=== PATIENT | male | born 1945 | race American Indian/Alaskan Native ===

== ENCOUNTER 2016-09-23 17:35 | Emergency (ER) | payer MEDICARE ==
[2016-09-23 18:13] LABS: Hematocrit 30.9 % (35.5-45.6); Hemoglobin 10.3 gm/dl (11.8-15.2); Mean Corpuscular HGB Conc 33 % (32-34); Mean Corpuscular Hemoglobin 29 pg (28-32); Mean Corpuscular Volume 87 fl (84-94); Platelet Count 277 K/mm3 (140-440); Red Blood Count 3.55 M/mm3 (3.65-5.03); Red Cell Distribution Width 13.8 % (13.2-15.2); White Blood Count 4.5 K/mm3 (4.5-11.0)
[2016-09-23 18:33] LABS: INR 1.07 (0.87-1.13)
[2016-09-23 18:34] LABS: Partial Thromboplastin Time 28.6 Sec. (24.2-36.6)
[2016-09-23 18:38] LABS: Anion Gap 18 mmol/L; BUN/Creatinine Ratio 15.55; Blood Urea Nitrogen 28 mg/dL (9-20); Calcium 8.5 mg/dL (8.4-10.2); Carbon Dioxide 23 mmol/L (22-30); Chloride 102.6 mmol/L (98-107); Glucose 149 mg/dL (75-100); Potassium 4.4 mmol/L (3.6-5.0); Sodium 139 mmol/L (137-145)
[2016-09-23 19:32] LABS: Blastocytes % (Manual) 0 %
[2016-09-23 19:33] LABS: Diff Status Complete; Hypochromasia 1+; Ovalocytes Few
[2016-09-24] MEDS ORDERED: APRESOLINE ONE (05:41)
[2016-09-24] MEDS ORDERED: APRESOLINE PO ONE (05:45)
[2016-09-24 05:47] VITALS: BP 194/80
--- NOTE | 2016-09-24 08:18 | Emergency Department Report ---
ED Chest Pain HPI - General Chief Complaint: Chest Pain Stated Complaint: CHEST PAIN Time Seen by Provider: 09/24/16 07:57 Source: family Mode of arrival: Wheelchair Limitations: Other - History of Present Illness Initial Comments: 70-year-old male presents to the emergency department complaining of chest pain. Patient states he was having burning pain in the center of his chest that began yesterday. His pain was constant, but has resolved since arriving in the emergency department. He denies associated shortness of breath, dizziness, diaphoresis, nausea, or vomiting. The pain did not radiate. There are no other complaints. MD Complaint: chest pain -: Gradual, days(s) (1) Onset: during rest Pain Location: substernal Pain Radiation: none Severity: moderate Severity scale (0 -10): 0 Quality: other (burning) Consistency: constant, now resolved Improves With: nothing Worsens With: nothing re: denies: nausea, vomting, diaphoresis, dyspnea Other Symptoms: denies: cough, syncope, palpitations Treatments Prior to Arrival: none Aspirin use within the Past 7 Days: (0) No - Related Data Home Medications Medication Instructions Recorded Confirmed Last Taken Multivit-Min/FA/Lycopen/Lutein 1 tab PO DAILY 07/08/16 07/08/16 07/07/16 [Centrum Silver Tablet] Previous Rx's Medication Instructions Recorded Last Taken Type Aspirin 81 mg PO DAILY #30 tab.chew 07/12/16 Unknown Rx Pravastatin Sodium [Pravastatin] 20 mg PO QHS #60 tablet 07/12/16 Unknown Rx hydrALAZINE [Apresoline TAB] 25 mg PO Q8HR #90 tab 07/12/16 Unknown Rx Allergies Allergy/AdvReac Type Severity Reaction Status Date / Time No Known Allergies Allergy Verified 09/23/16 17:44 Heart Score - HEART Score History: Slightly suspicious EKG: Normal Age: > 65 Risk factors: 1-2 risk factors Troponin: < normal limit HEART Score: 3 ED Review of Systems ROS: Stated complaint: CHEST PAIN Other details as noted in HPI Comment: All other systems reviewed and negative Cardiovascular: chest pain ED Past Medical Hx - Past Medical History Previous Medical History?: Yes Hx Hypertension: Yes Hx CVA: Yes (Left side deficit) Hx Congestive Heart Failure: No Hx Diabetes: Yes Hx Deep Vein Thrombosis: No Hx Arthritis: Yes Hx Seizures: Yes (last time 30 yrs ago) Hx Asthma: No Hx COPD: No Additional medical 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 Noncompliant with medications - Surgical History Past Surgical History?: Yes Hx Pacemaker: No Hx Internal Defibrillator: No Additional Surgical History: Right shoulder surgery - Family History Family history: no significant - Social History Smoking Status: Never Smoker Substance Use Type: None - Medications Home Medications: Home Medications Medication Instructions Recorded Confirmed Last Taken Type Multivit-Min/FA/Lycopen/Lutein 1 tab PO DAILY 07/08/16 07/08/16 07/07/16 History [Centrum Silver Tablet] Aspirin 81 mg PO DAILY #30 tab.chew 07/12/16 Unknown Rx Pravastatin Sodium [Pravastatin] 20 mg PO QHS #60 tablet 07/12/16 Unknown Rx hydrALAZINE [Apresoline TAB] 25 mg PO Q8HR #90 tab 07/12/16 Unknown Rx ED Physical Exam - General Limitations: Physical Limitation, Other General appearance: alert, in no apparent distress - Head Head exam: Present: atraumatic, normocephalic - Eye Eye exam: Present: normal appearance, PERRL, EOMI - ENT ENT exam: Present: normal exam, normal orophraynx, mucous membranes moist - Neck Neck exam: Present: normal inspection, full ROM. Absent: tenderness - Respiratory Respiratory exam: Present: normal lung sounds bilaterally. Absent: respiratory distress - Cardiovascular Cardiovascular Exam: Present: normal rhythm, bradycardia, normal heart sounds - GI/Abdominal GI/Abdominal exam: Present: soft, normal bowel sounds. Absent: distended, tenderness - Extremities Exam Extremities exam: Present: normal inspection, full ROM. Absent: tenderness - Back Exam Back exam: Present: normal inspection, full ROM. Absent: tenderness - Neurological Exam Neurological exam: Present: alert, oriented X3. Absent: motor sensory deficit - Skin Skin exam: Present: warm, dry, intact ED Course Vital Signs 09/23/16 09/24/16 09/24/16 17:44 05:15 05:47 Temperature 98 F 97.8 F Pulse Rate 66 54 L 58 L Respiratory 18 20 Rate Blood Pressure 181/74 194/78 194/80 O2 Sat by Pulse 98 99 Oximetry 09/24/16 08:12 Temperature Pulse Rate Respiratory 20 Rate Blood Pressure O2 Sat by Pulse 99 Oximetry GUTIERREZ score - Gutierrez Score Age > 65: (1) Yes Aspirin use within the Past 7 Days: (0) No 3 or more CAD Risk Factors: (1) Yes 2 or more Angina events in past 24 hrs: (1) Yes Known CAD with more than 50% Stenosis: (0) No Elevated Cardiac Markers: (0) No ST Deviation Greater than 0.5mm: (0) No GUTIERREZ Score: 3 ED Medical Decision Making - Lab Data Result diagrams: 09/23/16 17:50 09/23/16 17:50 - EKG Data -: EKG Interpreted by Me EKG shows normal: sinus rhythm, axis, intervals Rate: bradycardia - EKG Data When compared to previous EKG there are: no significant change Interpretation: unchanged when compared t (07/08/2016), LVH (with repolarization abnormality), other (first-degree AV block) - Medical Decision Making Patient has remained pain-free in the emergency department. His ECG is unchanged from previous. He has had 3 negative troponin T tests. Discussion held with the patient regarding admission due to his multiple risk factors. Patient states he would like to go home. Patient understands risks involved with being discharged home at this time. He is instructed to contact his primary care physician in the morning for close follow-up. He is also instructed to return to the emergency department should his symptoms recur. - Differential Diagnosis ACS, atypical chest pain, GERD Critical care attestation.: If time is entered above; I have spent that time in minutes in the direct care of this critically ill patient, excluding procedure time. ED Disposition Clinical Impression: Acute chest pain Disposition: DC-01 TO HOME OR SELFCARE Is pt being admited?: No Condition: Stable Instructions: Chest Pain (ED) Referrals: PRIMARY CARE, [Primary Care Provider] - 2-3 Days Time of Disposition: 08:25
== END 2016-09-24 08:44 | disposition home or self-care (01) ==
LOC: ED 17:35
DX: R07.9 Chest pain, unspecified (principal); I10 Essential (primary) hypertension; I63.9 Cerebral infarction, unspecified; E11.9 Type 2 diabetes mellitus without complications; M19.90 Unspecified osteoarthritis, unspecified site; Z79.82 Long term (current) use of aspirin
CPT/HCPCS: 36415; 80048; 84484; 85007; 85025; 85610; 85730; 93005; 93010

== ENCOUNTER 2016-10-03 12:19 | Emergency (ER) | payer MEDICARE ==
[2016-10-03 12:57] LABS: Basophils % (Auto) 1.9 % (0.0-1.8); Eosinophils % (Auto) 3.8 % (0.0-4.3); Hematocrit 33.1 % (35.5-45.6); Hemoglobin 10.9 gm/dl (11.8-15.2); Mean Corpuscular HGB Conc 33 % (32-34); Mean Corpuscular Hemoglobin 29 pg (28-32); Mean Corpuscular Volume 88 fl (84-94); Platelet Count 284 K/mm3 (140-440); Red Blood Count 3.76 M/mm3 (3.65-5.03); Red Cell Distribution Width 13.7 % (13.2-15.2); White Blood Count 3.7 K/mm3 (4.5-11.0)
[2016-10-03 13:17] LABS: BUN/Creatinine Ratio 16.66; Chloride 104.1 mmol/L (98-107); Potassium 4.5 mmol/L (3.6-5.0)
[2016-10-03] MEDS ORDERED: PEPCID IV ONE (13:34)
[2016-10-03] MEDS ORDERED: APRESOLINE IV ONE (13:35)
[2016-10-03] MEDS ORDERED: ALUM-MAG HYDROX-SIMETH 200-200-20MG/5ML PO ONE (13:35)
[2016-10-03] MEDS ORDERED: CARAFATE PO ONE (13:35)
--- NOTE | 2016-10-03 13:35 | Emergency Department Report ---
ED Chest Pain HPI - General Chief Complaint: Chest Pain Stated Complaint: CHEST PAIN Time Seen by Provider: 10/03/16 13:17 Source: patient, EMS, RN notes reviewed, old records reviewed Mode of arrival: Stretcher Limitations: Physical Limitation - History of Present Illness Initial Comments: This is a 70-year-old male. He is previously unknown to me. Past medical history includes back pain, hypertension, diabetes, chronic asymptomatic sinus bradycardia As per review of old medical records, the patient had a negative heart catheterization in 2013 with an ejection fraction 55%, and had a nuclear stress test that was performed earlier on this here. He was evaluated and interviewed by the travel insurance agent, emiliano Green, who stated "I have canceled the cardiac catheterization plan for this patient. On his presentation, there was no chest pain, instead he complains of low back musculoskeletal type pain, as well as nonspecific abdominal pain. I have reviewed the thallium stress test ([performed June 2016]), which shows a basilar defect of mild intensity, likely diaphragmatic attenuation." Cardiology at that time recommended no further cardiac workup/risk stratification. The patient is brought to the hospital today by EMS with complaint of chest pain. The chest pain is right-sided and does not radiate to the back, arms or neck. There is no nausea, vomiting, diaphoresis. The patient described the pain as "pins sticking him in the chest." Patient has no shortness of breath, lower extremity pain or lower extremity swelling. No recent trips greater than 4 hours. No recent hospital admissions. No cough. Patient requested to eat. MD Complaint: chest pain -: hour(s) (7 am this morning) Onset: during rest Pain Location: right chest Pain Radiation: none Severity: mild Quality: aching Consistency: intermittent Improves With: nothing Worsens With: nothing re: denies: nausea, vomting, diaphoresis, dyspnea, sense of impending doom Treatments Prior to Arrival: aspirin, nitroglycerin Aspirin use within the Past 7 Days: (1) Yes - Related Data On Oral Contraceptives: No Home Medications Medication Instructions Recorded Confirmed Last Taken Multivit-Min/FA/Lycopen/Lutein 1 tab PO DAILY 07/08/16 07/08/16 07/07/16 [Centrum Silver Tablet] Previous Rx's Medication Instructions Recorded Last Taken Type Aspirin 81 mg PO DAILY #30 tab.chew 07/12/16 Unknown Rx Pravastatin Sodium [Pravastatin] 20 mg PO QHS #60 tablet 07/12/16 Unknown Rx hydrALAZINE [Apresoline TAB] 25 mg PO Q8HR #90 tab 07/12/16 Unknown Rx Allergies Allergy/AdvReac Type Severity Reaction Status Date / Time No Known Allergies Allergy Verified 09/23/16 17:44 Heart Score - HEART Score History: Slightly suspicious EKG: Non-specific Age: > 65 Risk factors: > 3 risk factors or hx of atherosclerotic disease Troponin: < normal limit HEART Score: 5 - Critical Actions Critical Actions: 4-6 pts:12-16.6% risk of adverse cardiac event. 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 Noncompliant with medications - Surgical History Hx Pacemaker: No Hx Internal Defibrillator: No Additional Surgical History: Right shoulder surgery - Social History Smoking Status: Never Smoker Substance Use Type: None - Medications Home Medications: Home Medications Medication Instructions Recorded Confirmed Last Taken Type Multivit-Min/FA/Lycopen/Lutein 1 tab PO DAILY 07/08/16 07/08/16 07/07/16 History [Centrum Silver Tablet] Aspirin 81 mg PO DAILY #30 tab.chew 07/12/16 Unknown Rx Pravastatin Sodium [Pravastatin] 20 mg PO QHS #60 tablet 07/12/16 Unknown Rx hydrALAZINE [Apresoline TAB] 25 mg PO Q8HR #90 tab 07/12/16 Unknown Rx ED Physical Exam - General Limitations: Physical Limitation General appearance: alert, in no apparent distress - Head Head exam: Present: atraumatic, normocephalic - Eye Eye exam: Present: normal appearance, EOMI. Absent: nystagmus - ENT ENT exam: Present: normal exam, normal orophraynx, mucous membranes moist, normal external ear exam - Neck Neck exam: Present: normal inspection, full ROM - Respiratory Respiratory exam: Present: normal lung sounds bilaterally. Absent: respiratory distress, wheezes, rales, rhonchi, stridor, chest wall tenderness, accessory muscle use, decreased breath sounds, prolonged expiratory - Cardiovascular Cardiovascular Exam: Present: regular rate, normal rhythm, normal heart sounds. Absent: systolic murmur, diastolic murmur, rubs, gallop - GI/Abdominal GI/Abdominal exam: Present: soft, normal bowel sounds. Absent: distended, tenderness, guarding, rebound, rigid - Rectal Rectal exam: Present: deferred - Extremities Exam Extremities exam: Present: normal inspection, normal capillary refill. Absent: calf tenderness - Back Exam Back exam: Present: normal inspection. Absent: CVA tenderness (R), paraspinal tenderness - Neurological Exam Neurological exam: Present: alert, oriented X3, motor sensory deficit (there is chronic weakness in the left upper extremity which is not new, worse or different) - Psychiatric Psychiatric exam: Present: normal affect, normal mood - Skin Skin exam: Present: warm, dry, intact, normal color. Absent: rash ED Course Vital Signs 10/03/16 10/03/16 10/03/16 12:24 14:49 15:57 Temperature 98.4 F 98.1 F Pulse Rate 60 71 Respiratory 16 Rate Blood Pressure 202/82 Blood Pressure 162/58 [Left] O2 Sat by Pulse 99 Oximetry - Reevaluation(s) Reevaluation #1: 10/03/16 16:54 troponin negative 2. Chest x-ray negative. Feels improved. Blood pressure improved. Patient will be discharged with instructions to follow up with outpatient cardiology. Return precautions are reviewed HOMER score - Homer Score Age > 65: (1) Yes Aspirin use within the Past 7 Days: (1) Yes 3 or more CAD Risk Factors: (1) Yes 2 or more Angina events in past 24 hrs: (0) No Known CAD with more than 50% Stenosis: (0) No Elevated Cardiac Markers: (0) No ST Deviation Greater than 0.5mm: (0) No HOMER Score: 3 ED Medical Decision Making - Lab Data Result diagrams: 10/03/16 12:41 10/03/16 12:41 Vital Signs 10/03/16 10/03/16 12:24 14:49 Temperature 98.4 F Pulse Rate 60 Blood Pressure 202/82 Lab Results 10/03/16 10/03/16 10/03/16 Range/Units 12:41 12:41 13:46 WBC 3.7 L (4.5-11.0) K/mm3 RBC 3.76 (3.65-5.03) M/mm3 Hgb 10.9 L (11.8-15.2) gm/dl Hct 33.1 L (35.5-45.6) % MCV 88 (84-94) fl MCH 29 (28-32) pg MCHC 33 (32-34) % RDW 13.7 (13.2-15.2) % Plt Count 284 (140-440) K/mm3 Lymph % (Auto) 40.6 H (13.4-35.0) % [place]ck[place] % (Auto) 6.9 (0.0-7.3) % Eos % (Auto) 3.8 (0.0-4.3) % Baso % (Auto) 1.9 H (0.0-1.8) % Lymph # 1.5 (1.2-5.4) K/mm3 [place]ck[place] # 0.3 (0.0-0.8) K/mm3 Eos # 0.1 (0.0-0.4) K/mm3 Baso # 0.1 (0.0-0.1) K/mm3 Seg Neutrophils % 46.8 (40.0-70.0) % Seg Neutrophils # 1.7 L (1.8-7.7) K/mm3 PT 13.6 (12.2-14.9) Sec. INR 0.99 (0.87-1.13) Sodium 140 (137-145) mmol/L Potassium 4.5 (3.6-5.0) mmol/L Chloride 104.1 (98-107) mmol/L Carbon Dioxide 19 L (22-30) mmol/L Anion Gap 21 mmol/L BUN 25 H (9-20) mg/dL Creatinine 1.5 (0.8-1.5) mg/dL Estimated GFR 56 ml/min BUN/Creatinine Ratio 16.66 % Glucose 99 (75-100) mg/dL Calcium 9.0 (8.4-10.2) mg/dL Troponin T 0.016 (0.00-0.029) ng/mL - EKG Data -: EKG Interpreted by Me - EKG Data 10/03/16 15:17 EKG #1 demonstrates sinus, 60 bpm, normal axis, normal intervals , high left ventricular voltage l /left ventricular hypertrophy, T-wave inversions 1 in aVL, abnormal EKG, not morphologically consistent with STEMI, appears unchanged when compared to prior EKG from 09/24/2016 Repeat EKG sinus EKG #2 was unchanged 10/03/16 16:55 - Radiology Data Radiology results: pending, image reviewed interpreted by me: X-ray the chest is negative for acute disease - Medical Decision Making Differential diagnosis: GERD, gastritis, pneumonia, acute coronary syndrome, poorly controlled chronic hypertension Assessment and plan: 70-year-old male with atypical chest pain, abnormal EKG unchanged from prior, troponin negative 2, EKG unchanged 2. Case was discussed with cardiology. Patient has had a recent ACS risk stratification, and as per cardiology, does not require admission for repeat ACS risk stratification. He is suitable to follow up with his outpatient primary care doctor, he felt improved after pain medicine, and he is instructed as to importance of blood pressure control. The patient had equal pulses in 4 extremities, therefore I think aortic disease is unlikely. Critical care attestation.: If time is entered above; I have spent that time in minutes in the direct care of this critically ill patient, excluding procedure time. ED Disposition Clinical Impression: Chest pain, Hypertension Disposition: DC-01 TO HOME OR SELFCARE Is pt being admited?: No Does the pt Need Aspirin: No Condition: Stable Instructions: Chest Pain (ED), Hypertension (ED) Additional Instructions: Continue current outpatient medications. Follow-up with the primary care doctor or annealing torch operator within the next 3-5 days. Blood pressure was very elevated in the emergency department. it needs to better controlled. This is why it is very important to closely follow up with your outpatient primary care doctor or annealing torch operator. Long-term complications of hypertension and elevated blood pressure includes stroke, heart attack, disability, , paralysis, loss of quality of life. Return to the ER right away with new pain, worsened pain, migration of pain, fevers, chills, confusion, shortness of breath, intractable nausea or vomiting, inability to tolerate liquid feeds. Referrals: CAMILLE ZAMORA MD [Primary Care Provider] - 3-5 Days FREDI GREEN MD [Staff Physician] - 3-5 Days DELICIA LOWERY MD [Staff Physician] - 3-5 Days
[2016-10-03 14:12] LABS: INR 0.99 (0.87-1.13)
[2016-10-03 17:37] VITALS: BP 169/47
--- NOTE | 2016-10-04 07:21 | XRay Report ---
AP CHEST: HISTORY: chest pain Compared to 07/10/16. AP view of the chest demonstrates a normal mediastinal and cardiac contour with clear lungs and normal bony and soft tissue structures. IMPRESSION: Unremarkable AP chest.
== END 2016-10-03 17:05 | disposition home or self-care (01) ==
LOC: ED 12:19
DX: R07.9 Chest pain, unspecified (principal); I10 Essential (primary) hypertension; E11.9 Type 2 diabetes mellitus without complications; M19.90 Unspecified osteoarthritis, unspecified site; Z86.73 Personal history of transient ischemic attack (TIA), and cerebral infarction without residual deficits; Z79.82 Long term (current) use of aspirin
CPT/HCPCS: 36415; 71020; 80048; 84484; 85025; 85610; 93005; 93010; 96374; 96375; 99285; J0360

== ENCOUNTER 2016-10-16 18:13 | Emergency (ER) | payer MEDICARE ==
[2016-10-16] MEDS ORDERED: CATAPRES ONE (19:39)
[2016-10-16] MEDS ORDERED: CATAPRES PO ONE (21:05)
[2016-10-16] MEDS ORDERED: SUBLIMAZE IV ONE (21:38)
--- NOTE | 2016-10-16 21:39 | Emergency Department Report ---
ED General Adult HPI - General Chief complaint: Extremity Injury, Upper Stated complaint: LEFT SHOULDER PAIN Time Seen by Provider: 10/16/16 21:13 Source: patient, RN notes reviewed, old records reviewed Mode of arrival: Ambulatory Limitations: Physical Limitation - History of Present Illness Initial comments: This is a 70-year-old male. I have evaluated him in the past. Past medical history includes back pain, hypertension, diabetes, chronic asymptomatic sinus bradycardia. Patient presents to the ER today with complaint of right shoulder pain. Patient reports a mechanical fall 3 days ago. Prior to the fall, there was no dizziness, lightheadedness, chest pain or shortness of breath. He reports falling onto his right shoulder, and onto his neck. He further reports that he has severe sharp right shoulder pain, and reports that he thinks that he broke the pain within his right shoulder. He also describes diffuse paracervical and cervical neck pain, and right upper extremity weakness and decreased sensation. There is no bladder or bowel retention or incontinence. There is no saddle anesthesia. The pain is sharp. It increases with palpation and range of motion. It decreases with rest. It does not radiate anywhere. -: Sudden, days(s) Location: neck, right, upper extremity Consistency: constant Improves with: rest Worsens with: movement Associated Symptoms: weakness. denies: confusion, chest pain, cough, diaphoresis, loss of appetite, malaise, nausea/vomiting, shortness of breath, syncope - Related Data Home Medications Medication Instructions Recorded Confirmed Last Taken Multivit-Min/FA/Lycopen/Lutein 1 tab PO DAILY 07/08/16 10/16/16 07/07/16 [Centrum Silver Tablet] Previous Rx's Medication Instructions Recorded Last Taken Type Aspirin 81 mg PO DAILY #30 tab.chew 07/12/16 Unknown Rx Pravastatin Sodium [Pravastatin] 20 mg PO QHS #60 tablet 07/12/16 Unknown Rx hydrALAZINE [Apresoline TAB] 25 mg PO Q8HR #90 tab 07/12/16 Unknown Rx Famotidine [Pepcid] 20 mg PO QDAY #30 tablet 10/03/16 Unknown Rx Sucralfate [Carafate] 1 gm PO Q6HR PRN #120 tablet 10/03/16 Unknown Rx Allergies Allergy/AdvReac Type Severity Reaction Status Date / Time No Known Allergies Allergy Verified 09/23/16 17:44 ED Review of Systems ROS: Stated complaint: LEFT SHOULDER PAIN Other details as noted in HPI Constitutional: denies: fever, malaise Eyes: denies: vision change ENT: denies: epistaxis Respiratory: denies: cough Cardiovascular: denies: chest pain Gastrointestinal: denies: abdominal pain Musculoskeletal: back pain, arthralgia, myalgia Skin: denies: lesions Neurological: weakness, numbness, paresthesias ED Past Medical Hx - Past Medical History Previous Medical History?: Yes Hx Hypertension: Yes Hx CVA: Yes (Left side deficit) Hx Congestive Heart Failure: No Hx Diabetes: Yes Hx Deep Vein Thrombosis: No Hx Arthritis: Yes Hx Seizures: Yes (last time 30 yrs ago) Hx Asthma: No Hx COPD: No Additional medical 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 Noncompliant with medications - Surgical History Past Surgical History?: Yes Hx Pacemaker: No Hx Internal Defibrillator: No Additional Surgical History: Right shoulder surgery - Social History Smoking Status: Former Smoker Substance Use Type: Alcohol - Medications Home Medications: Home Medications Medication Instructions Recorded Confirmed Last Taken Type Multivit-Min/FA/Lycopen/Lutein 1 tab PO DAILY 07/08/16 10/16/16 07/07/16 History [Centrum Silver Tablet] Aspirin 81 mg PO DAILY #30 tab.chew 07/12/16 10/16/16 Unknown Rx Pravastatin Sodium [Pravastatin] 20 mg PO QHS #60 tablet 07/12/16 10/16/16 Unknown Rx hydrALAZINE [Apresoline TAB] 25 mg PO Q8HR #90 tab 07/12/16 10/16/16 Unknown Rx Famotidine [Pepcid] 20 mg PO QDAY #30 tablet 10/03/16 10/16/16 Unknown Rx Sucralfate [Carafate] 1 gm PO Q6HR PRN #120 tablet 10/03/16 10/16/16 Unknown Rx ED Physical Exam - General Limitations: Physical Limitation General appearance: alert, in no apparent distress - Head Head exam: Present: atraumatic, normocephalic - Eye Eye exam: Present: normal appearance, EOMI. Absent: nystagmus - ENT ENT exam: Present: normal exam, normal orophraynx, mucous membranes moist, normal external ear exam - Neck Neck exam: Present: normal inspection, tenderness - Respiratory Respiratory exam: Present: normal lung sounds bilaterally. Absent: respiratory distress, wheezes, rales, rhonchi, stridor, chest wall tenderness - Cardiovascular Cardiovascular Exam: Present: regular rate, normal rhythm, normal heart sounds. Absent: systolic murmur, diastolic murmur, rubs, gallop - GI/Abdominal GI/Abdominal exam: Present: soft, normal bowel sounds. Absent: distended, tenderness, guarding, rebound, rigid - Rectal Rectal exam: Present: deferred - Extremities Exam Extremities exam: Present: normal inspection, tenderness (there is palpable right shoulder tenderness. The compartments are soft. 2+ pulses noted in the bilateral upper extremities, bilateral lower extremity's.), normal capillary refill, other (sensation intact to light touch and pain in the bilateral upper and lower extremities. However, patient versus decreased sensation to pinprick and light touch in the right upper extremity.). Absent: full ROM, pedal edema, joint swelling, calf tenderness - Back Exam Back exam: Present: normal inspection, full ROM. Absent: tenderness, CVA tenderness (R), CVA tenderness (L), muscle spasm, paraspinal tenderness, vertebral tenderness - Neurological Exam Neurological exam: Present: alert, oriented X3, motor sensory deficit (there is 5 out of 5 strength left upper extremity, 5 out of 5 strength bilateral lower extremities. There is 4 out of 5 strength right upper extremity, however this may be limited to pain.), other (sensation is intact to light touch bilaterally in the deltoid, median, radial, ulnar distribution. Patient reports decreased sensation in the right upper, and.) - Psychiatric Psychiatric exam: Present: normal affect, normal mood - Skin Skin exam: Present: warm, dry, intact, normal color. Absent: rash ED Course Vital Signs 10/16/16 10/16/16 10/16/16 19:26 21:01 21:10 Temperature 98.4 F Pulse Rate 60 52 L 81 Respiratory 18 16 Rate Blood Pressure 246/96 240/97 Blood Pressure 185/75 [Left] O2 Sat by Pulse 99 100 Oximetry - Reevaluation(s) Reevaluation #1: 10/16/16 21:49 Differential diagnosis: Intracranial injury, cervical spine injury, brachial plexopathy, shoulder fracture, shoulder dislocation, shoulder hardware fracture Assessment and plan: 70-year-old male status post reported mechanical fall 3 days ago, now with right shoulder pain and tenderness, plain film of the shoulder suggests hardware fracture, he endorses weakness, decreased sensation to light touch. He is placed in a cervical collar. We will maintain cervical spine precautions. Asked at noncontrast CT scan of the brain and cervical spine are ordered. Laboratory studies ordered. Pain medication is ordered. He is initially hypertensive, currently his blood pressure is 166/71. No other injuries noted on secondary survey. Patient will most likely require transfer to a trauma center and has neurosurgery/spine surgery available for consultation, as this facility does not have either of those services available. Reevaluation #2: 10/16/16 23:34 CT scan of the brain and cervical spine negative for fracture/ dislocation/intracranial hemorrhage. DJD noted. Case was presented to the trauma physician at [facility], Dr. Noyola, and they accepted the patient is an ER to ER transfer for trauma surgery consultation. Given that the patient is endorsing blunt trauma with dominant extremity neurologic complaints , and at this hospital does not have neurosurgery spine surgery of elbow for consultation, it is in the patient's best interests to have a formal consultation and evaluation by the aforementioned subspecialist. ED Medical Decision Making - Lab Data Result diagrams: 10/16/16 21:46 10/16/16 21:46 Vital Signs 10/16/16 10/16/16 19:26 21:01 Temperature 98.4 F Pulse Rate 60 52 L Respiratory 18 16 Rate Blood Pressure 246/96 Blood Pressure 185/75 [Left] O2 Sat by Pulse 99 100 Oximetry - Radiology Data Radiology results: image reviewed interpreted by me: X-ray of the right shoulder demonstrates fractured hardware, DJD, no obvious shoulder fracture or dislocation. Critical care attestation.: If time is entered above; I have spent that time in minutes in the direct care of this critically ill patient, excluding procedure time. ED Disposition Clinical Impression: Hypertension, Right shoulder pain, Right arm weakness Disposition: [id number] GEN HOSP IP Is pt being admited?: No Does the pt Need Aspirin: No Condition: Good Instructions: Hypertension (ED) Referrals: PRIMARY CARE, [Primary Care Provider] - 3-5 Days
--- NOTE | 2016-10-16 21:51 | XRay Report ---
FINAL REPORT EXAM: XR SHOULDER 2+V RT HISTORY: RIGHT SHOULDER PAIN TECHNIQUE: 3 views of right shoulder. PRIORS: None. FINDINGS: Postsurgical change in the glenoid, including metallic screw in the anterior margin. Degenerative change also in glenohumeral and AC joints. No apparent fracture or dislocation. Soft tissues grossly unremarkable. IMPRESSION: 1. No acute osseous abnormality. 2. Postsurgical and degenerative change.
[2016-10-16 22:05] LABS: Basophils % (Auto) 0.7 % (0.0-1.8); Eosinophils % (Auto) 2.1 % (0.0-4.3); Hematocrit 30.4 % (35.5-45.6); Hemoglobin 10.4 gm/dl (11.8-15.2); Mean Corpuscular HGB Conc 34 % (32-34); Mean Corpuscular Hemoglobin 29 pg (28-32); Mean Corpuscular Volume 86 fl (84-94); Platelet Count 270 K/mm3 (140-440); Red Blood Count 3.55 M/mm3 (3.65-5.03); Red Cell Distribution Width 13.8 % (13.2-15.2); White Blood Count 5.4 K/mm3 (4.5-11.0)
[2016-10-16 22:18] LABS: INR 1.06 (0.87-1.13)
[2016-10-16 22:19] LABS: Partial Thromboplastin Time 28.2 Sec. (24.2-36.6)
[2016-10-16 22:26] LABS: Alanine Aminotransferase 10 units/L (7-56); Albumin 3.6 g/dL (3.9-5); Albumin/Globulin Ratio 1.3 %; Alkaline Phosphatase 58 units/L (35-129); Anion Gap 17 mmol/L; BUN/Creatinine Ratio 16.42; Blood Urea Nitrogen 23 mg/dL (9-20); Calcium 8.8 mg/dL (8.4-10.2); Carbon Dioxide 23 mmol/L (22-30); Chloride 101.6 mmol/L (98-107); Creatine Kinase 194 units/L (55-170); Glucose 124 mg/dL (75-100); Sodium 138 mmol/L (137-145); Total Protein 6.4 g/dL (6.3-8.2)
--- NOTE | 2016-10-16 22:51 | Cat Scan Report ---
FINAL REPORT EXAM: CT HEAD/BRAIN WO CON HISTORY: Trauma TECHNIQUE: Noncontrast CT axial images of the brain. PRIORS: 07 July 2016. FINDINGS: No parenchymal mass, mass effect, hemorrhage, midline shift or hydrocephalus. No evidence of acute cortical infarct. No abnormal, extra-axial fluid or air collection. Small encephalomalacic focus in right posterior frontoparietal region again noted and may represent old ischemic change or infarct. Probable old lacunar infarct changes in bilateral cerebellar hemispheres again noted. Osseous calvarium grossly intact. IMPRESSION: 1. No acute intracranial findings. 2. Chronic ischemic changes suspected.
[2016-10-16 22:57] VITALS: BP 240/97
--- NOTE | 2016-10-16 23:00 | Cat Scan Report ---
FINAL REPORT EXAM: CT CERVICAL SPINE WO CON HISTORY: Trauma TECHNIQUE: Spiral CT scanning of the cervical spine, with axial images and multiplanar reformations. PRIORS: None. FINDINGS: Multilevel degenerative disc disease and spondylosis, including right paracentral disc-osteophyte complex in the C4-5 level partially flattening right ventral thecal sac and causing right neural foraminal encroachment. No acute compression deformity or gross malalignment of cervical vertebral bodies. No acute fracture identified. No acute, osseous central spinal canal encroachment. Paraspinal soft tissues grossly unremarkable. Possible pleuro-parenchymal thickening and scarring in the bilateral lung apices. IMPRESSION: 1. No acute compression deformity or apparent fracture in the cervical spine. 2. Degenerative spondylosis.
== END 2016-10-17 01:34 | disposition short-term general hospital (02) ==
LOC: ED 18:13
DX: M62.81 Muscle weakness (generalized) (principal); M25.511 Pain in right shoulder; I10 Essential (primary) hypertension; E11.9 Type 2 diabetes mellitus without complications; M19.90 Unspecified osteoarthritis, unspecified site; Z87.891 Personal history of nicotine dependence; Z79.82 Long term (current) use of aspirin; W19.XXXA Unspecified fall, initial encounter; Y93.89 Activity, other specified; Y99.9 Unspecified external cause status; Y92.89 Other specified places as the place of occurrence of the external cause
CPT/HCPCS: 36415; 70450; 72125; 73030; 80053; 82550; 84484; 85025; 85610; 85730; 96374; 99285; J3010

== ENCOUNTER 2017-06-07 11:45 | Inpatient (IN) | payer MEDICARE ==
[2017-06-07 12:34] LABS: Basophils # (Auto) 0.1 K/mm3 (0.0-0.1); Eosinophils # (Auto) 0.1 K/mm3 (0.0-0.4); Hematocrit 28.1 % (35.5-45.6); Hemoglobin 9.6 gm/dl (11.8-15.2); Lymphocytes # (Auto) 1.1 K/mm3 (1.2-5.4); Lymphocytes % (Auto) 40.3 % (13.4-35.0); Mean Corpuscular HGB Conc 34 % (32-34); Mean Corpuscular Hemoglobin 29 pg (28-32); Mean Corpuscular Volume 87 fl (84-94); Monocytes # (Auto) 0.2 K/mm3 (0.0-0.8); Monocytes % (Auto) 6.7 % (0.0-7.3); Platelet Count 245 K/mm3 (140-440); Red Blood Count 3.25 M/mm3 (3.65-5.03); Red Cell Distribution Width 13.3 % (13.2-15.2)
[2017-06-07 12:55] LABS: BUN/Creatinine Ratio 13; Blood Urea Nitrogen 20 mg/dL (9-20); Calcium 8.7 mg/dL (8.4-10.2); Hemolysis Index 4
--- NOTE | 2017-06-07 14:46 | XRay Report ---
AP CHEST: HISTORY: chest pain There is mild cardiomegaly mild central pulmonary venous congestion. The lungs are hyperinflated but clear. No evidence for pneumonia, CHF or pneumothorax. IMPRESSION: Cardiomegaly and pulmonary venous congestion.
--- NOTE | 2017-06-07 14:46 | Emergency Department Report ---
ED Chest Pain HPI - General Chief Complaint: Chest Pain Stated Complaint: WEAKNESS/SORE THROAT/BODY PAIN Time Seen by Provider: 06/07/17 14:18 Source: patient Mode of arrival: Ambulatory Limitations: No Limitations - History of Present Illness Initial Comments: Gilberto 71-year-old gentleman that presents to the emergency room with complaints of chest pain 2 days. Patient states that the chest pain is a burning sensation in his left chest and is also having left arm numbness. Patient states that he feels weak today. Patient also complains of sore throat and body pain. MD Complaint: chest pain -: Sudden Pain Location: substernal, left chest Pain Radiation: LUE Severity: moderate Severity scale (0 -10): 5 Quality: tightness, heaviness Consistency: constant Improves With: rest, remaining still Worsens With: exertion, movement re: dyspnea. denies: nausea, vomting, diaphoresis, sense of impending doom Other Symptoms: denies: cough, fever, syncope, rash, acid taste in mouth, leg swelling, palpitations, burping Treatments Prior to Arrival: none Aspirin use within the Past 7 Days: (0) No - Related Data On Oral Contraceptives: No Home Medications Medication Instructions Recorded Confirmed Last Taken Multivit-Min/FA/Lycopen/Lutein 1 tab PO DAILY 07/08/16 03/27/17 07/07/16 [Centrum Silver Tablet] Previous Rx's Medication Instructions Recorded Last Taken Type Aspirin 81 mg PO DAILY #30 tab.chew 07/12/16 Unknown Rx Famotidine [Pepcid] 20 mg PO QDAY #30 tablet 10/03/16 Unknown Rx NIFEdipine XL [Procardia Xl] 60 mg PO QDAY #30 tablet 03/28/17 Unknown Rx Valsartan [Diovan] 160 mg PO DAILY #30 tablet 03/28/17 Unknown Rx Allergies Allergy/AdvReac Type Severity Reaction Status Date / Time No Known Allergies Allergy Verified 06/07/17 12:00 Heart Score - HEART Score History: Slightly suspicious EKG: Non-specific Age: > 65 Risk factors: 1-2 risk factors Troponin: < normal limit HEART Score: 4 ED Review of Systems ROS: Stated complaint: WEAKNESS/SORE THROAT/BODY PAIN Other details as noted in HPI Constitutional: weakness. denies: chills, fever Eyes: denies: eye pain, eye discharge, vision change ENT: denies: ear pain, throat pain Respiratory: shortness of breath. denies: cough, wheezing Cardiovascular: chest pain. denies: palpitations Endocrine: no symptoms reported Gastrointestinal: denies: abdominal pain, nausea, diarrhea Genitourinary: denies: urgency, dysuria Musculoskeletal: denies: back pain, joint swelling, arthralgia Skin: denies: rash, lesions Neurological: weakness. 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 - Surgical History Past Surgical History?: Yes Hx Pacemaker: No Hx Internal Defibrillator: No Additional Surgical History: Right shoulder surgery - Family History Family history: hypertension - Social History Smoking Status: Never Smoker Substance Use Type: None - Medications Home Medications: Home Medications Medication Instructions Recorded Confirmed Last Taken Type Multivit-Min/FA/Lycopen/Lutein 1 tab PO DAILY 07/08/16 03/27/17 07/07/16 History [Centrum Silver Tablet] Aspirin 81 mg PO DAILY #30 tab.chew 07/12/16 03/27/17 Unknown Rx Famotidine [Pepcid] 20 mg PO QDAY #30 tablet 10/03/16 03/27/17 Unknown Rx NIFEdipine XL [Procardia Xl] 60 mg PO QDAY #30 tablet 03/28/17 Unknown Rx Valsartan [Diovan] 160 mg PO DAILY #30 tablet 03/28/17 Unknown Rx ED Physical Exam - General Limitations: No Limitations General appearance: alert, in no apparent distress - Head Head exam: Present: atraumatic, normocephalic - Eye Eye exam: Present: normal appearance - ENT ENT exam: Present: mucous membranes moist - Neck Neck exam: Present: normal inspection - Respiratory Respiratory exam: Present: normal lung sounds bilaterally. Absent: respiratory distress - Cardiovascular Cardiovascular Exam: Present: regular rate, normal rhythm. Absent: systolic murmur, diastolic murmur, rubs, gallop - GI/Abdominal GI/Abdominal exam: Present: soft, normal bowel sounds - Rectal Rectal exam: Present: deferred - Extremities Exam Extremities exam: Present: normal inspection - Back Exam Back exam: Present: normal inspection - Neurological Exam Neurological exam: Present: alert, oriented X3 - Psychiatric Psychiatric exam: Present: normal affect, normal mood - Skin Skin exam: Present: warm, dry, intact, normal color. Absent: rash ED Course Vital Signs 06/07/17 06/07/17 06/07/17 11:56 14:17 14:18 Temperature 98.9 F 98.1 F Pulse Rate 52 L 53 L Respiratory 18 13 13 Rate Blood Pressure 185/62 Blood Pressure 196/49 [Left] O2 Sat by Pulse 99 100 100 Oximetry - Reevaluation(s) Reevaluation #1: All results discussed with patient. Patient grew plan to admit to hospital. Hospitalist consult. Hospitalist agreed to admit. 06/07/17 15:55 GUTIERREZ score - Gutiererz Score Age > 65: (1) Yes Aspirin use within the Past 7 Days: (1) Yes 3 or more CAD Risk Factors: (1) Yes 2 or more Angina events in past 24 hrs: (0) No Known CAD with more than 50% Stenosis: (0) No Elevated Cardiac Markers: (0) No ST Deviation Greater than 0.5mm: (0) No GUTIERREZ Score: 3 ED Medical Decision Making - Lab Data Result diagrams: 06/07/17 12:19 06/07/17 12:19 - EKG Data -: EKG Interpreted by Me EKG shows normal: sinus rhythm, axis, intervals, QRS complexes, ST-T waves Rate: bradycardia - EKG Data Interpretation: LVH - Radiology Data Radiology results: image reviewed - Medical Decision Making Patient's 71-year-old male who presents emergent chest pain. Will admit patient to the hospital further evaluation and treatment. Patient agrees with plan of care. - Differential Diagnosis cp. acs. chf Critical care attestation.: If time is entered above; I have spent that time in minutes in the direct care of this critically ill patient, excluding procedure time. ED Disposition Clinical Impression: Chest pain, Uncontrolled hypertension, Anemia, Shortness of breath Disposition: OP ADMIT IP TO THIS HOSP Is pt being admited?: Yes Does the pt Need Aspirin: No Condition: Serious Time of Disposition: 15:05
[2017-06-07] MEDS ORDERED: APRESOLINE IV ONE (15:04)
[2017-06-07] MEDS ORDERED: APRESOLINE ONE (15:05)
[2017-06-07] MEDS: ASPIRIN PO ONE ×2 (15:10→15:15)
[2017-06-07] MEDS ORDERED: ASPIRIN ONE (15:11)
[2017-06-07] MEDS ORDERED: MORPHINE IV PRN (20:23)
[2017-06-07] MEDS ORDERED: DILAUDID IV PRN (20:23)
[2017-06-07] MEDS ORDERED: ZOFRAN IV PRN (20:23)
[2017-06-07] MEDS ORDERED: PERCOCET 5/325 PO PRN (20:23)
[2017-06-07] MEDS ORDERED: TYLENOL PO PRN (20:23)
[2017-06-07] MEDS ORDERED: SODIUM CHLORIDE FLUSH SYRINGE 10 ML IV PRN (20:23)
--- NOTE | 2017-06-07 20:23 | History and Physical Report ---
History of Present Illness Date of examination: 06/07/17 Date of admission: 06/07/17 Chief complaint: See dictated H/p in reports History of present illness: See dictated H/p in reports Medications and Allergies Allergies Allergy/AdvReac Type Severity Reaction Status Date / Time No Known Allergies Allergy Verified 06/07/17 12:00 Home Medications Medication Instructions Recorded Confirmed Last Taken Type Multivit-Min/FA/Lycopen/Lutein 1 tab PO DAILY 07/08/16 06/07/17 06/07/17 History [Centrum Silver Tablet] Aspirin 81 mg PO DAILY #30 tab.chew 07/12/16 06/07/17 06/07/17 Rx Famotidine [Pepcid] 20 mg PO QDAY #30 tablet 10/03/16 06/07/17 06/07/17 Rx NIFEdipine XL [Procardia Xl] 60 mg PO QDAY #30 tablet 03/28/17 06/07/17 Rx Valsartan [Diovan] 160 mg PO DAILY #30 tablet 03/28/17 06/07/17 06/07/17 Rx Exam - Constitutional Vitals: Temp Pulse Resp BP Pulse Ox 98 F 60 14 94/61 100 06/07/17 19:15 06/07/17 19:15 06/07/17 19:15 06/07/17 19:15 06/07/17 19:15 Results - Labs CBC & Chem 7: 06/08/17 02:09 06/08/17 02:09 Labs: Laboratory Last Values WBC 2.8 K/mm3 (4.5-11.0) L 06/07/17 12:19 RBC 3.25 M/mm3 (3.65-5.03) L 06/07/17 12:19 Hgb 9.6 gm/dl (11.8-15.2) L 06/07/17 12:19 Hct 28.1 % (35.5-45.6) L 06/07/17 12:19 MCV 87 fl (84-94) 06/07/17 12:19 MCH 29 pg (28-32) 06/07/17 12:19 MCHC 34 % (32-34) 06/07/17 12:19 RDW 13.3 % (13.2-15.2) 06/07/17 12:19 Plt Count 245 K/mm3 (140-440) 06/07/17 12:19 Lymph % (Auto) 40.3 % (13.4-35.0) H 06/07/17 12:19 [place] % (Auto) 6.7 % (0.0-7.3) 06/07/17 12:19 Eos % (Auto) 3.0 % (0.0-4.3) 06/07/17 12:19 Baso % (Auto) 2.0 % (0.0-1.8) H 06/07/17 12:19 Lymph # 1.1 K/mm3 (1.2-5.4) L 06/07/17 12:19 [place] # 0.2 K/mm3 (0.0-0.8) 06/07/17 12:19 Eos # 0.1 K/mm3 (0.0-0.4) 06/07/17 12:19 Baso # 0.1 K/mm3 (0.0-0.1) 06/07/17 12:19 Seg Neutrophils % 48.0 % (40.0-70.0) 06/07/17 12:19 Seg Neutrophils # 1.3 K/mm3 (1.8-7.7) L 06/07/17 12:19 Sodium 141 mmol/L (137-145) 06/07/17 12:19 Potassium 4.6 mmol/L (3.6-5.0) 06/07/17 12:19 Chloride 105.3 mmol/L (98-107) 06/07/17 12:19 Carbon Dioxide 24 mmol/L (22-30) 06/07/17 12:19 Anion Gap 16 mmol/L 06/07/17 12:19 BUN 20 mg/dL (9-20) 06/07/17 12:19 Creatinine 1.6 mg/dL (0.8-1.5) H 06/07/17 12:19 Estimated GFR 52 ml/min 06/07/17 12:19 BUN/Creatinine Ratio 13 % 06/07/17 12:19 Glucose 112 mg/dL (75-100) H 06/07/17 12:19 Calcium 8.7 mg/dL (8.4-10.2) 06/07/17 12:19 Troponin T < 0.010 ng/mL (0.00-0.029) 06/07/17 18:11 NT-Pro-B Natriuret Pep 451.3 pg/mL (0-900) 06/07/17 16:02
[2017-06-07] MEDS ORDERED: PEPCID PO SCH (22:00)
[2017-06-08 02:36] LABS: Basophils # (Auto) 0.1 K/mm3 (0.0-0.1); Basophils % (Auto) 1.3 % (0.0-1.8); Eosinophils # (Auto) 0.1 K/mm3 (0.0-0.4); Eosinophils % (Auto) 2.9 % (0.0-4.3); Hematocrit 28.5 % (35.5-45.6); Hemoglobin 9.7 gm/dl (11.8-15.2); Lymphocytes # (Auto) 1.5 K/mm3 (1.2-5.4); Lymphocytes % (Auto) 32.6 % (13.4-35.0); Mean Corpuscular HGB Conc 34 % (32-34); Mean Corpuscular Hemoglobin 29 pg (28-32); Mean Corpuscular Volume 86 fl (84-94); Monocytes # (Auto) 0.3 K/mm3 (0.0-0.8); Monocytes % (Auto) 7.5 % (0.0-7.3); Platelet Count 258 K/mm3 (140-440); Red Blood Count 3.31 M/mm3 (3.65-5.03); Red Cell Distribution Width 13.1 % (13.2-15.2)
[2017-06-08 02:57] LABS: Albumin 3.7 g/dL (3.9-5); Calcium 8.5 mg/dL (8.4-10.2)
[2017-06-08] MEDS ORDERED: APRESOLINE IV PRN (06:58)
[2017-06-08] MEDS ORDERED: NACL 0.9% 1000 ML 1,000 ML IV SCH (07:00)
--- NOTE | 2017-06-08 07:54 | History and Physical Report ---
CHIEF COMPLAINT: Chest pain for 2 days. HISTORY OF PRESENT ILLNESS: The patient is a 71-year-old male who comes in for chest pain of 2 days' duration. Burning sensation in his left chest with radiation to the left arm. Also feels weak. Complains of sore throat and body pains. No exacerbating or relieving factors. No diaphoresis. No palpitations. No syncope. No recent travel. PAST MEDICAL HISTORY: Significant for hypertension, gastroesophageal reflux disease. CURRENT MEDICATIONS: Valsartan 160 daily, nifedipine 60 mg once a day, famotidine 20 mg once a day, aspirin 81 mg once a day. PAST SURGICAL HISTORY: Right shoulder surgery. SOCIAL HISTORY: Does not smoke. FAMILY HISTORY: Hypertension. REVIEW OF SYSTEMS: Significant for chest pain and sore throat. Otherwise, review of systems is essentially negative. A 14-point review of systems done. PHYSICAL EXAMINATION: GENERAL: Elderly male, cooperative during examination. VITAL SIGNS: Blood pressure is 168/54, temperature is 98.8, pulse , sats are 98%. HEENT: Unremarkable. Pupils equal and reactive. NECK: Supple, no lymphadenopathy, no thyromegaly. LUNGS: Clear to auscultation and percussion. Good air entry. CARDIOVASCULAR: S1, S2 heard. No gallop, no murmur, no rub. Apical impulse in left fifth intercostal space and midclavicular line. ABDOMEN: Soft and benign. No hepatosplenomegaly. No guarding, no rigidity. Hernial orifices were normal. EXTREMITIES: Good pedal pulses. No pedal edema. CENTRAL NERVOUS SYSTEM: Alert and oriented x 4, nonfocal exam. LABORATORY DATA: Significant for white count of 2800, hemoglobin of 9.6 and hematocrit of 28.1, MCV MCHC are normal. Electrolytes are normal. BUN and creatinine is 20 and 1.6. Albumin is slightly low at 3.7. EKG shows normal sinus rhythm, sinus bradycardia, heart rate of 60 per minute. Chest x-ray: Cardiomegaly and pulmonary venous congestion. ASSESSMENT AND PLAN: 1. Acute coronary syndrome. Serial cardiac enzymes and stress test ordered. 2. Uncontrolled hypertension, had nifedipine and valsartan in the Emergency Room. 3. Gastroesophageal reflux disease. Famotidine to be continued. 4. Coronary artery disease. Continue aspirin. 5. Anemia. Anemia workup. Iron studies and folic acid ordered. 6. DVT prophylaxis, heparin. 7. Acute kidney injury, mild. IV fluids for now. 8. DVT prophylaxis, heparin. JOB# [id number] VSM/NTS
--- NOTE | 2017-06-08 08:28 | Progress Note ---
History Interval history: Patient seen and examined medical records reviewed Admitted with chest pain, scheduled for stress test Hospitalist Physical - Constitutional Vitals: Temp Pulse Resp BP Pulse Ox 98.7 F 55 L 18 171/56 100 06/08/17 03:09 06/08/17 07:17 06/08/17 03:09 06/08/17 07:17 06/08/17 05:48 Results - Labs CBC & Chem 7: 06/08/17 02:09 06/08/17 02:09 Labs: Laboratory Last Values WBC 4.5 K/mm3 (4.5-11.0) 06/08/17 02:09 RBC 3.31 M/mm3 (3.65-5.03) L 06/08/17 02:09 Hgb 9.7 gm/dl (11.8-15.2) L 06/08/17 02:09 Hct 28.5 % (35.5-45.6) L 06/08/17 02:09 MCV 86 fl (84-94) 06/08/17 02:09 MCH 29 pg (28-32) 06/08/17 02:09 MCHC 34 % (32-34) 06/08/17 02:09 RDW 13.1 % (13.2-15.2) L 06/08/17 02:09 Plt Count 258 K/mm3 (140-440) 06/08/17 02:09 Lymph % (Auto) 32.6 % (13.4-35.0) 06/08/17 02:09 [place] % (Auto) 7.5 % (0.0-7.3) H 06/08/17 02:09 Eos % (Auto) 2.9 % (0.0-4.3) 06/08/17 02:09 Baso % (Auto) 1.3 % (0.0-1.8) 06/08/17 02:09 Lymph # 1.5 K/mm3 (1.2-5.4) 06/08/17 02:09 [place] # 0.3 K/mm3 (0.0-0.8) 06/08/17 02:09 Eos # 0.1 K/mm3 (0.0-0.4) 06/08/17 02:09 Baso # 0.1 K/mm3 (0.0-0.1) 06/08/17 02:09 Seg Neutrophils % 55.7 % (40.0-70.0) 06/08/17 02:09 Seg Neutrophils # 2.5 K/mm3 (1.8-7.7) 06/08/17 02:09 Sodium 143 mmol/L (137-145) 06/08/17 02:09 Potassium 4.4 mmol/L (3.6-5.0) 06/08/17 02:09 Chloride 107.2 mmol/L (98-107) H 06/08/17 02:09 Carbon Dioxide 25 mmol/L (22-30) 06/08/17 02:09 Anion Gap 15 mmol/L 06/08/17 02:09 BUN 21 mg/dL (9-20) H 06/08/17 02:09 Creatinine 1.5 mg/dL (0.8-1.5) 06/08/17 02:09 Estimated GFR 56 ml/min 06/08/17 02:09 BUN/Creatinine Ratio 14 % 06/08/17 02:09 Glucose 147 mg/dL (75-100) H 06/08/17 02:09 Hemoglobin A1c 5.5 % (4-6) 06/07/17 12:19 Calcium 8.5 mg/dL (8.4-10.2) 06/08/17 02:09 Total Bilirubin 0.30 mg/dL (0.1-1.2) 06/08/17 02:09 AST 18 units/L (5-40) 06/08/17 02:09 ALT 8 units/L (7-56) 06/08/17 02:09 Alkaline Phosphatase 66 units/L (35-129) 06/08/17 02:09 Troponin T < 0.010 ng/mL (0.00-0.029) 06/08/17 01:57 NT-Pro-B Natriuret Pep 451.3 pg/mL (0-900) 06/07/17 16:02 Total Protein 6.4 g/dL (6.3-8.2) 06/08/17 02:09 Albumin 3.7 g/dL (3.9-5) L 06/08/17 02:09 Albumin/Globulin Ratio 1.4 % 06/08/17 02:09
[2017-06-08] MEDS ORDERED: BABY ASPIRIN PO SCH (10:00)
[2017-06-08] MEDS ORDERED: DIOVAN PO SCH (10:00)
[2017-06-08] MEDS: HEPARIN SUB-Q SCH ×2 (10:00)
[2017-06-08] MEDS ORDERED: PROCARDIA XL PO SCH (10:00)
[2017-06-08] MEDS: SODIUM CHLORIDE FLUSH SYRINGE 10 ML IV SCH ×2 (10:01)
[2017-06-08] MEDS: PEPCID PO SCH ×2 (11:16)
[2017-06-08] MEDS ORDERED: LEXISCAN IV ONE (11:45)
[2017-06-08 15:14] VITALS: BP 157/47
--- NOTE | 2017-06-08 16:38 | Discharge Summary ---
Providers - Providers Date of Admission: 06/07/17 20:23 Date of discharge: 06/08/17 Attending physician: MARIELENA BAKER 06/08/17 08:38 Physical Therapy Evaluation and Treat [CONS] Stat Comment: does not use assistive device Reason For Exam: unstable gait Weight bearing status?: Full wt bearing Assistive devices?: No Primary care physician: SURGERY NURSE Hospitalization Reason for admission: chest pain Condition: Fair Pertinent studies: cxr ;cardiomegaly with pulmonary venous congestion Hospital course: Discharge diagnosis; Atypical chest pain; negative stress test Chest pain due to GERD Hypertension Congenital limb deformity Very very pleasant 71-year-old male patient with the charge clots deformity of her limbs and hypertension was admitted through emergency room with generalized weakness and chest pain Patient was evaluated and admitted to the hospital symptomatically managed Patient underwent stress test which was negative for reversible ischemia Patient had normal ejection fraction last year with normal BNP Chest x-ray show mild congestion, patient did not have any shortness of breath and not in respiratory distress Patient was symptomatically managed Blood pressures closely monitored medications optimized Today's comfortable in bed no new complaints Vital signs stable [id number] evaluation and physical examination done by me did not show any new changes Hemodynamically and clinically stable for discharge Case management consulted for home health and she'll be set up at discharge Patient is hemodynamically and clinically stable at discharge Disposition: [id number] HOME UNDER HOME [facility] Time spent for discharge: 31 min Core Measure Documentation - Palliative Care Palliative Care/ Comfort Measures: Not Applicable - Core Measures Any of the following diagnoses?: none Exam - Constitutional Vitals: Temp Pulse Resp BP Pulse Ox 98.0 F 66 20 157/47 100 06/08/17 14:44 06/08/17 14:46 06/08/17 14:44 06/08/17 14:46 06/08/17 14:46 General appearance: Present: no acute distress, well-nourished - EENT Eyes: Present: PERRL, EOM intact - Neck Neck: Present: supple, normal ROM - Respiratory Respiratory effort: normal Respiratory: bilateral: diminished, negative: rales, rhonchi, wheezing - Cardiovascular Rhythm: regular Heart Sounds: Present: S1 & S2 - Extremities Extremities: no ischemia, No edema - Abdominal General gastrointestinal: Present: soft, non-tender, non-distended, normal bowel sounds - Integumentary Integumentary: Present: clear, warm - Musculoskeletal Musculoskeletal: strength equal bilaterally - Psychiatric Psychiatric: appropriate mood/affect, cooperative - Neurologic Neurologic: CNII-XII intact, moves all extremities Plan Activity: advance as tolerated, fall precautions Diet: other (cardiac diet) Additional Instructions: Fall precautions. If you have chest pain or shortness of breath, contact M.D. or go to emergency room Follow up with: PRIMARY CARE, [Primary Care Provider] - 3-5 Days
--- NOTE | 2017-06-09 00:44 | Treadmill Report ---
INDICATION: Chest pain. FINDINGS: 1. This is a poor quality myocardial perfusion scan limited by significant motion artifact noted on both rest and stress images. Additionally, the patient had to keep his left arm by his side. He could not lift his left arm above the shoulder level. 2. There is no scintigraphic evidence of myocardial ischemia; however, the left ventricle is normal in size and systolic function, left ventricular ejection fraction is measured at 74%. There is normal wall motion and wall thickening on gated imaging. CONCLUSION: 1. Poor quality scan limited by motion artifact noted both on stress and rest imaging as well as attenuation from the patient's left arm staying on his side. 2. There is, however, no scintigraphic evidence of myocardial ischemia. 3. The left ventricle is normal in size and systolic function. 4. This is a low risk myocardial perfusion scan associated with a 1-year cardiovascular event rate of less than 1%. JOB# [id number] JUVENAL/HENRY
== END 2017-06-08 19:20 | disposition home health service (06) | DRG 392 ==
LOC: ED 11:45 → 4A 20:23 → 2B-ACE 21:46
PROVIDERS: ADMIT Internal Medicine; ATTEND Internal Medicine
DX: K21.9 Gastro-esophageal reflux disease without esophagitis (principal); N17.9 Acute kidney failure, unspecified; I10 Essential (primary) hypertension; E11.9 Type 2 diabetes mellitus without complications; M19.90 Unspecified osteoarthritis, unspecified site; D64.9 Anemia, unspecified; I25.10 Atherosclerotic heart disease of native coronary artery without angina pectoris; Q74.9 Unspecified congenital malformation of limb(s); Z82.49 Family history of ischemic heart disease and other diseases of the circulatory system; Z86.73 Personal history of transient ischemic attack (TIA), and cerebral infarction without residual deficits; Z79.82 Long term (current) use of aspirin; Z79.899 Other long term (current) drug therapy
CPT/HCPCS: 36415; 71045; 78452; 80048; 80053; 83036; 83880; 84484; 85025; 93005; 93010; 93017; 96374; A9502; J0360; J1644; J2785

== ENCOUNTER 2017-08-27 12:23 | Emergency (ER) | payer MEDICARE ==
[2017-08-27 12:45] VITALS: BP 153/94
--- NOTE | 2017-08-27 16:15 | Emergency Department Report ---
ED Fall HPI - General Chief Complaint: Fall Stated Complaint: FALL/BACK PAIN Time Seen by Provider: 08/27/17 15:43 Source: patient Mode of arrival: Wheelchair - History of Present Illness Initial Comments: This is a 71-year-old -[place] male who presents with a bilateral rib pain and bilateral ankle pain from a fall 2 days ago. Patient reports he was at home walking from his bed to the kitchen and feel near table in the living room. Patient reports falling forward on his stomach and knees. He has a history of polio, arthritis, type 2 diabetes, and hypertension. He has experienced multiple falls in the past but this does not feel like the others. He is having difficulty eating and walking. There is some pedal edema to bilateral ankles. Patient states when he eat it feel like something is pushing against ribs and stomach. The pain is 6/10 on pain scale and worse with palpation and deep breathing. Denies LOC, shortness of breath, bruising, and numbness or tingling. MD Complaint: fall -: days(s) (2 days ago) Fall From: standing When Fall Occurred: # days [employer] (2 days) Fall Witnessed: no Place Fall Occurred: home Loss of Consciousness: none Prolonged Down Time?: no Symptoms Prior to Fall: none Location: chest (bilateral rib pain), back (low back pain) Location - Extremities: Left: Ankle, Right: Ankle Severity: moderate Severity scale (0 -10): 6 Quality: aching Context: tripped/slipped Associated Symptoms: denies - Related Data Home Medications Medication Instructions Recorded Confirmed Last Taken Multivit-Min/FA/Lycopen/Lutein 1 tab PO DAILY 07/08/16 06/07/17 06/07/17 [Centrum Silver Tablet] Previous Rx's Medication Instructions Recorded Last Taken Type Aspirin 81 mg PO DAILY #30 tab.chew 07/12/16 06/07/17 Rx Famotidine [Pepcid] 20 mg PO QDAY #30 tablet 10/03/16 06/07/17 Rx NIFEdipine XL [Procardia Xl] 60 mg PO QDAY #30 tablet 03/28/17 06/07/17 Rx Valsartan [Diovan] 160 mg PO DAILY #30 tablet 03/28/17 06/07/17 Rx Ibuprofen [Motrin 800 MG tab] 800 mg PO Q8HR PRN #20 tablet 08/27/17 Unknown Rx Allergies Allergy/AdvReac Type Severity Reaction Status Date / Time No Known Allergies Allergy Verified 06/07/17 12:00 ED Review of Systems ROS: Stated complaint: FALL/BACK PAIN Other details as noted in HPI Constitutional: denies: chills, fever Respiratory: denies: cough, shortness of breath, wheezing Cardiovascular: denies: chest pain, palpitations Gastrointestinal: denies: abdominal pain, nausea, diarrhea Musculoskeletal: back pain (low back pain), joint swelling (bilateral ankles), arthralgia (bilateral ankles) Skin: denies: rash, lesions, change in color Neurological: denies: headache, weakness, numbness, paresthesias Psychiatric: denies: anxiety, depression ED Past Medical Hx - Past Medical History Hx Hypertension: Yes Hx CVA: Yes (Left side deficit) Hx Congestive Heart Failure: No Hx Diabetes: Yes Hx Deep Vein Thrombosis: No Hx Arthritis: Yes Hx Seizures: Yes (last time 30 yrs ago) Hx Asthma: No Hx COPD: No Additional medical 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 - Surgical History Hx Pacemaker: No Hx Internal Defibrillator: No Additional Surgical History: Right shoulder surgery - Social History Smoking Status: Former Smoker Substance Use Type: None - Medications Home Medications: Home Medications Medication Instructions Recorded Confirmed Last Taken Type Multivit-Min/FA/Lycopen/Lutein 1 tab PO DAILY 07/08/16 06/07/17 06/07/17 History [Centrum Silver Tablet] Aspirin 81 mg PO DAILY #30 tab.chew 07/12/16 06/07/17 06/07/17 Rx Famotidine [Pepcid] 20 mg PO QDAY #30 tablet 10/03/16 06/07/17 06/07/17 Rx NIFEdipine XL [Procardia Xl] 60 mg PO QDAY #30 tablet 03/28/17 06/07/17 Rx Valsartan [Diovan] 160 mg PO DAILY #30 tablet 03/28/17 06/07/17 06/07/17 Rx Ibuprofen [Motrin 800 MG tab] 800 mg PO Q8HR PRN #20 tablet 08/27/17 Unknown Rx ED Physical Exam - General Limitations: No Limitations General appearance: alert, in no apparent distress - Respiratory Respiratory exam: Present: normal lung sounds bilaterally, chest wall tenderness (tenderness on palpation of bilateral ribs at 7 through 9). Absent: respiratory distress, accessory muscle use - Cardiovascular Cardiovascular Exam: Present: regular rate, normal rhythm, normal heart sounds. Absent: systolic murmur, diastolic murmur, rubs, gallop - GI/Abdominal GI/Abdominal exam: Present: soft, normal bowel sounds - Extremities Exam Extremities exam: Present: normal capillary refill, pedal edema (bilateral edema around lateral malleolus). Absent: calf tenderness - Back Exam Back exam: Present: normal inspection, paraspinal tenderness (bilaterally). Absent: CVA tenderness (R), CVA tenderness (L), rash noted - Neurological Exam Neurological exam: Present: alert, oriented X3 - Psychiatric Psychiatric exam: Present: normal affect, normal mood - Skin Skin exam: Present: warm, dry, intact, normal color. Absent: rash ED Course Vital Signs 08/27/17 12:42 Temperature 98.2 F Pulse Rate 61 Respiratory 20 Rate Blood Pressure 153/94 O2 Sat by Pulse 100 Oximetry ED Medical Decision Making - Radiology Data Radiology results: report reviewed EXAM: XR SPINE LUMBOSACRAL 2-3V HISTORY: low back pain s/p fall TECHNIQUE: Three views lumbosacral spine Comparison: None FINDINGS: Normal bony mineralization. Mild levoscoliosis lumbosacral spine. Marked bowel gas and stool somewhat obscure the details on the AP projection. Mild multilevel degenerative osteophytic change. Preserved vertebral body heights and disc space heights. No spondylolisthesis. Bones are mildly sclerotic. No definite coarsening to suggest Paget's. Sacral arches and SI joints are grossly unremarkable. IMPRESSION: No definite compression fracture. Mild levoscoliosis. EXAM: XR ANKLE BILAT 2V HISTORY: bilateral ankle pain and swelling s/p fall TECHNIQUE: Two views of each ankle were performed Comparison: None FINDINGS: Normal bony mineralization. On the right: 7 millimeter peripherally corticated density projects at the inferior right medial malleolar tip. There is a small bone chip adjacent to the lateral malleolar tip. There is tibiotalar spurring on the lateral projection. There is diffuse soft tissue swelling, predominant laterally. On the left: Diffuse soft tissue swelling predominant laterally. Mortise is preserved. There is tibiotalar degenerative arthritis. IMPRESSION: Degenerative arthritis bilateral ankles right greater than left. Diffuse soft tissue swelling, predominant laterally bilaterally. Bone chips adjacent to the inferior aspect right medial and lateral malleolar tips appear to be chronic. Right AP image is not well positioned for assessment of the tibiotalar joint. No definite acute fracture or dislocation. EXAM: XR RIBS BILAT 3V HISTORY: bilater rib pain s/p fall TECHNIQUE: AP chest x-ray and two views of the bilateral ribs were performed Comparison: Chest x-ray 03/27/2017 FINDINGS: Normal heart size. Lungs are clear and well expanded without focal infiltrate or consolidation. There is mild blunting the right costophrenic sulcus laterally. There has been previous right shoulder surgery. No pneumothorax. No definite displaced rib fracture identified. No compression fracture of the imaged thoracic or lumbar spines. IMPRESSION: Minimal blunting right costophrenic sulcus laterally. No definite pneumothorax. No displaced rib fracture identified on this limited two view series. Previous right shoulder surgery - Medical Decision Making This is a 71 y.o. male presents with bilateral rib pain, bilateral or back, and pedal edema from a fall 2 days ago. Patient was examined by me. Vital signs normal. Patient is in no acute distress and nontoxic appearing. She patient has a history of type 2 diabetes, arthritis, and hyperlipidemia. History of frequent falls had polio as a child. Given tramadol 50 mg po once in ER. Obtained x-ray of L-spine, bilateral ankles, and bilateral ribs. No acute fractures. Start ibuprofen 800 mg po q6h prn for pain for muscle strain. Plan discussed with patient to discharge home. He agrees with ER plan. Patient discharged home in stable condition. Follow up with PCP in 2-3 days. Critical care attestation.: If time is entered above; I have spent that time in minutes in the direct care of this critically ill patient, excluding procedure time. ED Disposition Clinical Impression: Painful rib, Strain of muscle, fascia and tendon of lower back, initial encounter Low back pain Qualifiers: Chronicity: acute Back pain laterality: bilateral Sciatica presence: without sciatica Qualified Code(s): M54.5 - Low back pain Fall as cause of accidental injury at home as place of occurrence Qualifiers: Encounter type: initial encounter Qualified Code(s): W19.XXXA - Unspecified fall, initial encounter Disposition: TO HOME OR SELFCARE Is pt being admited?: No Does the pt Need Aspirin: No Condition: Stable Instructions: Muscle Strain (ED), Arthralgia (ED), Ankle Exercises (GEN) Additional Instructions: Rest Use ice or heat on affected area for 20 minutes and off for 2 hours. Take pain medication as needed for pain. Follow up with Primary Care Provider in 2-3 days. Prescriptions: Ibuprofen [Motrin 800 MG tab] 800 mg PO Q8HR PRN #20 tablet PRN Reason: pain Referrals: [facility] [Outside] - 3-5 Days [facility] [Outside] - 3-5 Days [facility] [Outside] - 3-5 Days Time of Disposition: 19:03 Print Language: LITHUANIAN
--- NOTE | 2017-08-27 18:11 | XRay Report ---
FINAL REPORT EXAM: XR SPINE LUMBOSACRAL 2-3V HISTORY: low back pain s/p fall TECHNIQUE: Three views lumbosacral spine Comparison: None FINDINGS: Normal bony mineralization. Mild levoscoliosis lumbosacral spine. Marked bowel gas and stool somewhat obscure the details on the AP projection. Mild multilevel degenerative osteophytic change. Preserved vertebral body heights and disc space heights. No spondylolisthesis. Bones are mildly sclerotic. No definite coarsening to suggest Paget's. Sacral arches and SI joints are grossly unremarkable. IMPRESSION: No definite compression fracture. Mild levoscoliosis.
[2017-08-27] MEDS ORDERED: ULTRAM PO ONE (18:32)
--- NOTE | 2017-08-27 18:37 | XRay Report ---
FINAL REPORT EXAM: XR ANKLE BILAT 2V HISTORY: bilateral ankle pain and swelling s/p fall TECHNIQUE: Two views of each ankle were performed Comparison: None FINDINGS: Normal bony mineralization. On the right: 7 millimeter peripherally corticated density projects at the inferior right medial malleolar tip. There is a small bone chip adjacent to the lateral malleolar tip. There is tibiotalar spurring on the lateral projection. There is diffuse soft tissue swelling, predominant laterally. On the left: Diffuse soft tissue swelling predominant laterally. Mortise is preserved. There is tibiotalar degenerative arthritis. IMPRESSION: Degenerative arthritis bilateral ankles right greater than left. Diffuse soft tissue swelling, predominant laterally bilaterally. Bone chips adjacent to the inferior aspect right medial and lateral malleolar tips appear to be chronic. Right AP image is not well positioned for assessment of the tibiotalar joint. No definite acute fracture or dislocation.
--- NOTE | 2017-08-27 18:42 | XRay Report ---
FINAL REPORT EXAM: XR RIBS BILAT 3V HISTORY: bilater rib pain s/p fall TECHNIQUE: AP chest x-ray and two views of the bilateral ribs were performed Comparison: Chest x-ray 03/27/2017 FINDINGS: Normal heart size. Lungs are clear and well expanded without focal infiltrate or consolidation. There is mild blunting the right costophrenic sulcus laterally. There has been previous right shoulder surgery. No pneumothorax. No definite displaced rib fracture identified. No compression fracture of the imaged thoracic or lumbar spines. IMPRESSION: Minimal blunting right costophrenic sulcus laterally. No definite pneumothorax. No displaced rib fracture identified on this limited two view series. Previous right shoulder surgery
== END 2017-08-27 19:07 | disposition home or self-care (01) ==
LOC: ED 12:23
DX: S39.012A Strain of muscle, fascia and tendon of lower back, initial encounter (principal); W01.198A Fall on same level from slipping, tripping and stumbling with subsequent striking against other object, initial encounter; Y93.89 Activity, other specified; Y92.89 Other specified places as the place of occurrence of the external cause; Y99.8 Other external cause status; Z79.82 Long term (current) use of aspirin; I10 Essential (primary) hypertension; E11.9 Type 2 diabetes mellitus without complications; Z87.891 Personal history of nicotine dependence
CPT/HCPCS: 71110; 72100; 93005; 93010; 99283

== ENCOUNTER 2017-10-31 09:29 | Emergency (ER) | payer MEDICARE ==
[2017-10-31] MEDS ORDERED: TORADOL IM ONE (11:59)
[2017-10-31] MEDS ORDERED: NORCO 5/325 PO ONE (11:59)
--- NOTE | 2017-10-31 12:03 | Emergency Department Report ---
Blank Doc - Documentation Documentation: 61-year-old male with a past medical history of diabetes, hypertension, seizures , CVA with left-sided deficit, and bilateral arm atrophy with limited range of motion secondary to polio presents to the Hospital complains of right upper chest pain radiating to neck 2 weeks. Pain is sharp, worse with movement and palpation. Patient also stating he's having new bilateral lower ankle and distal leg edema and denies previous history of edema. Shortness of breath also reported. He chronically sleeps in a chair for the last 8 months because he does not have a bed. Apply with all his medication include his BP medication. EKG shows LVH with lateral T-wave inversions which is unchanged compared to Review of medical record also reveals that patient had a negative stress test on 06/08/2017 with the EF of 74% Exam Reproducible right upper chest wall tenderness extended to sternocleidomastoid Lungs clear to auscultation bradycardic heart rate, regular rhythm, systolic murmur Bilateral pitting ankle edema extending to distal leg. No calf tenderness Labs ordered including CMP, UA, cardiac enzymes although pain appears to be right-sided and reproducible Chest x-ray ordered Pain meds provided Mid-level to follow
[2017-10-31 12:34] LABS: Bilirubin,Urine NEG (Negative); Blood,Urine SM (Negative); Color,Urine Straw (Yellow); Urobilinogen,Urine < 2.0 mg/dL (<2.0); WBC,Urine < 1.0 /HPF (0.0-6.0)
[2017-10-31 12:59] LABS: Eosinophils # (Auto) 0.2 K/mm3 (0.0-0.4); Eosinophils % (Auto) 3.9 % (0.0-4.3); Hematocrit 30.8 % (35.5-45.6); Hemoglobin 10.3 gm/dl (11.8-15.2); Lymphocytes # (Auto) 1.6 K/mm3 (1.2-5.4); Mean Corpuscular HGB Conc 33 % (32-34); Mean Corpuscular Hemoglobin 30 pg (28-32); Mean Corpuscular Volume 89 fl (84-94); Monocytes # (Auto) 0.3 K/mm3 (0.0-0.8); Platelet Count 300 K/mm3 (140-440); Red Blood Count 3.45 M/mm3 (3.65-5.03)
[2017-10-31 13:08] LABS: INR 1.06 (0.87-1.13)
[2017-10-31 13:20] LABS: Creatine Kinase MB 3.4 ng/mL (0.0-4.0)
[2017-10-31 13:24] LABS: Alanine Aminotransferase 18 units/L (7-56); Albumin 4.1 g/dL (3.9-5); BUN/Creatinine Ratio 16; Blood Urea Nitrogen 28 mg/dL (9-20); Calcium 9.1 mg/dL (8.4-10.2); Hemolysis Index 7
--- NOTE | 2017-10-31 14:30 | XRay Report ---
FINAL REPORT EXAM: XR CHEST ROUTINE 2V HISTORY: sob, right upper chest and neck pain TECHNIQUE: Frontal and lateral chest x-ray. PRIORS: 26 March 2017. FINDINGS: Cardiac and mediastinal silhouette within normal limits. Lungs are normally expanded, without significant vascular congestion. No focal consolidation, pleural effusion or apparent pneumothorax. Bony thorax without acute abnormality. IMPRESSION: 1. No acute findings.
--- NOTE | 2017-10-31 15:44 | Emergency Department Report ---
ED Chest Pain HPI - General Chief Complaint: Chest Pain Stated Complaint: CHEST PAIN Time Seen by Provider: 10/31/17 11:38 Source: patient Mode of arrival: Ambulatory Limitations: No Limitations - History of Present Illness Initial Comments: This is a 71-year-old male nontoxic, well nourished in appearance, no acute signs of distress presents to the ED with c/o of right upper chest pain x2 weeks. Patient stated that pain radiates to right side neck. Patient describes pain as aching/sharp intermittently and worsened with palpation and movement. Patient also has a c/o of bilateral feet and ankle swelling. Denies any upper respiratory symptoms. Patient denies any shortness of breathe, hemoptysis, fever, chills, nausea, vomiting, headache, stiff neck, numbness, tingling, abdominal pain. Patient denies pleuritic chest pain. Patient denies any recent travels or long car rides. Patient denies any recent surgeries or any sick contacts. Patient denies any drug allergies. PMH includes CVA, HTN, DM, seizures. MD Complaint: chest pain -: week(s) (2) Pain Location: right chest Pain Radiation: neck Severity: mild Quality: aching, sharp Consistency: intermittent Improves With: rest Worsens With: palpation re: denies: nausea, vomting, diaphoresis, dyspnea, sense of impending doom Other Symptoms: leg swelling. denies: cough, fever, syncope, rash, acid taste in mouth, palpitations, burping Aspirin use within the Past 7 Days: (0) No - Related Data On Oral Contraceptives: No Home Medications Medication Instructions Recorded Confirmed Last Taken Multivit-Min/FA/Lycopen/Lutein 1 tab PO DAILY 07/08/16 06/07/17 06/07/17 [Centrum Silver Tablet] Previous Rx's Medication Instructions Recorded Last Taken Type Aspirin 81 mg PO DAILY #30 tab.chew 07/12/16 06/07/17 Rx Famotidine [Pepcid] 20 mg PO QDAY #30 tablet 10/03/16 06/07/17 Rx NIFEdipine XL [Procardia Xl] 60 mg PO QDAY #30 tablet 03/28/17 06/07/17 Rx Valsartan [Diovan] 160 mg PO DAILY #30 tablet 03/28/17 06/07/17 Rx Ibuprofen [Motrin 800 MG tab] 800 mg PO Q8HR PRN #20 tablet 08/27/17 Unknown Rx Torsemide [Demadex] 10 mg PO QDAY #7 tablet 10/31/17 Unknown Rx Allergies Allergy/AdvReac Type Severity Reaction Status Date / Time No Known Allergies Allergy Verified 10/31/17 09:46 Heart Score - HEART Score History: Slightly suspicious EKG: Non-specific Age: > 65 Risk factors: > 3 risk factors or hx of atherosclerotic disease Troponin: < normal limit HEART Score: 5 ED Review of Systems ROS: Stated complaint: CHEST PAIN Other details as noted in HPI Constitutional: denies: chills, fever Eyes: denies: eye pain, eye discharge, vision change ENT: denies: ear pain, throat pain Respiratory: denies: cough, shortness of breath, wheezing Cardiovascular: chest pain. denies: palpitations Endocrine: no symptoms reported Gastrointestinal: denies: abdominal pain, nausea, vomiting, diarrhea Genitourinary: denies: urgency, dysuria Musculoskeletal: denies: back pain, joint swelling, arthralgia Skin: denies: rash, lesions Neurological: denies: headache, weakness, paresthesias Psychiatric: denies: anxiety, depression Hematological/Lymphatic: denies: easy bleeding, easy bruising ED Past Medical Hx - Past Medical History Hx Hypertension: Yes Hx CVA: Yes (Left side deficit) Hx Congestive Heart Failure: No Hx Diabetes: Yes Hx Deep Vein Thrombosis: No Hx Arthritis: Yes Hx Seizures: Yes Hx Asthma: No Hx COPD: No Additional medical 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 - Surgical History Hx Pacemaker: No Hx Internal Defibrillator: No Additional Surgical History: Right shoulder surgery - Social History Smoking Status: Never Smoker Substance Use Type: None - Medications Home Medications: Home Medications Medication Instructions Recorded Confirmed Last Taken Type Multivit-Min/FA/Lycopen/Lutein 1 tab PO DAILY 07/08/16 06/07/17 06/07/17 History [Centrum Silver Tablet] Aspirin 81 mg PO DAILY #30 tab.chew 07/12/16 06/07/17 06/07/17 Rx Famotidine [Pepcid] 20 mg PO QDAY #30 tablet 10/03/16 06/07/17 06/07/17 Rx NIFEdipine XL [Procardia Xl] 60 mg PO QDAY #30 tablet 03/28/17 06/07/17 Rx Valsartan [Diovan] 160 mg PO DAILY #30 tablet 03/28/17 06/07/17 06/07/17 Rx Ibuprofen [Motrin 800 MG tab] 800 mg PO Q8HR PRN #20 tablet 08/27/17 Unknown Rx Torsemide [Demadex] 10 mg PO QDAY #7 tablet 10/31/17 Unknown Rx ED Physical Exam - General Limitations: No Limitations General appearance: alert, in no apparent distress - Head Head exam: Present: atraumatic, normocephalic - Eye Eye exam: Present: normal appearance Pupils: Present: normal accommodation - ENT ENT exam: Present: normal exam, mucous membranes moist - Neck Neck exam: Present: normal inspection, full ROM. Absent: tenderness, meningismus, lymphadenopathy - Respiratory Respiratory exam: Present: normal lung sounds bilaterally, chest wall tenderness (right side). Absent: respiratory distress, wheezes, rales, rhonchi , stridor, accessory muscle use, decreased breath sounds, prolonged expiratory - Cardiovascular Cardiovascular Exam: Present: regular rate, normal rhythm, normal heart sounds. Absent: irregular rhythm, systolic murmur, diastolic murmur, rubs, gallop - GI/Abdominal GI/Abdominal exam: Present: soft, normal bowel sounds. Absent: distended, tenderness, guarding, rebound, rigid, diminished bowel sounds - Rectal Rectal exam: Present: deferred - Extremities Exam Extremities exam: Present: normal inspection, full ROM, normal capillary refill , joint swelling. Absent: tenderness, calf tenderness - Expanded Lower Extremity Exam Right Hip exam: Present: normal inspection (bilateral exam), full ROM. Absent: tenderness, swelling Upper Leg exam: Present: normal inspection (bilateral exam), full ROM ( bilateral exam). Absent: tenderness, swelling Knee exam: Present: normal inspection (bilateral exam), full ROM (bilateral exam ). Absent: tenderness, swelling Lower Leg exam: Present: normal inspection (bilateral exam), full ROM ( bilateral exam). Absent: tenderness, swelling Ankle exam: Present: normal inspection (bilateral exam), full ROM (bilateral exam), swelling (bilateral exam). Absent: tenderness, abrasion, laceration, ecchymosis, deformity, crepidus, dislocation, erythema, anterior draw sign Foot/Toe exam: Present: normal inspection (bilateral exam), full ROM (bilateral exam), swelling (bilateral exam). Absent: tenderness, abrasion, laceration, ecchymosis, deformity, crepidus, dislocation, erythema, amputation, puncture wound, foreign body, calcaneal tenderness, tenderness at base of 5th metatarsal , nail avulsion, subungual hematoma Neuro vascular tendon exam: Present: no vascular compromise (bilateral exam). Absent: pulse deficit, abnormal cap refill, motor deficit, sensory deficit, tendon deficit, extremity cold to touch, pallor, abnormal 2-point discrimination , decreased fine/light touch, foot drop, peroneal nerve deficit, significant pain with passive ROM of distal joint Gait: Positive: observed and normal (bilateral exam) - Back Exam Back exam: Present: normal inspection, full ROM. Absent: tenderness, CVA tenderness (R), CVA tenderness (L), muscle spasm, paraspinal tenderness, vertebral tenderness, rash noted - Neurological Exam Neurological exam: Present: alert, oriented X3, normal gait - Psychiatric Psychiatric exam: Present: normal affect, normal mood - Skin Skin exam: Present: warm, dry, intact, normal color. Absent: rash ED Course Vital Signs 10/31/17 09:46 Temperature 98.3 F Pulse Rate 57 L Respiratory 20 Rate Blood Pressure 211/74 O2 Sat by Pulse 99 Oximetry - Reevaluation(s) Reevaluation #1: 10/31/17 15:54 Patient is speaking in full sentences with no signs of distress noted. - Consultations Consultation #1: 10/31/17 15:55 Patient has been consulted with Dr. Kuhn about patient history, physical exam, and labs/CXR/HEART score and examined and screened patient and stated to discharge with follow-up plan of care. HOMER score - Homer Score Age > 65: (1) Yes Aspirin use within the Past 7 Days: (1) Yes 3 or more CAD Risk Factors: (1) Yes 2 or more Angina events in past 24 hrs: (0) No Known CAD with more than 50% Stenosis: (0) No Elevated Cardiac Markers: (0) No ST Deviation Greater than 0.5mm: (0) No HOMER Score: 3 ED Medical Decision Making - Lab Data Result diagrams: 10/31/17 12:31 10/31/17 12:31 - Medical Decision Making This is a 71-year-old male that presents with chest pain and bilateral leg edema. Patient is stable and was examined by me and Dr. Kuhn. Wells criteria for DVT/SVT/PE 0 points. PT/INR normal. Patient discussed with Dr. Kuhn with HOMER and HEART score and due to the previous sme EKG, normal stress test this year, and ECHO done in 2017, patient to be discahrged with follow-up. Dr. Kuhn consulted with Dr. Yu. EKG performed and no significant changes from last visit. Chest xray dictated by the radiologist within normal limits. Patient is notified of the Xray report with no questions noted. Labs within normal limits. Negative troponin x2. Patient received Toradol in the ED which she stated his symptoms are improving subsided. As per Dr. Yu, patient to be discharged with Torsemide 10 mg. 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 At time of discharge , the patient does not seem toxic or ill in appearance. No acute signs of distress noted. Patient agrees to discharge treatment plan of care. No further questions noted by the patient. Critical care attestation.: If time is entered above; I have spent that time in minutes in the direct care of this critically ill patient, excluding procedure time. 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 Prescriptions: Torsemide [Demadex] 10 mg PO QDAY #7 tablet Referrals: CAMILLE ZAMORA MD [Primary Care Provider] - 3-5 Days KASEY ARANA MD [Staff Physician] - 3-5 Days JOSE ZAVALA MD [Staff Physician] - 3-[address] [facility] [place] [Outside] - 3-5 Days [facility] [Outside] - 3-5 Days
[2017-10-31 16:45] VITALS: BP 136/82
== END 2017-10-31 16:37 | disposition home or self-care (01) ==
LOC: ED 09:29
DX: R07.9 Chest pain, unspecified (principal); R22.43 Localized swelling, mass and lump, lower limb, bilateral; I10 Essential (primary) hypertension; E11.9 Type 2 diabetes mellitus without complications; M19.90 Unspecified osteoarthritis, unspecified site; Z86.73 Personal history of transient ischemic attack (TIA), and cerebral infarction without residual deficits; Z79.82 Long term (current) use of aspirin; Z79.899 Other long term (current) drug therapy
CPT/HCPCS: 36415; 71046; 80053; 81001; 82550; 82553; 83880; 84484; 85025; 85610; 93005; 93010; 96372; 99284; J1885

== ENCOUNTER 2018-08-14 07:36 | Inpatient (IN) | payer MEDICARE ==
[2018-08-14] MEDS ORDERED: BABY ASPIRIN PO ONE ×2 (08:49→15:26)
[2018-08-14] MEDS ORDERED: APRESOLINE ONE ×2 (08:57→12:41)
--- NOTE | 2018-08-14 09:23 | XRay Report ---
Single view of chest: History: Chest pain. Findings: Normal cardiomediastinal silhouette. Trachea is midline. No consolidation, pneumothorax or pleural effusion. Impression: No acute cardiopulmonary findings.
--- NOTE | 2018-08-14 09:23 | Emergency Department Report ---
ED General Adult HPI - General Chief complaint: Chest Pain Stated complaint: CHEST PAIN Time Seen by Provider: 08/14/18 08:12 Source: EMS Mode of arrival: Stretcher Limitations: Other - History of Present Illness Initial comments: Patient presents to the emergency department with a chief complaint of diffuse chest pain that started approximately 2 hours before arrival to the ED. Patient states that the chest pain does not radiate and describes the pain as dull in nature. -: Sudden Location: chest Radiation: non-radiation Severity scale (0 -10): 9 Quality: aching Consistency: constant Improves with: none Worsens with: none Associated Symptoms: denies other symptoms Treatments Prior to Arrival: none - Related Data Home Medications Medication Instructions Recorded Confirmed Last Taken No Known Home Medications [No 08/14/18 08/14/18 Unknown Reported Home Medications] Allergies Allergy/AdvReac Type Severity Reaction Status Date / Time No Known Allergies Allergy Verified 02/14/18 10:41 ED Review of Systems ROS: Stated complaint: CHEST PAIN Other details as noted in HPI Comment: All other systems reviewed and negative Constitutional: denies: chills, fever Eyes: denies: eye pain, eye discharge, vision change ENT: denies: ear pain, throat pain Respiratory: denies: cough, shortness of breath, wheezing Cardiovascular: chest pain. denies: palpitations Endocrine: no symptoms reported Gastrointestinal: denies: abdominal pain, nausea, diarrhea Genitourinary: denies: urgency, dysuria Musculoskeletal: denies: back pain, joint swelling, arthralgia Skin: denies: rash, lesions Neurological: denies: headache, weakness, paresthesias Psychiatric: denies: anxiety, depression Hematological/Lymphatic: denies: easy bleeding, easy bruising ED Past Medical Hx - Past Medical History Hx Hypertension: Yes Hx CVA: Yes (Left side deficit) Hx Congestive Heart Failure: No Hx Diabetes: Yes Hx Deep Vein Thrombosis: No Hx Arthritis: Yes Hx Seizures: Yes Hx Asthma: No Hx COPD: No Hx Tuberculosis: Yes Additional medical 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 - Surgical History Hx Pacemaker: No Hx Internal Defibrillator: No Additional Surgical History: Right shoulder surgery - Social History Smoking Status: Never Smoker Substance Use Type: None - Medications Home Medications: Home Medications Medication Instructions Recorded Confirmed Last Taken Type No Known Home Medications [No 08/14/18 08/14/18 Unknown History Reported Home Medications] ED Physical Exam - General Limitations: Other General appearance: alert, in no apparent distress - Head Head exam: Present: atraumatic, normocephalic - Eye Eye exam: Present: normal appearance, PERRL, EOMI - ENT ENT exam: Present: mucous membranes moist - Neck Neck exam: Present: normal inspection - Respiratory Respiratory exam: Present: normal lung sounds bilaterally. Absent: respiratory distress - Cardiovascular Cardiovascular Exam: Present: regular rate, normal rhythm. Absent: systolic murmur, diastolic murmur, rubs, gallop - GI/Abdominal GI/Abdominal exam: Present: soft, normal bowel sounds. Absent: distended, tenderness - Rectal Rectal exam: Present: deferred - Extremities Exam Extremities exam: Present: normal inspection - Back Exam Back exam: Present: normal inspection - Neurological Exam Neurological exam: Present: alert, oriented X3, CN II-XII intact. Absent: motor sensory deficit - Psychiatric Psychiatric exam: Present: normal affect, normal mood - Skin Skin exam: Present: warm, dry, intact, normal color. Absent: rash ED Course Vital Signs 08/14/18 08/14/18 08:07 08:44 Temperature 98.1 F 98.1 F Pulse Rate 58 L 59 L Respiratory 18 18 Rate Blood Pressure 210/88 Blood Pressure 219/89 [Right] O2 Sat by Pulse 97 Oximetry ED Medical Decision Making - Lab Data Result diagrams: 08/14/18 08:55 08/14/18 08:55 Lab Results 08/14/18 08/14/18 08/14/18 Range/Units 08:55 08:55 08:55 WBC 5.5 (4.5-11.0) K/mm3 RBC 3.53 L (3.65-5.03) M/mm3 Hgb 10.7 L (11.8-15.2) gm/dl Hct 32.1 L (35.5-45.6) % MCV 91 (84-94) fl MCH 30 (28-32) pg MCHC 34 (32-34) % RDW 14.6 (13.2-15.2) % Plt Count 287 (140-440) K/mm3 Lymph % (Auto) 19.7 (13.4-35.0) % [place] % (Auto) 5.0 (0.0-7.3) % Eos % (Auto) 2.4 (0.0-4.3) % Baso % (Auto) 1.1 (0.0-1.8) % Lymph # 1.1 L (1.2-5.4) K/mm3 [place] # 0.3 (0.0-0.8) K/mm3 Eos # 0.1 (0.0-0.4) K/mm3 Baso # 0.1 (0.0-0.1) K/mm3 Seg Neutrophils % 71.8 H (40.0-70.0) % Seg Neutrophils # 3.9 (1.8-7.7) K/mm3 PT 14.3 (12.2-14.9) Sec. INR 1.05 (0.87-1.13) APTT 28.4 (24.2-36.6) Sec. Sodium 141 (137-145) mmol/L Potassium 4.6 (3.6-5.0) mmol/L Chloride 109.2 H (98-107) mmol/L Carbon Dioxide 16 L (22-30) mmol/L Anion Gap 20 mmol/L BUN 41 H (9-20) mg/dL Creatinine 2.8 H (0.8-1.5) mg/dL Estimated GFR 27 ml/min BUN/Creatinine Ratio 15 % Glucose 75 (75-100) mg/dL Calcium 8.4 (8.4-10.2) mg/dL Total Bilirubin 0.20 (0.1-1.2) mg/dL AST 17 (5-40) units/L ALT 14 (7-56) units/L Alkaline Phosphatase 89 (35-129) units/L Troponin T < 0.010 (0.00-0.029) ng/mL Total Protein 7.1 (6.3-8.2) g/dL Albumin 3.5 L (3.9-5) g/dL Albumin/Globulin Ratio 1.0 % Lipase (13-60) units/L Urine Color (Yellow) Urine Turbidity (Clear) Urine pH (5.0-7.0) Ur Specific Center (1.003-1.030) Urine Protein (Negative) mg/dL Urine Glucose (UA) (Negative) mg/dL Urine Ketones (Negative) mg/dL Urine Blood (Negative) Urine Nitrite (Negative) Urine Bilirubin (Negative) Urine Urobilinogen (<2.0) mg/dL Ur Leukocyte Esterase (Negative) Urine WBC (Auto) (0.0-6.0) /HPF Urine RBC (Auto) (0.0-6.0) /HPF Urine Opiates Screen Urine Methadone Screen Ur Barbiturates Screen Ur Phencyclidine Scrn Ur Amphetamines Screen U Benzodiazepines Scrn Urine Cocaine Screen U Marijuana (THC) Screen Drugs of Abuse Note 08/14/18 08/14/18 08/14/18 Range/Units 08:55 12:22 Unknown WBC (4.5-11.0) K/mm3 RBC (3.65-5.03) M/mm3 Hgb (11.8-15.2) gm/dl Hct (35.5-45.6) % MCV (84-94) fl MCH (28-32) pg MCHC (32-34) % RDW (13.2-15.2) % Plt Count (140-440) K/mm3 Lymph % (Auto) (13.4-35.0) % [place] % (Auto) (0.0-7.3) % Eos % (Auto) (0.0-4.3) % Baso % (Auto) (0.0-1.8) % Lymph # (1.2-5.4) K/mm3 [place] # (0.0-0.8) K/mm3 Eos # (0.0-0.4) K/mm3 Baso # (0.0-0.1) K/mm3 Seg Neutrophils % (40.0-70.0) % Seg Neutrophils # (1.8-7.7) K/mm3 PT (12.2-14.9) Sec. INR (0.87-1.13) APTT (24.2-36.6) Sec. Sodium (137-145) mmol/L Potassium (3.6-5.0) mmol/L Chloride (98-107) mmol/L Carbon Dioxide (22-30) mmol/L Anion Gap mmol/L BUN (9-20) mg/dL Creatinine (0.8-1.5) mg/dL Estimated GFR ml/min BUN/Creatinine Ratio % Glucose (75-100) mg/dL Calcium (8.4-10.2) mg/dL Total Bilirubin (0.1-1.2) mg/dL AST (5-40) units/L ALT (7-56) units/L Alkaline Phosphatase (35-129) units/L Troponin T 0.012 (0.00-0.029) ng/mL Total Protein (6.3-8.2) g/dL Albumin (3.9-5) g/dL Albumin/Globulin Ratio % Lipase 40 (13-60) units/L Urine Color Straw (Yellow) Urine Turbidity Clear (Clear) Urine pH 5.0 (5.0-7.0) Ur Specific Center 1.010 (1.003-1.030) Urine Protein 100 mg/dl (Negative) mg/dL Urine Glucose (UA) Neg (Negative) mg/dL Urine Ketones Neg (Negative) mg/dL Urine Blood Sm (Negative) Urine Nitrite Neg (Negative) Urine Bilirubin Neg (Negative) Urine Urobilinogen < 2.0 (<2.0) mg/dL Ur Leukocyte Esterase Neg (Negative) Urine WBC (Auto) < 1.0 (0.0-6.0) /HPF Urine RBC (Auto) < 1.0 (0.0-6.0) /HPF Urine Opiates Screen Urine Methadone Screen Ur Barbiturates Screen Ur Phencyclidine Scrn Ur Amphetamines Screen U Benzodiazepines Scrn Urine Cocaine Screen U Marijuana (THC) Screen Drugs of Abuse Note 08/14/18 Range/Units Unknown WBC (4.5-11.0) K/mm3 RBC (3.65-5.03) M/mm3 Hgb (11.8-15.2) gm/dl Hct (35.5-45.6) % MCV (84-94) fl MCH (28-32) pg MCHC (32-34) % RDW (13.2-15.2) % Plt Count (140-440) K/mm3 Lymph % (Auto) (13.4-35.0) % [place] % (Auto) (0.0-7.3) % Eos % (Auto) (0.0-4.3) % Baso % (Auto) (0.0-1.8) % Lymph # (1.2-5.4) K/mm3 [place] # (0.0-0.8) K/mm3 Eos # (0.0-0.4) K/mm3 Baso # (0.0-0.1) K/mm3 Seg Neutrophils % (40.0-70.0) % Seg Neutrophils # (1.8-7.7) K/mm3 PT (12.2-14.9) Sec. INR (0.87-1.13) APTT (24.2-36.6) Sec. Sodium (137-145) mmol/L Potassium (3.6-5.0) mmol/L Chloride (98-107) mmol/L Carbon Dioxide (22-30) mmol/L Anion Gap mmol/L BUN (9-20) mg/dL Creatinine (0.8-1.5) mg/dL Estimated GFR ml/min BUN/Creatinine Ratio % Glucose (75-100) mg/dL Calcium (8.4-10.2) mg/dL Total Bilirubin (0.1-1.2) mg/dL AST (5-40) units/L ALT (7-56) units/L Alkaline Phosphatase (35-129) units/L Troponin T (0.00-0.029) ng/mL Total Protein (6.3-8.2) g/dL Albumin (3.9-5) g/dL Albumin/Globulin Ratio % Lipase (13-60) units/L Urine Color (Yellow) Urine Turbidity (Clear) Urine pH (5.0-7.0) Ur Specific Center (1.003-1.030) Urine Protein (Negative) mg/dL Urine Glucose (UA) (Negative) mg/dL Urine Ketones (Negative) mg/dL Urine Blood (Negative) Urine Nitrite (Negative) Urine Bilirubin (Negative) Urine Urobilinogen (<2.0) mg/dL Ur Leukocyte Esterase (Negative) Urine WBC (Auto) (0.0-6.0) /HPF Urine RBC (Auto) (0.0-6.0) /HPF Urine Opiates Screen Presumptive negative Urine Methadone Screen Presumptive negative Ur Barbiturates Screen Presumptive negative Ur Phencyclidine Scrn Presumptive negative Ur Amphetamines Screen Presumptive negative U Benzodiazepines Scrn Presumptive negative Urine Cocaine Screen Presumptive negative U Marijuana (THC) Screen Presumptive negative Drugs of Abuse Note Disclamer - EKG Data -: EKG Interpreted by Ut EKG shows normal: sinus rhythm Rate: bradycardia - EKG Data Interpretation: other (inverted T waves) - Radiology Data Radiology results: report reviewed - Medical Decision Making Discussed results with patient and plan of care Critical Care Time: Yes Critical care time in (mins) excluding proc time.: 35 Critical care attestation.: If time is entered above; I have spent that time in minutes in the direct care of this critically ill patient, excluding procedure time. ED Disposition Clinical Impression: Acute on chronic renal failure, Chest pain Disposition: OP ADMIT IP TO THIS HOSP Is pt being admited?: Yes Does the pt Need Aspirin: Yes Condition: Fair Instructions: Chest Pain (ED) Referrals: GI MONGE MD [Primary Care Provider] - 3-5 Days
[2018-08-14 09:44] LABS: Basophils # (Auto) 0.1 K/mm3 (0.0-0.1); Basophils % (Auto) 1.1 % (0.0-1.8); Eosinophils # (Auto) 0.1 K/mm3 (0.0-0.4); Eosinophils % (Auto) 2.4 % (0.0-4.3); Hematocrit 32.1 % (35.5-45.6); Hemoglobin 10.7 gm/dl (11.8-15.2); Lymphocytes # (Auto) 1.1 K/mm3 (1.2-5.4); Lymphocytes % (Auto) 19.7 % (13.4-35.0); Mean Corpuscular HGB Conc 34 % (32-34); Mean Corpuscular Volume 91 fl (84-94); Monocytes # (Auto) 0.3 K/mm3 (0.0-0.8); Platelet Count 287 K/mm3 (140-440); Red Blood Count 3.53 M/mm3 (3.65-5.03); Red Cell Distribution Width 14.6 % (13.2-15.2)
[2018-08-14 09:45] LABS: Alanine Aminotransferase 14 units/L (7-56); Albumin 3.5 g/dL (3.9-5); BUN/Creatinine Ratio 15; Blood Urea Nitrogen 41 mg/dL (9-20); Calcium 8.4 mg/dL (8.4-10.2); Hemolysis Index 7
[2018-08-14 10:15] LABS: INR 1.05 (0.87-1.13); Partial Thromboplastin Time 28.4 Sec. (24.2-36.6)
[2018-08-14 10:35] LABS: Bilirubin,Urine NEG (Negative); Blood,Urine SM (Negative); Color,Urine Straw (Yellow); RBC,Urine < 1.0 /HPF (0.0-6.0); Urobilinogen,Urine < 2.0 mg/dL (<2.0); WBC,Urine < 1.0 /HPF (0.0-6.0)
[2018-08-14 10:52] LABS: Amphetamine Screen,Urine PRESUMPTIVE NEGATIVE; Benzodiazepines Screen,Urine PRESUMPTIVE NEGATIVE; Cannabinoid Screen,Urine PRESUMPTIVE NEGATIVE; Cocaine Screen,Urine PRESUMPTIVE NEGATIVE; Methadone Screen,Urine PRESUMPTIVE NEGATIVE; Opiate Screen,Urine PRESUMPTIVE NEGATIVE
[2018-08-14] MEDS ORDERED: NACL 0.9% 1000 ML 1,000 ML IV ONE (14:31)
--- NOTE | 2018-08-14 15:48 | History and Physical Report ---
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 Patient is a very poor historian. Chest pain is left-sided and dull in character. 5 scale of 1-10. Intermittent in nature. No diaphoresis no palpitations. No radiation. No nausea or shortness of breath. No recent travel. Patient has no history of coronary artery disease. We'll Past Medical History Hypertension: Yes CVA: Yes (Left side deficit) Diabetes: Yes Arthritis: Yes Seizures: Yes Tuberculosis: Yes Additional medical history: Polio as child, Charcot jessica tooth disease. 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 Surgical History Right shoulder surgery Social History Smoking Status: Never Smoker Substance Use Type: None Family history Hypertension Medications Home Medications: Home Medications Medication Instructions Recorded Confirmed Last Taken Type No Known Home Medications [No 08/14/18 08/14/18 Unknown History Reported Home Medications] \ Review of Systems ROS: Stated complaint: CHEST PAIN Other details as noted in HPI Comment: All other systems reviewed and negative Constitutional: denies: chills, fever Eyes: denies: eye pain, eye discharge, vision change ENT: denies: ear pain, throat pain Respiratory: denies: cough, shortness of breath, wheezing Cardiovascular: chest pain. denies: palpitations Endocrine: no symptoms reported Gastrointestinal: denies: abdominal pain, nausea, diarrhea Genitourinary: denies: urgency, dysuria Musculoskeletal: denies: back pain, joint swelling, arthralgia Skin: denies: rash, lesions Neurological: denies: headache, weakness, paresthesias Psychiatric: denies: anxiety, depression Hematological/Lymphatic: denies: easy bleeding, easy bruising 14 point review of systems done Medications and Allergies Allergies Allergy/AdvReac Type Severity Reaction Status Date / Time No Known Allergies Allergy Verified 02/14/18 10:41 Home Medications Medication Instructions Recorded Confirmed Last Taken Type No Known Home Medications [No 08/14/18 08/14/18 Unknown History Reported Home Medications] Exam - Constitutional Vitals: Temp Pulse Resp BP Pulse Ox 98.1 F 59 L 18 219/89 97 08/14/18 08:44 08/14/18 08:44 08/14/18 08:44 08/14/18 08:44 08/14/18 08:07 General appearance: Present: no acute distress, well-nourished - EENT Eyes: Present: PERRL ENT: hearing intact, clear oral mucosa - Neck Neck: Present: supple, normal ROM - Respiratory Respiratory effort: normal Respiratory: bilateral: CTA - Cardiovascular Heart rate: 70 Rhythm: regular Heart Sounds: Present: S1 & S2. Absent: rub, click - Extremities Extremities: no ischemia, pulses symmetrical, No edema, abnormal (muscle wasting in both right and left upper extremities with contractures in both the hands) Peripheral Pulses: within normal limits - Abdominal General gastrointestinal: Present: soft, non-tender, non-distended, normal bowel sounds Male genitourinary: Present: normal - Rectal Rectal Exam: deferred - Integumentary Integumentary: Present: clear, warm, dry - Musculoskeletal Musculoskeletal: generalized weakness, other (power is 2/5 in both right upper extremity and left upper extremity, wasting of muscles present with contractures in both hands) - Psychiatric Psychiatric: appropriate mood/affect, intact judgment & insight, cooperative - Neurologic Neurologic: CNII-XII intact, moves all extremities (power is 2/5 power in both upper extremities, normal power in both lower extremities) - Allied Health Allied health notes reviewed: nursing, case management Results - Labs CBC & Chem 7: 08/14/18 08:55 08/14/18 08:55 Labs: Laboratory Last Values WBC 5.5 K/mm3 (4.5-11.0) 08/14/18 08:55 RBC 3.53 M/mm3 (3.65-5.03) L 08/14/18 08:55 Hgb 10.7 gm/dl (11.8-15.2) L 08/14/18 08:55 Hct 32.1 % (35.5-45.6) L 08/14/18 08:55 MCV 91 fl (84-94) 08/14/18 08:55 MCH 30 pg (28-32) 08/14/18 08:55 MCHC 34 % (32-34) 08/14/18 08:55 RDW 14.6 % (13.2-15.2) 08/14/18 08:55 Plt Count 287 K/mm3 (140-440) 08/14/18 08:55 Lymph % (Auto) 19.7 % (13.4-35.0) 08/14/18 08:55 [place] % (Auto) 5.0 % (0.0-7.3) 08/14/18 08:55 Eos % (Auto) 2.4 % (0.0-4.3) 08/14/18 08:55 Baso % (Auto) 1.1 % (0.0-1.8) 08/14/18 08:55 Lymph # 1.1 K/mm3 (1.2-5.4) L 08/14/18 08:55 [place] # 0.3 K/mm3 (0.0-0.8) 08/14/18 08:55 Eos # 0.1 K/mm3 (0.0-0.4) 08/14/18 08:55 Baso # 0.1 K/mm3 (0.0-0.1) 08/14/18 08:55 Seg Neutrophils % 71.8 % (40.0-70.0) H 08/14/18 08:55 Seg Neutrophils # 3.9 K/mm3 (1.8-7.7) 08/14/18 08:55 PT 14.3 Sec. (12.2-14.9) 08/14/18 08:55 INR 1.05 (0.87-1.13) 08/14/18 08:55 APTT 28.4 Sec. (24.2-36.6) 08/14/18 08:55 Sodium 141 mmol/L (137-145) 08/14/18 08:55 Potassium 4.6 mmol/L (3.6-5.0) 08/14/18 08:55 Chloride 109.2 mmol/L (98-107) H 08/14/18 08:55 Carbon Dioxide 16 mmol/L (22-30) L 08/14/18 08:55 20 mmol/L 08/14/18 08:55 BUN 41 mg/dL (9-20) H 08/14/18 08:55 2.8 mg/dL (0.8-1.5) H 08/14/18 08:55 Estimated GFR 27 ml/min 08/14/18 08:55 15 % 08/14/18 08:55 Glucose 75 mg/dL (75-100) 08/14/18 08:55 Calcium 8.4 mg/dL (8.4-10.2) 08/14/18 08:55 0.20 mg/dL (0.1-1.2) 08/14/18 08:55 AST 17 units/L (5-40) 08/14/18 08:55 ALT 14 units/L (7-56) 08/14/18 08:55 89 units/L (35-129) 08/14/18 08:55 0.012 ng/mL (0.00-0.029) 08/14/18 12:22 7.1 g/dL (6.3-8.2) 08/14/18 08:55 3.5 g/dL (3.9-5) L 08/14/18 08:55 1.0 % 08/14/18 08:55 40 units/L (13-60) 08/14/18 08:55 Straw (Yellow) 08/14/18 Unknown Clear (Clear) 08/14/18 Unknown 5.0 (5.0-7.0) 08/14/18 Unknown Ur Specific [place] 1.010 (1.003-1.030) 08/14/18 Unknown 100 mg/dl mg/dL (Negative) 08/14/18 Unknown Neg mg/dL (Negative) 08/14/18 Unknown Neg mg/dL (Negative) 08/14/18 Unknown Sm (Negative) 08/14/18 Unknown Neg (Negative) 08/14/18 Unknown Neg (Negative) 08/14/18 Unknown < 2.0 mg/dL (<2.0) 08/14/18 Unknown Ur Leukocyte Esterase Neg (Negative) 08/14/18 Unknown < 1.0 /HPF (0.0-6.0) 08/14/18 Unknown < 1.0 /HPF (0.0-6.0) 08/14/18 Unknown Presumptive negative 08/14/18 Unknown Presumptive negative 08/14/18 Unknown Ur Barbiturates Screen Presumptive negative 08/14/18 Unknown Ur Phencyclidine Scrn Presumptive negative 08/14/18 Unknown Ur Amphetamines Screen Presumptive negative 08/14/18 Unknown U Benzodiazepines Scrn Presumptive negative 08/14/18 Unknown Presumptive negative 08/14/18 Unknown U Marijuana (THC) Screen Presumptive negative 08/14/18 Unknown Disclamer 08/14/18 Unknown Short CBC 08/14/18 Range/Units 08:55 WBC 5.5 (4.5-11.0) K/mm3 Hgb 10.7 L (11.8-15.2) gm/dl Hct 32.1 L (35.5-45.6) % Plt Count 287 (140-440) K/mm3 BMP 08/14/18 08:55 Sodium 141 Potassium 4.6 Chloride 109.2 H Carbon Dioxide 16 L BUN 41 H Creatinine 2.8 H Glucose 75 Calcium 8.4 Cardiac Enzymes 08/14/18 08/14/18 Range/Units 08:55 12:22 Troponin T < 0.010 0.012 (0.00-0.029) ng/mL Liver Function 08/14/18 Range/Units 08:55 Total Bilirubin 0.20 (0.1-1.2) mg/dL AST 17 (5-40) units/L ALT 14 (7-56) units/L Alkaline Phosphatase 89 (35-129) units/L Albumin 3.5 L (3.9-5) g/dL Urine 08/14/18 Range/Units Unknown Urine Color Straw (Yellow) Urine pH 5.0 (5.0-7.0) Ur Specific [place] 1.010 (1.003-1.030) Urine Protein 100 mg/dl (Negative) mg/dL Urine Glucose (UA) Neg (Negative) mg/dL - Imaging and Cardiology EKG: report reviewed (sinus rhythm heart rate of 65 murmur at LVH with secondary repolarization abnormalities. No acute ST-T wave changes) Chest x-ray: report reviewed (no acute findings) Assessment and Plan Advance Directives: Yes (full code) VTE prophylaxis?: Chemical Plan of care discussed with patient/family: Yes - Patient Problems (1) Hypertensive emergency Current Visit: Yes Status: Acute Plan to address problem: Patient initiated on losartan and Coreg and amlodipine IV hydralazine 10 mg every 3 hours when necessary (2) Chest pain Current Visit: Yes Status: Acute Qualifiers: Chest pain type: unspecified Qualified Code(s): R07.9 - Chest pain, unspecified Plan to address problem: Chest pain protocol Serial troponins Lexiscan in the morning Costochondritis in the differential diagnosis--no chest wall tenderness GERD in the differential diagnosis (3) Charcot Jessica Tooth muscular atrophy Current Visit: Yes Status: Chronic Plan to address problem: Patient has atrophy of both upper extremities with weakness and contractures of the hands (4) Acute kidney injury Current Visit: Yes Status: Acute Plan to address problem: Acute kidney injury IV fluids for now Problem underlying CKD We'll get nephrology consult (5) Anemia Current Visit: Yes Status: Chronic Qualifiers: Anemia type: due to chronic kidney disease Plan to address problem: Probably secondary to chronic kidney disease Will get iron folic acid and B12 levels (6) DVT prophylaxis Current Visit: Yes Status: Acute Plan to address problem: On Lovenox and GI prophylaxis
[2018-08-14] MEDS ORDERED: TYLENOL PO PRN (16:03)
[2018-08-14] MEDS ORDERED: SODIUM CHLORIDE FLUSH SYRINGE 10 ML IV PRN (16:03)
[2018-08-14] MEDS ORDERED: IBUPROFEN PO PRN (16:03)
[2018-08-14] MEDS ORDERED: ZOFRAN IV PRN (16:03)
[2018-08-14] MEDS ORDERED: LOVENOX SUB-Q SCH (17:00)
[2018-08-14] MEDS ORDERED: NACL 0.9% 1000 ML 1,000 ML IV SCH ×2 (17:00)
[2018-08-14] MEDS ORDERED: COZAAR ONE (17:43)
[2018-08-14] MEDS: COZAAR PO SCH (17:45)
[2018-08-14] MEDS: LOVENOX SUB-Q SCH (18:45)
[2018-08-14 21:00] LABS: % Iron Saturation 31.43 %
[2018-08-14] MEDS: PEPCID IV SCH (22:18)
[2018-08-14] MEDS: SODIUM CHLORIDE FLUSH SYRINGE 10 ML IV SCH (22:18)
[2018-08-14] MEDS: COREG PO SCH (22:18)
[2018-08-15 06:07] LABS: Basophils % (Auto) 1.2 % (0.0-1.8); Eosinophils # (Auto) 0.1 K/mm3 (0.0-0.4); Hematocrit 30.1 % (35.5-45.6); Hemoglobin 10.1 gm/dl (11.8-15.2); Lymphocytes # (Auto) 1.1 K/mm3 (1.2-5.4); Mean Corpuscular HGB Conc 34 % (32-34); Mean Corpuscular Volume 90 fl (84-94); Monocytes # (Auto) 0.3 K/mm3 (0.0-0.8); Monocytes % (Auto) 8.4 % (0.0-7.3); Platelet Count 258 K/mm3 (140-440); Red Blood Count 3.36 M/mm3 (3.65-5.03); Red Cell Distribution Width 14.7 % (13.2-15.2)
[2018-08-15 06:33] LABS: Calcium 8.5 mg/dL (8.4-10.2)
[2018-08-15] MEDS: COZAAR PO SCH (09:31)
[2018-08-15] MEDS: COREG PO SCH (09:31)
[2018-08-15] MEDS: SODIUM CHLORIDE FLUSH SYRINGE 10 ML IV SCH ×2 (09:31→23:07)
[2018-08-15] MEDS: LOVENOX SUB-Q SCH (09:31)
[2018-08-15] MEDS: PEPCID IV SCH (09:31)
--- NOTE | 2018-08-15 10:00 | Progress Note ---
Assessment and Plan Assessment and plan: Chest pain admitted to Tele cardiology consulted hypertensive emergency Diabetes mellitus type 2. accucheck qaac and hs Bradycardia KEMAL nephrology consulted Seizure disorder Hypernatremia Monitor Charcot Jessica Tooth disease Full code status History Interval history: Chest pain Hospitalist Physical - Physical exam Narrative exam: Gen: Not in acute distress, lying in bed, obese HEENT: Normocephalic, atraumatic Neck: supple, no JVD Heart: S1 and S2 reg, no murmurs, rubs or gallop Lungs: Clear, no crackles, no wheeze Abd: soft, non tender, non distended, normal BS Ext: No edema, no clubbing, no cyanosis, Neuro: Awake,alert, oriented x 3, moves all ext - Constitutional Vitals: Temp Pulse Resp BP Pulse Ox 98.8 F 56 L 20 200/64 98 08/15/18 05:09 08/15/18 09:14 08/15/18 05:09 08/15/18 09:14 08/15/18 09:14 General appearance: Present: no acute distress, well-nourished Results - Labs CBC & Chem 7: 08/15/18 05:38 08/15/18 05:38 Labs: Laboratory Last Values WBC 3.5 K/mm3 (4.5-11.0) L 08/15/18 05:38 RBC 3.36 M/mm3 (3.65-5.03) L 08/15/18 05:38 Hgb 10.1 gm/dl (11.8-15.2) L 08/15/18 05:38 Hct 30.1 % (35.5-45.6) L 08/15/18 05:38 MCV 90 fl (84-94) 08/15/18 05:38 MCH 30 pg (28-32) 08/15/18 05:38 MCHC 34 % (32-34) 08/15/18 05:38 RDW 14.7 % (13.2-15.2) 08/15/18 05:38 Plt Count 258 K/mm3 (140-440) 08/15/18 05:38 Lymph % (Auto) 30.0 % (13.4-35.0) 08/15/18 05:38 [place] % (Auto) 8.4 % (0.0-7.3) H 08/15/18 05:38 Eos % (Auto) 3.0 % (0.0-4.3) 08/15/18 05:38 Baso % (Auto) 1.2 % (0.0-1.8) 08/15/18 05:38 Lymph # 1.1 K/mm3 (1.2-5.4) L 08/15/18 05:38 [place] # 0.3 K/mm3 (0.0-0.8) 08/15/18 05:38 Eos # 0.1 K/mm3 (0.0-0.4) 08/15/18 05:38 Baso # 0.0 K/mm3 (0.0-0.1) 08/15/18 05:38 Seg Neutrophils % 57.4 % (40.0-70.0) 08/15/18 05:38 Seg Neutrophils # 2.0 K/mm3 (1.8-7.7) 08/15/18 05:38 PT 14.3 Sec. (12.2-14.9) 08/14/18 08:55 INR 1.05 (0.87-1.13) 08/14/18 08:55 APTT 28.4 Sec. (24.2-36.6) 08/14/18 08:55 Sodium 146 mmol/L (137-145) H 08/15/18 05:38 Potassium 4.5 mmol/L (3.6-5.0) 08/15/18 05:38 Chloride 117.2 mmol/L (98-107) H 08/15/18 05:38 Carbon Dioxide 17 mmol/L (22-30) L 08/15/18 05:38 16 mmol/L 08/15/18 05:38 BUN 44 mg/dL (9-20) H 08/15/18 05:38 2.7 mg/dL (0.8-1.5) H 08/15/18 05:38 Estimated GFR 28 ml/min 08/15/18 05:38 16 % 08/15/18 05:38 Glucose 91 mg/dL (75-100) 08/15/18 05:38 4.2 % (4-6) 08/14/18 08:55 Calcium 8.5 mg/dL (8.4-10.2) 08/15/18 05:38 Iron 55 ug/dL (49-181) 08/14/18 20:18 TIBC 175 mcg/dL (250-450) L 08/14/18 20:18 % Saturation 31.43 % 08/14/18 20:18 162 mg/dl (180-329) L 08/14/18 20:18 0.40 mg/dL (0.1-1.2) 08/15/18 05:38 AST 11 units/L (5-40) 08/15/18 05:38 ALT 7 units/L (7-56) 08/15/18 05:38 76 units/L (35-129) 08/15/18 05:38 0.023 ng/mL (0.00-0.029) 08/14/18 22:50 5.8 g/dL (6.3-8.2) L 08/15/18 05:38 3.0 g/dL (3.9-5) L 08/15/18 05:38 1.1 % 08/15/18 05:38 40 units/L (13-60) 08/14/18 08:55 Vitamin B12 554.7 pg/mL (211-911) 08/14/18 20:18 PTH Intact 136.5 pg/mL (15-65) H 08/15/18 05:38 Straw (Yellow) 08/14/18 Unknown Clear (Clear) 08/14/18 Unknown 5.0 (5.0-7.0) 08/14/18 Unknown Ur Specific [place] 1.010 (1.003-1.030) 08/14/18 Unknown 100 mg/dl mg/dL (Negative) 08/14/18 Unknown Neg mg/dL (Negative) 08/14/18 Unknown Neg mg/dL (Negative) 08/14/18 Unknown Sm (Negative) 08/14/18 Unknown Neg (Negative) 08/14/18 Unknown Neg (Negative) 08/14/18 Unknown < 2.0 mg/dL (<2.0) 08/14/18 Unknown Ur Leukocyte Esterase Neg (Negative) 08/14/18 Unknown < 1.0 /HPF (0.0-6.0) 08/14/18 Unknown < 1.0 /HPF (0.0-6.0) 08/14/18 Unknown Presumptive negative 08/14/18 Unknown Presumptive negative 08/14/18 Unknown Ur Barbiturates Screen Presumptive negative 08/14/18 Unknown Ur Phencyclidine Scrn Presumptive negative 08/14/18 Unknown Ur Amphetamines Screen Presumptive negative 08/14/18 Unknown U Benzodiazepines Scrn Presumptive negative 08/14/18 Unknown Presumptive negative 08/14/18 Unknown U Marijuana (THC) Screen Presumptive negative 08/14/18 Unknown Disclamer 08/14/18 Unknown Active Medications - Current Medications Current Medications: Generic Name Dose Route Start Last Admin Trade Name Freq PRN Reason Stop Dose Admin Acetaminophen 650 mg 08/14/18 16:03 Tylenol PO Q4H PRN Pain MILD(1-3)/Fever >100.5/LIRA Carvedilol 12.5 mg 08/14/18 22:00 08/15/18 09:31 Coreg PO 12.5 mg BID MICHA Administration Enoxaparin Sodium 30 mg 08/14/18 18:00 08/15/18 09:31 Lovenox SUB-Q 30 mg QDAY MICHA Administration Famotidine 20 mg 08/14/18 22:00 08/15/18 09:31 Pepcid IV 20 mg DAILY MICHA Administration Hydromorphone HCl 0.5 mg 08/14/18 16:03 Dilaudid IV Q3H PRN Pain , Severe (7-10) Sodium Chloride 1,000 mls @ 75 mls/hr 08/14/18 17:00 Nacl 0.9% 1000 Ml IV DIRECT MICHA Sodium Chloride 1,000 mls @ 100 mls/hr 08/14/18 17:00 Nacl 0.9% 1000 Ml IV DIRECT MICHA Ibuprofen 600 mg 08/14/18 16:03 Ibuprofen PO Q6H PRN Pain, Mild (1-3) Losartan Potassium 100 mg 08/14/18 17:00 08/15/18 09:31 Cozaar PO 100 mg QDAY MICHA Administration Ondansetron HCl 4 mg 08/14/18 16:03 Zofran IV Q8H PRN Nausea And Vomiting Sodium Chloride 10 ml 08/14/18 22:00 08/15/18 09:31 Sodium Chloride Flush Syringe 10 Ml IV 10 ml BID MICHA Administration Sodium Chloride 10 ml 08/14/18 16:03 Sodium Chloride Flush Syringe 10 Ml IV PRN PRN LINE FLUSH
[2018-08-15] MEDS ORDERED: APRESOLINE IV PRN (10:27)
--- NOTE | 2018-08-15 10:48 | Consultation ---
History of Present Illness - Reason for Consult Consult date: 08/15/18 acute renal failure, chronic renal failure, metabolic acidosis - History of Present Illness The patient is a 72 YO male with history significant for Charcot Jessica Tooth disease , Hypertension, ?Type 2 DM, Polio as child, CVA with left-sided weakness and CKD who presented with chest pain. Patient is a very poor historian. he described the pain as sharp, L sided, scale of 5 out 10 and not radiating. He denies N, V, D, abd pain, diaphoresis, palpitations, shortness of breath, dizziness, syncope, leg swelling, dysuria or hematuria. [facility]. Creatinine is 2.6. Nephrology was consulted for further evaluation. Past History Past Medical History: diabetes, hypertension Medications and Allergies Allergies Allergy/AdvReac Type Severity Reaction Status Date / Time No Known Allergies Allergy Verified 02/14/18 10:41 Home Medications Medication Instructions Recorded Confirmed Last Taken Type No Known Home Medications [No 08/14/18 08/14/18 Unknown History Reported Home Medications] Active Meds: Active Medications Acetaminophen (Tylenol) 650 mg PO Q4H PRN PRN Reason: Pain MILD(1-3)/Fever >100.5/LIRA Carvedilol (Coreg) 12.5 mg PO BID [facility] Last Admin: 08/15/18 09:31 Dose: 12.5 mg Documented by: Enoxaparin Sodium (Lovenox) 30 mg SUB-Q QDAY [facility] Last Admin: 08/15/18 09:31 Dose: 30 mg Documented by: Famotidine (Pepcid) 20 mg IV DAILY [facility] Last Admin: 08/15/18 09:31 Dose: 20 mg Documented by: Hydralazine HCl (Apresoline) 50 mg PO Q8HR [facility] Hydralazine HCl (Apresoline) 20 mg IV Q4HR PRN PRN Reason: SBP>170 or DBP>110 Hydromorphone HCl (Dilaudid) 0.5 mg IV Q3H PRN PRN Reason: Pain , Severe (7-10) Sodium Chloride (Nacl 0.9% 1000 Ml) 1,000 mls @ 75 mls/hr IV DIRECT MICHA Sodium Chloride (Nacl 0.9% 1000 Ml) 1,000 mls @ 100 mls/hr IV DIRECT [facility] Ibuprofen (Ibuprofen) 600 mg PO Q6H PRN PRN Reason: Pain, Mild (1-3) Losartan Potassium (Cozaar) 100 mg PO QDAY [facility] Last Admin: 08/15/18 09:31 Dose: 100 mg Documented by: Ondansetron HCl (Zofran) 4 mg IV Q8H PRN PRN Reason: Nausea And Vomiting Sodium Chloride (Sodium Chloride Flush Syringe 10 Ml) 10 ml IV BID [facility] Last Admin: 08/15/18 09:31 Dose: 10 ml Documented by: Sodium Chloride (Sodium Chloride Flush Syringe 10 Ml) 10 ml IV PRN PRN PRN Reason: LINE FLUSH Review of Systems Constitutional: no weight loss, no weight gain, no fever, no chills, no anorexia, no weakness, no poor appetite Cardiovascular: chest pain, high blood pressure, no orthopnea, no palpitations, no edema, no syncope, no lightheadedness, no shortness of breath, no leg edema Respiratory: no cough, no hemoptysis, no shortness of breath Gastrointestinal: no abdominal pain, no nausea, no vomiting, no diarrhea, no hematemesis, no melena Genitourinary Male: no dysuria, no hematuria Integumentary: no rash, no sores, no wounds, no jaundice Neurological: aphasia, no paralysis, no weakness, no seizures, no convulsions, no change in speech, no confusion, no double vision, no loss of vision Exam - Vital Signs Vital signs: Vital Signs Pulse Resp Pulse Ox 55 L 11 L 97 08/14/18 07:51 08/14/18 07:51 08/14/18 07:51 - General Appearance General appearance: well-developed, appears stated age, other (no distress) EENT: ATNC, PERRL, mucous membranes moist, hearing intact, vision intact Neck: Present: neck supple, trachea midline Respiratory: Clear to Ascultation Heart: regular, S1S2, no murmurs Gastrointestinal: Present: normoactive bowel sounds. Absent: tenderness, distended Integumentary: other (small scab over the R leg) Neurologic: alert and oriented x3, other (b/l UE weakness, L > R, FA and hand muscle atrophy noted) Musculoskeletal: Present: other (1+ edema of both LEs noted) Psychiatric: cooperative Results - Lab Results 08/18/18 07:49 08/18/18 07:49 Most recent lab results Calcium 8.5 mg/dL (8.4-10.2) 08/15/18 05:38 - Image Kidney/bladder ultrasound: pending Assessment and Plan 1. Acute kidney injury: Vasomotor KEMAL superimposed on CKD. Urine studies and renal US pending. Renal function unchanged since admission. Monitor renal function. Renal prognosis is guarded. Avoid nephrotoxic agents. Meds dosage based on GFR. 2. FEN: Metabolic acidosis, monitor. Volume overload, monitor. Monitor lytes. 3. Chest pain. 4. Uncontrolled HTN. 5. Anemia: POA.
[2018-08-15] MEDS ORDERED: LASIX IV NR (10:51)
--- NOTE | 2018-08-15 10:52 | Consultation ---
History of Present Illness Consult date: 08/15/18 Consult reason: chest pain History of present illness: Patient is a 72 year old male with chronic uncontrolled hypertension who is admitted with atypical chest pain. Cardiac consultation requested. Chest x-ray reports no acute process. Cycles cardiac enzymes are normal and his ECG is sinus rhythm, LVH with repolarization abnormalities. Most notably, his blood pressure has remained elevated since admission with systolic BP ranging 170-200s. Patient has had extensive cardiac workup in the past. In 2013, a cardiac catheterization documents normal coronaries and normal left ventricular systolic function. Following that, he had multiple stress thallium tests including two last year that reports no reversible ischemia. Multiple echocardiograms has also shown normal left ventricular systolic function. Medications and Allergies Allergies Allergy/AdvReac Type Severity Reaction Status Date / Time No Known Allergies Allergy Verified 02/14/18 10:41 Home Medications Medication Instructions Recorded Confirmed Last Taken Type No Known Home Medications [No 08/14/18 08/14/18 Unknown History Reported Home Medications] Active Meds: Active Medications Acetaminophen (Tylenol) 650 mg PO Q4H PRN PRN Reason: Pain MILD(1-3)/Fever >100.5/LIRA Carvedilol (Coreg) 12.5 mg PO BID [facility] Last Admin: 08/15/18 09:31 Dose: 12.5 mg Documented by: Enoxaparin Sodium (Lovenox) 30 mg SUB-Q QDAY [facility] Last Admin: 08/15/18 09:31 Dose: 30 mg Documented by: Famotidine (Pepcid) 20 mg IV DAILY [facility] Last Admin: 08/15/18 09:31 Dose: 20 mg Documented by: Hydralazine HCl (Apresoline) 50 mg PO Q8HR [facility] Hydralazine HCl (Apresoline) 20 mg IV Q4HR PRN PRN Reason: SBP>170 or DBP>110 Hydromorphone HCl (Dilaudid) 0.5 mg IV Q3H PRN PRN Reason: Pain , Severe (7-10) Sodium Chloride (Nacl 0.9% 1000 Ml) 1,000 mls @ 75 mls/hr IV DIRECT MICHA Sodium Chloride (Nacl 0.9% 1000 Ml) 1,000 mls @ 100 mls/hr IV DIRECT MICHA Ibuprofen (Ibuprofen) 600 mg PO Q6H PRN PRN Reason: Pain, Mild (1-3) Losartan Potassium (Cozaar) 100 mg PO QDAY [facility] Last Admin: 08/15/18 09:31 Dose: 100 mg Documented by: Ondansetron HCl (Zofran) 4 mg IV Q8H PRN PRN Reason: Nausea And Vomiting Sodium Chloride (Sodium Chloride Flush Syringe 10 Ml) 10 ml IV BID [facility] Last Admin: 08/15/18 09:31 Dose: 10 ml Documented by: Sodium Chloride (Sodium Chloride Flush Syringe 10 Ml) 10 ml IV PRN PRN PRN Reason: LINE FLUSH Physical Examination Vital Signs Pulse Resp Pulse Ox 55 L 11 L 97 08/14/18 07:51 08/14/18 07:51 08/14/18 07:51 General appearance: no acute distress HEENT: Positive: PERRL Neck: Positive: trachea midline Cardiac: Positive: Reg Rate and Rhythm Lungs: Positive: Decreased Breath Sounds Results 08/15/18 05:38 08/15/18 05:38 Cardiac Enzymes 08/15/18 Range/Units 05:38 AST 11 (5-40) units/L CBC 08/15/18 Range/Units 05:38 WBC 3.5 L (4.5-11.0) K/mm3 RBC 3.36 L (3.65-5.03) M/mm3 Hgb 10.1 L (11.8-15.2) gm/dl Hct 30.1 L (35.5-45.6) % Plt Count 258 (140-440) K/mm3 Lymph # 1.1 L (1.2-5.4) K/mm3 [place] # 0.3 (0.0-0.8) K/mm3 Eos # 0.1 (0.0-0.4) K/mm3 Baso # 0.0 (0.0-0.1) K/mm3 Comprehensive Metabolic Panel 08/15/18 Range/Units 05:38 Sodium 146 H (137-145) mmol/L Potassium 4.5 (3.6-5.0) mmol/L Chloride 117.2 H (98-107) mmol/L Carbon Dioxide 17 L (22-30) mmol/L BUN 44 H (9-20) mg/dL Creatinine 2.7 H (0.8-1.5) mg/dL Glucose 91 (75-100) mg/dL Calcium 8.5 (8.4-10.2) mg/dL AST 11 (5-40) units/L ALT 7 (7-56) units/L Alkaline Phosphatase 76 (35-129) units/L Total Protein 5.8 L (6.3-8.2) g/dL Albumin 3.0 L (3.9-5) g/dL Assessment and Plan Uncontrolled hypertension Atypical chest pain No ischemia by MPI 01/2018 No ischemia by MPI 05/2017 Normal coronaries by [facility] in [facility]
[2018-08-15] MEDS: APRESOLINE PO SCH ×3 (11:11→23:07)
[2018-08-15] MEDS: PROCARDIA XL PO SCH (13:42)
[2018-08-15 18:32] LABS: Creatinine,Urine 23.1 mg/dL (0.1-20.0); Protein/Creatinine Ratio,Urine 4.2
--- NOTE | 2018-08-16 00:50 | Ultrasound Report ---
PROCEDURE: US RENAL BILAT TECHNIQUE: Real-time sonography in multiple planes of the kidneys, ureters and urinary bladder was p erformed with image documentation. HISTORY: Acute renal failure. COMPARISONS: January 24, 2018 . FINDINGS: RIGHT kidney: There are a few subcentimeter right renal cortical cysts. The largest in the lateral ri ght renal cortex measures up to 9 mm. One in the superior right renal cortex measures up to 6 mm. No hydronephrosis. No renal stones. Length: 10.5 cm. LEFT kidney: There are left renal cortical cysts. In the inferior pole of the left renal cortex there is a cyst measuring up to 3.8 cm. In the upper pole of the left renal cortex a cyst measures up to 1 .7 cm. No hydronephrosis. No renal calculi.. Length: 11.6 cm. Bladder: Not well imaged on this study. There remains a 2.2 cm area of increased echogenicity in the posterior wall of the urinary bladder. The etiology is not clear on this study. This may represent a polyp. This has not changed since prior study.. IMPRESSION: Bilateral renal cortical cysts are identified. The largest in the left renal cortex kitty ures up to 3.8 cm. No evidence of hydronephrosis. The findings have not changed significantly since p rior study. A 2.2 cm area of increased echogenicity in the posterior wall of the urinary bladder may represent a polyp or other etiologies. This has not changed significantly since prior study.. . This document is electronically signed by Jody Dunlap DO., August 16 2018 12:48:41 AM ET
[2018-08-16] MEDS: APRESOLINE PO SCH ×3 (06:48→21:33)
--- NOTE | 2018-08-16 10:04 | Progress Note ---
Assessment and Plan Uncontrolled hypertension -improved Atypical chest pain No ischemia by MPI 01/2018 No ischemia by MPI 05/2017 Normal coronaries by C in 2013 Acute renal failure Abdominal pain Normal LVEF, 65% by echo 01/2018. Continue optimal blood pressure management. Otherwise, conservative cardiac management. Subjective Date of service: 08/16/18 Interval history: Patient complains of abdominal pain with abdominal distention. He denies chest pain. Blood pressure has improved. Objective Vital Signs Temp Pulse Resp BP Pulse Ox 08/16/18 07:55 56 L 20 157/61 100 08/16/18 06:48 132/46 08/16/18 04:00 97.8 F 52 L 18 137/46 99 08/15/18 23:24 98.0 F 48 L 18 138/47 99 08/15/18 19:36 97.9 F 49 L 18 112/44 100 08/15/18 16:40 56 L 153/49 98 08/15/18 11:49 48 L 149/56 99 - Physical Examination General: No Apparent Distress HEENT: Positive: PERRL Neck: Positive: trachea midline Cardiac: Positive: Bradycardia Lungs: Positive: Decreased Breath Sounds Neuro: Positive: Grossly Intact - Labs and Meds Comprehensive Metabolic Panel 08/16/18 Range/Units 05:02 Sodium 147 H (137-145) mmol/L Potassium 4.5 (3.6-5.0) mmol/L Chloride 114.3 H (98-107) mmol/L Carbon Dioxide 18 L (22-30) mmol/L BUN 45 H (9-20) mg/dL Creatinine 3.2 H (0.8-1.5) mg/dL Glucose 144 H (75-100) mg/dL Calcium 8.0 L (8.4-10.2) mg/dL
[2018-08-16] MEDS: PEPCID PO SCH (10:07)
[2018-08-16] MEDS: PROCARDIA XL PO SCH (10:07)
[2018-08-16] MEDS: COZAAR PO SCH (10:09)
[2018-08-16] MEDS: SODIUM CHLORIDE FLUSH SYRINGE 10 ML IV SCH ×2 (10:09→21:34)
[2018-08-16] MEDS: LOVENOX SUB-Q SCH (10:10)
--- NOTE | 2018-08-16 13:36 | Progress Note ---
Assessment and Plan Assessment and plan: Chest pain admitted to Tele cardiology consulted hypertensive emergency On Hydralazine, cozar, nidfedipine Diabetes mellitus type 2. accucheck qaac and hs Bradycardia KEMAL Worse today Cr 3.2 today Nephrology following Seizure disorder Hypernatremia Monitor Charcot Jessica Tooth disease Full code status History Interval history: Chest pain Hospitalist Physical - Physical exam Narrative exam: Gen: Not in acute distress, lying in bed, obese HEENT: Normocephalic, atraumatic Neck: supple, no JVD Heart: S1 and S2 reg, no murmurs, rubs or gallop Lungs: Clear, no crackles, no wheeze Abd: soft, non tender, non distended, normal BS Ext: No edema, no clubbing, no cyanosis, Neuro: Awake,alert, oriented x 3, moves all ext - Constitutional Vitals: Temp Pulse Resp BP Pulse Ox 97.8 F 55 L 20 153/48 100 08/16/18 04:00 08/16/18 10:09 08/16/18 07:55 08/16/18 10:09 08/16/18 07:55 General appearance: Present: no acute distress, well-nourished Results - Labs CBC & Chem 7: 08/15/18 05:38 08/16/18 05:02 Labs: Laboratory Last Values WBC 3.5 K/mm3 (4.5-11.0) L 08/15/18 05:38 RBC 3.36 M/mm3 (3.65-5.03) L 08/15/18 05:38 Hgb 10.1 gm/dl (11.8-15.2) L 08/15/18 05:38 Hct 30.1 % (35.5-45.6) L 08/15/18 05:38 MCV 90 fl (84-94) 08/15/18 05:38 MCH 30 pg (28-32) 08/15/18 05:38 MCHC 34 % (32-34) 08/15/18 05:38 RDW 14.7 % (13.2-15.2) 08/15/18 05:38 Plt Count 258 K/mm3 (140-440) 08/15/18 05:38 Lymph % (Auto) 30.0 % (13.4-35.0) 08/15/18 05:38 [place] % (Auto) 8.4 % (0.0-7.3) H 08/15/18 05:38 Eos % (Auto) 3.0 % (0.0-4.3) 08/15/18 05:38 Baso % (Auto) 1.2 % (0.0-1.8) 08/15/18 05:38 Lymph # 1.1 K/mm3 (1.2-5.4) L 08/15/18 05:38 [place] # 0.3 K/mm3 (0.0-0.8) 08/15/18 05:38 Eos # 0.1 K/mm3 (0.0-0.4) 08/15/18 05:38 Baso # 0.0 K/mm3 (0.0-0.1) 08/15/18 05:38 Seg Neutrophils % 57.4 % (40.0-70.0) 08/15/18 05:38 Seg Neutrophils # 2.0 K/mm3 (1.8-7.7) 08/15/18 05:38 PT 14.3 Sec. (12.2-14.9) 08/14/18 08:55 INR 1.05 (0.87-1.13) 08/14/18 08:55 APTT 28.4 Sec. (24.2-36.6) 08/14/18 08:55 Sodium 147 mmol/L (137-145) H 08/16/18 05:02 Potassium 4.5 mmol/L (3.6-5.0) 08/16/18 05:02 Chloride 114.3 mmol/L (98-107) H 08/16/18 05:02 Carbon Dioxide 18 mmol/L (22-30) L 08/16/18 05:02 19 mmol/L 08/16/18 05:02 BUN 45 mg/dL (9-20) H 08/16/18 05:02 3.2 mg/dL (0.8-1.5) H 08/16/18 05:02 Estimated GFR 23 ml/min 08/16/18 05:02 14 % 08/16/18 05:02 Glucose 144 mg/dL (75-100) H 08/16/18 05:02 4.2 % (4-6) 08/14/18 08:55 Calcium 8.0 mg/dL (8.4-10.2) L 08/16/18 05:02 Iron 55 ug/dL (49-181) 08/14/18 20:18 TIBC 175 mcg/dL (250-450) L 08/14/18 20:18 % Saturation 31.43 % 08/14/18 20:18 162 mg/dl (180-329) L 08/14/18 20:18 0.40 mg/dL (0.1-1.2) 08/15/18 05:38 AST 11 units/L (5-40) 08/15/18 05:38 ALT 7 units/L (7-56) 08/15/18 05:38 76 units/L (35-129) 08/15/18 05:38 0.023 ng/mL (0.00-0.029) 08/14/18 22:50 5.8 g/dL (6.3-8.2) L 08/15/18 05:38 3.0 g/dL (3.9-5) L 08/15/18 05:38 1.1 % 08/15/18 05:38 40 units/L (13-60) 08/14/18 08:55 Vitamin B12 554.7 pg/mL (211-911) 08/14/18 20:18 PTH Intact 136.5 pg/mL (15-65) H 08/15/18 05:38 Straw (Yellow) 08/14/18 Unknown Clear (Clear) 08/14/18 Unknown 5.0 (5.0-7.0) 08/14/18 Unknown Ur Specific [place] 1.010 (1.003-1.030) 08/14/18 Unknown 100 mg/dl mg/dL (Negative) 08/14/18 Unknown Neg mg/dL (Negative) 08/14/18 Unknown Neg mg/dL (Negative) 08/14/18 Unknown Sm (Negative) 08/14/18 Unknown Neg (Negative) 08/14/18 Unknown Neg (Negative) 08/14/18 Unknown < 2.0 mg/dL (<2.0) 08/14/18 Unknown Ur Leukocyte Esterase Neg (Negative) 08/14/18 Unknown < 1.0 /HPF (0.0-6.0) 08/14/18 Unknown < 1.0 /HPF (0.0-6.0) 08/14/18 Unknown 23.1 mg/dL (0.1-20.0) H 08/15/18 18:00 Protein/Creatinin Ratio 4.20 08/15/18 18:00 123 mmol/L 08/15/18 18:00 97 mg/dL (5-11.8) H 08/15/18 18:00 Presumptive negative 08/14/18 Unknown Presumptive negative 08/14/18 Unknown Ur Barbiturates Screen Presumptive negative 08/14/18 Unknown Ur Phencyclidine Scrn Presumptive negative 08/14/18 Unknown Ur Amphetamines Screen Presumptive negative 08/14/18 Unknown U Benzodiazepines Scrn Presumptive negative 08/14/18 Unknown Presumptive negative 08/14/18 Unknown U Marijuana (THC) Screen Presumptive negative 08/14/18 Unknown Disclamer 08/14/18 Unknown Active Medications - Current Medications Current Medications: Generic Name Dose Route Start Last Admin Trade Name Freq PRN Reason Stop Dose Admin Acetaminophen 650 mg 08/14/18 16:03 Tylenol PO Q4H PRN Pain MILD(1-3)/Fever >100.5/LIRA Enoxaparin Sodium 30 mg 08/14/18 18:00 08/16/18 10:10 Lovenox SUB-Q 30 mg QDAY MICHA Administration Famotidine 20 mg 08/16/18 10:00 08/16/18 10:07 Pepcid PO 20 mg DAILY MICHA Administration Hydralazine HCl 50 mg 08/15/18 11:00 08/16/18 06:48 Apresoline PO 50 mg Q8HR MICHA Administration Hydralazine HCl 20 mg 08/15/18 10:27 Apresoline IV Q4HR PRN SBP>170 or DBP>110 Hydromorphone HCl 0.5 mg 08/14/18 16:03 Dilaudid IV Q3H PRN Pain , Severe (7-10) Losartan Potassium 100 mg 08/14/18 17:00 08/16/18 10:09 Cozaar PO 100 mg QDAY MICHA Administration Nifedipine 90 mg 08/15/18 13:00 08/16/18 10:07 Procardia Xl PO 90 mg QDAY MICHA Administration Ondansetron HCl 4 mg 08/14/18 16:03 Zofran IV Q8H PRN Nausea And Vomiting Sodium Chloride 10 ml 08/14/18 22:00 08/16/18 10:09 Sodium Chloride Flush Syringe 10 Ml IV 10 ml BID MICHA Administration Sodium Chloride 10 ml 08/14/18 16:03 Sodium Chloride Flush Syringe 10 Ml IV PRN PRN LINE FLUSH Nutrition/Malnutrition Assess - Dietary Evaluation Nutrition/Malnutrition Findings: Nutrition Notes Start: 08/15/18 15:45 Freq: Status: Active Protocol: Document 08/15/18 15:45 RM (Rec: 08/15/18 15:48 RM [id number]) Nutrition Notes Need for Assessment generated from: MST Initial or Follow up Brief Note Current Diagnosis Acute Kidney Injury,Diabetes, Hypertension Other Pertinent Diagnosis Hx CVA, Jessica tooth disease Current Diet Cardiac Subjective/Other Information Screened for malnutrition. Pt NPO earlier today. Cardic diet ordered later today. Pt asleep at time of visit. Nutrition Intervention Follow-Up By: 08/16/18 Additional Comments Follow for malnutrition assessment
--- NOTE | 2018-08-16 14:05 | Progress Note ---
Assessment and Plan 1. Acute kidney injury: Vasomotor KEMAL superimposed on CKD. Urine studies and renal US pending. Increase in the creatinine level noted. His creatinine was around about 6 months ago. Monitor renal function. Renal prognosis is guarded. Avoid nephrotoxic agents. Meds dosage based on GFR. 2. FEN: Metabolic acidosis, monitor. Volume overload, improving. Hypernatremia, monitor. Monitor lytes. 3. Chest pain. 4. Uncontrolled HTN: BP improving. 5. Anemia: POA. Subjective Date of service: 08/16/18 Interval history: Patient was seen and examined at the bedside. Objective - Vital Signs Vital signs: Vital Signs - 12hr 08/16/18 08/16/18 08/16/18 04:00 06:48 07:55 Temperature 97.8 F Pulse Rate 52 L 56 L Respiratory 18 20 Rate Blood Pressure 137/46 132/46 157/61 O2 Sat by Pulse 99 100 Oximetry 08/16/18 08/16/18 08/16/18 09:00 10:09 13:30 Temperature Pulse Rate 53 L 55 L 55 L Respiratory Rate Blood Pressure 153/48 169/56 O2 Sat by Pulse Oximetry - General Appearance General appearance: well-developed, appears stated age, other (not in distress, frail, emaciated) EENT: ATNC, PERRL, mucous membranes moist, hearing intact, vision intact Neck: supple Respiratory: Present: Clear to Ascultation Cardiology: regular, S1S2, no murmurs Gastrointestinal: normoactive bowel sounds, no tenderness, no distended Integumentary: no rash, warm and dry Neurologic: no asterixis, alert and oriented x3, other (b/l UE weakness, L > R, FA and hand muscle atrophy noted) Musculoskeletal: other (LE edema noted) Psychiatric: cooperative - Lab 08/18/18 07:49 08/18/18 07:49 Most recent lab results Calcium 8.0 mg/dL (8.4-10.2) L 08/16/18 05:02 23.1 mg/dL (0.1-20.0) H 08/15/18 18:00 123 mmol/L 08/15/18 18:00 97 mg/dL (5-11.8) H 08/15/18 18:00 Medications & Allergies - Medications Allergies/Adverse Reactions: Allergies No Known Allergies Allergy (Verified 02/14/18 10:41) Home Medications: Home Medications Medication Instructions Recorded Confirmed Last Taken Type No Known Home Medications [No 08/14/18 08/14/18 Unknown History Reported Home Medications] Active Medications: Generic Name Dose Route Start Last Admin Trade Name Freddieq PRN Reason Stop Dose Admin Acetaminophen 650 mg 08/14/18 16:03 Tylenol PO Q4H PRN Pain MILD(1-3)/Fever >100.5/LIRA Enoxaparin Sodium 30 mg 08/14/18 18:00 08/16/18 10:10 Lovenox SUB-Q 30 mg QDAY MICHA Administration Famotidine 20 mg 08/16/18 10:00 08/16/18 10:07 Pepcid PO 20 mg DAILY MICHA Administration Hydralazine HCl 50 mg 08/15/18 11:00 08/16/18 13:30 Apresoline PO 50 mg Q8HR MICHA Administration Hydralazine HCl 20 mg 08/15/18 10:27 Apresoline IV Q4HR PRN SBP>170 or DBP>110 Hydromorphone HCl 0.5 mg 08/14/18 16:03 Dilaudid IV Q3H PRN Pain , Severe (7-10) Losartan Potassium 100 mg 08/14/18 17:00 08/16/18 10:09 Cozaar PO 100 mg QDAY MICHA Administration Nifedipine 90 mg 08/15/18 13:00 08/16/18 10:07 Procardia Xl PO 90 mg QDAY MICHA Administration Ondansetron HCl 4 mg 08/14/18 16:03 Zofran IV Q8H PRN Nausea And Vomiting Sodium Chloride 10 ml 08/14/18 22:00 08/16/18 10:09 Sodium Chloride Flush Syringe 10 Ml IV 10 ml BID MICHA Administration Sodium Chloride 10 ml 08/14/18 16:03 Sodium Chloride Flush Syringe 10 Ml IV PRN PRN LINE FLUSH
[2018-08-17 05:57] LABS: Calcium 8.4 mg/dL (8.4-10.2)
[2018-08-17] MEDS: APRESOLINE PO SCH ×3 (06:10→22:13)
[2018-08-17] MEDS: PROCARDIA XL PO SCH (10:00)
[2018-08-17] MEDS: COZAAR PO SCH (10:00)
[2018-08-17] MEDS: LOVENOX SUB-Q SCH (10:00)
[2018-08-17] MEDS: PEPCID PO SCH (10:00)
[2018-08-17] MEDS: SODIUM CHLORIDE FLUSH SYRINGE 10 ML IV SCH ×2 (10:01→22:14)
--- NOTE | 2018-08-17 12:16 | Progress Note ---
Assessment and Plan Assessment and plan: Chest pain admitted to Tele Non cardiac Normal stress test 01/27 Normal cath in [address] Abd done report pending hypertensive emergency On Hydralazine, cozar, nidfedipine Diabetes mellitus type 2. accucheck qaac and hs Bradycardia KEMAL Cr 2.9 today Nephrology following Seizure disorder Hypernatremia Monitor Charcot Jessica Tooth disease Full code status History Interval history: Chest pain resolved No shortness of breath Abd pain, had bowel movement yesterday Hospitalist Physical - Physical exam Narrative exam: Gen: Not in acute distress, lying in bed, HEENT: Normocephalic, atraumatic Neck: supple, no JVD Heart: S1 and S2 reg, no murmurs, rubs or gallop Lungs: Clear, no crackles, no wheeze Abd: soft, mild tender, no rebound, mild distemnded, normal BS Ext: No edema, no clubbing, no cyanosis, Neuro: Awake,alert, oriented x 3, moves all ext - Constitutional Vitals: Temp Pulse Resp BP Pulse Ox 98.4 F 60 20 148/54 97 08/17/18 08:33 08/17/18 10:00 08/17/18 12:00 08/17/18 10:00 08/17/18 08:33 General appearance: Present: no acute distress, well-nourished Results - Labs CBC & Chem 7: 08/15/18 05:38 08/17/18 04:45 Labs: Laboratory Last Values WBC 3.5 K/mm3 (4.5-11.0) L 08/15/18 05:38 RBC 3.36 M/mm3 (3.65-5.03) L 08/15/18 05:38 Hgb 10.1 gm/dl (11.8-15.2) L 08/15/18 05:38 Hct 30.1 % (35.5-45.6) L 08/15/18 05:38 MCV 90 fl (84-94) 08/15/18 05:38 MCH 30 pg (28-32) 08/15/18 05:38 MCHC 34 % (32-34) 08/15/18 05:38 RDW 14.7 % (13.2-15.2) 08/15/18 05:38 Plt Count 258 K/mm3 (140-440) 08/15/18 05:38 Lymph % (Auto) 30.0 % (13.4-35.0) 08/15/18 05:38 [place] % (Auto) 8.4 % (0.0-7.3) H 08/15/18 05:38 Eos % (Auto) 3.0 % (0.0-4.3) 08/15/18 05:38 Baso % (Auto) 1.2 % (0.0-1.8) 08/15/18 05:38 Lymph # 1.1 K/mm3 (1.2-5.4) L 08/15/18 05:38 [place] # 0.3 K/mm3 (0.0-0.8) 08/15/18 05:38 Eos # 0.1 K/mm3 (0.0-0.4) 08/15/18 05:38 Baso # 0.0 K/mm3 (0.0-0.1) 08/15/18 05:38 Seg Neutrophils % 57.4 % (40.0-70.0) 08/15/18 05:38 Seg Neutrophils # 2.0 K/mm3 (1.8-7.7) 08/15/18 05:38 PT 14.3 Sec. (12.2-14.9) 08/14/18 08:55 INR 1.05 (0.87-1.13) 08/14/18 08:55 APTT 28.4 Sec. (24.2-36.6) 08/14/18 08:55 Sodium 146 mmol/L (137-145) H 08/17/18 04:45 Potassium 4.3 mmol/L (3.6-5.0) 08/17/18 04:45 Chloride 116.1 mmol/L (98-107) H 08/17/18 04:45 Carbon Dioxide 20 mmol/L (22-30) L 08/17/18 04:45 14 mmol/L 08/17/18 04:45 BUN 41 mg/dL (9-20) H 08/17/18 04:45 2.9 mg/dL (0.8-1.5) H 08/17/18 04:45 Estimated GFR 26 ml/min 08/17/18 04:45 14 % 08/17/18 04:45 Glucose 105 mg/dL (75-100) H 08/17/18 04:45 4.2 % (4-6) 08/14/18 08:55 Calcium 8.4 mg/dL (8.4-10.2) 08/17/18 04:45 Iron 55 ug/dL (49-181) 08/14/18 20:18 TIBC 175 mcg/dL (250-450) L 08/14/18 20:18 % Saturation 31.43 % 08/14/18 20:18 162 mg/dl (180-329) L 08/14/18 20:18 0.40 mg/dL (0.1-1.2) 08/15/18 05:38 AST 11 units/L (5-40) 08/15/18 05:38 ALT 7 units/L (7-56) 08/15/18 05:38 76 units/L (35-129) 08/15/18 05:38 0.023 ng/mL (0.00-0.029) 08/14/18 22:50 5.8 g/dL (6.3-8.2) L 08/15/18 05:38 3.0 g/dL (3.9-5) L 08/15/18 05:38 1.1 % 08/15/18 05:38 40 units/L (13-60) 08/14/18 08:55 Vitamin B12 554.7 pg/mL (211-911) 08/14/18 20:18 PTH Intact 136.5 pg/mL (15-65) H 08/15/18 05:38 Straw (Yellow) 08/14/18 Unknown Clear (Clear) 08/14/18 Unknown 5.0 (5.0-7.0) 08/14/18 Unknown Ur Specific [place] 1.010 (1.003-1.030) 08/14/18 Unknown 100 mg/dl mg/dL (Negative) 08/14/18 Unknown Neg mg/dL (Negative) 08/14/18 Unknown Neg mg/dL (Negative) 08/14/18 Unknown Sm (Negative) 08/14/18 Unknown Neg (Negative) 08/14/18 Unknown Neg (Negative) 08/14/18 Unknown < 2.0 mg/dL (<2.0) 08/14/18 Unknown Ur Leukocyte Esterase Neg (Negative) 08/14/18 Unknown < 1.0 /HPF (0.0-6.0) 08/14/18 Unknown < 1.0 /HPF (0.0-6.0) 08/14/18 Unknown 23.1 mg/dL (0.1-20.0) H 08/15/18 18:00 Protein/Creatinin Ratio 4.20 08/15/18 18:00 123 mmol/L 08/15/18 18:00 97 mg/dL (5-11.8) H 08/15/18 18:00 Presumptive negative 08/14/18 Unknown Presumptive negative 08/14/18 Unknown Ur Barbiturates Screen Presumptive negative 08/14/18 Unknown Ur Phencyclidine Scrn Presumptive negative 08/14/18 Unknown Ur Amphetamines Screen Presumptive negative 08/14/18 Unknown U Benzodiazepines Scrn Presumptive negative 08/14/18 Unknown Presumptive negative 08/14/18 Unknown U Marijuana (THC) Screen Presumptive negative 08/14/18 Unknown Disclamer 08/14/18 Unknown Active Medications - Current Medications Current Medications: Generic Name Dose Route Start Last Admin Trade Name Freq PRN Reason Stop Dose Admin Acetaminophen 650 mg 08/14/18 16:03 Tylenol PO Q4H PRN Pain MILD(1-3)/Fever >100.5/LIRA Enoxaparin Sodium 30 mg 08/14/18 18:00 08/17/18 10:00 Lovenox SUB-Q 30 mg QDAY MICHA Administration Famotidine 20 mg 08/16/18 10:00 08/17/18 10:00 Pepcid PO 20 mg DAILY MICHA Administration Hydralazine HCl 50 mg 08/15/18 11:00 08/17/18 06:10 Apresoline PO 50 mg Q8HR MICHA Administration Hydralazine HCl 20 mg 08/15/18 10:27 Apresoline IV Q4HR PRN SBP>170 or DBP>110 Hydromorphone HCl 0.5 mg 08/14/18 16:03 Dilaudid IV Q3H PRN Pain , Severe (7-10) Losartan Potassium 100 mg 08/14/18 17:00 08/17/18 10:00 Cozaar PO 100 mg QDAY MICHA Administration Nifedipine 90 mg 08/15/18 13:00 08/17/18 10:00 Procardia Xl PO 90 mg QDAY MICHA Administration Ondansetron HCl 4 mg 08/14/18 16:03 Zofran IV Q8H PRN Nausea And Vomiting Sodium Chloride 10 ml 08/14/18 22:00 08/17/18 10:01 Sodium Chloride Flush Syringe 10 Ml IV 10 ml BID MICHA Administration Sodium Chloride 10 ml 08/14/18 16:03 Sodium Chloride Flush Syringe 10 Ml IV PRN PRN LINE FLUSH Nutrition/Malnutrition Assess - Dietary Evaluation Nutrition/Malnutrition Findings: Nutrition Notes Start: 08/15/18 15:45 Freq: Status: Active Protocol: Document 08/16/18 16:10 RM (Rec: 08/16/18 16:14 RM [id number]) Nutrition Notes Initial or Follow up Brief Note Subjective/Other Information Pt not in room at time of visit. Tech unsure how much pt has been eating. Nutrition Intervention Follow-Up By: 08/17/18 Additional Comments Follow for malnutrition assessment
--- NOTE | 2018-08-17 12:55 | Progress Note ---
Assessment and Plan - Patient Problems (1) Hypertensive emergency Current Visit: Yes Status: Acute Plan to address problem: Blood pressure control is improved, currently 140s systolic on Procardia XL. Subjective Date of service: 08/17/18 Interval history: Patient is comfortable, no new cardiac complaints. Objective Vital Signs Temp Pulse Pulse Pulse Pulse Resp BP 08/17/18 12:00 20 08/17/18 10:00 60 148/54 08/17/18 08:33 98.4 F 60 16 149/54 08/17/18 08:00 62 08/17/18 04:19 98.4 F 60 18 152/62 08/16/18 23:58 98.0 F 54 L 18 129/54 08/16/18 20:45 54 L 08/16/18 19:31 98.2 F 60 18 123/39 08/16/18 17:00 73 55 L 55 L 55 L 15 08/16/18 16:39 54 L 24 140/44 08/16/18 13:30 55 L 169/56 08/16/18 13:27 55 L 169/56 Pulse Ox 08/17/18 12:00 08/17/18 10:00 08/17/18 08:33 97 08/17/18 08:00 08/17/18 04:19 98 08/16/18 23:58 99 08/16/18 20:45 08/16/18 19:31 100 08/16/18 17:00 99 08/16/18 16:39 100 08/16/18 13:30 08/16/18 13:27 99 - Physical Examination General: No Apparent Distress HEENT: Positive: PERRL Neck: Positive: trachea midline Cardiac: Positive: Reg Rate and Rhythm Lungs: Positive: Decreased Breath Sounds Neuro: Positive: Weakness Abdomen: Positive: Soft Skin: Positive: Clear Musculoskeletal: other (generalized muscle atrophy) Extremities: Absent: edema - Labs and Meds Comprehensive Metabolic Panel 08/17/18 Range/Units 04:45 Sodium 146 H (137-145) mmol/L Potassium 4.3 (3.6-5.0) mmol/L Chloride 116.1 H (98-107) mmol/L Carbon Dioxide 20 L (22-30) mmol/L BUN 41 H (9-20) mg/dL Creatinine 2.9 H (0.8-1.5) mg/dL Glucose 105 H (75-100) mg/dL Calcium 8.4 (8.4-10.2) mg/dL - Imaging and Cardiology EKG: report reviewed (sinus rhythm heart rate of 65 murmur at LVH with secondary repolarization abnormalities. No acute ST-T wave changes)
--- NOTE | 2018-08-17 16:22 | Progress Note ---
Assessment and Plan 1. Acute kidney injury: Vasomotor KEMAL superimposed on CKD. Urine studies and renal US pending. Creatinine level is slightly better. His creatinine was around 2 about 6 months ago. Monitor renal function. Renal prognosis is guarded. Avoid nephrotoxic agents. Meds dosage based on GFR. 2. FEN: Metabolic acidosis, monitor. Volume overload, improving. Hypernatremia, monitor. Monitor lytes. 3. Chest pain. 4. Uncontrolled HTN: BP improving. 5. Anemia: POA. Subjective Date of service: 08/17/18 Interval history: Patient was seen and examined at the bedside. Doing ok. Objective - Vital Signs Vital signs: Vital Signs - 12hr 08/17/18 08/17/18 08/17/18 08:00 08:33 10:00 Temperature 98.4 F Pulse Rate 62 60 60 Respiratory 16 Rate Blood Pressure 149/54 148/54 O2 Sat by Pulse 97 Oximetry 08/17/18 08/17/18 11:57 12:00 Temperature 98.2 F Pulse Rate 57 L Respiratory 14 20 Rate Blood Pressure 150/62 O2 Sat by Pulse 99 Oximetry - General Appearance General appearance: well-developed, appears stated age, other (no distress) EENT: ATNC, PERRL, mucous membranes moist, hearing intact, vision intact Neck: supple Respiratory: Present: Clear to Ascultation Cardiology: regular, S1S2, no murmurs Gastrointestinal: normoactive bowel sounds, no tenderness, no distended Integumentary: no rash, warm and dry Neurologic: no asterixis, alert and oriented x3, other (b/l UE weakness, L > R, FA and hand muscle atrophy noted) Musculoskeletal: other (no edema) - Lab 08/18/18 07:49 08/19/18 05:49 Most recent lab results Calcium 8.4 mg/dL (8.4-10.2) 08/17/18 04:45 23.1 mg/dL (0.1-20.0) H 08/15/18 18:00 123 mmol/L 08/15/18 18:00 97 mg/dL (5-11.8) H 08/15/18 18:00 Medications & Allergies - Medications Allergies/Adverse Reactions: Allergies No Known Allergies Allergy (Verified 02/14/18 10:41) Home Medications: Home Medications Medication Instructions Recorded Confirmed Last Taken Type Famotidine [Pepcid] 20 mg PO DAILY #30 tablet 08/19/18 Unknown Rx Hydralazine HCl 50 mg PO TID #90 tablet 08/19/18 Unknown Rx Losartan [Cozaar] 100 mg PO QDAY #30 tablet 08/19/18 Unknown Rx NIFEdipine XL [Procardia Xl] 90 mg PO QDAY #30 tablet 08/19/18 Unknown Rx Active Medications: Generic Name Dose Route Start Last Admin Trade Name Freq PRN Reason Stop Dose Admin Acetaminophen 650 mg 08/14/18 16:03 Tylenol PO Q4H PRN Pain MILD(1-3)/Fever >100.5/LIRA Enoxaparin Sodium 30 mg 08/14/18 18:00 08/17/18 10:00 Lovenox SUB-Q 30 mg QDAY MICHA Administration Famotidine 20 mg 08/16/18 10:00 08/17/18 10:00 Pepcid PO 20 mg DAILY MICHA Administration Hydralazine HCl 50 mg 08/15/18 11:00 08/17/18 06:10 Apresoline PO 50 mg Q8HR MICHA Administration Hydralazine HCl 20 mg 08/15/18 10:27 Apresoline IV Q4HR PRN SBP>170 or DBP>110 Hydromorphone HCl 0.5 mg 08/14/18 16:03 Dilaudid IV Q3H PRN Pain , Severe (7-10) Losartan Potassium 100 mg 08/14/18 17:00 08/17/18 10:00 Cozaar PO 100 mg QDAY MICHA Administration Nifedipine 90 mg 08/15/18 13:00 08/17/18 10:00 Procardia Xl PO 90 mg QDAY MICHA Administration Ondansetron HCl 4 mg 08/14/18 16:03 Zofran IV Q8H PRN Nausea And Vomiting Sodium Chloride 10 ml 08/14/18 22:00 08/17/18 10:01 Sodium Chloride Flush Syringe 10 Ml IV 10 ml BID MICHA Administration Sodium Chloride 10 ml 08/14/18 16:03 Sodium Chloride Flush Syringe 10 Ml IV PRN PRN LINE FLUSH
[2018-08-18] MEDS: APRESOLINE PO SCH ×3 (05:45→21:58)
[2018-08-18 08:31] LABS: Hematocrit 31.8 % (35.5-45.6); Hemoglobin 10.7 gm/dl (11.8-15.2); Mean Corpuscular HGB Conc 34 % (32-34); Mean Corpuscular Volume 90 fl (84-94); Platelet Count 245 K/mm3 (140-440); Red Blood Count 3.55 M/mm3 (3.65-5.03); Red Cell Distribution Width 15.1 % (13.2-15.2)
[2018-08-18 08:55] LABS: Calcium 8.3 mg/dL (8.4-10.2)
--- NOTE | 2018-08-18 10:20 | XRay Report ---
PROCEDURE: XR ABDOMEN 1V AP TECHNIQUE: Abdominal radiograph, single view. HISTORY: Abdominal pain, distension COMPARISONS: None . FINDINGS: Nonspecific bowel gas pattern with no evidence of bowel obstruction Large amount of stool with residual oral contrast in the colon which may reflect constipation. IMPRESSION: Nonspecific bowel gas pattern with no evidence of bowel obstruction. Large amount of stool in the colon which may reflect constipation. This document is electronically signed by Mikey Camp MD., August 18 2018 10:18:38 AM ET
[2018-08-18] MEDS: PROCARDIA XL PO SCH (11:46)
[2018-08-18] MEDS: PEPCID PO SCH (11:46)
[2018-08-18] MEDS: LOVENOX SUB-Q SCH (11:46)
[2018-08-18] MEDS: COZAAR PO SCH (11:46)
[2018-08-18] MEDS: SODIUM CHLORIDE FLUSH SYRINGE 10 ML IV SCH ×2 (11:47→21:59)
--- NOTE | 2018-08-18 12:03 | Progress Note ---
Assessment and Plan 1. Acute kidney injury: Vasomotor KEMAL superimposed on CKD. Renal US negative for hydro. Renal function is overall stable. His creatinine was around 2 about 6 months ago. Monitor renal function. Renal prognosis is guarded. Avoid nephrotoxic agents. Meds dosage based on GFR. 2. FEN: Metabolic acidosis, monitor. Volume overload, improving. Hypernatremia, better. Monitor lytes. 3. Chest pain. 4. Uncontrolled HTN: BP is better. 5. Anemia: POA. Subjective Date of service: 08/18/18 Interval history: Patient was seen and examined at the bedside. Doing ok. Objective - Vital Signs Vital signs: Vital Signs - 12hr 08/18/18 08/18/18 08/18/18 01:10 01:14 05:45 Temperature 98.6 F Pulse Rate 68 61 Respiratory 18 18 18 Rate Blood Pressure 149/47 Blood Pressure 149/47 139/51 [Right] O2 Sat by Pulse 99 Oximetry 08/18/18 08/18/18 05:50 07:21 Temperature 98.5 F 97.9 F Pulse Rate 57 L Respiratory 18 Rate Blood Pressure 147/47 Blood Pressure [Right] O2 Sat by Pulse 98 Oximetry - General Appearance General appearance: well-developed, appears stated age, other (no distress) EENT: ATNC, PERRL, mucous membranes moist, hearing intact, vision intact Neck: supple Respiratory: Present: Clear to Ascultation Cardiology: regular, S1S2, no murmurs Gastrointestinal: normoactive bowel sounds, no tenderness, no distended Integumentary: no rash, warm and dry Neurologic: no asterixis, alert and oriented x3, other (b/l UE weakness, L > R, FA and hand muscle atrophy noted) Musculoskeletal: other (no edema) - Lab 08/18/18 07:49 08/19/18 05:49 Most recent lab results Calcium 8.3 mg/dL (8.4-10.2) L 08/18/18 07:49 Phosphorus 4.20 mg/dL (2.5-4.5) 08/18/18 07:49 Magnesium 1.90 mg/dL (1.7-2.3) 08/18/18 07:49 23.1 mg/dL (0.1-20.0) H 08/15/18 18:00 123 mmol/L 08/15/18 18:00 97 mg/dL (5-11.8) H 08/15/18 18:00 Medications & Allergies - Medications Allergies/Adverse Reactions: Allergies No Known Allergies Allergy (Verified 02/14/18 10:41) Home Medications: Home Medications Medication Instructions Recorded Confirmed Last Taken Type Famotidine [Pepcid] 20 mg PO DAILY #30 tablet 08/19/18 Unknown Rx Hydralazine HCl 50 mg PO TID #90 tablet 08/19/18 Unknown Rx Losartan [Cozaar] 100 mg PO QDAY #30 tablet 08/19/18 Unknown Rx NIFEdipine XL [Procardia Xl] 90 mg PO QDAY #30 tablet 08/19/18 Unknown Rx Active Medications: Generic Name Dose Route Start Last Admin Trade Name Freq PRN Reason Stop Dose Admin Acetaminophen 650 mg 08/14/18 16:03 Tylenol PO Q4H PRN Pain MILD(1-3)/Fever >100.5/LIRA Enoxaparin Sodium 30 mg 08/14/18 18:00 08/18/18 11:46 Lovenox SUB-Q 30 mg QDAY MICHA Administration Famotidine 20 mg 08/16/18 10:00 08/18/18 11:46 Pepcid PO 20 mg DAILY MICHA Administration Hydralazine HCl 50 mg 08/15/18 11:00 08/18/18 05:45 Apresoline PO 50 mg Q8HR MICHA Administration Hydralazine HCl 20 mg 08/15/18 10:27 Apresoline IV Q4HR PRN SBP>170 or DBP>110 Hydromorphone HCl 0.5 mg 08/14/18 16:03 Dilaudid IV Q3H PRN Pain , Severe (7-10) Losartan Potassium 100 mg 08/14/18 17:00 08/18/18 11:46 Cozaar PO 100 mg QDAY MICHA Administration Nifedipine 90 mg 08/15/18 13:00 08/18/18 11:46 Procardia Xl PO 90 mg QDAY MICHA Administration Ondansetron HCl 4 mg 08/14/18 16:03 Zofran IV Q8H PRN Nausea And Vomiting Sodium Chloride 10 ml 08/14/18 22:00 08/18/18 11:47 Sodium Chloride Flush Syringe 10 Ml IV 10 ml BID MICHA Administration Sodium Chloride 10 ml 08/14/18 16:03 Sodium Chloride Flush Syringe 10 Ml IV PRN PRN LINE FLUSH
[2018-08-18] MEDS ORDERED: MIRALAX 3350 PO PRN (12:47)
--- NOTE | 2018-08-18 13:13 | Progress Note ---
Assessment and Plan - Patient Problems (1) Hypertensive emergency Current Visit: Yes Status: Acute Plan to address problem: Blood pressure control is improved, currently 140 systolic on Procardia XL. Subjective Date of service: 08/18/18 Interval history: Patient is comfortable, no new cardiac complaints. Objective Vital Signs Temp Pulse Resp BP BP Pulse Ox 08/18/18 07:21 97.9 F 57 L 18 147/47 98 08/18/18 05:50 98.5 F 08/18/18 05:45 61 18 139/51 99 08/18/18 01:14 18 149/47 08/18/18 01:10 98.6 F 68 18 149/47 08/17/18 20:30 58 L 08/17/18 19:50 54 L 18 158/60 100 08/17/18 19:48 98.3 F 58 L 18 158/60 98 08/17/18 16:09 98.1 F 53 L 16 141/51 100 08/17/18 16:00 60 08/17/18 14:00 60 146/60 - Physical Examination General: No Apparent Distress HEENT: Positive: PERRL Neck: Positive: neck supple, trachea midline Cardiac: Positive: Reg Rate and Rhythm Lungs: Positive: Decreased Breath Sounds Neuro: Positive: Weakness Abdomen: Positive: Soft Skin: Positive: Clear Musculoskeletal: other (generalized muscle atrophy) Extremities: Absent: edema - Labs and Meds CBC 08/18/18 Range/Units 07:49 WBC 4.3 L (4.5-11.0) K/mm3 RBC 3.55 L (3.65-5.03) M/mm3 Hgb 10.7 L (11.8-15.2) gm/dl Hct 31.8 L (35.5-45.6) % Plt Count 245 (140-440) K/mm3 Comprehensive Metabolic Panel 08/18/18 Range/Units 07:49 Sodium 144 (137-145) mmol/L Potassium 4.6 (3.6-5.0) mmol/L Chloride 110.9 H (98-107) mmol/L Carbon Dioxide 18 L (22-30) mmol/L BUN 42 H (9-20) mg/dL Creatinine 3.0 H (0.8-1.5) mg/dL Glucose 111 H (75-100) mg/dL Calcium 8.3 L (8.4-10.2) mg/dL - Imaging and Cardiology EKG: report reviewed (sinus rhythm heart rate of 65 murmur at LVH with secondary repolarization abnormalities. No acute ST-T wave changes)
--- NOTE | 2018-08-18 14:40 | Progress Note ---
Assessment and Plan Assessment and plan: Chest pain admitted to Tele Non cardiac Normal stress test 01/27 Normal cath in [address] Abd done report pending Had bowel movement yesterday KUB shows constipation ordered Miralax hypertensive emergency On Hydralazine, cozar, nidfedipine Diabetes mellitus type 2. accucheck qaac and hs Bradycardia KEMAL on CKD Cr 3.0 today Nephrology following Seizure disorder Hypernatremia Monitor Charcot Jessica Tooth disease Full code status History Interval history: Chest pain resolved No shortness of breath Abd pain, had bowel movement yesterday Hospitalist Physical - Physical exam Narrative exam: Gen: Not in acute distress, lying in bed, HEENT: Normocephalic, atraumatic Neck: supple, no JVD Heart: S1 and S2 reg, no murmurs, rubs or gallop Lungs: Clear, no crackles, no wheeze Abd: soft, mild tender, no rebound, normal BS Ext: No edema, no clubbing, no cyanosis, Neuro: Awake,alert, oriented x 3, moves all ext - Constitutional Vitals: Temp Pulse Resp BP Pulse Ox 97.9 F 57 L 18 147/47 98 08/18/18 07:21 08/18/18 07:21 08/18/18 07:21 08/18/18 07:21 08/18/18 07:21 General appearance: Present: no acute distress, well-nourished Results - Labs CBC & Chem 7: 08/18/18 07:49 08/18/18 07:49 Labs: Laboratory Last Values WBC 4.3 K/mm3 (4.5-11.0) L 08/18/18 07:49 RBC 3.55 M/mm3 (3.65-5.03) L 08/18/18 07:49 Hgb 10.7 gm/dl (11.8-15.2) L 08/18/18 07:49 Hct 31.8 % (35.5-45.6) L 08/18/18 07:49 MCV 90 fl (84-94) 08/18/18 07:49 MCH 30 pg (28-32) 08/18/18 07:49 MCHC 34 % (32-34) 08/18/18 07:49 RDW 15.1 % (13.2-15.2) 08/18/18 07:49 Plt Count 245 K/mm3 (140-440) 08/18/18 07:49 Lymph % (Auto) 30.0 % (13.4-35.0) 08/15/18 05:38 [place] % (Auto) 8.4 % (0.0-7.3) H 08/15/18 05:38 Eos % (Auto) 3.0 % (0.0-4.3) 08/15/18 05:38 Baso % (Auto) 1.2 % (0.0-1.8) 08/15/18 05:38 Lymph # 1.1 K/mm3 (1.2-5.4) L 08/15/18 05:38 [place] # 0.3 K/mm3 (0.0-0.8) 08/15/18 05:38 Eos # 0.1 K/mm3 (0.0-0.4) 08/15/18 05:38 Baso # 0.0 K/mm3 (0.0-0.1) 08/15/18 05:38 Seg Neutrophils % 57.4 % (40.0-70.0) 08/15/18 05:38 Seg Neutrophils # 2.0 K/mm3 (1.8-7.7) 08/15/18 05:38 PT 14.3 Sec. (12.2-14.9) 08/14/18 08:55 INR 1.05 (0.87-1.13) 08/14/18 08:55 APTT 28.4 Sec. (24.2-36.6) 08/14/18 08:55 Sodium 144 mmol/L (137-145) 08/18/18 07:49 Potassium 4.6 mmol/L (3.6-5.0) 08/18/18 07:49 Chloride 110.9 mmol/L (98-107) H 08/18/18 07:49 Carbon Dioxide 18 mmol/L (22-30) L 08/18/18 07:49 20 mmol/L 08/18/18 07:49 BUN 42 mg/dL (9-20) H 08/18/18 07:49 3.0 mg/dL (0.8-1.5) H 08/18/18 07:49 Estimated GFR 25 ml/min 08/18/18 07:49 14 % 08/18/18 07:49 Glucose 111 mg/dL (75-100) H 08/18/18 07:49 4.2 % (4-6) 08/14/18 08:55 Calcium 8.3 mg/dL (8.4-10.2) L 08/18/18 07:49 Phosphorus 4.20 mg/dL (2.5-4.5) 08/18/18 07:49 Magnesium 1.90 mg/dL (1.7-2.3) 08/18/18 07:49 Iron 55 ug/dL (49-181) 08/14/18 20:18 TIBC 175 mcg/dL (250-450) L 08/14/18 20:18 % Saturation 31.43 % 08/14/18 20:18 162 mg/dl (180-329) L 08/14/18 20:18 0.40 mg/dL (0.1-1.2) 08/15/18 05:38 AST 11 units/L (5-40) 08/15/18 05:38 ALT 7 units/L (7-56) 08/15/18 05:38 76 units/L (35-129) 08/15/18 05:38 0.023 ng/mL (0.00-0.029) 08/14/18 22:50 5.8 g/dL (6.3-8.2) L 08/15/18 05:38 3.0 g/dL (3.9-5) L 08/15/18 05:38 1.1 % 08/15/18 05:38 40 units/L (13-60) 08/14/18 08:55 Vitamin B12 554.7 pg/mL (211-911) 08/14/18 20:18 PTH Intact 136.5 pg/mL (15-65) H 08/15/18 05:38 Straw (Yellow) 08/14/18 Unknown Clear (Clear) 08/14/18 Unknown 5.0 (5.0-7.0) 08/14/18 Unknown Ur Specific [place] 1.010 (1.003-1.030) 08/14/18 Unknown 100 mg/dl mg/dL (Negative) 08/14/18 Unknown Neg mg/dL (Negative) 08/14/18 Unknown Neg mg/dL (Negative) 08/14/18 Unknown Sm (Negative) 08/14/18 Unknown Neg (Negative) 08/14/18 Unknown Neg (Negative) 08/14/18 Unknown < 2.0 mg/dL (<2.0) 08/14/18 Unknown Ur Leukocyte Esterase Neg (Negative) 08/14/18 Unknown < 1.0 /HPF (0.0-6.0) 08/14/18 Unknown < 1.0 /HPF (0.0-6.0) 08/14/18 Unknown 23.1 mg/dL (0.1-20.0) H 08/15/18 18:00 Protein/Creatinin Ratio 4.20 08/15/18 18:00 123 mmol/L 08/15/18 18:00 97 mg/dL (5-11.8) H 08/15/18 18:00 Presumptive negative 08/14/18 Unknown Presumptive negative 08/14/18 Unknown Ur Barbiturates Screen Presumptive negative 08/14/18 Unknown Ur Phencyclidine Scrn Presumptive negative 08/14/18 Unknown Ur Amphetamines Screen Presumptive negative 08/14/18 Unknown U Benzodiazepines Scrn Presumptive negative 08/14/18 Unknown Presumptive negative 08/14/18 Unknown U Marijuana (THC) Screen Presumptive negative 08/14/18 Unknown Disclamer 08/14/18 Unknown Active Medications - Current Medications Current Medications: Generic Name Dose Route Start Last Admin Trade Name Freq PRN Reason Stop Dose Admin Acetaminophen 650 mg 08/14/18 16:03 Tylenol PO Q4H PRN Pain MILD(1-3)/Fever >100.5/LIRA Enoxaparin Sodium 30 mg 08/14/18 18:00 08/18/18 11:46 Lovenox SUB-Q 30 mg QDAY MICHA Administration Famotidine 20 mg 08/16/18 10:00 08/18/18 11:46 Pepcid PO 20 mg DAILY MICHA Administration Hydralazine HCl 50 mg 08/15/18 11:00 08/18/18 05:45 Apresoline PO 50 mg Q8HR MICHA Administration Hydralazine HCl 20 mg 08/15/18 10:27 Apresoline IV Q4HR PRN SBP>170 or DBP>110 Hydromorphone HCl 0.5 mg 08/14/18 16:03 Dilaudid IV Q3H PRN Pain , Severe (7-10) Losartan Potassium 100 mg 08/14/18 17:00 08/18/18 11:46 Cozaar PO 100 mg QDAY MICHA Administration Nifedipine 90 mg 08/15/18 13:00 08/18/18 11:46 Procardia Xl PO 90 mg QDAY MICHA Administration Ondansetron HCl 4 mg 08/14/18 16:03 Zofran IV Q8H PRN Nausea And Vomiting Polyethylene Glycol 17 gm 08/18/18 12:47 Miralax 3350 PO BID PRN Constipation Sodium Chloride 10 ml 08/14/18 22:00 08/18/18 11:47 Sodium Chloride Flush Syringe 10 Ml IV 10 ml BID MICHA Administration Sodium Chloride 10 ml 08/14/18 16:03 Sodium Chloride Flush Syringe 10 Ml IV PRN PRN LINE FLUSH Nutrition/Malnutrition Assess - Dietary Evaluation Nutrition/Malnutrition Findings: Nutrition Notes Start: 08/15/18 15:45 Freq: Status: Active Protocol: Document 08/17/18 15:21 RM (Rec: 08/17/18 15:24 RM [id number]) Nutrition Notes Initial or Follow up Brief Note Current Diagnosis Acute Kidney Injury,Diabetes, Hypertension Other Pertinent Diagnosis Hx CVA, Jessica tooth disease Current Diet Cardiac Labs/Tests Reviewed Pertinent Medications Reviewed Height 5 ft 7 in Usual Body Weight 72.72 kg [place] Body Weight (kg) 67.27 Subjective/Other Information Pt stated that his appetite is good and that he eats all of his meals. Stated UBW is 160 lbs. No temporal or orbital wasting . Burn Absent Trauma Absent Nutrition Intervention Revisit per MD consult or patient Sign Off request:
[2018-08-19] MEDS: APRESOLINE PO SCH (05:45)
[2018-08-19 06:45] LABS: Calcium 8.7 mg/dL (8.4-10.2)
[2018-08-19 09:07] VITALS: BP 168/68
[2018-08-19] MEDS: DILAUDID IV PRN ×2 (10:19→14:29)
[2018-08-19] MEDS: SODIUM CHLORIDE FLUSH SYRINGE 10 ML IV SCH (10:27)
[2018-08-19] MEDS: LOVENOX SUB-Q SCH (10:29)
[2018-08-19] MEDS: PROCARDIA XL PO SCH (10:30)
[2018-08-19] MEDS: PEPCID PO SCH (10:30)
[2018-08-19] MEDS: COZAAR PO SCH (10:30)
--- NOTE | 2018-08-19 10:51 | Progress Note ---
Assessment and Plan Uncontrolled hypertension -improved Atypical chest pain No ischemia by MPI 01/2018 No ischemia by MPI 05/2017 Normal coronaries by [facility] in 2013 Acute renal failure Abdominal pain s/t constipation Normal LVEF, 65% by echo 01/2018. Continue optimal blood pressure management. Otherwise, conservative cardiac management. Subjective Date of service: 08/19/18 Interval history: Patient complains of left hand pain and edema. Objective Vital Signs Temp Pulse Resp BP Pulse Ox 08/19/18 08:19 97.9 F 18 168/68 08/19/18 04:50 98.2 F 63 18 172/68 99 08/19/18 00:04 98.1 F 77 18 147/75 99 08/18/18 19:45 59 L 08/18/18 19:14 97.8 F 59 L 18 124/47 98 08/18/18 16:25 97.9 F 59 L 18 159/52 98 08/18/18 12:12 97.9 F 54 L 16 176/69 96 - Physical Examination General: No Apparent Distress HEENT: Positive: PERRL Neck: Positive: trachea midline Cardiac: Positive: Reg Rate and Rhythm Lungs: Positive: Decreased Breath Sounds Neuro: Positive: Weakness Abdomen: Positive: Soft Skin: Positive: Clear Musculoskeletal: other (generalized muscle atrophy) Extremities: Absent: edema - Labs and Meds Comprehensive Metabolic Panel 08/19/18 Range/Units 05:49 Sodium 145 (137-145) mmol/L Potassium 4.5 (3.6-5.0) mmol/L Chloride 114.2 H (98-107) mmol/L Carbon Dioxide 19 L (22-30) mmol/L BUN 41 H (9-20) mg/dL Creatinine 3.0 H (0.8-1.5) mg/dL Glucose 105 H (75-100) mg/dL Calcium 8.7 (8.4-10.2) mg/dL - Imaging and Cardiology EKG: report reviewed (sinus rhythm heart rate of 65 murmur at LVH with secondary repolarization abnormalities. No acute ST-T wave changes)
[2018-08-19] MEDS ORDERED: CARDURA PO SCH (11:00)
--- NOTE | 2018-08-19 11:54 | Cat Scan Report ---
PROCEDURE: CT ABDOMEN PELVIS WO CON TECHNIQUE: Noncontrast CT of the abdomen and pelvis was performed. Oral contrast administered. No IV contrast administered. Axial images and coronal and sagittal reformatted images were obtained. HISTORY: Abdominal pain COMPARISON: 02/14/2018 FINDINGS: The visualized lung bases are clear. Within the limitations of a noncontrast exam, the visualized liver, spleen, pancreas, adrenal glands and kidneys demonstrate no significant abnormality. There are aortoiliac atherosclerotic calcifications. There is no abdominal aortic aneurysm. There is no evidence for intestinal obstruction. The appendix is not visualized. There is no abnormal fluid collection seen. There is no free intraperitoneal air. There is unchanged prostate enlargement. The bladder is unremarkable. There are minimal inguinal containing nondilated bowel bilaterally. This is unchanged. IMPRESSION: No acute abnormality seen. There are unchanged very small bowel containing inguinal hernias bilaterally. Unchanged prostate enlargement. This document is electronically signed by Joya Horn MD., August 19 2018 11:52:04 AM ET
--- NOTE | 2018-08-19 12:17 | Progress Note ---
Assessment and Plan 1. Acute kidney injury: Vasomotor KEMAL superimposed on CKD. Renal US negative for hydro. Renal function is overall stable. His creatinine was around 2 about 6 months ago. Likely new baseline. CKD stage 4. Monitor renal function. Renal prognosis is guarded. Avoid nephrotoxic agents. Meds dosage based on GFR. 2. FEN: Metabolic acidosis, monitor. Volume overload, improving. Hypernatremia, better. Monitor lytes. 3. Chest pain. 4. Uncontrolled HTN: BP is better. 5. Anemia: POA. F/u with me in 2-3 weeks. Subjective Date of service: 08/19/18 Interval history: Patient was seen and examined at the bedside. Doing ok. Objective - Vital Signs Vital signs: Vital Signs - 12hr 08/19/18 08/19/18 04:50 08:19 Temperature 98.2 F 97.9 F Pulse Rate 63 Respiratory 18 18 Rate Blood Pressure 172/68 168/68 O2 Sat by Pulse 99 Oximetry - General Appearance General appearance: well-developed, appears stated age, other (no distress) EENT: ATNC, PERRL, mucous membranes moist, hearing intact, vision intact Neck: supple Respiratory: Present: Clear to Ascultation Cardiology: regular, S1S2, no murmurs Gastrointestinal: normoactive bowel sounds, no tenderness, no distended Integumentary: no rash, warm and dry Neurologic: no asterixis, alert and oriented x3, other (b/l UE weakness, L > R, L LE weakness noted, FA and hand muscle atrophy noted) Musculoskeletal: other (no edema) Psychiatric: cooperative - Lab 08/18/18 07:49 08/19/18 05:49 Most recent lab results Calcium 8.7 mg/dL (8.4-10.2) 08/19/18 05:49 Phosphorus 4.20 mg/dL (2.5-4.5) 08/18/18 07:49 Magnesium 1.90 mg/dL (1.7-2.3) 08/18/18 07:49 23.1 mg/dL (0.1-20.0) H 08/15/18 18:00 123 mmol/L 08/15/18 18:00 97 mg/dL (5-11.8) H 08/15/18 18:00 Medications & Allergies - Medications Allergies/Adverse Reactions: Allergies No Known Allergies Allergy (Verified 02/14/18 10:41) Home Medications: Home Medications Medication Instructions Recorded Confirmed Last Taken Type Famotidine [Pepcid] 20 mg PO DAILY #30 tablet 08/19/18 Unknown Rx Hydralazine HCl 50 mg PO TID #90 tablet 08/19/18 Unknown Rx Losartan [Cozaar] 100 mg PO QDAY #30 tablet 08/19/18 Unknown Rx NIFEdipine XL [Procardia Xl] 90 mg PO QDAY #30 tablet 08/19/18 Unknown Rx Active Medications: Generic Name Dose Route Start Last Admin Trade Name Freq PRN Reason Stop Dose Admin Acetaminophen 650 mg 08/14/18 16:03 Tylenol PO Q4H PRN Pain MILD(1-3)/Fever >100.5/LIRA Doxazosin Mesylate 2 mg 08/19/18 11:00 08/19/18 10:41 Cardura PO 2 mg BID MICHA Administration Enoxaparin Sodium 30 mg 08/14/18 18:00 08/19/18 10:29 Lovenox SUB-Q 30 mg QDAY MICHA Administration Famotidine 20 mg 08/16/18 10:00 08/19/18 10:30 Pepcid PO 20 mg DAILY MICHA Administration Hydralazine HCl 20 mg 08/15/18 10:27 Apresoline IV Q4HR PRN SBP>170 or DBP>110 Hydromorphone HCl 0.5 mg 08/14/18 16:03 08/19/18 10:19 Dilaudid IV 0.5 mg Q3H PRN Administration Pain , Severe (7-10) Losartan Potassium 100 mg 08/14/18 17:00 08/19/18 10:30 Cozaar PO 100 mg QDAY MICHA Administration Nifedipine 90 mg 08/15/18 13:00 08/19/18 10:30 Procardia Xl PO 90 mg QDAY MICHA Administration Ondansetron HCl 4 mg 08/14/18 16:03 Zofran IV Q8H PRN Nausea And Vomiting Polyethylene Glycol 17 gm 08/18/18 12:47 Miralax 3350 PO BID PRN Constipation Sodium Chloride 10 ml 08/14/18 22:00 08/19/18 10:27 Sodium Chloride Flush Syringe 10 Ml IV 10 ml BID MICHA Administration Sodium Chloride 10 ml 08/14/18 16:03 Sodium Chloride Flush Syringe 10 Ml IV PRN PRN LINE FLUSH
--- NOTE | 2018-08-19 16:10 | Discharge Summary ---
Providers - Providers Date of Admission: 08/16/18 09:26 Date of discharge: 08/19/18 Attending physician: CORA JASSO 08/14/18 Consult to Case Management [CONS] Routine Services Needed at Discharge: Home Health Services Notified:: CASE MANAGEMENT 08/14/18 16:33 Consult to Physician [CONS] Routine Comment: [facility] @1658 TO ADV CONSULT IN PER DR GONZALEZ Consulting Provider: BERTA VAUGHN Physician Instructions: Reason For Exam: KEMAL/CkD 08/14/18 16:36 Consult to Physician [CONS] Routine Comment: [facility] @1702 TO ADV CONSULT IN PER DR GONZALEZ Consulting Provider: FREDI GREEN Physician Instructions: Reason For Exam: chest pain [facility] Condition: [facility] Hospital course: Patient is 72-year-old -[place] male who is frail with history of Charcot Jessica Tooth disease , hypertension, 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 Patient is a very poor historian. He was seen and evaluated in ED. Troponins were negative, Creatinine was elevated at 2.8. He was admitted for ch est pain to rule out acute coronary syndrome and also to evaluate elevated Creatinine. Chest pain Non cardiac, due to GERD Normal stress test 01/27 Normal cath in [address] Abd unremarkable,KUB shows constipation ordered Miralax hypertensive emergency On Hydralazine, cozar, nidfedipine Diabetes mellitus type 2. accucheck qaac and hs Bradycardia KEMAL on CKD Cr 3.0 today Nephrology following Seizure disorder Hypernatremia Monitor Charcot Jessica Tooth disease He was seen by Nephrology. Creatinine remained elevated but stable so was discharged home on 08/19/18 to follow as outpatient. Disposition: [id number] HOME UNDER HOME HLTH - Discharge Diagnoses (1) GERD (gastroesophageal reflux disease) Status: Acute (2) Hypertensive urgency Status: Acute (3) Acute chest pain Status: Acute (4) Acute kidney injury Status: Acute (5) [id number] renal failure Status: Acute Qualifiers: (6) Bradycardia Status: Acute (7) Nwkrtir-Mvwdh-Wtlhz disease Status: Chronic (8) HTN (hypertension) Status: Chronic (9) History of seizures Status: Chronic (10) Hyperlipidemia Status: Chronic (11) Type 2 diabetes mellitus Status: Chronic Qualifiers: Diabetes mellitus jail insulin use: without jail use Diabetes mellitus complication status: without complication Qualified Code(s): E11.9 - Type 2 diabetes mellitus without complications Core Measure Documentation - Palliative Care Palliative Care/ Comfort Measures: Not Applicable - Core Measures Any of the following diagnoses?: none Exam - Constitutional Vitals: Temp Pulse Resp BP Pulse Ox 97.9 F 69 18 168/68 99 08/19/18 08:19 08/19/18 11:00 08/19/18 08:19 08/19/18 08:19 08/19/18 04:50 Plan Activity: no restrictions Diet: low fat, low cholesterol, low salt, renal Additional Instructions: 1.Follow up with PCP in 1 week. 2.Follow up with Dr. Vaughn, Nephrology in 1 week [facility] - 3-5 Days Prescriptions: Losartan [Cozaar] 100 mg PO QDAY #30 tablet Hydralazine HCl 50 mg PO TID #90 tablet Famotidine [Pepcid] 20 mg PO DAILY #30 tablet NIFEdipine XL [Procardia Xl] 90 mg PO QDAY #30 tablet
[2018-08-19 20:53] LABS: Gamma Globulin 1.1 g/dL (0.8-1.7); Myeloperoxidase Antibody <1.0 AI (<1.0)
[2018-08-21 20:58] LABS: ANA Screen, IFA Negative (Negative)
== END 2018-08-19 19:45 | disposition home health service (06) | DRG 304 ==
LOC: ED 07:36 → 4A 16:03 → OBSVTOIN 08-16 09:26
PROVIDERS: ADMIT Internal Medicine; ATTEND Internal Medicine
DX: I16.1 Hypertensive emergency (principal); N17.0 Acute kidney failure with tubular necrosis; E87.0 Hyperosmolality and hypernatremia; I69.354 Hemiplegia and hemiparesis following cerebral infarction affecting left non-dominant side; E87.2 Acidosis; N18.4 Chronic kidney disease, stage 4 (severe); G60.0 Hereditary motor and sensory neuropathy; M19.90 Unspecified osteoarthritis, unspecified site; E11.22 Type 2 diabetes mellitus with diabetic chronic kidney disease; D63.1 Anemia in chronic kidney disease; R00.1 Bradycardia, unspecified; G40.909 Epilepsy, unspecified, not intractable, without status epilepticus; I12.9 Hypertensive chronic kidney disease with stage 1 through stage 4 chronic kidney disease, or unspecified chronic kidney disease
CPT/HCPCS: 36415; 71045; 74018; 74176; 76770; 80048; 80053; 80307; 81001; 82570; 82607; 82747; 83036; 83550; 83690; 83735; 83970; 84100; 84156; 84165; 84300; 84484; 85025; 85027; 85610; 85730; 86021; 86038; 86160; 93005; 93010; 96360; G0378; J0360; J1170; J1650; J1940; J7030

== ENCOUNTER 2018-10-31 14:37 | Observation (INO) | payer MEDICARE ==
[2018-10-31] MEDS ORDERED: BABY ASPIRIN PO ONE (15:44)
[2018-10-31] MEDS ORDERED: LIDOCAINE VISCOUS 2% PO ONE (15:45)
[2018-10-31] MEDS ORDERED: ALUM-MAG HYDROX-SIMETH 200-200-20MG/5ML PO ONE (15:45)
--- NOTE | 2018-10-31 15:49 | Emergency Department Report ---
ED Chest Pain HPI - General Chief Complaint: Chest Pain Stated Complaint: ABD/CHEST PAIN Time Seen by Provider: 10/31/18 15:35 Source: patient Mode of arrival: Stretcher Limitations: Physical Limitation - History of Present Illness Initial Comments: Patient is 72 years old male with history of hypertension, diabetes and left CVA with residual. Patient presented to the ER complaining of left-sided chest pain, pressure in nature with no radiation. Patient stated that pain started after he ate some grits this morning. Patient denied any shortness of breath. He also denied any vomiting or diarrhea. No fever or chills. Patient had a normal cardiac cath in June 2013. MD Complaint: chest pain -: This morning Onset: after eating Pain Location: substernal, left chest Pain Radiation: none Severity: moderate Severity scale (0 -10): 4 Quality: heaviness, pressure Improves With: nothing Worsens With: nothing - Related Data Previous Rx's Medication Instructions Recorded Last Taken Type Famotidine [Pepcid] 20 mg PO DAILY #30 tablet 08/19/18 Unknown Rx Hydralazine HCl 50 mg PO TID #90 tablet 08/19/18 Unknown Rx Losartan [Cozaar] 100 mg PO QDAY #30 tablet 08/19/18 Unknown Rx NIFEdipine XL [Procardia Xl] 90 mg PO QDAY #30 tablet 08/19/18 Unknown Rx Allergies Allergy/AdvReac Type Severity Reaction Status Date / Time No Known Allergies Allergy Verified 10/31/18 14:50 Heart Score - HEART Score History: Moderately suspicious EKG: Non-specific Age: > 65 Risk factors: > 3 risk factors or hx of atherosclerotic disease Troponin: < normal limit HEART Score: 6 - Critical Actions Critical Actions: 4-6 pts:12-16.6% risk of adverse cardiac event. Should be admitted ED Review of Systems ROS: Stated complaint: ABD/CHEST PAIN Other details as noted in HPI Comment: All other systems reviewed and negative Constitutional: denies: chills, fever Respiratory: denies: cough, orthopnea, shortness of breath, SOB with exertion, SOB at rest, wheezing Cardiovascular: chest pain. 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 - Surgical History Hx Pacemaker: No Hx Internal Defibrillator: No Additional Surgical History: Right shoulder surgery - Social History Smoking Status: Never Smoker Substance Use Type: Alcohol - Medications Home Medications: Home Medications Medication Instructions Recorded Confirmed Last Taken Type Famotidine [Pepcid] 20 mg PO DAILY #30 tablet 08/19/18 Unknown Rx Hydralazine HCl 50 mg PO TID #90 tablet 08/19/18 Unknown Rx Losartan [Cozaar] 100 mg PO QDAY #30 tablet 08/19/18 Unknown Rx NIFEdipine XL [Procardia Xl] 90 mg PO QDAY #30 tablet 08/19/18 Unknown Rx ED Physical Exam - General Limitations: Physical Limitation General appearance: alert, in no apparent distress - Head Head exam: Present: atraumatic, normocephalic, normal inspection - Eye Eye exam: Present: normal appearance, PERRL - ENT ENT exam: Present: normal exam, normal orophraynx, mucous membranes moist - Neck Neck exam: Present: normal inspection, full ROM. Absent: tenderness, meningismus, lymphadenopathy, thyromegaly - Respiratory Respiratory exam: Present: normal lung sounds bilaterally - Cardiovascular Cardiovascular Exam: Present: regular rate, normal rhythm, normal heart sounds - GI/Abdominal GI/Abdominal exam: Present: soft, normal bowel sounds. Absent: distended, tenderness, guarding, rebound, rigid, organomegaly, mass, bruit, pulsatile mass - Extremities Exam Extremities exam: Present: normal inspection, full ROM, normal capillary refill. Absent: pedal edema, calf tenderness - Back Exam Back exam: Present: normal inspection, full ROM. Absent: CVA tenderness (R), CVA tenderness (L) - Neurological Exam Neurological exam: Present: alert, oriented X3, CN II-XII intact, motor sensory deficit (left upper and lower extremity weakness, chronic from previous CVA) - Skin Skin exam: Present: warm, intact, normal color ED Course Vital Signs 10/31/18 14:50 Temperature 98.4 F Pulse Rate 57 L Respiratory 16 Rate Blood Pressure 178/70 O2 Sat by Pulse 99 Oximetry GUTIERREZ score - Gutierrez Score Age > 65: (1) Yes Aspirin use within the Past 7 Days: (1) Yes 3 or more CAD Risk Factors: (1) Yes 2 or more Angina events in past 24 hrs: (0) No Known CAD with more than 50% Stenosis: (0) No Elevated Cardiac Markers: (0) No ST Deviation Greater than 0.5mm: (0) No GUTIERREZ Score: 3 ED Medical Decision Making - Lab Data Result diagrams: 10/31/18 15:55 10/31/18 15:55 - EKG Data -: EKG Interpreted by Me EKG shows normal: sinus rhythm Rate: bradycardia - EKG Data Interpretation: no acute changes - Radiology Data Radiology results: report reviewed - Medical Decision Making Patient is 72 years old male with history of hypertension, diabetes and left CVA with residual. Patient presented to the ER complaining of left-sided chest pain, pressure in nature with no radiation. Patient stated that pain started after he ate some grits this morning. Patient denied any shortness of breath. He also denied any vomiting or diarrhea. No fever or chills. Patient had a normal cardiac cath in June 2013. EKG shows sinus bradycardia with no ST elevation. First set of troponin is negative. Chest x-ray is unremarkable. I discussed the patient was Dr. Ortiz for admission. Critical care attestation.: If time is entered above; I have spent that time in minutes in the direct care of this critically ill patient, excluding procedure time. ED Disposition Clinical Impression: Chest pain Disposition: [id number] OP ADMIT IP TO THIS HOSP Is pt being admited?: Yes Condition: Stable Instructions: Chest Pain (ED)
[2018-10-31 16:13] LABS: Basophils % (Auto) 0.8 % (0.0-1.8); Eosinophils # (Auto) 0.1 K/mm3 (0.0-0.4); Eosinophils % (Auto) 2.2 % (0.0-4.3); Hematocrit 27.7 % (35.5-45.6); Hemoglobin 9.5 gm/dl (11.8-15.2); Lymphocytes # (Auto) 1.7 K/mm3 (1.2-5.4); Lymphocytes % (Auto) 36.3 % (13.4-35.0); Mean Corpuscular HGB Conc 34 % (32-34); Mean Corpuscular Volume 91 fl (84-94); Monocytes # (Auto) 0.4 K/mm3 (0.0-0.8); Monocytes % (Auto) 9.1 % (0.0-7.3); Platelet Count 242 K/mm3 (140-440); Red Blood Count 3.05 M/mm3 (3.65-5.03)
[2018-10-31 16:24] LABS: INR 1.07 (0.87-1.13)
[2018-10-31 16:24] LABS: Calcium 8.3 mg/dL (8.4-10.2)
[2018-10-31 16:25] LABS: Partial Thromboplastin Time 24.1 Sec. (24.2-36.6)
--- NOTE | 2018-10-31 16:57 | XRay Report ---
CHEST 2 VIEWS INDICATION / CLINICAL INFORMATION: Chest Pain. COMPARISON: Chest x-ray on 08/14/2018. FINDINGS: SUPPORT DEVICES: None. HEART / MEDIASTINUM: Stable mild cardiomegaly. LUNGS / PLEURA: No significant pulmonary or pleural abnormality. No pneumothorax. ADDITIONAL FINDINGS: No significant additional findings. IMPRESSION: 1. No acute findings. Signer Name: All Bear MD Signed: 10/31/2018 4:53 PM Workstation Name: [id number]
--- NOTE | 2018-10-31 17:21 | History and Physical Report ---
History of Present Illness Chief complaint: My chest hurts, and i been sick lately History of present illness: 72 YO Male with HTN, TB Exposure 40 years ago, HLD, DM, CVA with RHP, ETOH Dependence, Seizure Disorder presents to ED for evaluation. Pt states that he has experienced pain in his chest over the past 1 day with acutely worsening symptoms that began this morning after eating breakfast. Pt states that pain is 4-6/10,substernal, intermittent, localized to the left chest, not worsened with exertion, not relieved with rest. Pt denies fever, chills, palpitations, NVD, Syncope, BRBPR, Trauma, shortness of breath, productive cough, prolonged travel/immobility, individual/family history of DVT/PE/Bleeding/Blood Clotting Disorders, Skin rash, or recent ill contacts. EMS Notified, and upon arrival the patient was found to have Angina. Pt transported to [facility] for further care and evaluation. Pt seen and evaluated in ED and found to have symptoms consistent with ACS, As well as Diastolic CHF, and Acute Kidney Injury. Pt admitted to telemetry. Cardiology consulted in ED. Past History Past Medical History: diabetes, hypertension, hyperlipidemia, seizures, stroke, other (ETOH Dependence) Past Surgical History: Other (Right Shoulder) Social history: single, alcohol abuse Family history: hypertension Medications and Allergies Allergies Allergy/AdvReac Type Severity Reaction Status Date / Time No Known Allergies Allergy Verified 10/31/18 14:50 Home Medications Medication Instructions Recorded Confirmed Last Taken Type Famotidine [Pepcid] 20 mg PO DAILY #30 tablet 08/19/18 Unknown Rx Hydralazine HCl 50 mg PO TID #90 tablet 08/19/18 Unknown Rx Losartan [Cozaar] 100 mg PO QDAY #30 tablet 08/19/18 Unknown Rx NIFEdipine XL [Procardia Xl] 90 mg PO QDAY #30 tablet 08/19/18 Unknown Rx Review of Systems Constitutional: no weight loss, no weight gain, no fever, no chills Ears, nose, mouth and throat: no ear pain, no ear discharge, no tinnitis, no decreased hearing, no nose pain, no nasal congestion Cardiovascular: chest pain Respiratory: no cough, no cough with sputum, no excessive sputum, no hemoptysis, no shortness of breath Gastrointestinal: no nausea, no vomiting, no diarrhea, no constipation, no change in bowel habits Genitourinary Male: no hematuria, no flank pain, no discharge, no urinary frequency, no urinary hesitancy Rectal: no pain, no incontinence, no bleeding Musculoskeletal: no neck stiffness, no neck pain, no shooting arm pain, no arm numbness/tingling, no low back pain, no shooting leg pain Integumentary: no rash, no pruritis, no redness, no sores, no wounds, no jaundice Neurological: no transient paralysis, no paralysis, no weakness, no parathesias, no numbness, no tingling Psychiatric: no anxiety, no memory loss, no sleep disturbances, no insomnia, no change in appetite, no change in libido, no disorientation Endocrine: no cold intolerance, no heat intolerance, no polyphagia, no polydipsia Hematologic/Lymphatic: no easy bruising, no easy bleeding, no lymphadenopathy Allergic/Immunologic: no urticaria, no allergic rhinitis, no anaphylaxis Exam - Constitutional Vitals: Temp Pulse Resp BP Pulse Ox 98.4 F 57 L 16 178/70 99 10/31/18 14:50 10/31/18 14:50 10/31/18 14:50 10/31/18 14:50 10/31/18 14:50 General appearance: Present: mild distress - EENT Eyes: Present: PERRL ENT: hearing intact, clear oral mucosa - Neck Neck: Present: supple, normal ROM - Respiratory Respiratory effort: normal Respiratory: bilateral: CTA - Cardiovascular Heart Sounds: Present: S1 & S2. Absent: rub, click - Extremities Extremities: pulses symmetrical, No edema Peripheral Pulses: within normal limits - Abdominal General gastrointestinal: Present: soft, non-tender, non-distended, normal bowel sounds Male genitourinary: Present: normal - Integumentary Integumentary: Present: clear, warm, dry - Musculoskeletal Musculoskeletal: gait normal, strength equal bilaterally - Psychiatric Psychiatric: appropriate mood/affect, intact judgment & insight - Neurologic Neurologic: CNII-XII intact, moves all extremities Results - Labs CBC & Chem 7: 10/31/18 15:55 10/31/18 15:55 Labs: Abnormal lab results 10/31/18 10/31/18 10/31/18 Range/Units 15:55 15:55 15:56 RBC 3.05 L (3.65-5.03) M/mm3 Hgb 9.5 L (11.8-15.2) gm/dl Hct 27.7 L (35.5-45.6) % Lymph % (Auto) 36.3 H (13.4-35.0) % Upson % (Auto) 9.1 H (0.0-7.3) % APTT 24.1 L (24.2-36.6) Sec. Potassium 5.4 H (3.6-5.0) mmol/L Chloride 109.3 H (98-107) mmol/L BUN 44 H (9-20) mg/dL Creatinine 3.0 H (0.8-1.5) mg/dL Glucose 102 H (75-100) mg/dL Calcium 8.3 L (8.4-10.2) mg/dL Assessment and Plan - Patient Problems (1) CHF (congestive heart failure) Current Visit: Yes Status: Acute Qualifiers: Heart failure chronicity: acute Plan to address problem: Admit to telemetry, Echo, thyroid panel, bnp, d dimer, chest x ray, supplemental oxygen, nebulizer therapy, pulse oximetry, strict I/O, daily weight, afterload reduction. (2) Angina at rest Current Visit: Yes Status: Acute Plan to address problem: Admit to telemetry, serial cardiac enzymes, ekg, morphine, supplemental oxygen, nitro, aspirin, stress test, cardiology consulted in ED. (3) EtOH dependence Current Visit: Yes Status: Acute Plan to address problem: Thiamine, folic acid, multivitamin, ciwa protocol, (4) HTN (hypertension) Current Visit: No Status: Chronic Qualifiers: Hypertension type: essential hypertension Qualified Code(s): I10 - Essential (primary) hypertension Plan to address problem: Monitor bp q shift, supportive care, continue medical management (5) History of seizures Current Visit: No Status: Chronic Plan to address problem: Not currently on anti epileptic therapy. outpatient neurology F/U. (6) HLD (hyperlipidemia) Current Visit: Yes Status: Acute Qualifiers: Hyperlipidemia type: mixed hyperlipidemia Qualified Code(s): E78.2 - Mixed hyperlipidemia Plan to address problem: statin therapy, supportive care. low cholesterol diet. (7) Diabetes Current Visit: Yes Status: Acute Plan to address problem: ADA diet, insulin, accu check, hypoglycemia protocol (8) DVT prophylaxis Current Visit: Yes Status: Acute Plan to address problem: SCD to BLE while in bed, supportive care.
[2018-10-31] MEDS ORDERED: NITROSTAT SL PRN (17:24)
[2018-10-31] MEDS ORDERED: PROVENTIL IH PRN (17:24)
[2018-10-31] MEDS ORDERED: SODIUM CHLORIDE FLUSH SYRINGE 10 ML IV PRN ×2 (17:24)
[2018-10-31] MEDS ORDERED: ZOFRAN IV PRN (17:24)
[2018-10-31] MEDS ORDERED: TYLENOL PO PRN (17:24)
[2018-10-31] MEDS ORDERED: APRESOLINE ONE (18:45)
[2018-10-31] MEDS ORDERED: APRESOLINE IV ONE (18:52)
[2018-10-31] MEDS ORDERED: CATAPRES ONE (19:30)
[2018-10-31] MEDS ORDERED: CATAPRES PO ONE (19:32)
[2018-10-31] MEDS ORDERED: APRESOLINE IV PRN (19:36)
[2018-10-31] MEDS ORDERED: NON-FORMULARY (Hydralazine Hcl [Hydralazine Hcl] 50 MG) PO SCH (20:00)
[2018-10-31] MEDS ORDERED: ATIVAN IV PRN (20:13)
[2018-10-31] MEDS: THERAGRAN Tab PO SCH (21:11)
[2018-10-31] MEDS: FOLVITE PO SCH (21:11)
[2018-10-31] MEDS: APRESOLINE PO SCH (21:11)
[2018-10-31] MEDS: VITAMIN B-1 PO SCH (21:11)
[2018-10-31] MEDS: SODIUM CHLORIDE FLUSH SYRINGE 10 ML IV SCH (21:12)
[2018-10-31 21:43] LABS: Free T4 (Free Thyroxine) 0.9 ng/dL (0.76-1.46)
[2018-11-01] MEDS: APRESOLINE PO SCH (06:10)
[2018-11-01 06:49] LABS: Basophils % (Auto) 1.4 % (0.0-1.8); Eosinophils # (Auto) 0.1 K/mm3 (0.0-0.4); Eosinophils % (Auto) 3.2 % (0.0-4.3); Hematocrit 29.8 % (35.5-45.6); Hemoglobin 9.8 gm/dl (11.8-15.2); Lymphocytes % (Auto) 30.2 % (13.4-35.0); Mean Corpuscular HGB Conc 33 % (32-34); Mean Corpuscular Volume 91 fl (84-94); Monocytes # (Auto) 0.3 K/mm3 (0.0-0.8); Monocytes % (Auto) 8.2 % (0.0-7.3); Platelet Count 254 K/mm3 (140-440); Red Blood Count 3.28 M/mm3 (3.65-5.03)
[2018-11-01] MEDS ORDERED: LEXISCAN IV ONE (07:18)
[2018-11-01 07:20] LABS: Albumin 3.3 g/dL (3.9-5); Calcium 8.3 mg/dL (8.4-10.2)
--- NOTE | 2018-11-01 08:52 | Consultation ---
History of Present Illness - Reason for Consult Consult date: 11/01/18 acute renal failure, chronic renal failure - History of Present Illness The patient is a 72 YO male with history significant for Charcot Jessica Tooth disease, Hypertension, Polio as child, CVA with left-sided weakness and CKD stage 4 who presented with chest pain. Patient is a poor historian. He had pain for about a day but got acutely worse about i hr [employer]. Pt states that pain was 6/10, substernal, intermittent and not radiating. He denies N, V, D, abd pain, diaphoresis, palpitations, shortness of breath, dizziness, syncope, leg swelling, dysuria or hematuria. Patient was admitted to r/o ACS. Creatinine was 3 with potassium 5.4. Nephrology was consulted for further evaluation. Past History Past Medical History: diabetes, hypertension, hyperlipidemia, seizures, stroke, other (ETOH Dependence) Past Surgical History: Other (Right Shoulder) Social history: single, alcohol abuse Family history: hypertension Medications and Allergies Allergies Allergy/AdvReac Type Severity Reaction Status Date / Time No Known Allergies Allergy Verified 10/31/18 14:50 Home Medications Medication Instructions Recorded Confirmed Last Taken Type Famotidine [Pepcid] 20 mg PO DAILY #30 tablet 08/19/18 Unknown Rx Hydralazine HCl 50 mg PO TID #90 tablet 08/19/18 Unknown Rx Losartan [Cozaar] 100 mg PO QDAY #30 tablet 08/19/18 Unknown Rx NIFEdipine XL [Procardia Xl] 90 mg PO QDAY #30 tablet 08/19/18 Unknown Rx Folic Acid [Folvite] 1 mg PO QDAY #30 tablet 11/01/18 Unknown Rx Multivitamin Tab [Multiple Vitamin 1 each PO QDAY #30 tablet 11/01/18 Unknown Rx TAB (Theragran)] Thiamine [Vitamin B-1] 100 mg PO QDAY #30 tablet 11/01/18 Unknown Rx Active Meds: Active Medications Acetaminophen (Tylenol) 650 mg PO Q4H PRN PRN Reason: Pain MILD(1-3)/Fever >100.5/LIRA Albuterol (Proventil) 2.5 mg IH Q4HRT PRN PRN Reason: Shortness Of Breath Famotidine (Pepcid) 20 mg PO DAILY MICHA Folic Acid (Folvite) 1 mg PO QDAY MICHA Last Admin: 10/31/18 21:11 Dose: 1 mg Documented by: Hydralazine HCl (Apresoline) 25 mg PO Q8HR [facility] Last Admin: 11/01/18 06:10 Dose: Not Given Documented by: Hydralazine HCl (Apresoline) 20 mg IV Q4HR PRN PRN Reason: Hypertension Last Admin: 11/01/18 04:54 Dose: 20 mg Documented by: Lorazepam (Ativan) 2 mg IV Q1HR PRN PRN Reason: CIWA-Ar 8-15 Losartan Potassium (Cozaar) 100 mg PO QDAY [facility] Multivitamins (Theragran Tab) 1 each PO QDAY [facility] Last Admin: 10/31/18 21:11 Dose: 1 each Documented by: Nifedipine (Procardia Xl) 90 mg PO QDAY [facility] Nitroglycerin (Nitrostat) 0.4 mg SL Q5M PRN PRN Reason: Chest Pain Ondansetron HCl (Zofran) 4 mg IV Q8H PRN PRN Reason: Nausea And Vomiting Sodium Chloride (Sodium Chloride Flush Syringe 10 Ml) 10 ml IV BID [facility] Last Admin: 10/31/18 21:12 Dose: 10 ml Documented by: Sodium Chloride (Sodium Chloride Flush Syringe 10 Ml) 10 ml IV PRN PRN PRN Reason: LINE FLUSH Sodium Chloride (Sodium Chloride Flush Syringe 10 Ml) 10 ml IV PRN PRN PRN Reason: LINE FLUSH Thiamine HCl (Vitamin B-1) 100 mg PO QDAY [facility] Last Admin: 10/31/18 21:11 Dose: 100 mg Documented by: Review of Systems Constitutional: weakness, no weight loss, no weight gain, no fever, no chills, no anorexia, no poor appetite Ears, nose, mouth and throat: no epistaxis Cardiovascular: chest pain, high blood pressure, no orthopnea, no edema, no syncope, no lightheadedness, no shortness of breath, no leg edema Respiratory: no cough, no hemoptysis, no shortness of breath Gastrointestinal: no abdominal pain, no nausea, no vomiting, no diarrhea, no melena Genitourinary Male: no dysuria, no hematuria Exam - Vital Signs Vital signs: Vital Signs Pulse Resp 58 L 13 10/31/18 14:47 10/31/18 14:47 - General Appearance General appearance: well-developed, appears stated age, other (no distress) EENT: ATNC, PERRL, mucous membranes moist, hearing intact, vision intact Neck: Present: neck supple, trachea midline Respiratory: Clear to Ascultation Heart: regular, S1S2, no murmurs Gastrointestinal: Present: normoactive bowel sounds. Absent: tenderness, distended Integumentary: no rash, warm and dry Neurologic: no asterixis, alert and oriented x3, other (bilateral hand muscle weakness, b/l claw hand L > R) Musculoskeletal: Present: other (no edema) Psychiatric: cooperative Results - Lab Results 11/01/18 06:24 11/01/18 06:24 Most recent lab results Calcium 8.3 mg/dL (8.4-10.2) L 11/01/18 06:24 Magnesium 2.00 mg/dL (1.7-2.3) 10/31/18 20:18 Assessment and Plan 1. Acute kidney injury / CKD stage 4: Mild KEMAL superimposed on CKD stage 4. Slight decrease in the creatinine level. Monitor renal function. Renal prognosis is guarded. Avoid nephrotoxic agents. Meds dosage based on GFR. 2. FEN: Hyperkalemia, improved. Monitor lytes. 3. Chest pain: Followed by Cards. 4. Uncontrolled HTN: BP is better. 5. Anemia: POA.
[2018-11-01] MEDS ORDERED: NON-FORMULARY (Losartan [Cozaar] 100 MG) PO SCH (10:00)
[2018-11-01] MEDS ORDERED: PROCARDIA XL PO SCH (10:00)
[2018-11-01] MEDS ORDERED: COZAAR PO SCH (10:00)
[2018-11-01] MEDS ORDERED: PEPCID PO SCH (10:00)
--- NOTE | 2018-11-01 10:08 | Consultation ---
History of Present Illness Consult date: 11/01/18 Consult reason: chest pain History of present illness: This is a frail 72-year old man with chronic uncontrolled hypertension and chronic kidney disease. He receives his usual outpatient care with [facility]. Patient presents to the hospital with chest pain after eating breakfast. On presentation he was noted severely hypertensive. Since his admission, his blood pressure has remained severely elevated, currently 170s to 180s systolic. EKG is normal sinus rhythm, left ventricular hypertrophy with repolarization abnormalities of LVH. This patient has had extensive cardiac ischemic workup. In June 2013, a cardiac catheterization demonstrated normal coronary arteries, left ventricular ejection fraction 55%. Following that, he had multiple stress thallium tests including two last year that reports no reversible ischemia. Multiple echocardiograms has also shown normal left ventricular systolic function. Today, the patient reports he is feeling better and reports he is currently chest pain free. He has no shortness of breath, dizziness or palpitations. Past History Past Medical History: diabetes, hypertension, hyperlipidemia, seizures, stroke, other (ETOH Dependence) Past Surgical History: Other (Right Shoulder) Social history: single, alcohol abuse Family history: hypertension Medications and Allergies Allergies Allergy/AdvReac Type Severity Reaction Status Date / Time No Known Allergies Allergy Verified 10/31/18 14:50 Home Medications Medication Instructions Recorded Confirmed Last Taken Type Famotidine [Pepcid] 20 mg PO DAILY #30 tablet 08/19/18 Unknown Rx Hydralazine HCl 50 mg PO TID #90 tablet 08/19/18 Unknown Rx Losartan [Cozaar] 100 mg PO QDAY #30 tablet 08/19/18 Unknown Rx NIFEdipine XL [Procardia Xl] 90 mg PO QDAY #30 tablet 08/19/18 Unknown Rx Folic Acid [Folvite] 1 mg PO QDAY #30 tablet 11/01/18 Unknown Rx Multivitamin Tab [Multiple Vitamin 1 each PO QDAY #30 tablet 11/01/18 Unknown Rx TAB (Theragran)] Thiamine [Vitamin B-1] 100 mg PO QDAY #30 tablet 11/01/18 Unknown Rx Active Meds: Active Medications Acetaminophen (Tylenol) 650 mg PO Q4H PRN PRN Reason: Pain MILD(1-3)/Fever >100.5/LIRA Albuterol (Proventil) 2.5 mg IH Q4HRT PRN PRN Reason: Shortness Of Breath Famotidine (Pepcid) 20 mg PO DAILY [facility] Folic Acid (Folvite) 1 mg PO QDAY [facility] Last Admin: 10/31/18 21:11 Dose: 1 mg Documented by: Hydralazine HCl (Apresoline) 25 mg PO Q8HR [facility] Last Admin: 11/01/18 06:10 Dose: Not Given Documented by: Hydralazine HCl (Apresoline) 20 mg IV Q4HR PRN PRN Reason: Hypertension Last Admin: 11/01/18 04:54 Dose: 20 mg Documented by: Lorazepam (Ativan) 2 mg IV Q1HR PRN PRN Reason: CIWA-Ar 8-15 Losartan Potassium (Cozaar) 100 mg PO QDAY [facility] Multivitamins (Theragran Tab) 1 each PO QDAY [facility] Last Admin: 10/31/18 21:11 Dose: 1 each Documented by: Nifedipine (Procardia Xl) 90 mg PO QDAY [facility] Nitroglycerin (Nitrostat) 0.4 mg SL Q5M PRN PRN Reason: Chest Pain Ondansetron HCl (Zofran) 4 mg IV Q8H PRN PRN Reason: Nausea And Vomiting Sodium Chloride (Sodium Chloride Flush Syringe 10 Ml) 10 ml IV BID [facility] Last Admin: 10/31/18 21:12 Dose: 10 ml Documented by: Sodium Chloride (Sodium Chloride Flush Syringe 10 Ml) 10 ml IV PRN PRN PRN Reason: LINE FLUSH Sodium Chloride (Sodium Chloride Flush Syringe 10 Ml) 10 ml IV PRN PRN PRN Reason: LINE FLUSH Thiamine HCl (Vitamin B-1) 100 mg PO QDAY [facility] Last Admin: 10/31/18 21:11 Dose: 100 mg Documented by: Physical Examination Vital Signs Pulse Resp 58 L 13 10/31/18 14:47 10/31/18 14:47 General appearance: no acute distress HEENT: Positive: PERRL Neck: Positive: trachea midline Cardiac: Positive: Reg Rate and Rhythm Lungs: Positive: Decreased Breath Sounds Results 11/01/18 06:24 11/01/18 06:24 Cardiac Enzymes 11/01/18 Range/Units 06:24 AST 13 (5-40) units/L Coagulation 10/31/18 Range/Units 15:56 PT 13.6 (12.2-14.9) Sec. INR 1.07 (0.87-1.13) APTT 24.1 L (24.2-36.6) Sec. CBC 10/31/18 11/01/18 Range/Units 15:55 06:24 WBC 4.6 3.2 L (4.5-11.0) K/mm3 RBC 3.05 L 3.28 L (3.65-5.03) M/mm3 Hgb 9.5 L 9.8 L (11.8-15.2) gm/dl Hct 27.7 L 29.8 L (35.5-45.6) % Plt Count 242 254 (140-440) K/mm3 Lymph # 1.7 1.0 L (1.2-5.4) K/mm3 Morrison # 0.4 0.3 (0.0-0.8) K/mm3 Eos # 0.1 0.1 (0.0-0.4) K/mm3 Baso # 0.0 0.0 (0.0-0.1) K/mm3 Comprehensive Metabolic Panel 10/31/18 11/01/18 Range/Units 15:55 06:24 Sodium 143 143 (137-145) mmol/L Potassium 5.4 H 4.6 (3.6-5.0) mmol/L Chloride 109.3 H 111.1 H (98-107) mmol/L Carbon Dioxide 22 20 L (22-30) mmol/L BUN 44 H 39 H (9-20) mg/dL Creatinine 3.0 H 2.8 H (0.8-1.5) mg/dL Glucose 102 H 97 (75-100) mg/dL Calcium 8.3 L 8.3 L (8.4-10.2) mg/dL AST 13 (5-40) units/L ALT 8 (7-56) units/L Alkaline Phosphatase 64 (35-129) units/L Total Protein 6.5 (6.3-8.2) g/dL Albumin 3.3 L (3.9-5) g/dL Assessment and Plan Severe uncontrolled Hypertension Atypical chest pain No ischemia by MPI 01/2018 No ischemia by [facility] 05/2017 Normal coronaries by [facility] in 2013 Chronic kidney disease Normal LVEF, 65% by echo 01/2018. Optimal blood pressure management. Otherwise, conservative cardiac management.
[2018-11-01] MEDS: VITAMIN B-1 PO SCH (10:26)
[2018-11-01] MEDS: THERAGRAN Tab PO SCH (10:26)
[2018-11-01] MEDS: FOLVITE PO SCH (10:26)
[2018-11-01] MEDS: SODIUM CHLORIDE FLUSH SYRINGE 10 ML IV SCH (10:27)
--- NOTE | 2018-11-01 11:02 | Discharge Summary ---
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 Pt states that he has experienced pain in his chest over the past 1 day with acutely worsening symptoms that began this morning after eating breakfast. Pt states that pain is 4-6/10,substernal, intermittent, localized to the left chest, not worsened with exertion, not relieved with rest. Pt denies fever, chills, palpitations, NVD, Syncope, BRBPR, Trauma, shortness of breath, productive cough, prolonged travel/immobility, individual/family history of DVT/PE/Bleeding/Blood Clotting Disorders, Skin rash, or recent ill contacts. EMS Notified, and upon arrival the patient was found to have Angina. Pt transported to [facility] for further care and evaluation. Pt seen and evaluated in ED and found to have symptoms consistent with ACS, As well as Diastolic CHF, and Acute Kidney Injury. Pt admitted to telemetry. * patient was seen by cardiology, following his description of his pain and review of recent stress test available to cardiology, the ordered stress test was canceled and they ok'd pateints discharge * at discharge patient was pain free, he actual stated that he eat some grits and the pain started, PPI was given * He received counselling on ETOH use and replacements of electrolytes done * Pt was advised to have PCP arrange GI follow up considering his ETOH use. (1) CHF (congestive heart failure)-Diastolic stable (2)Atypical chest pain, secondary to GERD (3) EtOH dependence (4) HTN (hypertension) (5) History of seizures (6) HLD (hyperlipidemia) (7) Diabetes Disposition: - TO HOME OR SELFCARE Time spent for discharge: 35 min Core Measure Documentation - Palliative Care Palliative Care/ Comfort Measures: Not Applicable - Core Measures Any of the following diagnoses?: none Exam - Physical Exam Narrative exam: General appearance: Present: no distress - EENT Eyes: Present: PERRL ENT: hearing intact, clear oral mucosa - Neck Neck: Present: supple, normal ROM - Respiratory Respiratory effort: normal Respiratory: bilateral: CTA - Cardiovascular Heart Sounds: Present: S1 & S2. Absent: rub, click - Extremities Extremities: pulses symmetrical, No edema Peripheral Pulses: within normal limits - Abdominal General gastrointestinal: Present: soft, non-tender, non-distended, normal bowel sounds Male genitourinary: Present: normal - Integumentary Integumentary: Present: clear, warm, dry - Musculoskeletal Musculoskeletal: gait normal, strength equal bilaterally - Psychiatric Psychiatric: appropriate mood/affect, intact judgment & insight - Neurologic Neurologic: CNII-XII intact, moves all extremities - Constitutional Vitals: Temp Pulse Resp BP Pulse Ox 98.0 F 58 L 18 179/64 99 11/01/18 03:34 11/01/18 10:26 11/01/18 03:34 11/01/18 10:26 11/01/18 03:34 General appearance: Present: no acute distress, well-nourished Plan Activity: advance as tolerated, fall precautions Diet: low fat, low salt Special Instructions: record daily BP diary Follow up with: PRIMARY CAREMD [Primary Care Provider] - 3-5 Days BERTA VAUGHN MD [Staff Physician] - 7 Days DELVIN SMITH MD [Staff Physician] - 7 Days Prescriptions: Folic Acid [Folvite] 1 mg PO QDAY #30 tablet Multivitamin Tab [Multiple Vitamin TAB (Theragran)] 1 each PO QDAY #30 tablet Thiamine [Vitamin B-1] 100 mg PO QDAY #30 tablet
[2018-11-01] MEDS ORDERED: APRESOLINE PO SCH (14:00)
[2018-11-01 14:08] VITALS: BP 148/52
== END 2018-11-01 22:27 | disposition home or self-care (01) ==
LOC: ED 14:37 → INTOOBSV 17:24 → 4A 17:24
PROVIDERS: ADMIT Internal Medicine; ATTEND Internal Medicine
DX: I20.9 Angina pectoris, unspecified (principal); I50.9 Heart failure, unspecified; N17.9 Acute kidney failure, unspecified; I11.0 Hypertensive heart disease with heart failure; F10.20 Alcohol dependence, uncomplicated
CPT/HCPCS: 36415; 71046; 80048; 80053; 83690; 83735; 83880; 84439; 84443; 84484; 85025; 85379; 85610; 85730; 87116; 93005; 93010; 93306; 96374; 96376; 99285; G0378; J0360; J2785

== ENCOUNTER 2020-01-02 11:55 | Inpatient (IN) | payer MEDICARE ==
--- NOTE | 2020-01-02 12:32 | Consultation ---
History of Present Illness History of present illness: [facility] [employer] [facility] Date of Service: 01/02/2020 12:14:25 Impression: Quadraparesis. Comments/Sign-Out: Patient presented with quadraparesis with distal UE worse than proximal. HCT showed no acute process. No alteplase was offered since patient is outside of treatment time window. Due to concern of spinal cord injury would recommend MRI Cervical Wo Metrics: Last Known Well: 01/01/2020 09:00:00 [employer] Notification Time: 01/02/2020 12:13:37 Arrival Time: 01/02/2020 11:55:00 Stamp Time: 01/02/2020 12:14:25 Time First Login Attempt: 01/02/2020 12:19:55 Video Start Time: 01/02/2020 12:19:55 Symptoms: Bilateral side numbness. NIHSS Start Assessment Time: 01/02/2020 12:20:00 Patient is not a candidate for Alteplase/Activase. Patient was not deemed candidate for Alteplase/Activase thrombolytics because of Last Well Known Above 4.5 Hours. Video End Time: 01/02/2020 12:31:13 CT head showed no acute hemorrhage or acute core infarct. Clinical Presentation is not Suggestive of Large Vessel Occlusive Disease ED Physician notified of diagnostic impression and management plan on 01/02/2020 12:31:26 Sign Out: Discussed with Emergency Department Provider History of Present Illness: Patient is a 74 year old Male. Patient was brought by private transportation with symptoms of Bilateral side numbness. Past Medical History of stroke, CKD, Hypertension presented with bilateral hand numbnes/weakness. Patient denies any new trauma but stated it all started around 0900 yesterday. Patient stated it happened in the past couldn't recall the diagnosis. Last seen normal was beyond 4.5 hours of presentation. There is no history of hemorrhagic complications or intracranial hemorrhage. There is no history of Recent Anticoagulants. There is no history of recent major surgery. There is no history of recent stroke. Examination: BP(177/60), Pulse(51), Blood Glucose(127) 1A: Level of Consciousness - Alert; keenly responsive + 0 1B: Ask Month and Age - 1 Question Right + 1 1C: Blink Eyes & Squeeze Hands - Performs Both Tasks + 0 2: Test Horizontal Extraocular Movements - Normal + 0 3: Test Visual Love - No Visual Loss + 0 4: Test Facial Palsy (Use Grimace if Obtunded) - Normal symmetry + 0 5A: Test Left Arm Motor Drift - No Drift for 10 Seconds + 0 5B: Test Right Arm Motor Drift - No Drift for 10 Seconds + 0 6A: Test Left Leg Motor Drift - Drift, but doesn't hit bed + 1 6B: Test Right Leg Motor Drift - Drift, but doesn't hit bed + 1 7: Test Limb Ataxia (FNF/Heel-Castro) - No Ataxia + 0 8: Test Sensation - Mild-Moderate Loss: Less Sharp/More Dull + 1 9: Test Language/Aphasia - Normal; No aphasia + 0 10: Test Dysarthria - Normal + 0 11: Test Extinction/Inattention - No abnormality + 0 NIHSS Score: 4 Patient/Family was informed the Neurology Consult would happen via TeleHealth consult by way of interactive audio and video telecommunications and consented to receiving care in this manner. Dr [facility] [employer] Case [id number] Medications and Allergies Allergies Allergy/AdvReac Type Severity Reaction Status Date / Time No Known Allergies Allergy Verified 10/31/18 14:50 Home Medications Medication Instructions Recorded Confirmed Last Taken Type Famotidine [Pepcid] 20 mg PO DAILY #30 tablet 08/19/18 09/10/19 Unknown Rx Hydralazine HCl 50 mg PO TID #90 tablet 08/19/18 09/10/19 Unknown Rx NIFEdipine XL [Procardia Xl] 90 mg PO QDAY #30 tablet 08/19/18 09/10/19 Unknown Rx Folic Acid [Folvite] 1 mg PO QDAY #30 tablet 11/01/18 09/10/19 Unknown Rx Multivitamin Tab [Multiple Vitamin 1 each PO QDAY #30 tablet 11/01/18 09/10/19 Unknown Rx TAB (Theragran)] Thiamine [Vitamin B-1] 100 mg PO QDAY #30 tablet 11/01/18 09/10/19 Unknown Rx Aspirin [Aspirin BABY CHEW TAB] 81 mg PO QDAY #30 tab.chew 04/07/19 09/10/19 Unknown Rx AtorvaSTATin [Lipitor] 40 mg PO QHS #30 tablet 04/07/19 09/10/19 Unknown Rx polyethylene glycoL 3350 [Miralax 17 gm PO QDAY PRN #30 powd.pack 04/07/19 09/10/19 Unknown Rx 3350] Physical Examination - Vital Signs Vital Signs: Vital Signs Temp Pulse Resp BP Pulse Ox 98.3 F 51 L 16 177/60 99 01/02/20 12:07 01/02/20 12:07 01/02/20 12:07 01/02/20 12:07 01/02/20 12:07 Results - Laboratory Findings Abnormal Lab Findings: Abnormal Labs 01/02/20 12:27 POC Glucose 127 H
--- NOTE | 2020-01-02 12:35 | Cat Scan Report ---
CT head/brain wo con INDICATION: Headache. TECHNIQUE: Routine CT head. All CT scans at this location are performed using CT dose reduction for A CALVIN by means of automated exposure control. COMPARISON: None. FINDINGS: Intracranial: Small punctate area of hypoattenuation in the right cerebellar infarction seen on image 5 of series 2. This is not well-visualized and coronal or sagittal view. Possible remote left lacuna r posterior inferior cerebellar infarction. Encephalomalacia in the right high frontal lobe from prio r infarction.. Hartmann-white matter differentiation is maintained. No intracranial hemorrhage. No extra axial collection.. No hydrocephalus. No herniation. Sinuses: Paranasal sinuses and mastoid air cells are essentially clear. Orbits: Globes are intact. Calvarium: No acute fracture. IMPRESSION: 1. Possible age-indeterminate punctate infarction in the right cerebellum. Can consider MRI if clini ekta indicated. 2. Remote right frontal infarct. Signer Name: Hari Darling MD Signed: 01/02/2020 12:30 PM Workstation Name: [id number]
[2020-01-02 12:45] LABS: Basophils # (Auto) 0.1 K/mm3 (0.0-0.1); Basophils % (Auto) 1.8 % (0.0-1.8); Eosinophils # (Auto) 0.2 K/mm3 (0.0-0.4); Eosinophils % (Auto) 5.4 % (0.0-4.3); Hematocrit 21.8 % (35.5-45.6); Hemoglobin 7.5 gm/dl (11.8-15.2); Lymphocytes # (Auto) 1.2 K/mm3 (1.2-5.4); Lymphocytes % (Auto) 30.9 % (13.4-35.0); Mean Corpuscular HGB Conc 35 % (32-34); Mean Corpuscular Volume 86 fl (84-94); Monocytes # (Auto) 0.3 K/mm3 (0.0-0.8); Monocytes % (Auto) 6.8 % (0.0-7.3); Platelet Count 267 K/mm3 (140-440); Red Blood Count 2.53 M/mm3 (3.65-5.03)
[2020-01-02] MEDS ORDERED: cloNIDine 0.2 MG TAB PO ONE (12:49)
[2020-01-02 12:56] LABS: INR 1.1 (0.87-1.13)
[2020-01-02 12:57] LABS: Partial Thromboplastin Time 26.8 Sec. (24.2-36.6); Thrombin Time 17.8 Sec. (15.1-19.6)
--- NOTE | 2020-01-02 12:57 | Emergency Department Report ---
HPI - General Chief Complaint: Neuro Symptoms/Deficit Time Seen by Provider: 01/02/20 12:16 - HPI HPI: This is a 74-year-old male who presents to the emergency department from home with complaint of bilateral upper extremity numbness and numbness to the mouth and tongue since yesterday evening, but the symptoms worsen upon waking up this morning around 7 AM. Patient has a history of previous CVA with left-sided weakness, CHF, diabetes, hypertension. The patient also has a history of polio as a child that left him with upper and lower extremity weakness and lower extremity numbness. The patient says he does walk with a walker. He denies any headache, vision change, fever, nausea, vomiting, back pain, shortness of breath. He does feel like he is having some difficulty with his speech because he feels that his tongue is numb. ED Past Medical Hx - Past Medical History Previous Medical History?: Yes Hx Hypertension: Yes Hx CVA: Yes (Left side deficit) Hx Heart Attack/AMI: No Hx Congestive Heart Failure: Yes Hx Diabetes: Yes Hx Deep Vein Thrombosis: No Hx Liver Disease: No Hx Arthritis: Yes Hx Seizures: No Hx Asthma: No Hx COPD: No Hx Tuberculosis: Yes Hx Dementia: No Additional medical 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 - Surgical History Hx Coronary Stent: No Hx Pacemaker: No Hx Internal Defibrillator: No Additional Surgical History: Right shoulder surgery - Social History Smoking Status: Unknown if ever smoked Substance Use Type: None - Medications Home Medications: Home Medications Medication Instructions Recorded Confirmed Last Taken Type Famotidine [Pepcid] 20 mg PO DAILY #30 tablet 08/19/18 09/10/19 Unknown Rx Hydralazine HCl 50 mg PO TID #90 tablet 08/19/18 09/10/19 Unknown Rx NIFEdipine XL [Procardia Xl] 90 mg PO QDAY #30 tablet 08/19/18 09/10/19 Unknown Rx Folic Acid [Folvite] 1 mg PO QDAY #30 tablet 11/01/18 09/10/19 Unknown Rx Multivitamin Tab [Multiple Vitamin 1 each PO QDAY #30 tablet 11/01/18 09/10/19 Unknown Rx TAB (Theragran)] Thiamine [Vitamin B-1] 100 mg PO QDAY #30 tablet 11/01/18 09/10/19 Unknown Rx Aspirin [Aspirin BABY CHEW TAB] 81 mg PO QDAY #30 tab.chew 04/07/19 09/10/19 Unknown Rx AtorvaSTATin [Lipitor] 40 mg PO QHS #30 tablet 04/07/19 09/10/19 Unknown Rx polyethylene glycoL 3350 [Miralax 17 gm PO QDAY PRN #30 powd.pack 04/07/19 09/10/19 Unknown Rx 3350] ED Review of Systems ROS: Stated complaint: NUMB AR/NECK/UNSTEADY GATE Other details as noted in HPI Comment: All other systems reviewed and negative Constitutional: denies: fever Eyes: denies: eye pain, vision change ENT: denies: ear pain, throat pain Respiratory: denies: cough, shortness of breath Cardiovascular: denies: chest pain, palpitations Gastrointestinal: denies: abdominal pain, vomiting Genitourinary: denies: dysuria, discharge Musculoskeletal: denies: back pain, arthralgia Skin: denies: rash, lesions Neurological: weakness, numbness. denies: headache Physical Exam - Physical Exam Vital Signs: Vital Signs 01/02/20 12:07 Temperature 98.3 F Pulse Rate 51 L Respiratory 16 Rate Blood Pressure 177/60 O2 Sat by Pulse 99 Oximetry Physical Exam: GENERAL: The patient is well-developed well-nourished. HENT: Normocephalic. Atraumatic. Patient has moist mucous membranes. EYES: Extraocular motions are intact. No nystagmus. NECK: Supple. Trachea is midline. CHEST/LUNGS: Clear to auscultation. There is no respiratory distress noted. HEART/CARDIOVASCULAR: Regular. There is no tachycardia. There is no murmur. ABDOMEN: Abdomen is soft, nontender. Patient has normal bowel sounds. SKIN: Skin is warm and dry. NEURO: The patient is awake, alert, and oriented. The patient is cooperative. Mild dysarthria. MUSCULOSKELETAL: Bilateral hand atrophy. There is some weakness to all 4 extremities. ED Course Vital Signs 01/02/20 12:07 Temperature 98.3 F Pulse Rate 51 L Respiratory 16 Rate Blood Pressure 177/60 O2 Sat by Pulse 99 Oximetry - Reevaluation(s) Reevaluation #1: 01/02/20 19:02 Lab Results 10/23/20 10/23/20 10/23/20 Range/Units 12:27 12:30 12:30 WBC 3.9 L (4.5-11.0) K/mm3 RBC 2.53 L (3.65-5.03) M/mm3 Hgb 7.5 L (11.8-15.2) gm/dl Hct 21.8 L (35.5-45.6) % MCV 86 (84-94) fl MCH 30 (28-32) pg MCHC 35 H (32-34) % RDW 15.0 (13.2-15.2) % Plt Count 267 (140-440) K/mm3 Lymph % (Auto) 30.9 (13.4-35.0) % [place] % (Auto) 6.8 (0.0-7.3) % Eos % (Auto) 5.4 H (0.0-4.3) % Baso % (Auto) 1.8 (0.0-1.8) % Lymph # (Auto) 1.2 (1.2-5.4) K/mm3 [place] # (Auto) 0.3 (0.0-0.8) K/mm3 Eos # (Auto) 0.2 (0.0-0.4) K/mm3 Baso # (Auto) 0.1 (0.0-0.1) K/mm3 Seg Neutrophils % 55.1 (40.0-70.0) % Seg Neutrophils # 2.1 (1.8-7.7) K/mm3 PT 14.3 (12.2-14.9) Sec. INR 1.10 (0.87-1.13) APTT 26.8 (24.2-36.6) Sec. Thrombin Time 17.8 (15.1-19.6) Sec. Sodium (137-145) mmol/L Potassium (3.6-5.0) mmol/L Chloride (98-107) mmol/L Carbon Dioxide (22-30) mmol/L Anion Gap mmol/L BUN (9-20) mg/dL Creatinine (0.8-1.3) mg/dL Estimated GFR ml/min BUN/Creatinine Ratio % Glucose (75-100) mg/dL POC Glucose 127 H (70-105) mg/dL Calcium (8.4-10.2) mg/dL Total Bilirubin (0.1-1.2) mg/dL AST (5-40) units/L ALT (7-56) units/L Alkaline Phosphatase (35-129) units/L Total Creatine Kinase (55-170) units/L CK-MB (CK-2) (0.0-4.0) ng/mL CK-MB (CK-2) Rel Index (0-4) Troponin T (0.00-0.029) ng/mL Total Protein (6.3-8.2) g/dL Albumin (3.9-5) g/dL Albumin/Globulin Ratio % TSH (0.270-4.200) mlU/mL Urine Color (Yellow) Urine Turbidity (Clear) Urine pH (5.0-7.0) Ur Specific [place] (1.003-1.030) Urine Protein (Negative) mg/dL Urine Glucose (UA) (Negative) mg/dL Urine Ketones (Negative) mg/dL Urine Blood (Negative) Urine Nitrite (Negative) Urine Bilirubin (Negative) Urine Urobilinogen (<2.0) mg/dL Ur Leukocyte Esterase (Negative) Urine WBC (Auto) (0.0-6.0) /HPF Urine RBC (Auto) (0.0-6.0) /HPF U Epithel Cells (Auto) (0-13.0) /HPF Urine Opiates Screen Urine Methadone Screen Ur Barbiturates Screen Ur Phencyclidine Scrn Ur Amphetamines Screen U Benzodiazepines Scrn Urine Cocaine Screen U Marijuana (THC) Screen Drugs of Abuse Note 01/02/20 01/02/20 01/02/20 Range/Units 12:30 12:30 13:06 WBC (4.5-11.0) K/mm3 RBC (3.65-5.03) M/mm3 Hgb (11.8-15.2) gm/dl Hct (35.5-45.6) % MCV (84-94) fl MCH (28-32) pg MCHC (32-34) % RDW (13.2-15.2) % Plt Count (140-440) K/mm3 Lymph % (Auto) (13.4-35.0) % [place] % (Auto) (0.0-7.3) % Eos % (Auto) (0.0-4.3) % Baso % (Auto) (0.0-1.8) % Lymph # (Auto) (1.2-5.4) K/mm3 [place] # (Auto) (0.0-0.8) K/mm3 Eos # (Auto) (0.0-0.4) K/mm3 Baso # (Auto) (0.0-0.1) K/mm3 Seg Neutrophils % (40.0-70.0) % Seg Neutrophils # (1.8-7.7) K/mm3 PT (12.2-14.9) Sec. INR (0.87-1.13) APTT (24.2-36.6) Sec. Thrombin Time (15.1-19.6) Sec. Sodium 145 (137-145) mmol/L Potassium 5.4 H (3.6-5.0) mmol/L Chloride 111.6 H (98-107) mmol/L Carbon Dioxide 20 L (22-30) mmol/L Anion Gap 19 mmol/L BUN 61 H (9-20) mg/dL Creatinine 4.8 H (0.8-1.3) mg/dL Estimated GFR 15 ml/min BUN/Creatinine Ratio 13 % Glucose 94 (75-100) mg/dL POC Glucose 105 (70-105) mg/dL Calcium 7.8 L (8.4-10.2) mg/dL Total Bilirubin 0.30 (0.1-1.2) mg/dL AST 12 (5-40) units/L ALT 9 (7-56) units/L Alkaline Phosphatase 70 (35-129) units/L Total Creatine Kinase 274 H (55-170) units/L CK-MB (CK-2) 4.8 H (0.0-4.0) ng/mL CK-MB (CK-2) Rel Index 1.7 (0-4) Troponin T 0.024 (0.00-0.029) ng/mL Total Protein 6.9 (6.3-8.2) g/dL Albumin 4.0 (3.9-5) g/dL Albumin/Globulin Ratio 1.4 % TSH 1.620 (0.270-4.200) mlU/mL Urine Color (Yellow) Urine Turbidity (Clear) Urine pH (5.0-7.0) Ur Specific [place] (1.003-1.030) Urine Protein (Negative) mg/dL Urine Glucose (UA) (Negative) mg/dL Urine Ketones (Negative) mg/dL Urine Blood (Negative) Urine Nitrite (Negative) Urine Bilirubin (Negative) Urine Urobilinogen (<2.0) mg/dL Ur Leukocyte Esterase (Negative) Urine WBC (Auto) (0.0-6.0) /HPF Urine RBC (Auto) (0.0-6.0) /HPF U Epithel Cells (Auto) (0-13.0) /HPF Urine Opiates Screen Urine Methadone Screen Ur Barbiturates Screen Ur Phencyclidine Scrn Ur Amphetamines Screen U Benzodiazepines Scrn Urine Cocaine Screen U Marijuana (THC) Screen Drugs of Abuse Note 01/02/20 01/02/20 01/02/20 Range/Units 15:05 15:05 17:40 WBC (4.5-11.0) K/mm3 RBC (3.65-5.03) M/mm3 Hgb (11.8-15.2) gm/dl Hct (35.5-45.6) % MCV (84-94) fl MCH (28-32) pg MCHC (32-34) % RDW (13.2-15.2) % Plt Count (140-440) K/mm3 Lymph % (Auto) (13.4-35.0) % [place] % (Auto) (0.0-7.3) % Eos % (Auto) (0.0-4.3) % Baso % (Auto) (0.0-1.8) % Lymph # (Auto) (1.2-5.4) K/mm3 [place] # (Auto) (0.0-0.8) K/mm3 Eos # (Auto) (0.0-0.4) K/mm3 Baso # (Auto) (0.0-0.1) K/mm3 Seg Neutrophils % (40.0-70.0) % Seg Neutrophils # (1.8-7.7) K/mm3 PT (12.2-14.9) Sec. INR (0.87-1.13) APTT (24.2-36.6) Sec. Thrombin Time (15.1-19.6) Sec. Sodium (137-145) mmol/L Potassium (3.6-5.0) mmol/L Chloride (98-107) mmol/L Carbon Dioxide (22-30) mmol/L Anion Gap mmol/L BUN (9-20) mg/dL Creatinine (0.8-1.3) mg/dL Estimated GFR ml/min BUN/Creatinine Ratio % Glucose (75-100) mg/dL POC Glucose 156 H (70-105) mg/dL Calcium (8.4-10.2) mg/dL Total Bilirubin (0.1-1.2) mg/dL AST (5-40) units/L ALT (7-56) units/L Alkaline Phosphatase (35-129) units/L Total Creatine Kinase (55-170) units/L CK-MB (CK-2) (0.0-4.0) ng/mL CK-MB (CK-2) Rel Index (0-4) Troponin T (0.00-0.029) ng/mL Total Protein (6.3-8.2) g/dL Albumin (3.9-5) g/dL Albumin/Globulin Ratio % TSH (0.270-4.200) mlU/mL Urine Color Straw (Yellow) Urine Turbidity Clear (Clear) Urine pH 6.0 (5.0-7.0) Ur Specific [place] 1.010 (1.003-1.030) Urine Protein 100 mg/dl (Negative) mg/dL Urine Glucose (UA) Neg (Negative) mg/dL Urine Ketones Neg (Negative) mg/dL Urine Blood Sm (Negative) Urine Nitrite Neg (Negative) Urine Bilirubin Neg (Negative) Urine Urobilinogen < 2.0 (<2.0) mg/dL Ur Leukocyte Esterase Neg (Negative) Urine WBC (Auto) 1.0 (0.0-6.0) /HPF Urine RBC (Auto) 2.0 (0.0-6.0) /HPF U Epithel Cells (Auto) 3.0 (0-13.0) /HPF Urine Opiates Screen Presumptive negative Urine Methadone Screen Presumptive negative Ur Barbiturates Screen Presumptive negative Ur Phencyclidine Scrn Presumptive negative Ur Amphetamines Screen Presumptive negative U Benzodiazepines Scrn Presumptive negative Urine Cocaine Screen Presumptive negative U Marijuana (THC) Screen Presumptive negative Drugs of Abuse Note Disclamer - Consultations Consultation #1: 01/02/20 12:03 Patient was seen by the telemedicine neurologist, Dr. Muniz, immediately upon arrival to the emergency department and after the patient had the CT imaging of his head. As the patient had the symptoms either since last night, or woke up with the symptoms, he is outside of the window for TPA. He does not recommend CT angiography studies of the head and neck. He does recommend admission for further CVA work-up. ED Medical Decision Making - Lab Data Result diagrams: 01/02/20 12:30 01/02/20 12:30 - Radiology Data Radiology results: report reviewed CT head/brain wo con INDICATION: Headache. TECHNIQUE: Routine CT head. All CT scans at this location are performed using CT dose reduction for ALARA by means of automated exposure control. COMPARISON: None. FINDINGS: Intracranial: Small punctate area of hypoattenuation in the right cerebellar infarction seen on image 5 of series 2. This is not well-visualized and coronal or sagittal view. Possible remote left lacunar posterior inferior cerebellar infarction. Encephalomalacia in the right high frontal lobe from prior infarction.. Hartmann- white matter differentiation is maintained. No intracranial hemorrhage. No extra axial collection.. No hydrocephalus. No herniation. Sinuses: Paranasal sinuses and mastoid air cells are essentially clear. Orbits: Globes are intact. Calvarium: No acute fracture. IMPRESSION: 1. Possible age-indeterminate punctate infarction in the right cerebellum. Can consider MRI if clinically indicated. 2. Remote right frontal infarct. - Medical Decision Making This patient presents to the emergency department with the complaint of bilateral upper extremity numbness and numbness to the mouth and tongue. Patient does have some visible weakness to all extremities but the patient is adamant that this is chronic secondary to his childhood history of polio. He has some mild dysarthria but this also appears secondary to the patient having numbness of the mouth and tongue. CT scan of the head did not show any hemorr salazar or large territorial infarct. At first the radiologist read a possible age-indeterminate punctate infarction of the right cerebellum but later made an addendum that this was more likely to be volume averaging. Patient's labs shows anemia with hemoglobin of 7.5, mild hyperkalemia, and chronic kidney disease. Patient will be admitted to the hospital for further evaluation and treatment and was accepted for admission by the hospitalist, Dr. Mcclelland. Critical Care Time: Yes Critical care time in (mins) excluding proc time.: 35 Critical care attestation.: If time is entered above; I have spent that time in minutes in the direct care of this critically ill patient, excluding procedure time. Critical care time was spent on this patient in doing his initial evaluation, multiple reevaluations, ordering and interpretation of labs and imaging, discussion with the radiologist and teleneurologist, discussions with the patient. Critical Care Time: 35 minutes ED Disposition Clinical Impression: Hyperkalemia CVA (cerebral vascular accident) Qualifiers: CVA mechanism: unspecified Qualified Code(s): I63.9 - Cerebral infarction, unspecified CKD (chronic kidney disease) Qualifiers: Chronic kidney disease stage: unspecified stage Qualified Code(s): N18.9 - Chronic kidney disease, unspecified Hypertension Qualifiers: Hypertension type: essential hypertension Qualified Code(s): I10 - Essential (primary) hypertension Disposition: 09 OP ADMIT IP TO THIS HOSP Is pt being admited?: Yes Condition: Serious Time of Disposition: 13:47
[2020-01-02 13:07] LABS: Calcium 7.8 mg/dL (8.4-10.2); Creatine Kinase MB 4.8 ng/mL (0.0-4.0)
[2020-01-02] MEDS ORDERED: SODIUM POLYSTYRENE 15 GM/60 ML ORAL LIQD PO ONE (13:11)
[2020-01-02 15:12] LABS: Bilirubin,Urine NEG (Negative); Blood,Urine SM (Negative); Color,Urine Straw (Yellow); Urobilinogen,Urine < 2.0 mg/dL (<2.0)
[2020-01-02 16:03] LABS: Amphetamine Screen,Urine PRESUMPTIVE NEGATIVE; Benzodiazepines Screen,Urine PRESUMPTIVE NEGATIVE; Cannabinoid Screen,Urine PRESUMPTIVE NEGATIVE; Cocaine Screen,Urine PRESUMPTIVE NEGATIVE; Methadone Screen,Urine PRESUMPTIVE NEGATIVE; Opiate Screen,Urine PRESUMPTIVE NEGATIVE
--- NOTE | 2020-01-02 23:14 | History and Physical Report ---
History of Present Illness Date of examination: 01/02/20 Date of admission: 01/02/20 18:33 Chief complaint: Slurred speech and generalized weakness since a.m. History of present illness: 75-year-old male with history of polio affecting left side with weakness and num bness comes in for slurred speech and generalized weakness. This happened around 7 AM in the morning. Code stroke was called. Patient has a previous history of CVA with left-sided weakness and CHF diabetes and hypertension. Slurred speech has improved while in the emergency room. Code stroke was called. Patient being admitted as TIA. For observation and MRI. - Past Medical History Previous Medical History?: Yes Hx Hypertension: Yes Hx CVA: Yes (Left side deficit) Hx Congestive Heart Failure: Yes Hx Diabetes: Yes Hx Arthritis: Yes Hx Tuberculosis: Yes Additional medical 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 - Surgical History Additional Surgical History: Right shoulder surgery - Social History Smoking Status: Unknown if ever smoked Substance Use Type: None - Medications Home Medications: Home Medications Medication Instructions Recorded Confirmed Last Taken Type Famotidine [Pepcid] 20 mg PO DAILY #30 tablet 08/19/18 09/10/19 Unknown Rx Hydralazine HCl 50 mg PO TID #90 tablet 08/19/18 09/10/19 Unknown Rx NIFEdipine XL [Procardia Xl] 90 mg PO QDAY #30 tablet 08/19/18 09/10/19 Unknown Rx Folic Acid [Folvite] 1 mg PO QDAY #30 tablet 11/01/18 09/10/19 Unknown Rx Multivitamin Tab [Multiple Vitamin 1 each PO QDAY #30 tablet 11/01/18 09/10/19 Unknown Rx TAB (Theragran)] Thiamine [Vitamin B-1] 100 mg PO QDAY #30 tablet 11/01/18 09/10/19 Unknown Rx Aspirin [Aspirin BABY CHEW TAB] 81 mg PO QDAY #30 tab.chew 04/07/19 09/10/19 Unknown Rx AtorvaSTATin [Lipitor] 40 mg PO QHS #30 tablet 04/07/19 09/10/19 Unknown Rx polyethylene glycoL 3350 [Miralax 17 gm PO QDAY PRN #30 powd.pack 04/07/19 09/10/19 Unknown Rx 3350] Review of Systems ROS: Stated complaint: NUMB AR/NECK/UNSTEADY GATE Other details as noted in HPI Comment: All other systems reviewed and negative Constitutional: denies: fever Eyes: denies: eye pain, vision change ENT: denies: ear pain, throat pain Respiratory: denies: cough, shortness of breath Cardiovascular: denies: chest pain, palpitations Gastrointestinal: denies: abdominal pain, vomiting Genitourinary: denies: dysuria, discharge Musculoskeletal: denies: back pain, arthralgia Skin: denies: rash, lesions Neurological: weakness, numbness. denies: headache Medications and Allergies Allergies Allergy/AdvReac Type Severity Reaction Status Date / Time No Known Allergies Allergy Verified 10/31/18 14:50 Home Medications Medication Instructions Recorded Confirmed Last Taken Type Famotidine [Pepcid] 20 mg PO DAILY #30 tablet 08/19/18 09/10/19 Unknown Rx Hydralazine HCl 50 mg PO TID #90 tablet 08/19/18 09/10/19 Unknown Rx NIFEdipine XL [Procardia Xl] 90 mg PO QDAY #30 tablet 08/19/18 09/10/19 Unknown Rx Folic Acid [Folvite] 1 mg PO QDAY #30 tablet 11/01/18 09/10/19 Unknown Rx Multivitamin Tab [Multiple Vitamin 1 each PO QDAY #30 tablet 11/01/18 09/10/19 Unknown Rx TAB (Theragran)] Thiamine [Vitamin B-1] 100 mg PO QDAY #30 tablet 11/01/18 09/10/19 Unknown Rx Aspirin [Aspirin BABY CHEW TAB] 81 mg PO QDAY #30 tab.chew 04/07/19 09/10/19 Unknown Rx AtorvaSTATin [Lipitor] 40 mg PO QHS #30 tablet 04/07/19 09/10/19 Unknown Rx polyethylene glycoL 3350 [Miralax 17 gm PO QDAY PRN #30 powd.pack 04/07/19 09/10/19 Unknown Rx 3350] Exam - Constitutional Vitals: Temp Pulse Resp BP Pulse Ox 98.3 F 42 L 14 178/68 100 01/02/20 12:07 01/02/20 19:15 01/02/20 19:15 01/02/20 19:15 01/02/20 19:15 General appearance: Present: no acute distress, well-nourished - EENT Eyes: Present: PERRL ENT: hearing intact, clear oral mucosa - Neck Neck: Present: supple, normal ROM - Respiratory Respiratory effort: normal Respiratory: bilateral: CTA - Cardiovascular Heart rate: 78 Rhythm: regular Heart Sounds: Present: S1 & S2. Absent: rub, click - Extremities Extremities: pulses symmetrical, No edema Peripheral Pulses: within normal limits - Abdominal General gastrointestinal: Present: soft, non-tender, non-distended, normal bowel sounds Male genitourinary: Present: normal - Integumentary Integumentary: Present: clear, warm, dry - Musculoskeletal Musculoskeletal: left sided weakness, generalized weakness - Psychiatric Psychiatric: appropriate mood/affect, intact judgment & insight - Neurologic Neurologic: CNII-XII intact, focal deficits (Left-sided weakness) - Allied Health Allied health notes reviewed: nursing, case management HEART Score - HEART Score Troponin: Troponin T 0.024 ng/mL (0.00-0.029) 01/02/20 12:30 Results - Labs CBC & Chem 7: 01/02/20 12:30 01/02/20 12:30 Labs: Laboratory Last Values WBC 3.9 K/mm3 (4.5-11.0) L 01/02/20 12:30 RBC 2.53 M/mm3 (3.65-5.03) L 01/02/20 12:30 Hgb 7.5 gm/dl (11.8-15.2) L 01/02/20 12:30 Hct 21.8 % (35.5-45.6) L 01/02/20 12:30 MCV 86 fl (84-94) 01/02/20 12:30 MCH 30 pg (28-32) 01/02/20 12:30 MCHC 35 % (32-34) H 01/02/20 12:30 RDW 15.0 % (13.2-15.2) 01/02/20 12:30 Plt Count 267 K/mm3 (140-440) 01/02/20 12:30 Lymph % (Auto) 30.9 % (13.4-35.0) 01/02/20 12:30 [place] % (Auto) 6.8 % (0.0-7.3) 01/02/20 12:30 Eos % (Auto) 5.4 % (0.0-4.3) H 01/02/20 12:30 Baso % (Auto) 1.8 % (0.0-1.8) 01/02/20 12:30 Lymph # (Auto) 1.2 K/mm3 (1.2-5.4) 01/02/20 12:30 [place] # (Auto) 0.3 K/mm3 (0.0-0.8) 01/02/20 12:30 Eos # (Auto) 0.2 K/mm3 (0.0-0.4) 01/02/20 12:30 Baso # (Auto) 0.1 K/mm3 (0.0-0.1) 01/02/20 12:30 Seg Neutrophils % 55.1 % (40.0-70.0) 01/02/20 12:30 Seg Neutrophils # 2.1 K/mm3 (1.8-7.7) 01/02/20 12:30 PT 14.3 Sec. (12.2-14.9) 01/02/20 12:30 INR 1.10 (0.87-1.13) 01/02/20 12:30 APTT 26.8 Sec. (24.2-36.6) 01/02/20 12:30 Thrombin Time 17.8 Sec. (15.1-19.6) 01/02/20 12:30 Sodium 145 mmol/L (137-145) 01/02/20 12:30 Potassium 5.4 mmol/L (3.6-5.0) H 01/02/20 12:30 Chloride 111.6 mmol/L (98-107) H 01/02/20 12:30 Carbon Dioxide 20 mmol/L (22-30) L 01/02/20 12:30 Anion Gap 19 mmol/L 01/02/20 12:30 BUN 61 mg/dL (9-20) H 01/02/20 12:30 Creatinine 4.8 mg/dL (0.8-1.3) H 01/02/20 12:30 Estimated GFR 15 ml/min 01/02/20 12:30 BUN/Creatinine Ratio 13 % 01/02/20 12:30 Glucose 94 mg/dL (75-100) 01/02/20 12:30 POC Glucose 120 mg/dL (70-105) H 01/02/20 22:46 Calcium 7.8 mg/dL (8.4-10.2) L 01/02/20 12:30 Total Bilirubin 0.30 mg/dL (0.1-1.2) 01/02/20 12:30 AST 12 units/L (5-40) 01/02/20 12:30 ALT 9 units/L (7-56) 01/02/20 12:30 Alkaline Phosphatase 70 units/L (35-129) 01/02/20 12:30 Total Creatine Kinase 274 units/L (55-170) H 01/02/20 12:30 CK-MB (CK-2) 4.8 ng/mL (0.0-4.0) H 01/02/20 12:30 CK-MB (CK-2) Rel Index 1.7 (0-4) 01/02/20 12:30 Troponin T 0.024 ng/mL (0.00-0.029) 01/02/20 12:30 Total Protein 6.9 g/dL (6.3-8.2) 01/02/20 12:30 Albumin 4.0 g/dL (3.9-5) 01/02/20 12:30 Albumin/Globulin Ratio 1.4 % 01/02/20 12:30 TSH 1.620 mlU/mL (0.270-4.200) 01/02/20 12:30 Urine Color Straw (Yellow) 01/02/20 15:05 Urine Turbidity Clear (Clear) 01/02/20 15:05 Urine pH 6.0 (5.0-7.0) 01/02/20 15:05 Ur Specific [place] 1.010 (1.003-1.030) 01/02/20 15:05 Urine Protein 100 mg/dl mg/dL (Negative) 01/02/20 15:05 Urine Glucose (UA) Neg mg/dL (Negative) 01/02/20 15:05 Urine Ketones Neg mg/dL (Negative) 01/02/20 15:05 Urine Blood Sm (Negative) 01/02/20 15:05 Urine Nitrite Neg (Negative) 01/02/20 15:05 Urine Bilirubin Neg (Negative) 01/02/20 15:05 Urine Urobilinogen < 2.0 mg/dL (<2.0) 01/02/20 15:05 Ur Leukocyte Esterase Neg (Negative) 01/02/20 15:05 Urine WBC (Auto) 1.0 /HPF (0.0-6.0) 01/02/20 15:05 Urine RBC (Auto) 2.0 /HPF (0.0-6.0) 01/02/20 15:05 U Epithel Cells (Auto) 3.0 /HPF (0-13.0) 01/02/20 15:05 Urine Opiates Screen Presumptive negative 01/02/20 15:05 Urine Methadone Screen Presumptive negative 01/02/20 15:05 Ur Barbiturates Screen Presumptive negative 01/02/20 15:05 Ur Phencyclidine Scrn Presumptive negative 01/02/20 15:05 Ur Amphetamines Screen Presumptive negative 01/02/20 15:05 U Benzodiazepines Scrn Presumptive negative 01/02/20 15:05 Urine Cocaine Screen Presumptive negative 01/02/20 15:05 U Marijuana (THC) Screen Presumptive negative 01/02/20 15:05 Drugs of Abuse Note Disclamer 01/02/20 15:05 - Imaging and Cardiology EKG: report reviewed CT Scan - head: report reviewed Marrufo/IV: IV Catheter Type [Left Hand] INT / Saline Lock Assessment and Plan Advance Directives: Yes (Full code) VTE prophylaxis?: Chemical Plan of care discussed with patient/family: Yes - Patient Problems (1) TIA (transient ischemic attack) Current Visit: Yes Status: Acute Plan to address problem: TIA work-up MRI brain and carotid duplex scan (2) Bradycardia Current Visit: Yes Status: Acute Plan to address problem: Cardiology consult requested Patient is stable otherwise (3) Hyperkalemia Current Visit: Yes Status: Acute Plan to address problem: Treated with calcium gluconate Mild (4) Chronic kidney disease Current Visit: Yes Status: Acute Plan to address problem: Nephrology consult requested (5) HTN (hypertension) Current Visit: Yes Status: Chronic Qualifiers: Hypertension type: essential hypertension Qualified Code(s): I10 - Essential (primary) hypertension Plan to address problem: Continue antihypertensive (6) DVT prophylaxis Current Visit: No Status: Acute Plan to address problem: On heparin and GI prophylaxis
[2020-01-02] MEDS ORDERED: POLYETHYLENE GLYCOL 3350 17 GM POWDER PO PRN (23:18)
[2020-01-02] MEDS ORDERED: ACETAMINOPHEN 325 MG TAB PO PRN (23:19)
[2020-01-02] MEDS ORDERED: HYDROmorphone 1 MG/1 ML INJ IV PRN (23:19)
[2020-01-02] MEDS ORDERED: oxyCODONE /ACETAMINOPHEN 5-325MG TAB PO PRN (23:19)
[2020-01-03] MEDS: hydrALAZINE 25 MG TAB PO SCH ×3 (08:00→21:16)
[2020-01-03] MEDS ORDERED: NON-FORMULARY EACH (Hydralazine Hcl [Hydralazine Hcl] 50 MG) PO SCH (08:00)
[2020-01-03 08:20] LABS: Albumin 3.7 g/dL (3.9-5); Calcium 7.9 mg/dL (8.4-10.2)
[2020-01-03] MEDS: FAMOTIDINE 20 MG TAB PO SCH (09:08)
[2020-01-03] MEDS: ASPIRIN 81 MG TAB CHEW PO SCH (09:09)
[2020-01-03] MEDS: MULTIVITAMINS ,THERAPEUTIC TAB PO SCH (09:10)
[2020-01-03] MEDS: NIFEdipine XL 90 MG TAB PO SCH (09:10)
[2020-01-03] MEDS: FOLIC ACID 1 MG TAB PO SCH (09:10)
[2020-01-03] MEDS: THIAMINE 100 MG TAB PO SCH (09:10)
[2020-01-03] MEDS: HEPARIN 5,000 UNIT/1 ML VIAL SUB-Q SCH ×2 (09:10→21:15)
--- NOTE | 2020-01-03 11:07 | Progress Note ---
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 His symptoms got worse upon waking up on the morning of presentation so he decided to come to the hospital for further evaluation. The patient also has a history of polio as a child that left him with upper and lower extremity weakness and lower extremity numbness. The patient says he does walk with a walker. He denies any headache, vision change, fever, nausea, vomiting, back pain, shortness of breath. He does feel like he is having some difficulty with his speech because he feels that his tongue is numb. In the ER, CT head was negative for any stroke and he was seen by neurologist recommended an MRI of the brain. His vitals in the ER was consistent with bradycardia. Cardiology was consulted for further evaluation. His labs showed anemia with a hemoglobin of 7.5, hyperkalemia and renal failure. Nephrology has been consulted for further evaluation 01/02. Patient seen and examined at bedside this morning. She will get an MRI of the brain today to rule out CVA. He has chronic anemia which is most likely from his CKD. Labs this a.m. showed hyperkalemia with a creatinine 4.8 which is close to baseline Cr of 4.5 3 months ago. Nephrology has been consulted Problems -- TIA (transient ischemic attack) Current Visit: Yes Status: Acute Plan to address problem: TIA work-up MRI brain and carotid duplex scan -- Bradycardia Current Visit: Yes Status: Acute Plan to address problem: Has sinus bradycardia. Patient not on any beta-philippe or AV jacqui blocking agents Telemetry shows no pauses Cardiology consult requested on admission Patient is stable otherwise -- Hyperkalemia Current Visit: Yes Status: Acute Plan to address problem: This is from his CKD Start [employer] Nephrology on board --Chronic anemia Current Visit: No Status: Acute Plan to address problem: Likely from CKD Monitor hemoglobin ---Chronic kidney disease Current Visit: Yes Status: Acute Plan to address problem: Baseline creatinine from 09/2019 shows creatinine 4.5 Creatinine 4.8 in the ER this admission. Patient was seen by exercise science internship a couple of months ago and there was no indication for renal replacement therapy at that time Nephrology consulted from the ER ---HTN (hypertension) Current Visit: Yes Status: Chronic Qualifiers: Hypertension type: essential hypertension Qualified Code(s): I10 - Essential (primary) hypertension Plan to address problem: Continue antihypertensive medications ---DVT prophylaxis Current Visit: No Status: Acute Plan to address problem: On heparin and GI prophylaxis History Interval history: Patient seen and examined at bedside this morning. Plan for MRI of the brain to rule out any CVA. Heart rate in the 40s to 50s. Telemetry shows sinus stuart - no pauses on telemetry. Cardiology consulted. Has a history of CKD. Nephrology consult placed. Hospitalist Physical - Physical exam Narrative exam: VITAL SIGNS: Reviewed. GENERAL: Awake and alert on response to questions HEAD: No signs of head trauma. EYES: Pupils are equal. Extraocular motions intact. EARS: Hearing grossly intact. MOUTH: Oropharynx is normal. NECK: No adenopathy, no JVD. CHEST: Chest with diminished breath sounds bilaterally. No wheezes, rales, or rhonchi. CARDIAC: Regular rate and rhythm. S1 and S2, without murmurs, gallops, or rubs. VASCULAR: No Edema. Peripheral pulses normal and equal in all extremities. ABDOMEN: Soft, non tender and non distended. No rebound or guarding, and no masses palpated. Bowel Sounds normal. MUSCULOSKELETAL: Good range of motion of all major joints. Extremities without clubbing, cyanosis or edema. NEUROLOGIC EXAM: Alert and oriented x3. No focal neurologic deficits PSYCHIATRIC: Stable mood SKIN: No obvious lesions - Constitutional Vitals: Temp Pulse Resp BP Pulse Ox 98.1 F 49 L 18 164/88 99 01/03/20 07:25 01/03/20 10:00 01/03/20 10:00 01/03/20 08:00 01/03/20 10:00 HEART Score - HEART Score Troponin: Troponin T 0.024 ng/mL (0.00-0.029) 01/02/20 12:30 Results - Labs CBC & Chem 7: 01/02/20 12:30 01/03/20 06:45 Labs: Laboratory Last Values WBC 3.9 K/mm3 (4.5-11.0) L 01/02/20 12:30 RBC 2.53 M/mm3 (3.65-5.03) L 01/02/20 12:30 Hgb 7.5 gm/dl (11.8-15.2) L 01/02/20 12:30 Hct 21.8 % (35.5-45.6) L 01/02/20 12:30 MCV 86 fl (84-94) 01/02/20 12:30 MCH 30 pg (28-32) 01/02/20 12:30 MCHC 35 % (32-34) H 01/02/20 12:30 RDW 15.0 % (13.2-15.2) 01/02/20 12:30 Plt Count 267 K/mm3 (140-440) 01/02/20 12:30 Lymph % (Auto) 30.9 % (13.4-35.0) 01/02/20 12:30 [place] % (Auto) 6.8 % (0.0-7.3) 01/02/20 12:30 Eos % (Auto) 5.4 % (0.0-4.3) H 01/02/20 12:30 Baso % (Auto) 1.8 % (0.0-1.8) 01/02/20 12:30 Lymph # (Auto) 1.2 K/mm3 (1.2-5.4) 01/02/20 12:30 [place] # (Auto) 0.3 K/mm3 (0.0-0.8) 01/02/20 12:30 Eos # (Auto) 0.2 K/mm3 (0.0-0.4) 01/02/20 12:30 Baso # (Auto) 0.1 K/mm3 (0.0-0.1) 01/02/20 12:30 Seg Neutrophils % 55.1 % (40.0-70.0) 01/02/20 12:30 Seg Neutrophils # 2.1 K/mm3 (1.8-7.7) 01/02/20 12:30 PT 14.3 Sec. (12.2-14.9) 01/02/20 12:30 INR 1.10 (0.87-1.13) 01/02/20 12:30 APTT 26.8 Sec. (24.2-36.6) 01/02/20 12:30 Thrombin Time 17.8 Sec. (15.1-19.6) 01/02/20 12:30 Sodium 147 mmol/L (137-145) H 01/03/20 06:45 Potassium 5.2 mmol/L (3.6-5.0) H 01/03/20 06:45 Chloride 114.0 mmol/L (98-107) H 01/03/20 06:45 Carbon Dioxide 21 mmol/L (22-30) L 01/03/20 06:45 Anion Gap 17 mmol/L 01/03/20 06:45 BUN 56 mg/dL (9-20) H 01/03/20 06:45 Creatinine 4.6 mg/dL (0.8-1.3) H 01/03/20 06:45 Estimated GFR 15 ml/min 01/03/20 06:45 BUN/Creatinine Ratio 12 % 01/03/20 06:45 Glucose 84 mg/dL (75-100) 01/03/20 06:45 POC Glucose 118 mg/dL (70-105) H 01/03/20 07:50 Hemoglobin A1c < 4.0 % (4-6) L 01/03/20 06:45 Calcium 7.9 mg/dL (8.4-10.2) L 01/03/20 06:45 Total Bilirubin 0.20 mg/dL (0.1-1.2) 01/03/20 06:45 AST 10 units/L (5-40) 01/03/20 06:45 ALT 8 units/L (7-56) 01/03/20 06:45 Alkaline Phosphatase 67 units/L (35-129) 01/03/20 06:45 Total Creatine Kinase 274 units/L (55-170) H 01/02/20 12:30 CK-MB (CK-2) 4.8 ng/mL (0.0-4.0) H 01/02/20 12:30 CK-MB (CK-2) Rel Index 1.7 (0-4) 01/02/20 12:30 Troponin T 0.024 ng/mL (0.00-0.029) 01/02/20 12:30 Total Protein 6.8 g/dL (6.3-8.2) 01/03/20 06:45 Albumin 3.7 g/dL (3.9-5) L 01/03/20 06:45 Albumin/Globulin Ratio 1.2 % 01/03/20 06:45 TSH 1.620 mlU/mL (0.270-4.200) 01/02/20 12:30 Urine Color Straw (Yellow) 01/02/20 15:05 Urine Turbidity Clear (Clear) 01/02/20 15:05 Urine pH 6.0 (5.0-7.0) 01/02/20 15:05 Ur Specific [place] 1.010 (1.003-1.030) 01/02/20 15:05 Urine Protein 100 mg/dl mg/dL (Negative) 01/02/20 15:05 Urine Glucose (UA) Neg mg/dL (Negative) 01/02/20 15:05 Urine Ketones Neg mg/dL (Negative) 01/02/20 15:05 Urine Blood Sm (Negative) 01/02/20 15:05 Urine Nitrite Neg (Negative) 01/02/20 15:05 Urine Bilirubin Neg (Negative) 01/02/20 15:05 Urine Urobilinogen < 2.0 mg/dL (<2.0) 01/02/20 15:05 Ur Leukocyte Esterase Neg (Negative) 01/02/20 15:05 Urine WBC (Auto) 1.0 /HPF (0.0-6.0) 01/02/20 15:05 Urine RBC (Auto) 2.0 /HPF (0.0-6.0) 01/02/20 15:05 U Epithel Cells (Auto) 3.0 /HPF (0-13.0) 01/02/20 15:05 Urine Opiates Screen Presumptive negative 01/02/20 15:05 Urine Methadone Screen Presumptive negative 01/02/20 15:05 Ur Barbiturates Screen Presumptive negative 01/02/20 15:05 Ur Phencyclidine Scrn Presumptive negative 01/02/20 15:05 Ur Amphetamines Screen Presumptive negative 01/02/20 15:05 U Benzodiazepines Scrn Presumptive negative 01/02/20 15:05 Urine Cocaine Screen Presumptive negative 01/02/20 15:05 U Marijuana (THC) Screen Presumptive negative 01/02/20 15:05 Drugs of Abuse Note Disclamer 01/02/20 15:05 Marrufo/IV: Voiding Method Condom Catheter IV Catheter Type [Left Hand] INT / Saline Lock Active Medications - Current Medications Current Medications: Generic Name Dose Route Start Last Admin Trade Name Freq PRN Reason Stop Dose Admin Acetaminophen 650 mg 01/02/20 23:19 Tylenol PO Q4H PRN Pain MILD(1-3)/Fever >100.5/LIRA Aspirin 81 mg 01/03/20 10:00 01/03/20 09:09 Baby Aspirin PO 81 mg QDAY MICHA Administration Atorvastatin Calcium 40 mg 01/03/20 22:00 Lipitor PO QHS MICHA Famotidine 20 mg 01/03/20 10:00 01/03/20 09:08 Pepcid PO 20 mg DAILY MICHA Administration Folic Acid 1 mg 01/03/20 10:00 01/03/20 09:10 Folvite PO 1 mg QDAY MICHA Administration Heparin Sodium (Porcine) 5,000 unit 01/03/20 10:00 01/03/20 09:10 Heparin SUB-Q 5,000 unit Q12HR MICHA Administration Hydralazine HCl 50 mg 01/03/20 08:00 01/03/20 08:00 Apresoline PO 50 mg TID MICHA Administration Hydromorphone HCl 0.5 mg 01/02/20 23:19 Dilaudid IV Q3H PRN Pain , Severe (7-10) Sodium Chloride 1,000 mls @ 75 mls/hr 01/02/20 23:30 Nacl 0.9% 1000 Ml IV DIRECT MICHA Multivitamins 1 each 01/03/20 10:00 01/03/20 09:10 Theragran Tab PO 1 each QDAY MICHA Administration Nifedipine 90 mg 01/03/20 10:00 01/03/20 09:10 Procardia Xl PO 90 mg QDAY MICHA Administration Ondansetron HCl 4 mg 01/02/20 23:19 Zofran IV Q8H PRN Nausea And Vomiting Oxycodone/Acetaminophen 1 tab 01/02/20 23:19 Percocet 5/325 PO Q6H PRN Pain, Moderate (4-6) Polyethylene Glycol 17 gm 01/02/20 23:18 Miralax 3350 PO QDAY PRN Constipation Sodium Chloride 10 ml 01/03/20 10:00 01/03/20 09:10 Sodium Chloride Flush Syringe 10 Ml IV 10 ml BID MICHA Administration Sodium Chloride 10 ml 01/02/20 23:19 Sodium Chloride Flush Syringe 10 Ml IV PRN PRN LINE FLUSH Thiamine HCl 100 mg 01/03/20 10:00 01/03/20 09:10 Vitamin B-1 PO 100 mg QDAY MICHA Administration
--- NOTE | 2020-01-03 12:21 | Consultation ---
History of Present Illness Consult date: 01/03/20 Consult reason: bradycardia History of present illness: Patient is a 74-year-old man with chronic hypertension, previous CVA, who re ceives his usual care at [facility]. He has had extensive previous cardiac work- up in this hospital including a cardiac catheterization 5 years ago that reported angiographically normal coronary arteries. A follow-up thallium stress test 8 months ago was normal. He has had serial left ventricular function assessment, with the most recent echocardiogram a year ago was normal ejection fraction 65%. He presents to the hospital at this time with complaints of numbness in both arms, numbness in his throat, numbness in his tongue and mild weakness in both legs. His complaints did not refer to any focal neurological findings. There was no chest pain, no shortness of breath, no palpitations and no other cardiac complaints. He was seen in the emergency room and referred for admission. Cardiology consultation was requested for the finding of a persistent bradycardia. His ECG on presentation was a sinus bradycardia at 45. There was left ventricular hypertrophy with repolarization abnormalities of LVH. My review of his previous ECGs dating back several years show the LVH and repolarization abnormalities to be unchanged. His most recent ECG 2 months ago also showed a sinus bradycardia at that time his heart rate was 53. Home medications for hypertension do not include a significant AV jacqui philippe, and his TSH is normal at 1.6. Most significant laboratory findings on this presentation is severe anemia hematocrit of 21 (was previously 30), and worsening renal failure with a creatinine of 4.6 (was previously 2.4). Past History Past Medical History: hypertension, stroke Medications and Allergies Allergies Allergy/AdvReac Type Severity Reaction Status Date / Time No Known Allergies Allergy Verified 10/31/18 14:50 Home Medications Medication Instructions Recorded Confirmed Last Taken Type Famotidine [Pepcid] 20 mg PO DAILY #30 tablet 08/19/18 09/10/19 Unknown Rx Hydralazine HCl 50 mg PO TID #90 tablet 08/19/18 09/10/19 Unknown Rx NIFEdipine XL [Procardia Xl] 90 mg PO QDAY #30 tablet 08/19/18 09/10/19 Unknown Rx Folic Acid [Folvite] 1 mg PO QDAY #30 tablet 11/01/18 09/10/19 Unknown Rx Multivitamin Tab [Multiple Vitamin 1 each PO QDAY #30 tablet 11/01/18 09/10/19 Unknown Rx TAB (Theragran)] Thiamine [Vitamin B-1] 100 mg PO QDAY #30 tablet 11/01/18 09/10/19 Unknown Rx Aspirin [Aspirin BABY CHEW TAB] 81 mg PO QDAY #30 tab.chew 04/07/19 09/10/19 Unknown Rx AtorvaSTATin [Lipitor] 40 mg PO QHS #30 tablet 04/07/19 09/10/19 Unknown Rx polyethylene glycoL 3350 [Miralax 17 gm PO QDAY PRN #30 powd.pack 04/07/19 09/10/19 Unknown Rx 3350] Active Meds: Active Medications Acetaminophen (Tylenol) 650 mg PO Q4H PRN PRN Reason: Pain MILD(1-3)/Fever >100.5/LIRA Aspirin (Baby Aspirin) 81 mg PO QDAY [facility] Last Admin: 01/03/20 09:09 Dose: 81 mg Documented by: Atorvastatin Calcium (Lipitor) 40 mg PO QHS [facility] Famotidine (Pepcid) 20 mg PO DAILY [facility] Last Admin: 01/03/20 09:08 Dose: 20 mg Documented by: Folic Acid (Folvite) 1 mg PO QDAY [facility] Last Admin: 01/03/20 09:10 Dose: 1 mg Documented by: Heparin Sodium (Porcine) (Heparin) 5,000 unit SUB-Q Q12HR [facility] Last Admin: 01/03/20 09:10 Dose: 5,000 unit Documented by: Hydralazine HCl (Apresoline) 50 mg PO TID [facility] Last Admin: 01/03/20 08:00 Dose: 50 mg Documented by: Hydromorphone HCl (Dilaudid) 0.5 mg IV Q3H PRN PRN Reason: Pain , Severe (7-10) Sodium Chloride (Nacl 0.9% 1000 Ml) 1,000 mls @ 75 mls/hr IV DIRECT [facility] Multivitamins (Theragran Tab) 1 each PO QDAY [facility] Last Admin: 01/03/20 09:10 Dose: 1 each Documented by: Nifedipine (Procardia Xl) 90 mg PO QDAY [facility] Last Admin: 01/03/20 09:10 Dose: 90 mg Documented by: Ondansetron HCl (Zofran) 4 mg IV Q8H PRN PRN Reason: Nausea And Vomiting Oxycodone/Acetaminophen (Percocet 5/325) 1 tab PO Q6H PRN PRN Reason: Pain, Moderate (4-6) Polyethylene Glycol (Miralax 3350) 17 gm PO QDAY PRN PRN Reason: Constipation Sodium Chloride (Sodium Chloride Flush Syringe 10 Ml) 10 ml IV BID [facility] Last Admin: 01/03/20 09:10 Dose: 10 ml Documented by: Sodium Chloride (Sodium Chloride Flush Syringe 10 Ml) 10 ml IV PRN PRN PRN Reason: LINE FLUSH Thiamine HCl (Vitamin B-1) 100 mg PO QDAY [facility] Last Admin: 01/03/20 09:10 Dose: 100 mg Documented by: Review of Systems Cardiovascular: no chest pain, no orthopnea, no palpitations, no rapid/irregular heart beat, no edema, no syncope, no lightheadedness, no shortness of breath Physical Examination Vital Signs Resp Pulse Ox 18 96 01/02/20 12:00 01/02/20 12:00 General appearance: no acute distress HEENT: Positive: PERRL Neck: Positive: neck supple Cardiac: Positive: Regular Rhythm Lungs: Positive: clear to auscultation Neuro: Positive: Grossly Intact Abdomen: Positive: Soft Male genitourinary: Positive: deferred Skin: Positive: Clear Extremities: Absent: edema Results 01/02/20 12:30 01/03/20 06:45 Cardiac Enzymes 01/02/20 01/03/20 Range/Units 12:30 06:45 AST 12 10 (5-40) units/L CK-MB (CK-2) 4.8 H (0.0-4.0) ng/mL Coagulation 01/02/20 Range/Units 12:30 PT 14.3 (12.2-14.9) Sec. INR 1.10 (0.87-1.13) APTT 26.8 (24.2-36.6) Sec. CBC 01/02/20 Range/Units 12:30 WBC 3.9 L (4.5-11.0) K/mm3 RBC 2.53 L (3.65-5.03) M/mm3 Hgb 7.5 L (11.8-15.2) gm/dl Hct 21.8 L (35.5-45.6) % Plt Count 267 (140-440) K/mm3 Lymph # (Auto) 1.2 (1.2-5.4) K/mm3 [place] # (Auto) 0.3 (0.0-0.8) K/mm3 Eos # (Auto) 0.2 (0.0-0.4) K/mm3 Baso # (Auto) 0.1 (0.0-0.1) K/mm3 Comprehensive Metabolic Panel 01/02/20 01/03/20 Range/Units 12:30 06:45 Sodium 145 147 H (137-145) mmol/L Potassium 5.4 H 5.2 H (3.6-5.0) mmol/L Chloride 111.6 H 114.0 H (98-107) mmol/L Carbon Dioxide 20 L 21 L (22-30) mmol/L BUN 61 H 56 H (9-20) mg/dL Creatinine 4.8 H 4.6 H (0.8-1.3) mg/dL Glucose 94 84 (75-100) mg/dL Calcium 7.8 L 7.9 L (8.4-10.2) mg/dL AST 12 10 (5-40) units/L ALT 9 8 (7-56) units/L Alkaline Phosphatase 70 67 (35-129) units/L Total Protein 6.9 6.8 (6.3-8.2) g/dL Albumin 4.0 3.7 L (3.9-5) g/dL EKG interpretations - Telemetry EKG Rhythm: Sinus Bradycardia (With left ventricle hypertrophy and repolarization abnormalities of LVH) Assessment and Plan - Patient Problems (1) Bradycardia Current Visit: Yes Status: Acute Plan to address problem: Patient presents with constitutional symptoms of generalized numbness and weakness, severe anemia and worsening renal failure. He is found with asymptomatic sinus bradycardia with a heart rate in the mid to high 40s. TSH level is normal. We will continue to monitor heart rate conservatively, avoid AV jacqui blocking agents or sinus node depressants. Otherwise, no further cardiac work-up is indicated.
--- NOTE | 2020-01-03 15:09 | Consultation ---
History of Present Illness - Reason for Consult Consult date: 01/03/20 - History of Present Illness This is a 75 year old male who presented to the hospital with a chief complaint of weakness and slurred speech. Patient is diagnosed with having a TIA. Patient reports not able to move his hands to feed himself and reports poor oral intake over the last few days. Patient reports also having crippling arthritic pains to joints. Pertinent labs revealed a serum creatinine of 4.8 on admission. Baseline serum creatinine ~3. Patient has history of CKD stage 3-4, Hypertension and Diabetes Mellitus. We are being consulted for management of this patient's Acute on Chronic Kidney Disease. Past History Past Medical History: arthritis, diabetes, hypertension, renal failure, stroke Past Surgical History: No surgical history Social history: no significant social history Family history: no significant family history Medications and Allergies Allergies Allergy/AdvReac Type Severity Reaction Status Date / Time No Known Allergies Allergy Verified 10/31/18 14:50 Home Medications Medication Instructions Recorded Confirmed Last Taken Type Famotidine [Pepcid] 20 mg PO DAILY #30 tablet 08/19/18 09/10/19 Unknown Rx Hydralazine HCl 50 mg PO TID #90 tablet 08/19/18 09/10/19 Unknown Rx NIFEdipine XL [Procardia Xl] 90 mg PO QDAY #30 tablet 08/19/18 09/10/19 Unknown Rx Folic Acid [Folvite] 1 mg PO QDAY #30 tablet 11/01/18 09/10/19 Unknown Rx Multivitamin Tab [Multiple Vitamin 1 each PO QDAY #30 tablet 11/01/18 09/10/19 Unknown Rx TAB (Theragran)] Thiamine [Vitamin B-1] 100 mg PO QDAY #30 tablet 11/01/18 09/10/19 Unknown Rx Aspirin [Aspirin BABY CHEW TAB] 81 mg PO QDAY #30 tab.chew 04/07/19 09/10/19 Unknown Rx AtorvaSTATin [Lipitor] 40 mg PO QHS #30 tablet 04/07/19 09/10/19 Unknown Rx polyethylene glycoL 3350 [Miralax 17 gm PO QDAY PRN #30 powd.pack 04/07/19 09/10/19 Unknown Rx 3350] Active Meds: Active Medications Acetaminophen (Tylenol) 650 mg PO Q4H PRN PRN Reason: Pain MILD(1-3)/Fever >100.5/LIRA Aspirin (Baby Aspirin) 81 mg PO QDAY [facility] Last Admin: 01/03/20 09:09 Dose: 81 mg Documented by: Atorvastatin Calcium (Lipitor) 40 mg PO QHS [facility] Famotidine (Pepcid) 20 mg PO DAILY [facility] Last Admin: 01/03/20 09:08 Dose: 20 mg Documented by: Folic Acid (Folvite) 1 mg PO QDAY [facility] Last Admin: 01/03/20 09:10 Dose: 1 mg Documented by: Heparin Sodium (Porcine) (Heparin) 5,000 unit SUB-Q Q12HR [facility] Last Admin: 01/03/20 09:10 Dose: 5,000 unit Documented by: Hydralazine HCl (Apresoline) 50 mg PO TID [facility] Last Admin: 01/03/20 13:19 Dose: 50 mg Documented by: Hydromorphone HCl (Dilaudid) 0.5 mg IV Q3H PRN PRN Reason: Pain , Severe (7-10) Sodium Chloride (Nacl 0.9% 1000 Ml) 1,000 mls @ 75 mls/hr IV DIRECT [facility] Multivitamins (Theragran Tab) 1 each PO QDAY [facility] Last Admin: 01/03/20 09:10 Dose: 1 each Documented by: Nifedipine (Procardia Xl) 90 mg PO QDAY [facility] Last Admin: 01/03/20 09:10 Dose: 90 mg Documented by: Ondansetron HCl (Zofran) 4 mg IV Q8H PRN PRN Reason: Nausea And Vomiting Oxycodone/Acetaminophen (Percocet 5/325) 1 tab PO Q6H PRN PRN Reason: Pain, Moderate (4-6) Polyethylene Glycol (Miralax 3350) 17 gm PO QDAY PRN PRN Reason: Constipation Sodium Chloride (Sodium Chloride Flush Syringe 10 Ml) 10 ml IV BID [facility] Last Admin: 01/03/20 09:10 Dose: 10 ml Documented by: Sodium Chloride (Sodium Chloride Flush Syringe 10 Ml) 10 ml IV PRN PRN PRN Reason: LINE FLUSH Thiamine HCl (Vitamin B-1) 100 mg PO QDAY [facility] Last Admin: 01/03/20 09:10 Dose: 100 mg Documented by: Review of Systems Constitutional: fatigue, poor appetite, chronic pain, no weight loss, no weight gain, no fever, no chills Ears, nose, mouth and throat: no ear pain, no ear discharge, no tinnitis, no decreased hearing, no nose pain Cardiovascular: no chest pain, no orthopnea, no palpitations, no rapid/irregular heart beat, no edema Respiratory: no cough, no cough with sputum, no excessive sputum, no hemoptysis, no shortness of breath, no dyspnea on exertion Gastrointestinal: no abdominal pain, no nausea, no vomiting, no diarrhea, no con stipation, no change in bowel habits Genitourinary Male: no hematuria, no flank pain, no discharge, no urinary frequency, no urinary hesitancy Musculoskeletal: no neck stiffness, no neck pain, no arm numbness/tingling, no low back pain, no shooting leg pain Integumentary: no rash, no pruritis, no redness, no sores, no wounds, no jaundice Neurological: no transient paralysis, no paralysis, no weakness, no parathesias, no numbness, no tingling, no seizures Psychiatric: no anxiety, no memory loss, no change in sleep habits, no sleep disturbances, no insomnia, no hypersomnia, no change in appetite Endocrine: no cold intolerance, no heat intolerance, no polyphagia, no excessive thirst, no polydipsia, no polyuria Exam - Vital Signs Vital signs: Vital Signs Resp Pulse Ox 18 96 01/02/20 12:00 01/02/20 12:00 - General Appearance General appearance: well-developed, appears stated age, fatigue EENT: ATNC, PERRL, hearing intact, vision intact Neck: Present: neck supple, trachea midline Respiratory: Decreased Breath Sounds Heart: S1S2 Gastrointestinal: Present: normoactive bowel sounds Integumentary: warm and dry Neurologic: alert and oriented x3 Musculoskeletal: Present: other (trace edema) Results - Lab Results 01/02/20 12:30 01/03/20 06:45 Most recent lab results Calcium 7.9 mg/dL (8.4-10.2) L 01/03/20 06:45 Assessment and Plan Assessment: Acute Renal failure on possible CKD progression due to Hypertensive Nephrosclerosis and Diabetic nephropathy TIA Hyperkalemia Anemia Hypertension Plan: Renal labs reviewed. Serum creatinine 4.6 today, prior was 4.8. Baseline serum creatinine~3, likely worsening creatinine due to progression of CKD Obtain urine lytes and protein labs Continue NS@ 75 ml/hr, monitor volume status Renal US negative for obstruction on 09/10/19 Will repeat renal ultrasound given worsening renal failure S/P Kayexalate yesterday. Potassium improved. BMP in a.m Renally dose medications Strict I&O monitoring Obtain daily weights Avoid nephrotoxic agents No indication for [employer] MARKET[employer] at this time but will likely need HD in the near future Monitor renal function closely Plan of care reviewed with Dr. Dorantes
[2020-01-03] MEDS: SODIUM CHLORIDE 0.9% 1000 ML 1,000 ML IV SCH (15:35)
[2020-01-03 17:22] LABS: Creatinine,Urine 63.8 mg/dL (0.1-20.0); Protein/Creatinine Ratio,Urine 3.07
[2020-01-04] MEDS: ONDANSETRON 4 MG/2 ML INJ IV PRN ×2 (02:41→22:29)
[2020-01-04] MEDS: SODIUM CHLORIDE 0.9% 1000 ML 1,000 ML IV SCH ×2 (04:20→16:54)
[2020-01-04 06:47] LABS: Calcium 7.8 mg/dL (8.4-10.2)
[2020-01-04] MEDS ORDERED: SODIUM POLYSTYRENE 15 GM/60 ML ORAL LIQD PO ONE (07:44)
[2020-01-04] MEDS: hydrALAZINE 25 MG TAB PO SCH ×3 (08:02→21:22)
[2020-01-04] MEDS: NIFEdipine XL 90 MG TAB PO SCH (09:42)
[2020-01-04] MEDS: ASPIRIN 81 MG TAB CHEW PO SCH (09:43)
[2020-01-04] MEDS: HEPARIN 5,000 UNIT/1 ML VIAL SUB-Q SCH ×2 (09:43→21:11)
[2020-01-04] MEDS: FAMOTIDINE 20 MG TAB PO SCH (09:43)
[2020-01-04] MEDS: MULTIVITAMINS ,THERAPEUTIC TAB PO SCH (09:43)
[2020-01-04] MEDS: FOLIC ACID 1 MG TAB PO SCH (09:43)
[2020-01-04] MEDS: THIAMINE 100 MG TAB PO SCH (09:43)
--- NOTE | 2020-01-04 10:34 | Progress Note ---
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 His symptoms got worse upon waking up on the morning of presentation so he decided to come to the hospital for further evaluation. The patient also has a history of polio as a child that left him with upper and lower extremity weakness and lower extremity numbness. The patient says he does walk with a walker. He denies any headache, vision change, fever, nausea, vomiting, back pain, shortness of breath. He does feel like he is having some difficulty with his speech because he feels that his tongue is numb. In the ER, CT head was negative for any stroke and he was seen by neurologist recommended an MRI of the brain. His vitals in the ER was consistent with bradycardia. Cardiology was consulted for further evaluation. His labs showed anemia with a hemoglobin of 7.5, hyperkalemia and renal failure. Nephrology has been consulted for further evaluation 01/02. Patient seen and examined at bedside this morning. He will get an MRI of the brain today to rule out CVA. He has chronic anemia which is most likely from his CKD. Labs this a.m. showed hyperkalemia with a creatinine 4.8 which is close to baseline Cr of 4.5 3 months ago. Nephrology has been consulted 01/03. MRI brain pending. Cr bumped up today. K 5.5. Onm kayexalate. has metabolic acidosis Problems -- TIA (transient ischemic attack) Current Visit: Yes Status: Acute Plan to address problem: TIA work-up MRI brain and carotid duplex scan pending -- Bradycardia Current Visit: Yes Status: Acute Plan to address problem: Has sinus bradycardia. Patient is not on any beta-philippe or AV jacqui blocking agents Telemetry shows no pauses Cardiology recs appreciated Patient is stable otherwise -- Hyperkalemia Current Visit: Yes Status: Acute Plan to address problem: This is from his CKD Start Kayexalate Nephrology on board ---Metabolic acidosis Current Visit: Yes Status: Acute Plan to address problem: May eventually need HD Bicarbonate tabs for now. Consider switching NS to bicarb. Nephrology to evaluate --Chronic anemia Current Visit: No Status: Acute Plan to address problem: Likely from CKD Monitor hemoglobin ---Chronic kidney disease Current Visit: Yes Status: Acute Plan to address problem: Baseline creatinine from 09/2019 shows creatinine 4.5 Creatinine 4.8 in the ER this admission. Patient was seen by flame degreaser a couple of months ago and there was no indication for renal replacement therapy at that time Nephrology on board ---HTN (hypertension) Current Visit: Yes Status: Chronic Qualifiers: Hypertension type: essential hypertension Qualified Code(s): I10 - Essential (primary) hypertension Plan to address problem: Continue antihypertensive medications ---DVT prophylaxis Current Visit: No Status: Acute Plan to address problem: On heparin and GI prophylaxis History Interval history: Patient seen and examined at bedside this morning. He denies any symptoms this AM. Labs reviewed - Cr bump noted. K 5.5 Hospitalist Physical - Constitutional Vitals: Temp Pulse Resp BP Pulse Ox 99.1 F 54 L 16 149/50 98 01/04/20 07:18 01/04/20 08:55 01/04/20 08:10 01/04/20 07:18 01/04/20 08:10 General appearance: Present: no acute distress HEART Score - HEART Score Troponin: Troponin T 0.024 ng/mL (0.00-0.029) 01/02/20 12:30 Results - Labs CBC & Chem 7: 01/02/20 12:30 01/04/20 05:53 Labs: Laboratory Last Values WBC 3.9 K/mm3 (4.5-11.0) L 01/02/20 12:30 RBC 2.53 M/mm3 (3.65-5.03) L 01/02/20 12:30 Hgb 7.5 gm/dl (11.8-15.2) L 01/02/20 12:30 Hct 21.8 % (35.5-45.6) L 01/02/20 12:30 MCV 86 fl (84-94) 01/02/20 12:30 MCH 30 pg (28-32) 01/02/20 12:30 MCHC 35 % (32-34) H 01/02/20 12:30 RDW 15.0 % (13.2-15.2) 01/02/20 12:30 Plt Count 267 K/mm3 (140-440) 01/02/20 12:30 Lymph % (Auto) 30.9 % (13.4-35.0) 01/02/20 12:30 [place] % (Auto) 6.8 % (0.0-7.3) 01/02/20 12:30 Eos % (Auto) 5.4 % (0.0-4.3) H 01/02/20 12:30 Baso % (Auto) 1.8 % (0.0-1.8) 01/02/20 12:30 Lymph # (Auto) 1.2 K/mm3 (1.2-5.4) 01/02/20 12:30 [place] # (Auto) 0.3 K/mm3 (0.0-0.8) 01/02/20 12:30 Eos # (Auto) 0.2 K/mm3 (0.0-0.4) 01/02/20 12:30 Baso # (Auto) 0.1 K/mm3 (0.0-0.1) 01/02/20 12:30 Seg Neutrophils % 55.1 % (40.0-70.0) 01/02/20 12:30 Seg Neutrophils # 2.1 K/mm3 (1.8-7.7) 01/02/20 12:30 PT 14.3 Sec. (12.2-14.9) 01/02/20 12:30 INR 1.10 (0.87-1.13) 01/02/20 12:30 APTT 26.8 Sec. (24.2-36.6) 01/02/20 12:30 Thrombin Time 17.8 Sec. (15.1-19.6) 01/02/20 12:30 Sodium 143 mmol/L (137-145) 01/04/20 05:53 Potassium 5.5 mmol/L (3.6-5.0) H 01/04/20 05:53 Chloride 110.3 mmol/L (98-107) H 01/04/20 05:53 Carbon Dioxide 16 mmol/L (22-30) L 01/04/20 05:53 Anion Gap 22 mmol/L 01/04/20 05:53 BUN 54 mg/dL (9-20) H 01/04/20 05:53 Creatinine 4.8 mg/dL (0.8-1.3) H 01/04/20 05:53 Estimated GFR 15 ml/min 01/04/20 05:53 BUN/Creatinine Ratio 11 % 01/04/20 05:53 Glucose 99 mg/dL (75-100) 01/04/20 05:53 POC Glucose 104 mg/dL (70-105) 01/03/20 15:55 Hemoglobin A1c < 4.0 % (4-6) L 01/03/20 06:45 Calcium 7.8 mg/dL (8.4-10.2) L 01/04/20 05:53 Total Bilirubin 0.20 mg/dL (0.1-1.2) 01/03/20 06:45 AST 10 units/L (5-40) 01/03/20 06:45 ALT 8 units/L (7-56) 01/03/20 06:45 Alkaline Phosphatase 67 units/L (35-129) 01/03/20 06:45 Total Creatine Kinase 274 units/L (55-170) H 01/02/20 12:30 CK-MB (CK-2) 4.8 ng/mL (0.0-4.0) H 01/02/20 12:30 CK-MB (CK-2) Rel Index 1.7 (0-4) 01/02/20 12:30 Troponin T 0.024 ng/mL (0.00-0.029) 01/02/20 12:30 Total Protein 6.8 g/dL (6.3-8.2) 01/03/20 06:45 Albumin 3.7 g/dL (3.9-5) L 01/03/20 06:45 Albumin/Globulin Ratio 1.2 % 01/03/20 06:45 TSH 1.620 mlU/mL (0.270-4.200) 01/02/20 12:30 Urine Color Straw (Yellow) 01/02/20 15:05 Urine Turbidity Clear (Clear) 01/02/20 15:05 Urine pH 6.0 (5.0-7.0) 01/02/20 15:05 Ur Specific [place] 1.010 (1.003-1.030) 01/02/20 15:05 Urine Protein 100 mg/dl mg/dL (Negative) 01/02/20 15:05 Urine Glucose (UA) Neg mg/dL (Negative) 01/02/20 15:05 Urine Ketones Neg mg/dL (Negative) 01/02/20 15:05 Urine Blood Sm (Negative) 01/02/20 15:05 Urine Nitrite Neg (Negative) 01/02/20 15:05 Urine Bilirubin Neg (Negative) 01/02/20 15:05 Urine Urobilinogen < 2.0 mg/dL (<2.0) 01/02/20 15:05 Ur Leukocyte Esterase Neg (Negative) 01/02/20 15:05 Urine WBC (Auto) 1.0 /HPF (0.0-6.0) 01/02/20 15:05 Urine RBC (Auto) 2.0 /HPF (0.0-6.0) 01/02/20 15:05 U Epithel Cells (Auto) 3.0 /HPF (0-13.0) 01/02/20 15:05 Urine Eosinophils None seen (None Seen) 01/03/20 15:43 Urine Creatinine 63.8 mg/dL (0.1-20.0) H 01/03/20 15:43 Protein/Creatinin Ratio 3.07 01/03/20 15:43 Urine Sodium 76 mmol/L 01/03/20 15:43 Urine Total Protein 196 mg/dL (5-11.8) H 01/03/20 15:43 Nasal Screen MRSA (PCR) Negative (Negative) 01/03/20 09:27 Urine Opiates Screen Presumptive negative 01/02/20 15:05 Urine Methadone Screen Presumptive negative 01/02/20 15:05 Ur Barbiturates Screen Presumptive negative 01/02/20 15:05 Ur Phencyclidine Scrn Presumptive negative 01/02/20 15:05 Ur Amphetamines Screen Presumptive negative 01/02/20 15:05 U Benzodiazepines Scrn Presumptive negative 01/02/20 15:05 Urine Cocaine Screen Presumptive negative 01/02/20 15:05 U Marijuana (THC) Screen Presumptive negative 01/02/20 15:05 Drugs of Abuse Note Disclamer 01/02/20 15:05 Marrufo/IV: Voiding Method Condom Catheter IV Catheter Type [Left Hand] INT / Saline Lock Active Medications - Current Medications Current Medications: Generic Name Dose Route Start Last Admin Trade Name Freq PRN Reason Stop Dose Admin Acetaminophen 650 mg 01/02/20 23:19 Tylenol PO Q4H PRN Pain MILD(1-3)/Fever >100.5/LIRA Aspirin 81 mg 01/03/20 10:00 01/04/20 09:43 Baby Aspirin PO 81 mg QDAY MICHA Administration Atorvastatin Calcium 40 mg 01/03/20 22:00 01/03/20 21:15 Lipitor PO 40 mg QHS MICHA Administration Famotidine 20 mg 01/03/20 10:00 01/04/20 09:43 Pepcid PO 20 mg DAILY MICHA Administration Folic Acid 1 mg 01/03/20 10:00 01/04/20 09:43 Folvite PO 1 mg QDAY MICHA Administration Heparin Sodium (Porcine) 5,000 unit 01/03/20 10:00 01/04/20 09:43 Heparin SUB-Q 5,000 unit Q12HR MICHA Administration Hydralazine HCl 50 mg 01/03/20 08:00 01/04/20 08:02 Apresoline PO 50 mg TID MICHA Administration Hydromorphone HCl 0.5 mg 01/02/20 23:19 Dilaudid IV Q3H PRN Pain , Severe (7-10) Sodium Chloride 1,000 mls @ 75 mls/hr 01/02/20 23:30 01/04/20 04:20 Nacl 0.9% 1000 Ml IV 75 mls/hr DIRECT MICHA Administration Multivitamins 1 each 01/03/20 10:00 01/04/20 09:43 Theragran Tab PO 1 each QDAY MICHA Administration Nifedipine 90 mg 01/03/20 10:00 01/04/20 09:42 Procardia Xl PO 90 mg QDAY MICHA Administration Ondansetron HCl 4 mg 01/02/20 23:19 01/04/20 02:41 Zofran IV 4 mg Q8H PRN Administration Nausea And Vomiting Oxycodone/Acetaminophen 1 tab 01/02/20 23:19 Percocet 5/325 PO Q6H PRN Pain, Moderate (4-6) Polyethylene Glycol 17 gm 01/02/20 23:18 01/03/20 15:44 Miralax 3350 PO 17 gm QDAY PRN Administration Constipation Sodium Chloride 10 ml 01/03/20 10:00 01/04/20 09:43 Sodium Chloride Flush Syringe 10 Ml IV 10 ml BID MICHA Administration Sodium Chloride 10 ml 01/02/20 23:19 Sodium Chloride Flush Syringe 10 Ml IV PRN PRN LINE FLUSH Thiamine HCl 100 mg 01/03/20 10:00 01/04/20 09:43 Vitamin B-1 PO 100 mg QDAY MICHA Administration Nutrition/Malnutrition Assess - Dietary Evaluation Nutrition/Malnutrition Findings: Nutrition Notes Start: 01/03/20 11:40 Freq: Status: Active Protocol: Document 01/03/20 11:40 JENNIFER (Rec: 01/03/20 11:42 [id number]) Nutrition Notes Need for Assessment generated from: ocean export coordinator Initial or Follow up Brief Note Current Diagnosis CKD(stage I-IV),Diabetes, Hypertension,Heart Failure, Stroke Current Diet Cardiac Labs/Tests K 5.2 Subjective/Other Information RN screen for difficulty chewing. Pt reports having no teeth but eating 100% of meals and no wt loss. Pt aware of follow up options if he would like a pureed or mech soft diet. Nutrition Intervention Revisit per MD consult or patient Sign Off request:
--- NOTE | 2020-01-04 13:57 | Ultrasound Report ---
US renal BILAT INDICATION / CLINICAL INFORMATION: renal failure. COMPARISON: None available. FINDINGS: RIGHT KIDNEY: Size = 10.3 cm. - Echogenicity: Increased echogenicity and decreased visualization of the renal pyramids. - Cortical thickness: Normal. - Hydronephrosis: None. - Cyst or mass: Simple appearing cysts measuring up to 1 cm - Stones: None seen.. LEFT KIDNEY: Size = 9.3 cm. - Echogenicity: Increased echogenicity and decreased visualization of the renal pyramids. - Cortical thickness: Normal. - Hydronephrosis: None. - Cyst or mass: Simple appearing cysts measuring up to 2.5 cm - Stones: None seen.. URINARY BLADDER: No significant abnormality. Marrufo catheter is present. FREE FLUID: None. ADDITIONAL FINDINGS: None. IMPRESSION 1. Findings of medical renal disease without other significant sonographic abnormality. Signer Name: Hari Darling MD Signed: 01/04/2020 1:52 PM Workstation Name: [id number]
[2020-01-04 14:09] LABS: Calcium 7.6 mg/dL (8.4-10.2)
[2020-01-04] MEDS: SODIUM BICARBONATE 650 MG TAB PO SCH ×2 (14:15→21:12)
--- NOTE | 2020-01-04 15:11 | Progress Note ---
Assessment and Plan - Patient Problems (1) Bradycardia Current Visit: Yes Status: Acute Plan to address problem: Patient presents with constitutional symptoms of generalized numbness and weakness, severe anemia and worsening renal failure. He was found with asymp tomatic sinus bradycardia with a heart rate in the mid to high 40s. TSH level was normal. Sinus rate has improved to normal levels with conservative monitoring. Avoid AV jacqui blocking agents or sinus node depressants. Otherwise, no further cardiac work-up is indicated. Subjective Date of service: 01/04/20 Interval history: Patient is comfortable, no cardiac complaints, his sinus rate has improved, ranges between 59 and 61. Objective Vital Signs Temp Pulse Pulse Pulse Resp BP BP 01/04/20 12:29 98.0 F 59 L 20 137/51 01/04/20 08:55 54 L 01/04/20 08:10 50 L 50 L 16 01/04/20 07:18 99.1 F 61 20 149/50 01/04/20 06:48 99.8 F H 62 20 149/42 01/04/20 00:30 97.7 F 65 20 158/42 01/03/20 21:16 53 L 132/43 01/03/20 20:45 50 L 50 L 16 01/03/20 20:05 52 L 01/03/20 19:22 97.8 F 50 L 20 131/33 01/03/20 18:42 53 L 01/03/20 15:38 98.3 F 55 L 20 140/45 Pulse Ox 01/04/20 12:29 96 01/04/20 08:55 01/04/20 08:10 98 01/04/20 07:18 98 01/04/20 06:48 98 01/04/20 00:30 100 01/03/20 21:16 01/03/20 20:45 98 01/03/20 20:05 01/03/20 19:22 98 01/03/20 18:42 01/03/20 15:38 99 - Physical Examination General: No Apparent Distress HEENT: Positive: PERRL Neck: Positive: neck supple, trachea midline Cardiac: Positive: Reg Rate and Rhythm Lungs: Positive: Decreased Breath Sounds Neuro: Positive: Grossly Intact Abdomen: Positive: Soft Skin: Positive: Clear Extremities: Absent: edema - Labs and Meds Comprehensive Metabolic Panel 01/04/20 01/04/20 Range/Units 05:53 12:54 Sodium 143 143 (137-145) mmol/L Potassium 5.5 H 5.0 (3.6-5.0) mmol/L Chloride 110.3 H 111.8 H (98-107) mmol/L Carbon Dioxide 16 L 19 L (22-30) mmol/L BUN 54 H 53 H (9-20) mg/dL Creatinine 4.8 H 5.0 H (0.8-1.3) mg/dL Glucose 99 146 H (75-100) mg/dL Calcium 7.8 L 7.6 L (8.4-10.2) mg/dL - Imaging and Cardiology EKG: report reviewed
--- NOTE | 2020-01-04 15:48 | Progress Note ---
Assessment and Plan Assessment: Acute Renal failure on possible CKD progression due to Hypertensive Nephrosclerosis and Diabetic nephropathy TIA Hyperkalemia Anemia Hypertension Acidosis Plan: Renal labs reviewed. Serum creatinine 4.8 today, prior was 4.6. Baseline serum creatinine~3, likely worsening creatinine due to progression of CKD Urine lytes reciewed, has proteinuria, no urine eosinophils seen Continue NS@ 75 ml/hr, monitor volume status Renal US negative for obstruction, shows medical renal disease Hyperkalemia- received Kayexalate Renally dose medications Strict I&O monitoring Obtain daily weights Avoid nephrotoxic agents Monitor renal function closely If no improvement in renal function on hydration, may need HD Plan of care reviewed with Dr. Dorantes Subjective Date of service: 01/04/20 Principal diagnosis: Severe Renal Failure, TIA Interval history: Patient seen lying in bed. states he just got back to room from undergoing a test Objective - Vital Signs Vital signs: Vital Signs - 12hr 01/04/20 01/04/20 01/04/20 06:48 07:18 08:10 Temperature 99.8 F H 99.1 F Pulse Rate 62 61 Pulse Rate [ 50 L Apical] Pulse Rate [ 50 L Right Radial] Respiratory 20 20 16 Rate Blood Pressure 149/50 Blood Pressure 149/42 [Left] O2 Sat by Pulse 98 98 98 Oximetry 01/04/20 01/04/20 08:55 12:29 Temperature 98.0 F Pulse Rate 54 L 59 L Pulse Rate [ Apical] Pulse Rate [ Right Radial] Respiratory 20 Rate Blood Pressure 137/51 Blood Pressure [Left] O2 Sat by Pulse 96 Oximetry - General Appearance General appearance: well-developed, appears stated age EENT: ATNC, PERRL, hearing intact, vision intact Neck: no JVD, supple Respiratory: Present: Decreased Breath Sounds Cardiology: S1S2 Gastrointestinal: normoactive bowel sounds Integumentary: warm and dry Neurologic: alert and oriented x3 Musculoskeletal: decreased ROM, other (trace edema) - Lab 01/02/20 12:30 01/04/20 12:54 Most recent lab results Calcium 7.6 mg/dL (8.4-10.2) L 01/04/20 12:54 Urine Creatinine 63.8 mg/dL (0.1-20.0) H 01/03/20 15:43 Urine Sodium 76 mmol/L 10/24/20 15:43 Urine Total Protein 196 mg/dL (5-11.8) H 01/03/20 15:43 Medications & Allergies - Medications Allergies/Adverse Reactions: Allergies No Known Allergies Allergy (Verified 10/31/18 14:50) Home Medications: Home Medications Medication Instructions Recorded Confirmed Last Taken Type Famotidine [Pepcid] 20 mg PO DAILY #30 tablet 08/19/18 09/10/19 Unknown Rx Hydralazine HCl 50 mg PO TID #90 tablet 08/19/18 09/10/19 Unknown Rx NIFEdipine XL [Procardia Xl] 90 mg PO QDAY #30 tablet 08/19/18 09/10/19 Unknown Rx Folic Acid [Folvite] 1 mg PO QDAY #30 tablet 11/01/18 09/10/19 Unknown Rx Multivitamin Tab [Multiple Vitamin 1 each PO QDAY #30 tablet 11/01/18 09/10/19 Unknown Rx TAB (Theragran)] Thiamine [Vitamin B-1] 100 mg PO QDAY #30 tablet 11/01/18 09/10/19 Unknown Rx Aspirin [Aspirin BABY CHEW TAB] 81 mg PO QDAY #30 tab.chew 04/07/19 09/10/19 Unknown Rx AtorvaSTATin [Lipitor] 40 mg PO QHS #30 tablet 04/07/19 09/10/19 Unknown Rx polyethylene glycoL 3350 [Miralax 17 gm PO QDAY PRN #30 powd.pack 04/07/19 09/10/19 Unknown Rx 3350] Active Medications: Generic Name Dose Route Start Last Admin Trade Name Freq PRN Reason Stop Dose Admin Acetaminophen 650 mg 01/02/20 23:19 Tylenol PO Q4H PRN Pain MILD(1-3)/Fever >100.5/LIRA Aspirin 81 mg 01/03/20 10:00 01/04/20 09:43 Baby Aspirin PO 81 mg QDAY MICHA Administration Atorvastatin Calcium 40 mg 01/03/20 22:00 01/03/20 21:15 Lipitor PO 40 mg QHS MICHA Administration Famotidine 20 mg 01/03/20 10:00 01/04/20 09:43 Pepcid PO 20 mg DAILY MICHA Administration Folic Acid 1 mg 01/03/20 10:00 01/04/20 09:43 Folvite PO 1 mg QDAY MICHA Administration Heparin Sodium (Porcine) 5,000 unit 01/03/20 10:00 01/04/20 09:43 Heparin SUB-Q 5,000 unit Q12HR MICHA Administration Hydralazine HCl 50 mg 01/03/20 08:00 01/04/20 14:15 Apresoline PO 50 mg TID MICHA Administration Hydromorphone HCl 0.5 mg 01/02/20 23:19 Dilaudid IV Q3H PRN Pain , Severe (7-10) Sodium Chloride 1,000 mls @ 75 mls/hr 01/02/20 23:30 01/04/20 04:20 Nacl 0.9% 1000 Ml IV 75 mls/hr DIRECT MICHA Administration Multivitamins 1 each 01/03/20 10:00 01/04/20 09:43 Theragran Tab PO 1 each QDAY MICHA Administration Nifedipine 90 mg 01/03/20 10:00 01/04/20 09:42 Procardia Xl PO 90 mg QDAY MICHA Administration Ondansetron HCl 4 mg 01/02/20 23:19 01/04/20 02:41 Zofran IV 4 mg Q8H PRN Administration Nausea And Vomiting Oxycodone/Acetaminophen 1 tab 01/02/20 23:19 Percocet 5/325 PO Q6H PRN Pain, Moderate (4-6) Polyethylene Glycol 17 gm 01/02/20 23:18 01/03/20 15:44 Miralax 3350 PO 17 gm QDAY PRN Administration Constipation Sodium Bicarbonate 650 mg 01/04/20 14:00 01/04/20 14:15 Sodium Bicarbonate PO 650 mg TID MICHA Administration Sodium Chloride 10 ml 01/03/20 10:00 01/04/20 09:43 Sodium Chloride Flush Syringe 10 Ml IV 10 ml BID MICHA Administration Sodium Chloride 10 ml 01/02/20 23:19 Sodium Chloride Flush Syringe 10 Ml IV PRN PRN LINE FLUSH Thiamine HCl 100 mg 01/03/20 10:00 01/04/20 09:43 Vitamin B-1 PO 100 mg QDAY MICHA Administration
--- NOTE | 2020-01-04 17:29 | Magnetic Resonance Report ---
NONENHANCED MR SCAN OF THE BRAIN: INDICATION / CLINICAL INFORMATION: cva/tia. TECHNIQUE: Multiplanar, multisequence MR images of the brain obtained. COMPARISON: CT scan of the head from 01/02/2020 FINDINGS: BRAIN / INTRACRANIAL CONTENTS: Diffusion-weighted images, gradient echo images and T1-weighted images are available. FLAIR and T2-weighted images are not available in the PACS. No focal area of restrictive diffusion; cerebellar hemispheres normal in the diffusion-weighted image s centering: This would exclude acute/subacute infarction In the gradient echo images, bilaterally focal areas of susceptibility changes seen in right occipita l lobe; if there is history of hypertension, these could be chronic microbleed; questionable suscepti bility changes in the left occipital lobe appear to be artifactual; In the T1 weighted images, no space taking lesion in the brain ORBITS: No significant abnormality of visualized orbits. SINUSES / MASTOIDS: No significant abnormality of visualized sinuses and mastoid air cells. ADDITIONAL FINDINGS: None. IMPRESSION: No acute/subacute infarction; no large hemorrhagic changes FLAIR and T2-weighted images not available in the PACS Signer Name: Aida Collins MD Signed: 01/04/2020 5:25 PM Workstation Name: [id number]
[2020-01-05 09:09] LABS: Basophils % (Auto) 0.3 % (0.0-1.8); Eosinophils # (Auto) 0.1 K/mm3 (0.0-0.4); Hematocrit 22.8 % (35.5-45.6); Hemoglobin 7.4 gm/dl (11.8-15.2); Lymphocytes # (Auto) 1.3 K/mm3 (1.2-5.4); Lymphocytes % (Auto) 27.4 % (13.4-35.0); Mean Corpuscular HGB Conc 33 % (32-34); Mean Corpuscular Volume 88 fl (84-94); Monocytes # (Auto) 0.3 K/mm3 (0.0-0.8); Monocytes % (Auto) 6.7 % (0.0-7.3); Platelet Count 240 K/mm3 (140-440); Red Blood Count 2.59 M/mm3 (3.65-5.03); Red Cell Distribution Width 14.9 % (13.2-15.2)
[2020-01-05] MEDS: FAMOTIDINE 20 MG TAB PO SCH (09:33)
[2020-01-05] MEDS: SODIUM BICARBONATE 650 MG TAB PO SCH ×3 (09:33→22:13)
[2020-01-05] MEDS: FOLIC ACID 1 MG TAB PO SCH (09:34)
[2020-01-05] MEDS: HEPARIN 5,000 UNIT/1 ML VIAL SUB-Q SCH ×2 (09:34→22:13)
[2020-01-05] MEDS: ASPIRIN 81 MG TAB CHEW PO SCH (09:34)
[2020-01-05] MEDS: THIAMINE 100 MG TAB PO SCH (09:34)
[2020-01-05] MEDS: hydrALAZINE 25 MG TAB PO SCH ×3 (09:36→22:13)
[2020-01-05] MEDS: MULTIVITAMINS ,THERAPEUTIC TAB PO SCH (09:36)
[2020-01-05] MEDS: NIFEdipine XL 90 MG TAB PO SCH (09:37)
[2020-01-05] MEDS: SODIUM CHLORIDE 0.9% 1000 ML 1,000 ML IV SCH (09:38)
[2020-01-05 09:46] LABS: Albumin 3.5 g/dL (3.9-5); Calcium 7.3 mg/dL (8.4-10.2)
--- NOTE | 2020-01-05 10:15 | Progress Note ---
Assessment and Plan Bradycardia, asymptomatic sinus rate has improved to normal levels TSH level was normal Hypertension Chronic kidney disease Cardiac tests: No ischemia by MPI 03/2019. Normal LVEF, 65% by echo 10/2018. Normal coronaries by [facility] in 2013. Avoid AV jacqui blocking agents or sinus node depressants. Otherwise, conservative cardiac management. Subjective Date of service: 01/05/20 Principal diagnosis: Severe Renal Failure, TIA Interval history: Patient is resting in bed comfortably. Denies dizziness, unusual shortness of breath, palpitations and chest pain. Stable sinus rhythm on telemetry, rate 60 Objective Vital Signs Temp Pulse Resp BP Pulse Ox 01/05/20 09:36 58 L 150/82 01/05/20 05:21 98.0 F 60 20 150/54 97 01/05/20 00:48 18 01/04/20 22:00 67 01/04/20 21:39 97.7 F 71 20 151/58 97 01/04/20 21:22 67 153/58 01/04/20 15:38 97.1 F L 61 20 157/57 98 01/04/20 12:29 98.0 F 59 L 20 137/51 96 - Physical Examination General: No Apparent Distress HEENT: Positive: PERRL Neck: Positive: neck supple, trachea midline Cardiac: Positive: Reg Rate and Rhythm Lungs: Positive: Decreased Breath Sounds - Labs and Meds Cardiac Enzymes 01/05/20 Range/Units 06:35 AST 10 (5-40) units/L CBC 01/05/20 Range/Units 06:35 WBC 4.6 (4.5-11.0) K/mm3 RBC 2.59 L (3.65-5.03) M/mm3 Hgb 7.4 L (11.8-15.2) gm/dl Hct 22.8 L (35.5-45.6) % Plt Count 240 (140-440) K/mm3 Lymph # (Auto) 1.3 (1.2-5.4) K/mm3 [place] # (Auto) 0.3 (0.0-0.8) K/mm3 Eos # (Auto) 0.1 (0.0-0.4) K/mm3 Baso # (Auto) 0.0 (0.0-0.1) K/mm3 Comprehensive Metabolic Panel 10/25/20 10/26/20 Range/Units 12:54 06:35 Sodium 143 146 H (137-145) mmol/L Potassium 5.0 5.2 H (3.6-5.0) mmol/L Chloride 111.8 H 115.0 H (98-107) mmol/L Carbon Dioxide 19 L 20 L (22-30) mmol/L BUN 53 H 54 H (9-20) mg/dL Creatinine 5.0 H 5.1 H (0.8-1.3) mg/dL Glucose 146 H 72 L (75-100) mg/dL Calcium 7.6 L 7.3 L (8.4-10.2) mg/dL AST 10 (5-40) units/L ALT 6 L (7-56) units/L Alkaline Phosphatase 64 (35-129) units/L Total Protein 6.3 (6.3-8.2) g/dL Albumin 3.5 L (3.9-5) g/dL
--- NOTE | 2020-01-05 13:43 | Progress Note ---
Assessment and Plan Assessment: Acute Renal failure on possible CKD progression due to Hypertensive Nephrosclerosis and Diabetic nephropathy TIA Hyperkalemia Anemia Hypertension Acidosis Plan: Renal labs reviewed. Serum creatinine 5.1 today, prior was 4.8-5.0 yesterday. Likely has progression of CKD Urine lytes reviewed, has nephrotic range proteinuria, no urine eosinophils seen Will GN work-up- SAHIL, ANCA, SPEP, UPEP, serum free light chains, HIV, Hep panel, Anti-GBM, C3, C4 Decrease NS to 50 ml/hr, monitor volume status Hyperkalemia- Lokelma 10 gram po x 1 Renal US negative for obstruction, shows medical renal disease Renally dose medications Strict I&O monitoring Obtain daily weights Avoid nephrotoxic agents Monitor renal function closely If no improvement in renal function in next 24-48 hours then will consider hemodialysis, ordered GN work-up Plan of care reviewed with Dr. Dorantes Subjective Date of service: 01/05/20 Principal diagnosis: Severe Renal Failure, TIA Interval history: Patient seen lying in bed. Patient states he has new onset of numbness to left hand and lips that just started. RN aware and is notifying Attending. Discussed with patient that his renal function has not recovered so far despite IV hydration and discussed that dialysis maybe needed if no improvement in the next 24-48 hours. He states he had a niece that was on dialysis. We will revisit this conversation tomorrow. Objective - Vital Signs Vital signs: Vital Signs - 12hr 01/05/20 01/05/20 05:21 09:36 Temperature 98.0 F Pulse Rate 60 58 L Respiratory 20 Rate Blood Pressure 150/54 150/82 O2 Sat by Pulse 97 Oximetry - General Appearance General appearance: well-developed, chronically ill, fatigue EENT: ATNC, PERRL, hearing intact, vision intact Neck: no JVD, supple Respiratory: Present: Decreased Breath Sounds Cardiology: S1S2 Gastrointestinal: normoactive bowel sounds Integumentary: warm and dry Neurologic: alert and oriented x3, other Musculoskeletal: other (trace edema) - Lab 01/05/20 06:35 01/05/20 06:35 Most recent lab results Calcium 7.3 mg/dL (8.4-10.2) L 01/05/20 06:35 Magnesium 1.70 mg/dL (1.7-2.3) 01/05/20 06:35 Urine Creatinine 63.8 mg/dL (0.1-20.0) H 01/03/20 15:43 Urine Sodium 76 mmol/L 01/03/20 15:43 Urine Total Protein 196 mg/dL (5-11.8) H 01/03/20 15:43 Medications & Allergies - Medications Allergies/Adverse Reactions: Allergies No Known Allergies Allergy (Verified 10/31/18 14:50) Home Medications: Home Medications Medication Instructions Recorded Confirmed Last Taken Type Famotidine [Pepcid] 20 mg PO DAILY #30 tablet 08/19/18 09/10/19 Unknown Rx Hydralazine HCl 50 mg PO TID #90 tablet 08/19/18 09/10/19 Unknown Rx NIFEdipine XL [Procardia Xl] 90 mg PO QDAY #30 tablet 08/19/18 09/10/19 Unknown Rx Folic Acid [Folvite] 1 mg PO QDAY #30 tablet 11/01/18 09/10/19 Unknown Rx Multivitamin Tab [Multiple Vitamin 1 each PO QDAY #30 tablet 11/01/18 09/10/19 Unknown Rx TAB (Theragran)] Thiamine [Vitamin B-1] 100 mg PO QDAY #30 tablet 11/01/18 09/10/19 Unknown Rx Aspirin [Aspirin BABY CHEW TAB] 81 mg PO QDAY #30 tab.chew 04/07/19 09/10/19 Unknown Rx AtorvaSTATin [Lipitor] 40 mg PO QHS #30 tablet 04/07/19 09/10/19 Unknown Rx polyethylene glycoL 3350 [Miralax 17 gm PO QDAY PRN #30 powd.pack 04/07/19 09/10/19 Unknown Rx 3350] Active Medications: Generic Name Dose Route Start Last Admin Trade Name Freq PRN Reason Stop Dose Admin Acetaminophen 650 mg 01/02/20 23:19 Tylenol PO Q4H PRN Pain MILD(1-3)/Fever >100.5/LIRA Aspirin 81 mg 01/03/20 10:00 01/05/20 09:34 Baby Aspirin PO 81 mg QDAY MICHA Administration Atorvastatin Calcium 40 mg 01/03/20 22:00 01/04/20 21:11 Lipitor PO 40 mg QHS MICHA Administration Famotidine 20 mg 01/03/20 10:00 01/05/20 09:33 Pepcid PO 20 mg DAILY MICHA Administration Folic Acid 1 mg 01/03/20 10:00 01/05/20 09:34 Folvite PO 1 mg QDAY MICHA Administration Heparin Sodium (Porcine) 5,000 unit 01/03/20 10:00 01/05/20 09:34 Heparin SUB-Q 5,000 unit Q12HR MICHA Administration Hydralazine HCl 50 mg 01/03/20 08:00 01/05/20 09:36 Apresoline PO 50 mg TID MICHA Administration Hydromorphone HCl 0.5 mg 01/02/20 23:19 Dilaudid IV Q3H PRN Pain , Severe (7-10) Sodium Chloride 1,000 mls @ 75 mls/hr 01/02/20 23:30 01/05/20 09:38 Nacl 0.9% 1000 Ml IV 75 mls/hr DIRECT MICHA Administration Multivitamins 1 each 01/03/20 10:00 01/05/20 09:36 Theragran Tab PO 1 each QDAY MICHA Administration Nifedipine 90 mg 01/03/20 10:00 01/05/20 09:37 Procardia Xl PO 90 mg QDAY MICHA Administration Ondansetron HCl 4 mg 01/02/20 23:19 01/04/20 22:29 Zofran IV 4 mg Q8H PRN Administration Nausea And Vomiting Oxycodone/Acetaminophen 1 tab 01/02/20 23:19 01/04/20 17:57 Percocet 5/325 PO 1 tab Q6H PRN Administration Pain, Moderate (4-6) Polyethylene Glycol 17 gm 01/02/20 23:18 01/03/20 15:44 Miralax 3350 PO 17 gm QDAY PRN Administration Constipation Sodium Bicarbonate 650 mg 01/04/20 14:00 01/05/20 09:33 Sodium Bicarbonate PO 650 mg TID MICHA Administration Sodium Chloride 10 ml 01/03/20 10:00 01/05/20 09:37 Sodium Chloride Flush Syringe 10 Ml IV 10 ml BID MICHA Administration Sodium Chloride 10 ml 01/02/20 23:19 Sodium Chloride Flush Syringe 10 Ml IV PRN PRN LINE FLUSH Thiamine HCl 100 mg 01/03/20 10:00 01/05/20 09:34 Vitamin B-1 PO 100 mg QDAY MICHA Administration
--- NOTE | 2020-01-05 13:46 | Vascular Lab Report ---
BILATERAL CAROTID DOPPLER ULTRASOUND INDICATION : Transient ischemic attack TECHNIQUE: Grayscale and color Doppler imaging performed through the neck. COMPARISON: None FINDINGS: Right: There is moderate irregular calcific plaques in the carotid bulb extending to the proximal I CA. Peak systolic velocity in the CCA is 95 cm/s with end-diastolic velocity of 15 cm/s. Peak systoli c velocity in the proximal ICA is 141 cm/s with end-diastolic velocity of 35 cm/s. ICA to CCA ratio i s less than 2. There is antegrade flow in the ECA and the vertebral artery. Doppler velocities are e levated in the proximal ECA measuring 210 cm/s. Left: There is mild partially calcified plaques are identified in the carotid bulb. Peak systolic joe ocity in the CCA is 99 cm/s with end-diastolic velocity of 22 cm/s. Peak systolic velocity in the pro ximal ICA is 116 cm/s with end-diastolic velocity of 33 cm/s. ICA to CCA ratio is less than 2. There is antegrade flow in the ECA and the vertebral artery. IMPRESSION: Using NASCET criteria, 50-69 % stenosis is demonstrated in the right ICA and ECA. There i s less than 50% luminal narrowing in the left carotid system. Signer Name: Ronaldo High Jr, MD Signed: 01/05/2020 1:41 PM Workstation Name: [id number]
[2020-01-05] MEDS ORDERED: SODIUM POLYSTYRENE 15 GM/60 ML ORAL LIQD PO NR (15:00)
--- NOTE | 2020-01-05 16:39 | Progress Note ---
Assessment and Plan - Patient Problems (1) TIA (transient ischemic attack) Current Visit: Yes Status: Acute Plan to address problem: TIA work-up MRI brain and carotid duplex scan were normal (2) Bradycardia Current Visit: Yes Status: Acute Plan to address problem: Cardiology consult appreciated Patient is stable otherwise (3) Hyperkalemia Current Visit: Yes Status: Acute Plan to address problem: Treated with calcium gluconate Mild (4) Chronic kidney disease Current Visit: Yes Status: Acute Plan to address problem: Nephrology consult appreciated Patient is a candidate for hemodialysis Refuses [facility] (5) HTN (hypertension) Current Visit: Yes Status: Chronic Qualifiers: Hypertension type: essential hypertension Qualified Code(s): I10 - Essential (primary) hypertension Plan to address problem: Continue antihypertensive (6) DVT prophylaxis Current Visit: No Status: Acute Plan to address problem: On heparin and GI prophylaxis Subjective Date of service: 01/05/20 Principal diagnosis: Severe Renal Failure, TIA Interval history: 75-year-old male with history of polio affecting left side with weakness and numbness comes in for slurred speech and generalized weakness. This happened around 7 AM in the morning. Code stroke was called. Patient has a previous history of CVA with left-sided weakness and CHF diabetes and hypertension. Slurred speech has improved while in the emergency room. Patient being admitted as TIA. For observation and MRI. Creatinine deteriorating Objective - Constitutional Vitals: Vital Signs - 12hr 01/05/20 01/05/20 01/05/20 05:21 09:36 13:02 Temperature 98.0 F 98.5 F Pulse Rate 60 58 L 62 Respiratory 20 18 Rate Blood Pressure 150/54 150/82 156/51 O2 Sat by Pulse 97 98 Oximetry 01/05/20 14:29 Temperature Pulse Rate 62 Respiratory Rate Blood Pressure 155/51 O2 Sat by Pulse Oximetry General appearance: Present: no acute distress, well-nourished - EENT Eyes: PERRL, EOM intact ENT: hearing intact, clear oral mucosa Ears: bilateral: normal - Neck Neck: supple, normal ROM - Respiratory Respiratory effort: normal Respiratory: bilateral: CTA - Breasts Breasts: normal - Cardiovascular Rhythm: regular Heart Sounds: Present: S1 & S2. Absent: gallop, rub Extremities: pulses intact, No edema, normal color, Full ROM - Gastrointestinal General gastrointestinal: Present: soft, non-tender, non-distended, normal bowel sounds - Genitourinary Male genitourinary: normal - Integumentary Integumentary: clear, warm, dry - Musculoskeletal Musculoskeletal: 1, strength equal bilaterally - Neurologic Neurologic: moves all extremities - Psychiatric Psychiatric: memory intact, appropriate mood/affect, intact judgment & insight - Labs CBC & Chem 7: 01/05/20 06:35 01/05/20 06:35 Labs: Abnormal lab results 01/05/20 01/05/20 Range/Units 06:35 06:35 RBC 2.59 L (3.65-5.03) M/mm3 Hgb 7.4 L (11.8-15.2) gm/dl Hct 22.8 L (35.5-45.6) % Sodium 146 H (137-145) mmol/L Potassium 5.2 H (3.6-5.0) mmol/L Chloride 115.0 H (98-107) mmol/L Carbon Dioxide 20 L (22-30) mmol/L BUN 54 H (9-20) mg/dL Creatinine 5.1 H (0.8-1.3) mg/dL Glucose 72 L (75-100) mg/dL Calcium 7.3 L (8.4-10.2) mg/dL ALT 6 L (7-56) units/L Albumin 3.5 L (3.9-5) g/dL HEART Score - HEART Score Troponin: Troponin T 0.024 ng/mL (0.00-0.029) 01/02/20 12:30
[2020-01-05 16:55] LABS: Hepatitis B Surface Antigen Non-Reactive (Negative); Hepatitis C Virus Antibody Non-Reactive (NonReactive)
[2020-01-05] MEDS ORDERED: MAGNESIUM HYDROXIDE (MOM) ORAL LIQD UDC PO PRN (18:30)
[2020-01-06] MEDS ORDERED: hydrALAZINE 25 MG TAB ONE ×2 (09:00→09:30)
[2020-01-06] MEDS ORDERED: HEPARIN 5,000 UNIT/1 ML VIAL ONE (09:30)
[2020-01-06] MEDS ORDERED: NIFEdipine XL 90 MG TAB PO ONE (09:30)
[2020-01-06] MEDS ORDERED: SODIUM BICARBONATE 650 MG TAB ONE (09:30)
[2020-01-06] MEDS ORDERED: THIAMINE 100 MG TAB ONE (09:30)
[2020-01-06] MEDS ORDERED: FAMOTIDINE 20 MG TAB ONE (09:30)
[2020-01-06] MEDS ORDERED: MULTIVITAMINS ,THERAPEUTIC TAB PO ONE (09:30)
[2020-01-06] MEDS ORDERED: FOLIC ACID 1 MG TAB ONE (09:30)
[2020-01-06] MEDS ORDERED: ASPIRIN 81 MG TAB CHEW ONE (09:30)
--- NOTE | 2020-01-06 17:52 | Progress Note ---
Assessment and Plan Assessment and plan: TIA (transient ischemic attack) TIA work-up MRI brain and carotid duplex scan Bradycardia Cardiology consult requested Patient is stable otherwise No ischemia by MPI 03/2019. Normal LVEF, 65% by echo 10/2018. Normal coronaries by [facility] in 2013. Avoid AV jacqui blocking agents or sinus node depressants. Otherwise, conservative cardiac management. Hyperkalemia Treated with calcium gluconate. resolved Chronic kidney disease Nephrology following and recommending HD if no improvement next 24-48 hours. Pt refusing HD at present HTN (hypertension) Continue antihypertensive DVT prophylaxis On heparin and GI prophylaxis History Interval history: no new issues Hospitalist Physical - Constitutional Vitals: Temp Pulse Resp BP Pulse Ox 98.1 F 61 20 178/65 96 01/06/20 12:35 01/06/20 12:35 01/06/20 12:35 01/06/20 12:35 01/06/20 12:35 General appearance: Present: no acute distress, well-nourished - EENT Eyes: Present: PERRL, EOM intact ENT: hearing intact, clear oral mucosa, dentition normal - Neck Neck: Present: supple, normal ROM - Respiratory Respiratory effort: normal Respiratory: bilateral: CTA - Cardiovascular Rhythm: regular Heart Sounds: Present: S1 & S2. Absent: gallop, rub - Extremities Extremities: no ischemia, No edema, Full ROM - Abdominal General gastrointestinal: soft, non-tender, non-distended, normal bowel sounds - Integumentary Integumentary: Present: clear, warm, dry - Neurologic Neurologic: CNII-XII intact, moves all extremities HEART Score - HEART Score Troponin: Troponin T 0.024 ng/mL (0.00-0.029) 01/02/20 12:30 Results - Labs CBC & Chem 7: 01/05/20 06:35 01/05/20 06:35 Labs: Laboratory Last Values WBC 4.6 K/mm3 (4.5-11.0) 01/05/20 06:35 RBC 2.59 M/mm3 (3.65-5.03) L 01/05/20 06:35 Hgb 7.4 gm/dl (11.8-15.2) L 01/05/20 06:35 Hct 22.8 % (35.5-45.6) L 01/05/20 06:35 MCV 88 fl (84-94) 01/05/20 06:35 MCH 29 pg (28-32) 01/05/20 06:35 MCHC 33 % (32-34) 01/05/20 06:35 RDW 14.9 % (13.2-15.2) 01/05/20 06:35 Plt Count 240 K/mm3 (140-440) 01/05/20 06:35 Lymph % (Auto) 27.4 % (13.4-35.0) 01/05/20 06:35 [place] % (Auto) 6.7 % (0.0-7.3) 01/05/20 06:35 Eos % (Auto) 2.0 % (0.0-4.3) 01/05/20 06:35 Baso % (Auto) 0.3 % (0.0-1.8) 01/05/20 06:35 Lymph # (Auto) 1.3 K/mm3 (1.2-5.4) 01/05/20 06:35 [place] # (Auto) 0.3 K/mm3 (0.0-0.8) 01/05/20 06:35 Eos # (Auto) 0.1 K/mm3 (0.0-0.4) 01/05/20 06:35 Baso # (Auto) 0.0 K/mm3 (0.0-0.1) 01/05/20 06:35 Seg Neutrophils % 63.6 % (40.0-70.0) 01/05/20 06:35 Seg Neutrophils # 2.9 K/mm3 (1.8-7.7) 01/05/20 06:35 PT 14.3 Sec. (12.2-14.9) 01/02/20 12:30 INR 1.10 (0.87-1.13) 01/02/20 12:30 APTT 26.8 Sec. (24.2-36.6) 01/02/20 12:30 Thrombin Time 17.8 Sec. (15.1-19.6) 01/02/20 12:30 Sodium 146 mmol/L (137-145) H 01/05/20 06:35 Potassium 5.2 mmol/L (3.6-5.0) H 01/05/20 06:35 Chloride 115.0 mmol/L (98-107) H 01/05/20 06:35 Carbon Dioxide 20 mmol/L (22-30) L 01/05/20 06:35 Anion Gap 16 mmol/L 01/05/20 06:35 BUN 54 mg/dL (9-20) H 01/05/20 06:35 Creatinine 5.1 mg/dL (0.8-1.3) H 01/05/20 06:35 Estimated GFR 14 ml/min 01/05/20 06:35 BUN/Creatinine Ratio 11 % 01/05/20 06:35 Glucose 72 mg/dL (75-100) L 01/05/20 06:35 POC Glucose 104 mg/dL (70-105) 01/03/20 15:55 Hemoglobin A1c < 4.0 % (4-6) L 01/03/20 06:45 Calcium 7.3 mg/dL (8.4-10.2) L 01/05/20 06:35 Magnesium 1.70 mg/dL (1.7-2.3) 01/05/20 06:35 Total Bilirubin 0.30 mg/dL (0.1-1.2) 01/05/20 06:35 AST 10 units/L (5-40) 01/05/20 06:35 ALT 6 units/L (7-56) L 01/05/20 06:35 Alkaline Phosphatase 64 units/L (35-129) 01/05/20 06:35 Total Creatine Kinase 274 units/L (55-170) H 01/02/20 12:30 CK-MB (CK-2) 4.8 ng/mL (0.0-4.0) H 01/02/20 12:30 CK-MB (CK-2) Rel Index 1.7 (0-4) 01/02/20 12:30 Troponin T 0.024 ng/mL (0.00-0.029) 01/02/20 12:30 Total Protein 6.3 g/dL (6.3-8.2) 01/05/20 06:35 Albumin 3.5 g/dL (3.9-5) L 01/05/20 06:35 Albumin/Globulin Ratio 1.3 % 01/05/20 06:35 TSH 1.620 mlU/mL (0.270-4.200) 01/02/20 12:30 Urine Color Straw (Yellow) 01/02/20 15:05 Urine Turbidity Clear (Clear) 01/02/20 15:05 Urine pH 6.0 (5.0-7.0) 01/02/20 15:05 Ur Specific [place] 1.010 (1.003-1.030) 01/02/20 15:05 Urine Protein 100 mg/dl mg/dL (Negative) 01/02/20 15:05 Urine Glucose (UA) Neg mg/dL (Negative) 01/02/20 15:05 Urine Ketones Neg mg/dL (Negative) 01/02/20 15:05 Urine Blood Sm (Negative) 01/02/20 15:05 Urine Nitrite Neg (Negative) 01/02/20 15:05 Urine Bilirubin Neg (Negative) 01/02/20 15:05 Urine Urobilinogen < 2.0 mg/dL (<2.0) 01/02/20 15:05 Ur Leukocyte Esterase Neg (Negative) 01/02/20 15:05 Urine WBC (Auto) 1.0 /HPF (0.0-6.0) 01/02/20 15:05 Urine RBC (Auto) 2.0 /HPF (0.0-6.0) 01/02/20 15:05 U Epithel Cells (Auto) 3.0 /HPF (0-13.0) 01/02/20 15:05 Urine Eosinophils None seen (None Seen) 01/03/20 15:43 Urine Creatinine 63.8 mg/dL (0.1-20.0) H 01/03/20 15:43 Protein/Creatinin Ratio 3.07 01/03/20 15:43 Urine Sodium 76 mmol/L 01/03/20 15:43 Urine Total Protein 196 mg/dL (5-11.8) H 01/03/20 15:43 Nasal Screen MRSA (PCR) Negative (Negative) 01/03/20 09:27 Urine Opiates Screen Presumptive negative 01/02/20 15:05 Urine Methadone Screen Presumptive negative 01/02/20 15:05 Ur Barbiturates Screen Presumptive negative 01/02/20 15:05 Ur Phencyclidine Scrn Presumptive negative 01/02/20 15:05 Ur Amphetamines Screen Presumptive negative 01/02/20 15:05 U Benzodiazepines Scrn Presumptive negative 01/02/20 15:05 Urine Cocaine Screen Presumptive negative 01/02/20 15:05 U Marijuana (THC) Screen Presumptive negative 01/02/20 15:05 Drugs of Abuse Note Disclamer 01/02/20 15:05 Hepatitis A IgM Ab Non-reactive (NonReactive) 01/05/20 15:32 Hep Bs Antigen Non-reactive (Negative) 01/05/20 15:32 Hep B Core IgM Ab Non-reactive (NonReactive) 01/05/20 15:32 Hepatitis C Antibody Non-reactive (NonReactive) 01/05/20 15:32 HIV 1&2 Antibody Rapid Non react (Non React) 01/05/20 15:32 HIV P24 Antigen Non react (Non React) 01/05/20 15:32 [place]ru[place]/IV: Voiding Method Condom Catheter IV Catheter Type [Left Hand] INT / Saline Lock Active Medications - Current Medications Current Medications: Generic Name Dose Route Start Last Admin Trade Name Freq PRN Reason Stop Dose Admin Acetaminophen 650 mg 01/02/20 23:19 Tylenol PO Q4H PRN Pain MILD(1-3)/Fever >100.5/ILRA Aspirin 81 mg 01/03/20 10:00 01/05/20 09:34 Baby Aspirin PO 81 mg QDAY MICHA Administration Atorvastatin Calcium 40 mg 01/03/20 22:00 01/05/20 22:13 Lipitor PO 40 mg QHS MICHA Administration Famotidine 20 mg 01/03/20 10:00 01/05/20 09:33 Pepcid PO 20 mg DAILY MICHA Administration Folic Acid 1 mg 01/03/20 10:00 01/05/20 09:34 Folvite PO 1 mg QDAY MICHA Administration Heparin Sodium (Porcine) 5,000 unit 01/03/20 10:00 01/05/20 22:13 Heparin SUB-Q 5,000 unit Q12HR MICHA Administration Hydralazine HCl 50 mg 01/03/20 08:00 01/05/20 22:13 Apresoline PO 50 mg TID MICHA Administration Hydromorphone HCl 0.5 mg 01/02/20 23:19 Dilaudid IV Q3H PRN Pain , Severe (7-10) Sodium Chloride 1,000 mls @ 50 mls/hr 01/02/20 23:30 01/05/20 09:38 Nacl 0.9% 1000 Ml IV 75 mls/hr DIRECT MICHA Administration Magnesium Hydroxide 30 ml 01/05/20 18:30 01/05/20 18:46 Milk Of Magnesia PO 30 ml Q4H PRN Administration Constipation Multivitamins 1 each 01/03/20 10:00 01/05/20 09:36 Theragran Tab PO 1 each QDAY MICHA Administration Nifedipine 90 mg 01/03/20 10:00 01/05/20 09:37 Procardia Xl PO 90 mg QDAY MICHA Administration Ondansetron HCl 4 mg 01/02/20 23:19 01/04/20 22:29 Zofran IV 4 mg Q8H PRN Administration Nausea And Vomiting Oxycodone/Acetaminophen 1 tab 01/02/20 23:19 01/04/20 17:57 Percocet 5/325 PO 1 tab Q6H PRN Administration Pain, Moderate (4-6) Polyethylene Glycol 17 gm 01/02/20 23:18 01/03/20 15:44 Miralax 3350 PO 17 gm QDAY PRN Administration Constipation Sodium Bicarbonate 650 mg 01/04/20 14:00 01/05/20 22:13 Sodium Bicarbonate PO 650 mg TID MICHA Administration Sodium Chloride 10 ml 01/03/20 10:00 01/05/20 22:14 Sodium Chloride Flush Syringe 10 Ml IV 10 ml BID MICHA Administration Sodium Chloride 10 ml 01/02/20 23:19 Sodium Chloride Flush Syringe 10 Ml IV PRN PRN LINE FLUSH Thiamine HCl 100 mg 01/03/20 10:00 01/05/20 09:34 Vitamin B-1 PO 100 mg QDAY MICHA Administration Nutrition/Malnutrition Assess - Dietary Evaluation Nutrition/Malnutrition Findings: Nutrition Notes Start: 01/03/20 11:40 Freq: Status: Active Protocol: Document 01/03/20 11:40 (Rec: 01/03/20 11:42 [id number]) Nutrition Notes Need for Assessment generated from: manager infusion Initial or Follow up Brief Note Current Diagnosis CKD(stage I-IV),Diabetes, Hypertension,Heart Failure, Stroke Current Diet Cardiac Labs/Tests K 5.2 Subjective/Other Information RN screen for difficulty chewing. Pt reports having no teeth but eating 100% of meals and no wt loss. Pt aware of follow up options if he would like a pureed or mech soft diet. Nutrition Intervention Revisit per MD consult or patient Sign Off request:
--- NOTE | 2020-01-06 18:00 | Progress Note ---
Assessment and Plan - Patient Problems (1) Bradycardia Current Visit: Yes Status: Acute Plan to address problem: Patient presents with constitutional symptoms of generalized numbness and weakness, severe anemia and worsening renal failure. He was found with asymp tomatic sinus bradycardia with a heart rate in the mid to high 40s. TSH level was normal. Sinus rate has improved to normal levels with conservative monitoring. Avoid AV jacqui blocking agents or sinus node depressants. Otherwise, no further cardiac work-up is indicated. We will follow intermittently. Subjective Date of service: 01/06/20 Principal diagnosis: Severe Renal Failure, TIA Interval history: Patient is comfortable, no cardiac complaints, sinus bradycardia has resolved. Objective Vital Signs Temp Pulse Resp BP Pulse Ox 01/06/20 12:35 98.1 F 61 20 178/65 96 01/05/20 21:54 99.3 F 74 18 155/64 96 01/05/20 20:07 18 01/05/20 19:51 68 - Physical Examination General: No Apparent Distress HEENT: Positive: PERRL Neck: Positive: neck supple, trachea midline Cardiac: Positive: Reg Rate and Rhythm Lungs: Positive: Decreased Breath Sounds Neuro: Positive: Grossly Intact Abdomen: Positive: Soft Skin: Positive: Clear Extremities: Absent: edema - Imaging and Cardiology EKG: report reviewed
[2020-01-06] MEDS: hydrALAZINE 25 MG TAB PO SCH ×3 (18:11→21:31)
[2020-01-06] MEDS: FOLIC ACID 1 MG TAB PO SCH (18:12)
[2020-01-06] MEDS: NIFEdipine XL 90 MG TAB PO SCH (18:12)
[2020-01-06] MEDS: ASPIRIN 81 MG TAB CHEW PO SCH (18:12)
[2020-01-06] MEDS: FAMOTIDINE 20 MG TAB PO SCH (18:12)
[2020-01-06] MEDS: HEPARIN 5,000 UNIT/1 ML VIAL SUB-Q SCH ×2 (18:12→21:31)
[2020-01-06] MEDS: SODIUM BICARBONATE 650 MG TAB PO SCH ×2 (18:12→21:31)
[2020-01-06] MEDS: THIAMINE 100 MG TAB PO SCH (18:13)
[2020-01-06] MEDS: MULTIVITAMINS ,THERAPEUTIC TAB PO SCH (18:13)
--- NOTE | 2020-01-06 18:33 | Progress Note ---
Assessment and Plan Acute Renal failure on possible CKD progression due to Hypertensive Nephrosclerosis and Diabetic nephropathy TIA Hyperkalemia Anemia Hypertension Acidosis Plan: labs are pending Likely has progression of CKD Urine lytes reviewed, has nephrotic range proteinuria, no urine eosinophils seen Will GN work-up- SAHIL, ANCA, SPEP, UPEP, serum free light chains, HIV, Hep panel, Anti-GBM, C3, C4 Renal US negative for obstruction, shows medical renal disease Renally dose medications Strict I&O monitoring Obtain daily weights Avoid nephrotoxic agents Monitor renal function closely If no improvement in renal function in next 24-48 hours then will consider hemodialysis, ordered GN work-up Subjective Date of service: 01/06/20 Principal diagnosis: Severe Renal Failure, TIA Interval history: denies acute issues Objective - Vital Signs Vital signs: Vital Signs - 12hr 01/06/20 12:35 Temperature 98.1 F Pulse Rate 61 Respiratory 20 Rate Blood Pressure 178/65 O2 Sat by Pulse 96 Oximetry - General Appearance General appearance: well-developed, well-nourished EENT: ATNC, PERRL, mucous membranes moist Neck: no JVD, no carotid bruit Respiratory: Present: Clear to Ascultation. Absent: Rales, Ronchi Cardiology: regular, S1S2 Gastrointestinal: normoactive bowel sounds, no tenderness, no distended, no masses Integumentary: no rash, warm and dry Neurologic: no focal deficit, no asterixis Psychiatric: mood/affect appropriate, cooperative - Lab 01/05/20 06:35 01/05/20 06:35 Most recent lab results Calcium 7.3 mg/dL (8.4-10.2) L 01/05/20 06:35 Magnesium 1.70 mg/dL (1.7-2.3) 01/05/20 06:35 Urine Creatinine 63.8 mg/dL (0.1-20.0) H 01/03/20 15:43 Urine Sodium 76 mmol/L 01/03/20 15:43 Urine Total Protein 196 mg/dL (5-11.8) H 01/03/20 15:43 Medications & Allergies - Medications Allergies/Adverse Reactions: Allergies No Known Allergies Allergy (Verified 10/31/18 14:50) Home Medications: Home Medications Medication Instructions Recorded Confirmed Last Taken Type Famotidine [Pepcid] 20 mg PO DAILY #30 tablet 08/19/18 09/10/19 Unknown Rx Hydralazine HCl 50 mg PO TID #90 tablet 08/19/18 09/10/19 Unknown Rx NIFEdipine XL [Procardia Xl] 90 mg PO QDAY #30 tablet 08/19/18 09/10/19 Unknown Rx Folic Acid [Folvite] 1 mg PO QDAY #30 tablet 11/01/18 09/10/19 Unknown Rx Multivitamin Tab [Multiple Vitamin 1 each PO QDAY #30 tablet 11/01/18 09/10/19 Unknown Rx TAB (Theragran)] Thiamine [Vitamin B-1] 100 mg PO QDAY #30 tablet 11/01/18 09/10/19 Unknown Rx Aspirin [Aspirin BABY CHEW TAB] 81 mg PO QDAY #30 tab.chew 04/07/19 09/10/19 Unknown Rx AtorvaSTATin [Lipitor] 40 mg PO QHS #30 tablet 04/07/19 09/10/19 Unknown Rx polyethylene glycoL 3350 [Miralax 17 gm PO QDAY PRN #30 powd.pack 04/07/19 09/10/19 Unknown Rx 3350] Active Medications: Generic Name Dose Route Start Last Admin Trade Name Freq PRN Reason Stop Dose Admin Acetaminophen 650 mg 01/02/20 23:19 Tylenol PO Q4H PRN Pain MILD(1-3)/Fever >100.5/LIRA Aspirin 81 mg 01/03/20 10:00 01/06/20 18:12 Baby Aspirin PO Not Given QDAY [facility] Atorvastatin Calcium 40 mg 01/03/20 22:00 01/05/20 22:13 Lipitor PO [address] [facility] Administration Famotidine 20 mg 01/03/20 10:00 01/06/20 18:12 Pepcid PO Not Given DAILY [facility] Folic Acid 1 mg 01/03/20 10:00 01/06/20 18:12 Folvite PO Not Given QDAY [facility] Heparin Sodium (Porcine) 5,000 unit 01/03/20 10:00 01/06/20 18:12 Heparin SUB-Q Not Given Q12HR [facility] Hydralazine HCl 50 mg 01/03/20 08:00 01/06/20 18:12 Apresoline PO Not Given TID [facility] Hydromorphone HCl 0.5 mg 01/02/20 23:19 Dilaudid IV Q3H PRN Pain , Severe (7-10) Sodium Chloride 1,000 mls @ 50 mls/hr 01/02/20 23:30 01/05/20 09:38 Nacl 0.9% 1000 Ml IV 75 mls/hr DIRECT MICHA Administration Magnesium Hydroxide 30 ml 01/05/20 18:30 01/05/20 18:46 Milk Of Magnesia PO 30 ml Q4H PRN Administration Constipation Multivitamins 1 each 01/03/20 10:00 01/06/20 18:13 Theragran Tab PO Not Given QDAY [facility] Nifedipine 90 mg 01/03/20 10:00 01/06/20 18:12 Procardia Xl PO Not Given QDAY [facility] Ondansetron HCl 4 mg 01/02/20 23:19 01/04/20 22:29 Zofran IV 4 mg Q8H PRN Administration Nausea And Vomiting Oxycodone/Acetaminophen 1 tab 01/02/20 23:19 01/04/20 17:57 Percocet 5/325 PO 1 tab Q6H PRN Administration Pain, Moderate (4-6) Polyethylene Glycol 17 gm 01/02/20 23:18 01/03/20 15:44 Miralax 3350 PO 17 gm QDAY PRN Administration Constipation Sodium Bicarbonate 650 mg 01/04/20 14:00 01/06/20 18:12 Sodium Bicarbonate PO Not Given TID [facility] Sodium Chloride 10 ml 01/03/20 10:00 01/06/20 18:13 Sodium Chloride Flush Syringe 10 Ml IV Not Given BID MICHA Sodium Chloride 10 ml 01/02/20 23:19 Sodium Chloride Flush Syringe 10 Ml IV PRN PRN LINE FLUSH Thiamine HCl 100 mg 01/03/20 10:00 01/06/20 18:13 Vitamin B-[address] PO Not Given QDAY [facility]
[2020-01-06] MEDS: SODIUM CHLORIDE 0.9% 1000 ML 1,000 ML IV SCH (21:32)
[2020-01-07 06:56] LABS: Basophils % (Auto) 0.8 % (0.0-1.8); Eosinophils # (Auto) 0.2 K/mm3 (0.0-0.4); Eosinophils % (Auto) 4.6 % (0.0-4.3); Hematocrit 22.9 % (35.5-45.6); Hemoglobin 7.6 gm/dl (11.8-15.2); Lymphocytes # (Auto) 1.2 K/mm3 (1.2-5.4); Lymphocytes % (Auto) 23.9 % (13.4-35.0); Mean Corpuscular HGB Conc 33 % (32-34); Mean Corpuscular Volume 87 fl (84-94); Monocytes # (Auto) 0.4 K/mm3 (0.0-0.8); Platelet Count 251 K/mm3 (140-440); Red Blood Count 2.63 M/mm3 (3.65-5.03); Red Cell Distribution Width 14.5 % (13.2-15.2)
[2020-01-07 07:24] LABS: Albumin 3.5 g/dL (3.9-5); Calcium 8.1 mg/dL (8.4-10.2)
--- NOTE | 2020-01-07 07:36 | Progress Note ---
Assessment and Plan Assessment and plan: TIA (transient ischemic attack) TIA work-up MRI brain and carotid duplex scan negative Bradycardia Cardiology consult requested Patient is stable otherwise No ischemia by MPI 03/2019. Normal LVEF, 65% by echo 10/2018. Normal coronaries by [facility] in 2013. Avoid AV jacqui blocking agents or sinus node depressants. Otherwise, conservative cardiac management. Hyperkalemia Treated with calcium gluconate. resolved Chronic kidney disease Nephrology following and recommending HD if no improvement next 24-48 hours. Pt refusing HD at present HTN (hypertension) Continue antihypertensive DVT prophylaxis On heparin and GI prophylaxis 01/07/2020. Patient has nephrotic range proteinuria. No urine eosinophils seen. Follow-up SAHIL, ANCA, SPEP, UPEP, serum free light chains, HIV, Hep panel, Anti-GBM, C3, C4. Renal ultrasound negative for obstruction and reveals medical renal disease. Continue strict JOSÉ MIGUEL monitoring, obtain daily weights and avoid nephrotoxic agents. I discussed the case with nephrology who will consider hemodialysis if patient is amenable. Patient previously refused hemodialysis. We will continue to follow. History Interval history: no new issues Hospitalist Physical - Constitutional Vitals: Temp Pulse Resp BP Pulse Ox 99.5 F 69 18 181/56 98 01/07/20 04:53 01/07/20 04:53 01/07/20 04:53 01/07/20 04:53 01/07/20 04:53 General appearance: Present: no acute distress, well-nourished - EENT Eyes: Present: PERRL, EOM intact ENT: hearing intact, clear oral mucosa, dentition normal - Neck Neck: Present: supple, normal ROM - Respiratory Respiratory effort: normal Respiratory: bilateral: CTA - Cardiovascular Rhythm: regular Heart Sounds: Present: S1 & S2. Absent: gallop, rub - Extremities Extremities: no ischemia, No edema, Full ROM - Abdominal General gastrointestinal: soft, non-tender, non-distended, normal bowel sounds - Integumentary Integumentary: Present: clear, warm, dry - Neurologic Neurologic: CNII-XII intact, moves all extremities HEART Score - HEART Score Troponin: Troponin T 0.024 ng/mL (0.00-0.029) 01/02/20 12:30 Results - Labs CBC & Chem 7: 01/07/20 05:50 01/07/20 05:50 Labs: Laboratory Last Values WBC 4.9 K/mm3 (4.5-11.0) 01/07/20 05:50 RBC 2.63 M/mm3 (3.65-5.03) L 01/07/20 05:50 Hgb 7.6 gm/dl (11.8-15.2) L 01/07/20 05:50 Hct 22.9 % (35.5-45.6) L 01/07/20 05:50 MCV 87 fl (84-94) 01/07/20 05:50 MCH 29 pg (28-32) 01/07/20 05:50 MCHC 33 % (32-34) 01/07/20 05:50 RDW 14.5 % (13.2-15.2) 01/07/20 05:50 Plt Count 251 K/mm3 (140-440) 01/07/20 05:50 Lymph % (Auto) 23.9 % (13.4-35.0) 01/07/20 05:50 [place] % (Auto) 8.0 % (0.0-7.3) H 01/07/20 05:50 Eos % (Auto) 4.6 % (0.0-4.3) H 01/07/20 05:50 Baso % (Auto) 0.8 % (0.0-1.8) 01/07/20 05:50 Lymph # (Auto) 1.2 K/mm3 (1.2-5.4) 01/07/20 05:50 [place] # (Auto) 0.4 K/mm3 (0.0-0.8) 01/07/20 05:50 Eos # (Auto) 0.2 K/mm3 (0.0-0.4) 01/07/20 05:50 Baso # (Auto) 0.0 K/mm3 (0.0-0.1) 01/07/20 05:50 Seg Neutrophils % 62.7 % (40.0-70.0) 01/07/20 05:50 Seg Neutrophils # 3.0 K/mm3 (1.8-7.7) 01/07/20 05:50 PT 14.3 Sec. (12.2-14.9) 01/02/20 12:30 INR 1.10 (0.87-1.13) 01/02/20 12:30 APTT 26.8 Sec. (24.2-36.6) 01/02/20 12:30 Thrombin Time 17.8 Sec. (15.1-19.6) 01/02/20 12:30 Sodium 147 mmol/L (137-145) H 01/07/20 05:50 Potassium 4.6 mmol/L (3.6-5.0) 01/07/20 05:50 Chloride 113.0 mmol/L (98-107) H 01/07/20 05:50 Carbon Dioxide 21 mmol/L (22-30) L 01/07/20 05:50 Anion Gap 18 mmol/L 01/07/20 05:50 BUN 45 mg/dL (9-20) H 01/07/20 05:50 Creatinine 5.1 mg/dL (0.8-1.3) H 01/05/20 06:35 Estimated GFR 14 ml/min 01/05/20 06:35 BUN/Creatinine Ratio 11 % 01/05/20 06:35 Glucose 89 mg/dL (75-100) 01/07/20 05:50 POC Glucose 104 mg/dL (70-105) 01/03/20 15:55 Hemoglobin A1c < 4.0 % (4-6) L 01/03/20 06:45 Calcium 8.1 mg/dL (8.4-10.2) L 01/07/20 05:50 Magnesium 1.70 mg/dL (1.7-2.3) 01/05/20 06:35 Total Bilirubin 0.40 mg/dL (0.1-1.2) 01/07/20 05:50 AST 14 units/L (5-40) 01/07/20 05:50 ALT 7 units/L (7-56) 01/07/20 05:50 Alkaline Phosphatase 68 units/L (35-129) 01/07/20 05:50 Total Creatine Kinase 274 units/L (55-170) H 01/02/20 12:30 CK-MB (CK-2) 4.8 ng/mL (0.0-4.0) H 01/02/20 12:30 CK-MB (CK-2) Rel Index 1.7 (0-4) 01/02/20 12:30 Troponin T 0.024 ng/mL (0.00-0.029) 01/02/20 12:30 Total Protein 6.6 g/dL (6.3-8.2) 01/07/20 05:50 Albumin 3.5 g/dL (3.9-5) L 01/07/20 05:50 Albumin/Globulin Ratio 1.1 % 01/07/20 05:50 TSH 1.620 mlU/mL (0.270-4.200) 01/02/20 12:30 Urine Color Straw (Yellow) 01/02/20 15:05 Urine Turbidity Clear (Clear) 01/02/20 15:05 Urine pH 6.0 (5.0-7.0) 01/02/20 15:05 Ur Specific [place] 1.010 (1.003-1.030) 01/02/20 15:05 Urine Protein 100 mg/dl mg/dL (Negative) 01/02/20 15:05 Urine Glucose (UA) Neg mg/dL (Negative) 01/02/20 15:05 Urine Ketones Neg mg/dL (Negative) 01/02/20 15:05 Urine Blood Sm (Negative) 01/02/20 15:05 Urine Nitrite Neg (Negative) 01/02/20 15:05 Urine Bilirubin Neg (Negative) 01/02/20 15:05 Urine Urobilinogen < 2.0 mg/dL (<2.0) 01/02/20 15:05 Ur Leukocyte Esterase Neg (Negative) 01/02/20 15:05 Urine WBC (Auto) 1.0 /HPF (0.0-6.0) 01/02/20 15:05 Urine RBC (Auto) 2.0 /HPF (0.0-6.0) 01/02/20 15:05 U Epithel Cells (Auto) 3.0 /HPF (0-13.0) 01/02/20 15:05 Urine Eosinophils None seen (None Seen) 01/03/20 15:43 Urine Creatinine 63.8 mg/dL (0.1-20.0) H 01/03/20 15:43 Protein/Creatinin Ratio 3.07 01/03/20 15:43 Urine Sodium 76 mmol/L 01/03/20 15:43 Urine Total Protein 196 mg/dL (5-11.8) H 01/03/20 15:43 Nasal Screen MRSA (PCR) Negative (Negative) 01/03/20 09:27 Urine Opiates Screen Presumptive negative 01/02/20 15:05 Urine Methadone Screen Presumptive negative 01/02/20 15:05 Ur Barbiturates Screen Presumptive negative 01/02/20 15:05 Ur Phencyclidine Scrn Presumptive negative 01/02/20 15:05 Ur Amphetamines Screen Presumptive negative 01/02/20 15:05 U Benzodiazepines Scrn Presumptive negative 01/02/20 15:05 Urine Cocaine Screen Presumptive negative 01/02/20 15:05 U Marijuana (THC) Screen Presumptive negative 01/02/20 15:05 Drugs of Abuse Note Disclamer 01/02/20 15:05 Hepatitis A IgM Ab Non-reactive (NonReactive) 01/05/20 15:32 Hep Bs Antigen Non-reactive (Negative) 01/05/20 15:32 Hep B Core IgM Ab Non-reactive (NonReactive) 01/05/20 15:32 Hepatitis C Antibody Non-reactive (NonReactive) 01/05/20 15:32 HIV 1&2 Antibody Rapid Non react (Non React) 01/05/20 15:32 HIV P24 Antigen Non react (Non React) 01/05/20 15:32 Marrufo/IV: Voiding Method Condom Catheter IV Catheter Type [Left Hand] INT / Saline Lock Active Medications - Current Medications Current Medications: Generic Name Dose Route Start Last Admin Trade Name Freq PRN Reason Stop Dose Admin Acetaminophen 650 mg 01/02/20 23:19 Tylenol PO Q4H PRN Pain MILD(1-3)/Fever >100.5/LIRA Aspirin 81 mg 01/03/20 10:00 01/06/20 18:12 Baby Aspirin PO Not Given QDAY [facility] Atorvastatin Calcium 40 mg 01/03/20 22:00 01/06/20 21:31 Lipitor PO 40 mg QHS MICHA Administration Famotidine 20 mg 01/03/20 10:00 01/06/20 18:12 Pepcid PO Not Given DAILY MICHA Folic Acid 1 mg 01/03/20 10:00 01/06/20 18:12 Folvite PO Not Given QDAY MICHA Heparin Sodium (Porcine) 5,000 unit 01/03/20 10:00 01/06/20 21:31 Heparin SUB-Q 5,000 unit Q12HR MICHA Administration Hydralazine HCl 50 mg 01/03/20 08:00 01/06/20 21:31 Apresoline PO 50 mg TID MICHA Administration Hydromorphone HCl 0.5 mg 01/02/20 23:19 Dilaudid IV Q3H PRN Pain , Severe (7-10) Sodium Chloride 1,000 mls @ 50 mls/hr 01/02/20 23:30 01/06/20 21:32 Nacl 0.9% 1000 Ml IV 75 mls/hr DIRECT MICHA Administration Magnesium Hydroxide 30 ml 01/05/20 18:30 01/05/20 18:46 Milk Of Magnesia PO 30 ml Q4H PRN Administration Constipation Multivitamins 1 each 01/03/20 10:00 01/06/20 18:13 Theragran Tab PO Not Given QDAY [facility] Nifedipine 90 mg 01/03/20 10:00 01/06/20 18:12 Procardia Xl PO Not Given QDAY [facility] Ondansetron HCl 4 mg 01/02/20 23:19 01/04/20 22:29 Zofran IV 4 mg Q8H PRN Administration Nausea And Vomiting Oxycodone/Acetaminophen 1 tab 01/02/20 23:19 01/04/20 17:57 Percocet 5/325 PO 1 tab Q6H PRN Administration Pain, Moderate (4-6) Polyethylene Glycol 17 gm 01/02/20 23:18 01/03/20 15:44 Miralax 3350 PO 17 gm QDAY PRN Administration Constipation Sodium Bicarbonate 650 mg 01/04/20 14:00 01/06/20 21:31 Sodium Bicarbonate PO 650 mg TID MICHA Administration Sodium Chloride 10 ml 01/03/20 10:00 01/06/20 21:32 Sodium Chloride Flush Syringe 10 Ml IV 10 ml BID MICHA Administration Sodium Chloride 10 ml 01/02/20 23:19 Sodium Chloride Flush Syringe 10 Ml IV PRN PRN LINE FLUSH Thiamine HCl 100 mg 01/03/20 10:00 01/06/20 18:13 Vitamin B-1 PO Not Given QDAY [facility] Nutrition/Malnutrition Assess - Dietary Evaluation Nutrition/Malnutrition Findings: Nutrition Notes Start: 01/03/20 11:40 Freq: Status: Active Protocol: Document 01/03/20 11:40 JENNIFER (Rec: 01/03/20 11:42 JENNIFER [id number]) Nutrition Notes Need for Assessment generated from: intellectual property legal assistant Initial or Follow up Brief Note Current Diagnosis CKD(stage I-IV),Diabetes, Hypertension,Heart Failure, Stroke Current Diet Cardiac Labs/Tests K 5.2 Subjective/Other Information RN screen for difficulty chewing. Pt reports having no teeth but eating 100% of meals and no wt loss. Pt aware of follow up options if he would like a pureed or mech soft diet. Nutrition Intervention Revisit per MD consult or patient Sign Off request:
--- NOTE | 2020-01-07 09:03 | Progress Note ---
Assessment and Plan Bradycardia, asymptomatic sinus rate has improved to normal levels TSH level was normal Hypertension Chronic kidney disease Anemia Cardiac tests: No ischemia by MPI 03/2019. Normal LVEF, 65% by echo 10/2018. Normal coronaries by [facility] in 2013. Avoid AV jacqui blocking agents or sinus node depressants. Otherwise, conservative cardiac management. Subjective Date of service: 01/07/20 Principal diagnosis: Severe Renal Failure, TIA Interval history: Patient is resting in bed comfortably. Stable sinus rhythm on telemetry, rate 65 Objective Vital Signs Temp Pulse Resp BP Pulse Ox 01/07/20 04:53 99.5 F 69 18 181/56 98 01/07/20 00:00 18 01/06/20 21:31 69 184/67 01/06/20 20:36 68 96 01/06/20 20:35 98.7 F 69 20 184/67 95 01/06/20 19:58 66 01/06/20 17:22 98.1 F 66 20 161/67 95 01/06/20 12:35 98.1 F 61 20 178/65 96 - Physical Examination General: No Apparent Distress HEENT: Positive: PERRL Neck: Positive: trachea midline Cardiac: Positive: Reg Rate and Rhythm Lungs: Positive: Decreased Breath Sounds Extremities: Absent: edema - Labs and Meds Cardiac Enzymes 01/07/20 Range/Units 05:50 AST 14 (5-40) units/L CBC 01/07/20 Range/Units 05:50 WBC 4.9 (4.5-11.0) K/mm3 RBC 2.63 L (3.65-5.03) M/mm3 Hgb 7.6 L (11.8-15.2) gm/dl Hct 22.9 L (35.5-45.6) % Plt Count 251 (140-440) K/mm3 Lymph # (Auto) 1.2 (1.2-5.4) K/mm3 [place] # (Auto) 0.4 (0.0-0.8) K/mm3 Eos # (Auto) 0.2 (0.0-0.4) K/mm3 Baso # (Auto) 0.0 (0.0-0.1) K/mm3 Comprehensive Metabolic Panel 01/07/20 Range/Units 05:50 Sodium 147 H (137-145) mmol/L Potassium 4.6 (3.6-5.0) mmol/L Chloride 113.0 H (98-107) mmol/L Carbon Dioxide 21 L (22-30) mmol/L BUN 45 H (9-20) mg/dL Creatinine 4.8 H (0.8-1.3) mg/dL Glucose 89 (75-100) mg/dL Calcium 8.1 L (8.4-10.2) mg/dL AST 14 (5-40) units/L ALT 7 (7-56) units/L Alkaline Phosphatase 68 (35-129) units/L Total Protein 6.6 (6.3-8.2) g/dL Albumin 3.5 L (3.9-5) g/dL
[2020-01-07] MEDS: THIAMINE 100 MG TAB PO SCH (10:04)
[2020-01-07] MEDS: MULTIVITAMINS ,THERAPEUTIC TAB PO SCH (10:04)
[2020-01-07] MEDS: ASPIRIN 81 MG TAB CHEW PO SCH (10:05)
[2020-01-07] MEDS: SODIUM BICARBONATE 650 MG TAB PO SCH ×3 (10:05→23:05)
[2020-01-07] MEDS: NIFEdipine XL 90 MG TAB PO SCH (10:05)
[2020-01-07] MEDS: FAMOTIDINE 20 MG TAB PO SCH (10:05)
[2020-01-07] MEDS: hydrALAZINE 25 MG TAB PO SCH ×3 (10:05→23:05)
[2020-01-07] MEDS: FOLIC ACID 1 MG TAB PO SCH (10:05)
[2020-01-07] MEDS: HEPARIN 5,000 UNIT/1 ML VIAL SUB-Q SCH ×2 (10:12→21:27)
--- NOTE | 2020-01-07 12:22 | Progress Note ---
Assessment and Plan Assessment: Acute Renal failure on possible CKD progression due to Hypertensive Nephrosclerosis and Diabetic nephropathy TIA S/P Hyperkalemia Anemia Hypertension Acidosis Plan: Renal labs reviewed. Serum creatinine 4.8 today, prior was 5.1 yesterday. Has good UOP of 1600 ml. Likely has progression of CKD Urine lytes reviewed, has nephrotic range proteinuria, no urine eosinophils seen GN work-up in progress- SAHIL, ANCA, SPEP, UPEP, serum free light chains, Anti- GBM, C3, C4- pending HIV and Hep panel-negative D/C NS Renal US negative for obstruction, shows medical renal disease Renally dose medications Strict I&O monitoring Obtain daily weights Avoid nephrotoxic agents No urgency for dialysis as patient is not uremic and is stable at present, he can be discharged with close nephrology follow-up outpatiently in 5 days as he will likely need dialysis in the near future Plan of care reviewed with Dr. Dorantes Subjective Date of service: 01/07/20 Principal diagnosis: Severe Renal Failure, TIA Interval history: Patient seen lying in bed. States he can walk again and wants to go home. Objective - Vital Signs Vital signs: Vital Signs - 12hr 01/07/20 01/07/20 04:53 10:05 Temperature 99.5 F Pulse Rate 69 Respiratory 18 Rate Blood Pressure 181/56 176/58 O2 Sat by Pulse 98 Oximetry - General Appearance General appearance: appears stated age, chronically ill, fatigue EENT: ATNC, PERRL, hearing intact, vision intact Neck: no JVD, supple Cardiology: S1S2 Gastrointestinal: normoactive bowel sounds Integumentary: warm and dry Neurologic: alert and oriented x3, upper extremity weakness Musculoskeletal: other (No edema) - Lab 01/07/20 05:50 01/07/20 05:50 Most recent lab results Calcium 8.1 mg/dL (8.4-10.2) L 01/07/20 05:50 Magnesium 1.70 mg/dL (1.7-2.3) 01/05/20 06:35 Urine Creatinine 63.8 mg/dL (0.1-20.0) H 01/03/20 15:43 Urine Sodium 76 mmol/L 01/03/20 15:43 Urine Total Protein 196 mg/dL (5-11.8) H 01/03/20 15:43 Medications & Allergies - Medications Allergies/Adverse Reactions: Allergies No Known Allergies Allergy (Verified 10/31/18 14:50) Home Medications: Home Medications Medication Instructions Recorded Confirmed Last Taken Type Famotidine [Pepcid] 20 mg PO DAILY #30 tablet 08/19/18 09/10/19 Unknown Rx Hydralazine HCl 50 mg PO TID #90 tablet 08/19/18 09/10/19 Unknown Rx NIFEdipine XL [Procardia Xl] 90 mg PO QDAY #30 tablet 08/19/18 09/10/19 Unknown Rx Folic Acid [Folvite] 1 mg PO QDAY #30 tablet 11/01/18 09/10/19 Unknown Rx Multivitamin Tab [Multiple Vitamin 1 each PO QDAY #30 tablet 11/01/18 09/10/19 Unknown Rx TAB (Theragran)] Thiamine [Vitamin B-1] 100 mg PO QDAY #30 tablet 11/01/18 09/10/19 Unknown Rx Aspirin [Aspirin BABY CHEW TAB] 81 mg PO QDAY #30 tab.chew 04/07/19 09/10/19 Unknown Rx AtorvaSTATin [Lipitor] 40 mg PO QHS #30 tablet 04/07/19 09/10/19 Unknown Rx polyethylene glycoL 3350 [Miralax 17 gm PO QDAY PRN #30 powd.pack 04/07/19 09/10/19 Unknown Rx 3350] Active Medications: Generic Name Dose Route Start Last Admin Trade Name Freq PRN Reason Stop Dose Admin Acetaminophen 650 mg 01/02/20 23:19 Tylenol PO Q4H PRN Pain MILD(1-3)/Fever >100.5/LIRA Aspirin 81 mg 01/03/20 10:00 01/07/20 10:05 Baby Aspirin PO 81 mg QDAY MICHA Administration Atorvastatin Calcium 40 mg 01/03/20 22:00 01/06/20 21:31 Lipitor PO 40 mg QHS MICHA Administration Famotidine 20 mg 01/03/20 10:00 01/07/20 10:05 Pepcid PO 20 mg DAILY MICHA Administration Folic Acid 1 mg 01/03/20 10:00 01/07/20 10:05 Folvite PO 1 mg QDAY MICHA Administration Heparin Sodium (Porcine) 5,000 unit 01/03/20 10:00 01/07/20 10:12 Heparin SUB-Q Not Given Q12HR MICHA Hydralazine HCl 50 mg 01/03/20 08:00 01/07/20 10:05 Apresoline PO 50 mg TID MICHA Administration Hydromorphone HCl 0.5 mg 01/02/20 23:19 Dilaudid IV Q3H PRN Pain , Severe (7-10) Sodium Chloride 1,000 mls @ 50 mls/hr 01/02/20 23:30 01/06/20 21:32 Nacl 0.9% 1000 Ml IV 75 mls/hr DIRECT MICHA Administration Magnesium Hydroxide 30 ml 01/05/20 18:30 01/05/20 18:46 Milk Of Magnesia PO 30 ml Q4H PRN Administration Constipation Multivitamins 1 each 01/03/20 10:00 01/07/20 10:04 Theragran Tab PO 1 each QDAY MICHA Administration Nifedipine 90 mg 01/03/20 10:00 01/07/20 10:05 Procardia Xl PO 90 mg QDAY MICHA Administration Ondansetron HCl 4 mg 01/02/20 23:19 01/04/20 22:29 Zofran IV 4 mg Q8H PRN Administration Nausea And Vomiting Oxycodone/Acetaminophen 1 tab 01/02/20 23:19 01/04/20 17:57 Percocet 5/325 PO 1 tab Q6H PRN Administration Pain, Moderate (4-6) Polyethylene Glycol 17 gm 01/02/20 23:18 01/03/20 15:44 Miralax 3350 PO 17 gm QDAY PRN Administration Constipation Sodium Bicarbonate 650 mg 01/04/20 14:00 01/07/20 10:05 Sodium Bicarbonate PO 650 mg TID MICHA Administration Sodium Chloride 10 ml 01/03/20 10:00 01/07/20 10:06 Sodium Chloride Flush Syringe 10 Ml IV 10 ml BID MICHA Administration Sodium Chloride 10 ml 01/02/20 23:19 Sodium Chloride Flush Syringe 10 Ml IV PRN PRN LINE FLUSH Thiamine HCl 100 mg 01/03/20 10:00 01/07/20 10:04 Vitamin B-1 PO 100 mg QDAY MICHA Administration
[2020-01-08] MEDS: hydrALAZINE 25 MG TAB PO SCH ×3 (01:24→15:13)
[2020-01-08] MEDS: SODIUM BICARBONATE 650 MG TAB PO SCH ×3 (01:24→15:14)
--- NOTE | 2020-01-08 09:05 | Progress Note ---
Assessment and Plan Sinus Bradycardia, resolved TSH level was normal Hypertension Chronic kidney disease Anemia Cardiac tests: No ischemia by MPI 03/2019. Normal LVEF, 65% by echo 10/2018. Normal coronaries by [facility] in 2013. Avoid AV jacqui blocking agents or sinus node depressants. Otherwise, conservative cardiac management. Subjective Date of service: 01/08/20 Principal diagnosis: Severe Renal Failure, TIA Interval history: Patient is resting in bed comfortably. Stable sinus rhythm on telemetry. Objective Vital Signs Temp Pulse Resp BP Pulse Ox 01/08/20 06:06 98.2 F 63 18 160/62 98 01/08/20 03:43 98.3 F 69 16 175/62 96 01/08/20 02:36 69 157/50 98 01/08/20 01:23 68 18 178/60 97 01/07/20 21:48 99.0 F 66 16 169/60 98 01/07/20 21:25 98.2 F 65 18 162/53 98 01/07/20 16:29 98.5 F 64 20 154/56 98 01/07/20 10:05 176/58 - Physical Examination General: No Apparent Distress HEENT: Positive: PERRL Neck: Positive: trachea midline Cardiac: Positive: Reg Rate and Rhythm Lungs: Positive: Decreased Breath Sounds Neuro: Positive: Grossly Intact Extremities: Absent: edema
--- NOTE | 2020-01-08 09:31 | Discharge Summary ---
Providers - Providers Date of Admission: 01/03/20 12:30 Date of discharge: 01/08/20 Attending physician: BRANDEE GONZALEZ 01/03/20 07:11 Consult to Physician [CONS] Routine Comment: Consulting Provider: KASEY ARANA Physician Instructions: Reason For Exam: ckd 01/03/20 07:12 Consult to Physician [CONS] Routine Comment: Consulting Provider: FREDI GREEN Physician Instructions: Reason For Exam: Bradycardia 01/05/20 14:30 Physical Therapy Evaluation and Treat [CONS] Routine Comment: Reason For Exam: weakness Primary care physician: TECHNICAL ENGINEER Hospitalization Condition: Serious Hospital course: : Subjective Date of service: 01/08/20 Principal diagnosis: Severe Renal Failure, TIA Interval history: 75-year-old male with history of polio affecting left side with weakness and numbness comes in for slurred speech and generalized weakness. This happened around 7 AM in the morning. Code stroke was called. Patient has a previous history of CVA with left-sided weakness and CHF diabetes and hypertension. Slurred speech has improved while in the emergency room. Patient being admitted as TIA. For observation and MRI. Creatinine deteriorating (1) acute kidney failure on chronic kidney disease Current Visit: Yes Status: Acute Plan to address problem: Nephrology consult appreciated Patient is a candidate for hemodialysis Refuses hemodialysis patient [facility] Plan from nephrology: Renal labs reviewed. Serum creatinine 4.8 today, prior was 5.1 yesterday. Has good UOP of 1600 ml. Likely has progression of CKD Urine lytes reviewed, has nephrotic range proteinuria, no urine eosinophils seen GN work-up in progress- SAHIL, ANCA, SPEP, UPEP, serum free light chains, Anti- GBM, C3, C4- pending HIV and Hep panel-negative D/C NS Renal US negative for obstruction, shows medical renal disease Renally dose medications Strict I&O monitoring Obtain daily weights Avoid nephrotoxic agents No urgency for dialysis as patient is not uremic and is stable at present, he can be discharged with close nephrology follow-up outpatiently in 5 days as he will likely need dialysis in the near future Patient to follow-up with with Dr. Beyer as outpatient (2) TIA (transient ischemic attack) Current Visit: Yes Status: Acute Plan to address problem: TIA work-up MRI brain and carotid duplex scan normal (3) Hyperkalemia Current Visit: Yes Status: Acute Plan to address problem: Treated with calcium gluconate Mild (4) HTN (hypertension) Current Visit: Yes Status: Chronic Qualifiers: Hypertension type: essential hypertension Qualified Code(s): I10 - Essential (primary) hypertension Plan to address problem: Continue antihypertensive (5) Bradycardia Current Visit: Yes Status: Acute Plan to address problem: Cardiology consult appreciated Patient is stable otherwise Disposition: DC-01 TO HOME OR SELFCARE - Discharge Diagnoses (1) TIA (transient ischemic attack) Status: Acute (2) Bradycardia Status: Acute (3) Hyperkalemia Status: Acute (4) Chronic kidney disease Status: Acute (5) HTN (hypertension) Status: Chronic Qualifiers: Hypertension type: essential hypertension Qualified Code(s): I10 - Essential (primary) hypertension (6) DVT prophylaxis Status: Acute Core Measure Documentation - Palliative Care Palliative Care/ Comfort Measures: Not Applicable - Core Measures Any of the following diagnoses?: none Exam - Constitutional Vitals: Temp Pulse Resp BP Pulse Ox 98.2 F 63 18 160/62 98 01/08/20 06:06 01/08/20 06:06 01/08/20 06:06 01/08/20 06:06 01/08/20 06:06 General appearance: Present: no acute distress, well-nourished - EENT Eyes: Present: PERRL ENT: hearing intact, clear oral mucosa - Neck Neck: Present: supple, normal ROM - Respiratory Respiratory effort: normal Respiratory: bilateral: CTA - Cardiovascular Heart rate: 78 Rhythm: regular Heart Sounds: Present: S1 & S2. Absent: rub, click - Extremities Extremities: pulses symmetrical, No edema Peripheral Pulses: within normal limits - Abdominal General gastrointestinal: Present: soft, non-tender, non-distended, normal bowel sounds Male genitourinary: Present: normal - Rectal Rectal Exam: deferred - Integumentary Integumentary: Present: clear, warm, dry - Musculoskeletal Musculoskeletal: gait normal, strength equal bilaterally - Psychiatric Psychiatric: appropriate mood/affect, intact judgment & insight - Neurologic Neurologic: CNII-XII intact, moves all extremities - Allied Health Allied health notes reviewed: nursing, case management Plan Activity: no restrictions Diet: renal Follow up with: CAMILLE ZAMORA MD [Primary Care Provider] - 7 Days MINNA BEYER MD [Staff Physician] - 7 Days
[2020-01-08] MEDS: FAMOTIDINE 20 MG TAB PO SCH (09:45)
[2020-01-08] MEDS: MULTIVITAMINS ,THERAPEUTIC TAB PO SCH (09:45)
[2020-01-08] MEDS: ASPIRIN 81 MG TAB CHEW PO SCH (09:46)
[2020-01-08] MEDS: FOLIC ACID 1 MG TAB PO SCH (09:46)
[2020-01-08] MEDS: THIAMINE 100 MG TAB PO SCH (09:47)
--- NOTE | 2020-01-08 10:26 | Progress Note ---
Assessment and Plan Acute Renal failure on possible CKD progression due to Hypertensive Nephrosclerosis and Diabetic nephropathy TIA S/P Hyperkalemia Anemia Hypertension Acidosis Plan: [place] kidney function, good UOP Likely has progression of CKD Renal US negative for obstruction, shows medical renal disease Renally dose medications Strict I&O monitoring Obtain daily weights Avoid nephrotoxic agents No urgency for dialysis as patient is not uremic and is stable at present, he can be discharged with close nephrology follow-up outpatiently in 5 days as he will likely need dialysis in the near future Subjective Date of service: 01/08/20 Principal diagnosis: Severe Renal Failure, TIA Interval history: denies acute issues Objective - Vital Signs Vital signs: Vital Signs - 12hr 01/08/20 01/08/20 01/08/20 01:23 02:36 03:43 Temperature 98.3 F Pulse Rate 68 69 69 Respiratory 18 16 Rate Blood Pressure 178/60 157/50 175/62 O2 Sat by Pulse 97 98 96 Oximetry 01/08/20 01/08/20 06:06 09:45 Temperature 98.2 F Pulse Rate 63 63 Respiratory 18 Rate Blood Pressure 160/62 148/55 O2 Sat by Pulse 98 Oximetry - General Appearance General appearance: well-developed, well-nourished EENT: ATNC, PERRL Neck: no carotid bruit Respiratory: Present: Clear to Ascultation. Absent: Rales Cardiology: regular, S1S2 Gastrointestinal: normoactive bowel sounds, no tenderness, no distended Integumentary: no rash, warm and dry Neurologic: no focal deficit, no asterixis Musculoskeletal: other (trace pitting edema in BLE) Psychiatric: cooperative - Lab 01/07/20 05:50 01/07/20 05:50 Most recent lab results Calcium 8.1 mg/dL (8.4-10.2) L 01/07/20 05:50 Magnesium 1.70 mg/dL (1.7-2.3) 01/05/20 06:35 Urine Creatinine 63.8 mg/dL (0.1-20.0) H 01/03/20 15:43 Urine Sodium 76 mmol/L 01/03/20 15:43 Urine Total Protein 196 mg/dL (5-11.8) H 01/03/20 15:43 Medications & Allergies - Medications Allergies/Adverse Reactions: Allergies No Known Allergies Allergy (Verified 10/31/18 14:50) Home Medications: Home Medications Medication Instructions Recorded Confirmed Last Taken Type Famotidine [Pepcid] 20 mg PO DAILY #30 tablet 08/19/18 09/10/19 Unknown Rx Multivitamin Tab [Multiple Vitamin 1 each PO QDAY #30 tablet 11/01/18 09/10/19 Unknown Rx TAB (Theragran)] polyethylene glycoL 3350 [Miralax 17 gm PO QDAY PRN #30 powd.pack 04/07/19 09/10/19 Unknown Rx 3350] Aspirin [Aspirin BABY CHEW TAB] 81 mg PO QDAY #30 tab.chew 01/08/20 Unknown Rx AtorvaSTATin [Lipitor] 40 mg PO QHS #30 tablet 01/08/20 Unknown Rx Folic Acid [Folvite] 1 mg PO QDAY #30 tablet 01/08/20 Unknown Rx NIFEdipine XL [Procardia Xl] 90 mg PO QDAY #30 tablet 01/08/20 Unknown Rx Sodium Bicarbonate 650 mg PO TID #90 tablet 01/08/20 Unknown Rx Thiamine [Vitamin B-1] 100 mg PO QDAY #30 tablet 01/08/20 Unknown Rx hydrALAZINE [Apresoline TAB] 50 mg PO TID #90 tablet 01/08/20 Unknown Rx oxyCODONE /ACETAMINOPHEN [Percocet 1 tab PO Q6H PRN #20 tablet 01/08/20 Unknown Rx 5/325 mg] Active Medications: Generic Name Dose Route Start Last Admin Trade Name Freq PRN Reason Stop Dose Admin Acetaminophen 650 mg 01/02/20 23:19 Tylenol PO Q4H PRN Pain MILD(1-3)/Fever >100.5/LIRA Aspirin 81 mg 01/03/20 10:00 01/08/20 09:46 Baby Aspirin PO 81 mg QDAY MICHA Administration Atorvastatin Calcium 40 mg 01/03/20 22:00 01/07/20 21:27 Lipitor PO 40 mg QHS MICHA Administration Famotidine 20 mg 01/03/20 10:00 01/08/20 09:45 Pepcid PO 20 mg DAILY MICHA Administration Folic Acid 1 mg 01/03/20 10:00 01/08/20 09:46 Folvite PO 1 mg QDAY MICHA Administration Heparin Sodium (Porcine) 5,000 unit 01/03/20 10:00 01/07/20 21:27 Heparin SUB-Q 5,000 unit Q12HR MICHA Administration Hydralazine HCl 50 mg 01/03/20 08:00 01/08/20 09:45 Apresoline PO 50 mg TID MICHA Administration Hydromorphone HCl 0.5 mg 01/02/20 23:19 Dilaudid IV Q3H PRN Pain , Severe (7-10) Magnesium Hydroxide 30 ml 01/05/20 18:30 01/05/20 18:46 Milk Of Magnesia PO 30 ml Q4H PRN Administration Constipation Multivitamins 1 each 01/03/20 10:00 01/08/20 09:45 Theragran Tab PO 1 each QDAY MICHA Administration Nifedipine 90 mg 01/03/20 10:00 01/07/20 10:05 Procardia Xl PO 90 mg QDAY MICHA Administration Ondansetron HCl 4 mg 01/02/20 23:19 01/04/20 22:29 Zofran IV 4 mg Q8H PRN Administration Nausea And Vomiting Oxycodone/Acetaminophen 1 tab 01/02/20 23:19 01/04/20 17:57 Percocet 5/325 PO 1 tab Q6H PRN Administration Pain, Moderate (4-6) Polyethylene Glycol 17 gm 01/02/20 23:18 01/03/20 15:44 Miralax 3350 PO 17 gm QDAY PRN Administration Constipation Sodium Bicarbonate 650 mg 01/04/20 14:00 01/08/20 09:46 Sodium Bicarbonate PO 650 mg TID MICHA Administration Sodium Chloride 10 ml 01/03/20 10:00 01/08/20 09:49 Sodium Chloride Flush Syringe 10 Ml IV 10 ml BID MICHA Administration Sodium Chloride 10 ml 01/02/20 23:19 Sodium Chloride Flush Syringe 10 Ml IV PRN PRN LINE FLUSH Thiamine HCl 100 mg 01/03/20 10:00 01/08/20 09:47 Vitamin B-1 PO 100 mg QDAY MICHA Administration
[2020-01-08] MEDS: NIFEdipine XL 90 MG TAB PO SCH (13:04)
[2020-01-08] MEDS: HEPARIN 5,000 UNIT/1 ML VIAL SUB-Q SCH (13:05)
[2020-01-08 15:14] VITALS: BP 140/52
[2020-01-08 16:00] LABS: Calcium 8.5 mg/dL (8.4-10.2)
[2020-01-10 09:55] LABS: Myeloperoxidase Antibody <1.0 AI (<1.0)
[2020-01-11 14:27] LABS: ANA Screen, IFA Negative (Negative)
[2020-01-12 23:22] LABS: Albumin 3.3 g/dL (3.8-4.8); Gamma Globulin 1.2 g/dL (0.8-1.7)
[2020-01-14 10:51] LABS: Abnormal Protein Band 1 SEE SCANNED RESULT; Abnormal Protein Band 2 SEE SCANNED RESULT; Albumin SEE SCANNED RESULT; Creatinine, Random Urine SEE SCANNED RESULT; Gamma Globulin SEE SCANNED RESULT; Interpretation SEE SCANNED RESULT; Protein/Creatinine Ratio SEE SCANNED RESULT
== END 2020-01-08 19:50 | disposition home or self-care (01) | DRG 683 ==
LOC: ED 11:55 → OBSVTOIN 18:33 → 4A 18:33 → INTOOBSV 18:33 → 4A 19:19 → OBSVTOIN 01-03 12:30 → 3A 01-04 18:09
PROVIDERS: ADMIT Internal Medicine; ATTEND Internal Medicine
DX: N17.9 Acute kidney failure, unspecified (principal); G45.9 Transient cerebral ischemic attack, unspecified; E87.2 Acidosis; I69.354 Hemiplegia and hemiparesis following cerebral infarction affecting left non-dominant side; I13.2 Hypertensive heart and chronic kidney disease with heart failure and with stage 5 chronic kidney disease, or end stage renal disease; N18.5 Chronic kidney disease, stage 5; E87.5 Hyperkalemia; I50.9 Heart failure, unspecified; D64.9 Anemia, unspecified; E11.42 Type 2 diabetes mellitus with diabetic polyneuropathy; E11.22 Type 2 diabetes mellitus with diabetic chronic kidney disease; R00.1 Bradycardia, unspecified; Z79.899 Other long term (current) drug therapy
CPT/HCPCS: 36415; 70450; 70551; 76770; 80048; 80053; 80074; 80307; 81001; 82550; 82553; 82570; 82962; 83036; 83520; 83735; 84156; 84165; 84166; 84300; 84443; 84484; 85025; 85610; 85670; 85730; 86021; 86038; 86160; 87641; 87806; 89050; 93005; 93880; 96365; 96372; 96375; G0378; A9270-GY; J1644; J2405; J7030

== ENCOUNTER 2020-08-11 19:16 | Emergency (ER) | payer MEDICARE ==
--- NOTE | 2020-08-12 00:41 | Emergency Department Report ---
ED General Adult HPI - General Chief complaint: Back Pain/Injury Stated complaint: BACK PAIN Time Seen by Provider: 08/11/20 22:52 Source: patient Mode of arrival: Ambulatory Limitations: No Limitations - History of Present Illness Initial comments: The patient presents to the emergency department the chief complaint of back pain that started 2 days ago. Patient states he has a history of polio and uses a walker to ambulate. Patient states 2 days ago he was leaving a medical appointment when he fell backwards landing on his back. Patient complains of sharp pain since that time. Is made worse with movement. Denies any issues with bowel or bladder. Patient denies hitting his head or loss consciousness. Patient denies any radiation of back pain into his legs -: Sudden Location: back Radiation: non-radiation Severity scale (0 -10): 6 Quality: sharp Consistency: constant Improves with: rest Worsens with: movement Associated Symptoms: denies other symptoms - Related Data Previous Rx's Medication Instructions Recorded Last Taken Type Famotidine [Pepcid] 20 mg PO DAILY #30 tablet 08/19/18 Unknown Rx Multivitamin Tab [Multiple Vitamin 1 each PO QDAY #30 tablet 11/01/18 Unknown Rx TAB (Theragran)] polyethylene glycoL 3350 [Miralax 17 gm PO QDAY PRN #30 powd.pack 04/07/19 Unknown Rx 3350] Aspirin [Aspirin BABY CHEW TAB] 81 mg PO QDAY #30 tab.chew 01/08/20 Unknown Rx AtorvaSTATin [Lipitor] 40 mg PO QHS #30 tablet 01/08/20 Unknown Rx Folic Acid [Folvite] 1 mg PO QDAY #30 tablet 01/08/20 Unknown Rx NIFEdipine XL [Procardia Xl] 90 mg PO QDAY #30 tablet 01/08/20 Unknown Rx Sodium Bicarbonate 650 mg PO TID #90 tablet 01/08/20 Unknown Rx Thiamine [Vitamin B-1] 100 mg PO QDAY #30 tablet 01/08/20 Unknown Rx hydrALAZINE [Apresoline TAB] 50 mg PO TID #90 tablet 01/08/20 Unknown Rx oxyCODONE /ACETAMINOPHEN [Percocet 1 tab PO Q6H PRN #20 tablet 01/08/20 Unknown Rx 5/325 mg] Allergies Allergy/AdvReac Type Severity Reaction Status Date / Time No Known Allergies Allergy Verified 10/31/18 14:50 ED Review of Systems ROS: Stated complaint: BACK PAIN Other details as noted in HPI Comment: All other systems reviewed and negative Constitutional: denies: chills, fever Eyes: denies: eye pain, eye discharge, vision change ENT: denies: ear pain, throat pain Respiratory: denies: cough, shortness of breath, wheezing Cardiovascular: denies: chest pain, palpitations Endocrine: no symptoms reported Gastrointestinal: denies: abdominal pain, nausea, diarrhea Genitourinary: denies: urgency, dysuria Musculoskeletal: back pain. denies: joint swelling, arthralgia Skin: denies: rash, lesions Neurological: denies: headache, weakness, paresthesias Psychiatric: denies: anxiety, depression Hematological/Lymphatic: denies: easy bleeding, easy bruising ED Past Medical Hx - Past Medical History Previous Medical History?: Yes Hx Hypertension: Yes Hx CVA: Yes (Left side deficit) Hx Heart Attack/AMI: No Hx Congestive Heart Failure: Yes Hx Diabetes: Yes Hx Deep Vein Thrombosis: No Hx Liver Disease: No Hx Renal Disease: Yes (CKD) Hx Arthritis: Yes Hx Seizures: No Hx Asthma: No Hx COPD: No Hx Tuberculosis: Yes Hx Dementia: No Additional medical 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 - Surgical History Hx Coronary Stent: No Hx Pacemaker: No Hx Internal Defibrillator: No Additional Surgical History: Right shoulder surgery - Social History Smoking Status: Never Smoker Substance Use Type: None - Medications Home Medications: Home Medications Medication Instructions Recorded Confirmed Last Taken Type Famotidine [Pepcid] 20 mg PO DAILY #30 tablet 08/19/18 09/10/19 Unknown Rx Multivitamin Tab [Multiple Vitamin 1 each PO QDAY #30 tablet 11/01/18 09/10/19 Unknown Rx TAB (Theragran)] polyethylene glycoL 3350 [Miralax 17 gm PO QDAY PRN #30 powd.pack 04/07/19 09/10/19 Unknown Rx 3350] Aspirin [Aspirin BABY CHEW TAB] 81 mg PO QDAY #30 tab.chew 01/08/20 Unknown Rx AtorvaSTATin [Lipitor] 40 mg PO QHS #30 tablet 01/08/20 Unknown Rx Folic Acid [Folvite] 1 mg PO QDAY #30 tablet 01/08/20 Unknown Rx NIFEdipine XL [Procardia Xl] 90 mg PO QDAY #30 tablet 01/08/20 Unknown Rx Sodium Bicarbonate 650 mg PO TID #90 tablet 01/08/20 Unknown Rx Thiamine [Vitamin B-1] 100 mg PO QDAY #30 tablet 01/08/20 Unknown Rx hydrALAZINE [Apresoline TAB] 50 mg PO TID #90 tablet 01/08/20 Unknown Rx oxyCODONE /ACETAMINOPHEN [Percocet 1 tab PO Q6H PRN #20 tablet 01/08/20 Unknown Rx 5/325 mg] ED Physical Exam - General Limitations: No Limitations General appearance: alert, in no apparent distress - Head Head exam: Present: atraumatic, normocephalic - Eye Eye exam: Present: normal appearance, PERRL, EOMI - ENT ENT exam: Present: mucous membranes moist - Neck Neck exam: Present: normal inspection - Respiratory Respiratory exam: Present: normal lung sounds bilaterally. Absent: respiratory distress - Cardiovascular Cardiovascular Exam: Present: regular rate, normal rhythm. Absent: systolic murmur, diastolic murmur, rubs, gallop - GI/Abdominal GI/Abdominal exam: Present: soft, normal bowel sounds - Rectal Rectal exam: Present: deferred - Extremities Exam Extremities exam: Present: normal inspection - Back Exam Back exam: Present: tenderness (Tenderness to palpation midline T-spine as well as midline L-spine) - Neurological Exam Neurological exam: Present: alert, oriented X3 - Psychiatric Psychiatric exam: Present: normal affect, normal mood - Skin Skin exam: Present: warm, dry, intact, normal color. Absent: rash ED Course Vital Signs 08/11/20 22:01 Temperature 97.8 F Pulse Rate 56 L Respiratory 16 Rate Blood Pressure 189/76 O2 Sat by Pulse 99 Oximetry ED Medical Decision Making - Radiology Data Radiology results: report reviewed - Medical Decision Making Discussed results with pt Critical care attestation.: If time is entered above; I have spent that time in minutes in the direct care of this critically ill patient, excluding procedure time. ED Disposition Clinical Impression: Fall, Back pain Disposition: DC-01 TO HOME OR SELFCARE Is pt being admited?: No Does the pt Need Aspirin: No Condition: Stable Instructions: Back Injury Prevention, Acute Back Pain, Adult Referrals: PRIMARY CARE, [Primary Care Provider] - 3-5 Days
--- NOTE | 2020-08-12 00:44 | Cat Scan Report ---
CLINICAL DATA:Post-fall with midline T-Spine ttp Post-fall with midline T-Spine ttp TECHNICAL DATA: CT reconstructions of the thoracic spine were performed in the axial, sagittal, and coronal imaging p lanes using bone algorithm and soft tissue algorithm in the axial imaging plane. All CT scans at this location are performed using CT dose reduction for ALARA by means of automated e xposure control FINDINGS: Bony alignment is normal. Vertebral body height and intervertebral disc spaces are well maintained. Posterior elements are intact. No evidence of a fracture or dislocation. No evidence of paraspinal l ine widening or paraspinal hematoma. IMPRESSION: Normal CT thoracic spine Signer Name: Michael Estrada MD Signed: 08/12/2020 12:39 AM Workstation Name: [id number]
--- NOTE | 2020-08-12 00:45 | Cat Scan Report ---
CLINICAL DATA: Post-fall with midline L-Spine ttp TECHNICAL DATA: CT imaging of the lumbar spine was performed from reconstructed images of the CT abdomen pelvis. Imag es were reconstructed in the axial, coronal, and sagittal imaging planes. All CT scans at this location are performed using CT dose reduction for ALARA by means of automated e xposure control. FINDINGS: L1-2: The thecal sac is normal. No evidence of disc herniation or disc bulge. Facets within normal limits. No evidence of spinal stenosis. L2-3: The thecal sac is normal. No evidence of disc herniation or disc bulge. Facets within normal limits. No evidence of spinal stenosis. L3-4: The thecal sac is normal. No evidence of disc herniation or disc bulge. Facets within normal limits. No evidence of spinal stenosis. L4-5: The thecal sac is normal. No evidence of disc herniation or disc bulge. Facet degenerative ch anges present. No evidence of spinal stenosis. L5-S1: The thecal sac is normal. No evidence of disc herniation or disc bulge. Facets within shirley l limits. No evidence of spinal stenosis. IMPRESSION: No acute traumatic abnormality identified Signer Name: Michael Estrada MD Signed: 08/12/2020 12:41 AM Workstation Name: [id number]
[2020-08-12 01:59] VITALS: BP 174/85
== END 2020-08-12 02:00 | disposition home or self-care (01) ==
LOC: ED 19:16
DX: M54.6 Pain in thoracic spine (principal); M79.604 Pain in right leg; M79.605 Pain in left leg; I11.0 Hypertensive heart disease with heart failure; I50.9 Heart failure, unspecified; E11.9 Type 2 diabetes mellitus without complications; M19.91 Primary osteoarthritis, unspecified site; Z98.890 Other specified postprocedural states; Z79.899 Other long term (current) drug therapy; W19.XXXA Unspecified fall, initial encounter; Y93.89 Activity, other specified; Y92.89 Other specified places as the place of occurrence of the external cause; Y99.8 Other external cause status
CPT/HCPCS: 72128; 72131

== ENCOUNTER 2020-08-18 16:06 | Inpatient (IN) | payer MEDICARE ==
--- NOTE | 2020-08-18 17:48 | Event Note ---
ED Screening Note Date of service: 08/18/20 Time: 17:47 ED Screening Note: Patient sent here by his PCP for elevated potassium of 6.8 Also complains of shortness of breath and mild chest pain History of CHF This initial assessment/diagnostic orders/clinical plan/treatment(s) is/are subject to change based on patients health status, clinical progression and re- assessment by fellow clinical providers in the ED. Further treatment and workup at subsequent clinical providers discretion. Patient/guardian urged not to elope from the ED as their condition may be serious if not clinically assessed and managed. Initial orders include: Labs EKG Chest x-ray
--- NOTE | 2020-08-18 18:28 | XRay Report ---
CHEST 2 VIEWS INDICATION / CLINICAL INFORMATION: chest pain. COMPARISON: 09/09/2019 FINDINGS: SUPPORT DEVICES: None. HEART / MEDIASTINUM: Stable. LUNGS / PLEURA: Worsened central pulmonary vascular congestion and patchy bilateral perihilar pulmona ry opacities. Interval development of small bilateral pleural effusions. No pneumothorax. ADDITIONAL FINDINGS: Stable screw within the right scapula. IMPRESSION: 1. Findings most consistent with congestive heart failure and interval development of bilateral inter stitial edema. Clinical correlation to rule out a superimposed infectious process is recommended. 2. Interval development of small bilateral pleural effusions. Signer Name: James Alegre MD Signed: 08/18/2020 6:23 PM Workstation Name: [id number]
--- NOTE | 2020-08-18 21:30 | Emergency Department Report ---
ED General Adult HPI - General Chief complaint: Medical Clearance Stated complaint: KIDNEYS PUI?: No Time Seen by Provider: 08/18/20 21:28 Source: patient Mode of arrival: Ambulatory Limitations: No Limitations - History of Present Illness Initial comments: Patient is a 74-year-old male who presents emergency room with complaints of high potassium. Patient states he was seeing his kidney doctor Dr. Vaughn and they found that his potassium was 6.8 and they sent to the hospital to be evaluated. Patient denies chest pain. Patient denies shortness of breath. Patient denies palpitations. Patient denies any physical plaints. Patient denies of pain. Patient states that he has a chronic kidney disease but is not on dialysis. Patient states his pain working with the reinforcing bar setter to get his kidneys to improve. Patient dates he has congestive heart failure. Patient states he has a history of high blood pressure and he is compliant with all of his medications. Patient denies recent travel. Patient denies recent international travel. Patient denies exposure to the novel coronavirus. Patient denies sick contacts. Patient denies fever and chills. Patient denies cough. Patient denies diarrhea. Patient denies coming in contact with anybody with symptoms of the novel coronavirus. -: Sudden Severity scale (0 -10): 0 Associated Symptoms: denies other symptoms Treatments Prior to Arrival: none - Related Data Previous Rx's Medication Instructions Recorded Last Taken Type Famotidine [Pepcid] 20 mg PO DAILY #30 tablet 08/19/18 Unknown Rx Multivitamin Tab [Multiple Vitamin 1 each PO QDAY #30 tablet 11/01/18 Unknown Rx TAB (Theragran)] polyethylene glycoL 3350 [Miralax 17 gm PO QDAY PRN #30 powd.pack 04/07/19 Unknown Rx 3350] Aspirin [Aspirin BABY CHEW TAB] 81 mg PO QDAY #30 tab.chew 01/08/20 Unknown Rx AtorvaSTATin [Lipitor] 40 mg PO QHS #30 tablet 01/08/20 Unknown Rx Folic Acid [Folvite] 1 mg PO QDAY #30 tablet 01/08/20 Unknown Rx NIFEdipine XL [Procardia Xl] 90 mg PO QDAY #30 tablet 01/08/20 Unknown Rx Sodium Bicarbonate 650 mg PO TID #90 tablet 01/08/20 Unknown Rx Thiamine [Vitamin B-1] 100 mg PO QDAY #30 tablet 01/08/20 Unknown Rx hydrALAZINE [Apresoline TAB] 50 mg PO TID #90 tablet 01/08/20 Unknown Rx oxyCODONE /ACETAMINOPHEN [Percocet 1 tab PO Q6H PRN #20 tablet 01/08/20 Unknown Rx 5/325 mg] Allergies Allergy/AdvReac Type Severity Reaction Status Date / Time Beta-Blockers AdvReac Anaphylaxis Verified 08/19/20 00:37 (Beta-Adrenergic Bloc ED Review of Systems ROS: Stated complaint: KIDNEYS Other details as noted in HPI Constitutional: denies: chills, fever Eyes: denies: eye pain, eye discharge, vision change ENT: denies: ear pain, throat pain Respiratory: denies: cough, shortness of breath, wheezing Cardiovascular: denies: chest pain, palpitations Endocrine: no symptoms reported Gastrointestinal: denies: abdominal pain, nausea, diarrhea Genitourinary: denies: urgency, dysuria Musculoskeletal: denies: back pain, joint swelling, arthralgia Skin: denies: rash, lesions Neurological: denies: headache, weakness, paresthesias Psychiatric: denies: anxiety, depression Hematological/Lymphatic: denies: easy bleeding, easy bruising ED Past Medical Hx - Past Medical History Previous Medical History?: Yes Hx Hypertension: Yes Hx CVA: Yes (Left side deficit) Hx Heart Attack/AMI: No Hx Congestive Heart Failure: Yes Hx Diabetes: Yes Hx Deep Vein Thrombosis: No Hx Liver Disease: No Hx Renal Disease: Yes (CKD) Hx Arthritis: Yes Hx Seizures: No Hx Asthma: No Hx COPD: No Hx Tuberculosis: Yes Hx Dementia: No Additional medical 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 - Surgical History Past Surgical History?: Yes Hx Coronary Stent: No Hx Pacemaker: No Hx Internal Defibrillator: No Additional Surgical History: Right shoulder surgery - Family History Family history: no significant - Social History Smoking Status: Current Every Day Smoker Substance Use Type: None - Medications Home Medications: Home Medications Medication Instructions Recorded Confirmed Last Taken Type Famotidine [Pepcid] 20 mg PO DAILY #30 tablet 08/19/18 09/10/19 Unknown Rx Multivitamin Tab [Multiple Vitamin 1 each PO QDAY #30 tablet 11/01/18 09/10/19 Unknown Rx TAB (Theragran)] polyethylene glycoL 3350 [Miralax 17 gm PO QDAY PRN #30 powd.pack 04/07/19 09/10/19 Unknown Rx 3350] Aspirin [Aspirin BABY CHEW TAB] 81 mg PO QDAY #30 tab.chew 01/08/20 Unknown Rx AtorvaSTATin [Lipitor] 40 mg PO QHS #30 tablet 01/08/20 Unknown Rx Folic Acid [Folvite] 1 mg PO QDAY #30 tablet 01/08/20 Unknown Rx NIFEdipine XL [Procardia Xl] 90 mg PO QDAY #30 tablet 01/08/20 Unknown Rx Sodium Bicarbonate 650 mg PO TID #90 tablet 01/08/20 Unknown Rx Thiamine [Vitamin B-1] 100 mg PO QDAY #30 tablet 01/08/20 Unknown Rx hydrALAZINE [Apresoline TAB] 50 mg PO TID #90 tablet 01/08/20 Unknown Rx oxyCODONE /ACETAMINOPHEN [Percocet 1 tab PO Q6H PRN #20 tablet 01/08/20 Unknown Rx 5/325 mg] ED Physical Exam - General Limitations: No Limitations General appearance: alert, in no apparent distress - Head Head exam: Present: atraumatic, normocephalic - Eye Eye exam: Present: normal appearance - ENT ENT exam: Present: mucous membranes moist - Neck Neck exam: Present: normal inspection - Respiratory Respiratory exam: Present: normal lung sounds bilaterally. Absent: respiratory distress - Cardiovascular Cardiovascular Exam: Present: regular rate, normal rhythm. Absent: systolic murmur, diastolic murmur, rubs, gallop - GI/Abdominal GI/Abdominal exam: Present: soft, normal bowel sounds - Rectal Rectal exam: Present: deferred - Extremities Exam Extremities exam: Present: normal inspection - Back Exam Back exam: Present: normal inspection - Neurological Exam Neurological exam: Present: alert, oriented X3 - Psychiatric Psychiatric exam: Present: normal affect, normal mood - Skin Skin exam: Present: warm, dry, intact, normal color. Absent: rash ED Course Vital Signs 08/18/20 08/18/20 08/18/20 17:34 17:35 21:10 Temperature 98.0 F Pulse Rate 60 69 Respiratory 20 19 Rate Blood Pressure 206/87 Blood Pressure 224/93 [Left] O2 Sat by Pulse 87 99 Oximetry 08/18/20 08/18/20 08/18/20 22:45 22:57 23:01 Temperature Pulse Rate Respiratory Rate Blood Pressure 227/95 227/95 250/96 Blood Pressure [Left] O2 Sat by Pulse 93 85 92 Oximetry 08/19/20 08/19/20 08/19/20 00:29 01:16 01:20 Temperature 98.4 F Pulse Rate 75 75 82 Respiratory 17 20 Rate Blood Pressure 188/78 215/85 Blood Pressure 176/81 [Left] O2 Sat by Pulse 100 99 Oximetry 08/19/20 01:27 Temperature 98 F Pulse Rate 76 Respiratory 22 Rate Blood Pressure 179/69 Blood Pressure [Left] O2 Sat by Pulse 99 Oximetry - Reevaluation(s) Reevaluation #1: I discussed all results with patient. I discussed plan of care with patient. Patient agrees with plan of care and admission. Patient to be admitted to the hospitalist service. 08/18/20 23:00 Reevaluation #2: Patient blood pressure still extremely elevated. Patient will be given IV Lasix and IV hydralazine. Patient also complains of being acutely short of breath. Patient oxygen saturation 94%. Patient have increased work of breathing. Patient will be placed on BiPAP. Hospitalist will be updated with these changes. 08/18/20 23:16 - Consultations Consultation #1: I discussed case with nephrology, Dr. VAUGHN. Dr. VAUGHN wants patient to be admitted and the patient to be given IV Lasix 80 mg and Kayexalate. 08/18/20 22:59 Consultation #2: Hospitalist consulted for admission. Hospitalist to admit patient. 08/18/20 23:00 Hospitalist updated with the changes BiPAP and the patient's admission orders will be changed to the IMCU. 08/18/20 23:20 ED Medical Decision Making - Lab Data Result diagrams: 08/18/20 21:19 08/18/20 21:19 - EKG Data -: EKG Interpreted by Me EKG shows normal: sinus rhythm, axis, intervals, QRS complexes, ST-T waves Rate: normal - Radiology Data Radiology results: report reviewed, image reviewed interpreted by me: Chest x-ray: No pneumonia, no pneumothorax, , no osseous findings, pulmonary edema CHEST 2 VIEWS INDICATION / CLINICAL INFORMATION: chest pain. COMPARISON: 09/09/2019 FINDINGS: SUPPORT DEVICES: None. HEART / MEDIASTINUM: Stable. LUNGS / PLEURA: Worsened central pulmonary vascular congestion and patchy bilateral perihilar pulmonary opacities. Interval development of small bilateral pleural effusions. No pneumothorax. ADDITIONAL FINDINGS: Stable screw within the right scapula. IMPRESSION: 1. Findings most consistent with congestive heart failure and interval development of bilateral interstitial edema. Clinical correlation to rule out a superimposed infectious process is recommended. 2. Interval development of small bilateral pleural effusions. - Medical Decision Making Patient is a 74-year-old male who presents emergency room with complaints of worsening kidney condition and hyperkalemia. Patient was sent here by his reinforcing bar setter. Patient has no physical complaints. Patient found to have extremely elevated blood pressure was given blood pressure medications. Patient found to be severely anemic at 6.8. Patient found to have a elevated creatinine. Patient typed and crossed and given 1 unit of red blood cells. I discussed the case with nephrology and nephrology gave recommendations of IV Lasix and Kayexalate. Patient had a chest x-ray showed pulmonary edema. Personally reviewed the chest x-ray. Patient had an EKG which shows normal sinus rhythm with no ST segment changes. I personally reviewed the EKG. While in the ER and late in the ER stay, the patient became acutely short of breath and increased work to breathe, and the patient was placed on BiPAP. Patient admitted to the hospital for further evaluation treatment. Critical care time documented due to the multiple reassessments, prolonged time at the bedside, interpretation of diagnostics and labs. - Differential Diagnosis Kidney failure, hyperkalemia, anemia, dehydration Critical Care Time: Yes Critical care time in (mins) excluding proc time.: 35 Critical care attestation.: If time is entered above; I have spent that time in minutes in the direct care of this critically ill patient, excluding procedure time. Critical Care Time: 35 minutes ED Disposition Clinical Impression: Hyperkalemia, Malignant hypertension, Hypertensive emergency Anemia Qualifiers: Anemia type: unspecified type Qualified Code(s): D64.9 - Anemia, unspecified Acute on chronic renal failure Qualifiers: Acute renal failure type: unspecified Chronic kidney disease stage: unspecified stage Qualified Code(s): N17.9 - Acute kidney failure, unspecified Pulmonary edema Qualifiers: Chronicity: acute Qualified Code(s): J81.0 - Acute pulmonary edema Respiratory failure Qualifiers: Chronicity: acute Respiratory failure complication: hypoxia Qualified Code(s): J96.01 - Acute respiratory failure with hypoxia Acute congestive heart failure Qualifiers: Heart failure type: unspecified Qualified Code(s): I50.9 - Heart failure, unspecified Disposition: DC-09 OP ADMIT IP TO THIS HOSP Is pt being admited?: Yes Does the pt Need Aspirin: No Condition: Critical Time of Disposition: 23:01
[2020-08-18 21:46] LABS: Basophils # (Auto) 0.1 K/mm3 (0.0-0.1); Basophils % (Auto) 1.2 % (0.0-1.8); Eosinophils # (Auto) 0.4 K/mm3 (0.0-0.4); Eosinophils % (Auto) 8.6 % (0.0-4.3); Hematocrit 20.3 % (35.5-45.6); Hemoglobin 6.8 gm/dl (11.8-15.2); Lymphocytes # (Auto) 1.1 K/mm3 (1.2-5.4); Lymphocytes % (Auto) 22.6 % (13.4-35.0); Mean Corpuscular HGB Conc 33 % (32-34); Mean Corpuscular Volume 89 fl (84-94); Monocytes # (Auto) 0.4 K/mm3 (0.0-0.8); Monocytes % (Auto) 8.1 % (0.0-7.3); Platelet Count 257 K/mm3 (140-440); Red Blood Count 2.29 M/mm3 (3.65-5.03); Red Cell Distribution Width 14.8 % (13.2-15.2)
[2020-08-18 22:12] LABS: Albumin 3.8 g/dL (3.9-5); Calcium 7.5 mg/dL (8.4-10.2)
[2020-08-18 22:24] LABS: Chol/HDL Ratio 2.34 %
[2020-08-18] MEDS ORDERED: SODIUM CHLORIDE 0.9% 500 ML 500 ML IV ONE (22:56)
[2020-08-18] MEDS ORDERED: SODIUM POLYSTYRENE 15 GM/60 ML ORAL LIQD PR ONE (22:57)
[2020-08-18] MEDS ORDERED: FUROSEMIDE 40 MG/4 ML INJ IV ONE (22:57)
[2020-08-18] MEDS ORDERED: hydrALAZINE 20 MG/1 ML INJ IV ONE (22:58)
[2020-08-18] MEDS ORDERED: NITROGLYCERIN 0.4 MG TAB SUBL SL PRN (23:24)
[2020-08-18] MEDS ORDERED: ALBUTEROL 2.5 MG/3 ML NEBU IH PRN (23:24)
[2020-08-18] MEDS ORDERED: DEXTROSE 50% IN WATER (25GM) 50 ML SYRINGE IV PRN (23:24)
[2020-08-18] MEDS ORDERED: ONDANSETRON 4 MG/2 ML INJ IV PRN (23:24)
--- NOTE | 2020-08-19 00:38 | History and Physical Report ---
History of Present Illness Date of examination: 08/18/20 Date of admission: 08/18/2020 Chief complaint: Worsening CKD, shortness of breath, bilateral lower extremity pitting edema History of present illness: 74-year-old -[place] male who is an ongoing smoker with history of arthritis, CHF, CVA with left-sided residual deficits, DM 2, HTN, and CKD stage IV who was referred to [facility] ED after being noted to have elevated potassium level at a routine appointment earlier today with his belt sander (). Patient reports he was told that his potassium was 6.8 earlier today while at his belt sander office and was told to report to the ED for further evaluation and treatment. Repeat of BMP in the ED showed potassium of 5.4, patient was treated with Kayexalate, pending follow-up lab results. Additionally patient was found to be in acute exacerbation of heart failure with BNP of 2 4,842. Patient denies use of home oxygen and initially denied shortness of breath. He was placed on supplemental oxygen, we will continue to monitor saturation. Denies chest pain, palpitation, cough, fever, chills, PND, orthopnea, nausea, vomiting, diarrhea, abdominal pain, alterations in vision, or recent sick contacts. Review of medical record shows patient was last seen in December 2019, at which time he was treated for TIA and and bradycardia. Cardiology suggested discontinuation of AV jacqui blocking agents and reduce his Procardia. Past History Past Medical History: arthritis, diabetes, heart failure, hypertension, renal failure (CKD 4), stroke (With left-sided residual deficits), other (TB exposure 40yrs ago, 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 Noncompliant with medications, ) Past Surgical History: Other ([facility] 2013, Right shoulder surgery) Social history: single, lives with family (Sister), smoking, full code. denies: alcohol abuse, prescription drug abuse, IV drug use Family history: hypertension Medications and Allergies Allergies Allergy/AdvReac Type Severity Reaction Status Date / Time Beta-Blockers AdvReac Anaphylaxis Verified 08/19/20 00:37 (Beta-Adrenergic Bloc Home Medications Medication Instructions Recorded Confirmed Last Taken Type Famotidine [Pepcid] 20 mg PO DAILY #30 tablet 08/19/18 09/10/19 Unknown Rx Multivitamin Tab [Multiple Vitamin 1 each PO QDAY #30 tablet 11/01/18 09/10/19 Unknown Rx TAB (Theragran)] polyethylene glycoL 3350 [Miralax 17 gm PO QDAY PRN #30 powd.pack 04/07/19 09/10/19 Unknown Rx 3350] Aspirin [Aspirin BABY CHEW TAB] 81 mg PO QDAY #30 tab.chew 01/08/20 Unknown Rx AtorvaSTATin [Lipitor] 40 mg PO QHS #30 tablet 01/08/20 Unknown Rx Folic Acid [Folvite] 1 mg PO QDAY #30 tablet 01/08/20 Unknown Rx NIFEdipine XL [Procardia Xl] 90 mg PO QDAY #30 tablet 01/08/20 Unknown Rx Sodium Bicarbonate 650 mg PO TID #90 tablet 01/08/20 Unknown Rx Thiamine [Vitamin B-1] 100 mg PO QDAY #30 tablet 01/08/20 Unknown Rx hydrALAZINE [Apresoline TAB] 50 mg PO TID #90 tablet 01/08/20 Unknown Rx oxyCODONE /ACETAMINOPHEN [Percocet 1 tab PO Q6H PRN #20 tablet 01/08/20 Unknown Rx 5/325 mg] Active Meds: Active Medications Acetaminophen (Acetaminophen 325 Mg Tab) 650 mg PO Q4H PRN PRN Reason: Pain MILD(1-3)/Fever >100.5/LIRA Albuterol (Albuterol 2.5 Mg/3 Ml Nebu) 2.5 mg IH Q3HRT PRN PRN Reason: Shortness Of Breath Aspirin (Aspirin 81 Mg Tab Chew) 81 mg PO QDAY MICHA Atorvastatin Calcium (Atorvastatin 40 Mg Tab) 40 mg PO QHS MICHA Dextrose (Dextrose 50% In Water (25gm) 50 Ml Syringe) 50 ml IV Q30MIN PRN; Protocol PRN Reason: Hypoglycemia Docusate Sodium (Docusate Sodium 100 Mg Cap) 100 mg PO BID MICHA Famotidine (Famotidine 20 Mg Tab) 20 mg PO DAILY MICHA Folic Acid (Folic Acid 1 Mg Tab) 1 mg PO QDAY MICHA Furosemide (Furosemide 40 Mg/4 Ml Inj) 40 mg IV ONCE MICHA Insulin Human Lispro (Insulin Lispro 100 Unit/Ml) 0 unit SUB-Q ACHS MICHA; Protocol Multivitamins (Multivitamins ,Therapeutic Tab) 1 each PO QDAY MICHA Nifedipine (Nifedipine Xl 30 Mg Tab) 30 mg PO QDAY MICHA Nitroglycerin (Nitroglycerin 0.4 Mg Tab Subl) 0.4 mg SL .Q5MIN PRN PRN Reason: Chest Pain Ondansetron HCl (Ondansetron 4 Mg/2 Ml Inj) 4 mg IV Q6H PRN PRN Reason: Nausea And Vomiting Sodium Chloride (Sodium Chloride 0.9% 10 Ml Flush Syringe) 10 ml IV BID MICHA Sodium Chloride (Sodium Chloride 0.9% 10 Ml Flush Syringe) 10 ml IV PRN PRN PRN Reason: LINE FLUSH Review of Systems All systems: negative (Except as noted in HPI) Exam - Physical Exam Narrative exam: Physical exam General appearance: Present: Chronically ill-appearing, no acute distress, alert and oriented 3, older adult, -[place] male - EENT Eyes: Present: PERRL, EOM intact ENT: hearing intact, no dentition - Neck Neck: Present: supple, normal ROM - Respiratory Respiratory effort: Non-labored Respiratory: Diminished bases - Cardiovascular Heart rate: 78 (bpm) Rhythm: Sinus prolonged SD interval Heart Sounds: Present: S1 & S2. Absent: rub, click - Extremities Extremities: no ischemia, pulses intact, 3+ bilateral lower extremity pitting edema - Peripheral Assessment Peripheral Pulses: within normal limits - Abdominal General gastrointestinal: soft, non-tender, normal bowel sounds - Integumentary Integumentary: Present: warm, dry, excoriation to right lower extremity - Musculoskeletal Musculoskeletal: Able to move all extremities, generalized weakness bilateral lower extremities, left-sided residual deficits from previous CVA -Neurological Neurological: CN II-XII intact - Psychiatric Psychiatric: cooperative - Constitutional Vitals: Temp Pulse Resp BP Pulse Ox 98.0 F 75 17 176/81 100 08/18/20 17:35 08/19/20 00:29 08/19/20 00:29 08/19/20 00:29 08/19/20 00:29 HEART Score - HEART Score Troponin: Troponin T 0.043 ng/mL (0.00-0.029) H 08/18/20 22:47 Results - Labs CBC & Chem 7: 08/18/20 21:19 08/18/20 21:19 Labs: Laboratory Last Values WBC 4.7 K/mm3 (4.5-11.0) 08/18/20 21:19 RBC 2.29 M/mm3 (3.65-5.03) L 08/18/20 21:19 Hgb 6.8 gm/dl (11.8-15.2) L 08/18/20 21:19 Hct 20.3 % (35.5-45.6) L 08/18/20 21:19 MCV 89 fl (84-94) 08/18/20 21:19 MCH 30 pg (28-32) 08/18/20 21:19 MCHC 33 % (32-34) 08/18/20 21:19 RDW 14.8 % (13.2-15.2) 08/18/20 21:19 Plt Count 257 K/mm3 (140-440) 08/18/20 21:19 Lymph % (Auto) 22.6 % (13.4-35.0) 08/18/20 21:19 Tyrrell % (Auto) 8.1 % (0.0-7.3) H 08/18/20 21:19 Eos % (Auto) 8.6 % (0.0-4.3) H 08/18/20 21:19 Baso % (Auto) 1.2 % (0.0-1.8) 08/18/20 21:19 Lymph # (Auto) 1.1 K/mm3 (1.2-5.4) L 08/18/20 21:19 Tyrrell # (Auto) 0.4 K/mm3 (0.0-0.8) 08/18/20 21:19 Eos # (Auto) 0.4 K/mm3 (0.0-0.4) 08/18/20 21:19 Baso # (Auto) 0.1 K/mm3 (0.0-0.1) 08/18/20 21:19 Seg Neutrophils % 59.5 % (40.0-70.0) 08/18/20 21: Seg Neutrophils # 2.8 K/mm3 (1.8-7.7) 08/18/20 21:19 Sodium 145 mmol/L (137-145) 08/18/20 21:19 Potassium 5.4 mmol/L (3.6-5.0) H 08/18/20 21:19 Chloride 109.5 mmol/L (98-107) H 08/18/20 21:19 Carbon Dioxide 19 mmol/L (22-30) L 08/18/20 21:19 Anion Gap 22 mmol/L 08/18/20 21:19 BUN 89 mg/dL (9-20) H 08/18/20 21:19 Creatinine 6.8 mg/dL (0.8-1.3) H 08/18/20 21:19 Estimated GFR 10 ml/min 08/18/20 21:19 BUN/Creatinine Ratio 13 % 08/18/20 21:19 Glucose 81 mg/dL (75-100) 08/18/20 21:19 Calcium 7.5 mg/dL (8.4-10.2) L 08/18/20 21:19 Phosphorus 5.20 mg/dL (2.5-4.5) H 08/18/20 21:19 Magnesium 1.80 mg/dL (1.7-2.3) 08/18/20 21:19 Total Bilirubin 0.20 mg/dL (0.1-1.2) 08/18/20 21:19 AST 13 units/L (5-40) 08/18/20 21:19 ALT 10 units/L (7-56) 08/18/20 21:19 Alkaline Phosphatase 75 units/L (35-129) 08/18/20 21:19 Troponin T 0.043 ng/mL (0.00-0.029) H 08/18/20 22:47 NT-Pro-B Natriuret Pep 77768 pg/mL (0-900) H 08/18/20 21:19 Total Protein 6.9 g/dL (6.3-8.2) 08/18/20 21:19 Albumin 3.8 g/dL (3.9-5) L 08/18/20 21:19 Albumin/Globulin Ratio 1.2 % 08/18/20 21:19 Triglycerides 46 mg/dL (2-149) 08/18/20 21:19 Cholesterol 103 mg/dL (50-199) 08/18/20 21:19 LDL Cholesterol Direct 62 mg/dL (50-130) 08/18/20 21:19 HDL Cholesterol 44 mg/dL (40-59) 08/18/20 21:19 Cholesterol/HDL Ratio 2.34 % 08/18/20 21:19 Blood Type O POSITIVE 08/18/20 22:47 Antibody Screen Negative 08/18/20 22:47 Crossmatch See Detail 08/18/20 22:47 - Diagnostic Impressions Diagnostic Impressions: CXR: IMPRESSION: 1. Findings most consistent with congestive heart failure and interval development of bilateral interstitial edema. Clinical correlation to rule out a superimposed infectious process is recommended. 2. Interval development of small bilateral pleural effusions. Assessment and Plan Assessment and plan: Acute on chronic kidney disease -History of CKD stage IV -BUN/creatinine 89/6.8 on admission -Nephrology consulted in ED (), with plans to see patient in a.m., recs appreciated -Renal dose all meds -Avoid nephrotoxic agents -Monitor renal function Anemia -Due to chronic renal failure -Hemoglobin on admission 6.8 -1 unit PRBC ordered in the ED, transfusion pending -Continue to monitor hemoglobin -Transfuse as needed Hyperkalemia -Potassium 5.4 on admission -Received Kayexalate in ED -F/U repeat labs Acute Exacerbation CHF -EF 65% seen on Echo 10/2018 -Established patient of [facility] [place] [id number] -Troponin elevated x2, now 0.043, trending down from 0.048 on admission, will continue to trend -Likely due to cardio renal disease -CXR most consistent with congestive heart failure and interval development of bilateral interstitial edema -Diuresis per nephrology recommendations, due to renal function -Patient has had multiple MPI stress testing, most recent was 03/2019 which was negative for ischemia -We will defer additional cardiac work-up per cardiology recommendations -Cardiology consulted Hypertensive urgency -History of malignant hypertension noncompliant with meds -Received IV antihypertensive in ED -Continue to monitor -Resume home meds -IV antihypertensive meds as needed Acute hypoxic respiratory failure -No Baseline home oxygen requirements -Saturation of 85% on room air -Follow-up ABG -Currently on supplemental -Monitor saturations -Continue supplemental oxygen wean as tolerated DM -POC BG monitoring -SSI coverage prn -HgbA1C pending Tobacco abuse -Current every day smoker -Counseled for cessation -Nicotine patch when necessary DVT and GI PPX -On heparin and Pepcid Advance Directives: No VTE prophylaxis?: Chemical, Mechanical Plan of care discussed with patient/family: Yes
[2020-08-19] MEDS ORDERED: SODIUM CHLORIDE 0.9% 1000 ML 1,000 ML ONE (01:07)
[2020-08-19] MEDS ORDERED: hydrALAZINE 20 MG/1 ML INJ ONE (01:20)
[2020-08-19] MEDS ORDERED: hydrALAZINE 20 MG/1 ML INJ IV ONE (01:24)
[2020-08-19] MEDS ORDERED: FUROSEMIDE 40 MG/4 ML INJ IV SCH ×2 (02:30→07:30)
--- NOTE | 2020-08-19 07:10 | Consultation ---
History of Present Illness - Reason for Consult Consult date: 08/19/20 chronic renal failure, end stage renal disease, hyperkalemia - History of Present Illness The patient is a 74 YO male known to our service with history significant for Hypertension, Type 2 DM, Polio as child, Charcot Jessica Tooth disease, CVA, Anemia, CKD stage 5 and Medical non-compliance who was sent from our office to [facility] ED 08/18 to initiate hemodialysis. Patient had lab test done on 08/10 which showed K of 6.8. Patient was see at our office on 08/18. He reports worsening b/l leg swelling, fatigue and decreased appetite. He denies N, V, D, abd pain, diaphoresis, palpitations, shortness of breath, cp, dizziness, syncope, dysuria or hematuria. Patient previously not want to do dialysis but agreed to proceed with hemodialysis and hence he was sent to the ED for admission and to intiate hemodialysis. Labs significant for 6.8, BUN 89, K 5.4, bicarb 19, Hb 6.8, BNP >24K and Troponin 0.048. Nephrology was consulted for further evaluation and treatment. Past History Past Medical History: arthritis, diabetes, heart failure, hypertension, renal failure (CKD 4), stroke (With left-sided residual deficits), other (TB exposure 40yrs ago, Polio as child, Charcot jessica tooth disease. Noncompliant with medications, ) Past Surgical History: Other ([facility] 2013, Right shoulder surgery) Social history: single, lives with family (Sister), smoking, full code. denies: alcohol abuse, prescription drug abuse, IV drug use Family history: hypertension Medications and Allergies Allergies Allergy/AdvReac Type Severity Reaction Status Date / Time Beta-Blockers AdvReac Anaphylaxis Verified 08/19/20 00:37 (Beta-Adrenergic Bloc Home Medications Medication Instructions Recorded Confirmed Last Taken Type Aspirin [Aspirin BABY CHEW TAB] 81 mg PO QDAY #30 tab.chew 01/08/20 08/19/20 Unknown Rx Sodium Bicarbonate 650 mg PO TID #90 tablet 01/08/20 08/19/20 Unknown Rx Acetaminophen [Tylenol] 500 mg PO Q8HR PRN 08/19/20 08/19/20 Unknown History Furosemide [Lasix] 40 mg PO DAILY 08/19/20 08/19/20 Unknown History NIFEdipine [Nifedipine ER] 60 mg PO DAILY 08/19/20 08/19/20 Unknown History Pantoprazole Sodium 40 mg PO DAILY 08/19/20 08/19/20 Unknown History Active Meds: Active Medications Acetaminophen (Acetaminophen 325 Mg Tab) 650 mg PO Q4H PRN PRN Reason: Pain MILD(1-3)/Fever >100.5/LIRA Albuterol (Albuterol 2.5 Mg/3 Ml Nebu) 2.5 mg IH Q3HRT PRN PRN Reason: Shortness Of Breath Aspirin (Aspirin 81 Mg Tab Chew) 81 mg PO QDAY MICHA Atorvastatin Calcium (Atorvastatin 40 Mg Tab) 40 mg PO QHS MICHA Dextrose (Dextrose 50% In Water (25gm) 50 Ml Syringe) 50 ml IV Q30MIN PRN; Pr otocol PRN Reason: Hypoglycemia Docusate Sodium (Docusate Sodium 100 Mg Cap) 100 mg PO BID MICHA Famotidine (Famotidine 20 Mg Tab) 20 mg PO DAILY MICHA Folic Acid (Folic Acid 1 Mg Tab) 1 mg PO QDAY MICHA Insulin Human Lispro (Insulin Lispro 100 Unit/Ml) 0 unit SUB-Q ACHS MICHA; Protocol Multivitamins (Multivitamins ,Therapeutic Tab) 1 each PO QDAY MICHA Nicotine (Nicotine 14 Mg/24 Hr Patch) 14 mg TD QDAY MICHA Nifedipine (Nifedipine Xl 30 Mg Tab) 30 mg PO QDAY MICHA Nitroglycerin (Nitroglycerin 0.4 Mg Tab Subl) 0.4 mg SL .Q5MIN PRN PRN Reason: Chest Pain Ondansetron HCl (Ondansetron 4 Mg/2 Ml Inj) 4 mg IV Q6H PRN PRN Reason: Nausea And Vomiting Sodium Chloride (Sodium Chloride 0.9% 10 Ml Flush Syringe) 10 ml IV BID MICHA Sodium Chloride (Sodium Chloride 0.9% 10 Ml Flush Syringe) 10 ml IV PRN PRN PRN Reason: LINE FLUSH Review of Systems Constitutional: anorexia, fatigue, weakness, poor appetite, no weight loss, no weight gain, no fever, no chills Cardiovascular: edema, high blood pressure, leg edema, decreased exercise tolerance, no chest pain, no orthopnea, no syncope, no lightheadedness, no shortness of breath Respiratory: no cough, no shortness of breath, no dyspnea on exertion Gastrointestinal: no abdominal pain, no nausea, no vomiting, no diarrhea Genitourinary Male: no dysuria, no hematuria Musculoskeletal: muscle weakness, limitation of motion, gait dysfunction, no muscle cramps, no myalgias Integumentary: no rash Neurological: paralysis, weakness, no change in mentation, no confusion, no memory loss Exam - Vital Signs Vital signs: Vital Signs Pulse 60 08/18/20 17:34 Results - Lab Results 08/19/20 10:28 08/19/20 05:05 Most recent lab results ABG pH 7.382 (7.320-7.450) 08/19/20 01:18 ABG O2 Saturation 98.7 (0-100) 08/19/20 01:18 Calcium 7.5 mg/dL (8.4-10.2) L 08/18/20 21:19 Phosphorus 5.20 mg/dL (2.5-4.5) H 08/18/20 21:19 Magnesium 1.80 mg/dL (1.7-2.3) 08/18/20 21:19 Assessment and Plan 1. ESRD: CKD has progressed to ESRD/ Patient was admitted with uremic symptoms and elevated creatinine from his baseline. CKD most likely from hypertensive nephropathy. Prior workup include SAHIL, ANCA, GBM Ab, complements, SPEP, UPEP, Hep panel and HIV were negative. [place]:Lambda ratio was elevated. Monitor renal function. Renal prognosis is poor. Avoid nephrotoxic agents. Meds dosage based on GFR. Patient require hemodialysis as CKD progressed to ESRD and presented with uremia, hyperkalemia, metabolic acidosis and volume overload. D/w patient the indications, benefits, risks and alternatives involved in hemodialysis. He voiced understanding and gave verbal consent. Vascular consulted for tunnel hemodialysis catheter placement and HD ordered placed. 2. FEN: Hyperkalemia, HD today. Metabolic acidosis, HD today, monitor. Volume overload, UF with HD. Monitor lytes. 3. Anemia, POA: S/p PRBC. Epogen with HD. 4. Uncontrolled HTN: Resume home meds. UF with HD. 5. Decompensated CHF: BP and volume control. EF 65% seen on Echo 10/2018. Strict I/O, fluid restriction, low sodium diet. 6. Acute hypoxic respiratory failure, POA: 2/2 fluid overload. Supplemental O2. UF with HD. 7. Type II DM: Accu-Chek sliding scale coverage ADA diet. 8. Tobacco abuse: Smoking cessation counseling. 9. Medical non-compliance: Counseled. Subjective: Pt was seen and examined at the bedside. Examination: General appearance: well-developed, appears stated age, appears emaciated, not in distress HEENT: ATNC, LINDSAY, hearing intact, vision intact Neck: neck supple, trachea midline Respiratory: Clear to Ascultation Heart: regular, S1S2, no murmur Gastrointestinal: Soft, normoactive bowel sounds, obese Integumentary: no rash, warm and dry Neurologic: able to move extremities, bilateral claw hand, no asterixis Ext: 1+ LE edema noted
[2020-08-19] MEDS: INSULIN LISPRO 100 UNIT/ML SUB-Q SCH ×4 (08:00→21:29)
[2020-08-19] MEDS ORDERED: SODIUM POLYSTYRENE 15 GM/60 ML ORAL LIQD PO SCH (08:00)
--- NOTE | 2020-08-19 09:07 | Progress Note ---
Assessment and Plan Assessment and plan: --Acute hyperkalemia Potassium 5.7, management per nephrology Considering hemodialysis today --Fluid overload; Secondary to ESRD Nephrology initiating hemodialysis today --chronic kidney disease changed to ESRD Management per nephrology --Anemia of chronic kidney disease; Hb 6.8, received 1 unit of PRBC, Hb improved to 8.0 Closely monitor H&H, transfuse additional PRBC as needed --Acute Exacerbation CHF/fluid overload due to ESRD Continue antifailure medications, nephrology initiating HD EF 65% seen on Echo 10/2018 -CXR most consistent with congestive heart failure and interval development of b ilateral interstitial edema -Patient has had multiple MPI stress testing, most recent was 03/2019 which was negative for ischemia -Cardiology consulted --Hypertensive urgency present on admission Moderate control Continue current antihypertensives and as needed medications --Acute hypoxic respiratory failure Due to fluid overload, acute on chronic congestive heart failure Continue antifailure medications. Hemodialysis per nephrology Input output monitoring, fluid and salt restriction -Continue supplemental oxygen wean as tolerated --Type II DM Accu-Chek sliding scale coverage ADA diet Insulin as needed, HbA1c --Tobacco abuse Smoking cessation counseling Advised nicotine patch as needed --DVT prophylaxis; Heparin renal dose We will closely monitor the patient and adjust management as needed Plan of care reviewed with the patient and his nurse I also discussed with middleware systems architect Dr. Ann Discussed with [facility] primary care physician Dr. Mock Advance Directives: No VTE prophylaxis?: Chemical, Mechanical Plan of care discussed with patient/family: Yes History Interval history: I have seen and examined the patient at the bedside in [facility] Patient's chart and medications reviewed Patient is admitted with hyperkalemia. Worsening shortness of breath. End-stag e renal disease Vital signs noted Hospitalist Physical - Constitutional Vitals: Temp Pulse Resp BP Pulse Ox 98.9 F 68 14 155/50 95 08/19/20 08:00 08/19/20 07:00 08/19/20 07:00 08/19/20 07:00 08/19/20 07:00 General appearance: Present: no acute distress, well-nourished - EENT Eyes: Present: PERRL, EOM intact - Neck Neck: Present: supple, normal ROM - Respiratory Respiratory effort: normal Respiratory: bilateral: diminished, rales, negative: rhonchi, wheezing - Cardiovascular Rhythm: regular Heart Sounds: Present: S1 & S2 - Extremities Extremities: no ischemia, No edema - Abdominal General gastrointestinal: soft, non-tender, non-distended, normal bowel sounds - Integumentary Integumentary: Present: clear, warm - Psychiatric Psychiatric: appropriate mood/affect, cooperative - Neurologic Neurologic: CNII-XII intact, moves all extremities HEART Score - HEART Score Troponin: Troponin T 0.043 ng/mL (0.00-0.029) H 08/18/20 22:47 Results - Labs CBC & Chem 7: 08/19/20 10:28 08/19/20 05:05 Labs: Laboratory Last Values WBC 4.7 K/mm3 (4.5-11.0) 08/18/20 21:19 RBC 2.29 M/mm3 (3.65-5.03) L 08/18/20 21:19 Hgb 6.8 gm/dl (11.8-15.2) L 08/18/20 21:19 Hct 20.3 % (35.5-45.6) L 08/18/20 21:19 MCV 89 fl (84-94) 08/18/20 21:19 MCH 30 pg (28-32) 08/18/20 21:19 MCHC 33 % (32-34) 08/18/20 21:19 RDW 14.8 % (13.2-15.2) 08/18/20 21:19 Plt Count 257 K/mm3 (140-440) 08/18/20 21:19 Lymph % (Auto) 22.6 % (13.4-35.0) 08/18/20 21:19 [place] % (Auto) 8.1 % (0.0-7.3) H 08/18/20 21:19 Eos % (Auto) 8.6 % (0.0-4.3) H 08/18/20 21:19 Baso % (Auto) 1.2 % (0.0-1.8) 08/18/20 21:19 Lymph # (Auto) 1.1 K/mm3 (1.2-5.4) L 08/18/20 21:19 [place] # (Auto) 0.4 K/mm3 (0.0-0.8) 08/18/20 21:19 Eos # (Auto) 0.4 K/mm3 (0.0-0.4) 08/18/20 21:19 Baso # (Auto) 0.1 K/mm3 (0.0-0.1) 08/18/20 21:19 Seg Neutrophils % 59.5 % (40.0-70.0) 08/18/20 21:19 Seg Neutrophils # 2.8 K/mm3 (1.8-7.7) 08/18/20 21:19 ABG pH 7.382 (7.320-7.450) 08/19/20 01:18 POC ABG pCO2 27.8 mmHg (32.0-48.0) L 08/19/20 01:18 POC ABG pO2 114.3 mmHg (83-108) H 08/19/20 01:18 POC ABG HCO3 16.2 08/19/20 01:18 ABG O2 Saturation 98.7 (0-100) 08/19/20 01:18 POC ABG Base Excess -8.1 08/19/20 01:18 ABG Hemoglobin 7.2 (12.0-17.5) L 08/19/20 01:18 ABG Oxyhemoglobin 97.0 (94-98) 08/19/20 01:18 ABG Methemoglobin 0.3 (0.0-1.5) 08/19/20 01:18 ABG Sodium 144.1 mmol/L (136.0-145.0) 08/19/20 01:18 ABG Potassium 5.4 mmol/L (3.40-4.50) H 08/19/20 01:18 ABG Chloride 113.0 mmol/L (98-107) H 08/19/20 01:18 ABG Glucose 90 mg/dL (65-95) 08/19/20 01:18 Carboxyhemoglobin 1.4 (0.5-1.5) 08/19/20 01:18 FiO2 % 28.0 08/19/20 01:18 Sodium 145 mmol/L (137-145) 08/18/20 21:19 Potassium 5.7 mmol/L (3.6-5.0) H 08/19/20 05:05 Chloride 109.5 mmol/L (98-107) H 08/18/20 21:19 Carbon Dioxide 19 mmol/L (22-30) L 08/18/20 21:19 Anion Gap 22 mmol/L 08/18/20 21:19 BUN 89 mg/dL (9-20) H 08/18/20 21:19 Creatinine 6.8 mg/dL (0.8-1.3) H 08/18/20 21:19 Estimated GFR 10 ml/min 08/18/20 21:19 BUN/Creatinine Ratio 13 % 08/18/20 21:19 Glucose 81 mg/dL (75-100) 08/18/20 21:19 Hemoglobin A1c 4.9 % (4-6) 08/18/20 21:19 Calcium 7.5 mg/dL (8.4-10.2) L 08/18/20 21:19 Phosphorus 5.20 mg/dL (2.5-4.5) H 08/18/20 21:19 Magnesium 1.80 mg/dL (1.7-2.3) 08/18/20 21:19 Total Bilirubin 0.20 mg/dL (0.1-1.2) 08/18/20 21:19 AST 13 units/L (5-40) 08/18/20 21:19 ALT 10 units/L (7-56) 08/18/20 21:19 Alkaline Phosphatase 75 units/L (35-129) 08/18/20 21:19 Troponin T 0.043 ng/mL (0.00-0.029) H 08/18/20 22:47 NT-Pro-B Natriuret Pep 12134 pg/mL (0-900) H 08/18/20 21:19 Total Protein 6.9 g/dL (6.3-8.2) 08/18/20 21:19 Albumin 3.8 g/dL (3.9-5) L 08/18/20 21:19 Albumin/Globulin Ratio 1.2 % 08/18/20 21:19 Triglycerides 46 mg/dL (2-149) 08/18/20 21:19 Cholesterol 103 mg/dL (50-199) 08/18/20 21:19 LDL Cholesterol Direct 62 mg/dL (50-130) 08/18/20 21:19 HDL Cholesterol 44 mg/dL (40-59) 08/18/20 21:19 Cholesterol/HDL Ratio 2.34 % 08/18/20 21:19 Arterial Blood Glucose 90 mg/dL (65-95) 08/19/20 01:18 Arterial Blood Ionized Calcium 3.9 mg/dL (4.6-5.3) L 08/19/20 01:18 Blood Type O POSITIVE 08/18/20 22:47 Antibody Screen Negative 08/18/20 22:47 Crossmatch See Detail 08/18/20 22:47 Marrufo/IV: Voiding Method Condom Catheter Active Medications - Current Medications Current Medications: Generic Name Dose Route Start Last Admin Trade Name Freq PRN Reason Stop Dose Admin Acetaminophen 650 mg 08/18/20 23:24 Acetaminophen 325 Mg Tab PO Q4H PRN Pain MILD(1-3)/Fever >100.5/LIRA Albuterol 2.5 mg 08/18/20 23:24 Albuterol 2.5 Mg/3 Ml Nebu IH Q3HRT PRN Shortness Of Breath Aspirin 81 mg 08/19/20 10:00 Aspirin 81 Mg Tab Chew PO QDAY [facility] Atorvastatin Calcium 40 mg 08/19/20 22:00 Atorvastatin 40 Mg Tab PO QHS [facility] Dextrose 50 ml 08/18/20 23:24 Dextrose 50% In Water (25gm) 50 Ml Syringe IV Q30MIN PRN Hypoglycemia Protocol Docusate Sodium 100 mg 08/19/20 10:00 Docusate Sodium 100 Mg Cap PO BID [facility] Famotidine 20 mg 08/19/20 10:00 Famotidine 20 Mg Tab PO DAILY [facility] Folic Acid 1 mg 08/19/20 10:00 Folic Acid 1 Mg Tab PO QDAY [facility] Furosemide 80 mg 08/19/20 07:30 Furosemide 40 Mg/4 Ml Inj IV 08/19/20 11:30 ONCE [facility] Insulin Human Lispro 0 unit 08/19/20 07:30 Insulin Lispro 100 Unit/Ml SUB-Q ACHS [facility] Protocol Multivitamins 1 each 08/19/20 10:00 Multivitamins ,Therapeutic Tab PO QDAY [facility] Nicotine 14 mg 08/19/20 10:00 Nicotine 14 Mg/24 Hr Patch TD QDAY [facility] Nifedipine 30 mg 08/19/20 10:00 Nifedipine Xl 30 Mg Tab PO QDAY [facility] Nitroglycerin 0.4 mg 08/18/20 23:24 Nitroglycerin 0.4 Mg Tab Subl SL .Q5MIN PRN Chest Pain Ondansetron HCl 4 mg 08/18/20 23:24 Ondansetron 4 Mg/2 Ml Inj IV Q6H PRN Nausea And Vomiting Sodium Chloride 10 ml 08/19/20 10:00 Sodium Chloride 0.9% 10 Ml Flush Syringe IV BID MICHA Sodium Chloride 10 ml 08/18/20 23:24 Sodium Chloride 0.9% 10 Ml Flush Syringe IV PRN PRN LINE FLUSH Sodium Polystyrene Sulfonate 30 gm 08/19/20 08:00 Sodium Polystyrene 15 Gm/60 Ml Oral Liqd PO 08/19/20 12:00 ONCE MICHA
[2020-08-19] MEDS: NICOTINE 14 MG/24 HR PATCH TD SCH (09:39)
[2020-08-19] MEDS: FAMOTIDINE 20 MG TAB PO SCH (09:41)
[2020-08-19] MEDS: DOCUSATE SODIUM 100 MG CAP PO SCH ×2 (09:41→21:13)
[2020-08-19] MEDS: ASPIRIN 81 MG TAB CHEW PO SCH (09:41)
[2020-08-19] MEDS: MULTIVITAMINS ,THERAPEUTIC TAB PO SCH (09:41)
[2020-08-19] MEDS: FOLIC ACID 1 MG TAB PO SCH (09:41)
[2020-08-19] MEDS: NIFEdipine XL 30 MG TAB PO SCH (09:41)
[2020-08-19] MEDS ORDERED: SODIUM CHLORIDE 0.9% 100 ML IV PRN (10:39)
[2020-08-19 10:44] LABS: Hematocrit 23.5 % (35.5-45.6)
[2020-08-19 12:10] LABS: Hepatitis B Surface Antigen Non-Reactive (Negative); Hepatitis C Virus Antibody Non-Reactive (NonReactive)
[2020-08-19] MEDS ORDERED: fentaNYL 100 MCG/2 ML INJ ONE (12:12)
[2020-08-19] MEDS ORDERED: SODIUM CHLORIDE 0.9% 250ML 250 ML ONE (12:12)
[2020-08-19] MEDS ORDERED: HEPARIN/NS 5000 UNIT/500ML 500 ML IR ONE (12:12)
[2020-08-19] MEDS ORDERED: MIDAZOLAM 2 MG/2 ML INJ ONE (12:12)
[2020-08-19] MEDS ORDERED: LIDOCAINE (2%) 20 MG/1 ML VIAL 20 ML MDV INFILTRATI ONE (12:15)
--- NOTE | 2020-08-19 12:18 | Consultation ---
<YAA ELIAS - Last Filed: 08/19/20 12:41> History of Present Illness Consult date: 08/19/20 Consult reason: congestive heart failure, elevated troponin History of present illness: 74-year old male with chronic kidney disease, referred to the ED by his [employer] for abnormal labs. Initial lab done in the emergency department shows a potassium at 5.4 with a creatinine 6.8. Patient is not on dialysis. Nephrology evaluation is pending. A cardiac consultation was requested for elevated troponin measurements. Patient denies chest pain, denies unusual shortness of breath, and denies palpitations. Chest x-ray suggestive of bilateral perihilar opacities and interstitial edema. An ECG is sinus rhythm with LVH of repolarization abnormalities. Patient has no prior cardiac history. He has had extensive previous cardiac work-up in this hospital including a cardiac catheterization in 2013 that reported angiographically normal coronary arteries. A follow-up thallium stress test done a year ago was normal. He has had serial left ventricular function assessment, with the most recent echocardiogram was normal ejection fraction 65%. Past History Past Medical History: arthritis, diabetes, hypertension, renal failure (CKD 4), stroke (With left-sided residual deficits), other (TB exposure 40yrs ago, 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 Noncompliant with medications, ) Past Surgical History: Other ([facility] 2013, Right shoulder surgery) Social history: single, lives with family (Sister), smoking, full code. denies: alcohol abuse, prescription drug abuse, IV drug use Family history: hypertension Medications and Allergies Allergies Allergy/AdvReac Type Severity Reaction Status Date / Time Beta-Blockers AdvReac Anaphylaxis Verified 08/19/20 00:37 (Beta-Adrenergic Bloc Home Medications Medication Instructions Recorded Confirmed Last Taken Type Aspirin [Aspirin BABY CHEW TAB] 81 mg PO QDAY #30 tab.chew 01/08/20 08/19/20 Unknown Rx Acetaminophen [Acetaminophen TAB] 500 mg PO Q8HR PRN 08/19/20 08/19/20 Unknown History AtorvaSTATin [Lipitor] 40 mg PO QHS #30 tablet 08/25/20 Unknown Rx Famotidine [Pepcid] 20 mg PO DAILY #30 tablet 08/25/20 Unknown Rx Folic Acid [Folvite] 1 mg PO QDAY #30 tablet 08/25/20 Unknown Rx Furosemide [Lasix TAB] 40 mg PO QDAY #30 tablet 08/25/20 Unknown Rx Multivitamin Tab [Multiple Vitamin 1 each PO QDAY #30 tablet 08/25/20 Unknown Rx TAB (Theragran)] NIFEdipine XL [Procardia Xl] 30 mg PO BID #60 tablet 08/25/20 Unknown Rx Nicotine [Habitrol] 14 mg TD QDAY #30 patch 08/25/20 Unknown Rx Sodium Bicarbonate 650 mg PO TID #90 tablet 08/25/20 Unknown Rx Active Meds: Active Medications Acetaminophen (Acetaminophen 325 Mg Tab) 650 mg PO Q4H PRN PRN Reason: Pain MILD(1-3)/Fever >100.5/LIRA Albuterol (Albuterol 2.5 Mg/3 Ml Nebu) 2.5 mg IH Q3HRT PRN PRN Reason: Shortness Of Breath Aspirin (Aspirin 81 Mg Tab Chew) 81 mg PO QDAY [facility] Last Admin: 08/19/20 09:41 Dose: 81 mg Documented by: Atorvastatin Calcium (Atorvastatin 40 Mg Tab) 40 mg PO QHS [facility] Dextrose (Dextrose 50% In Water (25gm) 50 Ml Syringe) 50 ml IV Q30MIN PRN; Protocol PRN Reason: Hypoglycemia Docusate Sodium (Docusate Sodium 100 Mg Cap) 100 mg PO BID [facility] Last Admin: 08/19/20 09:41 Dose: 100 mg Documented by: Famotidine (Famotidine 20 Mg Tab) 20 mg PO DAILY [facility] Last Admin: 08/19/20 09:41 Dose: 20 mg Documented by: Folic Acid (Folic Acid 1 Mg Tab) 1 mg PO QDAY [facility] Last Admin: 08/19/20 09:41 Dose: 1 mg Documented by: Sodium Chloride (Nacl 0.9%) 100 mls @ 999 mls/hr IV ERICH PRN PRN Reason: Hypotension Insulin Human Lispro (Insulin Lispro 100 Unit/Ml) 0 unit SUB-Q ACHS [facility]; Protocol Last Admin: 08/19/20 08:00 Dose: Not Given Documented by: Multivitamins (Multivitamins ,Therapeutic Tab) 1 each PO QDAY [facility] Last Admin: 08/19/20 09:41 Dose: 1 each Documented by: Nicotine (Nicotine 14 Mg/24 Hr Patch) 14 mg TD QDAY [facility] Last Admin: 08/19/20 09:39 Dose: 14 mg Documented by: Nifedipine (Nifedipine Xl 30 Mg Tab) 30 mg PO QDAY [facility] Last Admin: 08/19/20 09:41 Dose: 30 mg Documented by: Nitroglycerin (Nitroglycerin 0.4 Mg Tab Subl) 0.4 mg SL .Q5MIN PRN PRN Reason: Chest Pain Ondansetron HCl (Ondansetron 4 Mg/2 Ml Inj) 4 mg IV Q6H PRN PRN Reason: Nausea And Vomiting Sodium Chloride (Sodium Chloride 0.9% 10 Ml Flush Syringe) 10 ml IV BID [facility] Last Admin: 08/19/20 09:41 Dose: 10 ml Documented by: Sodium Chloride (Sodium Chloride 0.9% 10 Ml Flush Syringe) 10 ml IV PRN PRN PRN Reason: LINE FLUSH Review of Systems Cardiovascular: no chest pain, no palpitations, no edema, no shortness of breath Physical Examination Vital Signs Pulse 60 08/18/20 17:34 General appearance: no acute distress HEENT: Positive: PERRL Neck: Positive: trachea midline Cardiac: Positive: Reg Rate and Rhythm Lungs: Positive: Decreased Breath Sounds Neuro: Positive: Grossly Intact Results 08/19/20 10:28 08/19/20 05:05 Cardiac Enzymes 08/18/20 Range/Units 21:19 AST 13 (5-40) units/L Lipids 08/18/20 Range/Units 21:19 Triglycerides 46 (2-149) mg/dL Cholesterol 103 (50-199) mg/dL HDL Cholesterol 44 (40-59) mg/dL Cholesterol/HDL Ratio 2.34 % CBC 08/18/20 08/19/20 Range/Units 21:19 10:28 WBC 4.7 (4.5-11.0) K/mm3 RBC 2.29 L (3.65-5.03) M/mm3 Hgb 6.8 L 8.0 L (11.8-15.2) gm/dl Hct 20.3 L 23.5 L (35.5-45.6) % Plt Count 257 (140-440) K/mm3 Lymph # (Auto) 1.1 L (1.2-5.4) K/mm3 [place] # (Auto) 0.4 (0.0-0.8) K/mm3 Eos # (Auto) 0.4 (0.0-0.4) K/mm3 Baso # (Auto) 0.1 (0.0-0.1) K/mm3 Comprehensive Metabolic Panel 08/18/20 08/19/20 Range/Units 21:19 05:05 Sodium 145 (137-145) mmol/L Potassium 5.4 H 5.7 H (3.6-5.0) mmol/L Chloride 109.5 H (98-107) mmol/L Carbon Dioxide 19 L (22-30) mmol/L BUN 89 H (9-20) mg/dL Creatinine 6.8 H (0.8-1.3) mg/dL Glucose 81 (75-100) mg/dL Calcium 7.5 L (8.4-10.2) mg/dL AST 13 (5-40) units/L ALT 10 (7-56) units/L Alkaline Phosphatase 75 (35-129) units/L Total Protein 6.9 (6.3-8.2) g/dL Albumin 3.8 L (3.9-5) g/dL Assessment and Plan Elevated troponin s/t CKD pt denies chest pain Volume overload Chronic kidney disease Anemia Hypertension Cardiac tests: No ischemia by MPI 03/2019. Normal LVEF, 65% by echo 10/2018. Normal coronaries by [facility] in 2013. Conservative cardiac management. <TIO GOOD - Last Filed: 08/25/20 23:30> History of Present Illness History of present illness: I SAW THIS PT & AGREE WITH THE Dx & Tx PLAN. Physical Examination Vital Signs Pulse 60 08/18/20 17:34 Results 08/21/20 05:06 08/23/20 06:10
[2020-08-19] MEDS: HEPARIN 10,000 UNITS/10 ML VIAL ONE ×3 (12:31→19:23)
--- NOTE | 2020-08-19 12:47 | Operative Report ---
Operative Report Operative Report: Exam: Ultrasound and fluoroscopic guided placement of tunneled hemodialysis catheter Clinical indication: Patient with a history of end-stage renal disease now requiring dialysis initiation for long-term placement Date: 08/19/2020 Procedure: Following an explanation of the risks, benefits and alternatives; written informed consent was obtained. The patient was brought to the angiographic suite and placed in supine position on the examination table. Initial ultrasound evaluation of the neck demonstrated a patent right internal jugular vein. The patient's right neck and chest wall were prepped and draped in the usual sterile fashion. 1% lidocaine was used for anesthesia. Under ultrasound guidance, the right internal jugular vein was cannulated with a 7 cm 18-gauge needle. A 0.035 guidewire was advanced centrally under fluoroscopy. The needle removed. An appropriate catheter exit site was chosen along the lateral right chest wall. 1% lidocaine was used for anesthesia at the catheter exit site and along the tunnel tract. A Bard 23 cm glidepath tunneled hemodialysis catheter was then t unneled antegrade from the catheter exit site to the venotomy site. Following serial dilation over the guidewire under fluoroscopy, a 16 Sami peel-away sheath was advanced over the guidewire under fluoroscopy. The trocar and guidewire were removed. The catheter was inserted through the peel-away sheath and the peel-away sheath removed. The catheter tip was positioned in the proximal right atrium. Both ports flushed and aspirated well and were then locked with appropriate volumes of heparin. The venotomy was closed using 4-0 Vicryl suture and Dermabond. The catheter exit site was approximated using 2-0 Ethilon which was also used to stabilize the catheter. Sterile dressings were then applied. The patient tolerated the procedure well. There were no immediate postprocedure complications. Conscious sedation was performed under the guidance of radiologic nursing. Continuous cardiopulmonary monitoring was utilized. Impression: Ultrasound and fluoroscopic guided placement of a 23 cm glidepath tunneled hemodialysis catheter via the right internal jugular vein.
--- NOTE | 2020-08-19 14:32 | Event Note ---
Date: 08/19/20 Patient's primary care physician Dr. Meli Reynoso wanted to talk about the patient, I called him at [phone] and discussed in detail patient's condition, tests and reports, treatment plan as well as consultants recommendations. He wanted to speak to the die cast operator . I informed who agreed to call Dr. Mock.
[2020-08-19] MEDS: EPOETIN ALFA-EPBX 20,000 UNIT/1 ML VIAL SUB-Q PRN (17:20)
[2020-08-19] MEDS: ACETAMINOPHEN 325 MG TAB PO PRN (21:13)
[2020-08-20] MEDS: ACETAMINOPHEN 325 MG TAB PO PRN ×2 (01:20→05:09)
[2020-08-20 07:16] LABS: Basophils # (Auto) 0.1 K/mm3 (0.0-0.1); Basophils % (Auto) 1.1 % (0.0-1.8); Eosinophils # (Auto) 0.3 K/mm3 (0.0-0.4); Eosinophils % (Auto) 6.8 % (0.0-4.3); Hematocrit 23.9 % (35.5-45.6); Lymphocytes % (Auto) 20.1 % (13.4-35.0); Mean Corpuscular HGB Conc 34 % (32-34); Mean Corpuscular Volume 89 fl (84-94); Monocytes # (Auto) 0.5 K/mm3 (0.0-0.8); Monocytes % (Auto) 9.9 % (0.0-7.3); Platelet Count 231 K/mm3 (140-440); Red Blood Count 2.69 M/mm3 (3.65-5.03); Red Cell Distribution Width 14.9 % (13.2-15.2)
[2020-08-20 07:32] LABS: Calcium 7.3 mg/dL (8.4-10.2)
[2020-08-20] MEDS: INSULIN LISPRO 100 UNIT/ML SUB-Q SCH ×4 (08:27→22:55)
[2020-08-20] MEDS: FOLIC ACID 1 MG TAB PO SCH (09:04)
[2020-08-20] MEDS: ASPIRIN 81 MG TAB CHEW PO SCH (09:04)
[2020-08-20] MEDS: DOCUSATE SODIUM 100 MG CAP PO SCH ×2 (09:04→22:55)
[2020-08-20] MEDS: NICOTINE 14 MG/24 HR PATCH TD SCH (09:04)
[2020-08-20] MEDS: FAMOTIDINE 20 MG TAB PO SCH (09:04)
[2020-08-20] MEDS: NIFEdipine XL 30 MG TAB PO SCH ×3 (09:04→23:09)
[2020-08-20] MEDS: MULTIVITAMINS ,THERAPEUTIC TAB PO SCH (09:04)
--- NOTE | 2020-08-20 09:32 | Progress Note ---
Assessment and Plan Assessment and plan: --Hypertensive urgency present on admission Moderate control ,Continue current antihypertensives and as needed IV hydralazine --chronic kidney disease changed to ESRD Nephrology initiated hemodialysis Patient received HD yesterday Hemodialysis per schedule/as needed Case management to set up outpatient HD placement If nephrology decides long-term HD --Acute hyperkalemia Resolved after HD yesterday Potassium levels within normal limits --Fluid overload; Secondary to ESRD Patient received HD yesterday Symptoms improved --Anemia of chronic kidney disease; Hb 6.8, received 1 unit of PRBC, Hb improved to 8.0 Closely monitor H&H, transfuse additional PRBC as needed --Acute Exacerbation CHF/fluid overload due to ESRD Continue antifailure medications, nephrology initiating HD EF 65% seen on Echo 10/2018 -CXR most consistent with congestive heart failure and interval development of bilateral interstitial edema -Patient has had multiple MPI stress testing, most recent was 03/2019 which was negative for ischemia -Cardiology evaluation noted and appreciated No plans of ischemia work-up, medical management --Acute hypoxic respiratory failure Due to fluid overload, acute on chronic congestive heart failure Treat the underlying cause, symptoms significantly improved --Type II DM Accu-Chek sliding scale coverage ADA diet Insulin as needed, HbA1c 4.9 --Tobacco abuse Smoking cessation counseling Advised nicotine patch as needed --DVT prophylaxis; Heparin renal dose We will closely monitor the patient and adjust management as needed Plan of care reviewed with the patient and his nurse I also discussed with home service director Dr. Ann Discussed with [facility] primary care physician Dr. Mock Advance Directives: No VTE prophylaxis?: Chemical, Mechanical Plan of care discussed with patient/family: Yes Brief history and hospital course; Patient was admitted with acute hypoxic respiratory failure due to fluid o verload due to chronic kidney disease Nephrology evaluated, initiated hemodialysis after HD catheter placement, patient symptoms significantly improved Cardiology evaluated the patient, no ischemia work-up planned, medical management. If nephrology plans long-term HD Case management need to set up outpatient HD placement 08/20/2020; Patient feels better, received HD yesterday Nephrology cardiology following, blood pressures fluctuating Medications optimized I discussed with [facility] PMD Dr. Mock[on 11/19/2020] History Interval history: I seen and examined the patient at the bedside in [facility] this morning Patient's chart and medications reviewed Patient has uncontrolled blood pressures Received hemodialysis yesterday Feels better no new complaints Vital signs noted Hospitalist Physical - Constitutional Vitals: Temp Pulse Resp BP Pulse Ox 99.4 F 56 L 21 193/94 96 08/20/20 09:00 08/20/20 09:15 08/20/20 09:00 08/20/20 09:15 08/20/20 09:00 General appearance: Present: no acute distress, well-nourished - EENT Eyes: Present: PERRL, EOM intact - Neck Neck: Present: supple, normal ROM - Respiratory Respiratory effort: normal Respiratory: bilateral: diminished, negative: rales, rhonchi, wheezing - Cardiovascular Rhythm: regular Heart Sounds: Present: S1 & S2 - Extremities Extremities: no ischemia, No edema - Abdominal General gastrointestinal: soft, non-tender, non-distended, normal bowel sounds - Integumentary Integumentary: Present: clear, warm - Psychiatric Psychiatric: appropriate mood/affect, cooperative - Neurologic Neurologic: CNII-XII intact, moves all extremities HEART Score - HEART Score Troponin: Troponin T 0.043 ng/mL (0.00-0.029) H 08/18/20 22:47 Results - Labs CBC & Chem 7: 08/20/20 07:05 08/20/20 07:05 Labs: Laboratory Last Values WBC 4.9 K/mm3 (4.5-11.0) 08/20/20 07:05 RBC 2.69 M/mm3 (3.65-5.03) L 08/20/20 07:05 Hgb 8.0 gm/dl (11.8-15.2) L 08/20/20 07:05 Hct 23.9 % (35.5-45.6) L 08/20/20 07:05 MCV 89 fl (84-94) 08/20/20 07:05 MCH 30 pg (28-32) 08/20/20 07:05 MCHC 34 % (32-34) 08/20/20 07:05 RDW 14.9 % (13.2-15.2) 08/20/20 07:05 Plt Count 231 K/mm3 (140-440) 08/20/20 07:05 Lymph % (Auto) 20.1 % (13.4-35.0) 08/20/20 07:05 [place] % (Auto) 9.9 % (0.0-7.3) H 08/20/20 07:05 Eos % (Auto) 6.8 % (0.0-4.3) H 08/20/20 07:05 Baso % (Auto) 1.1 % (0.0-1.8) 08/20/20 07:05 Lymph # (Auto) 1.0 K/mm3 (1.2-5.4) L 08/20/20 07:05 [place] # (Auto) 0.5 K/mm3 (0.0-0.8) 08/20/20 07:05 Eos # (Auto) 0.3 K/mm3 (0.0-0.4) 08/20/20 07:05 Baso # (Auto) 0.1 K/mm3 (0.0-0.1) 08/20/20 07:05 Seg Neutrophils % 62.1 % (40.0-70.0) 08/20/20 07:05 Seg Neutrophils # 3.1 K/mm3 (1.8-7.7) 08/20/20 07:05 ABG pH 7.382 (7.320-7.450) 08/19/20 01:18 POC ABG pCO2 27.8 mmHg (32.0-48.0) L 08/19/20 01:18 POC ABG pO2 114.3 mmHg (83-108) H 08/19/20 01:18 POC ABG HCO3 16.2 08/19/20 01:18 ABG O2 Saturation 98.7 (0-100) 08/19/20 01:18 POC ABG Base Excess -8.1 08/19/20 01:18 ABG Hemoglobin 7.2 (12.0-17.5) L 08/19/20 01:18 ABG Oxyhemoglobin 97.0 (94-98) 08/19/20 01:18 ABG Methemoglobin 0.3 (0.0-1.5) 08/19/20 01:18 ABG Sodium 144.1 mmol/L (136.0-145.0) 08/19/20 01:18 ABG Potassium 5.4 mmol/L (3.40-4.50) H 08/19/20 01:18 ABG Chloride 113.0 mmol/L (98-107) H 08/19/20 01:18 ABG Glucose 90 mg/dL (65-95) 08/19/20 01:18 Carboxyhemoglobin 1.4 (0.5-1.5) 08/19/20 01:18 FiO2 % 28.0 08/19/20 01:18 Sodium 141 mmol/L (137-145) 08/20/20 07:05 Potassium 4.6 mmol/L (3.6-5.0) 08/20/20 07:05 Chloride 105.2 mmol/L (98-107) 08/20/20 07:05 Carbon Dioxide 26 mmol/L (22-30) D 08/20/20 07:05 Anion Gap 14 mmol/L 08/20/20 07:05 BUN 62 mg/dL (9-20) H 08/20/20 07:05 Creatinine 5.3 mg/dL (0.8-1.3) H 08/20/20 07:05 Estimated GFR 13 ml/min 08/20/20 07:05 BUN/Creatinine Ratio 12 % 08/20/20 07:05 Glucose 118 mg/dL (75-100) H 08/20/20 07:05 POC Glucose 114 mg/dL (70-105) H 08/20/20 07:38 Hemoglobin A1c 4.9 % (4-6) 08/18/20 21:19 Calcium 7.3 mg/dL (8.4-10.2) L 08/20/20 07:05 Phosphorus 5.20 mg/dL (2.5-4.5) H 08/18/20 21:19 Magnesium 1.80 mg/dL (1.7-2.3) 08/18/20 21:19 Total Bilirubin 0.20 mg/dL (0.1-1.2) 08/18/20 21:19 AST 13 units/L (5-40) 08/18/20 21:19 ALT 10 units/L (7-56) 08/18/20 21:19 Alkaline Phosphatase 75 units/L (35-129) 08/18/20 21:19 Troponin T 0.043 ng/mL (0.00-0.029) H 08/18/20 22:47 NT-Pro-B Natriuret Pep 86822 pg/mL (0-900) H 08/18/20 21:19 Total Protein 6.9 g/dL (6.3-8.2) 08/18/20 21:19 Albumin 3.8 g/dL (3.9-5) L 08/18/20 21:19 Albumin/Globulin Ratio 1.2 % 08/18/20 21:19 Triglycerides 46 mg/dL (2-149) 08/18/20 21:19 Cholesterol 103 mg/dL (50-199) 08/18/20 21:19 LDL Cholesterol Direct 62 mg/dL (50-130) 08/18/20 21:19 HDL Cholesterol 44 mg/dL (40-59) 08/18/20 21:19 Cholesterol/HDL Ratio 2.34 % 08/18/20 21:19 Arterial Blood Glucose 90 mg/dL (65-95) 08/19/20 01:18 Arterial Blood Ionized Calcium 3.9 mg/dL (4.6-5.3) L 08/19/20 01:18 Hepatitis A IgM Ab Non-reactive (NonReactive) 08/19/20 11:37 Hep Bs Antigen Non-reactive (Negative) 08/19/20 11:37 Hep B Core IgM Ab Non-reactive (NonReactive) 08/19/20 11:37 Hepatitis C Antibody Non-reactive (NonReactive) 08/19/20 11:37 Blood Type O POSITIVE 08/18/20 22:47 Antibody Screen Negative 08/18/20 22:47 Crossmatch See Detail 08/18/20 22:47 Marrufo/IV: Voiding Method Condom Catheter Active Medications - Current Medications Current Medications: Generic Name Dose Route Start Last Admin Trade Name Freddieq PRN Reason Stop Dose Admin Acetaminophen 650 mg 08/18/20 23:24 08/20/20 05:09 Acetaminophen 325 Mg Tab PO 650 mg Q4H PRN Administration Pain MILD(1-3)/Fever >100.5/LIRA Albuterol 2.5 mg 08/18/20 23:24 Albuterol 2.5 Mg/3 Ml Nebu IH Q3HRT PRN Shortness Of Breath Aspirin 81 mg 08/19/20 10:00 08/20/20 09:04 Aspirin 81 Mg Tab Chew PO 81 mg QDAY MICHA Administration Atorvastatin Calcium 40 mg 08/19/20 22:00 08/19/20 21:13 Atorvastatin 40 Mg Tab PO 40 mg QHS MICHA Administration Dextrose 50 ml 08/18/20 23:24 Dextrose 50% In Water (25gm) 50 Ml Syringe IV Q30MIN PRN Hypoglycemia Protocol Docusate Sodium 100 mg 08/19/20 10:00 08/20/20 09:04 Docusate Sodium 100 Mg Cap PO 100 mg BID MICHA Administration Famotidine 20 mg 08/19/20 10:00 08/20/20 09:04 Famotidine 20 Mg Tab PO 20 mg DAILY MICHA Administration Folic Acid 1 mg 08/19/20 10:00 08/20/20 09:04 Folic Acid 1 Mg Tab PO 1 mg QDAY MICHA Administration Sodium Chloride 100 mls @ 999 mls/hr 08/19/20 10:39 Nacl 0.9% IV ERICH PRN Hypotension Insulin Human Lispro 0 unit 08/19/20 07:30 08/20/20 08:27 Insulin Lispro 100 Unit/Ml SUB-Q Not Given ACHS [facility] Protocol Multivitamins 1 each 08/19/20 10:00 08/20/20 09:04 Multivitamins ,Therapeutic Tab PO 1 each QDAY MICHA Administration Nicotine 14 mg 08/19/20 10:00 08/20/20 09:04 Nicotine 14 Mg/24 Hr Patch TD 14 mg QDAY MICHA Administration Nifedipine 30 mg 08/19/20 10:00 08/20/20 09:04 Nifedipine Xl 30 Mg Tab PO 30 mg QDAY MICHA Administration Nitroglycerin 0.4 mg 08/18/20 23:24 Nitroglycerin 0.4 Mg Tab Subl SL .Q5MIN PRN Chest Pain Ondansetron HCl 4 mg 08/18/20 23:24 Ondansetron 4 Mg/2 Ml Inj IV Q6H PRN Nausea And Vomiting Sodium Chloride 10 ml 08/19/20 10:00 08/20/20 09:08 Sodium Chloride 0.9% 10 Ml Flush Syringe IV 10 ml BID MICHA Administration Sodium Chloride 10 ml 08/18/20 23:24 Sodium Chloride 0.9% 10 Ml Flush Syringe IV PRN PRN LINE FLUSH Nutrition/Malnutrition Assess - Dietary Evaluation Nutrition/Malnutrition Findings: Nutrition Notes Start: 08/19/20 11:55 Freq: Status: Active Protocol: Document 08/19/20 11:55 (Rec: 08/19/20 12:00 MK [id number]) Nutrition Notes Need for Assessment generated from: MD Order,animal treatment investigator Initial or Follow up Assessment Current Diagnosis CKD (stage V CKD),Diabetes, Hypertension,Heart Failure, Stroke Current Diet NPO, ONS Labs/Tests K 5.7 Pertinent Medications MVI Kionex Height 5 ft 6 in Weight 73.2 kg [place] Body Weight (kg) 64.54 BMI 26.0 Intake Prior to Admission Good Weight Status Appropriate Subjective/Other Information MD order for ONS. RN screen for chewing difficulty. Pt reports no appetite changes or wt loss. He does not want texture modified diet. Pt would a Nepro ONS daily. Burn Absent Trauma Absent GI Symptoms None Minimum of two criteria No Muscle Mass Mild Depletion (non-severe) #1 Nutrition Diagnosis No nutrition diagnosis at this time Is patient on ventilator? No Is Patient Ambulatory and/or Out of Bed No REE-([facility]-confined to bed) [phone] Calculation Used for Recommendations [facility] Additional Notes Protein: (0.8-0.9g/kg) 59-66g Fluid: 1 ml/kcal or per Nutrition Intervention Change Diet Order: Advance as able Add Supplement/Snack (indicate name/kcal Nepro daily /protein ) Provides kCal: 425 Provides Protein (gm) 19 Goal #1 Meet at least 75% of protein and energy needs via PO and ONS intakes Follow-Up By: 08/23/20 Additional Comments FU for intakes and ONS tolerance
[2020-08-20] MEDS ORDERED: hydrALAZINE 20 MG/1 ML INJ IV ONE (10:00)
[2020-08-20] MEDS: FUROSEMIDE 40 MG TAB PO SCH (10:02)
[2020-08-20] MEDS: EPOETIN ALFA-EPBX 20,000 UNIT/1 ML VIAL SUB-Q PRN (10:20)
--- NOTE | 2020-08-20 11:34 | Progress Note ---
Assessment and Plan Elevated troponin s/t CKD pt denies chest pain Volume overload Chronic kidney disease with progression to ESRD, awaits hemodialysis. Anemia Hypertension Cardiac tests: No ischemia by MPI 03/2019. Normal LVEF, 65% by echo 10/2018. Normal coronaries by [facility] in 2013. Conservative cardiac management. Will follow intermittently. Subjective Date of service: 08/20/20 Interval history: Patient is resting in bed and appears comfortable. He has no cardiac complaints. CKD has progressed to ESRD, awaits hemodialysis. Objective Vital Signs Temp Pulse Pulse Resp Resp BP Pulse Ox 08/20/20 11:15 49 L 123/42 08/20/20 11:00 57 L 17 145/43 98 08/20/20 10:45 57 L 158/49 08/20/20 10:30 60 171/53 08/20/20 10:15 58 L 183/58 08/20/20 10:00 55 L 18 20 167/61 97 08/20/20 09:45 54 L 191/67 08/20/20 09:30 53 L 192/62 08/20/20 09:15 56 L 193/94 08/20/20 09:00 99.4 F 61 21 189/71 98 08/20/20 08:00 60 59 L 22 185/63 99 08/20/20 07:00 98.8 F 60 22 174/58 97 08/20/20 06:09 20 08/20/20 06:00 63 16 171/64 98 08/20/20 05:09 16 08/20/20 05:00 61 21 164/60 99 08/20/20 04:30 59 L 08/20/20 04:00 99.4 F 60 59 L 17 158/63 98 08/20/20 03:00 63 19 161/53 99 08/20/20 02:20 20 08/20/20 02:00 64 20 165/55 98 08/20/20 01:44 61 14 157/61 100 08/20/20 01:43 100 08/20/20 01:20 16 08/20/20 01:00 60 19 157/61 100 08/20/20 00:30 59 L 08/20/20 00:00 60 60 16 146/56 99 08/19/20 23:31 98.2 F 08/19/20 23:00 64 17 163/57 97 08/19/20 22:00 68 17 180/66 99 08/19/20 21:13 14 08/19/20 21:10 20 08/19/20 21:00 63 18 157/61 94 08/19/20 20:00 98.1 F 63 20 170/60 97 08/19/20 19:40 69 08/19/20 19:00 63 16 161/59 98 08/19/20 18:26 60 12 167/65 98 08/19/20 18:00 61 11 L 157/55 99 08/19/20 17:45 97.9 F 58 L 15 165/60 08/19/20 17:40 54 L 144/62 08/19/20 17:30 55 L 146/65 08/19/20 17:15 55 L 159/60 08/19/20 17:00 57 L 18 147/62 98 08/19/20 16:45 56 L 151/61 08/19/20 16:30 58 L 162/64 08/19/20 16:15 56 L 164/67 08/19/20 16:00 97.9 F 59 L 16 175/61 97 08/19/20 15:45 61 179/69 08/19/20 15:40 66 182/72 08/19/20 15:35 98.5 F 62 19 172/65 08/19/20 15:00 64 19 190/75 95 08/19/20 14:00 62 14 190/77 97 08/19/20 13:13 178/66 98 08/19/20 12:00 98.5 F 68 Pulse Ox 08/20/20 11:15 08/20/20 11:00 08/20/20 10:45 08/20/20 10:30 08/20/20 10:15 08/20/20 10:00 08/20/20 09:45 08/20/20 09:30 08/20/20 09:15 08/20/20 09:00 96 08/20/20 08:00 08/20/20 07:00 08/20/20 06:09 08/20/20 06:00 08/20/20 05:09 08/20/20 05:00 08/20/20 04:30 08/20/20 04:00 08/20/20 03:00 08/20/20 02:20 08/20/20 02:00 08/20/20 01:44 08/20/20 01:43 08/20/20 01:20 08/20/20 01:00 08/20/20 00:30 08/20/20 00:00 08/19/20 23:31 08/19/20 23:00 08/19/20 22:00 08/19/20 21:13 08/19/20 21:10 08/19/20 21:00 08/19/20 20:00 08/19/20 19:40 08/19/20 19:00 08/19/20 18:26 08/19/20 18:00 08/19/20 17:45 08/19/20 17:40 08/19/20 17:30 08/19/20 17:15 08/19/20 17:00 08/19/20 16:45 08/19/20 16:30 08/19/20 16:15 08/19/20 16:00 08/19/20 15:45 08/19/20 15:40 08/19/20 15:35 08/19/20 15:00 08/19/20 14:00 08/19/20 13:13 08/19/20 12:00 - Physical Examination General: No Apparent Distress HEENT: Positive: PERRL Neck: Positive: trachea midline Cardiac: Positive: Reg Rate and Rhythm Lungs: Positive: Decreased Breath Sounds Neuro: Positive: Grossly Intact - Labs and Meds CBC 08/20/20 Range/Units 07:05 WBC 4.9 (4.5-11.0) K/mm3 RBC 2.69 L (3.65-5.03) M/mm3 Hgb 8.0 L (11.8-15.2) gm/dl Hct 23.9 L (35.5-45.6) % Plt Count 231 (140-440) K/mm3 Lymph # (Auto) 1.0 L (1.2-5.4) K/mm3 [place] # (Auto) 0.5 (0.0-0.8) K/mm3 Eos # (Auto) 0.3 (0.0-0.4) K/mm3 Baso # (Auto) 0.1 (0.0-0.1) K/mm3 Comprehensive Metabolic Panel 08/20/20 Range/Units 07:05 Sodium 141 (137-145) mmol/L Potassium 4.6 (3.6-5.0) mmol/L Chloride 105.2 (98-107) mmol/L Carbon Dioxide 26 D (22-30) mmol/L BUN 62 H (9-20) mg/dL Creatinine 5.3 H (0.8-1.3) mg/dL Glucose 118 H (75-100) mg/dL Calcium 7.3 L (8.4-10.2) mg/dL
--- NOTE | 2020-08-20 11:49 | Progress Note ---
Assessment and Plan 1. ESRD: CKD has progressed to ESRD/ Patient was admitted with uremic symptoms and elevated creatinine from his baseline. CKD most likely from hypertensive nephropathy. Prior workup include SAHIL, ANCA, GBM Ab, complements, SPEP, UPEP, Hep panel and HIV were negative. [place]:Lambda ratio was elevated. Monitor renal function. Renal prognosis is poor. Avoid nephrotoxic agents. Meds dosage based on GFR. Patient require hemodialysis as CKD progressed to ESRD and presented with uremia, hyperkalemia, metabolic acidosis and volume overload. D/w patient the indications, benefits, risks and alternatives involved in hemodialysis. He voiced understanding and gave verbal consent. Hmeodialysis: 08/19, 08/20. 2. FEN: Hyperkalemia, improved. Metabolic acidosis, s/p HD, monitor. Volume overload, UF with HD. Monitor lytes. 3. Anemia, POA: S/p PRBC. Epogen with HD. 4. Uncontrolled HTN: Continue home meds. UF with HD. BP is better. 5. Decompensated CHF: BP and volume control. EF 65% seen on Echo 10/2018. Strict I/O, fluid restriction, low sodium diet. 6. Acute hypoxic respiratory failure, POA: 2/2 fluid overload. Supplemental O2. UF with HD. 7. Type II DM: Accu-Chek sliding scale coverage ADA diet. 8. Tobacco abuse: Smoking cessation counseling. 9. Medical non-compliance: Counseled. Await outpatient HD chair. Subjective: Pt was seen and examined at the bedside. Examination: General appearance: well-developed, appears stated age, appears emaciated, not in distress HEENT: ATNC, [place], hearing intact, vision intact Neck: neck supple, trachea midline Respiratory: Clear to Auscultation Heart: regular, S1S2, no murmur Gastrointestinal: Soft, normoactive bowel sounds, obese Integumentary: no rash, warm and dry Neurologic: able to move extremities, bilateral claw hand, no asterixis Ext: no edema noted Hemodialysis access: R IJ tunnel catheter Subjective Date of service: 08/20/20 Objective - Vital Signs Vital signs: Vital Signs - 12hr 08/20/20 08/20/20 08/20/20 00:00 00:30 01:00 Temperature Pulse Rate 60 59 L 60 Pulse Rate [ 60 From Monitor] Respiratory 16 19 Rate Respiratory Rate [Neck] Blood Pressure 146/56 157/61 O2 Sat by Pulse 99 100 Oximetry O2 Sat by Pulse Oximetry [ Anterior Bilateral Throughout] 08/20/20 08/20/20 08/20/20 01:20 01:43 01:44 Temperature Pulse Rate 61 Pulse Rate [ From Monitor] Respiratory 16 14 Rate Respiratory Rate [Neck] Blood Pressure 157/61 O2 Sat by Pulse 100 100 Oximetry O2 Sat by Pulse Oximetry [ Anterior Bilateral Throughout] 08/20/20 08/20/20 08/20/20 02:00 02:20 03:00 Temperature Pulse Rate 64 63 Pulse Rate [ From Monitor] Respiratory 20 20 19 Rate Respiratory Rate [Neck] Blood Pressure 165/55 161/53 O2 Sat by Pulse 98 99 Oximetry O2 Sat by Pulse Oximetry [ Anterior Bilateral Throughout] 08/20/20 08/20/20 08/20/20 04:00 04:30 05:00 Temperature 99.4 F Pulse Rate 60 59 L 61 Pulse Rate [ 59 L From Monitor] Respiratory 17 21 Rate Respiratory Rate [Neck] Blood Pressure 158/63 164/60 O2 Sat by Pulse 98 99 Oximetry O2 Sat by Pulse Oximetry [ Anterior Bilateral Throughout] 08/20/20 08/20/20 08/20/20 05:09 06:00 06:09 Temperature Pulse Rate 63 Pulse Rate [ From Monitor] Respiratory 16 16 20 Rate Respiratory Rate [Neck] Blood Pressure 171/64 O2 Sat by Pulse 98 Oximetry O2 Sat by Pulse Oximetry [ Anterior Bilateral Throughout] 08/20/20 08/20/20 08/20/20 07:00 08:00 09:00 Temperature 98.8 F 99.4 F Pulse Rate 60 60 61 Pulse Rate [ 59 L From Monitor] Respiratory 22 22 21 Rate Respiratory Rate [Neck] Blood Pressure 174/58 185/63 189/71 O2 Sat by Pulse 97 99 98 Oximetry O2 Sat by Pulse 96 Oximetry [ Anterior Bilateral Throughout] 08/20/20 08/20/20 08/20/20 09:15 09:30 09:45 Temperature Pulse Rate 56 L 53 L 54 L Pulse Rate [ From Monitor] Respiratory Rate Respiratory Rate [Neck] Blood Pressure 193/94 192/62 191/67 O2 Sat by Pulse Oximetry O2 Sat by Pulse Oximetry [ Anterior Bilateral Throughout] 08/20/20 08/20/20 08/20/20 10:00 10:15 10:30 Temperature Pulse Rate 55 L 58 L 60 Pulse Rate [ From Monitor] Respiratory 18 Rate Respiratory 20 Rate [Neck] Blood Pressure 167/61 183/58 171/53 O2 Sat by Pulse 97 Oximetry O2 Sat by Pulse Oximetry [ Anterior Bilateral Throughout] 08/20/20 08/20/20 08/20/20 10:45 11:00 11:15 Temperature Pulse Rate 57 L 57 L 49 L Pulse Rate [ From Monitor] Respiratory 17 Rate Respiratory Rate [Neck] Blood Pressure 158/49 145/43 123/42 O2 Sat by Pulse 98 Oximetry O2 Sat by Pulse Oximetry [ Anterior Bilateral Throughout] 08/20/20 08/20/20 11:30 11:45 Temperature Pulse Rate 51 L 54 L Pulse Rate [ From Monitor] Respiratory Rate Respiratory Rate [Neck] Blood Pressure 128/46 132/51 O2 Sat by Pulse Oximetry O2 Sat by Pulse Oximetry [ Anterior Bilateral Throughout] - Lab 08/20/20 07:05 08/20/20 07:05 Most recent lab results ABG pH 7.382 (7.320-7.450) 08/19/20 01:18 ABG O2 Saturation 98.7 (0-100) 08/19/20 01:18 Calcium 7.3 mg/dL (8.4-10.2) L 08/20/20 07:05 Phosphorus 5.20 mg/dL (2.5-4.5) H 08/18/20 21:19 Magnesium 1.80 mg/dL (1.7-2.3) 08/18/20 21:19 Medications & Allergies - Medications Allergies/Adverse Reactions: Allergies Beta-Blockers (Beta-Adrenergic Bloc Adverse Reaction (Verified 08/19/20 00:37) Anaphylaxis Home Medications: Home Medications Medication Instructions Recorded Confirmed Last Taken Type Aspirin [Aspirin BABY CHEW TAB] 81 mg PO QDAY #30 tab.chew 01/08/20 08/19/20 Unknown Rx Sodium Bicarbonate 650 mg PO TID #90 tablet 01/08/20 08/19/20 Unknown Rx Acetaminophen [Tylenol] 500 mg PO Q8HR PRN 08/19/20 08/19/20 Unknown History Furosemide [Lasix] 40 mg PO DAILY 08/19/20 08/19/20 Unknown History NIFEdipine [Nifedipine ER] 60 mg PO DAILY 08/19/20 08/19/20 Unknown History Pantoprazole Sodium 40 mg PO DAILY 08/19/20 08/19/20 Unknown History Active Medications: Generic Name Dose Route Start Last Admin Trade Name Freq PRN Reason Stop Dose Admin Acetaminophen 650 mg 08/18/20 23:24 08/20/20 05:09 Acetaminophen 325 Mg Tab PO 650 mg Q4H PRN Administration Pain MILD(1-3)/Fever >100.5/LIRA Albuterol 2.5 mg 08/18/20 23:24 Albuterol 2.5 Mg/3 Ml Nebu IH Q3HRT PRN Shortness Of Breath Aspirin 81 mg 08/19/20 10:00 08/20/20 09:04 Aspirin 81 Mg Tab Chew PO 81 mg QDAY MICAH Administration Atorvastatin Calcium 40 mg 08/19/20 22:00 08/19/20 21:13 Atorvastatin 40 Mg Tab PO 40 mg QHS MICHA Administration Dextrose 50 ml 08/18/20 23:24 Dextrose 50% In Water (25gm) 50 Ml Syringe IV Q30MIN PRN Hypoglycemia Protocol Docusate Sodium 100 mg 08/19/20 10:00 08/20/20 09:04 Docusate Sodium 100 Mg Cap PO 100 mg BID MICHA Administration Famotidine 20 mg 08/19/20 10:00 08/20/20 09:04 Famotidine 20 Mg Tab PO 20 mg DAILY MICHA Administration Folic Acid 1 mg 08/19/20 10:00 08/20/20 09:04 Folic Acid 1 Mg Tab PO 1 mg QDAY MICHA Administration Furosemide 40 mg 08/20/20 10:00 08/20/20 10:02 Furosemide 40 Mg Tab PO 40 mg DAILY MICHA Administration Hydralazine HCl 50 mg 08/20/20 14:00 Hydralazine 25 Mg Tab PO Q8HR MICHA Hydralazine HCl 10 mg 08/20/20 09:36 Hydralazine 20 Mg/1 Ml Inj IV Q4HR PRN Hypertension Sodium Chloride 100 mls @ 999 mls/hr 08/19/20 10:39 Nacl 0.9% IV ERICH PRN Hypotension Insulin Human Lispro 0 unit 08/19/20 07:30 08/20/20 08:27 Insulin Lispro 100 Unit/Ml SUB-Q Not Given ACHS [facility] Protocol Multivitamins 1 each 08/19/20 10:00 08/20/20 09:04 Multivitamins ,Therapeutic Tab PO 1 each QDAY MICHA Administration Nicotine 14 mg 08/19/20 10:00 08/20/20 09:04 Nicotine 14 Mg/24 Hr Patch TD 14 mg QDAY MICHA Administration Nifedipine 30 mg 08/20/20 10:00 08/20/20 10:03 Nifedipine Xl 30 Mg Tab PO Not Given BID MICHA Nitroglycerin 0.4 mg 08/18/20 23:24 Nitroglycerin 0.4 Mg Tab Subl SL .Q5MIN PRN Chest Pain Ondansetron HCl 4 mg 08/18/20 23:24 Ondansetron 4 Mg/2 Ml Inj IV Q6H PRN Nausea And Vomiting Sodium Bicarbonate 650 mg 08/20/20 14:00 Sodium Bicarbonate 650 Mg Tab PO TID MICHA Sodium Chloride 10 ml 08/19/20 10:00 08/20/20 09:08 Sodium Chloride 0.9% 10 Ml Flush Syringe IV 10 ml BID MICHA Administration Sodium Chloride 10 ml 08/18/20 23:24 Sodium Chloride 0.9% 10 Ml Flush Syringe IV PRN PRN LINE FLUSH
[2020-08-20] MEDS: hydrALAZINE 20 MG/1 ML INJ IV PRN (13:45)
[2020-08-20] MEDS: SODIUM BICARBONATE 650 MG TAB PO SCH ×2 (13:45→20:15)
[2020-08-20] MEDS ORDERED: hydrALAZINE 25 MG TAB PO SCH (14:00)
[2020-08-21] MEDS: hydrALAZINE 20 MG/1 ML INJ IV PRN (02:13)
[2020-08-21 05:35] LABS: Hematocrit 27.1 % (35.5-45.6); Hemoglobin 9.1 gm/dl (11.8-15.2)
[2020-08-21 05:52] LABS: Calcium 7.5 mg/dL (8.4-10.2)
[2020-08-21] MEDS: INSULIN LISPRO 100 UNIT/ML SUB-Q SCH ×4 (08:10→21:46)
[2020-08-21] MEDS: SODIUM BICARBONATE 650 MG TAB PO SCH ×3 (08:11→20:14)
[2020-08-21] MEDS: FOLIC ACID 1 MG TAB PO SCH (09:30)
[2020-08-21] MEDS: ASPIRIN 81 MG TAB CHEW PO SCH (09:30)
[2020-08-21] MEDS: NICOTINE 14 MG/24 HR PATCH TD SCH (09:30)
[2020-08-21] MEDS: FUROSEMIDE 40 MG TAB PO SCH (09:30)
[2020-08-21] MEDS: DOCUSATE SODIUM 100 MG CAP PO SCH ×2 (09:31→21:46)
[2020-08-21] MEDS: FAMOTIDINE 20 MG TAB PO SCH (09:31)
[2020-08-21] MEDS: NIFEdipine XL 30 MG TAB PO SCH ×2 (09:31→21:46)
[2020-08-21] MEDS: MULTIVITAMINS ,THERAPEUTIC TAB PO SCH (09:32)
--- NOTE | 2020-08-21 10:06 | Progress Note ---
Assessment and Plan 1. ESRD: CKD has progressed to ESRD/ Patient was admitted with uremic symptoms and elevated creatinine from his baseline. CKD most likely from hypertensive nephropathy. Prior workup include SAHIL, ANCA, GBM Ab, complements, SPEP, UPEP, Hep panel and HIV were negative. [place]:Lambda ratio was elevated. Patient was advised to see Heme-Onc as outpatient. Monitor renal function. Renal prognosis is poor. Avoid nephrotoxic agents. Meds dosage based on GFR. Patient was started on hemodialysis as CKD progressed to ESRD and presented with uremia, hyperkalemia, metabolic acidosis and volume overload. Hmeodialysis: 08/19, 08/20. 2. FEN: Hyperkalemia, improved. Metabolic acidosis, s/p HD, monitor. Volume overload, improved. Monitor lytes. 3. Anemia, POA: S/p PRBC. Epogen with HD. 4. Uncontrolled HTN: Continue home meds. UF with HD. BP is better. 5. Decompensated CHF: BP and volume control. EF 65% seen on Echo 10/2018. Strict I/O, fluid restriction, low sodium diet. 6. Acute hypoxic respiratory failure, POA: 2/2 fluid overload. Supplemental O2 as needed. UF with HD. 7. Type II DM: Accu-Chek sliding scale coverage ADA diet. 8. Tobacco abuse: Smoking cessation counseling. 9. Medical non-compliance: Counseled. Await outpatient HD chair. Subjective: Pt was seen and examined at the bedside. Doing ok. Examination: General appearance: well-developed, appears stated age, appears emaciated, not in distress HEENT: ATNC, LINDSAY, hearing intact, vision intact Neck: neck supple, trachea midline Respiratory: Clear to Auscultation Heart: regular, S1S2, no murmur Gastrointestinal: Soft, normoactive bowel sounds, obese Integumentary: LE stasis changes noted Neurologic: able to move extremities, bilateral claw hand, no asterixis Ext: no edema noted Hemodialysis access: R IJ tunnel catheter Subjective Date of service: 08/21/20 Objective - Vital Signs Vital signs: Vital Signs - 12hr 08/20/20 08/20/20 08/21/20 23:00 23:11 00:00 Temperature 99.5 F Pulse Rate 70 62 Pulse Rate [ 63 From Monitor] Respiratory 17 16 Rate Blood Pressure 192/66 175/64 O2 Sat by Pulse 99 99 Oximetry 08/21/20 08/21/20 08/21/20 01:00 02:00 02:13 Temperature Pulse Rate 63 67 67 Pulse Rate [ From Monitor] Respiratory 17 18 Rate Blood Pressure 172/57 197/71 197/71 O2 Sat by Pulse 97 99 Oximetry 08/21/20 08/21/20 08/21/20 03:00 03:25 04:00 Temperature 99.1 F Pulse Rate 67 70 Pulse Rate [ 72 From Monitor] Respiratory 21 16 Rate Blood Pressure 153/51 157/76 O2 Sat by Pulse 97 97 Oximetry 08/21/20 08/21/20 08/21/20 05:00 06:00 07:00 Temperature Pulse Rate 69 73 60 Pulse Rate [ From Monitor] Respiratory 15 20 17 Rate Blood Pressure 143/42 129/55 138/51 O2 Sat by Pulse 96 96 97 Oximetry 08/21/20 08/21/20 08:00 08:08 Temperature 98.4 F Pulse Rate 64 Pulse Rate [ From Monitor] Respiratory 10 L Rate Blood Pressure 140/51 O2 Sat by Pulse 97 98 Oximetry - Lab 08/21/20 05:06 08/21/20 05:06 Most recent lab results ABG pH 7.382 (7.320-7.450) 08/19/20 01:18 ABG O2 Saturation 98.7 (0-100) 08/19/20 01:18 Calcium 7.5 mg/dL (8.4-10.2) L 08/21/20 05:06 Phosphorus 5.20 mg/dL (2.5-4.5) H 08/18/20 21:19 Magnesium 1.80 mg/dL (1.7-2.3) 08/18/20 21:19 Medications & Allergies - Medications Allergies/Adverse Reactions: Allergies Beta-Blockers (Beta-Adrenergic Bloc Adverse Reaction (Verified 08/19/20 00:37) Anaphylaxis Home Medications: Home Medications Medication Instructions Recorded Confirmed Last Taken Type Aspirin [Aspirin BABY CHEW TAB] 81 mg PO QDAY #30 tab.chew 01/08/20 08/19/20 Unknown Rx Sodium Bicarbonate 650 mg PO TID #90 tablet 01/08/20 08/19/20 Unknown Rx Acetaminophen [Tylenol] 500 mg PO Q8HR PRN 08/19/20 08/19/20 Unknown History Furosemide [Lasix] 40 mg PO DAILY 08/19/20 08/19/20 Unknown History NIFEdipine [Nifedipine ER] 60 mg PO DAILY 08/19/20 08/19/20 Unknown History Pantoprazole Sodium 40 mg PO DAILY 08/19/20 08/19/20 Unknown History Active Medications: Generic Name Dose Route Start Last Admin Trade Name Freq PRN Reason Stop Dose Admin Acetaminophen 650 mg 08/18/20 23:24 08/20/20 05:09 Acetaminophen 325 Mg Tab PO 650 mg Q4H PRN Administration Pain MILD(1-3)/Fever >100.5/LIRA Albuterol 2.5 mg 08/18/20 23:24 Albuterol 2.5 Mg/3 Ml Nebu IH Q3HRT PRN Shortness Of Breath Aspirin 81 mg 08/19/20 10:00 08/21/20 09:30 Aspirin 81 Mg Tab Chew PO 81 mg QDAY MICHA Administration Atorvastatin Calcium 40 mg 08/19/20 22:00 08/20/20 22:56 Atorvastatin 40 Mg Tab PO 40 mg QHS MICHA Administration Dextrose 50 ml 08/18/20 23:24 Dextrose 50% In Water (25gm) 50 Ml Syringe IV Q30MIN PRN Hypoglycemia Protocol Docusate Sodium 100 mg 08/19/20 10:00 08/21/20 09:31 Docusate Sodium 100 Mg Cap PO 100 mg BID MICHA Administration Famotidine 20 mg 08/19/20 10:00 08/21/20 09:31 Famotidine 20 Mg Tab PO 20 mg DAILY MICHA Administration Folic Acid 1 mg 08/19/20 10:00 08/21/20 09:30 Folic Acid 1 Mg Tab PO 1 mg QDAY MICHA Administration Furosemide 40 mg 08/20/20 10:00 08/21/20 09:30 Furosemide 40 Mg Tab PO 40 mg DAILY MICHA Administration Hydralazine HCl 10 mg 08/20/20 09:36 08/21/20 02:13 Hydralazine 20 Mg/1 Ml Inj IV 10 mg Q4HR PRN Administration Hypertension Sodium Chloride 100 mls @ 999 mls/hr 08/19/20 10:39 Nacl 0.9% IV ERICH PRN Hypotension Insulin Human Lispro 0 unit 08/19/20 07:30 08/21/20 08:10 Insulin Lispro 100 Unit/Ml SUB-Q Not Given ACHS MICHA Protocol Multivitamins 1 each 08/19/20 10:00 08/21/20 09:32 Multivitamins ,Therapeutic Tab PO 1 each QDAY MICHA Administration Nicotine 14 mg 08/19/20 10:00 08/21/20 09:30 Nicotine 14 Mg/24 Hr Patch TD 14 mg QDAY MICHA Administration Nifedipine 30 mg 08/20/20 10:00 08/21/20 09:31 Nifedipine Xl 30 Mg Tab PO 30 mg BID MICHA Administration Nitroglycerin 0.4 mg 08/18/20 23:24 Nitroglycerin 0.4 Mg Tab Subl SL .Q5MIN PRN Chest Pain Ondansetron HCl 4 mg 08/18/20 23:24 Ondansetron 4 Mg/2 Ml Inj IV Q6H PRN Nausea And Vomiting Sodium Bicarbonate 650 mg 08/20/20 14:00 08/21/20 08:11 Sodium Bicarbonate 650 Mg Tab PO 650 mg TID MICHA Administration Sodium Chloride 10 ml 08/19/20 10:00 08/21/20 09:33 Sodium Chloride 0.9% 10 Ml Flush Syringe IV 10 ml BID MICHA Administration Sodium Chloride 10 ml 08/18/20 23:24 Sodium Chloride 0.9% 10 Ml Flush Syringe IV PRN PRN LINE FLUSH
[2020-08-21] MEDS ORDERED: HEPARIN 10,000 UNITS/10 ML VIAL IV PRN (11:00)
--- NOTE | 2020-08-21 17:23 | Progress Note ---
Assessment and Plan Assessment and Plan Assessment and plan: --Hypertensive urgency present on admission Moderate control ,Continue current antihypertensives and as needed IV hydralazine --chronic kidney disease changed to ESRD Nephrology initiated hemodialysis Patient received HD yesterday Hemodialysis per schedule/as needed Case management to set up outpatient HD placement If nephrology decides long-term HD --Acute hyperkalemia Resolved after HD yesterday Potassium levels within normal limits --Fluid overload; Secondary to ESRD Patient received HD yesterday Symptoms improved --Anemia of chronic kidney disease; Hb 6.8, received 1 unit of PRBC, Hb improved to 8.0 Closely monitor H&H, transfuse additional PRBC as needed --Acute Exacerbation CHF/fluid overload due to ESRD Continue antifailure medications, nephrology initiating HD EF 65% seen on Echo 10/2018 -CXR most consistent with congestive heart failure and interval development of bilateral interstitial edema -Patient has had multiple MPI stress testing, most recent was 03/2019 which was negative for ischemia -Cardiology evaluation noted and appreciated No plans of ischemia work-up, medical management --Acute hypoxic respiratory failure Due to fluid overload, acute on chronic congestive heart failure Treat the underlying cause, symptoms significantly improved --Type II DM Accu-Chek sliding scale coverage ADA diet Insulin as needed, HbA1c 4.9 --Tobacco abuse Smoking cessation counseling Advised nicotine patch as needed --DVT prophylaxis; Heparin renal dose We will closely monitor the patient and adjust management as needed Plan of care reviewed with the patient and his nurse I also discussed with e commerce analyst Dr. Ann Discussed with [facility] primary care physician Dr. Mock Advance Directives: No VTE prophylaxis?: Chemical, Mechanical Plan of care discussed with patient/family: Yes Subjective Date of service: 08/21/20 Principal diagnosis: CHF exacerbation, respiratory failure Interval history: Brief history and hospital course; Patient was admitted with acute hypoxic respiratory failure due to fluid overload due to chronic kidney disease Nephrology evaluated, initiated hemodialysis after HD catheter placement, patient symptoms significantly improved Cardiology evaluated the patient, no ischemia work-up planned, medical management. If nephrology plans long-term HD Case management need to set up outpatient HD placement 08/20/2020; Patient feels better, received HD yesterday Nephrology cardiology following, blood pressures fluctuating Medications optimized I discussed with [facility] PMD Dr. Mock[on 11/19/2020] 08/21/2020 Less shortness of breath Objective - Constitutional Vitals: Vital Signs - 12hr 08/21/20 08/21/20 08/21/20 06:00 07:00 08:00 Temperature 98.4 F Pulse Rate 73 60 64 Respiratory 20 17 10 L Rate Blood Pressure 129/55 138/51 140/51 O2 Sat by Pulse 96 97 97 Oximetry 08/21/20 08/21/20 08/21/20 08:08 09:00 10:00 Temperature Pulse Rate 62 60 Respiratory 16 12 Rate Blood Pressure 137/41 146/43 O2 Sat by Pulse 98 98 97 Oximetry 08/21/20 08/21/20 08/21/20 11:00 12:00 13:00 Temperature 100.0 F H Pulse Rate 60 58 L 70 Respiratory 17 16 22 Rate Blood Pressure 122/41 148/50 129/43 O2 Sat by Pulse 96 Oximetry 08/21/20 14:00 Temperature Pulse Rate 61 Respiratory 20 Rate Blood Pressure 137/51 O2 Sat by Pulse 90 Oximetry General appearance: Present: mild distress, well-nourished - EENT Eyes: PERRL, EOM intact ENT: hearing intact, clear oral mucosa Ears: bilateral: normal - Neck Neck: supple, normal ROM - Respiratory Respiratory effort: normal Respiratory: bilateral: CTA, rhonchi - Breasts Breasts: normal - Cardiovascular Heart rate: 78 Rhythm: regular Heart Sounds: Present: S1 & S2. Absent: gallop, rub Extremities: pulses intact, No edema, normal color, Full ROM - Gastrointestinal General gastrointestinal: Present: soft, non-tender, non-distended, normal bowel sounds - Genitourinary Male genitourinary: normal - Integumentary Integumentary: clear, warm, dry - Musculoskeletal Musculoskeletal: 1, strength equal bilaterally - Neurologic Neurologic: moves all extremities - Psychiatric Psychiatric: memory intact, appropriate mood/affect, intact judgment & insight - Allied health notes Allied health notes reviewed: nursing, case management - Labs CBC & Chem 7: 08/21/20 05:06 08/21/20 05:06 Labs: Abnormal lab results 08/20/20 08/20/20 08/21/20 Range/Units 16:35 20:43 05:06 Hgb 9.1 L (11.8-15.2) gm/dl Hct 27.1 L (35.5-45.6) % BUN (9-20) mg/dL Creatinine (0.8-1.3) mg/dL Glucose (75-100) mg/dL POC Glucose 132 H 107 H (70-105) mg/dL Calcium (8.4-10.2) mg/dL 08/21/20 08/21/20 Range/Units 05:06 11:56 Hgb (11.8-15.2) gm/dl Hct (35.5-45.6) % BUN 41 H (9-20) mg/dL Creatinine 4.5 H (0.8-1.3) mg/dL Glucose 110 H (75-100) mg/dL POC Glucose 111 H (70-105) mg/dL Calcium 7.5 L (8.4-10.2) mg/dL HEART Score - HEART Score Troponin: Troponin T 0.043 ng/mL (0.00-0.029) H 08/18/20 22:47
[2020-08-22] MEDS: INSULIN LISPRO 100 UNIT/ML SUB-Q SCH ×3 (08:10→22:04)
[2020-08-22] MEDS: FUROSEMIDE 40 MG TAB PO SCH (12:09)
[2020-08-22] MEDS: FAMOTIDINE 20 MG TAB PO SCH (12:09)
[2020-08-22] MEDS: DOCUSATE SODIUM 100 MG CAP PO SCH ×2 (12:09→21:59)
[2020-08-22] MEDS: NIFEdipine XL 30 MG TAB PO SCH ×2 (12:09→21:59)
[2020-08-22] MEDS: NICOTINE 14 MG/24 HR PATCH TD SCH (12:10)
[2020-08-22] MEDS: FOLIC ACID 1 MG TAB PO SCH (12:10)
[2020-08-22] MEDS: ASPIRIN 81 MG TAB CHEW PO SCH (12:10)
[2020-08-22] MEDS: SODIUM BICARBONATE 650 MG TAB PO SCH ×3 (12:10→20:16)
[2020-08-22] MEDS: MULTIVITAMINS ,THERAPEUTIC TAB PO SCH (12:11)
--- NOTE | 2020-08-22 12:13 | Progress Note ---
Assessment and Plan 1. ESRD: CKD has progressed to ESRD. Patient was admitted with uremic symptoms and elevated creatinine from his baseline. CKD most likely from hypertensive nephropathy. Prior workup include SAHIL, ANCA, GBM Ab, complements, SPEP, UPEP, Hep panel and HIV were negative. [place]:Lambda ratio was elevated. Patient was advised to see Heme-Onc as outpatient. Monitor renal function. Renal prognosis is poor. Avoid nephrotoxic agents. Meds dosage based on GFR. Patient was started on hemodialysis as CKD progressed to ESRD and presented with uremia, hyperkalemia, metabolic acidosis and volume overload. Hmeodialysis: 08/19, 08/20. 2. FEN: Hyperkalemia, improved. Metabolic acidosis, s/p HD, monitor. Volume overload, improved. Monitor lytes. 3. Anemia, POA: S/p PRBC. Epogen with HD. 4. Uncontrolled HTN: Continue home meds. UF with HD. BP is better. 5. Decompensated CHF: BP and volume control. EF 65% seen on Echo 10/2018. Strict I/O, fluid restriction, low sodium diet. 6. Acute hypoxic respiratory failure, POA: 2/2 fluid overload. Supplemental O2 as needed. UF with HD. 7. Type II DM: Accu-Chek sliding scale coverage ADA diet. 8. Tobacco abuse: Smoking cessation counseling. 9. Medical non-compliance: Counseled. Await outpatient HD chair. Subjective: Pt was seen and examined at the bedside. Doing ok. Examination: General appearance: well-developed, appears stated age, appears emaciated, not in distress HEENT: ATNC, [place], hearing intact, vision intact Neck: neck supple, trachea midline Respiratory: Clear to Auscultation Heart: regular, S1S2, no murmur Gastrointestinal: Soft, normoactive bowel sounds, obese Integumentary: LE stasis changes noted, R leg dressing noted Neurologic: able to move extremities, bilateral claw hand, no asterixis Ext: no edema noted Hemodialysis access: R IJ tunnel catheter Subjective Date of service: 08/22/20 Principal diagnosis: CHF exacerbation, respiratory failure Objective - Vital Signs Vital signs: Vital Signs - 12hr 08/22/20 08/22/20 08/22/20 01:00 02:00 03:00 Temperature Pulse Rate 66 67 63 Pulse Rate [ From Monitor] Respiratory 19 16 18 Rate Blood Pressure 163/59 145/44 156/61 O2 Sat by Pulse 97 98 97 Oximetry 08/22/20 08/22/20 08/22/20 04:00 05:00 06:00 Temperature 98.2 F Pulse Rate 72 67 64 Pulse Rate [ 65 From Monitor] Respiratory 17 19 18 Rate Blood Pressure 162/57 171/57 157/64 O2 Sat by Pulse 99 97 Oximetry 08/22/20 08/22/20 07:28 07:30 Temperature 98.5 F Pulse Rate Pulse Rate [ From Monitor] Respiratory Rate Blood Pressure O2 Sat by Pulse 97 Oximetry - Lab 08/21/20 05:06 08/23/20 06:10 Most recent lab results ABG pH 7.382 (7.320-7.450) 08/19/20 01:18 ABG O2 Saturation 98.7 (0-100) 08/19/20 01:18 Calcium 7.5 mg/dL (8.4-10.2) L 08/21/20 05:06 Phosphorus 5.20 mg/dL (2.5-4.5) H 08/18/20 21:19 Magnesium 1.80 mg/dL (1.7-2.3) 08/18/20 21:19 Medications & Allergies - Medications Allergies/Adverse Reactions: Allergies Beta-Blockers (Beta-Adrenergic Bloc Adverse Reaction (Verified 08/19/20 00:37) Anaphylaxis Home Medications: Home Medications Medication Instructions Recorded Confirmed Last Taken Type Aspirin [Aspirin BABY CHEW TAB] 81 mg PO QDAY #30 tab.chew 01/08/20 08/19/20 Unknown Rx Sodium Bicarbonate 650 mg PO TID #90 tablet 01/08/20 08/19/20 Unknown Rx Acetaminophen [Tylenol] 500 mg PO Q8HR PRN 08/19/20 08/19/20 Unknown History Furosemide [Lasix] 40 mg PO DAILY 08/19/20 08/19/20 Unknown History NIFEdipine [Nifedipine ER] 60 mg PO DAILY 08/19/20 08/19/20 Unknown History Pantoprazole Sodium 40 mg PO DAILY 08/19/20 08/19/20 Unknown History Active Medications: Generic Name Dose Route Start Last Admin Trade Name Freq PRN Reason Stop Dose Admin Acetaminophen 650 mg 08/18/20 23:24 08/20/20 05:09 Acetaminophen 325 Mg Tab PO 650 mg Q4H PRN Administration Pain MILD(1-3)/Fever >100.5/LIRA Albuterol 2.5 mg 08/18/20 23:24 Albuterol 2.5 Mg/3 Ml Nebu IH Q3HRT PRN Shortness Of Breath Aspirin 81 mg 08/19/20 10:00 08/21/20 09:30 Aspirin 81 Mg Tab Chew PO 81 mg QDAY MICHA Administration Atorvastatin Calcium 40 mg 08/19/20 22:00 08/21/20 21:46 Atorvastatin 40 Mg Tab PO 40 mg QHS MICHA Administration Dextrose 50 ml 08/18/20 23:24 Dextrose 50% In Water (25gm) 50 Ml Syringe IV Q30MIN PRN Hypoglycemia Protocol Docusate Sodium 100 mg 08/19/20 10:00 08/21/20 21:46 Docusate Sodium 100 Mg Cap PO 100 mg BID MICHA Administration Famotidine 20 mg 08/19/20 10:00 08/21/20 09:31 Famotidine 20 Mg Tab PO 20 mg DAILY MICHA Administration Folic Acid 1 mg 08/19/20 10:00 08/21/20 09:30 Folic Acid 1 Mg Tab PO 1 mg QDAY MICHA Administration Furosemide 40 mg 08/20/20 10:00 08/21/20 09:30 Furosemide 40 Mg Tab PO 40 mg DAILY MICHA Administration Heparin Sodium (Porcine) 3,000 unit 08/21/20 11:00 Heparin 10,000 Units/10 Ml Vial IV ERICH PRN hemodialysis Hydralazine HCl 10 mg 08/20/20 09:36 08/21/20 02:13 Hydralazine 20 Mg/1 Ml Inj IV 10 mg Q4HR PRN Administration Hypertension Sodium Chloride 100 mls @ 999 mls/hr 08/19/20 10:39 Nacl 0.9% IV ERICH PRN Hypotension Insulin Human Lispro 0 unit 08/19/20 07:30 08/21/20 21:46 Insulin Lispro 100 Unit/Ml SUB-Q Not Given ACHS [facility] Protocol Multivitamins 1 each 08/19/20 10:00 08/21/20 09:32 Multivitamins ,Therapeutic Tab PO 1 each QDAY MICHA Administration Nicotine 14 mg 08/19/20 10:00 08/21/20 09:30 Nicotine 14 Mg/24 Hr Patch TD 14 mg QDAY MICHA Administration Nifedipine 30 mg 08/20/20 10:00 08/21/20 21:46 Nifedipine Xl 30 Mg Tab PO 30 mg BID MICHA Administration Nitroglycerin 0.4 mg 08/18/20 23:24 Nitroglycerin 0.4 Mg Tab Subl SL .Q5MIN PRN Chest Pain Ondansetron HCl 4 mg 08/18/20 23:24 Ondansetron 4 Mg/2 Ml Inj IV Q6H PRN Nausea And Vomiting Sodium Bicarbonate 650 mg 08/20/20 14:00 08/21/20 20:14 Sodium Bicarbonate 650 Mg Tab PO 650 mg TID MICHA Administration Sodium Chloride 10 ml 08/19/20 10:00 08/21/20 21:47 Sodium Chloride 0.9% 10 Ml Flush Syringe IV 10 ml BID MICHA Administration Sodium Chloride 10 ml 08/18/20 23:24 Sodium Chloride 0.9% 10 Ml Flush Syringe IV PRN PRN LINE FLUSH
--- NOTE | 2020-08-22 12:41 | Progress Note ---
Assessment and Plan Elevated troponin s/t CKD pt denies chest pain Volume overload Chronic kidney disease with progression to ESRD, awaits hemodialysis. Anemia Hypertension Cardiac tests: No ischemia by MPI 03/2019. Normal LVEF, 65% by echo 10/2018. Normal coronaries by [facility] in 2013. Conservative cardiac management. Will follow intermittently. Subjective Date of service: 08/22/20 Principal diagnosis: CHF exacerbation, respiratory failure Interval history: General condition same Objective Vital Signs Temp Pulse Pulse Resp BP Pulse Ox 08/22/20 07:30 98.5 F 08/22/20 07:28 97 08/22/20 06:00 64 18 157/64 08/22/20 05:00 67 19 171/57 97 08/22/20 04:00 98.2 F 72 65 17 162/57 99 08/22/20 03:00 63 18 156/61 97 08/22/20 02:00 67 16 145/44 98 08/22/20 01:00 66 19 163/59 97 08/22/20 00:00 65 64 16 170/66 99 08/21/20 23:22 68 22 155/73 98 08/21/20 23:00 62 11 L 137/65 97 08/21/20 22:00 69 10 L 153/56 99 08/21/20 21:00 63 10 L 161/54 98 08/21/20 20:32 99 08/21/20 20:00 98.9 F 66 64 10 L 149/51 91 08/21/20 19:00 64 13 145/53 83 L 08/21/20 18:00 68 14 172/65 93 08/21/20 17:00 63 13 143/56 86 08/21/20 16:00 63 12 147/55 100 08/21/20 15:00 62 24 157/53 96 08/21/20 14:00 61 20 137/51 90 08/21/20 13:00 70 22 129/43 96 - Physical Examination General: No Apparent Distress HEENT: Positive: PERRL, Mucus Membranes Moist Neck: Positive: trachea midline Cardiac: Positive: Reg Rate and Rhythm Lungs: Positive: clear to auscultation Neuro: Positive: Grossly Intact Abdomen: Positive: Unremarkable Extremities: Present: normal
[2020-08-23] MEDS: hydrALAZINE 20 MG/1 ML INJ IV PRN (00:05)
[2020-08-23 06:50] LABS: Calcium 6.8 mg/dL (8.4-10.2)
[2020-08-23] MEDS: INSULIN LISPRO 100 UNIT/ML SUB-Q SCH ×4 (08:23→22:21)
[2020-08-23] MEDS: SODIUM BICARBONATE 650 MG TAB PO SCH ×3 (08:30→22:03)
[2020-08-23] MEDS: FAMOTIDINE 20 MG TAB PO SCH (10:03)
[2020-08-23] MEDS: NICOTINE 14 MG/24 HR PATCH TD SCH ×2 (10:03→10:15)
[2020-08-23] MEDS: FOLIC ACID 1 MG TAB PO SCH (10:03)
[2020-08-23] MEDS: MULTIVITAMINS ,THERAPEUTIC TAB PO SCH (10:03)
[2020-08-23] MEDS: FUROSEMIDE 40 MG TAB PO SCH (10:03)
[2020-08-23] MEDS: ASPIRIN 81 MG TAB CHEW PO SCH (10:04)
[2020-08-23] MEDS: NIFEdipine XL 30 MG TAB PO SCH ×2 (10:04→22:03)
[2020-08-23] MEDS: DOCUSATE SODIUM 100 MG CAP PO SCH ×2 (10:04→22:03)
--- NOTE | 2020-08-23 12:39 | Progress Note ---
Assessment and Plan - Patient Problems (1) Elevated troponin Current Visit: Yes Status: Acute Plan to address problem: Nonspecific troponin elevation in the setting of acute on chronic kidney failure. Patient has undergone catheter placement for initiation of hemodialysis. Subjective Date of service: 08/23/20 Principal diagnosis: CHF exacerbation, respiratory failure Interval history: Patient is comfortable, no acute distress, no chest pain and no shortness of breath. Objective Vital Signs Temp Pulse Pulse Resp BP Pulse Ox 08/23/20 10:01 67 17 135/37 94 08/23/20 09:01 71 14 127/104 93 08/23/20 08:01 67 22 147/48 95 08/23/20 08:00 66 67 22 95 08/23/20 07:54 96 08/23/20 07:00 68 18 138/51 96 08/23/20 06:00 68 17 138/51 96 08/23/20 05:01 75 24 148/46 96 08/23/20 04:01 74 13 148/46 96 08/23/20 04:00 98.3 F 78 78 20 97 08/23/20 03:01 77 16 147/51 96 08/23/20 02:01 79 14 144/44 96 08/23/20 01:01 73 17 138/76 95 08/23/20 00:00 99.4 F 63 68 22 171/60 97 08/22/20 23:59 66 23 183/69 97 08/22/20 23:00 67 23 183/69 97 08/22/20 22:01 66 20 178/56 97 08/22/20 21:01 72 16 169/54 98 08/22/20 20:51 99 08/22/20 20:01 65 14 169/54 88 08/22/20 20:00 98.2 F 66 66 20 99 08/22/20 19:01 69 22 179/68 100 08/22/20 18:01 68 15 179/68 99 08/22/20 17:00 63 15 159/64 97 08/22/20 16:00 64 23 165/52 99 08/22/20 15:00 64 21 149/59 100 08/22/20 14:00 63 21 165/59 96 08/22/20 13:00 63 19 137/59 98 - Physical Examination General: No Apparent Distress HEENT: Positive: PERRL, Mucus Membranes Moist Neck: Positive: trachea midline Cardiac: Positive: Reg Rate and Rhythm Lungs: Positive: Decreased Breath Sounds Neuro: Positive: Grossly Intact Abdomen: Positive: Soft Skin: Positive: Clear Extremities: Absent: edema - Labs and Meds Comprehensive Metabolic Panel 08/23/20 Range/Units 06:10 Sodium 140 (137-145) mmol/L Potassium 3.9 (3.6-5.0) mmol/L Chloride 100.1 (98-107) mmol/L Carbon Dioxide 26 (22-30) mmol/L BUN 57 H (9-20) mg/dL Creatinine 6.3 H (0.8-1.3) mg/dL Glucose 97 (75-100) mg/dL Calcium 6.8 L (8.4-10.2) mg/dL
--- NOTE | 2020-08-23 14:59 | Progress Note ---
Assessment and Plan Assessment and Plan Assessment and plan: --Hypertensive urgency present on admission Moderate control ,Continue current antihypertensives and as needed IV hydralazine --chronic kidney disease changed to ESRD Nephrology initiated hemodialysis Patient received HD yesterday Hemodialysis per schedule/as needed Case management to set up outpatient HD placement If nephrology decides long-term HD --Acute hyperkalemia Resolved after HD yesterday Potassium levels within normal limits --Fluid overload; Secondary to ESRD Patient received HD yesterday Symptoms improved --Anemia of chronic kidney disease; Hb 6.8, received 1 unit of PRBC, Hb improved to 8.0 Closely monitor H&H, transfuse additional PRBC as needed --Acute Exacerbation CHF/fluid overload due to ESRD Continue antifailure medications, nephrology initiating HD EF 65% seen on Echo 10/2018 -CXR most consistent with congestive heart failure and interval development of bilateral interstitial edema -Patient has had multiple MPI stress testing, most recent was 03/2019 which was negative for ischemia -Cardiology evaluation noted and appreciated No plans of ischemia work-up, medical management --Acute hypoxic respiratory failure Due to fluid overload, acute on chronic congestive heart failure Treat the underlying cause, symptoms significantly improved --Type II DM Accu-Chek sliding scale coverage ADA diet Insulin as needed, HbA1c 4.9 --Tobacco abuse Smoking cessation counseling Advised nicotine patch as needed --DVT prophylaxis; Heparin renal dose We will closely monitor the patient and adjust management as needed Plan of care reviewed with the patient and his nurse I also discussed with director outpatient services Dr. Ann Discussed with [facility] primary care physician Dr. Mock Advance Directives: No VTE prophylaxis?: Chemical, Mechanical Plan of care discussed with patient/family: Yes Subjective Date of service: 08/22/20 Principal diagnosis: CHF exacerbation, respiratory failure Interval history: Brief history and hospital course; Patient was admitted with acute hypoxic respiratory failure due to fluid overload due to chronic kidney disease Nephrology evaluated, initiated hemodialysis after HD catheter placement, patient symptoms significantly improved Cardiology evaluated the patient, no ischemia work-up planned, medical management. If nephrology plans long-term HD Case management need to set up outpatient HD placement 08/20/2020; Patient feels better, received HD yesterday Nephrology cardiology following, blood pressures fluctuating Medications optimized I discussed with [facility] PMD Dr. Mock[on 11/19/2020] 08/21/2020 Less shortness of breath 08/22/2020 Medications optimized Less shortness of breath Objective - Constitutional Vitals: Vital Signs - 12hr 08/23/20 08/23/20 08/23/20 03:01 04:00 04:01 Temperature 98.3 F Pulse Rate 77 78 74 Pulse Rate [ 78 From Monitor] Respiratory 16 20 13 Rate Blood Pressure 147/51 148/46 O2 Sat by Pulse 96 97 96 Oximetry 08/23/20 08/23/20 08/23/20 05:01 06:00 07:00 Temperature Pulse Rate 75 68 68 Pulse Rate [ From Monitor] Respiratory 24 17 18 Rate Blood Pressure 148/46 138/51 138/51 O2 Sat by Pulse 96 96 96 Oximetry 08/23/20 08/23/20 08/23/20 07:54 08:00 08:01 Temperature Pulse Rate 66 67 Pulse Rate [ 67 From Monitor] Respiratory 22 22 Rate Blood Pressure 147/48 O2 Sat by Pulse 96 95 95 Oximetry 08/23/20 08/23/20 08/23/20 09:01 10:01 11:01 Temperature Pulse Rate 71 67 71 Pulse Rate [ From Monitor] Respiratory 14 17 15 Rate Blood Pressure 127/104 135/37 135/37 O2 Sat by Pulse 93 94 96 Oximetry 08/23/20 08/23/20 08/23/20 12:00 13:00 14:00 Temperature Pulse Rate 62 62 66 Pulse Rate [ 64 From Monitor] Respiratory 18 20 16 Rate Blood Pressure 140/51 141/54 128/47 O2 Sat by Pulse 94 92 95 Oximetry General appearance: Present: no acute distress, well-nourished - EENT Eyes: PERRL, EOM intact ENT: hearing intact, clear oral mucosa Ears: bilateral: normal - Neck Neck: supple, normal ROM - Respiratory Respiratory effort: normal Respiratory: bilateral: CTA - Breasts Breasts: normal - Cardiovascular Heart rate: 78 Rhythm: regular Heart Sounds: Present: S1 & S2. Absent: gallop, rub Extremities: pulses intact, No edema, normal color, Full ROM - Gastrointestinal General gastrointestinal: Present: soft, non-tender, non-distended, normal bowel sounds - Genitourinary Male genitourinary: normal - Integumentary Integumentary: clear, warm, dry - Musculoskeletal Musculoskeletal: 1, strength equal bilaterally - Neurologic Neurologic: moves all extremities - Psychiatric Psychiatric: memory intact, appropriate mood/affect, intact judgment & insight - Labs CBC & Chem 7: 08/21/20 05:06 08/23/20 06:10 Labs: Abnormal lab results 08/22/20 08/23/20 08/23/20 Range/Units 16:20 06:10 11:23 BUN 57 H (9-20) mg/dL Creatinine 6.3 H (0.8-1.3) mg/dL POC Glucose 131 H 180 H (70-105) mg/dL Calcium 6.8 L (8.4-10.2) mg/dL HEART Score - HEART Score Troponin: Troponin T 0.043 ng/mL (0.00-0.029) H 08/18/20 22:47
--- NOTE | 2020-08-23 15:00 | Progress Note ---
Assessment and Plan Assessment and Plan --Hypertensive urgency present on admission Moderate control ,Continue current antihypertensives and as needed IV hydralazine --chronic kidney disease changed to ESRD Nephrology initiated hemodialysis Patient received HD yesterday Hemodialysis per schedule/as needed Case management to set up outpatient HD placement If nephrology decides long-term HD --Acute hyperkalemia Resolved after HD yesterday Potassium levels within normal limits --Fluid overload; Secondary to ESRD Patient received HD yesterday Symptoms improved --Anemia of chronic kidney disease; Hb 6.8, received 1 unit of PRBC, Hb improved to 8.0 Closely monitor H&H, transfuse additional PRBC as needed --Acute Exacerbation CHF/fluid overload due to ESRD Continue antifailure medications, nephrology initiating HD EF 65% seen on Echo 10/2018 -CXR most consistent with congestive heart failure and interval development of b ilateral interstitial edema -Patient has had multiple MPI stress testing, most recent was 03/2019 which was negative for ischemia -Cardiology evaluation noted and appreciated No plans of ischemia work-up, medical management --Acute hypoxic respiratory failure Due to fluid overload, acute on chronic congestive heart failure Treat the underlying cause, symptoms significantly improved --Type II DM Accu-Chek sliding scale coverage ADA diet Insulin as needed, HbA1c 4.9 --Tobacco abuse Smoking cessation counseling Advised nicotine patch as needed --DVT prophylaxis; Heparin renal dose We will closely monitor the patient and adjust management as needed Plan of care reviewed with the patient and his nurse I also discussed with dial screw assembler Dr. Ann Discussed with [facility] primary care physician Dr. Mock Advance Directives: No VTE prophylaxis?: Chemical, Mechanical Plan of care discussed with patient/family: Yes Probable discharge tomorrow Subjective Date of service: 08/23/20 Principal diagnosis: CHF exacerbation, respiratory failure Interval history: Brief history and hospital course; Patient was admitted with acute hypoxic respiratory failure due to fluid overload due to chronic kidney disease Nephrology evaluated, initiated hemodialysis after HD catheter placement, patient symptoms significantly improved Cardiology evaluated the patient, no ischemia work-up planned, medical management. If nephrology plans long-term HD Case management need to set up outpatient HD placement 08/20/2020; Patient feels better, received HD yesterday Nephrology cardiology following, blood pressures fluctuating Medications optimized I discussed with [facility] PMD Dr. Mock[on 11/19/2020] 08/21/2020 Less shortness of breath 08/22/2020 Shortness of breath improved 08/23/2020 Patient to be transferred to regular medical floor-telemetry Objective - Constitutional Vitals: Vital Signs - 12hr 08/23/20 08/23/20 08/23/20 03:01 04:00 04:01 Temperature 98.3 F Pulse Rate 77 78 74 Pulse Rate [ 78 From Monitor] Respiratory 16 20 13 Rate Blood Pressure 147/51 148/46 O2 Sat by Pulse 96 97 96 Oximetry 08/23/20 08/23/20 08/23/20 05:01 06:00 07:00 Temperature Pulse Rate 75 68 68 Pulse Rate [ From Monitor] Respiratory 24 17 18 Rate Blood Pressure 148/46 138/51 138/51 O2 Sat by Pulse 96 96 96 Oximetry 08/23/20 08/23/20 08/23/20 07:54 08:00 08:01 Temperature Pulse Rate 66 67 Pulse Rate [ 67 From Monitor] Respiratory 22 22 Rate Blood Pressure 147/48 O2 Sat by Pulse 96 95 95 Oximetry 08/23/20 08/23/20 08/23/20 09:01 10:01 11:01 Temperature Pulse Rate 71 67 71 Pulse Rate [ From Monitor] Respiratory 14 17 15 Rate Blood Pressure 127/104 135/37 135/37 O2 Sat by Pulse 93 94 96 Oximetry 08/23/20 08/23/20 08/23/20 12:00 13:00 14:00 Temperature Pulse Rate 62 62 66 Pulse Rate [ 64 From Monitor] Respiratory 18 20 16 Rate Blood Pressure 140/51 141/54 128/47 O2 Sat by Pulse 94 92 95 Oximetry General appearance: Present: no acute distress, well-nourished - EENT Eyes: PERRL, EOM intact ENT: hearing intact, clear oral mucosa Ears: bilateral: normal - Neck Neck: supple, normal ROM - Respiratory Respiratory effort: normal Respiratory: bilateral: CTA - Breasts Breasts: normal - Cardiovascular Heart rate: 78 Rhythm: regular Heart Sounds: Present: S1 & S2. Absent: gallop, rub Extremities: pulses intact, No edema, normal color, Full ROM - Gastrointestinal General gastrointestinal: Present: soft, non-tender, non-distended, normal bowel sounds - Genitourinary Male genitourinary: normal - Integumentary Integumentary: clear, warm, dry - Musculoskeletal Musculoskeletal: 1, strength equal bilaterally - Neurologic Neurologic: moves all extremities - Psychiatric Psychiatric: memory intact, appropriate mood/affect, intact judgment & insight - Labs CBC & Chem 7: 08/21/20 05:06 08/23/20 06:10 Labs: Abnormal lab results 08/22/20 08/23/20 08/23/20 Range/Units 16:20 06:10 11:23 BUN 57 H (9-20) mg/dL Creatinine 6.3 H (0.8-1.3) mg/dL POC Glucose 131 H 180 H (70-105) mg/dL Calcium 6.8 L (8.4-10.2) mg/dL HEART Score - HEART Score Troponin: Troponin T 0.043 ng/mL (0.00-0.029) H 08/18/20 22:47
--- NOTE | 2020-08-23 15:15 | Progress Note ---
Assessment and Plan 1. ESRD: CKD has progressed to ESRD. Patient was admitted with uremic symptoms and elevated creatinine from his baseline. CKD most likely from hypertensive nephropathy. Prior workup include SAHIL, ANCA, GBM Ab, complements, SPEP, UPEP, Hep panel and HIV were negative. [place]:Lambda ratio was elevated. Patient was advised to see Heme-Onc as outpatient. Monitor renal function. Renal prognosis is poor. Avoid nephrotoxic agents. Meds dosage based on GFR. Patient was started on hemodialysis as CKD progressed to ESRD and presented with uremia, hyperkalemia, metabolic acidosis and volume overload. Hmeodialysis: 08/19, 08/20. 2. FEN: Hyperkalemia, improved. Metabolic acidosis, s/p HD, monitor. Volume overload, improved. Monitor lytes. 3. Anemia, POA: S/p PRBC. Epogen with HD. 4. Uncontrolled HTN: Continue home meds. UF with HD. BP is better. 5. Decompensated CHF: BP and volume control. EF 65% seen on Echo 10/2018. Strict I/O, fluid restriction, low sodium diet. 6. Acute hypoxic respiratory failure, POA: 2/2 fluid overload. Supplemental O2 as needed. UF with HD. 7. Type II DM: Accu-Chek sliding scale coverage ADA diet. 8. Tobacco abuse: Smoking cessation counseling. 9. Medical non-compliance: Counseled. Outpatient HD chair at [facility]. Subjective: Pt was seen and examined at the bedside. Doing ok. Examination: General appearance: well-developed, appears stated age, appears emaciated, not in distress HEENT: ATNC, LINDSAY, hearing intact, vision intact Neck: neck supple, trachea midline Respiratory: Clear to Auscultation Heart: regular, S1S2, no murmur Gastrointestinal: Soft, normoactive bowel sounds, obese Integumentary: LE stasis changes, R leg dressing noted Neurologic: able to move extremities, bilateral claw hand, no asterixis Ext: no edema noted Hemodialysis access: R IJ tunnel catheter Subjective Date of service: 08/23/20 Principal diagnosis: CHF exacerbation, respiratory failure Objective - Vital Signs Vital signs: Vital Signs - 12hr 08/23/20 08/23/20 08/23/20 04:00 04:01 05:01 Temperature 98.3 F Pulse Rate 78 74 75 Pulse Rate [ 78 From Monitor] Respiratory 20 13 24 Rate Blood Pressure 148/46 148/46 O2 Sat by Pulse 97 96 96 Oximetry 08/23/20 08/23/20 08/23/20 06:00 07:00 07:54 Temperature Pulse Rate 68 68 Pulse Rate [ From Monitor] Respiratory 17 18 Rate Blood Pressure 138/51 138/51 O2 Sat by Pulse 96 96 96 Oximetry 08/23/20 08/23/20 08/23/20 08:00 08:01 09:01 Temperature Pulse Rate 66 67 71 Pulse Rate [ 67 From Monitor] Respiratory 22 22 14 Rate Blood Pressure 147/48 127/104 O2 Sat by Pulse 95 95 93 Oximetry 08/23/20 08/23/20 08/23/20 10:01 11:01 12:00 Temperature Pulse Rate 67 71 62 Pulse Rate [ 64 From Monitor] Respiratory 17 15 18 Rate Blood Pressure 135/37 135/37 140/51 O2 Sat by Pulse 94 96 94 Oximetry 08/23/20 08/23/20 13:00 14:00 Temperature Pulse Rate 62 66 Pulse Rate [ From Monitor] Respiratory 20 16 Rate Blood Pressure 141/54 128/47 O2 Sat by Pulse 92 95 Oximetry - Lab 08/21/20 05:06 08/23/20 06:10 Most recent lab results ABG pH 7.382 (7.320-7.450) 08/19/20 01:18 ABG O2 Saturation 98.7 (0-100) 08/19/20 01:18 Calcium 6.8 mg/dL (8.4-10.2) L 08/23/20 06:10 Phosphorus 5.20 mg/dL (2.5-4.5) H 08/18/20 21:19 Magnesium 1.80 mg/dL (1.7-2.3) 08/18/20 21:19 Medications & Allergies - Medications Allergies/Adverse Reactions: Allergies Beta-Blockers (Beta-Adrenergic Bloc Adverse Reaction (Verified 08/19/20 00:37) Anaphylaxis Home Medications: Home Medications Medication Instructions Recorded Confirmed Last Taken Type Aspirin [Aspirin BABY CHEW TAB] 81 mg PO QDAY #30 tab.chew 01/08/20 08/19/20 Unknown Rx Sodium Bicarbonate 650 mg PO TID #90 tablet 01/08/20 08/19/20 Unknown Rx Acetaminophen [Tylenol] 500 mg PO Q8HR PRN 08/19/20 08/19/20 Unknown History Furosemide [Lasix] 40 mg PO DAILY 08/19/20 08/19/20 Unknown History NIFEdipine [Nifedipine ER] 60 mg PO DAILY 08/19/20 08/19/20 Unknown History Pantoprazole Sodium 40 mg PO DAILY 08/19/20 08/19/20 Unknown History Active Medications: Generic Name Dose Route Start Last Admin Trade Name Freq PRN Reason Stop Dose Admin Acetaminophen 650 mg 08/18/20 23:24 08/20/20 05:09 Acetaminophen 325 Mg Tab PO 650 mg Q4H PRN Administration Pain MILD(1-3)/Fever >100.5/LIRA Albuterol 2.5 mg 08/18/20 23:24 Albuterol 2.5 Mg/3 Ml Nebu IH Q3HRT PRN Shortness Of Breath Aspirin 81 mg 08/19/20 10:00 08/23/20 10:04 Aspirin 81 Mg Tab Chew PO 81 mg QDAY MICHA Administration Atorvastatin Calcium 40 mg 08/19/20 22:00 08/22/20 21:59 Atorvastatin 40 Mg Tab PO 40 mg QHS MICHA Administration Dextrose 50 ml 08/18/20 23:24 Dextrose 50% In Water (25gm) 50 Ml Syringe IV Q30MIN PRN Hypoglycemia Protocol Docusate Sodium 100 mg 08/19/20 10:00 08/23/20 10:04 Docusate Sodium 100 Mg Cap PO 100 mg BID MICHA Administration Famotidine 20 mg 08/19/20 10:00 08/23/20 10:03 Famotidine 20 Mg Tab PO 20 mg DAILY MICHA Administration Folic Acid 1 mg 08/19/20 10:00 08/23/20 10:03 Folic Acid 1 Mg Tab PO 1 mg QDAY MICHA Administration Furosemide 40 mg 08/20/20 10:00 08/23/20 10:03 Furosemide 40 Mg Tab PO 40 mg DAILY MICHA Administration Heparin Sodium (Porcine) 3,000 unit 08/21/20 11:00 Heparin 10,000 Units/10 Ml Vial IV ERICH PRN hemodialysis Hydralazine HCl 10 mg 08/20/20 09:36 08/23/20 00:05 Hydralazine 20 Mg/1 Ml Inj IV 10 mg Q4HR PRN Administration Hypertension Sodium Chloride 100 mls @ 999 mls/hr 08/19/20 10:39 Nacl 0.9% IV ERICH PRN Hypotension Insulin Human Lispro 0 unit 08/19/20 07:30 08/23/20 11:37 Insulin Lispro 100 Unit/Ml SUB-Q 2 unit ACHS MIHCA Administration Protocol Multivitamins 1 each 08/19/20 10:00 08/23/20 10:03 Multivitamins ,Therapeutic Tab PO 1 each QDAY MICHA Administration Nicotine 14 mg 08/19/20 10:00 08/23/20 10:15 Nicotine 14 Mg/24 Hr Patch TD Not Given QDAY MICHA Nifedipine 30 mg 08/20/20 10:00 08/23/20 10:04 Nifedipine Xl 30 Mg Tab PO 30 mg BID MICHA Administration Nitroglycerin 0.4 mg 08/18/20 23:24 Nitroglycerin 0.4 Mg Tab Subl SL .Q5MIN PRN Chest Pain Ondansetron HCl 4 mg 08/18/20 23:24 Ondansetron 4 Mg/2 Ml Inj IV Q6H PRN Nausea And Vomiting Sodium Bicarbonate 650 mg 08/20/20 14:00 08/23/20 14:50 Sodium Bicarbonate 650 Mg Tab PO 650 mg TID MICHA Administration Sodium Chloride 10 ml 08/19/20 10:00 08/23/20 10:04 Sodium Chloride 0.9% 10 Ml Flush Syringe IV 10 ml BID MICHA Administration Sodium Chloride 10 ml 08/18/20 23:24 Sodium Chloride 0.9% 10 Ml Flush Syringe IV PRN PRN LINE FLUSH
[2020-08-23] MEDS: ACETAMINOPHEN 325 MG TAB PO PRN (22:03)
--- NOTE | 2020-08-24 07:31 | Progress Note ---
Assessment and Plan 1. ESRD: CKD has progressed to ESRD. Patient was admitted with uremic symptoms and elevated creatinine from his baseline. CKD most likely from hypertensive nephropathy. Prior workup include SAHIL, ANCA, GBM Ab, complements, SPEP, UPEP, Hep panel and HIV were negative. [place]:Lambda ratio was elevated. Patient was advised to see Heme-Onc as outpatient. Monitor renal function. Renal prognosis is poor. Avoid nephrotoxic agents. Meds dosage based on GFR. Patient was started on hemodialysis as CKD progressed to ESRD and presented with uremia, hyperkalemia, metabolic acidosis and volume overload. Hmeodialysis: 08/19, 08/20, 08/24. 2. FEN: Hyperkalemia, improved. Metabolic acidosis, s/p HD, monitor. Volume overload, improved. Monitor lytes. 3. Anemia, POA: S/p PRBC. Epogen with HD. 4. Uncontrolled HTN: Continue home meds. UF with HD. BP is better. 5. Decompensated CHF: BP and volume control. EF 65% seen on Echo 10/2018. Strict I/O, fluid restriction, low sodium diet. 6. Acute hypoxic respiratory failure, POA: 2/2 fluid overload. Supplemental O2 as needed. UF with HD. 7. Type II DM: Accu-Chek sliding scale coverage ADA diet. 8. Tobacco abuse: Smoking cessation counseling. 9. Medical non-compliance: Counseled. Outpatient HD chair at [facility]. Subjective: Pt was seen and examined at the bedside. Doing ok. Examination: General appearance: well-developed, appears stated age, appears emaciated, not in distress HEENT: ATNC, LINDSAY, hearing intact, vision intact Neck: neck supple, trachea midline Respiratory: Clear to Auscultation Heart: regular, S1S2, no murmur Gastrointestinal: Soft, normoactive bowel sounds, obese Integumentary: LE stasis changes, R leg dressing noted Neurologic: able to move extremities, bilateral claw hand, no asterixis Ext: no edema noted Hemodialysis access: R IJ tunnel catheter Subjective Date of service: 08/24/20 Principal diagnosis: CHF exacerbation, respiratory failure Objective - Vital Signs Vital signs: Vital Signs - 12hr 08/23/20 08/23/20 08/23/20 20:00 20:01 21:00 Temperature 98.2 F Pulse Rate 61 64 62 Pulse Rate [ 61 From Monitor] Respiratory 12 18 Rate Respiratory Rate [Neck] Blood Pressure 169/70 167/64 O2 Sat by Pulse 98 100 Oximetry 08/23/20 08/23/20 08/23/20 22:00 22:03 22:23 Temperature Pulse Rate 63 Pulse Rate [ From Monitor] Respiratory 17 15 Rate Respiratory 18 Rate [Neck] Blood Pressure 164/64 O2 Sat by Pulse 96 Oximetry 08/23/20 08/23/20 08/24/20 22:37 23:00 00:12 Temperature Pulse Rate 63 62 Pulse Rate [ From Monitor] Respiratory 21 19 Rate Respiratory Rate [Neck] Blood Pressure 164/64 164/64 160/62 O2 Sat by Pulse 98 98 80 L Oximetry 08/24/20 08/24/20 08/24/20 00:20 05:12 06:52 Temperature 98.5 F 98.4 F 98.1 F Pulse Rate 56 L 59 L 58 L Pulse Rate [ From Monitor] Respiratory 6 L 16 16 Rate Respiratory Rate [Neck] Blood Pressure 167/54 123/47 160/56 O2 Sat by Pulse 97 96 98 Oximetry - Lab 08/21/20 05:06 08/23/20 06:10 Most recent lab results ABG pH 7.382 (7.320-7.450) 08/19/20 01:18 ABG O2 Saturation 98.7 (0-100) 08/19/20 01:18 Calcium 6.8 mg/dL (8.4-10.2) L 08/23/20 06:10 Phosphorus 5.20 mg/dL (2.5-4.5) H 08/18/20 21:19 Magnesium 1.80 mg/dL (1.7-2.3) 08/18/20 21:19 Medications & Allergies - Medications Allergies/Adverse Reactions: Allergies Beta-Blockers (Beta-Adrenergic Bloc Adverse Reaction (Verified 08/19/20 00:37) Anaphylaxis Home Medications: Home Medications Medication Instructions Recorded Confirmed Last Taken Type Aspirin [Aspirin BABY CHEW TAB] 81 mg PO QDAY #30 tab.chew 01/08/20 08/19/20 Unknown Rx Sodium Bicarbonate 650 mg PO TID #90 tablet 01/08/20 08/19/20 Unknown Rx Acetaminophen [Tylenol] 500 mg PO Q8HR PRN 08/19/20 08/19/20 Unknown History Furosemide [Lasix] 40 mg PO DAILY 08/19/20 08/19/20 Unknown History NIFEdipine [Nifedipine ER] 60 mg PO DAILY 08/19/20 08/19/20 Unknown History Pantoprazole Sodium 40 mg PO DAILY 08/19/20 08/19/20 Unknown History Active Medications: Generic Name Dose Route Start Last Admin Trade Name Freq PRN Reason Stop Dose Admin Acetaminophen 650 mg 08/18/20 23:24 08/23/20 22:03 Acetaminophen 325 Mg Tab PO 650 mg Q4H PRN Administration Pain MILD(1-3)/Fever >100.5/LIRA Albuterol 2.5 mg 08/18/20 23:24 Albuterol 2.5 Mg/3 Ml Nebu IH Q3HRT PRN Shortness Of Breath Aspirin 81 mg 08/19/20 10:00 08/23/20 10:04 Aspirin 81 Mg Tab Chew PO 81 mg QDAY MICHA Administration Atorvastatin Calcium 40 mg 08/19/20 22:00 08/23/20 22:03 Atorvastatin 40 Mg Tab PO 40 mg QHS MICHA Administration Dextrose 50 ml 08/18/20 23:24 Dextrose 50% In Water (25gm) 50 Ml Syringe IV Q30MIN PRN Hypoglycemia Protocol Docusate Sodium 100 mg 08/19/20 10:00 08/23/20 22:03 Docusate Sodium 100 Mg Cap PO 100 mg BID MICHA Administration Famotidine 20 mg 08/19/20 10:00 08/23/20 10:03 Famotidine 20 Mg Tab PO 20 mg DAILY MICHA Administration Folic Acid 1 mg 08/19/20 10:00 08/23/20 10:03 Folic Acid 1 Mg Tab PO 1 mg QDAY MICHA Administration Furosemide 40 mg 08/20/20 10:00 08/23/20 10:03 Furosemide 40 Mg Tab PO 40 mg DAILY MICHA Administration Heparin Sodium (Porcine) 3,000 unit 08/21/20 11:00 Heparin 10,000 Units/10 Ml Vial IV ERICH PRN hemodialysis Hydralazine HCl 10 mg 08/20/20 09:36 08/23/20 00:05 Hydralazine 20 Mg/1 Ml Inj IV 10 mg Q4HR PRN Administration Hypertension Sodium Chloride 100 mls @ 999 mls/hr 08/19/20 10:39 Nacl 0.9% IV ERICH PRN Hypotension Insulin Human Lispro 0 unit 08/19/20 07:30 08/23/20 22:21 Insulin Lispro 100 Unit/Ml SUB-Q 2 unit ACHS MICHA Administration Protocol Multivitamins 1 each 08/19/20 10:00 08/23/20 10:03 Multivitamins ,Therapeutic Tab PO 1 each QDAY MICHA Administration Nicotine 14 mg 08/19/20 10:00 08/23/20 10:15 Nicotine 14 Mg/24 Hr Patch TD Not Given QDAY MICHA Nifedipine 30 mg 08/20/20 10:00 08/23/20 22:03 Nifedipine Xl 30 Mg Tab PO 30 mg BID MICHA Administration Nitroglycerin 0.4 mg 08/18/20 23:24 Nitroglycerin 0.4 Mg Tab Subl SL .Q5MIN PRN Chest Pain Ondansetron HCl 4 mg 08/18/20 23:24 Ondansetron 4 Mg/2 Ml Inj IV Q6H PRN Nausea And Vomiting Sodium Bicarbonate 650 mg 08/20/20 14:00 08/23/20 22:03 Sodium Bicarbonate 650 Mg Tab PO 650 mg TID MICHA Administration Sodium Chloride 10 ml 08/19/20 10:00 08/23/20 22:09 Sodium Chloride 0.9% 10 Ml Flush Syringe IV 10 ml BID MICHA Administration Sodium Chloride 10 ml 08/18/20 23:24 Sodium Chloride 0.9% 10 Ml Flush Syringe IV PRN PRN LINE FLUSH
[2020-08-24] MEDS: INSULIN LISPRO 100 UNIT/ML SUB-Q SCH ×4 (08:17→21:15)
--- NOTE | 2020-08-24 08:47 | Progress Note ---
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 Normal LVEF, 65% by echo 10/2018. Normal coronaries by [facility] in 2013. Conservative cardiac management. Subjective Date of service: 08/24/20 Principal diagnosis: CHF exacerbation, respiratory failure Interval history: In dialysis. Patient is resting in bed and appears comfortable. He has no cardiac complaints. Objective Vital Signs Temp Pulse Pulse Resp Resp BP Pulse Ox 08/24/20 06:52 98.1 F 58 L 16 160/56 98 08/24/20 05:12 98.4 F 59 L 16 123/47 96 08/24/20 00:20 98.5 F 56 L 6 L 167/54 97 08/24/20 00:12 160/62 80 L 08/23/20 23:00 62 19 164/64 98 08/23/20 22:37 63 21 164/64 98 08/23/20 22:23 18 08/23/20 22:03 15 08/23/20 22:00 63 17 164/64 96 08/23/20 21:00 62 18 167/64 100 08/23/20 20:01 64 12 169/70 98 08/23/20 20:00 98.2 F 61 61 08/23/20 19:01 61 21 158/63 96 08/23/20 18:01 62 18 98/65 94 08/23/20 17:00 63 13 121/64 99 08/23/20 16:01 61 15 120/51 97 08/23/20 16:00 98.6 F 61 61 15 97 08/23/20 15:01 62 15 133/49 97 08/23/20 14:00 66 16 128/47 95 08/23/20 13:00 62 20 141/54 92 08/23/20 12:00 62 64 18 140/51 94 08/23/20 11:01 71 15 135/37 96 08/23/20 10:01 67 17 135/37 94 08/23/20 09:01 71 14 127/104 93 - Physical Examination General: No Apparent Distress HEENT: Positive: PERRL Neck: Positive: trachea midline Cardiac: Positive: Reg Rate and Rhythm Lungs: Positive: Decreased Breath Sounds Neuro: Positive: Grossly Intact Extremities: Absent: edema
[2020-08-24] MEDS: SODIUM BICARBONATE 650 MG TAB PO SCH ×3 (09:02→21:14)
[2020-08-24] MEDS: EPOETIN ALFA-EPBX 20,000 UNIT/1 ML VIAL SUB-Q PRN (11:42)
[2020-08-24] MEDS: NICOTINE 14 MG/24 HR PATCH TD SCH (13:08)
[2020-08-24] MEDS: FAMOTIDINE 20 MG TAB PO SCH (13:08)
[2020-08-24] MEDS: FOLIC ACID 1 MG TAB PO SCH (13:09)
[2020-08-24] MEDS: ASPIRIN 81 MG TAB CHEW PO SCH (13:09)
[2020-08-24] MEDS: DOCUSATE SODIUM 100 MG CAP PO SCH ×2 (13:09→21:14)
[2020-08-24] MEDS: MULTIVITAMINS ,THERAPEUTIC TAB PO SCH (13:09)
[2020-08-24] MEDS: NIFEdipine XL 30 MG TAB PO SCH ×2 (13:09→21:14)
[2020-08-24] MEDS: FUROSEMIDE 40 MG TAB PO SCH (13:09)
--- NOTE | 2020-08-24 17:36 | Progress Note ---
Assessment and Plan Assessment and plan: --CKD changed to ESRD Nephrology initiated hemodialysis Hemodialysis per schedule/as needed Case management setting up outpatient HD placement Possible discharge in 1 to 2 days if stable and cleared by nephrology --Hypertensive urgency present on admission Moderate control ,Continue current antihypertensives and as needed IV hydralazine --Acute hyperkalemia Resolved after HD closely monitor electrolytes --Fluid overload; Secondary to ESRD Resolved HD per schedule --Anemia of chronic kidney disease; Hb 6.8, received 1 unit of PRBC, Hb improved to 9.1 today Closely monitor H&H, transfuse additional PRBC as needed --Acute Exacerbation CHF/fluid overload due to ESRD Continue antifailure medications, nephrology initiating HD EF 65% seen on Echo 10/2018 -CXR most consistent with congestive heart failure and interval development of bilateral interstitial edema -Patient has had multiple MPI stress testing, most recent was 03/2019 which was negative for ischemia -Cardiology evaluation noted and appreciated No plans of ischemia work-up, medical management --Acute hypoxic respiratory failure Due to fluid overload, acute on chronic congestive heart failure Treat the underlying cause, symptoms significantly improved --Type II DM Accu-Chek sliding scale coverage ADA diet Insulin as needed, HbA1c 4.9 --Tobacco abuse Smoking cessation counseling Advised nicotine patch as needed --DVT prophylaxis; Heparin renal dose We will closely monitor the patient and adjust management as needed Plan of care reviewed with the patient and his nurse I also discussed with dish network installer Dr. Ann Discussed with [facility] primary care physician Dr. Mock Advance Directives: No VTE prophylaxis?: Chemical, Mechanical Plan of care discussed with patient/family: Yes Brief history and hospital course; Patient was admitted with acute hypoxic respiratory failure due to fluid overload due to chronic kidney disease Nephrology evaluated, initiated hemodialysis after HD catheter placement, patient symptoms significantly improved Cardiology evaluated the patient, no ischemia work-up planned, medical management. If nephrology plans long-term HD Case management need to set up outpatient HD placement 08/20/2020; Patient feels better, received HD yesterday Nephrology cardiology following, blood pressures fluctuating Medications optimized I discussed with [facility] PMD Dr. Mock[on 11/19/2020] Resumed service; 08/24/2020; patient feels better, received hemodialysis Possible discharge in 1 to 2 days after outpatient HD chair is set up Discharge planning per case management History Interval history: I have seen and examined the patient at the bedside Patient's chart and medications reviewed Patient received hemodialysis today No new complaints Vital signs noted Case management setting up outpatient HD chair Hospitalist Physical - Constitutional Vitals: Temp Pulse Resp BP Pulse Ox 97.5 F L 55 L 18 128/53 98 08/24/20 12:15 08/24/20 16:24 08/24/20 12:15 08/24/20 12:15 08/24/20 09:18 General appearance: Present: no acute distress, well-nourished - EENT Eyes: Present: PERRL, EOM intact - Neck Neck: Present: supple, normal ROM - Respiratory Respiratory effort: normal Respiratory: bilateral: diminished, negative: rales, rhonchi, wheezing - Cardiovascular Rhythm: regular Heart Sounds: Present: S1 & S2 - Extremities Extremities: no ischemia, No edema - Abdominal General gastrointestinal: soft, non-tender, non-distended, normal bowel sounds - Integumentary Integumentary: Present: clear, warm - Psychiatric Psychiatric: appropriate mood/affect, cooperative - Neurologic Neurologic: moves all extremities HEART Score - HEART Score Troponin: Troponin T 0.043 ng/mL (0.00-0.029) H 08/18/20 22:47 Results - Labs CBC & Chem 7: 08/21/20 05:06 08/23/20 06:10 Labs: Laboratory Last Values WBC 4.9 K/mm3 (4.5-11.0) 08/20/20 07:05 RBC 2.69 M/mm3 (3.65-5.03) L 08/20/20 07:05 Hgb 9.1 gm/dl (11.8-15.2) L 08/21/20 05:06 Hct 27.1 % (35.5-45.6) L 08/21/20 05:06 MCV 89 fl (84-94) 08/20/20 07:05 MCH 30 pg (28-32) 08/20/20 07:05 MCHC 34 % (32-34) 08/20/20 07:05 RDW 14.9 % (13.2-15.2) 08/20/20 07:05 Plt Count 231 K/mm3 (140-440) 08/20/20 07:05 Lymph % (Auto) 20.1 % (13.4-35.0) 08/20/20 07:05 Citrus % (Auto) 9.9 % (0.0-7.3) H 08/20/20 07:05 Eos % (Auto) 6.8 % (0.0-4.3) H 08/20/20 07:05 Baso % (Auto) 1.1 % (0.0-1.8) 08/20/20 07:05 Lymph # (Auto) 1.0 K/mm3 (1.2-5.4) L 08/20/20 07:05 Citrus # (Auto) 0.5 K/mm3 (0.0-0.8) 08/20/20 07:05 Eos # (Auto) 0.3 K/mm3 (0.0-0.4) 08/20/20 07:05 Baso # (Auto) 0.1 K/mm3 (0.0-0.1) 08/20/20 07:05 Seg Neutrophils % 62.1 % (40.0-70.0) 08/20/20 07:05 Seg Neutrophils # 3.1 K/mm3 (1.8-7.7) 08/20/20 07:05 ABG pH 7.382 (7.320-7.450) 08/19/20 01:18 POC ABG pCO2 27.8 mmHg (32.0-48.0) L 08/19/20 01:18 POC ABG pO2 114.3 mmHg (83-108) H 08/19/20 01:18 POC ABG HCO3 16.2 08/19/20 01:18 ABG O2 Saturation 98.7 (0-100) 08/19/20 01:18 POC ABG Base Excess -8.1 08/19/20 01:18 ABG Hemoglobin 7.2 (12.0-17.5) L 08/19/20 01:18 ABG Oxyhemoglobin 97.0 (94-98) 08/19/20 01:18 ABG Methemoglobin 0.3 (0.0-1.5) 08/19/20 01:18 ABG Sodium 144.1 mmol/L (136.0-145.0) 08/19/20 01:18 ABG Potassium 5.4 mmol/L (3.40-4.50) H 08/19/20 01:18 ABG Chloride 113.0 mmol/L (98-107) H 08/19/20 01:18 ABG Glucose 90 mg/dL (65-95) 08/19/20 01:18 Carboxyhemoglobin 1.4 (0.5-1.5) 08/19/20 01:18 FiO2 % 28.0 08/19/20 01:18 Sodium 140 mmol/L (137-145) 08/23/20 06:10 Potassium 3.9 mmol/L (3.6-5.0) 08/23/20 06:10 Chloride 100.1 mmol/L (98-107) 08/23/20 06:10 Carbon Dioxide 26 mmol/L (22-30) 08/23/20 06:10 Anion Gap 18 mmol/L 08/23/20 06:10 BUN 57 mg/dL (9-20) H 08/23/20 06:10 Creatinine 6.3 mg/dL (0.8-1.3) H 08/23/20 06:10 Estimated GFR 11 ml/min 08/23/20 06:10 BUN/Creatinine Ratio 9 % 08/23/20 06:10 Glucose 97 mg/dL (75-100) 08/23/20 06:10 POC Glucose 61 mg/dL (70-105) L 08/24/20 15:35 Hemoglobin A1c 4.9 % (4-6) 08/18/20 21:19 Calcium 6.8 mg/dL (8.4-10.2) L 08/23/20 06:10 Phosphorus 5.20 mg/dL (2.5-4.5) H 08/18/20 21:19 Magnesium 1.80 mg/dL (1.7-2.3) 08/18/20 21:19 Total Bilirubin 0.20 mg/dL (0.1-1.2) 08/18/20 21:19 AST 13 units/L (5-40) 08/18/20 21:19 ALT 10 units/L (7-56) 08/18/20 21:19 Alkaline Phosphatase 75 units/L (35-129) 08/18/20 21:19 Troponin T 0.043 ng/mL (0.00-0.029) H 08/18/20 22:47 NT-Pro-B Natriuret Pep 26735 pg/mL (0-900) H 08/18/20 21:19 Total Protein 6.9 g/dL (6.3-8.2) 08/18/20 21:19 Albumin 3.8 g/dL (3.9-5) L 08/18/20 21:19 Albumin/Globulin Ratio 1.2 % 08/18/20 21:19 Triglycerides 46 mg/dL (2-149) 08/18/20 21:19 Cholesterol 103 mg/dL (50-199) 08/18/20 21:19 LDL Cholesterol Direct 62 mg/dL (50-130) 08/18/20 21:19 HDL Cholesterol 44 mg/dL (40-59) 08/18/20 21:19 Cholesterol/HDL Ratio 2.34 % 08/18/20 21:19 Arterial Blood Glucose 90 mg/dL (65-95) 08/19/20 01:18 Arterial Blood Ionized Calcium 3.9 mg/dL (4.6-5.3) L 08/19/20 01:18 Nasal Screen MRSA (PCR) Negative (Negative) 08/19/20 Unknown Coronavirus (PCR) Negative (Negative) 08/21/20 09:41 Hepatitis A IgM Ab Non-reactive (NonReactive) 08/19/20 11:37 Hep Bs Antigen Non-reactive (Negative) 08/19/20 11:37 Hep B Core IgM Ab Non-reactive (NonReactive) 08/19/20 11:37 Hepatitis C Antibody Non-reactive (NonReactive) 08/19/20 11:37 Blood Type O POSITIVE 08/18/20 22:47 Antibody Screen Negative 08/18/20 22:47 Crossmatch See Detail 08/18/20 22:47 Marrufo/IV: Voiding Method Condom Catheter Active Medications - Current Medications Current Medications: Generic Name Dose Route Start Last Admin Trade Name Freq PRN Reason Stop Dose Admin Acetaminophen 650 mg 08/18/20 23:24 08/23/20 22:03 Acetaminophen 325 Mg Tab PO 650 mg Q4H PRN Administration Pain MILD(1-3)/Fever >100.5/LIRA Albuterol 2.5 mg 08/18/20 23:24 Albuterol 2.5 Mg/3 Ml Nebu IH Q3HRT PRN Shortness Of Breath Aspirin 81 mg 08/19/20 10:00 08/24/20 13:09 Aspirin 81 Mg Tab Chew PO 81 mg QDAY MICHA Administration Atorvastatin Calcium 40 mg 08/19/20 22:00 08/23/20 22:03 Atorvastatin 40 Mg Tab PO 40 mg QHS MICHA Administration Dextrose 50 ml 08/18/20 23:24 Dextrose 50% In Water (25gm) 50 Ml Syringe IV Q30MIN PRN Hypoglycemia Protocol Docusate Sodium 100 mg 08/19/20 10:00 08/24/20 13:09 Docusate Sodium 100 Mg Cap PO 100 mg BID MICHA Administration Famotidine 20 mg 08/19/20 10:00 08/24/20 13:08 Famotidine 20 Mg Tab PO 20 mg DAILY MICHA Administration Folic Acid 1 mg 08/19/20 10:00 08/24/20 13:09 Folic Acid 1 Mg Tab PO 1 mg QDAY MICHA Administration Furosemide 40 mg 08/20/20 10:00 08/24/20 13:09 Furosemide 40 Mg Tab PO 40 mg DAILY MICHA Administration Heparin Sodium (Porcine) 3,000 unit 08/21/20 11:00 Heparin 10,000 Units/10 Ml Vial IV ERICH PRN hemodialysis Hydralazine HCl 10 mg 08/20/20 09:36 08/23/20 00:05 Hydralazine 20 Mg/1 Ml Inj IV 10 mg Q4HR PRN Administration Hypertension Sodium Chloride 100 mls @ 999 mls/hr 08/19/20 10:39 Nacl 0.9% IV ERICH PRN Hypotension Insulin Human Lispro 0 unit 08/19/20 07:30 08/24/20 16:23 Insulin Lispro 100 Unit/Ml SUB-Q Not Given ACHS [facility] Protocol Multivitamins 1 each 08/19/20 10:00 08/24/20 13:09 Multivitamins ,Therapeutic Tab PO 1 each QDAY MICHA Administration Nicotine 14 mg 08/19/20 10:00 08/24/20 13:08 Nicotine 14 Mg/24 Hr Patch TD 14 mg QDAY MICHA Administration Nifedipine 30 mg 08/20/20 10:00 08/24/20 13:09 Nifedipine Xl 30 Mg Tab PO 30 mg BID MICHA Administration Nitroglycerin 0.4 mg 08/18/20 23:24 Nitroglycerin 0.4 Mg Tab Subl SL .Q5MIN PRN Chest Pain Ondansetron HCl 4 mg 08/18/20 23:24 Ondansetron 4 Mg/2 Ml Inj IV Q6H PRN Nausea And Vomiting Sodium Bicarbonate 650 mg 08/20/20 14:00 08/24/20 13:09 Sodium Bicarbonate 650 Mg Tab PO 650 mg TID MICHA Administration Sodium Chloride 10 ml 08/19/20 10:00 08/24/20 13:09 Sodium Chloride 0.9% 10 Ml Flush Syringe IV 10 ml BID MICHA Administration Sodium Chloride 10 ml 08/18/20 23:24 Sodium Chloride 0.9% 10 Ml Flush Syringe IV PRN PRN LINE FLUSH Nutrition/Malnutrition Assess - Dietary Evaluation Nutrition/Malnutrition Findings: Nutrition Notes Start: 08/19/20 11:55 Freq: Status: Active Protocol: Document 08/23/20 12:07 (Rec: 08/23/20 12:10 [email or web address]) Nutrition Notes Initial or Follow up Brief Note Current Diagnosis CKD (stage V CKD),Diabetes, Hypertension,Heart Failure, Stroke Current Diet Renal, consistent CHO, mech soft Subjective/Other Information FU for stable intakes. Pt reports enjoying the ONS and wants to continue it. Pt tolerating 100% of meals. Pt sister makes all of his meals. Pt given HD diet education and encouraged him to have sister call with any questions . #1 Nutrition Diagnosis Food and nutrition-related knowledge deficit Etiology no prior ESRD - HD diet education As Evidenced by Signs and Symptoms pt unsure of what/how to eat with HD Nutrition Intervention Teaching Recipient Patient Learning Readiness Good Teaching Methods Discussion,Handout Response to Teaching Verbalize understanding Education Handouts Provided ESRD on HD Nutrition Therapy Barriers to Learning Visual RD phone number provided Yes Patient aware of follow up options Yes Actions To Overcome Barriers Other Revisit per MD consult or patient Sign Off request:
[2020-08-25] MEDS: ACETAMINOPHEN 325 MG TAB PO PRN (05:23)
[2020-08-25] MEDS: INSULIN LISPRO 100 UNIT/ML SUB-Q SCH ×2 (07:41→12:22)
[2020-08-25 07:44] VITALS: BP 138/51
[2020-08-25] MEDS: SODIUM BICARBONATE 650 MG TAB PO SCH ×2 (08:45→13:23)
[2020-08-25] MEDS: FAMOTIDINE 20 MG TAB PO SCH (09:01)
[2020-08-25] MEDS: NICOTINE 14 MG/24 HR PATCH TD SCH (09:01)
[2020-08-25] MEDS: DOCUSATE SODIUM 100 MG CAP PO SCH (09:01)
[2020-08-25] MEDS: ASPIRIN 81 MG TAB CHEW PO SCH (09:01)
[2020-08-25] MEDS: NIFEdipine XL 30 MG TAB PO SCH (09:01)
[2020-08-25] MEDS: FOLIC ACID 1 MG TAB PO SCH (09:01)
[2020-08-25] MEDS: MULTIVITAMINS ,THERAPEUTIC TAB PO SCH (09:01)
[2020-08-25] MEDS: FUROSEMIDE 40 MG TAB PO SCH (09:01)
--- NOTE | 2020-08-25 09:17 | Progress Note ---
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 Normal LVEF, 65% by echo 10/2018. Normal coronaries by [facility] in 2013. Conservative cardiac management. Subjective Date of service: 08/25/20 Principal diagnosis: CHF exacerbation, respiratory failure Interval history: No interval cardiac changes. Objective Vital Signs Temp Pulse Pulse Pulse Resp Resp BP 08/25/20 08:32 60 60 17 08/25/20 07:24 98.6 F 58 L 20 138/51 08/25/20 04:07 100.1 F H 68 18 08/25/20 04:00 63 08/25/20 00:00 61 08/24/20 23:17 99.7 F H 60 18 08/24/20 21:57 08/24/20 20:00 67 08/24/20 19:38 99.2 F 62 18 08/24/20 16:24 55 L 08/24/20 15:32 129/43 08/24/20 15:30 98.3 F 59 L 20 124/40 08/24/20 12:15 97.5 F L 55 L 18 128/53 08/24/20 12:00 55 L 106/42 08/24/20 11:45 55 L 98/44 08/24/20 11:30 58 L 107/46 08/24/20 11:15 59 L 129/58 08/24/20 11:00 60 103/52 08/24/20 10:45 58 L 108/50 08/24/20 10:30 57 L 108/52 08/24/20 10:15 60 115/53 08/24/20 10:00 57 L 18 103/47 08/24/20 09:45 58 L 118/45 08/24/20 09:30 58 L 144/52 08/24/20 09:18 56 L 147/46 BP Pulse Ox 08/25/20 08:32 97 08/25/20 07:24 95 08/25/20 04:07 132/58 97 08/25/20 04:00 08/25/20 00:00 08/24/20 23:17 135/43 96 08/24/20 21:57 97 08/24/20 20:00 08/24/20 19:38 143/53 97 08/24/20 16:24 08/24/20 15:32 08/24/20 15:30 98 08/24/20 12:15 08/24/20 12:00 08/24/20 11:45 08/24/20 11:30 08/24/20 11:15 08/24/20 11:00 08/24/20 10:45 08/24/20 10:30 08/24/20 10:15 08/24/20 10:00 08/24/20 09:45 08/24/20 09:30 08/24/20 09:18 98 - Physical Examination General: No Apparent Distress HEENT: Positive: PERRL Neck: Positive: trachea midline Cardiac: Positive: Reg Rate and Rhythm Lungs: Positive: Decreased Breath Sounds Neuro: Positive: Grossly Intact Abdomen: Positive: Soft Extremities: Absent: edema
--- NOTE | 2020-08-25 10:18 | Progress Note ---
Assessment and Plan 1. ESRD: CKD has progressed to ESRD. Patient was admitted with uremic symptoms and elevated creatinine from his baseline. CKD most likely from hypertensive nephropathy. Prior workup include SAHIL, ANCA, GBM Ab, complements, SPEP, UPEP, Hep panel and HIV were negative. [place]:Lambda ratio was elevated. Patient was advised to see Heme-Onc as outpatient. Monitor renal function. Renal prognosis is poor. Avoid nephrotoxic agents. Meds dosage based on GFR. Patient was started on hemodialysis as CKD progressed to ESRD and presented with uremia, hyperkalemia, metabolic acidosis and volume overload. Hmeodialysis: 08/19, 08/20, 08/24. 2. FEN: Hyperkalemia, improved. Metabolic acidosis, s/p HD, monitor. Volume overload, improved. Monitor lytes. 3. Anemia, POA: S/p PRBC. Epogen with HD. 4. Uncontrolled HTN: Continue home meds. UF with HD. BP is better. 5. Decompensated CHF: BP and volume control. EF 65% seen on Echo 10/2018. Strict I/O, fluid restriction, low sodium diet. 6. Acute hypoxic respiratory failure, POA: 2/2 fluid overload. Supplemental O2 as needed. UF with HD. 7. Type II DM: Accu-Chek sliding scale coverage ADA diet. 8. Tobacco abuse: Smoking cessation counseling. 9. Medical non-compliance: Counseled. Outpatient HD chair at [facility]. Subjective: Pt was seen and examined at the bedside. Doing ok. Examination: General appearance: well-developed, appears stated age, appears emaciated, not in distress HEENT: ATNC, [place], hearing intact, vision intact Neck: neck supple, trachea midline Respiratory: Clear to Auscultation Heart: regular, S1S2, no murmur Gastrointestinal: Soft, normoactive bowel sounds, obese Integumentary: LE stasis changes, R leg dressing noted Neurologic: able to move extremities, bilateral claw hand, no asterixis Ext: no edema noted Hemodialysis access: R IJ tunnel catheter Subjective Date of service: 08/25/20 Principal diagnosis: CHF exacerbation, respiratory failure Objective - Vital Signs Vital signs: Vital Signs - 12hr 08/24/20 08/25/20 08/25/20 23:17 00:00 04:00 Temperature 99.7 F H Pulse Rate 60 61 63 Pulse Rate [ Apical] Pulse Rate [ From Monitor] Respiratory 18 Rate Blood Pressure Blood Pressure 135/43 [Left] O2 Sat by Pulse 96 Oximetry 08/25/20 08/25/20 08/25/20 04:07 07:24 08:32 Temperature 100.1 F H 98.6 F Pulse Rate 68 58 L Pulse Rate [ 60 Apical] Pulse Rate [ 60 From Monitor] Respiratory 18 20 17 Rate Blood Pressure 138/51 Blood Pressure 132/58 [Left] O2 Sat by Pulse 97 95 97 Oximetry - Lab 08/21/20 05:06 08/23/20 06:10 Most recent lab results ABG pH 7.382 (7.320-7.450) 08/19/20 01:18 ABG O2 Saturation 98.7 (0-100) 08/19/20 01:18 Calcium 6.8 mg/dL (8.4-10.2) L 08/23/20 06:10 Phosphorus 5.20 mg/dL (2.5-4.5) H 08/18/20 21:19 Magnesium 1.80 mg/dL (1.7-2.3) 08/18/20 21:19 Medications & Allergies - Medications Allergies/Adverse Reactions: Allergies Beta-Blockers (Beta-Adrenergic Bloc Adverse Reaction (Verified 08/19/20 00:37) Anaphylaxis Home Medications: Home Medications Medication Instructions Recorded Confirmed Last Taken Type Aspirin [Aspirin BABY CHEW TAB] 81 mg PO QDAY #30 tab.chew 01/08/20 08/19/20 Unknown Rx Acetaminophen [Acetaminophen TAB] 500 mg PO Q8HR PRN 08/19/20 08/19/20 Unknown History AtorvaSTATin [Lipitor] 40 mg PO QHS #30 tablet 08/25/20 Unknown Rx Famotidine [Pepcid] 20 mg PO DAILY #30 tablet 08/25/20 Unknown Rx Folic Acid [Folvite] 1 mg PO QDAY #30 tablet 08/25/20 Unknown Rx Furosemide [Lasix TAB] 40 mg PO QDAY #30 tablet 08/25/20 Unknown Rx Multivitamin Tab [Multiple Vitamin 1 each PO QDAY #30 tablet 08/25/20 Unknown Rx TAB (Theragran)] NIFEdipine XL [Procardia Xl] 30 mg PO BID #60 tablet 08/25/20 Unknown Rx Nicotine [Habitrol] 14 mg TD QDAY #30 patch 08/25/20 Unknown Rx Sodium Bicarbonate 650 mg PO TID #90 tablet 08/25/20 Unknown Rx Active Medications: Generic Name Dose Route Start Last Admin Trade Name Freq PRN Reason Stop Dose Admin Acetaminophen 650 mg 08/18/20 23:24 08/25/20 05:23 Acetaminophen 325 Mg Tab PO 650 mg Q4H PRN Administration Pain MILD(1-3)/Fever >100.5/LIRA Albuterol 2.5 mg 08/18/20 23:24 Albuterol 2.5 Mg/3 Ml Nebu IH Q3HRT PRN Shortness Of Breath Aspirin 81 mg 08/19/20 10:00 08/25/20 09:01 Aspirin 81 Mg Tab Chew PO 81 mg QDAY MICHA Administration Atorvastatin Calcium 40 mg 08/19/20 22:00 08/24/20 21:14 Atorvastatin 40 Mg Tab PO 40 mg QHS MICHA Administration Dextrose 50 ml 08/18/20 23:24 Dextrose 50% In Water (25gm) 50 Ml Syringe IV Q30MIN PRN Hypoglycemia Protocol Docusate Sodium 100 mg 08/19/20 10:00 08/25/20 09:01 Docusate Sodium 100 Mg Cap PO 100 mg BID MICHA Administration Famotidine 20 mg 08/19/20 10:00 08/25/20 09:01 Famotidine 20 Mg Tab PO 20 mg DAILY MICHA Administration Folic Acid 1 mg 08/19/20 10:00 08/25/20 09:01 Folic Acid 1 Mg Tab PO 1 mg QDAY MICHA Administration Furosemide 40 mg 08/20/20 10:00 08/25/20 09:01 Furosemide 40 Mg Tab PO 40 mg DAILY MICHA Administration Heparin Sodium (Porcine) 3,000 unit 08/21/20 11:00 Heparin 10,000 Units/10 Ml Vial IV ERICH PRN hemodialysis Hydralazine HCl 10 mg 08/20/20 09:36 08/23/20 00:05 Hydralazine 20 Mg/1 Ml Inj IV 10 mg Q4HR PRN Administration Hypertension Sodium Chloride 100 mls @ 999 mls/hr 08/19/20 10:39 Nacl 0.9% IV ERICH PRN Hypotension Insulin Human Lispro 0 unit 08/19/20 07:30 08/25/20 07:41 Insulin Lispro 100 Unit/Ml SUB-Q Not Given ACHS [facility] Protocol Multivitamins 1 each 08/19/20 10:00 08/25/20 09:01 Multivitamins ,Therapeutic Tab PO 1 each QDAY MICHA Administration Nicotine 14 mg 08/19/20 10:00 08/25/20 09:01 Nicotine 14 Mg/24 Hr Patch TD 14 mg QDAY MICHA Administration Nifedipine 30 mg 08/20/20 10:00 08/25/20 09:01 Nifedipine Xl 30 Mg Tab PO 30 mg BID MICHA Administration Nitroglycerin 0.4 mg 08/18/20 23:24 Nitroglycerin 0.4 Mg Tab Subl SL .Q5MIN PRN Chest Pain Ondansetron HCl 4 mg 08/18/20 23:24 Ondansetron 4 Mg/2 Ml Inj IV Q6H PRN Nausea And Vomiting Sodium Bicarbonate 650 mg 08/20/20 14:00 08/25/20 08:45 Sodium Bicarbonate 650 Mg Tab PO 650 mg TID MICHA Administration Sodium Chloride 10 ml 08/19/20 10:00 08/25/20 09:01 Sodium Chloride 0.9% 10 Ml Flush Syringe IV 10 ml BID MICHA Administration Sodium Chloride 10 ml 08/18/20 23:24 Sodium Chloride 0.9% 10 Ml Flush Syringe IV PRN PRN LINE FLUSH
--- NOTE | 2020-08-25 11:05 | Discharge Summary ---
Providers - Providers Date of Admission: 08/19/20 08:35 Date of discharge: 08/25/20 Attending physician: MARIELENA BAKER 08/18/20 22:58 Consult to Physician [CONS] Routine Comment: Dr. Jones spoke to @ [phone] Consulting Provider: BERTA VAUGHN Physician Instructions: Reason For Exam: esrd 08/18/20 23:24 Consult to Physician [CONS] Routine Comment: Consulting Provider: FREDI GREEN Physician Instructions: Reason For Exam: elevated trop, AE-CHF 08/19/20 10:38 Consult to Interventional Radiology [CONS] Routine Consulting Provider: CARLOS ALBERTO CLARK Reason For Exam: Tunnel hemodialysis catheter 08/24/20 09:00 Consult to Wound/ET Nurse [CONS] Routine Reason For Exam: wound eval 08/25/20 08:04 Occupational Therapy Evaluate and Treat [CONS] Urgent Comment: Reason For Exam: for ADL evaluation Physical Therapy Evaluation and Treat [CONS] Urgent Comment: Reason For Exam: to assess mobility Primary care physician: US ADMINISTRATIVE LAW JUDGE Hospitalization Reason for admission: Hypoxic respiratory failure/fluid overload/chronic kidney disease Condition: Stable Pertinent studies: -CXR most consistent with congestive heart failure and interval development of bilateral interstitial edema Procedures: HD catheter placement Hemodialysis per schedule Hospital course: 74-year-old male patient with significant past medical history of chronic kidney disease anemia of chronic kidney disease congestive heart failure diastolic dysfunction hypertension was admitted through emergency room with hypoxic respiratory failure due to fluid overload due to acute on chronic kidney disease. Patient was evaluated by nephrology due to severe fluid overload and decompensation decided to initiate hemodialysis, vascular evaluated the patient for Vas-Cath and patient received HD per schedule, patient was also evaluated by mechanical product engineer for acute exacerbation of congestive heart failure, did not recommend any further work-up however medications were optimized, patient symptoms slowly but gradually improved, nephrology recommended long-term he modialysis Case management has set up outpatient HD chair placement.Patient blood pressures blood sugars respiratory status closely monitored Medications optimized Blood pressures were uncontrolled monitor the blood pressures adjust with the medication Patient also had anemia of chronic disease with hemoglobin of 6.8, received 1 unit of PRBC which improved hemoglobin to more than 8 Today patient is comfortable no new complaints vital signs stable, Physical examination prior to discharge did not show any new findings Case management set up outpatient hemodialysis, nephrology cardiology cleared the patient for discharge follow-up in the office per schedule Patient is hemodynamically and clinically stable at discharge Discharge diagnosis: --CKD changed to ESRD --Hypertensive urgency present on admission/stable --Acute hyperkalemia/Resolved after HD --Fluid overload;Secondary to ESRD, Resolved HD --Anemia of chronic kidney disease;Hb 6.8,1 unit of PRBC, Hb 9.1 today --Acute Exacerbation CHF/fluid overload due to ESRD, EF 65% Cardiology evaluated, No ischemia work-up, medical management --Acute hypoxic respiratory failure : Due to fluid overload due to ESRD HD per schedule --Type II DM; A1c 4.9, stable --Tobacco abuse: Smoking cessation counseling, nicotine patch as needed Discharge plan of care discussed with the patient and his nurse I also discussed with tool or die drawing checker Dr. Vaughn Discussed with [facility] primary care physician Dr. Mock Cleared by consultants for discharge and follow-up per schedule Disposition: DC-01 TO HOME OR SELFCARE Final Discharge Diagnosis (Prints w/discharge instructions): Chronic kidney disease transformed to ESRD. Fluid overload. New onset hemodialysis. Acute hypoxic respiratory failure. Anemia of chronic kidney disease. Status post blood transfusion. Hyperglycemia/A1c 4.9. Ongoing tobacco use. Hypertensive urgency Time spent for discharge: 35 MIN Core Measure Documentation - Palliative Care Palliative Care/ Comfort Measures: Not Applicable - Core Measures Any of the following diagnoses?: none Exam - Constitutional Vitals: Temp Pulse Resp BP Pulse Ox 98.6 F 60 17 138/51 97 08/25/20 07:24 08/25/20 08:32 08/25/20 08:32 08/25/20 07:24 08/25/20 10:00 General appearance: Present: no acute distress, well-nourished - EENT Eyes: Present: PERRL, EOM intact - Neck Neck: Present: supple, normal ROM - Respiratory Respiratory effort: normal Respiratory: bilateral: diminished, negative: rales, rhonchi, wheezing - Cardiovascular Rhythm: regular Heart Sounds: Present: S1 & S2 - Extremities Extremities: no ischemia, No edema - Abdominal General gastrointestinal: Present: soft, non-tender, non-distended, normal bowel sounds - Integumentary Integumentary: Present: clear, warm - Musculoskeletal Musculoskeletal: generalized weakness - Psychiatric Psychiatric: cooperative - Neurologic Neurologic: moves all extremities Plan Activity: advance as tolerated, fall precautions Diet: renal Additional Instructions: Follow renal/hemodialysis per schedule. If you have worsening symptoms contact MD or go to emergency room. Advised to follow tool or die drawing checker, primary care physician per schedule. Patient saturates well on room air, no criteria for home oxygen Follow up with: PRIMARY CARE, [Primary Care Provider] - 3-5 Days BERTA VAUGHN MD [Staff Physician] - 7 Days Prescriptions: Folic Acid [Folvite] 1 mg PO QDAY #30 tablet Nicotine [Habitrol] 14 mg TD QDAY #30 patch Furosemide [Lasix TAB] 40 mg PO QDAY #30 tablet AtorvaSTATin [Lipitor] 40 mg PO QHS #30 tablet Multivitamin Tab [Multiple Vitamin TAB (Theragran)] 1 each PO QDAY #30 tablet Famotidine [Pepcid] 20 mg PO DAILY #30 tablet NIFEdipine XL [Procardia Xl] 30 mg PO BID #60 tablet Sodium Bicarbonate 650 mg PO TID #90 tablet
--- NOTE | 2020-08-25 14:54 | Event Note ---
Date: 08/25/20 I called patient's sister Ms. Marcy Calderon at [phone] and discussed in detail patient's condition and discharge planning She had numerous questions answered all of them, and she is coming to the hospital to pick him up I informed patient's nurse Mr. Rasheed about my conversation with Ms. Marcy Calderon.
--- NOTE | 2020-08-26 11:02 | Electrocardiograph Report ---
[facility] Test Date: 2020-08-18 Test Time: 17:45:32 Pat Name: VALENTINA DIAZ Department: Room: A457 Gender: M Custom Seamstress: ISAIAH : 1945 Requested By: MAREK CHATMAN III Order Number: [id number] Reading MD: Cindy Luis Measurements Intervals [place] Rate: 60 P: 58 AK: 230 QRS: 43 QRSD: 90 T: 161 QT: 467 QTc: 466 Interpretive Statements Sinus rhythm Prolonged AK interval LVH with secondary repolarization abnormality No previous ECG available for comparison Electronically Signed On 08-26-2020 11:02:07 EDT by Cindy Luis
== END 2020-08-25 15:53 | disposition home health service (06) | DRG 291 ==
LOC: ED 16:06 → IMCU 23:16 → OBSVTOIN 08-19 08:35 → 4A 08-23 23:59
PROVIDERS: ADMIT Internal Medicine Geriatric Medicine; ATTEND Internal Medicine
PROC: 0JH63XZ Insertion of Tunneled Vascular Access Device into Chest Subcutaneous Tissue and Fascia, Percutaneous Approach (ICD-10-PCS; principal; 2020-08-19)
PROC: 02H633Z Insertion of Infusion Device into Right Atrium, Percutaneous Approach (ICD-10-PCS; 2020-08-19)
PROC: B548ZZA Ultrasonography of Superior Vena Cava, Guidance (ICD-10-PCS; 2020-08-19)
PROC: 5A1D70Z Performance of Urinary Filtration, Intermittent, Less than 6 Hours Per Day (ICD-10-PCS; 2020-08-19)
PROC: 30233N1 Transfusion of Nonautologous Red Blood Cells into Peripheral Vein, Percutaneous Approach (ICD-10-PCS; 2020-08-19)
PROC: B5181ZA Fluoroscopy of Superior Vena Cava using Low Osmolar Contrast, Guidance (ICD-10-PCS; 2020-08-19)
PROC: 5A09357 Assistance with Respiratory Ventilation, Less than 24 Consecutive Hours, Continuous Positive Airway Pressure (ICD-10-PCS; 2020-08-20)
PROC: 5A1D70Z Performance of Urinary Filtration, Intermittent, Less than 6 Hours Per Day (ICD-10-PCS; 2020-08-20)
PROC: 5A1D70Z Performance of Urinary Filtration, Intermittent, Less than 6 Hours Per Day (ICD-10-PCS; 2020-08-24)
PROC: 4A033R1 Measurement of Arterial Saturation, Peripheral, Percutaneous Approach (ICD-10-PCS; 2020-08-25)
DX: I13.2 Hypertensive heart and chronic kidney disease with heart failure and with stage 5 chronic kidney disease, or end stage renal disease (principal); J96.01 Acute respiratory failure with hypoxia; I50.33 Acute on chronic diastolic (congestive) heart failure; N18.6 End stage renal disease; I16.1 Hypertensive emergency; J81.1 Chronic pulmonary edema; E87.2 Acidosis; E11.22 Type 2 diabetes mellitus with diabetic chronic kidney disease; E87.5 Hyperkalemia; Z99.2 Dependence on renal dialysis; D63.1 Anemia in chronic kidney disease; R77.8 Other specified abnormalities of plasma proteins; Z88.8 Allergy status to other drugs, medicaments and biological substances; Z20.822 Contact with and (suspected) exposure to COVID-19; Z86.73 Personal history of transient ischemic attack (TIA), and cerebral infarction without residual deficits; M19.90 Unspecified osteoarthritis, unspecified site; F17.200 Nicotine dependence, unspecified, uncomplicated; Z79.82 Long term (current) use of aspirin; Z82.49 Family history of ischemic heart disease and other diseases of the circulatory system; Z91.19 Patient's noncompliance with other medical treatment and regimen; E11.65 Type 2 diabetes mellitus with hyperglycemia; Z71.6 Tobacco abuse counseling
CPT/HCPCS: 36415; 36558; 36600; 71046; 77001; 80048; 80053; 80061; 80074; 82805; 82962; 83036; 83735; 83880; 84100; 84132; 84484; 85014; 85018; 85025; 86850; 86900; 86901; 86920; 87641; 93005; 96374; 96375; G0378; C1750; J0360; J0885; J1644; J1815; J1940; J2250; J3010; J7030; J7040; J7050; P9016; U0003

== ENCOUNTER 2020-09-14 11:48 | Emergency (ER) | payer MEDICARE ==
[2020-09-14 11:55] VITALS: BP 173/65
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
== END 2020-09-14 17:30 | disposition home or self-care (01) ==
LOC: ED 11:48
DX: M54.6 Pain in thoracic spine (principal); R01.1 Cardiac murmur, unspecified; I11.0 Hypertensive heart disease with heart failure; I50.9 Heart failure, unspecified; E11.9 Type 2 diabetes mellitus without complications; M19.91 Primary osteoarthritis, unspecified site; Z98.890 Other specified postprocedural states; Z79.899 Other long term (current) drug therapy; Z88.8 Allergy status to other drugs, medicaments and biological substances
CPT/HCPCS: 72072

== ENCOUNTER 2020-12-29 06:01 | Day surgery (SDC) | payer MEDICARE ==
[~2020-12-29 06:01] MED LIST: ceFAZolin/STERILE WATER 2 GM/20 ML SYRINGE IV NR
[2020-12-29] MEDS ORDERED: SODIUM CHLORIDE 0.9% 1000 ML 1,000 ML IV SCH (06:30)
[2020-12-29 07:27] LABS: Hematocrit 41.1 % (35.5-45.6); Hemoglobin 13.2 gm/dl (11.8-15.2); Mean Corpuscular HGB Conc 32 % (32-34); Mean Corpuscular Volume 93 fl (84-94); Platelet Count 228 K/mm3 (140-440); Red Blood Count 4.44 M/mm3 (3.65-5.03); Red Cell Distribution Width 14.3 % (13.2-15.2)
[2020-12-29] MEDS ORDERED: MIDAZOLAM 2 MG/2 ML INJ ONE (07:45)
[2020-12-29] MEDS ORDERED: fentaNYL 100 MCG/2 ML INJ ONE (07:45)
[2020-12-29] MEDS ORDERED: LIDOCAINE 1%/EPINEPHRINE 1:100,000 VIAL (20 ML) INFILTRATI ONE (07:45)
[2020-12-29] MEDS ORDERED: SODIUM CHLORIDE 0.9% 250ML 250 ML ONE (07:45)
[2020-12-29] MEDS ORDERED: BUPIVACAINE/PF (0.5%) 5 MG/1 ML 30 ML VIAL INFILTRATI ONE ×2 (07:45)
[2020-12-29] MEDS ORDERED: HEPARIN 10,000 UNITS/10 ML VIAL ONE (07:45)
[2020-12-29] MEDS ORDERED: LIDOCAINE (1%) 10 MG/1 ML VIAL 20 ML MDV ONE (07:46)
[2020-12-29 08:02] LABS: BUN/Creatinine Ratio TNR; Blood Urea Nitrogen TNR mg/dL (9-20); Calcium TNR mg/dL (8.4-10.2); Hemolysis Index TNR
[2020-12-29] MEDS ORDERED: propofoL 200 MG/20 ML VIAL IV ONE (08:03)
[2020-12-29] MEDS ORDERED: LIDOCAINE MPF (2%) 20 MG/1 ML VIAL 5 ML ONE (08:03)
[2020-12-29] MEDS ORDERED: HEPARIN 10,000 UNITS/10 ML VIAL IV ONE (09:44)
[2020-12-29] MEDS ORDERED: SODIUM CHLORIDE 0.9% 500 ML IVPB IRRIGATION ONE (09:44)
--- NOTE | 2020-12-29 10:53 | Short Stay Summary ---
Short Stay Documentation Date of service: 12/29/20 Narrative H&P: See H&P - History H&P: obtained from office - Allergies and Medications Current Medications: Allergies Beta-Blockers (Beta-Adrenergic Bloc Adverse Reaction (Verified 12/24/20 12:59) Anaphylaxis Home Medications Medication Instructions Recorded Confirmed Last Taken Type AtorvaSTATin [Lipitor] 40 mg PO QHS #30 tablet 08/25/20 12/29/20 12/28/20 20:00 Rx Folic Acid [Folvite] 1 mg PO QDAY #30 tablet 08/25/20 12/29/20 12/28/20 09:00 Rx NIFEdipine XL [Procardia Xl] 30 mg PO BID #60 tablet 08/25/20 12/29/20 12/29/20 04:00 Rx Acetaminophen [Acetaminophen TAB] 500 mg PO Q8HR PRN #20 09/14/20 12/24/20 Unknown Rx Aspirin [Adult Aspirin] 120 mg PO DAILY 12/24/20 12/29/20 12/15/20 09:00 History Ergocalciferol(Vitamin D2)(Nf) 1,000 unit PO DAILY 12/24/20 12/29/20 12/28/20 09:00 History [Vitamin D (Nf)] ISOSORBIDE MONOnitrate [Imdur ER] 60 mg PO QDAY 12/24/20 12/29/20 12/28/20 09:00 History Active Medications Cefazolin Sodium (Cefazolin/Sterile Water 2 Gm/20 Ml Syringe) 2 gm IV PREOP NR Stop: 12/29/20 23:59 Sodium Chloride (Nacl 0.9% 1000 Ml) 1,000 mls @ 42 mls/hr IV DIRECT MICHA - Brief post op/procedure progress note Date of procedure: 12/29/20 Pre-op diagnosis: End-Stage Renal Disease Post-op diagnosis: same Procedure: Creation of Left Brachiocephalic Arteriovenous Fistula Anesthesia: MAC, regional Surgeon: DELICIA CAMPOS Estimated blood loss: minimal Pathology: none Condition: stable - Disposition Condition at discharge: Good Disposition: 01 HOME / SELF CARE / HOMELESS Short Stay Discharge Plan Activity: other (No heavy lifting with left arm for 2 weeks. You stress ball with left hand as often as possible.) Wound: open to air, keep clean and dry, other (Okay to wash the left arm wound with soap and water but do not soak in water for 2 weeks.) Follow up with: DELICIA CAMPOS MD [Staff Physician] - 14 Days Prescriptions: HYDROcodone/APAP 5-325 [[employer] 5/325] 1 each PO Q4HR PRN #30 tablet PRN Reason: Pain
--- NOTE | 2020-12-29 10:54 | Operative Report ---
Operative Report Operative Report: Date of procedure: 12/30/2019 Pre-operative diagnosis: End-Stage Renal Disease Post-operative diagnosis: End-Stage Renal Disease Procedure(s): Creation of Left Brachial Artery to Cephalic Vein Arteriovenous Fistula Surgeon: Trent Guthrie MD Pipe Line Inspector: None Anesthesia: Regional/MAC EBL: Minimal Counts: Correct Complications: None Condition: Stable Findings: Successful creation of left brachiocephalic arteriovenous fistula with palpable thrill and palpable radial pulse at the completion of the case. Specimen: None Indications: The patient is a 75-year-old male with a history of end-stage renal disease who is currently on hemodialysis through a right internal jugular permacath. He is in need of long-term dialysis access and was found to be a suitable candidate for creation of a left arm arteriovenous fistula. He was given the risk, benefits, and alternative procedures and consented to the procedure. Description of Procedure: The patient had a regional block of the patient's left arm was performed in the preoperative area prior to being transported to the operating room. Once the regional block was performed the patient was transported to the operating room and adequate sedation was given. When the patient was sedated a timeout was performed and the patient's left arm was then prepped and draped in normal sterile fashion. A transverse incision was then made and carried down to the cephalic vein using sharp dissection. The vein was dissected out both proximally and distally and suture ligated and divided distally. I flushed the vein with heparinized saline and flow was controlled with a bulldog clamp. I then dissected out the brachial artery through this incision circumferentially both proximal and distal and controlled the artery with vessel loops. I systemically heparinized the patient with 2000 units of heparin IV and used ang led DeBakey clamps to control flow through the artery. I created an arteriotomy using an 11 blade and Robins scissors. I created an end to side anastomosis between the cephalic vein and brachial artery using a 6-0 Prolene in running fashion. Prior to completing the anastomosis I flashed the artery both proximally and distally and then flushed the anastomosis with heparinized saline to remove any debris. I then completed the anastomosis and removed all clamps allowing flow into the fistula which had an adequate thrill. I achieved hemostasis with a combination of Quick Clot and electrocautery. Once hemostasis had been achieved I closed the wound in 2 layers using a 3-0 Vicryl in a running fashion in the deep dermal layer and a 4-0 Monocryl in running fashion in the subcuticular layer. I then dressed the wound with Dermabond. The patient tolerated the procedure well. All sponge, needle, and instrument counts were correct. The patient was taken to the recovery area in stable condition.
[2020-12-29] MEDS ORDERED: HEPARIN 10,000 UNIT/1 ML VIAL IV ONE (12:28)
--- NOTE | 2020-12-29 17:24 | Post Anesthesia Evaluation ---
- Post Anesthesia Evaluation Patient Participated: Yes Airway Patent: Yes Stable Respiratory Function: Yes Nausea/Vomiting: No Temp > 96.8F: Yes Pain Manageable: Yes Adequeate Hydration: Yes Anesthesia Complications: No Block Receding Appropriately: Yes Patient on Ventilator: No
[2020-12-29 19:46] VITALS: BP 148/57
--- NOTE | 2020-12-30 08:11 | Anesthesia Consultation ---
Anesthesia Consult and Med Hx Date of service: 12/30/20 - Airway Anesthetic Teeth Evaluation: Poor ROM Head & Neck: Adequate Mental/Hyoid Distance: Adequate Mallampati Class: Class II Intubation Access Assessment: Probably Good - Pulmonary Exam CTA: Yes - Cardiac Exam Cardiac Exam: RRR - Pre-Operative Health Status ASA Pre-Surgery Classification: ASA4 Proposed Anesthetic Plan: MAC Nerve Block: supraclavicular block - Pulmonary Hx Smoking: Yes (FORMER SMOKER) Hx Asthma: No COPD: No Hx Pneumonia: Yes (2018) Hx Sleep Apnea: No - Cardiovascular System Hx Hypertension: Yes Hx Coronary Artery Disease: No Hx Heart Attack/AMI: No Hx Angina: No Hx Percutaneous Transluminal Coronary Angioplasty (PTCA): No Hx Pacemaker: No Hx Internal Defibrillator: No Hx Valvular Heart Disease: No Hx Heart Murmur: No Hx Peripheral Vascular Disease: No - Central Nervous System Hx Seizures: Yes (LAST SEIZURE 10 YEARS AGO. ) CVA: Yes Hx Back Pain: Yes Hx Psychiatric Problems: No - Endocrine Hx Renal Disease: Yes (CKD) Hx End Stage Renal Disease: Yes Hx Liver Disease: No Hx Non-Insulin Dependent Diabetes: Yes Hx Hypothyroidism: No Hx Hyperthyroidism: No - Hematic Hx Anemia: Yes - Other Systems Hx Alcohol Use: Yes (1 BEER/WEEK) Hx Substance Use: No Hx Cancer: No
--- NOTE | 2020-12-30 08:12 | Anesthesia Day of Surgery ---
Anesthesia Day of Surgery - Day of Surgery Patient Examined: Yes Patient H&P Reviewed: Yes Patient is NPO: Yes
== END 2020-12-29 13:15 | disposition home or self-care (01) ==
LOC: OR 06:01
PROVIDERS: ATTEND Surgery Vascular Surgery
DX: I12.0 Hypertensive chronic kidney disease with stage 5 chronic kidney disease or end stage renal disease (principal); E11.22 Type 2 diabetes mellitus with diabetic chronic kidney disease; N18.6 End stage renal disease; Z20.822 Contact with and (suspected) exposure to COVID-19; Z86.73 Personal history of transient ischemic attack (TIA), and cerebral infarction without residual deficits; Z87.01 Personal history of pneumonia (recurrent); Z87.891 Personal history of nicotine dependence; Z79.899 Other long term (current) drug therapy; Z79.82 Long term (current) use of aspirin; Z88.8 Allergy status to other drugs, medicaments and biological substances; Z98.890 Other specified postprocedural states
CPT/HCPCS: 36415; 36818; 80048; 82962; 85027; J0690; J1644; J2250; J2704; J3010; J7030; J7040; J7050; U0003; 64450

== ENCOUNTER 2021-01-21 17:12 | Emergency (ER) | payer MEDICARE ==
--- NOTE | 2021-01-21 20:21 | XRay Report ---
PELVIS 1 VIEW(S) INDICATION / CLINICAL INFORMATION: fall/pain COMPARISON: None available. FINDINGS: BONES / JOINT(S): No acute fracture or subluxation. Bilateral hip osteoarthritis. SI joints and pubic symphysis are intact. SOFT TISSUES: No significant abnormality. ADDITIONAL FINDINGS: None. IMPRESSION: No acute osseous findings of the pelvis. Signer Name: David Hope MD Signed: 01/21/2021 8:17 PM Workstation Name: [id number]
--- NOTE | 2021-01-21 20:25 | XRay Report ---
XR spine lumbosacral 2-3V INDICATION / CLINICAL INFORMATION: fall/pain. COMPARISON: CT from 08/11/2020 FINDINGS: BONES/JOINT(S): Mild left convex curvature with apex at L3. Alignment is normal. Vertebral body heigh ts are intact. There is no evidence of fracture. Severe lower lumbar facet arthropathy and mild-to-mo derate multilevel disc degenerative changes. SI joints are intact. PARASPINAL SOFT TISSUES:No significant abnormality. ADDITIONAL FINDINGS: None. IMPRESSION: No acute findings. Signer Name: David Hope MD Signed: 01/21/2021 8:21 PM Workstation Name: [id number]
--- NOTE | 2021-01-21 20:25 | XRay Report ---
Right rib series, 4 views HISTORY: Pain COMPARISON: None FINDINGS: Right central venous catheter terminates over the SVC. Heart size is accentuated. There is no signifi cant pulmonary vasculature congestion. Shallow inspiration with bronchovascular crowding. No discrete airspace consolidation. No sizable pleural effusion or pneumothorax. No acute or healing displaced right rib fracture. IMPRESSION: No acute process. Signer Name: David Hope MD Signed: 01/21/2021 8:20 PM Workstation Name: [id number]
--- NOTE | 2021-01-21 21:37 | Cat Scan Report ---
CT BRAIN: 01/21/2021 INDICATION / CLINICAL INFORMATION: fall/head injury. COMPARISON: CT brain 01/02/2020 FINDINGS: BRAIN/INTRACRANIAL STRUCTURES: Unenhanced CT images of the brain demonstrate no evidence of acute int racranial abnormality. Ventricles and sulci are normal in size and shape for a patient of this age. There is no evidence of acute ischemic injury, hemorrhage, or mass. Small focal area of right frontal cortical encephalomalacia is again noted. A small chronic ischemic changes in the cerebellum are also unchanged. There are no abnormal extra-axial fluid collections. EXTRACRANIAL STRUCTURES: Unremarkable. 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 No significant change when compared to the prior exam from 01/02/[address] scans at this location are performed using dose reduction to ALARA by means of automated expos ure control. Signer Name: Hima Osborne MD Signed: 01/21/2021 9:32 PM Workstation Name: [id number]
--- NOTE | 2021-01-21 22:07 | Emergency Department Report ---
ED General Adult HPI - General Chief complaint: Fall Stated complaint: FALL Time Seen by Provider: 01/21/21 19:27 Source: patient Mode of arrival: Ambulatory Limitations: Physical Limitation - History of Present Illness Initial comments: The patient presents to the emergency department status post a fall yesterday with a complaint of lower back pain and right-sided rib pain. Patient states also yesterday after the fall he felt something come out of his butt. Patient's not sure if he hit his head yesterday when he fell but he denies any loss of consciousness. He does complain of a mild headache. Denies any neck pain. -: Sudden Location: head, neck Radiation: non-radiation Severity scale (0 -10): 4 Quality: aching Consistency: constant Improves with: none Worsens with: none Associated Symptoms: denies other symptoms Treatments Prior to Arrival: none - Related Data Home Medications Medication Instructions Recorded Confirmed Last Taken Aspirin [Adult Aspirin] 120 mg PO DAILY 12/24/20 12/29/20 12/15/20 09:00 Ergocalciferol(Vitamin D2)(Nf) 1,000 unit PO DAILY 12/24/20 12/29/20 12/28/20 09:00 [Vitamin D (Nf)] ISOSORBIDE MONOnitrate [Imdur ER] 60 mg PO QDAY 12/24/20 12/29/20 12/28/20 09:00 Previous Rx's Medication Instructions Recorded Last Taken Type AtorvaSTATin [Lipitor] 40 mg PO QHS #30 tablet 08/25/20 12/28/20 20:00 Rx Folic Acid [Folvite] 1 mg PO QDAY #30 tablet 08/25/20 12/28/20 09:00 Rx NIFEdipine XL [Procardia Xl] 30 mg PO BID #60 tablet 08/25/20 12/29/20 04:00 Rx Acetaminophen [Acetaminophen TAB] 500 mg PO Q8HR PRN #20 09/14/20 Unknown Rx HYDROcodone/APAP 5-325 [Sterling 1 each PO Q4HR PRN #30 tablet 12/29/20 Unknown Rx 5/325] traMADoL [Ultram] 50 mg PO Q6HR PRN #24 tablet 01/21/21 Unknown Rx Allergies Allergy/AdvReac Type Severity Reaction Status Date / Time Beta-Blockers AdvReac Anaphylaxis Verified 12/24/20 12:59 (Beta-Adrenergic Bloc ED Review of Systems ROS: Stated complaint: FALL Other details as noted in HPI Constitutional: denies: chills, fever Eyes: denies: eye pain, eye discharge, vision change ENT: denies: ear pain, throat pain Respiratory: denies: cough, shortness of breath, wheezing Cardiovascular: denies: chest pain, palpitations Endocrine: no symptoms reported Gastrointestinal: denies: abdominal pain, nausea, diarrhea Genitourinary: denies: urgency, dysuria Musculoskeletal: denies: back pain, joint swelling, arthralgia Skin: denies: rash, lesions Neurological: denies: headache, weakness, paresthesias Psychiatric: denies: anxiety, depression Hematological/Lymphatic: denies: easy bleeding, easy bruising ED Past Medical Hx - Past Medical History Hx Hypertension: Yes Hx CVA: Yes (Left side deficit) Hx Heart Attack/AMI: No Hx Congestive Heart Failure: Yes Hx Diabetes: Yes Hx Deep Vein Thrombosis: No Hx Liver Disease: No Hx Renal Disease: Yes (CKD) Hx Arthritis: Yes Hx Seizures: Yes (LAST SEIZURE 10 YEARS AGO. 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 TREATED.) Hx Dementia: No Hx HIV: No Additional medical 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 - Surgical History Hx Coronary Stent: No Hx Pacemaker: No Hx Internal Defibrillator: No Additional Surgical History: Right shoulder surgery - Social History Smoking Status: Former Smoker - Medications Home Medications: Home Medications Medication Instructions Recorded Confirmed Last Taken Type AtorvaSTATin [Lipitor] 40 mg PO QHS #30 tablet 08/25/20 12/29/20 12/28/20 20:00 Rx Folic Acid [Folvite] 1 mg PO QDAY #30 tablet 08/25/20 12/29/20 12/28/20 09:00 Rx NIFEdipine XL [Procardia Xl] 30 mg PO BID #60 tablet 08/25/20 12/29/20 12/29/20 04:00 Rx Acetaminophen [Acetaminophen TAB] 500 mg PO Q8HR PRN #20 09/14/20 12/24/20 Unknown Rx Aspirin [Adult Aspirin] 120 mg PO DAILY 12/24/20 12/29/20 12/15/20 09:00 History Ergocalciferol(Vitamin D2)(Nf) 1,000 unit PO DAILY 12/24/20 12/29/20 12/28/20 09:00 History [Vitamin D (Nf)] ISOSORBIDE MONOnitrate [Imdur ER] 60 mg PO QDAY 12/24/20 12/29/20 12/28/20 09:00 History HYDROcodone/APAP 5-325 [Sterling 1 each PO Q4HR PRN #30 tablet 12/29/20 Unknown Rx 5/325] traMADoL [Ultram] 50 mg PO Q6HR PRN #24 tablet 01/21/21 Unknown Rx ED Physical Exam - General Limitations: Physical Limitation General appearance: alert, in no apparent distress - Head Head exam: Present: atraumatic, normocephalic - Eye Eye exam: Present: normal appearance, PERRL, EOMI - ENT ENT exam: Present: mucous membranes moist - Neck Neck exam: Present: normal inspection - Respiratory Respiratory exam: Present: normal lung sounds bilaterally, other (Tenderness palpation of ribs 7 through 9 right side). Absent: respiratory distress - Cardiovascular Cardiovascular Exam: Present: regular rate, normal rhythm. Absent: systolic murmur, diastolic murmur, rubs, gallop - GI/Abdominal GI/Abdominal exam: Present: soft, normal bowel sounds. Absent: distended, tenderness - Rectal Rectal exam: Present: deferred, other (Patient has noninflamed external hemorrhoids on exam that are not thrombosed or erythematous) - Extremities Exam Extremities exam: Present: normal inspection - Back Exam Back exam: Present: normal inspection, other (Tenderness to palpation of the paralumbar region) - Neurological Exam Neurological exam: Present: alert, oriented X3, CN II-XII intact. Absent: motor sensory deficit - Psychiatric Psychiatric exam: Present: normal affect, normal mood - Skin Skin exam: Present: warm, dry, intact, normal color. Absent: rash ED Course Vital Signs 01/21/21 17:29 Temperature 98.2 F Pulse Rate 61 Respiratory 20 Rate Blood Pressure 138/59 O2 Sat by Pulse 98 Oximetry ED Medical Decision Making - Medical Decision Making CT of the head was obtained because the patient was not sure if he hit his head or not during the fall yesterday especially in lieu of complaint of a headache Discussed results with patient Critical care attestation.: If time is entered above; I have spent that time in minutes in the direct care of this critically ill patient, excluding procedure time. ED Disposition Clinical Impression: Fall, Lumbar spine strain, Rib contusion, External hemorrhoids without complication Disposition: 01 HOME / SELF CARE / HOMELESS Is pt being admited?: No Does the pt Need Aspirin: No Condition: Stable Instructions: Hemorrhoids, Lumbar Strain Additional Instructions: return if worse Referrals: PRIMARY CAREMD [Primary Care Provider] - 3-5 Days MERLE CHAVEZ MD [Staff Physician] - 3-5 Days Time of Disposition: 22:13
[2021-01-22 00:37] VITALS: BP 173/58
== END 2021-01-22 00:35 | disposition home or self-care (01) ==
LOC: ED 17:12
DX: S39.012A Strain of muscle, fascia and tendon of lower back, initial encounter (principal); S20.219A Contusion of unspecified front wall of thorax, initial encounter; K64.4 Residual hemorrhoidal skin tags; Z87.891 Personal history of nicotine dependence; I10 Essential (primary) hypertension; Z88.8 Allergy status to other drugs, medicaments and biological substances; E11.8 Type 2 diabetes mellitus with unspecified complications; Z86.79 Personal history of other diseases of the circulatory system; W19.XXXA Unspecified fall, initial encounter; Y93.89 Activity, other specified; Y92.89 Other specified places as the place of occurrence of the external cause; Y99.8 Other external cause status
CPT/HCPCS: 70450; 72100; 72170; 99283

== ENCOUNTER 2021-05-31 13:19 | Observation (INO) | payer MEDICARE ==
[2021-05-31] MEDS ORDERED: MORPHINE 2 MG/1 ML INJ IV ONE (16:27)
[2021-05-31] MEDS ORDERED: NITROGLYCERIN 0.4 MG TAB SUBL SL PRN (16:27)
--- NOTE | 2021-05-31 16:28 | Emergency Department Report ---
ED General Adult HPI - General Chief complaint: Chest Pain Stated complaint: Chest pain, I felt all over Time Seen by Provider: 05/31/21 16:12 Source: patient, EMS ( EMS documentation not available at time of chart dictation ), RN notes reviewed, old records reviewed Mode of arrival: Stretcher Limitations: Other (Patient is a poor historian) - History of Present Illness Initial comments: Nephrology: Dr. 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 The patient is a 75-year-old gentleman who presents to the ER today with complaints of central and right-sided chest pain. The pain has been present since yesterday. The pain does not radiate to the back, arms or neck. He denies vomiting and diaphoresis. He endorses lower extremity swelling. He is not sure when his last hemodialysis session took place. The patient also endorses that he fell yesterday, landing on his left hemibody, and hit his head and his neck. He complains of left lateral thorax pain, and left upper quadrant abdominal pain. He is unclear as to whether or not he has recently taken aspirin. He denies extremity weakness/numbness -: hour(s), days(s) Location: head, neck, chest, abdomen Radiation: non-radiation Consistency: constant Improves with: rest Worsens with: movement - Related Data Home Medications Medication Instructions Recorded Confirmed Last Taken Aspirin [Adult Aspirin] 120 mg PO DAILY 12/24/20 12/29/20 12/15/20 09:00 Ergocalciferol(Vitamin D2)(Nf) 1,000 unit PO DAILY 12/24/20 12/29/20 12/28/20 09:00 [Vitamin D (Nf)] ISOSORBIDE MONOnitrate [Imdur ER] 60 mg PO QDAY 12/24/20 12/29/20 12/28/20 09:00 Previous Rx's Medication Instructions Recorded Last Taken Type AtorvaSTATin [Lipitor] 40 mg PO QHS #30 tablet 08/25/20 12/28/20 20:00 Rx Folic Acid [Folvite] 1 mg PO QDAY #30 tablet 08/25/20 12/28/20 09:00 Rx NIFEdipine XL [Procardia Xl] 30 mg PO BID #60 tablet 08/25/20 12/29/20 04:00 Rx Acetaminophen [Acetaminophen TAB] 500 mg PO Q8HR PRN #20 09/14/20 Unknown Rx HYDROcodone/APAP 5-325 [[place] 1 each PO Q4HR PRN #30 tablet 12/29/20 Unknown Rx 5/325] traMADoL [Ultram] 50 mg PO Q6HR PRN #24 tablet 01/21/21 Unknown Rx Allergies Allergy/AdvReac Type Severity Reaction Status Date / Time Beta-Blockers AdvReac Anaphylaxis Verified 12/24/20 12:59 (Beta-Adrenergic [facility] ED Review of Systems ROS: Stated complaint: PAIN ALL OVER/CP Other details as noted in HPI Constitutional: malaise. denies: fever Eyes: denies: eye discharge ENT: denies: epistaxis Respiratory: shortness of breath Cardiovascular: chest pain, edema Gastrointestinal: abdominal pain Musculoskeletal: back pain, arthralgia, myalgia Neurological: weakness ED Past Medical Hx - Past Medical History Hx Hypertension: Yes Hx CVA: Yes (Left side deficit) Hx Heart Attack/AMI: No Hx Congestive Heart Failure: Yes Hx Diabetes: Yes Hx Deep Vein Thrombosis: No Hx Liver Disease: No Hx Renal Disease: Yes (CKD) Hx Arthritis: Yes Hx Seizures: Yes (LAST SEIZURE 10 YEARS AGO. 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 TREATED.) Hx Dementia: No Hx HIV: No Additional medical 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 - Surgical History Hx Coronary Stent: No Hx Pacemaker: No Hx Internal Defibrillator: No Additional Surgical History: Right shoulder surgery - Social History Smoking Status: Former Smoker - Medications Home Medications: Home Medications Medication Instructions Recorded Confirmed Last Taken Type AtorvaSTATin [Lipitor] 40 mg PO QHS #30 tablet 08/25/20 12/29/20 12/28/20 20:00 Rx Folic Acid [Folvite] 1 mg PO QDAY #30 tablet 08/25/20 12/29/20 12/28/20 09:00 Rx NIFEdipine XL [Procardia Xl] 30 mg PO BID #60 tablet 08/25/20 12/29/20 12/29/20 04:00 Rx Acetaminophen [Acetaminophen TAB] 500 mg PO Q8HR PRN #20 09/14/20 12/24/20 Unknown Rx Aspirin [Adult Aspirin] 120 mg PO DAILY 12/24/20 12/29/20 12/15/20 09:00 History Ergocalciferol(Vitamin D2)(Nf) 1,000 unit PO DAILY 12/24/20 12/29/20 12/28/20 09:00 History [Vitamin D (Nf)] ISOSORBIDE MONOnitrate [Imdur ER] 60 mg PO QDAY 12/24/20 12/29/20 12/28/20 09:00 History HYDROcodone/APAP 5-325 [[place] 1 each PO Q4HR PRN #30 tablet 12/29/20 Unknown Rx 5/325] traMADoL [Ultram] 50 mg PO Q6HR PRN #24 tablet 01/21/21 Unknown Rx ED Physical Exam - General Limitations: Other (Patient is a poor historian) General appearance: alert, in no apparent distress - Head Head exam: Present: atraumatic, normocephalic - Eye Eye exam: Present: normal appearance, EOMI. Absent: nystagmus - ENT ENT exam: Present: normal exam, normal orophraynx, mucous membranes moist, normal external ear exam - Neck Neck exam: Present: normal inspection, full ROM. Absent: tenderness, meningismus - Respiratory Respiratory exam: Present: normal lung sounds bilaterally, chest wall tenderness. Absent: respiratory distress, wheezes, rales, rhonchi, stridor - Cardiovascular Cardiovascular Exam: Present: normal rhythm, bradycardia, normal heart sounds. Absent: tachycardia, irregular rhythm, systolic murmur, diastolic murmur, rubs, gallop - GI/Abdominal GI/Abdominal exam: Present: soft, tenderness, other (There is left upper quadrant tenderness to deep). Absent: distended, guarding, rebound, rigid, pulsatile mass - Rectal Rectal exam: Present: deferred - Extremities Exam Extremities exam: Present: normal inspection, full ROM, pedal edema (2-3+ edema in the bilateral lower extremities), other (2+ pulses noted in the bilateral and upper and lower extremities. There is no long bony tenderness. The pelvis is stable. The muscular compartments are soft. There is a left upper extremity fistula, with an appropriate thrill, and pulsatility, there is no redness, pus or streaking). Absent: calf tenderness - Back Exam Back exam: Present: normal inspection. Absent: tenderness, CVA tenderness (R), CVA tenderness (L), paraspinal tenderness, vertebral tenderness - Neurological Exam Neurological exam: Present: alert, other (No facial droop. Tongue midline. Extraocular movements intact bilaterally. Facial sensation intact to light touch in V1, V2, V3 distribution bilaterally. 5 and a 5 strength in 4 extremities. Sensation intact to light touch in 4 extremities.) - Psychiatric Psychiatric exam: Present: flat affect - Skin Skin exam: Present: warm, dry, intact, normal color. Absent: rash ED Course Vital Signs 05/31/21 05/31/21 05/31/21 13:22 15:14 15:16 Temperature 97.5 F L Pulse Rate 51 L 52 L 52 L Respiratory 18 16 12 Rate Blood Pressure 144/64 Blood Pressure 155/67 [Left] O2 Sat by Pulse 97 98 99 Oximetry 05/31/21 05/31/21 05/31/21 15:30 15:46 16:00 Temperature Pulse Rate 53 L 53 L 53 L Respiratory 14 10 L 13 Rate Blood Pressure 154/62 154/62 158/64 Blood Pressure [Left] O2 Sat by Pulse 99 98 100 Oximetry 05/31/21 05/31/21 05/31/21 16:16 16:30 16:46 Temperature Pulse Rate 55 L 56 L 54 L Respiratory 12 13 13 Rate Blood Pressure 158/64 173/64 173/64 Blood Pressure [Left] O2 Sat by Pulse 100 100 100 Oximetry 05/31/21 05/31/21 05/31/21 17:00 17:16 17:30 Temperature Pulse Rate 55 L 54 L 56 L Respiratory 12 16 16 Rate Blood Pressure 175/63 175/63 163/58 Blood Pressure [Left] O2 Sat by Pulse 100 100 100 Oximetry 05/31/21 05/31/21 05/31/21 17:46 18:00 18:03 Temperature Pulse Rate 55 L 56 L 58 L Respiratory 13 13 16 Rate Blood Pressure 163/58 171/64 Blood Pressure [Left] O2 Sat by Pulse 100 100 100 Oximetry 05/31/21 05/31/21 05/31/21 18:16 18:30 18:46 Temperature Pulse Rate 55 L 56 L 57 L Respiratory 12 9 L 17 Rate Blood Pressure 171/64 171/64 163/57 Blood Pressure [Left] O2 Sat by Pulse 100 99 99 Oximetry 05/31/21 05/31/21 05/31/21 19:00 19:16 19:55 Temperature 97.6 F Pulse Rate 55 L 54 L 53 L Respiratory 13 12 18 Rate Blood Pressure 164/68 164/68 Blood Pressure 166/63 [Left] O2 Sat by Pulse 99 99 99 Oximetry - Reevaluation(s) Reevaluation #1: 05/31/21 16:37 Differential diagnosis, including not limited to: Intracranial injury, cervical spine injury, intrathoracic injury, intra-abdominal injury, pulmonary embolism, acute coronary syndrome, end-stage renal disease on hemodialysis Assessment and plan: 75-year-old gentleman, moderate risk for major adverse cardiac event as per heart score, presenting to the ER today with a primary complaint of chest pain, secondary complaint of neck pain, left-sided pain after mechanical fall yesterday. Place patient on diagnostic cardiac sonographer. Obtain appropriate laboratory studies. EKG unchanged from prior. Given advanced age, tenderness, obtain CT scan of the brain, C-spine, chest abdomen pelvis. Discussed with his covering data management manager. Reassess after initial data points. Discussed this with the patient. 05/31/21 17:39 Elevated troponin is likely a type II troponin leak. Laboratory studies otherwise reviewed and appreciated. They have been presented to the patient's data management manager. 05/31/21 20:51 Patient has experienced a significant decline delay in disposition in the emergency room due to IV is not working, and requiring placement. Multiple nursing team members and radiology staff members attempted to place IV, ultimately, patient required placement of an EJ by myself. Please reference procedure note. CT angiogram canceled as per current radiology department policy and protocol 05/31/21 22:19 CT scan of the brain, cervical spine, chest abdomen pelvis negative for acute traumatic findings. Hydronephrosis appreciated, patient does not believe he produces urine. He is also receiving hemodialysis. Nuclear medicine study pending. [facility] physician,Dr Douglass to admit to IMS 05/31/21 22:20 05/31/21 23:08 Nuclear medicine study is low probability for pulmonary embolism - Consultations Consultation #1: 05/31/21 16:54 Discussed history, physical, plan of care and clinical impression with covering nephrology, Dr. Abarca. He is in agreement with the plan of care, indicates that his group will follow in consultation. - EJ/Peripheral Line Neck R Time Out Performed: Yes Indications: nurses unable to establis Skin Cleansed in Sterile Fashion: Yes Size: 18 Dressing Placed: Tegaderm Patient Tolerated Procedure: well ED Medical Decision Making - Lab Data Result diagrams: 05/31/21 16:41 05/31/21 16:41 Vital Signs 05/31/21 13:22 Temperature 97.5 F L Pulse Rate 51 L Respiratory 18 Rate Blood Pressure 155/67 [Left] O2 Sat by Pulse 97 Oximetry - EKG Data -: EKG Interpreted by [place] Rate: bradycardia - EKG Data 05/31/21 16:36 The EKG is interpreted at 15: 29 Sinus rhythm, bradycardia, rate 52 bpm. Normal axis, normal P wave axis, left ventricular hypertrophy. First-degree AV block. QTc 4 6 9 ms. Abnormal EKG. Not a STEMI. Appears to be unchanged when compared to prior EKG from August 19, 2019 - Radiology Data Radiology results: pending, report reviewed, image reviewed CHEST 1 VIEW 05/31/2021 4:33 PM INDICATION / CLINICAL INFORMATION: Acute chest pain, blunt trauma. COMPARISON: Right rib series from 01/21/2021. FINDINGS: SUPPORT DEVICES: None. HEART / MEDIASTINUM: The cardiac silhouette is similarly prominent. No other significant abnormality. LUNGS / PLEURA: There is nonspecific bilateral interstitial prominence without evidence of a dense of consolidation. No significant pleural effusion. No pneumothorax. ADDITIONAL FINDINGS: No significant additional findings. IMPRESSION: Nonspecific bilateral interstitial prominence without other radiographic evidence of an acute chest injury. Signer Name: Keegan Burden MD Signed: 05/31/2021 3:58 PM Workstation Name: [id number] CT CERVICAL SPINE WITHOUT CONTRAST INDICATION / CLINICAL INFORMATION: Neck pain status post fall. TECHNIQUE: Axial CT images were obtained through the cervical spine. Sagittal and coronal reformatted images were produced. All CT scans at this location are performed using CT dose reduction for ALARA by means of automated exposure control. COMPARISON: None available. FINDINGS: MANDIBLE: No significant abnormality of the visualized mandible or TMJs. SKULL BASE: No significant abnormality of the skull base. CRANIOCERVICAL JUNCTION: No significant abnormality of the craniocervical junction. ALIGNMENT: Reversal of lordosis likely positional. VERTEBRAL BODIES: Vertebral body heights fairly uniform throughout. DISK SPACES: Uniform disc spacing with moderate osteophyte formation along the anterior longitudinal ligament most noticeably in the mid to lower cervical spine. Small partially calcified right subarticular posterior disc bulge at C4-5 resulting in minimal contact with the anterior thecal sac. FACET JOINTS: No significant abnormality of facet articulations. STENOSIS BY LEVEL: None. CENTRAL CANAL: No significant central stenosis. SOFT TISSUES: No acute findings. Moderate bilateral carotid artery calcification. THYROID: No significant abnormality. UPPER CHEST: Biapical scarring. ADDITIONAL FINDINGS: None. IMPRESSION: 1. No acute cervical spine injury. Mild effacement of the right anterolateral thecal sac at C4-5.. Signer Name: Isaiah Alvarez II, MD Signed: 05/31/2021 7:59 PM Workstation Name: [id number] CT HEAD WITHOUT CONTRAST INDICATION / CLINICAL INFORMATION: Closed head injury, fall. TECHNIQUE: CT head was performed without administration of intravenous contrast. All CT scans at this location are performed using CT dose reduction for ALARA by means of automated exposure control. COMPARISON: CT head 01/21/2021 FINDINGS: CEREBRAL PARENCHYMA: Stable focus of subcortical encephalomalacia right frontal lobe. Age-appropriate generalized atrophy. HEMORRHAGE: None. EXTRA-AXIAL SPACES: Normal in size and morphology for the patient's age. VENTRICULAR SYSTEM: Normal in size and morphology for the patient's age. MIDLINE SHIFT / HERNIATION: None. CEREBELLUM / BRAINSTEM: Stable small bilateral cerebellar lacunar infarctions. ORBITS: Normal as visualized. SOFT TISSUES: No significant abnormality. SKULL: No significant abnormality. PARANASAL SINUSES / MASTOID AIR CELLS: Normal as visualized. ADDITIONAL FINDINGS: None. IMPRESSION: 1. No acute intracranial abnormality. Signer Name: Isaiah Alvarez II, MD Signed: 05/31/2021 8:03 PM Workstation Name: [id number] CT CHEST, ABDOMEN, AND PELVIS WITH CONTRAST INDICATION / CLINICAL INFORMATION: acute chest pain. TECHNIQUE: Axial CT images were obtained through the chest, abdomen, and pelvis after 100 cc Omnipaque [address] scans at this location are performed using CT dose reduction for ALARA by means of automated exposure control. COMPARISON: CT abdomen and pelvis 04/05/2019; CT angiography of the chest 05/11/2013 FINDINGS: CHEST LOWER NECK: Soft tissues of the lower neck including the thyroid demonstrate no significant abnormality evidence of acute pathology. THORACIC AORTA: Moderate atherosclerotic calcification without acute abnormality. PULMONARY ARTERY: Main pulmonary artery measures 3.8 cm, enlarged. Finding suggests presence of pulmonary artery hypertension. HEART: [id number] cardiomegaly. No pericardial effusion. CORONARY ARTERY CALCIFICATION: Mild. MEDIASTINUM / AGNES: No significant abnormality. ESOPHAGUS: Air-fluid level. No wall thickening. Small hiatal hernia. LYMPH NODES: No adenopathy demonstrated within the axilla, agnes, or mediastinum. LUNGS: Biapical capping. Small pleural-based pulmonary nodule partially calcified measuring 7 mm right upper lobe. Other small right upper lobe pleural-based pulmonary nodules are demonstrated. Lungs otherwise clear. PLEURA: No pleural effusion. No pneumothorax. THORACIC SOFT TISSUES: No significant abnormality of the chest wall or upper thoracic musculature. ADDITIONAL CHEST FINDINGS: None. ABDOMEN AND PELVIS LIVER: No significant abnormality. GALLBLADDER: No significant abnormality. BILE DUCTS: No significant abnormality. SPLEEN: No significant abnormality. PANCREAS: No significant abnormality. ADRENALS: No significant abnormality. RIGHT KIDNEY / URETER: Polycystic appearance of the right kidney demonstrates minimal change from comparison study. No solid masses. Mild prominence of the right ureter. Mild hydronephrosis. LEFT KIDNEY / URETER: Polycystic appearance of the left kidney demonstrates minimal change since comparison study. Early excretion of intravenous contrast versus small stone. Mild prominence of the left ureter. Mild hydronephrosis. STOMACH / DUODENUM / SMALL BOWEL: No significant abnormality. COLON: No significant abnormality. APPENDIX: No significant abnormality. PERITONEUM: No free air or free fluid within the abdomen/pelvis. LYMPH NODES: No significant adenopathy. AORTA / ARTERIES: Moderate atherosclerotic calcification without acute abnormality. IVC / VEINS: No significant abnormality. URINARY BLADDER: Bladder demonstrates a polypoid focus of soft tissue attenuation thought to extend from the prostate within the midline of the posterior bladder wall. REPRODUCTIVE ORGANS: Prostate is enlarged. ADDITIONAL ABDOMINAL/PELVIC FINDINGS: None. SKELETAL SYSTEM: Mild to moderate scoliosis of the lumbar spine with multilevel facet arthropathy in the mid and lower lumbar spine. No acute osseous findings within the chest, abdomen, or pelvis. IMPRESSION: 1. Mild bilateral hydronephrosis/hydroureter. This is thought to reflect sequelae of bladder outlet obstruction given the enlarged appearance of the prostate. Prostate neoplasm not excluded given the polypoid focus of soft tissue attenuation within the posterior bladder wall. 2. No imaging findings are present to clearly suggest etiology of chest pain. 3. Multiple small pulmonary nodules and biapical capping, no significant change since 2013 comparison study. Signer Name: Isaiah Alvarez II, MD Signed: 05/31/2021 8:30 PM Workstation Name: [id number] Critical care attestation.: If time is entered above; I have spent that time in minutes in the direct care of this critically ill patient, excluding procedure time. ED Disposition Clinical Impression: Acute chest pain, Bradycardia, Acute abdominal pain, Fall, Neck pain, Edema, End stage renal disease Disposition: 09 ADMITTED INPATIENT Is pt being admited?: Yes Does the pt Need Aspirin: Yes Condition: Good Instructions: Chest Pain (ED) Referrals: PRIMARY CARE, [Primary Care Provider] - 3-5 Days Heart Score - HEART Score History: Slightly suspicious EKG: Non-specific Age: > 65 Risk factors: > 3 risk factors or hx of atherosclerotic disease Troponin: 1-3x normal limit HEART Score: 6 - EKG Read Time Time EKG Completed: 15:29 EKG Read Time: 15:29 - Critical Actions Critical Actions: 4-6 pts:12-16.6% risk of adverse cardiac event. Should be admitted
--- NOTE | 2021-05-31 17:02 | XRay Report ---
CHEST 1 VIEW 05/31/2021 4:33 PM INDICATION / CLINICAL INFORMATION: Acute chest pain, blunt trauma. COMPARISON: Right rib series from 01/21/2021. FINDINGS: SUPPORT DEVICES: None. HEART / MEDIASTINUM: The cardiac silhouette is similarly prominent. No other significant abnormality. LUNGS / PLEURA: There is nonspecific bilateral interstitial prominence without evidence of a dense of consolidation. No significant pleural effusion. No pneumothorax. ADDITIONAL FINDINGS: No significant additional findings. IMPRESSION: Nonspecific bilateral interstitial prominence without other radiographic evidence of an acute chest i njury. Signer Name: Keegan Burden MD Signed: 05/31/2021 4:58 PM Workstation Name: [id number]
[2021-05-31 17:10] LABS: Basophils # (Auto) 0.1 K/mm3 (0.0-0.1); Basophils % (Auto) 1.4 % (0.0-1.8); Eosinophils # (Auto) 0.2 K/mm3 (0.0-0.4); Eosinophils % (Auto) 5.1 % (0.0-4.3); Hematocrit 37.2 % (35.5-45.6); Lymphocytes # (Auto) 1.6 K/mm3 (1.2-5.4); Lymphocytes % (Auto) 37.6 % (13.4-35.0); Mean Corpuscular HGB Conc 32 % (32-34); Mean Corpuscular Volume 94 fl (84-94); Monocytes # (Auto) 0.4 K/mm3 (0.0-0.8); Monocytes % (Auto) 8.3 % (0.0-7.3); Platelet Count 299 K/mm3 (140-440); Red Blood Count 3.94 M/mm3 (3.65-5.03); Red Cell Distribution Width 14.3 % (13.2-15.2)
[2021-05-31 17:18] LABS: INR 1.03 (0.87-1.13)
[2021-05-31 17:19] LABS: Partial Thromboplastin Time 28.9 Sec. (24.2-36.6)
[2021-05-31] MEDS ORDERED: ACETAMINOPHEN 325 MG TAB PO ONE (17:20)
[2021-05-31 17:25] LABS: Albumin 4.5 g/dL (3.9-5); Calcium 8.6 mg/dL (8.4-10.2)
[2021-05-31 17:37] LABS: Chol/HDL Ratio 2.24 %
[2021-05-31] MEDS ORDERED: SODIUM CHLORIDE 0.9% 100 ML IV PRN (18:37)
--- NOTE | 2021-05-31 21:03 | Cat Scan Report ---
CT CERVICAL SPINE WITHOUT CONTRAST INDICATION / CLINICAL INFORMATION: Neck pain status post fall. TECHNIQUE: Axial CT images were obtained through the cervical spine. Sagittal and coronal reformatted images were produced. All CT scans at this location are performed using CT dose reduction for ALARA by means of automated exposure control. COMPARISON: None available. FINDINGS: MANDIBLE: No significant abnormality of the visualized mandible or TMJs. SKULL BASE: No significant abnormality of the skull base. CRANIOCERVICAL JUNCTION: No significant abnormality of the craniocervical junction. ALIGNMENT: Reversal of lordosis likely positional. VERTEBRAL BODIES: Vertebral body heights fairly uniform throughout. DISK SPACES: Uniform disc spacing with moderate osteophyte formation along the anterior longitudinal ligament most noticeably in the mid to lower cervical spine. Small partially calcified right subartic ular posterior disc bulge at C4-5 resulting in minimal contact with the anterior thecal sac. FACET JOINTS: No significant abnormality of facet articulations. STENOSIS BY LEVEL: None. CENTRAL CANAL: No significant central stenosis. SOFT TISSUES: No acute findings. Moderate bilateral carotid artery calcification. THYROID: No significant abnormality. UPPER CHEST: Biapical scarring. ADDITIONAL FINDINGS: None. IMPRESSION: 1. No acute cervical spine injury. Mild effacement of the right anterolateral thecal sac at C4-5.. Signer Name: Isaiah Alvarez II, MD Signed: 05/31/2021 8:59 PM Workstation Name: [id number]
--- NOTE | 2021-05-31 21:07 | Cat Scan Report ---
CT HEAD WITHOUT CONTRAST INDICATION / CLINICAL INFORMATION: Closed head injury, fall. TECHNIQUE: CT head was performed without administration of intravenous contrast. All CT scans at this location are performed using CT dose reduction for ALARA by means of automated exposure control. COMPARISON: CT head 01/21/2021 FINDINGS: CEREBRAL PARENCHYMA: Stable focus of subcortical encephalomalacia right frontal lobe. Age-appropriate generalized atrophy. HEMORRHAGE: None. EXTRA-AXIAL SPACES: Normal in size and morphology for the patient's age. VENTRICULAR SYSTEM: Normal in size and morphology for the patient's age. MIDLINE SHIFT / HERNIATION: None. CEREBELLUM / BRAINSTEM: Stable small bilateral cerebellar lacunar infarctions. ORBITS: Normal as visualized. SOFT TISSUES: No significant abnormality. SKULL: No significant abnormality. PARANASAL SINUSES / MASTOID AIR CELLS: Normal as visualized. ADDITIONAL FINDINGS: None. IMPRESSION: 1. No acute intracranial abnormality. Signer Name: Isaiah Alvarez II, MD Signed: 05/31/2021 9:03 PM Workstation Name: [id number]
--- NOTE | 2021-05-31 21:34 | Cat Scan Report ---
CT CHEST, ABDOMEN, AND PELVIS WITH CONTRAST INDICATION / CLINICAL INFORMATION: acute chest pain. TECHNIQUE: Axial CT images were obtained through the chest, abdomen, and pelvis after 100 cc Omnipaqu e [address] scans at this location are performed using CT dose reduction for MARTY fofana of automated exposure control. COMPARISON: CT abdomen and pelvis 04/05/2019; CT angiography of the chest 05/11/2013 FINDINGS: CHEST LOWER NECK: Soft tissues of the lower neck including the thyroid demonstrate no significant abnormali ty evidence of acute pathology. THORACIC AORTA: Moderate atherosclerotic calcification without acute abnormality. PULMONARY ARTERY: Main pulmonary artery measures 3.8 cm, enlarged. Finding suggests presence of pulmo nary artery hypertension. HEART: [id number] cardiomegaly. No pericardial effusion. CORONARY ARTERY CALCIFICATION: Mild. MEDIASTINUM / EVANGELIST: No significant abnormality. ESOPHAGUS: Air-fluid level. No wall thickening. Small hiatal hernia. LYMPH NODES: No adenopathy demonstrated within the axilla, evangelist, or mediastinum. LUNGS: Biapical capping. Small pleural-based pulmonary nodule partially calcified measuring 7 mm righ t upper lobe. Other small right upper lobe pleural-based pulmonary nodules are demonstrated. Lungs ot herwise clear. PLEURA: No pleural effusion. No pneumothorax. THORACIC SOFT TISSUES: No significant abnormality of the chest wall or upper thoracic musculature. ADDITIONAL CHEST FINDINGS: None. ABDOMEN AND PELVIS LIVER: No significant abnormality. GALLBLADDER: No significant abnormality. BILE DUCTS: No significant abnormality. SPLEEN: No significant abnormality. PANCREAS: No significant abnormality. ADRENALS: No significant abnormality. RIGHT KIDNEY / URETER: Polycystic appearance of the right kidney demonstrates minimal change from com parison study. No solid masses. Mild prominence of the right ureter. Mild hydronephrosis. LEFT KIDNEY / URETER: Polycystic appearance of the left kidney demonstrates minimal change since comp arison study. Early excretion of intravenous contrast versus small stone. Mild prominence of the left ureter. Mild hydronephrosis. STOMACH / DUODENUM / SMALL BOWEL: No significant abnormality. COLON: No significant abnormality. APPENDIX: No significant abnormality. PERITONEUM: No free air or free fluid within the abdomen/pelvis. LYMPH NODES: No significant adenopathy. AORTA / ARTERIES: Moderate atherosclerotic calcification without acute abnormality. IVC / VEINS: No significant abnormality. URINARY BLADDER: Bladder demonstrates a polypoid focus of soft tissue attenuation thought to extend f rom the prostate within the midline of the posterior bladder wall. REPRODUCTIVE ORGANS: Prostate is enlarged. ADDITIONAL ABDOMINAL/PELVIC FINDINGS: None. SKELETAL SYSTEM: Mild to moderate scoliosis of the lumbar spine with multilevel facet arthropathy in the mid and lower lumbar spine. No acute osseous findings within the chest, abdomen, or pelvis. IMPRESSION: 1. Mild bilateral hydronephrosis/hydroureter. This is thought to reflect sequelae of bladder outlet o bstruction given the enlarged appearance of the prostate. Prostate neoplasm not excluded given the po lypoid focus of soft tissue attenuation within the posterior bladder wall. 2. No imaging findings are present to clearly suggest etiology of chest pain. 3. Multiple small pulmonary nodules and biapical capping, no significant change since 2014 comparison study. Signer Name: Isaiah Alvarez II, MD Signed: 05/31/2021 9:30 PM Workstation Name: [id number]
[2021-05-31] MEDS ORDERED: ASPIRIN 81 MG TAB CHEW PO ONE (22:21)
--- NOTE | 2021-05-31 22:46 | Nuclear Medicine Report ---
NUCLEAR MEDICINE PERFUSION LUNG SCAN INDICATION / CLINICAL INFORMATION: Acute chest pain. TECHNIQUE: 5 mCi of Tc-99m MAA were given by IV. COMPARISON: Chest radiograph dated today at 4:33 PM. FINDINGS: PERFUSION: No significant perfusion defects. ADDITIONAL FINDINGS: There are subtle patchy interstitial opacities in both mid to lower lung zones o n the CXR. IMPRESSION: Low probability for pulmonary embolism. Signer Name: Etienne Downey MD Signed: 05/31/2021 10:41 PM Workstation Name: [id number]
[2021-05-31 23:41] LABS: Hepatitis B Surface Antigen Non-Reactive (Negative); Hepatitis C Virus Antibody Non-Reactive (NonReactive)
[2021-06-01] MEDS ORDERED: MORPHINE 2 MG/1 ML INJ IV PRN (01:28)
[2021-06-01] MEDS ORDERED: ACETAMINOPHEN 325 MG TAB PO PRN (01:28)
[2021-06-01] MEDS ORDERED: NITROGLYCERIN 0.4 MG TAB SUBL SL PRN (01:28)
[2021-06-01] MEDS ORDERED: traMADol 50 MG TAB PO PRN (01:28)
--- NOTE | 2021-06-01 01:37 | History and Physical Report ---
History of Present Illness Date of examination: 06/01/21 Date of admission: 06/01/21 Chief complaint: Chest pain History of present illness: 75-year-old male with history of CVA, CHF, diabetes, CKD on hemodialysis was brought to the emergency room because of central and right-sided chest pain. The pain has been present since yesterday. Chest pain is 3-4 over 10, does not radiate to the back, arms or neck. He denies vomiting and diaphoresis. He endorses lower extremity swelling. He is not sure when his last hemodialysis session took place. The patient also endorses that he fell yesterday, landing on his left hemibody, and hit his head and his neck. He complains of left lateral thorax pain, and left upper quadrant abdominal pain.He is unclear as to whether or not he has recently taken aspirin. In the emergency room initial cardiac enzyme is negative troponin is 0.040, BUN is 96 creatinine is 9.4.CT scan of the brain, cervical spine, chest abdomen pelvis negative for acute traumatic findings. Still going to admit the patient I put the patient on chest pain pathway. 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.) Past Surgical History: Other (Right shoulder surgery) Social history: other (Former smoker) Family history: no significant family history Medications and Allergies Allergies Allergy/AdvReac Type Severity Reaction Status Date / Time Beta-Blockers AdvReac Anaphylaxis Verified 12/24/20 12:59 (Beta-Adrenergic Bloc Home Medications Medication Instructions Recorded Confirmed Last Taken Type AtorvaSTATin [Lipitor] 40 mg PO QHS #30 tablet 08/25/20 12/29/20 12/28/20 20:00 Rx Folic Acid [Folvite] 1 mg PO QDAY #30 tablet 08/25/20 12/29/20 12/28/20 09:00 Rx NIFEdipine XL [Procardia Xl] 30 mg PO BID #60 tablet 08/25/20 12/29/20 12/29/20 04:00 Rx Acetaminophen [Acetaminophen TAB] 500 mg PO Q8HR PRN #20 09/14/20 12/24/20 Unknown Rx Aspirin [Adult Aspirin] 120 mg PO DAILY 12/24/20 12/29/20 12/15/20 09:00 History Ergocalciferol(Vitamin D2)(Nf) 1,000 unit PO DAILY 12/24/20 12/29/20 12/28/20 09:00 History [Vitamin D (Nf)] ISOSORBIDE MONOnitrate [Imdur ER] 60 mg PO QDAY 12/24/20 12/29/20 12/28/20 09:00 History HYDROcodone/APAP 5-325 [[place] 1 each PO Q4HR PRN #30 tablet 12/29/20 Unknown Rx 5/325] traMADoL [Ultram] 50 mg PO Q6HR PRN #24 tablet 01/21/21 Unknown Rx Active Meds: Active Medications Sodium Chloride (Nacl 0.9%) 100 mls @ 999 mls/hr IV ERICH PRN PRN Reason: Hypotension Nitroglycerin (Nitroglycerin 0.4 Mg Tab Subl) 0.4 mg SL .Q5MIN PRN PRN Reason: Chest Pain Review of Systems All systems: negative Cardiovascular: chest pain, edema, shortness of breath, dyspnea on exertion Respiratory: shortness of breath, dyspnea on exertion Exam - Constitutional Vitals: Temp Pulse Resp BP Pulse Ox 97.6 F 53 L 18 166/63 99 05/31/21 19:55 05/31/21 19:55 05/31/21 20:00 05/31/21 19:55 05/31/21 19:55 General appearance: Present: no acute distress, well-nourished - EENT Eyes: Present: PERRL ENT: hearing intact, clear oral mucosa - Neck Neck: Present: supple, normal ROM - Respiratory Respiratory effort: normal Respiratory: bilateral: diminished - Cardiovascular Heart Sounds: Present: S1 & S2. Absent: rub, click - Extremities Extremities: pulses symmetrical, No edema Extremity abnormal: edema Peripheral Pulses: within normal limits - Abdominal General gastrointestinal: Present: soft, non-tender, non-distended, normal bowel sounds Male genitourinary: Present: normal - Integumentary Integumentary: Present: clear, warm, dry - Musculoskeletal Musculoskeletal: gait normal, strength equal bilaterally - Psychiatric Psychiatric: appropriate mood/affect, intact judgment & insight - Neurologic Neurologic: CNII-XII intact, moves all extremities HEART Score - HEART Score EKG: Non-specific Age: > 65 Risk factors: > 3 risk factors or hx of atherosclerotic disease Troponin: Troponin T 0.033 ng/mL (0.00-0.029) H 05/31/21 22:44 Troponin: 1-3x normal limit - Critical Actions Critical Actions: 4-6 pts:12-16.6% risk of adverse cardiac event. Should be admitted Results - Labs CBC & Chem 7: 05/31/21 16:41 05/31/21 16:41 Labs: Laboratory Last Values WBC 4.4 K/mm3 (4.5-11.0) L 05/31/21 16:41 RBC 3.94 M/mm3 (3.65-5.03) 05/31/21 16:41 Hgb 12.0 gm/dl (11.8-15.2) 05/31/21 16:41 Hct 37.2 % (35.5-45.6) 05/31/21 16:41 MCV 94 fl (84-94) 05/31/21 16:41 MCH 31 pg (28-32) 05/31/21 16:41 MCHC 32 % (32-34) 05/31/21 16:41 RDW 14.3 % (13.2-15.2) 05/31/21 16:41 Plt Count 299 K/mm3 (140-440) 05/31/21 16:41 Lymph % (Auto) 37.6 % (13.4-35.0) H 05/31/21 16:41 [place] % (Auto) 8.3 % (0.0-7.3) H 05/31/21 16:41 Eos % (Auto) 5.1 % (0.0-4.3) H 05/31/21 16:41 Baso % (Auto) 1.4 % (0.0-1.8) 05/31/21 16:41 Lymph # (Auto) 1.6 K/mm3 (1.2-5.4) 05/31/21 16:41 [place] # (Auto) 0.4 K/mm3 (0.0-0.8) 05/31/21 16:41 Eos # (Auto) 0.2 K/mm3 (0.0-0.4) 05/31/21 16:41 Baso # (Auto) 0.1 K/mm3 (0.0-0.1) 05/31/21 16:41 Seg Neutrophils % 47.6 % (40.0-70.0) 05/31/21 16:41 Seg Neutrophils # 2.1 K/mm3 (1.8-7.7) 05/31/21 16:41 PT 14.7 Sec. (12.2-14.9) 05/31/21 16:41 INR 1.03 (0.87-1.13) 05/31/21 16:41 APTT 28.9 Sec. (24.2-36.6) 05/31/21 16:41 D-Dimer 364.04 ng/mlDDU (0-234) H 05/31/21 16:41 Sodium 139 mmol/L (137-145) 05/31/21 16:41 Potassium 5.0 mmol/L (3.6-5.0) 05/31/21 16:41 Chloride 99.2 mmol/L (98-107) 05/31/21 16:41 Carbon Dioxide 21 mmol/L (22-30) L 05/31/21 16:41 Anion Gap 24 mmol/L 05/31/21 16:41 BUN 96 mg/dL (9-20) H 05/31/21 16:41 Creatinine 9.4 mg/dL (0.8-1.3) H 05/31/21 16:41 Estimated GFR 7 ml/min 05/31/21 16:41 BUN/Creatinine Ratio 10 % 05/31/21 16:41 Glucose 88 mg/dL (75-100) 05/31/21 16:41 Calcium 8.6 mg/dL (8.4-10.2) 05/31/21 16:41 Total Bilirubin 0.30 mg/dL (0.1-1.2) 05/31/21 16:41 AST 18 units/L (5-40) 05/31/21 16:41 ALT 20 units/L (7-56) 05/31/21 16:41 Alkaline Phosphatase 89 units/L (35-129) 05/31/21 16:41 Troponin T 0.033 ng/mL (0.00-0.029) H 05/31/21 22:44 Total Protein 8.1 g/dL (6.3-8.2) 05/31/21 16:41 Albumin 4.5 g/dL (3.9-5) 05/31/21 16:41 Albumin/Globulin Ratio 1.3 % 05/31/21 16:41 Triglycerides 39 mg/dL (2-149) 05/31/21 16:41 Cholesterol 139 mg/dL (50-199) 05/31/21 16:41 LDL Cholesterol Direct 75 mg/dL (50-130) 05/31/21 16:41 HDL Cholesterol 62 mg/dL (40-59) H 05/31/21 16:41 Cholesterol/HDL Ratio 2.24 % 05/31/21 16:41 Plasma/Serum Alcohol < 0.01 % (0-0.07) 05/31/21 16:41 Hepatitis A IgM Ab Non-reactive (NonReactive) 05/31/21 22:44 Hep Bs Antigen Non-reactive (Negative) 05/31/21 22:44 Hep B Core IgM Ab Non-reactive (NonReactive) 05/31/21 22:44 Hepatitis C Antibody Non-reactive (NonReactive) 05/31/21 22:44 - Imaging and Cardiology Chest x-ray: report reviewed CT scan - chest: report reviewed CT Scan - head: report reviewed Assessment and Plan VTE prophylaxis?: Chemical Plan of care discussed with patient/family: Yes - Patient Problems (1) Acute coronary syndrome Current Visit: Yes Status: Acute Plan to address problem: Admit the patient to the medical telemetry. Aspirin 325 mg p.o. daily. Lipitor 40 mg p.o. daily. Nitroglycerin as needed. Serial cardiac enzymes. Echocardiogram. Cardiology evaluation (2) End stage renal disease Current Visit: Yes Status: Acute Plan to address problem: We will consult nephrology for hemodialysis. Recheck BMP in the morning. Avoid nephrotoxic drug (3) Fall Current Visit: Yes Status: Acute Plan to address problem: Patient is on fall precaution. Will consult physical therapy for evaluation (4) CHF (congestive heart failure) Current Visit: No Status: Acute Qualifiers: Heart failure chronicity: acute Plan to address problem: Fluid restriction. Daily weight. Input output. Echocardiogram. Cardiology evaluation (5) CVA (cerebral vascular accident) Current Visit: No Status: Acute Qualifiers: CVA mechanism: unspecified Qualified Code(s): I63.9 - Cerebral infarction, unspecified Plan to address problem: Aspirin 325 mg p.o. daily. Lipitor 40 mg p.o. daily. Outpatient follow-up with neurology (6) Diabetes Current Visit: No Status: Acute Plan to address problem: Humalog sliding scale moderate dose coverage Accu-Chek every 6 hours. Diabetic education. Repeat BMP in the morning (7) Elevated troponin Current Visit: No Status: Acute Plan to address problem: Aspirin 325 mg p.o. daily. Lipitor 40 mg p.o. daily. Nitroglycerin as needed. Serial cardiac enzymes. Echocardiogram. Cardiology evaluation (8) DVT prophylaxis Current Visit: No Status: Acute Plan to address problem: Heparin 5000 units subcu every 12 hours for DVT prophylaxis. Pepcid 20 mg p.o. twice daily for GI prophylaxis. Patient is a full code
[2021-06-01] MEDS ORDERED: DEXTROSE 10% *Hypoglycemia IV PRN (01:46)
[2021-06-01] MEDS ORDERED: hydrALAZINE 20 MG/1 ML INJ IV PRN (02:03)
[2021-06-01] MEDS: INSULIN LISPRO 100 UNIT/ML SUB-Q SCH ×2 (06:00→18:32)
[2021-06-01 06:36] LABS: Basophils % (Auto) 1.3 % (0.0-1.8); Eosinophils # (Auto) 0.2 K/mm3 (0.0-0.4); Eosinophils % (Auto) 5.2 % (0.0-4.3); Hematocrit 37.7 % (35.5-45.6); Hemoglobin 12.1 gm/dl (11.8-15.2); Lymphocytes % (Auto) 32.3 % (13.4-35.0); Mean Corpuscular HGB Conc 32 % (32-34); Mean Corpuscular Volume 94 fl (84-94); Monocytes # (Auto) 0.3 K/mm3 (0.0-0.8); Platelet Count 259 K/mm3 (140-440); Red Blood Count 4.03 M/mm3 (3.65-5.03); Red Cell Distribution Width 14.3 % (13.2-15.2)
[2021-06-01 06:55] LABS: Calcium 8.3 mg/dL (8.4-10.2)
--- NOTE | 2021-06-01 09:38 | Consultation ---
History of Present Illness - Reason for Consult Consult date: 06/01/21 end stage renal disease - History of Present Illness This is a 75 year-old man with ESRD who presents for chest pain, back pain s/p fall Patient usually dialyzes // at [facility]. Last HD 05/28 Denies any recent issues with HD, including dizziness, lightheadedness, cramping, chest pain on HD. Currently, patient denies any issues including dyspnea, edema, access issues, nausea, vomiting, headaches. Notes that yesterday he fell prior to dialysis, and was unable to start outpatient HD due to chest pain, back pain, and neck pain. Does not know why he fell but thinks it was a mechanical fall. 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) Past Surgical History: Other (Right shoulder surgery) Social history: other (Former smoker) Family history: no significant family history Medications and Allergies Allergies Allergy/AdvReac Type Severity Reaction Status Date / Time Beta-Blockers AdvReac Anaphylaxis Verified 12/24/20 12:59 (Beta-Adrenergic Bloc Home Medications Medication Instructions Recorded Confirmed Last Taken Type AtorvaSTATin [Lipitor] 40 mg PO QHS #30 tablet 08/25/20 12/29/20 12/28/20 20:00 Rx Folic Acid [Folvite] 1 mg PO QDAY #30 tablet 08/25/20 12/29/20 12/28/20 09:00 Rx NIFEdipine XL [Procardia Xl] 30 mg PO BID #60 tablet 08/25/20 12/29/20 12/29/20 04:00 Rx Acetaminophen [Acetaminophen TAB] 500 mg PO Q8HR PRN #20 09/14/20 12/24/20 Unknown Rx Aspirin [Adult Aspirin] 120 mg PO DAILY 12/24/20 12/29/20 12/15/20 09:00 History Ergocalciferol(Vitamin D2)(Nf) 1,000 unit PO DAILY 12/24/20 12/29/20 12/28/20 09:00 History [Vitamin D (Nf)] ISOSORBIDE MONOnitrate [Imdur ER] 60 mg PO QDAY 12/24/20 12/29/2012/28/21 09:00 History HYDROcodone/APAP 5-325 [[place] 1 each PO Q4HR PRN #30 tablet 12/29/20 Unknown Rx 5/325] traMADoL [Ultram] 50 mg PO Q6HR PRN #24 tablet 01/21/21 Unknown Rx Active Meds: Active Medications Acetaminophen (Acetaminophen 325 Mg Tab) 650 mg PO Q6H PRN PRN Reason: Pain, Mild (1-3) Aspirin (Aspirin Ec 325 Mg Tab) 325 mg PO QDAY [facility] Atorvastatin Calcium (Atorvastatin 40 Mg Tab) 40 mg PO QHS [facility] Dextrose (Dextrose 10% *Hypoglycemia) 0 ml IV DIRECT PRN; Protocol PRN Reason: Hypoglycemia Folic Acid (Folic Acid 1 Mg Tab) 1 mg PO QDAY [facility] Heparin Sodium (Porcine) (Heparin 5,000 Unit/1 Ml Vial) 5,000 unit SUB-Q Q12HR [facility] Hydralazine HCl (Hydralazine 20 Mg/1 Ml Inj) 10 mg IV Q6HR PRN PRN Reason: Hypertension Last Admin: 06/01/21 02:30 Dose: 10 mg Sodium Chloride (Nacl 0.9%) 100 mls @ 999 mls/hr IV ERICH PRN PRN Reason: Hypotension Insulin Human Lispro (Insulin Lispro 100 Unit/Ml) 0 unit SUB-Q Q6HR [facility]; Protocol Last Admin: 06/01/21 06:00 Dose: Not Given Isosorbide Mononitrate (Isosorbide Mononitrate Er 60 Mg Tab) 60 mg PO QDAY [facility] Morphine Sulfate (Morphine 2 Mg/1 Ml Inj) 2 mg IV Q5MIN PRN PRN Reason: Chest Pain unrelieved by NTG Nifedipine (Nifedipine Xl 30 Mg Tab) 30 mg PO BID [facility] Nitroglycerin (Nitroglycerin 0.4 Mg Tab Subl) 0.4 mg SL Q5M PRN PRN Reason: Chest Pain Pantoprazole Sodium (Pantoprazole 40 Mg Tab) 40 mg PO QDAY [facility] Sodium Chloride (Sodium Chloride 0.9% 10 Ml Flush Syringe) 10 ml IV PRN PRN PRN Reason: LINE FLUSH Tramadol HCl (Tramadol 50 Mg Tab) 50 mg PO Q6H PRN PRN Reason: Pain, Moderate (4-6) Review of Systems All systems: negative (as per HPI) Exam - Vital Signs Vital signs: Vital Signs Temp Pulse Resp BP Pulse Ox 97.5 F L 51 L 18 155/67 97 05/31/21 13:22 05/31/21 13:22 05/31/21 13:22 05/31/21 13:22 05/31/21 13:22 - Physical Exam Narrative exam: Constitutional: no acute distress Head: NC/AT Neck: supple Lungs: clear to auscultation CV: RRR, no M/R/G Abdomen: soft, non-tender, bowel sounds present Back: nontender Extremities: no edema, pulses WNL Skin: intact Neuro: no focal deficits, alert and oriented x4 Results - Lab Results 06/01/21 05:39 06/01/21 05:39 Most recent lab results Calcium 8.3 mg/dL (8.4-10.2) L 06/01/21 05:39 Assessment and Plan This is a 75 year old man who presents with chest pain, back pain, s/p fall. # ESRD: HD today for solute/volume clearance (note BUN ~100, K 5.3, HCO3 18). Plan to transition back to // schedule as able or prn. If stable today, ok to discharge from renal standpoint after HD and return to outpatient HD center tomorrow - daily labs - renally dose meds - avoid nephrotoxins - renal diet - verbal consent obtained for HD # Anemia: last hemoglobin 12.1, no immediate need for ESAs # HTN: UF as tolerated. BP reasonable this AM # Secondary Hyperparathyroidism: continue home binders as needed, vitamin D analogs prn # Chest Pain: cardiology consult pending # Fall, Back Pain: reviewed CT scans, no acute issues noted
[2021-06-01] MEDS ORDERED: FOLIC ACID 1 MG TAB PO SCH (10:00)
[2021-06-01] MEDS ORDERED: amLODIPine 5 MG TAB PO SCH (10:00)
[2021-06-01] MEDS ORDERED: HEPARIN 5,000 UNIT/1 ML VIAL SUB-Q SCH (10:00)
[2021-06-01] MEDS ORDERED: NIFEdipine XL 30 MG TAB PO SCH (10:00)
[2021-06-01] MEDS ORDERED: PANTOPRAZOLE 40 MG TAB PO SCH (10:00)
--- NOTE | 2021-06-01 13:08 | Consultation ---
History of Present Illness Consult date: 06/01/21 Consult reason: chest pain History of present illness: The patient is a 75-year-old man with end-stage renal disease on hemodialysis, and chronic hypertension. He was brought to the emergency room from his dialysis center yesterday, for complaints of generalized body aches and pains. The patient states that prior to his dialysis, he had sustained a ground-level fall at home. He usually ambulates with difficulty, using a cane, and states that while going into his bathroom, he lost his balance while attempted to make a sharp turn and fell on his left side. He is uncertain whether he lost any consciousness, but was able to present for his routine dialysis. While there, he complained of generalized pains on his left side in addition to some nonspecific chest pain, following which he was referred to the emergency room. Work-up so far in the emergency room, ECG is sinus bradycardia in the low 50s, there is left ventricle hypertrophy with marked repolarization abnormalities of LVH, unchanged from his baseline. Troponin levels x2 are nonspecific, measuring 0.03 and 0.04. Chest x-ray shows a mild to moderate cardiomegaly, represented mostly by enlargement of the right heart, but no interstitial edema or heart failure. The patient has had extensive cardiac ischemic work-up in recent years. In early 2013, a cardiac catheterization at this hospital demonstrated angiographically normal coronary arteries. Twice in 2017, he had negative thallium stress test, and again in March 2019 there was another negative thallium stress test. Serial left ventricular function assessments over the years have documented normal left ventricular systolic function. Past History Past Medical History: arthritis, diabetes, ESRD, hypertension, renal failure, seizures, other (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) Past Surgical History: Other (Right shoulder surgery) Social history: other (Former smoker) Family history: no significant family history Medications and Allergies Allergies Allergy/AdvReac Type Severity Reaction Status Date / Time Beta-Blockers AdvReac Anaphylaxis Verified 12/24/20 12:59 (Beta-Adrenergic Bloc Home Medications Medication Instructions Recorded Confirmed Last Taken Type AtorvaSTATin [Lipitor] 40 mg PO QHS #30 tablet 08/25/20 12/29/20 12/28/20 20:00 Rx Folic Acid [Folvite] 1 mg PO QDAY #30 tablet 08/25/20 12/29/20 12/28/20 09:00 Rx NIFEdipine XL [Procardia Xl] 30 mg PO BID #60 tablet 08/25/20 12/29/20 12/29/20 04:00 Rx Acetaminophen [Acetaminophen TAB] 500 mg PO Q8HR PRN #20 09/14/20 12/24/20 Unkno wn Rx Aspirin [Adult Aspirin] 120 mg PO DAILY 12/24/20 12/29/20 12/15/20 09:00 History Ergocalciferol(Vitamin D2)(Nf) 1,000 unit PO DAILY 12/24/20 12/29/20 12/28/20 09:00 History [Vitamin D (Nf)] ISOSORBIDE MONOnitrate [Imdur ER] 60 mg PO QDAY 12/24/20 12/29/20 12/28/20 09:00 History HYDROcodone/APAP 5-325 [Crandall 1 each PO Q4HR PRN #30 tablet 12/29/20 Unknown Rx 5/325] traMADoL [Ultram] 50 mg PO Q6HR PRN #24 tablet 01/21/21 Unknown Rx Active Meds: Active Medications Acetaminophen (Acetaminophen 325 Mg Tab) 650 mg PO Q6H PRN PRN Reason: Pain, Mild (1-3) Aspirin (Aspirin Ec 325 Mg Tab) 325 mg PO QDAY [facility] Atorvastatin Calcium (Atorvastatin 40 Mg Tab) 40 mg PO QHS [facility] Dextrose (Dextrose 10% *Hypoglycemia) 0 ml IV DIRECT PRN; Protocol PRN Reason: Hypoglycemia Folic Acid (Folic Acid 1 Mg Tab) 1 mg PO QDAY [facility] Heparin Sodium (Porcine) (Heparin 5,000 Unit/1 Ml Vial) 5,000 unit SUB-Q Q12HR [facility] Hydralazine HCl (Hydralazine 20 Mg/1 Ml Inj) 10 mg IV Q6HR PRN PRN Reason: Hypertension Last Admin: 06/01/21 02:30 Dose: 10 mg Sodium Chloride (Nacl 0.9%) 100 mls @ 999 mls/hr IV ERICH PRN PRN Reason: Hypotension Insulin Human Lispro (Insulin Lispro 100 Unit/Ml) 0 unit SUB-Q Q6HR [facility]; Protocol Last Admin: 06/01/21 06:00 Dose: Not Given Isosorbide Mononitrate (Isosorbide Mononitrate Er 60 Mg Tab) 60 mg PO QDAY [facility] Morphine Sulfate (Morphine 2 Mg/1 Ml Inj) 2 mg IV Q5MIN PRN PRN Reason: Chest Pain unrelieved by NTG Nifedipine (Nifedipine Xl 30 Mg Tab) 30 mg PO BID MICHA Nitroglycerin (Nitroglycerin 0.4 Mg Tab Subl) 0.4 mg SL Q5M PRN PRN Reason: Chest Pain Pantoprazole Sodium (Pantoprazole 40 Mg Tab) 40 mg PO QDAY [facility] Sodium Chloride (Sodium Chloride 0.9% 10 Ml Flush Syringe) 10 ml IV PRN PRN PRN Reason: LINE FLUSH Tramadol HCl (Tramadol 50 Mg Tab) 50 mg PO Q6H PRN PRN Reason: Pain, Moderate (4-6) Review of Systems Cardiovascular: chest pain, no orthopnea, no palpitations, no rapid/irregular heart beat, no edema, no syncope, no lightheadedness, no shortness of breath Physical Examination Vital Signs Temp Pulse Resp BP Pulse Ox 97.5 F L 51 L 18 155/67 97 05/31/21 13:22 05/31/21 13:22 05/31/21 13:22 05/31/21 13:22 05/31/21 13:22 General appearance: no acute distress HEENT: Positive: PERRL Neck: Positive: neck supple Cardiac: Positive: Reg Rate and Rhythm Lungs: Positive: Decreased Breath Sounds Neuro: Positive: Grossly Intact Abdomen: Positive: Soft Male genitourinary: Positive: deferred Skin: Positive: Clear Extremities: Absent: edema Results 06/01/21 05:39 06/01/21 05:39 Cardiac Enzymes 05/31/21 Range/Units 16:41 AST 18 (5-40) units/L Coagulation 05/31/21 Range/Units 16:41 PT 14.7 (12.2-14.9) Sec. INR 1.03 (0.87-1.13) APTT 28.9 (24.2-36.6) Sec. Lipids 05/31/21 Range/Units 16:41 Triglycerides 39 (2-149) mg/dL Cholesterol 139 (50-199) mg/dL HDL Cholesterol 62 H (40-59) mg/dL Cholesterol/HDL Ratio 2.24 % CBC 05/31/21 06/01/21 Range/Units 16:41 05:39 WBC 4.4 L 3.2 L (4.5-11.0) K/mm3 RBC 3.94 4.03 (3.65-5.03) M/mm3 Hgb 12.0 12.1 (11.8-15.2) gm/dl Hct 37.2 37.7 (35.5-45.6) % Plt Count 299 259 (140-440) K/mm3 Lymph # (Auto) 1.6 1.0 L (1.2-5.4) K/mm3 [place]undy # (Auto) 0.4 0.3 (0.0-0.8) K/mm3 Eos # (Auto) 0.2 0.2 (0.0-0.4) K/mm3 Baso # (Auto) 0.1 0.0 (0.0-0.1) K/mm3 Comprehensive Metabolic Panel 05/31/21 06/01/21 Range/Units 16:41 05:39 Sodium 139 139 (137-145) mmol/L Potassium 5.0 5.3 H (3.6-5.0) mmol/L Chloride 99.2 103.2 (98-107) mmol/L Carbon Dioxide 21 L 16 L (22-30) mmol/L BUN 96 H 96 H (9-20) mg/dL Creatinine 9.4 H 9.8 H (0.8-1.3) mg/dL Glucose 88 104 H (75-100) mg/dL Calcium 8.6 8.3 L (8.4-10.2) mg/dL AST 18 (5-40) units/L ALT 20 (7-56) units/L Alkaline Phosphatase 89 (35-129) units/L Total Protein 8.1 (6.3-8.2) g/dL Albumin 4.5 (3.9-5) g/dL EKG interpretations - Telemetry EKG Rhythm: Sinus Bradycardia (With left ventricle hypertrophy and marked repolarization abnormalities of LVH) Assessment and Plan - Patient Problems (1) Chest pain Current Visit: Yes Status: Acute Plan to address problem: Chest pain is atypical, following a ground-level fall at home, associated with generalized body aches and pains ostensibly from musculoskeletal trauma. There is no clinical indication of angina. Patient has had extensive prior ischemic work-up over the past several years including a cardiac catheterization and multiple stress test all negative. We will continue conservative management. (2) Chronic hypertension Current Visit: Yes Status: Acute Plan to address problem: Patient has chronic hypertension, will continue current management with nifedipine XL. Avoid AV jacqui blocking agents due to underlying sinus bradycardia. (3) Bradycardia Current Visit: Yes Status: Acute Plan to address problem: Patient has a's persistent sinus bradycardia, will avoid AV jacqui blocking agents, we will check thyroid levels. Due to his poor description of his fall at home, unable to state whether it was due to syncope, it would be prudent in the outpatient setting to order a 2 to 4-week event monitor.
[2021-06-01] MEDS ORDERED: diphenhydrAMINE 50 MG/ML VIAL IV SCH (14:00)
[2021-06-01] MEDS ORDERED: FAMOTIDINE 20 MG/2 ML INJ IV SCH (14:00)
--- NOTE | 2021-06-01 14:07 | Discharge Summary ---
Providers - Providers Date of Admission: 06/01/21 01:28 Date of discharge: 06/01/21 Attending physician: BRANDEE GONZALEZ 05/31/21 16:25 Consult to Physician [CONS] Stat Comment: Consulting Provider: DANITA FISCHER Physician Instructions: Reason For Exam: esrd 06/01/21 Consult to Cardiac Rehabilitation [CONS] Routine Reason For Exam: Phase I 06/01/21 01:28 Consult to Cardiology [CONS] Routine Consulting Provider: USMAN HAYS Reason For Exam: Elevated troponin Consult to Dietitian/Nutrition [CONS] Routine Physician Instructions: Reason For Exam: Reason for Consult: Diet education Primary care physician: ASSISTANT FRONT OFFICE MANAGER Hospitalization Condition: Good Hospital course: 75-year-old male with history of CVA, CHF, diabetes, CKD on hemodialysis was brought to the emergency room because of central and right-sided chest pain. The pain has been present since yesterday. Chest pain is 3-4 over 10, does not radiate to the back, arms or neck. He denies vomiting and diaphoresis. He endorses lower extremity swelling. He is not sure when his last hemodialysis session took place. The patient also endorses that he fell yesterday, landing on his left hemibody, and hit his head and his neck. He complains of left lateral thorax pain, and left upper quadrant abdominal pain.He is unclear as to whether or not he has recently taken aspirin. In the emergency room initial cardiac enzyme is negative troponin is 0.040, BUN is 96 creatinine is 9.4.CT scan of the brain, cervical spine, chest abdomen pelvis negative for acute traumatic findings. Still going to admit the patient I put the patient on chest pain pathway. We also order echocardiogram and consult cardiology for evaluation Assessment and Plan VTE prophylaxis?: Chemical Plan of care discussed with patient/family: Yes - Patient Problems (1) Acute coronary syndrome Current Visit: Yes Status: Acute Plan to address problem: The patient is a 75-year-old man with end-stage renal disease on hemodialysis, and chronic hypertension. He was brought to the emergency room from his dialysis center yesterday, for complaints of generalized body aches and pains. The patient states that prior to his dialysis, he had sustained a ground-level fall at home. He usually ambulates with difficulty, using a cane, and states that while going into his bathroom, he lost his balance while attempted to make a sharp turn and fell on his left side. He is uncertain whether he lost any consciousness, but was able to present for his routine dialysis. While there, he complained of generalized pains on his left side in addition to some nonspecific chest pain, following which he was referred to the emergency room. Work-up so far in the emergency room, ECG is sinus bradycardia in the low 50s, there is left ventricle hypertrophy with marked repolarization abnormalities of LVH, unchanged from his baseline. Troponin levels x2 are nonspecific, measuring 0.03 and 0.04. Chest x-ray shows a mild to moderate cardiomegaly, represented mostly by enlargement of the right heart, but no interstitial edema or heart failure. The patient has had extensive cardiac ischemic work-up in recent years. In early 2013, a cardiac catheterization at this hospital demonstrated angiographically normal coronary arteries. Twice in 2017, he had negative thallium stress test, and again in March 2019 there was another negative thallium stress test. Serial left ventricular function assessments over the years have documented normal left ventricular systolic function. No further work-up (2) End stage renal disease Current Visit: Yes Status: Acute Plan to address problem: Patient had hemodialysis today (3) Fall Current Visit: Yes Status: Acute Plan to address problem: Needs home physical therapy (4) CHF (congestive heart failure) Current Visit: No Status: Acute Qualifiers: Heart failure chronicity: acute Plan to address problem: Fluid restriction. Daily weight. Input output. Echocardiogram. Cardiology evaluation (5) CVA (cerebral vascular accident) Current Visit: No Status: Acute Qualifiers: CVA mechanism: unspecified Qualified Code(s): I63.9 - Cerebral infarction, unspecified Plan to address problem: Aspirin 325 mg p.o. daily. Lipitor 40 mg p.o. daily. Outpatient follow-up with neurology (6) Diabetes Current Visit: No Status: Acute Plan to address problem: Humalog sliding scale moderate dose coverage Accu-Chek every 6 hours. Diabetic education. Repeat BMP in the morning (7) Elevated troponin Current Visit: No Status: Acute Plan to address problem: Aspirin 325 mg p.o. daily. Lipitor 40 mg p.o. daily. Nitroglycerin as needed. Serial cardiac enzymes. Echocardiogram. Cardiology evaluation (8) DVT prophylaxis Current Visit: No Status: Acute Plan to address problem: Heparin 5000 units subcu every 12 hours for DVT prophylaxis. Pepcid 20 mg p.o. twice daily for GI prophylaxis. Patient is a full code Disposition: 01 HOME / SELF CARE / HOMELESS Final Discharge Diagnosis (Prints w/discharge instructions): Acute coronary syndrome. End-stage renal disease on hemodialysis. CHF. Fall and debility. Diabetes. Old CVA. Elevated troponin Time spent for discharge: 35 minutes - Discharge Diagnoses (1) Acute coronary syndrome Status: Acute (2) End stage renal disease Status: Acute (3) Chronic hypertension Status: Acute (4) CHF (congestive heart failure) Status: Acute Qualifiers: Heart failure chronicity: acute (5) CVA (cerebral vascular accident) Status: Acute Qualifiers: CVA mechanism: unspecified Qualified Code(s): I63.9 - Cerebral infarction, unspecified (6) DVT prophylaxis Status: Acute (7) Diabetes Status: Acute Core Measure Documentation - Palliative Care Palliative Care/ Comfort Measures: Not Applicable - Core Measures Any of the following diagnoses?: none Exam - Constitutional Vitals: Temp Pulse Resp BP Pulse Ox 98.2 F 55 L 20 116/41 98 06/01/21 10:10 06/01/21 12:30 06/01/21 10:10 06/01/21 12:30 06/01/21 10:10 General appearance: Present: no acute distress, well-nourished - EENT Eyes: Present: PERRL ENT: hearing intact, clear oral mucosa - Neck Neck: Present: supple, normal ROM - Respiratory Respiratory effort: normal Respiratory: bilateral: CTA - Cardiovascular Heart rate: 78 Rhythm: regular Heart Sounds: Present: S1 & S2. Absent: rub, click - Extremities Extremities: pulses symmetrical, No edema Peripheral Pulses: within normal limits - Abdominal General gastrointestinal: Present: soft, non-tender, non-distended, normal bowel sounds Male genitourinary: Present: normal - Integumentary Integumentary: Present: clear, warm, dry - Musculoskeletal Musculoskeletal: gait normal, strength equal bilaterally - Psychiatric Psychiatric: appropriate mood/affect, intact judgment & insight - Neurologic Neurologic: CNII-XII intact, moves all extremities Plan Activity: no restrictions Diet: renal Special Instructions: physical therapy Follow up with: CAMILLE ZAMORA MD [Primary Care Provider] - 3-5 Days FREDI GREEN MD [Staff Physician] - 7 Days MARÍA ELENA QUINTANA MD [Staff Physician] - 7 Days
[2021-06-01 17:34] VITALS: BP 179/75
[2021-06-02] MEDS ORDERED: ASPIRIN EC 325 MG TAB PO SCH (10:00)
--- NOTE | 2021-06-02 11:20 | Electrocardiograph Report ---
[facility] Test Date: 2021-05-31 Test Time: 15:29:13 Pat Name: VALENTINA DIAZ Department: Room: A466 1 Gender: M Wrist Closer: ERASMO : 1945 Requested By: CORA HALL Order Number: [id number] Reading MD: Nathan Gonsalez Measurements Intervals [place] Rate: 52 P: 65 MN: 280 QRS: 17 QRSD: 88 T: 117 QT: 505 QTc: 469 Interpretive Statements Sinus bradycardia Prolonged MN interval LVH with secondary repolarization abnormality Compared to ECG 08/18/2020 17:45:32 Sinus rhythm no longer present Electronically Signed On 06-02-2021 11:20:04 EDT by Nathan Gonsalez
--- NOTE | 2021-06-02 11:23 | Electrocardiograph Report ---
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
== END 2021-06-01 18:39 | disposition home or self-care (01) ==
LOC: ED 13:19 → 4A 06-01 01:28 → INTOOBSV 06-01 01:28 → 4A 06-01 03:45
PROVIDERS: ADMIT Hospitalist; ATTEND Internal Medicine
DX: I24.9 Acute ischemic heart disease, unspecified (principal); R07.89 Other chest pain; I13.2 Hypertensive heart and chronic kidney disease with heart failure and with stage 5 chronic kidney disease, or end stage renal disease; I50.9 Heart failure, unspecified; N18.6 End stage renal disease; E11.22 Type 2 diabetes mellitus with diabetic chronic kidney disease; I63.9 Cerebral infarction, unspecified; R77.8 Other specified abnormalities of plasma proteins; M19.90 Unspecified osteoarthritis, unspecified site; R56.9 Unspecified convulsions; M54.9 Dorsalgia, unspecified; R00.1 Bradycardia, unspecified; R10.9 Unspecified abdominal pain; M54.2 Cervicalgia; N25.81 Secondary hyperparathyroidism of renal origin; R60.9 Edema, unspecified; Z91.19 Patient's noncompliance with other medical treatment and regimen; Z87.891 Personal history of nicotine dependence; Z79.899 Other long term (current) drug therapy; Z98.890 Other specified postprocedural states; Z79.82 Long term (current) use of aspirin; Z86.11 Personal history of tuberculosis; W19.XXXA Unspecified fall, initial encounter; Y92.89 Other specified places as the place of occurrence of the external cause; Y93.89 Activity, other specified; Y99.8 Other external cause status
CPT/HCPCS: 36415; 70450; 71045; 71260; 72125; 74177; 78580; 80048; 80053; 80061; 80074; 82550; 83735; 83880; 84443; 84484; 85025; 85379; 85610; 85730; 87641; 93005; 96374; 96375; 99285; A9540; G0378; J0360; J1200; J3490; Q9967; 80320; G0480; J2270

== ENCOUNTER 2021-08-11 13:18 | Inpatient (IN) | payer MEDICARE ==
--- NOTE | 2021-08-11 15:13 | XRay Report ---
CHEST 1 VIEW 08/11/2021 2:05 PM INDICATION / CLINICAL INFORMATION: Weakness. COMPARISON: 05/31/2021 FINDINGS: SUPPORT DEVICES: None. HEART / MEDIASTINUM: No significant abnormality. LUNGS / PLEURA: No significant pulmonary or pleural abnormality. No pneumothorax. ADDITIONAL FINDINGS: No significant additional findings. IMPRESSION: 1. No acute findings. Signer Name: All Bear MD Signed: 08/11/2021 3:09 PM Workstation Name: [id number]
--- NOTE | 2021-08-11 16:03 | Cat Scan Report ---
CT BRAIN: 08/11/2021 INDICATION / CLINICAL INFORMATION: Weakness. COMPARISON: CT brain 05/31/2021 FINDINGS: BRAIN/INTRACRANIAL STRUCTURES: Unenhanced CT images of the brain demonstrate no evidence of acute abn ormality. Ventricles and sulci are within normal limits of size and shape for a patient of this age. There is no evidence of acute ischemic injury, hemorrhage, or mass. Small focal area of high right fr ontal cortical encephalomalacia is present, unchanged when compared to the prior exam. There are no abnormal intra-axial fluid collections. EXTRACRANIAL STRUCTURES: Unremarkable. IMPRESSION: No acute abnormality. Chronic ischemic and age-related changes. No significant change when compared to 05/31/2021. All CT scans at this location are performed using dose reduction to ALARA by means of automated expos ure control. Signer Name: Hima Osborne MD Signed: 08/11/2021 3:59 PM Workstation Name: [id number]
[2021-08-11] MEDS ORDERED: PIPERACIL/TAZOBACTA 4.5/NS 100 4.5 GM/100 ML VIAL IV ONE (16:06)
--- NOTE | 2021-08-11 16:32 | Consultation ---
History of Present Illness - Reason for Consult Consult date: 08/11/21 end stage renal disease Requesting physician: VEGA KNUTSON - History of Present Illness Patient is a 75-year-old -[place]aced[place] male with past medical history significant for diabetes, hypertension and end-stage renal disease on maintenance hemodialysis sent from the dialysis clinic for a temperature of 101.4 and congestive cough and body aches. Patient did not receive dialysis treatment today. He undergoes dialysis at [facility] under our care. Patient also complains affirms abdominal discomfort. Denies any nausea vomiting or diarrhea. Review of dialysis records indicate that he did receive his dialysis treatment on 08/09/2021, however the treatment was cut short to about 3 hours. Today his weight was 74.1 kg which was a gain of approximately 1.2 kg from his previous weight. His target weight however is 71.5 kg Patient is currently on room air. Oxygen saturation is 99 to 100% Past History Past Medical History: diabetes, ESRD, hypertension Past Surgical History: Other (History of creation of AV access) Social history: no significant social history Family history: no significant family history Medications and Allergies Allergies Allergy/AdvReac Type Severity Reaction Status Date / Time Beta-Blockers AdvReac Anaphylaxis Verified 08/12/21 10:48 (Beta-Adrenergic Bloc Home Medications Medication Instructions Recorded Confirmed Last Taken Type Acetaminophen [Acetaminophen TAB] 500 mg PO Q8HR PRN #20 09/14/20 08/12/21 Unknown Rx AtorvaSTATin [Lipitor] 40 mg PO QHS 30 Days #30 tablet 06/01/21 08/12/21 Unknown Rx Aspirin EC [Halfprin EC] 81 mg PO QDAY 08/12/21 08/12/21 Unknown History Calcium Acetate 667 mg PO TID 08/12/21 08/12/21 Unknown History Cholecalciferol Vit D3 [Vitamin D3 1,000 unit PO QDAY 08/12/21 08/12/21 Unknown History 1,000 UNIT TAB] Doxycycline Monohydrate 100 mg PO BID 08/12/21 08/12/21 Unknown History Folic Acid/Vit B Comp W-C [Renal 1 cap PO QDAY 08/12/21 08/12/21 Unknown History Caps] Furosemide [Lasix TAB] 40 mg PO QDAY 08/12/21 08/12/21 Unknown History NIFEdipine [Procardia Xl] 30 mg PO QDAY 08/12/21 08/12/21 Unknown History traMADoL [Ultram] 50 mg PO Q6HR PRN 08/12/21 08/12/21 Unknown History Active Meds: Active Medications Vancomycin HCl 1,500 mg/ (Sodium Chloride) 530 mls @ 333 mls/hr IV ONCE ONE; Protocol Stop: 08/11/21 18:35 Piperacillin Sod/Tazobactam Sod (Zosyn/Ns 4.5gm/100ml) 4.5 gm in 100 mls @ 200 mls/hr IV ONCE ONE; Protocol Stop: 08/11/21 16:35 Review of Systems All systems: negative (Negative except as noted above) Exam - Vital Signs Vital signs: Vital Signs Temp Pulse Resp BP Pulse Ox 99.1 F 60 20 188/70 100 08/11/21 13:24 08/11/21 13:24 08/11/21 13:24 08/11/21 13:24 08/11/21 13:24 - General Appearance General appearance: well-developed, well-nourished, appears stated age EENT: PERRL, mucous membranes moist Neck: Present: neck supple, trachea midline. Absent: JVD/HJR, Masses Respiratory: Clear to Ascultation Heart: regular, normal heart rate, S1S2, no murmurs Gastrointestinal: Present: normal, normoactive bowel sounds Integumentary: no rash, other (No edema. AV graft left upper arm. Good bruit and thrill) Results - Lab Results 08/12/21 06:51 08/12/21 06:51 Assessment and Plan Impression * End-stage renal disease on maintenance hemodialysis * Fever * Hypertension * Diabetes Recommendations * Patient is clinically not volume overloaded. Chest x-ray does not show any evidence of CHF. He is also oxygenating well on room air. * Serum potassium is 5.7. Shall treat him medically tonight and arrange for hemodialysis treatment for tomorrow * IV antibiotic as per primary team * Avoid nephrotoxins * Adjust diet and meds for ESRD state * No IV, BP or venipuncture in his access arm * Binders with meals * Epogen with dialysis * Thank you very much for the consultation. Shall follow along with you
--- NOTE | 2021-08-11 16:53 | Emergency Department Report ---
- General Chief complaint: Weakness Stated complaint: FEVER/CHILL Source: EMS Mode of arrival: Stretcher Limitations: No Limitations - History of Present Illness Initial comments: Is a 75-year-old male presented to the emergency department with complaints of fevers and chills. He has had flulike illness. He denies any shortness of breath or cough. reports weakness, denies focal numbness or weakness. Severity scale (0 -10): 10 - Related Data Previous Rx's Medication Instructions Recorded Last Taken Type Acetaminophen [Acetaminophen TAB] 500 mg PO Q8HR PRN #20 09/14/20 Unknown Rx HYDROcodone/APAP 5-325 [[place] 1 each PO Q4HR PRN #30 tablet 12/29/20 Unknown Rx 5-325 mg TAB] Aspirin EC [Ecotrin] 325 mg PO QDAY #100 tablet 06/01/21 Unknown Rx AtorvaSTATin [Lipitor] 40 mg PO QHS 30 Days #30 tablet 06/01/21 Unknown Rx Allergies Allergy/AdvReac Type Severity Reaction Status Date / Time Beta-Blockers AdvReac Anaphylaxis Verified 12/24/20 12:59 (Beta-Adrenergic Bloc ED Review of Systems ROS: Stated complaint: FEVER/CHILL Other details as noted in HPI Constitutional: chills, fever Eyes: denies: eye pain, eye discharge, vision change ENT: denies: ear pain, throat pain Respiratory: denies: cough, shortness of breath, wheezing Cardiovascular: denies: chest pain, palpitations Endocrine: no symptoms reported Gastrointestinal: denies: abdominal pain, nausea, diarrhea Genitourinary: denies: urgency, dysuria Musculoskeletal: denies: back pain, joint swelling, arthralgia Skin: denies: rash, lesions Neurological: denies: headache, weakness, paresthesias Psychiatric: denies: anxiety, depression Hematological/Lymphatic: denies: easy bleeding, easy bruising ED Past Medical Hx - Past Medical History Hx Hypertension: Yes Hx CVA: Yes (Left side deficit) Hx Heart Attack/AMI: No Hx Congestive Heart Failure: Yes Hx Diabetes: Yes Hx Deep Vein Thrombosis: No Hx Liver Disease: No Hx Renal Disease: Yes (CKD) Hx Arthritis: Yes Hx Seizures: Yes Hx Asthma: No Hx COPD: No 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 - Surgical History Hx Coronary Stent: No Hx Pacemaker: No Hx Internal Defibrillator: No Additional Surgical History: Right shoulder surgery - Social History Smoking Status: Never Smoker Substance Use Type: Alcohol - Medications Home Medications: Home Medications Medication Instructions Recorded Confirmed Last Taken Type Acetaminophen [Acetaminophen TAB] 500 mg PO Q8HR PRN #20 09/14/20 08/11/21 Unknown Rx HYDROcodone/APAP 5-325 [[place] 1 each PO Q4HR PRN #30 tablet 12/29/20 08/11/21 Unknown Rx 5-325 mg TAB] Aspirin EC [Ecotrin] 325 mg PO QDAY #100 tablet 06/01/21 08/11/21 Unknown Rx AtorvaSTATin [Lipitor] 40 mg PO QHS 30 Days #30 tablet 06/01/21 08/11/21 Unknown Rx ED Physical Exam - General Limitations: No Limitations General appearance: alert, in no apparent distress - Head Head exam: Present: atraumatic, normocephalic - Eye Eye exam: Present: normal appearance - ENT ENT exam: Present: mucous membranes moist - Neck Neck exam: Present: normal inspection - Respiratory Respiratory exam: Present: normal lung sounds bilaterally. Absent: respiratory distress - Cardiovascular Cardiovascular Exam: Present: regular rate, normal rhythm. Absent: systolic murmur, diastolic murmur, rubs, gallop - GI/Abdominal GI/Abdominal exam: Present: soft, normal bowel sounds - Rectal Rectal exam: Present: deferred - Extremities Exam Extremities exam: Present: normal inspection - Back Exam Back exam: Present: normal inspection - Neurological Exam Neurological exam: Present: alert, oriented X3 - Psychiatric Psychiatric exam: Present: normal affect, normal mood - Skin Skin exam: Present: warm, dry, intact, normal color. Absent: rash ED Course Vital Signs 08/11/21 08/11/21 08/11/21 13:24 15:13 15:57 Temperature 99.1 F 98.7 F Pulse Rate 60 58 L Respiratory 20 22 Rate Blood Pressure Blood Pressure 188/70 181/63 [Right] O2 Sat by Pulse 99 100 99 Oximetry 08/11/21 08/11/21 08/11/21 16:00 16:16 16:30 Temperature Pulse Rate Respiratory Rate Blood Pressure 192/70 192/70 192/70 Blood Pressure [Right] O2 Sat by Pulse 99 98 99 Oximetry 08/11/21 08/11/21 08/11/21 16:46 17:00 17:16 Temperature Pulse Rate 59 L 63 61 Respiratory 20 20 17 Rate Blood Pressure 177/65 200/79 177/65 Blood Pressure [Right] O2 Sat by Pulse 98 100 99 Oximetry 08/11/21 08/11/21 08/11/21 17:30 17:46 18:00 Temperature Pulse Rate 60 59 L 58 L Respiratory 23 22 21 Rate Blood Pressure 209/74 209/74 170/76 Blood Pressure [Right] O2 Sat by Pulse 100 100 100 Oximetry 08/11/21 08/11/21 08/11/21 18:16 18:30 18:46 Temperature Pulse Rate 59 L 55 L 54 L Respiratory 25 H 18 17 Rate Blood Pressure 170/76 196/78 196/78 Blood Pressure [Right] O2 Sat by Pulse 100 100 100 Oximetry 08/11/21 19:00 Temperature 98.3 F Pulse Rate 56 L Respiratory 14 Rate Blood Pressure 196/78 Blood Pressure 195/64 [Right] O2 Sat by Pulse 100 Oximetry - Reevaluation(s) Reevaluation #1: 08/11/21 16:52 Hypoglycemia is noted patient given juice 08/11/21 20:00 Patient was noted to be hyperkalemic. Patient was given calcium gluconate, albuterol, Kayexalate. We have also discussed with patient's residential program manager on- call. To be admitted for further management. ED Medical Decision Making - Lab Data Result diagrams: 08/11/21 14:35 08/11/21 14:35 - EKG Data -: EKG Interpreted by Ri EKG shows normal: sinus rhythm Rate: normal No standard instances Rhythm: NSR Voltage: C/W LVH ST segment elevation in: v2, v3 - Radiology Data Radiology results: report reviewed, image reviewed - Medical Decision Making 75-year-old male history of end-stage renal disease on hemodialysis who missed dialysis today here with complaint of fevers and chills. We will initiate sepsis work-up hold fluids given risk of fluid overload and give broad-spectrum antibiotics and test for COVID and flu. Critical Care Time: Yes Critical care time in (mins) excluding proc time.: 42 Critical care attestation.: If time is entered above; I have spent that time in minutes in the direct care of this critically ill patient, excluding procedure time. ED Disposition Clinical Impression: Hyperkalemia, Viral illness Disposition: 09 ADMITTED INPATIENT Is pt being admited?: Yes Does the pt Need Aspirin: Yes Condition: Stable Referrals: [facility] [Other] - 3-5 Days
[2021-08-11] MEDS ORDERED: VANCOMYCIN 1,500 MG in SODIUM CHLORIDE 0.9% 500 ML 500 ML IV ONE (17:00)
[2021-08-11 17:46] LABS: Basophils # (Auto) 0.1 K/mm3 (0.0-0.1); Basophils % (Auto) 1.5 % (0.0-1.8); Eosinophils # (Auto) 0.1 K/mm3 (0.0-0.4); Eosinophils % (Auto) 1.3 % (0.0-4.3); Hematocrit 30.8 % (35.5-45.6); Lymphocytes # (Auto) 1.3 K/mm3 (1.2-5.4); Lymphocytes % (Auto) 31.4 % (13.4-35.0); Mean Corpuscular HGB Conc 32 % (32-34); Mean Corpuscular Volume 97 fl (84-94); Monocytes # (Auto) 0.3 K/mm3 (0.0-0.8); Monocytes % (Auto) 7.2 % (0.0-7.3); Platelet Count 221 K/mm3 (140-440); Red Blood Count 3.17 M/mm3 (3.65-5.03); Red Cell Distribution Width 15.1 % (13.2-15.2)
[2021-08-11 18:00] LABS: INR 1.03 (0.87-1.13)
[2021-08-11 18:08] LABS: Albumin 4.4 g/dL (3.9-5); Calcium 8.3 mg/dL (8.4-10.2)
[2021-08-11 18:20] LABS: Chol/HDL Ratio 2.15 %
[2021-08-11] MEDS ORDERED: ALBUTEROL 2.5 MG/3 ML NEBU IH ONE (18:51)
[2021-08-11] MEDS ORDERED: SODIUM POLYSTYRENE 15 GM/60 ML ORAL LIQD PO ONE (18:51)
[2021-08-11] MEDS ORDERED: ASPIRIN 81 MG TAB CHEW PO ONE (20:00)
[2021-08-11] MEDS ORDERED: CALC GLUCONATE 1GM/NS 100 ML 2 GM/200 ML BAG IV ONE (20:00)
[2021-08-11] MEDS ORDERED: cloNIDine 0.1 MG TAB PO ONE (20:12)
[2021-08-11 21:02] LABS: Hepatitis B Surface Antigen Non-Reactive (Negative); Hepatitis C Virus Antibody Non-Reactive (NonReactive)
[2021-08-11] MEDS ORDERED: HYDROcodone/ACETAMINOPHEN 5-325 MG TAB PO PRN (22:40)
[2021-08-11] MEDS ORDERED: METOCLOPRAMIDE 10 MG/2 ML INJ IV PRN ×2 (22:43→22:58)
[2021-08-11] MEDS ORDERED: MORPHINE 2 MG/1 ML INJ IV PRN (22:43)
[2021-08-11] MEDS ORDERED: ONDANSETRON 4 MG/2 ML INJ IV PRN (22:43)
[2021-08-11] MEDS ORDERED: ACETAMINOPHEN 325 MG TAB PO PRN (22:43)
[2021-08-11] MEDS ORDERED: HYDROmorphone 0.5 MG/0.5 ML INJ IV PRN (22:43)
--- NOTE | 2021-08-11 22:50 | History and Physical Report ---
History of Present Illness Date of examination: 08/11/21 Date of admission: 08/11/2021 Chief complaint: Increasing shortness of breath since morning History of present illness: 75-year-old male with history of end-stage renal disease, hypertension and hyperlipidemia comes in for fever and chills. Also shortness of breath. Patient is on 50% Ventimask while in the emergency room. Missed hemodialysis session. Follows with [facility] nephrology. Has orthopnea. 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 - Surgical History Right shoulder surgery - Social History Smoking Status: Never Smoker Substance Use Type: Alcohol - Medications Home Medications: Home Medications Medication Instructions Recorded Confirmed Last Taken Type Acetaminophen [Acetaminophen TAB] 500 mg PO Q8HR PRN #20 09/14/20 08/11/21 Unknown Rx HYDROcodone/APAP 5-325 [[place] 1 each PO Q4HR PRN #30 tablet 12/29/20 08/11/21 Unknown Rx 5-325 mg TAB] Aspirin EC [Ecotrin] 325 mg PO QDAY #100 tablet 06/01/21 08/11/21 Unknown Rx AtorvaSTATin [Lipitor] 40 mg PO QHS 30 Days #30 tablet 06/01/21 08/11/21 Unknown Rx Review of Systems ROS: Stated complaint: FEVER/CHILL Other details as noted in HPI Constitutional: chills, fever Eyes: denies: eye pain, eye discharge, vision change ENT: denies: ear pain, throat pain Respiratory: denies: cough, shortness of breath, wheezing Cardiovascular: denies: chest pain, palpitations Endocrine: no symptoms reported Gastrointestinal: denies: abdominal pain, nausea, diarrhea Genitourinary: denies: urgency, dysuria Musculoskeletal: denies: back pain, joint swelling, arthralgia Skin: denies: rash, lesions Neurological: denies: headache, weakness, paresthesias Psychiatric: denies: anxiety, depression Hematological/Lymphatic: denies: easy bleeding, easy bruising Past History Past Medical History: diabetes, ESRD, hypertension Past Surgical History: Other (History of creation of AV access) Social history: no significant social history Family history: no significant family history Medications and Allergies Allergies Allergy/AdvReac Type Severity Reaction Status Date / Time Beta-Blockers AdvReac Anaphylaxis Verified 12/24/20 12:59 (Beta-Adrenergic Bloc Home Medications Medication Instructions Recorded Confirmed Last Taken Type Acetaminophen [Acetaminophen TAB] 500 mg PO Q8HR PRN #20 09/14/20 08/11/21 Unknown Rx HYDROcodone/APAP 5-325 [[place] 1 each PO Q4HR PRN #30 tablet 12/29/20 08/11/21 Unknown Rx 5-325 mg TAB] Aspirin EC [Ecotrin] 325 mg PO QDAY #100 tablet 06/01/21 08/11/21 Unknown Rx AtorvaSTATin [Lipitor] 40 mg PO QHS 30 Days #30 tablet 06/01/21 08/11/21 Unknown Rx Exam - Constitutional Vitals: Temp Pulse Resp BP Pulse Ox 98.3 F 71 16 183/71 100 08/11/21 20:10 08/11/21 22:16 08/11/21 22:16 08/11/21 22:16 08/11/21 22:16 General appearance: Present: mild distress, well-nourished - EENT Eyes: Present: PERRL ENT: hearing intact, clear oral mucosa - Neck Neck: Present: supple, normal ROM - Respiratory Respiratory effort: normal Respiratory: bilateral: CTA - Cardiovascular Heart rate: 98 Rhythm: regular Heart Sounds: Present: S1 & S2. Absent: rub, click - Extremities Extremities: pulses symmetrical, No edema Peripheral Pulses: within normal limits - Abdominal General gastrointestinal: Present: soft, non-tender, non-distended, normal bowel sounds Male genitourinary: Present: normal - Integumentary Integumentary: Present: clear, warm, dry - Musculoskeletal Musculoskeletal: gait normal, strength equal bilaterally - Psychiatric Psychiatric: appropriate mood/affect, intact judgment & insight - Neurologic Neurologic: CNII-XII intact, moves all extremities HEART Score - HEART Score Troponin: Troponin T 0.043 ng/mL (0.00-0.029) H 08/11/21 14:35 Results - Labs CBC & Chem 7: 08/11/21 14:35 08/11/21 14:35 Labs: Laboratory Last Values WBC 4.3 K/mm3 (4.5-11.0) L 08/11/21 14:35 RBC 3.17 M/mm3 (3.65-5.03) L 08/11/21 14:35 Hgb 10.0 gm/dl (11.8-15.2) L 08/11/21 14:35 Hct 30.8 % (35.5-45.6) L 08/11/21 14:35 MCV 97 fl (84-94) H 08/11/21 14:35 MCH 31 pg (28-32) 08/11/21 14:35 MCHC 32 % (32-34) 08/11/21 14:35 RDW 15.1 % (13.2-15.2) 08/11/21 14:35 Plt Count 221 K/mm3 (140-440) 08/11/21 14:35 Lymph % (Auto) 31.4 % (13.4-35.0) 08/11/21 14:35 [place] % (Auto) 7.2 % (0.0-7.3) 08/11/21 14:35 Eos % (Auto) 1.3 % (0.0-4.3) 08/11/21 14:35 Baso % (Auto) 1.5 % (0.0-1.8) 08/11/21 14:35 Lymph # (Auto) 1.3 K/mm3 (1.2-5.4) 08/11/21 14:35 [place] # (Auto) 0.3 K/mm3 (0.0-0.8) 08/11/21 14:35 Eos # (Auto) 0.1 K/mm3 (0.0-0.4) 08/11/21 14:35 Baso # (Auto) 0.1 K/mm3 (0.0-0.1) 08/11/21 14:35 Seg Neutrophils % 58.6 % (40.0-70.0) 08/11/21 14:35 Seg Neutrophils # 2.5 K/mm3 (1.8-7.7) 08/11/21 14:35 PT 14.6 Sec. (12.2-14.9) 08/11/21 14:35 INR 1.03 (0.87-1.13) 08/11/21 14:35 Sodium 139 mmol/L (137-145) 08/11/21 14:35 Potassium 5.7 mmol/L (3.6-5.0) H 08/11/21 14:35 Chloride 100.5 mmol/L (98-107) 08/11/21 14:35 Carbon Dioxide 23 mmol/L (22-30) 08/11/21 14:35 Anion Gap 21 mmol/L 08/11/21 14:35 BUN 79 mg/dL (9-20) H 08/11/21 14:35 Creatinine 9.7 mg/dL (0.8-1.3) H 08/11/21 14:35 Estimated GFR 6 ml/min 08/11/21 14:35 BUN/Creatinine Ratio 8 % 08/11/21 14:35 Glucose 175 mg/dL (75-100) H 08/11/21 14:35 POC Glucose 68 mg/dL (70-105) L 08/11/21 15:12 Lactic Acid 1.80 mmol/L (0.7-2.0) 08/11/21 Unknown Calcium 8.3 mg/dL (8.4-10.2) L 08/11/21 14:35 Magnesium 2.10 mg/dL (1.7-2.3) 08/11/21 14:35 Total Bilirubin 0.60 mg/dL (0.1-1.2) 08/11/21 14:35 AST 17 units/L (5-40) 08/11/21 14:35 ALT 13 units/L (7-56) 08/11/21 14:35 Alkaline Phosphatase 68 units/L (35-129) 08/11/21 14:35 Total Creatine Kinase 216 units/L (55-170) H 08/11/21 14:35 Troponin T 0.043 ng/mL (0.00-0.029) H 08/11/21 14:35 Total Protein 7.6 g/dL (6.3-8.2) 08/11/21 14:35 Albumin 4.4 g/dL (3.9-5) 08/11/21 14:35 Albumin/Globulin Ratio 1.4 % 08/11/21 14:35 Triglycerides 42 mg/dL (2-149) 08/11/21 14:35 Cholesterol 127 mg/dL (50-199) 08/11/21 14:35 LDL Cholesterol Direct 63 mg/dL (50-130) 08/11/21 14:35 HDL Cholesterol 59 mg/dL (40-59) 08/11/21 14:35 Cholesterol/HDL Ratio 2.15 % 08/11/21 14:35 Hepatitis A IgM Ab Non-reactive (NonReactive) 08/11/21 20:16 Hep Bs Antigen Non-reactive (Negative) 08/11/21 20:16 Hep B Core IgM Ab Non-reactive (NonReactive) 08/11/21 20:16 Hepatitis C Antibody Non-reactive (NonReactive) 08/11/21 20:16 Short CBC 08/11/21 Range/Units 14:35 WBC 4.3 L (4.5-11.0) K/mm3 Hgb 10.0 L (11.8-15.2) gm/dl Hct 30.8 L (35.5-45.6) % Plt Count 221 (140-440) K/mm3 BMP 08/11/21 14:35 Sodium 139 Potassium 5.7 H Chloride 100.5 Carbon Dioxide 23 BUN 79 H Creatinine 9.7 H Glucose 175 H Calcium 8.3 L Cardiac Enzymes 08/11/21 Range/Units 14:35 Total Creatine Kinase 216 H (55-170) units/L Troponin T 0.043 H (0.00-0.029) ng/mL Liver Function 08/11/21 Range/Units 14:35 Total Bilirubin 0.60 (0.1-1.2) mg/dL AST 17 (5-40) units/L ALT 13 (7-56) units/L Alkaline Phosphatase 68 (35-129) units/L Albumin 4.4 (3.9-5) g/dL Urine 08/12/21 Range/Units 02:30 Urine Color Yellow (Yellow) Urine pH 8.0 H (5.0-7.0) Ur Specific [place] 1.005 (1.003-1.030) Urine Protein 30 mg/dl (Negative) mg/dL Urine Glucose (UA) Negative (Negative) mg/dL - Imaging and Cardiology Imaging and Cardiology: Chest x-ray No acute findings Assessment and Plan Advance Directives: Yes (Full code) VTE prophylaxis?: Chemical Plan of care discussed with patient/family: Yes - Patient Problems (1) Volume overload Current Visit: Yes Status: Acute Plan to address problem: Patient to be hemodialyzed for increased ultrafiltration Nephrology consult (2) Hyperkalemia Current Visit: Yes Status: Acute Plan to address problem: Hyperkalemia treated in the emergency room (3) Hypertension Current Visit: Yes Status: Chronic Qualifiers: Hypertension type: primary hypertension Qualified Code(s): I10 - Essential (primary) hypertension Plan to address problem: Continue antihypertensives (4) End stage renal disease on dialysis Current Visit: Yes Status: Acute Plan to address problem: Emergent hemodialysis Nephrology consult requested (5) Fever Current Visit: Yes Status: Acute Qualifiers: Encounter type: initial encounter Plan to address problem: No focus of infection identified Patient complains of fever but temperature is in the emergency room were normal (6) DVT prophylaxis Current Visit: Yes Status: Acute Plan to address problem: On heparin and GI prophylaxis (7) Advance care planning Current Visit: Yes Status: Acute Plan to address problem: Disease education conducted, care plan discussed, diagnosis discussed, prognosis discussed. Patient is full code. Patient acknowledged understanding and agreement with care plan. +30 minutes.
[2021-08-12 03:30] LABS: Bacteria,Urine 1+ /HPF (Negative)
[2021-08-12 03:37] LABS: Bilirubin,Urine Negative (Negative); Blood,Urine Negative (Negative); Color,Urine Yellow (Yellow); Urobilinogen,Urine < 2.0 mg/dL (<2.0)
[2021-08-12 07:16] LABS: Basophils # (Auto) 0.1 K/mm3 (0.0-0.1); Basophils % (Auto) 1.2 % (0.0-1.8); Eosinophils # (Auto) 0.1 K/mm3 (0.0-0.4); Eosinophils % (Auto) 2.1 % (0.0-4.3); Hematocrit 30.3 % (35.5-45.6); Hemoglobin 9.8 gm/dl (11.8-15.2); Lymphocytes # (Auto) 1.2 K/mm3 (1.2-5.4); Lymphocytes % (Auto) 22.4 % (13.4-35.0); Mean Corpuscular HGB Conc 33 % (32-34); Mean Corpuscular Volume 96 fl (84-94); Monocytes # (Auto) 0.4 K/mm3 (0.0-0.8); Platelet Count 213 K/mm3 (140-440); Red Blood Count 3.15 M/mm3 (3.65-5.03); Red Cell Distribution Width 14.8 % (13.2-15.2)
[2021-08-12 07:36] LABS: Calcium 8.2 mg/dL (8.4-10.2)
--- NOTE | 2021-08-12 08:55 | Electrocardiograph Report ---
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
[2021-08-12] MEDS: CHOLECALCIFEROL (VIT D3) 1000 UNIT (25 mcg) TAB PO SCH (12:43)
[2021-08-12] MEDS: FUROSEMIDE 40 MG TAB PO SCH (12:43)
--- NOTE | 2021-08-12 12:43 | Progress Note ---
Assessment and Plan Impression * End-stage renal disease on maintenance hemodialysis * Fever * Hypertension * Diabetes * Hyperkalemia Recommendations * Serum potassium is better at 5.1 this morning with Kayexalate * Shall arrange for hemodialysis treatment for today and keep him on MWF schedule for now * IV antibiotic as per primary team * Avoid nephrotoxins * Adjust diet and meds for ESRD state * No IV, BP or venipuncture in his access arm * Binders with meals * Epogen with dialysis Subjective Date of service: 08/12/21 Interval history: Patient is comfortable today. Denies any shortness of breath. No nausea vomiting or diarrhea. Objective - Vital Signs Vital signs: Vital Signs - 12hr 08/12/21 08/12/21 08/12/21 00:46 01:00 01:42 Temperature 98.4 F Pulse Rate 66 67 62 Respiratory 16 21 18 Rate Blood Pressure 171/65 175/70 153/51 O2 Sat by Pulse 97 99 99 Oximetry 08/12/21 08/12/21 08/12/21 02:14 04:16 10:12 Temperature 98.3 F Pulse Rate 61 57 L Respiratory 18 Rate Blood Pressure 175/67 147/81 O2 Sat by Pulse 98 99 95 Oximetry - General Appearance General appearance: well-developed, well-nourished, appears stated age EENT: PERRL, mucous membranes moist Neck: no JVD, no thyromegaly, no carotid bruit, supple Respiratory: Present: Clear to Ascultation Cardiology: regular, normal heart rate Gastrointestinal: normal, normoactive bowel sounds Integumentary: no rash, other (No edema. AV graft left upper arm. Good bruit and thrill.) - Lab 08/12/21 06:51 08/12/21 06:51 Most recent lab results Calcium 8.2 mg/dL (8.4-10.2) L 08/12/21 06:51 Magnesium 2.10 mg/dL (1.7-2.3) 08/11/21 14:35 Medications & Allergies - Medications Allergies/Adverse Reactions: Allergies Beta-Blockers (Beta-Adrenergic Bloc Adverse Reaction (Verified 08/12/21 10:48) Anaphylaxis Home Medications: Home Medications Medication Instructions Recorded Confirmed Last Taken Type Acetaminophen [Acetaminophen TAB] 500 mg PO Q8HR PRN #20 09/14/20 08/12/21 Unknown Rx AtorvaSTATin [Lipitor] 40 mg PO QHS 30 Days #30 tablet 06/01/21 08/12/21 Unknown Rx Aspirin EC [Halfprin EC] 81 mg PO QDAY 08/12/21 08/12/21 Unknown History Calcium Acetate 667 mg PO TID 08/12/21 08/12/21 Unknown History Cholecalciferol Vit D3 [Vitamin D3 1,000 unit PO QDAY 08/12/21 08/12/21 Unknown History 1,000 UNIT TAB] Doxycycline Monohydrate 100 mg PO BID 08/12/21 08/12/21 Unknown History Folic Acid/Vit B Comp W-C [Renal 1 cap PO QDAY 08/12/21 08/12/21 Unknown History Caps] Furosemide [Lasix TAB] 40 mg PO QDAY 08/12/21 08/12/21 Unknown History NIFEdipine [Procardia Xl] 30 mg PO QDAY 08/12/21 08/12/21 Unknown History traMADoL [Ultram] 50 mg PO Q6HR PRN 08/12/21 08/12/21 Unknown History Active Medications: Generic Name Dose Route Start Last Admin Trade Name Freq PRN Reason Stop Dose Admin Acetaminophen 650 mg 08/11/21 22:43 Acetaminophen 325 Mg Tab PO Q4H PRN Pain MILD(1-3)/Fever >100.5/LIRA Hydrocodone Bitart/Acetaminophen 1 each 08/11/21 22:40 Hydrocodone/Acetaminophen 5-325 Mg Tab PO Q4HR PRN Pain, Moderate (4-6) Aspirin 325 mg 08/12/21 10:00 Aspirin Ec 325 Mg Tab PO QDAY [facility] Atorvastatin Calcium 40 mg 08/12/21 22:00 Atorvastatin 40 Mg Tab PO QHS [facility] Calcium Acetate 667 mg 08/12/21 14:00 Calcium Acetate 667 Mg Cap PO TID [facility] Cholecalciferol 1,000 unit 08/12/21 12:00 Cholecalciferol (Vit D3) 1000 Unit (25 Mcg) Tab PO QDAY [facility] Furosemide 40 mg 08/12/21 12:00 Furosemide 40 Mg Tab PO QDAY [facility] Heparin Sodium (Porcine) 5,000 unit 08/11/21 23:00 08/12/21 00:00 Heparin 5,000 Unit/1 Ml Vial SUB-Q 5,000 unit Q12HR [facility] Administration Hydromorphone HCl 0.5 mg 08/11/21 22:43 Hydromorphone 0.5 Mg/0.5 Ml Inj IV Q3H PRN Pain , Severe (7-10) Metoclopramide HCl 2.5 mg 08/11/21 22:58 Metoclopramide 10 Mg/2 Ml Inj IV Q6H PRN Nausea And Vomiting Morphine Sulfate 2 mg 08/11/21 22:43 Morphine 2 Mg/1 Ml Inj IV Q4H PRN Pain, Moderate (4-6) Multivit/Ca Carb/B Cmplx/FA/Prenat 1 cap 08/12/21 12:00 Folic Acid/Vit B Comp W-C 1 Mg (Renal Caps) PO QDAY MICHA Nifedipine 30 mg 08/12/21 12:00 Nifedipine Xl 30 Mg Tab PO QDAY [facility] Ondansetron HCl 4 mg 08/11/21 22:43 Ondansetron 4 Mg/2 Ml Inj IV Q8H PRN Nausea And Vomiting Sodium Chloride 10 ml 08/12/21 10:00 Sodium Chloride 0.9% 10 Ml Flush Syringe IV BID MICHA Sodium Chloride 10 ml 08/11/21 22:43 Sodium Chloride 0.9% 10 Ml Flush Syringe IV PRN PRN LINE FLUSH
[2021-08-12] MEDS: NIFEdipine XL 30 MG TAB PO SCH (12:44)
[2021-08-12] MEDS: FOLIC ACID/VIT B COMP W-C 1 MG (RENAL CAPS) PO SCH (12:44)
[2021-08-12] MEDS: ASPIRIN EC 325 MG TAB PO SCH (12:47)
[2021-08-12] MEDS: CALCIUM ACETATE 667 MG CAP PO SCH ×2 (13:33→20:12)
[2021-08-12] MEDS: HEPARIN 5,000 UNIT/1 ML VIAL SUB-Q SCH ×3 (13:34→21:06)
--- NOTE | 2021-08-12 13:41 | Progress Note ---
Assessment and Plan Assessment and plan: #Hyperkalemia- improving -s/p medical management in ED, K now 5.1 -will be addressed via K bath during HD today -will continue to monitor #Fever-resolved -patient with reported Tmax of 101 at dialysis center -Afebrile since admission -Received Vanco and Zosyn in ED, low suspicion for bacterial infection at this time we will not continue -Blood cultures collected 08/11: No growth to date -Influenza PCR negative; COVID-19 PCR pending #Hypertension -continue home antihypertensive medications -Goal SBP less than 160 while patient #End stage renal disease on dialysis -HD outpatient MWF, dialysis today -Nephrology consulted, assistance appreciated -Renally dose all medications avoid nephrotoxins #DVT prophylaxis -continue subcutaneous heparin #Advanced care planning -Disease education conducted, care plan discussed, diagnosis discussed, prognosis discussed. Patient is full code. Patient acknowledged understanding and agreement with care plan. +30 minutes. History Interval history: No acute events overnight. Patient reports needing to have a bowel movement. Has no other complaints at this time. Hospitalist Physical - Physical exam Narrative exam: GENERAL: Well-developed well-nourished. In no acute distress. HEENT: Normocephalic. Atraumatic. NECK: Supple. CHEST/LUNGS: CTAB on room air HEART/CARDIOVASCULAR: RRR. No murmur, rubs or gallops appreciated. ABDOMEN: +BS. NT/ND. SKIN: No rashes noted. NEURO: No focal motor deficit. Follows all commands. MUSCULOSKELETAL: No joint effusion EXTREMITIES: LUE AVF w/ thrill. No cyanosis, clubbing or edema. PSYCH: Cooperative. - Constitutional Vitals: Temp Pulse Resp BP Pulse Ox 98.3 F 57 L 18 147/81 95 08/12/21 04:16 08/12/21 10:12 08/12/21 04:16 08/12/21 10:12 08/12/21 10:12 General appearance: Present: mild distress, well-nourished HEART Score - HEART Score Troponin: Troponin T 0.043 ng/mL (0.00-0.029) H 08/11/21 14:35 Results - Labs CBC & Chem 7: 08/12/21 06:51 08/12/21 06:51 Labs: Laboratory Last Values WBC 5.2 K/mm3 (4.5-11.0) 08/12/21 06:51 RBC 3.15 M/mm3 (3.65-5.03) L 08/12/21 06:51 Hgb 9.8 gm/dl (11.8-15.2) L 08/12/21 06:51 Hct 30.3 % (35.5-45.6) L 08/12/21 06:51 MCV 96 fl (84-94) H 08/12/21 06:51 MCH 31 pg (28-32) 08/12/21 06:51 MCHC 33 % (32-34) 08/12/21 06:51 RDW 14.8 % (13.2-15.2) 08/12/21 06:51 Plt Count 213 K/mm3 (140-440) 08/12/21 06:51 Lymph % (Auto) 22.4 % (13.4-35.0) 08/12/21 06:51 Frio % (Auto) 8.0 % (0.0-7.3) H 08/12/21 06:51 Eos % (Auto) 2.1 % (0.0-4.3) 08/12/21 06:51 Baso % (Auto) 1.2 % (0.0-1.8) 08/12/21 06:51 Lymph # (Auto) 1.2 K/mm3 (1.2-5.4) 08/12/21 06:51 Frio # (Auto) 0.4 K/mm3 (0.0-0.8) 08/12/21 06:51 Eos # (Auto) 0.1 K/mm3 (0.0-0.4) 08/12/21 06:51 Baso # (Auto) 0.1 K/mm3 (0.0-0.1) 08/12/21 06:51 Seg Neutrophils % 66.3 % (40.0-70.0) 08/12/21 06:51 Seg Neutrophils # 3.5 K/mm3 (1.8-7.7) 08/12/21 06:51 PT 14.6 Sec. (12.2-14.9) 08/11/21 14:35 INR 1.03 (0.87-1.13) 08/11/21 14:35 Sodium 141 mmol/L (137-145) 08/12/21 06:51 Potassium 5.1 mmol/L (3.6-5.0) H 08/12/21 06:51 Chloride 101.1 mmol/L (98-107) 08/12/21 06:51 Carbon Dioxide 23 mmol/L (22-30) 08/12/21 06:51 Anion Gap 22 mmol/L 08/12/21 06:51 BUN 81 mg/dL (9-20) H 08/12/21 06:51 Creatinine 10.5 mg/dL (0.8-1.3) H 08/12/21 06:51 Estimated GFR 6 ml/min 08/12/21 06:51 BUN/Creatinine Ratio 8 % 08/12/21 06:51 Glucose 169 mg/dL (75-100) H 08/12/21 06:51 POC Glucose 68 mg/dL (70-105) L 08/11/21 15:12 Lactic Acid 1.80 mmol/L (0.7-2.0) 08/11/21 Unknown Calcium 8.2 mg/dL (8.4-10.2) L 08/12/21 06:51 Magnesium 2.10 mg/dL (1.7-2.3) 08/11/21 14:35 Total Bilirubin 0.40 mg/dL (0.1-1.2) 08/12/21 06:51 AST 15 units/L (5-40) 08/12/21 06:51 ALT 12 units/L (7-56) 08/12/21 06:51 Alkaline Phosphatase 62 units/L (35-129) 08/12/21 06:51 Total Creatine Kinase 216 units/L (55-170) H 08/11/21 14:35 Troponin T 0.043 ng/mL (0.00-0.029) H 08/11/21 14:35 Total Protein 7.6 g/dL (6.3-8.2) 08/12/21 06:51 Albumin 4.0 g/dL (3.9-5) 08/12/21 06:51 Albumin/Globulin Ratio 1.1 % 08/12/21 06:51 Triglycerides 42 mg/dL (2-149) 08/11/21 14:35 Cholesterol 127 mg/dL (50-199) 08/11/21 14:35 LDL Cholesterol Direct 63 mg/dL (50-130) 08/11/21 14:35 HDL Cholesterol 59 mg/dL (40-59) 08/11/21 14:35 Cholesterol/HDL Ratio 2.15 % 08/11/21 14:35 Urine Color Yellow (Yellow) 08/12/21 02:30 Urine Turbidity Clear (Clear) 08/12/21 02:30 Urine pH 8.0 (5.0-7.0) H 08/12/21 02:30 Ur Specific [place] 1.005 (1.003-1.030) 08/12/21 02:30 Urine Protein 30 mg/dl mg/dL (Negative) 08/12/21 02:30 Urine Glucose (UA) Negative mg/dL (Negative) 08/12/21 02:30 Urine Ketones Negative mg/dL (Negative) 08/12/21 02:30 Urine Blood Negative (Negative) 08/12/21 02:30 Urine Nitrite Negative (Negative) 08/12/21 02:30 Ur Reducing Substances Not Reportable 08/12/21 02:30 Urine Bilirubin Negative (Negative) 08/12/21 02:30 Urine Ictotest Not Reportable 08/12/21 02:30 Urine Urobilinogen < 2.0 mg/dL (<2.0) 08/12/21 02:30 Ur Leukocyte Esterase Negative (Negative) 08/12/21 02:30 Urine WBC (Auto) 1.0 /HPF (0.0-6.0) 08/12/21 02:30 Urine RBC (Auto) 1.0 /HPF (0.0-6.0) 08/12/21 02:30 U Epithel Cells (Auto) 1.0 /HPF (0-13.0) 08/12/21 02:30 Urine Bacteria (Auto) 1+ /HPF (Negative) 08/12/21 02:30 Hepatitis A IgM Ab Non-reactive (NonReactive) 08/11/21 20:16 Hep Bs Antigen Non-reactive (Negative) 08/11/21 20:16 Hep B Core IgM Ab Non-reactive (NonReactive) 08/11/21 20:16 Hepatitis C Antibody Non-reactive (NonReactive) 08/11/21 20:16 Influenza A (RT-PCR) Negative (Negative) 08/12/21 Unknown Influenza B (RT-PCR) Negative (Negative) 08/12/21 Unknown Microbiology: Microbiology 08/11/21 20:09 Peripheral/Venous Blood Culture - Preliminary Culture in Progress 08/11/21 20:09 Peripheral/Venous Blood Culture - Preliminary Culture in Progress Marrufo/IV: Voiding Method Condom Catheter Active Medications - Current Medications Current Medications: Generic Name Dose Route Start Last Admin Trade Name Freq PRN Reason Stop Dose Admin Acetaminophen 650 mg 08/11/21 22:43 Acetaminophen 325 Mg Tab PO Q4H PRN Pain MILD(1-3)/Fever >100.5/LIRA Hydrocodone Bitart/Acetaminophen 1 each 08/11/21 22:40 Hydrocodone/Acetaminophen 5-325 Mg Tab PO Q4HR PRN Pain, Moderate (4-6) Aspirin 325 mg 08/12/21 10:00 08/12/21 12:47 Aspirin Ec 325 Mg Tab PO 325 mg QDAY MICHA Administration Atorvastatin Calcium 40 mg 08/12/21 22:00 Atorvastatin 40 Mg Tab PO QHS MICHA Calcium Acetate 667 mg 08/12/21 14:00 08/12/21 13:33 Calcium Acetate 667 Mg Cap PO 667 mg TID MICHA Administration Cholecalciferol 1,000 unit 08/12/21 12:00 08/12/21 12:43 Cholecalciferol (Vit D3) 1000 Unit (25 Mcg) Tab PO 1,000 unit QDAY MICHA Administration Furosemide 40 mg 08/12/21 12:00 08/12/21 12:43 Furosemide 40 Mg Tab PO 40 mg QDAY MICHA Administration Heparin Sodium (Porcine) 5,000 unit 08/11/21 23:00 08/12/21 13:34 Heparin 5,000 Unit/1 Ml Vial SUB-Q Not Given Q12HR [facility] Hydromorphone HCl 0.5 mg 08/11/21 22:43 Hydromorphone 0.5 Mg/0.5 Ml Inj IV Q3H PRN Pain , Severe (7-10) Metoclopramide HCl 2.5 mg 08/11/21 22:58 Metoclopramide 10 Mg/2 Ml Inj IV Q6H PRN Nausea And Vomiting Morphine Sulfate 2 mg 08/11/21 22:43 Morphine 2 Mg/1 Ml Inj IV Q4H PRN Pain, Moderate (4-6) Multivit/Ca Carb/B Cmplx/FA/Prenat 1 cap 08/12/21 12:00 08/12/21 12:44 Folic Acid/Vit B Comp W-C 1 Mg (Renal Caps) PO 1 cap QDAY MICHA Administration Nifedipine 30 mg 08/12/21 12:00 08/12/21 12:44 Nifedipine Xl 30 Mg Tab PO 30 mg QDAY MICHA Administration Ondansetron HCl 4 mg 08/11/21 22:43 Ondansetron 4 Mg/2 Ml Inj IV Q8H PRN Nausea And Vomiting Sodium Chloride 10 ml 08/12/21 10:00 08/12/21 12:44 Sodium Chloride 0.9% 10 Ml Flush Syringe IV 10 ml BID MICAH Administration Sodium Chloride 10 ml 08/11/21 22:43 Sodium Chloride 0.9% 10 Ml Flush Syringe IV PRN PRN LINE FLUSH
[2021-08-12] MEDS ORDERED: NON-FORMULARY EACH (Calcium Acetate [Calcium Acetate] 667 MG Tablet) PO SCH (14:00)
[2021-08-13 06:29] LABS: Calcium 8.4 mg/dL (8.4-10.2)
[2021-08-13] MEDS: CALCIUM ACETATE 667 MG CAP PO SCH (08:00)
[2021-08-13] MEDS: ASPIRIN EC 325 MG TAB PO SCH (09:03)
[2021-08-13] MEDS: FOLIC ACID/VIT B COMP W-C 1 MG (RENAL CAPS) PO SCH (09:03)
[2021-08-13] MEDS: HEPARIN 5,000 UNIT/1 ML VIAL SUB-Q SCH (09:03)
[2021-08-13] MEDS: FUROSEMIDE 40 MG TAB PO SCH (09:03)
[2021-08-13] MEDS: CHOLECALCIFEROL (VIT D3) 1000 UNIT (25 mcg) TAB PO SCH (09:03)
[2021-08-13] MEDS: NIFEdipine XL 30 MG TAB PO SCH (09:03)
--- NOTE | 2021-08-13 10:27 | Progress Note ---
Assessment and Plan Impression * End-stage renal disease on maintenance hemodialysis * Fever * Hypertension * Diabetes * Hyperkalemia Recommendations * Hyperkalemia has been corrected. Patient had uneventful hemodialysis yesterday. * Continue dialysis on MWF schedule for now * IV antibiotic as per primary team * Blood cultures negative 24 hours * Avoid nephrotoxins * Adjust diet and meds for ESRD state * No IV, BP or venipuncture in his access arm * Binders with meals * Epogen with dialysis Subjective Date of service: 08/13/21 Interval history: Patient is awake and alert. He is comfortable. Denies any shortness of breath. Uneventful hemodialysis yesterday. Objective - Vital Signs Vital signs: Vital Signs - 12hr 08/13/21 02:00 O2 Sat by Pulse 100 Oximetry - General Appearance General appearance: well-developed, well-nourished, appears stated age EENT: PERRL, mucous membranes moist Neck: no JVD, no thyromegaly, no carotid bruit, supple Respiratory: Present: Clear to Ascultation Cardiology: regular, normal heart rate, S1S2, no murmurs Gastrointestinal: normal, normoactive bowel sounds Integumentary: no rash, other (AV fistula left upper arm. Good bruit and thrill.) - Lab 08/12/21 06:51 08/13/21 05:43 Most recent lab results Calcium 8.4 mg/dL (8.4-10.2) 08/13/21 05:43 Magnesium 2.10 mg/dL (1.7-2.3) 08/11/21 14:35 Medications & Allergies - Medications Allergies/Adverse Reactions: Allergies Beta-Blockers (Beta-Adrenergic Bloc Adverse Reaction (Verified 08/12/21 10:48) Anaphylaxis Home Medications: Home Medications Medication Instructions Recorded Confirmed Last Taken Type Acetaminophen [Acetaminophen TAB] 500 mg PO Q8HR PRN #20 09/14/20 08/12/21 Unknown Rx AtorvaSTATin [Lipitor] 40 mg PO QHS 30 Days #30 tablet 06/01/21 08/12/21 Unknown Rx Aspirin EC [Halfprin EC] 81 mg PO QDAY 08/12/21 08/12/21 Unknown History Calcium Acetate 667 mg PO TID 08/12/21 08/12/21 Unknown History Cholecalciferol Vit D3 [Vitamin D3 1,000 unit PO QDAY 08/12/21 08/12/21 Unknown History 1,000 UNIT TAB] Doxycycline Monohydrate 100 mg PO BID 08/12/21 08/12/21 Unknown History Folic Acid/Vit B Comp W-C [Renal 1 cap PO QDAY 08/12/21 08/12/21 Unknown History Caps] Furosemide [Lasix TAB] 40 mg PO QDAY 08/12/21 08/12/21 Unknown History NIFEdipine [Procardia Xl] 30 mg PO QDAY 08/12/21 08/12/21 Unknown History traMADoL [Ultram] 50 mg PO Q6HR PRN 08/12/21 08/12/21 Unknown History Active Medications: Generic Name Dose Route Start Last Admin Trade Name Freq PRN Reason Stop Dose Admin Acetaminophen 650 mg 08/11/21 22:43 Acetaminophen 325 Mg Tab PO Q4H PRN Pain MILD(1-3)/Fever >100.5/LIRA Hydrocodone Bitart/Acetaminophen 1 each 08/11/21 22:40 Hydrocodone/Acetaminophen 5-325 Mg Tab PO Q4HR PRN Pain, Moderate (4-6) Aspirin 325 mg 08/12/21 10:00 08/13/21 09:03 Aspirin Ec 325 Mg Tab PO 325 mg QDAY MICHA Administration Atorvastatin Calcium 40 mg 08/12/21 22:00 08/12/21 21:06 Atorvastatin 40 Mg Tab PO 40 mg QHS MICHA Administration Calcium Acetate 667 mg 08/12/21 14:00 08/13/21 08:00 Calcium Acetate 667 Mg Cap PO 667 mg TID MICHA Administration Cholecalciferol 1,000 unit 08/12/21 12:00 08/13/21 09:03 Cholecalciferol (Vit D3) 1000 Unit (25 Mcg) Tab PO 1,000 unit QDAY MICHA Administration Furosemide 40 mg 08/12/21 12:00 08/13/21 09:03 Furosemide 40 Mg Tab PO 40 mg QDAY MICHA Administration Heparin Sodium (Porcine) 5,000 unit 08/11/21 23:00 08/13/21 09:03 Heparin 5,000 Unit/1 Ml Vial SUB-Q 5,000 unit Q12HR MICHA Administration Hydromorphone HCl 0.5 mg 08/11/21 22:43 Hydromorphone 0.5 Mg/0.5 Ml Inj IV Q3H PRN Pain , Severe (7-10) Metoclopramide HCl 2.5 mg 08/11/21 22:58 Metoclopramide 10 Mg/2 Ml Inj IV Q6H PRN Nausea And Vomiting Morphine Sulfate 2 mg 08/11/21 22:43 Morphine 2 Mg/1 Ml Inj IV Q4H PRN Pain, Moderate (4-6) Multivit/Ca Carb/B Cmplx/FA/Prenat 1 cap 08/12/21 12:00 08/13/21 09:03 Folic Acid/Vit B Comp W-C 1 Mg (Renal Caps) PO 1 cap QDAY MICHA Administration Nifedipine 30 mg 08/12/21 12:00 08/13/21 09:03 Nifedipine Xl 30 Mg Tab PO 30 mg QDAY MICHA Administration Ondansetron HCl 4 mg 08/11/21 22:43 Ondansetron 4 Mg/2 Ml Inj IV Q8H PRN Nausea And Vomiting Sodium Chloride 10 ml 08/12/21 10:00 08/12/21 21:06 Sodium Chloride 0.9% 10 Ml Flush Syringe IV 10 ml BID MICHA Administration Sodium Chloride 10 ml 08/11/21 22:43 Sodium Chloride 0.9% 10 Ml Flush Syringe IV PRN PRN LINE FLUSH
--- NOTE | 2021-08-13 10:32 | Discharge Summary ---
Providers - Providers Date of Admission: 08/11/21 22:43 Date of discharge: 08/13/21 Attending physician: CORINE OCHOA MD 08/11/21 22:43 Consult to Physician [CONS] Routine Comment: Consulting Provider: LORETTA ESTRADA Physician Instructions: Reason For Exam: esrd 08/12/21 10:31 Physical Therapy Evaluation and Treat [CONS] Routine Comment: Reason For Exam: weakness Hospitalization Reason for admission: fever Condition: Stable Hospital course: 75-year-old male with history of ESRD on HD, hypertension and hyperlipidemia who presented due to fever and chills. Patient was afebrile throughout entire hospital stay. Nephrology was consulted for inpatient hemodialysis. Blood cultures were collected and there was no growth x24 hours prior to discharge. Patient remained clinically stable and was discharged home with family. Disposition: 01 HOME / SELF CARE / HOMELESS Final Discharge Diagnosis (Prints w/discharge instructions): Fever. Hyperkalemia. Hypertension. End-stage renal disease on dialysis Time spent for discharge: 35 minutes Core Measure Documentation - Palliative Care Palliative Care/ Comfort Measures: Not Applicable - Core Measures Any of the following diagnoses?: history only Exam - Physical Exam Narrative exam: GENERAL: Thin elderly male. In no acute distress. HEENT: Normocephalic. Atraumatic. NECK: Supple. CHEST/LUNGS: CTAB on room air HEART/CARDIOVASCULAR: RRR. No murmur, rubs or gallops appreciated. ABDOMEN: +BS. NT/ND. SKIN: No rashes noted. NEURO: No focal motor deficit. Follows all commands. MUSCULOSKELETAL: No joint effusion EXTREMITIES: LUE AVF w/ thrill. No cyanosis, clubbing or edema. PSYCH: Cooperative. - Constitutional Vitals: Temp Pulse Resp BP Pulse Ox 97.8 F 53 L 16 145/50 100 08/12/21 20:35 08/12/21 20:35 08/12/21 20:35 08/12/21 20:35 08/13/21 02:00 Plan Care Plan Goals: Please follow-up with your primary care provider after discharge. You have not had any fever since admission. And all of your laboratory findings for infection have been negative. Resume dialysis at your outpatient center. Follow up with: [facility] [Other] - 3-5 Days
[2021-08-13 11:56] VITALS: BP 150/49
== END 2021-08-13 14:00 | disposition home or self-care (01) | DRG 640 ==
LOC: ED 13:18 → 3A 22:43
PROVIDERS: ADMIT Internal Medicine; ATTEND Student in an Organized Health Care Education/Training Program
PROC: 5A1D70Z Performance of Urinary Filtration, Intermittent, Less than 6 Hours Per Day (ICD-10-PCS; principal; 2021-08-12)
DX: E87.5 Hyperkalemia (principal); N18.6 End stage renal disease; I12.0 Hypertensive chronic kidney disease with stage 5 chronic kidney disease or end stage renal disease; Z20.822 Contact with and (suspected) exposure to COVID-19; E87.79 Other fluid overload; M19.90 Unspecified osteoarthritis, unspecified site; E78.5 Hyperlipidemia, unspecified; E11.22 Type 2 diabetes mellitus with diabetic chronic kidney disease; Z79.899 Other long term (current) drug therapy; Z88.8 Allergy status to other drugs, medicaments and biological substances; Z86.73 Personal history of transient ischemic attack (TIA), and cerebral infarction without residual deficits; Z86.11 Personal history of tuberculosis; Z91.14 Patient's other noncompliance with medication regimen
CPT/HCPCS: 36415; 70450; 71045; 80048; 80053; 80061; 80074; 81001; 82140; 82550; 82962; 83735; 84484; 85025; 85610; 87040; 93005; G0378; 87502; J0610; J1644; J2543; J3370; J7040; U0003

== ENCOUNTER 2021-09-28 17:31 | Emergency (ER) | payer MEDICARE ==
[2021-09-28] MEDS ORDERED: cefTRIAXone/NS 1 GM/50 ML 1 GM/50 ML BAG IV ONE (19:53)
[2021-09-28] MEDS ORDERED: SODIUM CHLORIDE 0.9% 1000 ML IV SOLN IV ONE (19:53)
[2021-09-28 20:26] LABS: Basophils # (Auto) 0.1 K/mm3 (0.0-0.1); Basophils % (Auto) 0.7 % (0.0-1.8); Eosinophils % (Auto) 0.1 % (0.0-4.3); Hematocrit 30.7 % (35.5-45.6); Hemoglobin 10.1 gm/dl (11.8-15.2); Lymphocytes % (Auto) 9.5 % (13.4-35.0); Mean Corpuscular HGB Conc 33 % (32-34); Mean Corpuscular Volume 94 fl (84-94); Monocytes # (Auto) 0.6 K/mm3 (0.0-0.8); Monocytes % (Auto) 5.8 % (0.0-7.3); Platelet Count 270 K/mm3 (140-440); Red Blood Count 3.27 M/mm3 (3.65-5.03); Red Cell Distribution Width 13.5 % (13.2-15.2)
--- NOTE | 2021-09-28 20:27 | XRay Report ---
CHEST 1 VIEW 09/28/2021 8:05 PM INDICATION / CLINICAL INFORMATION: fever. COMPARISON: 08/11/2021 FINDINGS: SUPPORT DEVICES: None. HEART / MEDIASTINUM: No significant abnormality. LUNGS / PLEURA: No significant pulmonary or pleural abnormality. No pneumothorax. ADDITIONAL FINDINGS: No significant additional findings. IMPRESSION: 1. No acute findings. Signer Name: Edvin Pierre MD Signed: 09/28/2021 8:23 PM Workstation Name: [id number]
[2021-09-28 20:34] LABS: INR 1.05 (0.87-1.13)
[2021-09-28 20:49] LABS: Albumin 4.2 g/dL (3.9-5); Calcium 9.8 mg/dL (8.4-10.2)
[2021-09-28 21:58] LABS: Chol/HDL Ratio 2.19 %
--- NOTE | 2021-09-28 23:36 | Emergency Department Report ---
ED General Adult HPI - General Chief complaint: Weakness Stated complaint: ABDOMINAL PAIN/WEAK/FEVER PUI?: Yes Time Seen by Provider: 09/28/21 19:52 Source: patient, EMS Mode of arrival: Stretcher Limitations: No Limitations - History of Present Illness Initial comments: PT ARRIVING FROM SUB[place]AY FOR CHEST PAIN, BILATERAL LE PAIN. "UNDER THE WEATHER" FOR 3-4 DAYS. DRY COUGH. BGL 277. 20G L FA pt is vaccinated against covid , history of CRF and CVA m, had fever since sunday had similar episodes last month and was dmitted and work up has been negative -: Gradual, days(s) Location: pelvis Radiation: non-radiation Severity scale (0 -10): 2 Consistency: constant Improves with: none Worsens with: none Associated Symptoms: denies: denies other symptoms, confusion, chest pain, cough Treatments Prior to Arrival: none - Related Data Home Medications Medication Instructions Recorded Confirmed Last Taken Aspirin EC [Halfprin EC] 81 mg PO QDAY 08/12/21 08/12/21 Unknown Calcium Acetate 667 mg PO TID 08/12/21 08/12/21 Unknown Cholecalciferol Vit D3 [Vitamin D3 1,000 unit PO QDAY 08/12/21 08/12/21 Unknown 1,000 UNIT TAB] Folic Acid/Vit B Comp W-C [Renal 1 cap PO QDAY 08/12/21 08/12/21 Unknown Caps] Furosemide [Lasix TAB] 40 mg PO QDAY 08/12/21 08/12/21 Unknown NIFEdipine [Procardia Xl] 30 mg PO QDAY 08/12/21 08/12/21 Unknown traMADoL [Ultram 50 MG tab] 50 mg PO Q6HR PRN 08/12/21 08/12/21 Unknown Previous Rx's Medication Instructions Recorded Last Taken Type Acetaminophen [Acetaminophen TAB] 500 mg PO Q8HR PRN #20 09/14/20 Unknown Rx AtorvaSTATin [Lipitor] 40 mg PO QHS 30 Days #30 tablet 06/01/21 Unknown Rx Allergies Allergy/AdvReac Type Severity Reaction Status Date / Time Beta-Blockers AdvReac Anaphylaxis Verified 09/28/21 17:52 (Beta-Adrenergic Bloc ED Review of Systems ROS: Stated complaint: ABDOMINAL PAIN/WEAK/FEVER Other details as noted in HPI Constitutional: denies: chills, fever Eyes: denies: eye pain, eye discharge, vision change ENT: denies: ear pain, throat pain Respiratory: denies: cough, shortness of breath, wheezing Cardiovascular: denies: chest pain, palpitations Endocrine: no symptoms reported Gastrointestinal: denies: abdominal pain, nausea, diarrhea Genitourinary: denies: urgency, dysuria Musculoskeletal: denies: back pain, joint swelling, arthralgia Skin: denies: rash, lesions Neurological: denies: headache, weakness, paresthesias Psychiatric: denies: anxiety, depression Hematological/Lymphatic: denies: easy bleeding, easy bruising ED Past Medical Hx - Past Medical History Hx Hypertension: Yes Hx CVA: Yes (Left side deficit) Hx Heart Attack/AMI: Yes Hx Congestive Heart Failure: Yes Hx Diabetes: Yes Hx Deep Vein Thrombosis: No Hx Liver Disease: No Hx Renal Disease: Yes (CKD) Hx Arthritis: Yes Hx Seizures: Yes Hx Asthma: Yes Hx COPD: No 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 - Surgical History Hx Coronary Stent: No Hx Pacemaker: No Hx Internal Defibrillator: No Additional Surgical History: Right shoulder surgery - Social History Smoking Status: Never Smoker - Medications Home Medications: Home Medications Medication Instructions Recorded Confirmed Last Taken Type Acetaminophen [Acetaminophen TAB] 500 mg PO Q8HR PRN #20 09/14/20 08/12/21 Unknown Rx AtorvaSTATin [Lipitor] 40 mg PO QHS 30 Days #30 tablet 06/01/21 08/12/21 Unknown Rx Aspirin EC [Halfprin EC] 81 mg PO QDAY 08/12/21 08/12/21 Unknown History Calcium Acetate 667 mg PO TID 08/12/21 08/12/21 Unknown History Cholecalciferol Vit D3 [Vitamin D3 1,000 unit PO QDAY 08/12/21 08/12/21 Unknown History 1,000 UNIT TAB] Folic Acid/Vit B Comp W-C [Renal 1 cap PO QDAY 08/12/21 08/12/21 Unknown History Caps] Furosemide [Lasix TAB] 40 mg PO QDAY 08/12/21 08/12/21 Unknown History NIFEdipine [Procardia Xl] 30 mg PO QDAY 08/12/21 08/12/21 Unknown History traMADoL [Ultram 50 MG tab] 50 mg PO Q6HR PRN 08/12/21 08/12/21 Unknown History ED Physical Exam - General Limitations: No Limitations General appearance: alert - Head Head exam: Present: atraumatic, normocephalic - Eye Eye exam: Present: normal appearance - ENT ENT exam: Present: mucous membranes moist - Neck Neck exam: Present: normal inspection - Respiratory Respiratory exam: Present: normal lung sounds bilaterally. Absent: respiratory distress - Cardiovascular Cardiovascular Exam: Present: normal rhythm, tachycardia. Absent: systolic murmur, diastolic murmur, rubs, gallop - GI/Abdominal GI/Abdominal exam: Present: soft, normal bowel sounds - Rectal Rectal exam: Present: deferred - Extremities Exam Extremities exam: Present: normal inspection - Back Exam Back exam: Present: normal inspection - Neurological Exam Neurological exam: Present: alert, oriented X3 - Psychiatric Psychiatric exam: Present: normal affect, normal mood - Skin Skin exam: Present: warm, dry, intact, normal color. Absent: rash ED Course Vital Signs 09/28/21 09/28/21 09/28/21 17:50 18:48 18:51 Temperature 101.6 F H 101.8 F H Pulse Rate 73 Respiratory 18 24 Rate Blood Pressure Blood Pressure 146/58 [Left] O2 Sat by Pulse 98 Oximetry 09/28/21 09/28/21 09/28/21 19:01 19:15 19:31 Temperature Pulse Rate 73 74 76 Respiratory 22 20 22 Rate Blood Pressure 168/60 185/70 175/67 Blood Pressure [Left] O2 Sat by Pulse 99 98 100 Oximetry 09/28/21 09/28/21 09/28/21 19:45 20:01 20:05 Temperature 100.6 F H Pulse Rate 72 74 Respiratory 20 23 Rate Blood Pressure 175/67 171/68 Blood Pressure [Left] O2 Sat by Pulse 100 100 Oximetry 09/28/21 09/28/21 09/28/21 20:15 20:31 20:45 Temperature Pulse Rate 75 75 86 Respiratory 24 24 27 H Rate Blood Pressure 172/66 179/56 179/56 Blood Pressure [Left] O2 Sat by Pulse 100 99 100 Oximetry 09/28/21 09/28/21 09/28/21 21:01 21:15 21:31 Temperature Pulse Rate 90 83 82 Respiratory 27 H 23 23 Rate Blood Pressure 163/59 168/46 173/41 Blood Pressure [Left] O2 Sat by Pulse 99 100 100 Oximetry ED Medical Decision Making - Lab Data Result diagrams: 09/28/21 20:04 09/28/21 20:04 - EKG Data -: EKG Interpreted by Me EKG shows normal: sinus rhythm Rate: tachycardia - Radiology Data Radiology results: report reviewed, image reviewed - Medical Decision Making sepsis work up neg , fever control abx given , no source noted, fever is down VSS, pt refused CT because he did one recently in [facility] but doesn;t rememeber which one and they told him it is unremarkable , will plan on discharging him to follow up with PCP , abx given , RTED if not better or changed his mind about CT Critical care attestation.: If time is entered above; I have spent that time in minutes in the direct care of this critically ill patient, excluding procedure time. ED Disposition Clinical Impression: Fever, Weakness Disposition: 01 HOME / SELF CARE / HOMELESS Is pt being admited?: No Does the pt Need Aspirin: No Condition: Stable Instructions: Fever, Adult Referrals: MERLE CHAVEZ MD [Primary Care Provider] - 3-5 Days
[2021-09-29 01:54] VITALS: BP 164/55
--- NOTE | 2021-09-29 13:49 | Electrocardiograph Report ---
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
== END 2021-09-29 01:30 | disposition home or self-care (01) ==
LOC: ED 17:31
DX: R50.9 Fever, unspecified (principal); R53.1 Weakness; I13.0 Hypertensive heart and chronic kidney disease with heart failure and stage 1 through stage 4 chronic kidney disease, or unspecified chronic kidney disease; E11.22 Type 2 diabetes mellitus with diabetic chronic kidney disease; N18.9 Chronic kidney disease, unspecified; I50.9 Heart failure, unspecified; Z86.73 Personal history of transient ischemic attack (TIA), and cerebral infarction without residual deficits; M19.90 Unspecified osteoarthritis, unspecified site; R56.9 Unspecified convulsions; J45.909 Unspecified asthma, uncomplicated; A15.9 Respiratory tuberculosis unspecified; Z88.8 Allergy status to other drugs, medicaments and biological substances
CPT/HCPCS: 36415; 71045; 80053; 80061; 82140; 82550; 83690; 83880; 84484; 85025; 85610; 87040; 87076; 87186; 93005; 96365; 99284; J0696; J7030; 96361

== ENCOUNTER 2021-11-22 19:40 | Inpatient (IN) | payer MEDICARE ==
[2021-11-22] MEDS ORDERED: SODIUM CHLORIDE 0.9% 1000 ML 1,000 ML IV ONE ×3 (20:03→22:23)
--- NOTE | 2021-11-22 20:57 | XRay Report ---
CHEST 1 VIEW 11/22/2021 7:38 PM INDICATION / CLINICAL INFORMATION: fever, altered mental status. COMPARISON: 09/28/2021. FINDINGS: SUPPORT DEVICES: None. HEART / MEDIASTINUM: No significant abnormality. LUNGS / PLEURA: Opacity at the mid/lower zones bilaterally. No pneumothorax. ADDITIONAL FINDINGS: No significant additional findings. IMPRESSION: Bilateral pneumonia. Signer Name: Markel Benavides MD Signed: 11/22/2021 8:53 PM Workstation Name: [id number]
[2021-11-22] MEDS ORDERED: ACETAMINOPHEN 500 MG TAB PO ONE (21:00)
[2021-11-22 21:10] LABS: Hematocrit 27.6 % (35.5-45.6); Mean Corpuscular HGB Conc 33 % (32-34); Mean Corpuscular Volume 92 fl (84-94); Platelet Count 402 K/mm3 (140-440); Red Blood Count 2.99 M/mm3 (3.65-5.03); Red Cell Distribution Width 14.2 % (13.2-15.2)
--- NOTE | 2021-11-22 21:38 | Cat Scan Report ---
CT HEAD WITHOUT CONTRAST INDICATION / CLINICAL INFORMATION: fever, altered mental status. TECHNIQUE: All CT scans at this location are performed using CT dose reduction for ALARA by means of automated exposure control. COMPARISON: CT head without contrast from 08/11/2021. FINDINGS: BRAIN PARENCHYMA: No acute intracranial hemorrhage. No evidence of recent infarct. No mass effect or midline shift. Mild atrophy is again noted with probable chronic microvascular ischemic changes and u nchanged right frontal lobe encephalomalacia as well as probable sequela of chronic ischemia along th e left cerebellar hemisphere. VENTRICULAR SYSTEM/EXTRA-AXIAL SPACES: Ventricles are normal for age. No extra-axial fluid collection . ORBITS: Normal as visualized. SKELETAL SYSTEM/SOFT TISSUES: Normal bones and soft tissues. PARANASAL SINUSES/MASTOID AIR CELLS: No significant abnormality. ADDITIONAL FINDINGS: None. IMPRESSION: 1. No acute intracranial abnormality. 2. Unchanged chronic findings as above. Signer Name: Keegan Burden MD Signed: 11/22/2021 9:33 PM Workstation Name: [id number]
[2021-11-22 21:39] LABS: Calcium 9.8 mg/dL (8.4-10.2)
[2021-11-22] MEDS ORDERED: AZITHROMYCIN/NS 500 MG/250 ML 500 MG/250 ML BAG IV ONE (21:39)
[2021-11-22] MEDS ORDERED: LIDOCAINE-MPF (1%) 10 MG/1 ML VIAL 5 ML INFILTRATI ONE (21:39)
[2021-11-22 21:51] LABS: Basophils % (Manual) 0 % (0.0-1.8); Platelet Estimate Consistent w Auto; Total Cells Counted 100
[2021-11-22] MEDS ORDERED: cefTRIAXone/NS 1 GM/50 ML 1 GM/50 ML BAG IV ONE (22:20)
[2021-11-22] MEDS ORDERED: ACETAMINOPHEN 325 MG TAB PO PRN (22:56)
[2021-11-22] MEDS ORDERED: MORPHINE 2 MG/1 ML INJ IV PRN (22:56)
[2021-11-22] MEDS ORDERED: MORPHINE 4 MG/1 ML INJ IV PRN (22:56)
[2021-11-22] MEDS ORDERED: ONDANSETRON 4 MG/2 ML INJ IV PRN (22:56)
[2021-11-22] MEDS ORDERED: MAGNESIUM HYDROXIDE (MOM) ORAL LIQD UDC PO PRN (22:56)
[2021-11-22] MEDS ORDERED: SODIUM CHLORIDE 0.9% 1000 ML 1,000 ML IV SCH (23:00)
--- NOTE | 2021-11-22 23:00 | Emergency Department Report ---
HPI - General Chief Complaint: Fever PUI?: No Time Seen by Provider: 11/22/21 20:01 - HPI HPI: This is a 75-year-old male with a history of end-stage renal disease on hemodialysis Sunday, hypertension, hyperlipidemia, brought in by EMS at the request of his sister for altered mental status. Patient's sister states that they had an event on with multiple people at their home. She states she believes the patient has been feeling unwell since then. She reports he is up-to-date concerning his COVID vaccination and was last vaccinated 2 weeks ago. The patient went to dialysis today but upon returning complaint of feeling weakness. He has had a mild cough. She states she touches skin after he returned from dialysis and states "he felt very hot." Patient did not receive any antipyretics prior to arrival. Patient denies any symptoms at this time. Pain currently 0/10. Patient sister reports that the patient does make urine. ED Past Medical Hx - Past Medical History Previous Medical History?: Yes ED Review of Systems ROS: Stated complaint: AMS/FEVER Other details as noted in HPI Comment: All other systems reviewed and negative Physical Exam - Physical Exam Vital Signs: Vital Signs 11/22/21 11/22/21 11/22/21 20:20 21:00 21:02 Temperature 102.3 F H Pulse Rate 88 75 Respiratory 16 17 17 Rate Blood Pressure 67/36 Blood Pressure 186/89 [Right] O2 Sat by Pulse 98 100 100 Oximetry 11/22/21 11/22/21 11/22/21 21:16 21:30 22:51 Temperature 100.0 F H Pulse Rate 76 85 Respiratory 13 18 Rate Blood Pressure 54/22 95/60 Blood Pressure [Right] O2 Sat by Pulse 100 100 Oximetry General: Gen: Elderly male, mildly ill-appearing, lying in stretcher, speaking in full sentences, no drooling no stridor no respiratory distress, breathing unlabored, nontoxic HEENT: Normocephalic atraumatic pupils equally round and reactive to light extraocular muscles intact sclera anicteric Neck: Full range of motion, no midline spinal tenderness palpation, no JVD, no carotid bruits, no nuchal rigidity CVS: S1-S2 regular rate and rhythm with no gallops rubs or murmurs, chest wall nontender Pulmonary: Clear to auscultation bilaterally, no wheezes rales or rhonchi Abdomen: Soft nondistended nontender no guarding or rebound tenderness, no palpable deformities or step-offs, normal active bowel sounds, no hepatosplenomegaly, no pulsatile masses : Deferred Extremities: No cyanosis no clubbing no edema, intact distal peripheral pulses, left upper extremity AV fistula with strong palpable thrill Integumentary: Skin normal, no petechia no purpura no abscess no lacerations no evidence of trauma no evidence of infection Neuro: Patient is awake alert and oriented to person place time situation, mentating well, cranial nerves II through XII intact, no focal neurodeficits, sensation grossly intact, GCS 3 Psych: Calm cooperative, mood affect normal ED Course Vital Signs 11/22/21 11/22/21 11/22/21 20:20 21:00 21:02 Temperature 102.3 F H Pulse Rate 88 75 Respiratory 16 17 17 Rate Blood Pressure 67/36 Blood Pressure 186/89 [Right] O2 Sat by Pulse 98 100 100 Oximetry 11/22/21 11/22/21 11/22/21 21:16 21:30 22:51 Temperature 100.0 F H Pulse Rate 76 85 Respiratory 13 18 Rate Blood Pressure 54/22 95/60 Blood Pressure [Right] O2 Sat by Pulse 100 100 Oximetry - Reevaluation(s) Reevaluation #1: 11/22/21 22:59 Patient is ANO x4, mentating well, moving all extremities, GCS 15 ED Medical Decision Making - Lab Data Result diagrams: 11/22/21 20:26 11/22/21 20:26 - EKG Data -: EKG Interpreted by Id EKG shows normal: sinus rhythm Rate: normal - EKG Data When compared to previous EKG there are: no significant change, previous EKG juancarlos vailable - Radiology Data Radiology results: report reviewed - Medical Decision Making 75-year-old male with multiple medical comorbidities presents for evaluation of sepsis likely secondary to bilateral community-acquired pneumonia. Patient febrile here. Blood pressure improved with intravenous fluids. He was given acetaminophen, and ceftriaxone and azithromycin. Case has been reviewed with admitting hospitalist, . He verbalized agreement to accept the patient to the hospital service for further management. Critical care attestation.: If time is entered above; I have spent that time in minutes in the direct care of this critically ill patient, excluding procedure time. ED Disposition Clinical Impression: Sepsis, Community acquired bilateral lower lobe pneumonia Disposition: 09 ADMITTED INPATIENT Is pt being admited?: Yes Does the pt Need Aspirin: No Condition: Stable Instructions: Bacterial Pneumonia (ED)
--- NOTE | 2021-11-22 23:13 | History and Physical Report ---
History of Present Illness Date of examination: 11/22/21 Date of admission: 11/22/2021 Chief complaint: Fever Altered Mental Status History of present illness: 75 year old male with known history of ESRD on dialysis- tuesdays, and saturdays , hypertension ,hyperlipidemia presents in the ER via EMS for evaluation of changes in mental status. Patient has been feeling ill since . Patient was in dialysis today has been feeling generally weak. He has had some cough which is nonproductive. Patient was said to have interacted with friends and family members during the holidays. He has been no recent travel. No contact with anyone with COVID-19. Patient is fully vaccinated against COVID-19. Upon arrival in the emergency room today, patient had a fever of 102.3 F., He was slightly hypotensive with systolic in the 60s and diastolic in the 30s. Work-up in the emergency room today, CT scan of the head was unremarkable. Chest x-ray shows bilateral pneumonia. Patient being admitted with [id number] and sepsis. Past History Past Medical History: dialysis, ESRD, hypertension Past Surgical History: Other (Left upper extremity AV fistula ) Social history: no significant social history Family history: no significant family history Medications and Allergies Allergies Allergy/AdvReac Type Severity Reaction Status Date / Time Unable to Assess Allergy Unverified 11/22/21 20:31 Active Meds: Active Medications Acetaminophen (Acetaminophen 325 Mg Tab) 650 mg PO Q4H PRN PRN Reason: Pain MILD(1-3)/Fever >100.5/LIRA Azithromycin (Azithromycin 250 Mg Tab) 500 mg PO QDAY MICHA; Protocol Sodium Chloride (Nacl 0.9% 1000 Ml) 1,000 mls @ 999 mls/hr IV BOLUS ONE Stop: 11/22/21 23:23 Sodium Chloride (Nacl 0.9% 1000 Ml) 1,000 mls @ 125 mls/hr IV DIRECT MICHA Ceftriaxone Sodium (Rocephin/Ns 2 Gm/100 Ml) 2 gm in 100 mls @ 200 mls/hr IV Q24H MICHA; Protocol Magnesium Hydroxide (Magnesium Hydroxide (Mom) Oral Liqd Udc) 30 ml PO Q4H PRN PRN Reason: Constipation Morphine Sulfate (Morphine 2 Mg/1 Ml Inj) 2 mg IV Q4H PRN PRN Reason: Pain, Moderate (4-6) Morphine Sulfate (Morphine 4 Mg/1 Ml Inj) 4 mg IV Q4H PRN PRN Reason: Pain , Severe (7-10) Ondansetron HCl (Ondansetron 4 Mg/2 Ml Inj) 4 mg IV Q8H PRN PRN Reason: Nausea And Vomiting Sodium Chloride (Sodium Chloride 0.9% 10 Ml Flush Syringe) 10 ml IV BID MICHA Sodium Chloride (Sodium Chloride 0.9% 10 Ml Flush Syringe) 10 ml IV PRN PRN PRN Reason: LINE FLUSH Review of Systems Constitutional: fever, chills Ears, nose, mouth and throat: no nasal congestion, no sore throat Cardiovascular: no chest pain, no palpitations Respiratory: cough, no shortness of breath Gastrointestinal: no abdominal pain, no nausea, no vomiting, no diarrhea Genitourinary Male: no dysuria, no hematuria, no flank pain, no nocturia Musculoskeletal: no neck pain, no low back pain Integumentary: no rash, no pruritis Neurological: confusion, no headaches Psychiatric: no anxiety, no depression Endocrine: no polyphagia, no polydipsia, no polyuria Exam - Constitutional Vitals: Temp Pulse Resp BP Pulse Ox 100.0 F H 85 18 95/60 100 11/22/21 22:51 11/22/21 21:30 11/22/21 21:30 11/22/21 21:30 11/22/21 21:30 General appearance: Present: no acute distress, well-nourished - EENT Eyes: Present: PERRL, EOM intact. Absent: scleral icterus ENT: hearing intact, clear oral mucosa, dentition normal - Neck Neck: Present: supple, normal ROM - Respiratory Respiratory effort: normal Respiratory: bilateral: diminished - Cardiovascular Rhythm: regular Heart Sounds: Present: S1 & S2. Absent: gallop, systolic murmur, diastolic murmur, rub, click - Extremities Extremities: no ischemia, pulses intact, pulses symmetrical, No edema, normal temperature, normal color, Full ROM Peripheral Pulses: within normal limits - Abdominal General gastrointestinal: Present: soft, non-tender, non-distended, normal bowel sounds. Absent: mass - Integumentary Integumentary: Present: clear, warm, dry, normal turgor. Absent: rash - Musculoskeletal Musculoskeletal: strength equal bilaterally - Psychiatric Psychiatric: appropriate mood/affect, intact judgment & insight, memory intact, cooperative - Neurologic Neurologic: CNII-XII intact, no focal deficits, moves all extremities Results - Labs CBC & Chem 7: 11/22/21 20:26 11/22/21 20:26 Labs: Abnormal lab results 11/22/21 11/22/21 Range/Units 20:26 20:26 WBC 14.5 H (4.5-11.0) K/mm3 RBC 2.99 L (3.65-5.03) M/mm3 Hgb 9.0 L (11.8-15.2) gm/dl Hct 27.6 L (35.5-45.6) % Seg Neuts % (Manual) 95.0 H (40.0-70.0) % Lymphocytes % (Manual) 0 L (13.4-35.0) % Seg Neutrophils # Man 13.8 H (1.8-7.7) K/mm3 Lymphocytes # (Manual) 0.0 L (1.2-5.4) K/mm3 Chloride 97.4 L (98-107) mmol/L Carbon Dioxide 20 L (22-30) mmol/L BUN 27 H (9-20) mg/dL Creatinine 5.7 H (0.8-1.3) mg/dL Assessment and Plan Assessment: 1.Pneumonia- Community Acquired 2.ESRD - on dialysis 3.Sepsis Plan: 1.Admitted and placed on empiric IV antibiotics 2.Consult [facility]sperson for evaluation - for dialysis DVT Prophylaxis: SQ Heparin Code Status: Full Code
[2021-11-23 03:42] LABS: C-Reactive Protein 3.3 mg/dL (0.00-1.30)
[2021-11-23] MEDS: HEPARIN 5,000 UNIT/1 ML VIAL SUB-Q SCH ×3 (05:45→21:54)
[2021-11-23 06:30] LABS: Calcium 8.8 mg/dL (8.4-10.2)
[2021-11-23] MEDS ORDERED: SODIUM CHLORIDE 0.9% 100 ML IV PRN (09:00)
[2021-11-23] MEDS: cefTRIAXone/NS 2 GM/100 ML 2 GM/100 ML BAG IV SCH (09:17)
[2021-11-23] MEDS: AZITHROMYCIN 250 MG TAB PO SCH (09:21)
--- NOTE | 2021-11-23 10:36 | Consultation ---
History of Present Illness - Reason for Consult Consult date: 11/23/21 PUI, pneumonia Requesting physician: NATALIO BALDERAS - History of Present Illness The patient is a 75-year-old male with ESRD on HD, hypertension was admitted to the hospital yesterday with complaints of fever and altered mental status. He also had some cough, upon evaluation in the ER, noted to have a fever of 102.3 F, labs revealed leukocytosis. Admitted with concerns for sepsis due to pneumonia. ID has been consulted for additional evaluation. WBC 14.5, CRP 3.3. Seen at dialysis. On room air. Feeling better, no complaints at this time. Chest x-ray showed bilateral pneumonia. CT head showed no acute intracranial abnormality. Review of Systems: General: fever HEENT: no new visual disturbance Respiratory: cough, shortness of breath Cardiovascular: No chest pain, syncope Gastrointestinal: No nausea, vomiting or diarrhea Genitourinary: No dysuria or hematuria Musculoskeletal: No new or worsening neck pain or back pain Neurologic: No headaches, seizures Hematologic: No easy bruising or bleeding Endocrine: No night sweats or acute weight loss Skin: negative for rash, jaundice Psychiatric: No suicidal or homicidal ideation Past History Past Medical History: dialysis, ESRD, hypertension Past Surgical History: Other (Left upper extremity AV fistula ) Social history: no significant social history Family history: no significant family history Medications and Allergies Allergies Allergy/AdvReac Type Severity Reaction Status Date / Time No Known Allergies Allergy Verified 11/23/21 08:49 Home Medications Medication Instructions Recorded Confirmed Last Taken Type Aspirin EC [Halfprin EC] 81 mg PO QDAY 11/23/21 11/23/21 11/21/21 History AtorvaSTATin [Lipitor] 40 mg PO QHS 11/23/21 11/23/21 11/21/21 History Calcium Acetate [Phoslo] 667 mg PO TID 11/23/21 11/23/21 11/21/21 History Furosemide [Lasix] 40 mg PO DAILY 11/23/21 11/23/21 11/21/21 History Isosorbide Mononitrate [Isosorbide 60 mg PO QDAY 11/23/21 11/23/21 11/21/21 History Mononitrate ER] NIFEdipine XL [Procardia Xl] 30 mg PO BID 11/23/21 11/23/21 11/21/21 History Tizanidine HCl 2 mg PO DAILY PRN 11/23/21 11/23/21 11/21/21 History Vit B Comp No.3/Folic/C/Biotin 1 tab PO QDAY 11/23/21 11/23/21 11/21/21 History [Ayanna-Inderjit Rx Tablet] Active Meds: Active Medications Acetaminophen (Acetaminophen 325 Mg Tab) 650 mg PO Q4H PRN PRN Reason: Pain MILD(1-3)/Fever >100.5/LIRA Azithromycin (Azithromycin 250 Mg Tab) 500 mg PO QDAY [facility]; Protocol Stop: 11/26/21 10:01 Last Admin: 11/23/21 09:21 Dose: 500 mg Heparin Sodium (Porcine) (Heparin 5,000 Unit/1 Ml Vial) 5,000 unit SUB-Q Q8HR MICHA Last Admin: 11/23/21 05:45 Dose: 5,000 unit Sodium Chloride (Nacl 0.9% 1000 Ml) 1,000 mls @ 125 mls/hr IV DIRECT MICHA Ceftriaxone Sodium (Rocephin/Ns 2 Gm/100 Ml) 2 gm in 100 mls @ 200 mls/hr IV Q24H MICHA; Protocol Last Admin: 11/23/21 09:17 Dose: 200 mls/hr Sodium Chloride (Nacl 0.9%) 100 mls @ 999 mls/hr IV ERICH PRN PRN Reason: Hypotension Magnesium Hydroxide (Magnesium Hydroxide (Mom) Oral Liqd Udc) 30 ml PO Q4H PRN PRN Reason: Constipation Morphine Sulfate (Morphine 2 Mg/1 Ml Inj) 2 mg IV Q4H PRN PRN Reason: Pain, Moderate (4-6) Morphine Sulfate (Morphine 4 Mg/1 Ml Inj) 4 mg IV Q4H PRN PRN Reason: Pain , Severe (7-10) Ondansetron HCl (Ondansetron 4 Mg/2 Ml Inj) 4 mg IV Q8H PRN PRN Reason: Nausea And Vomiting Sodium Chloride (Sodium Chloride 0.9% 10 Ml Flush Syringe) 10 ml IV BID [facility] Last Admin: 11/23/21 09:21 Dose: 10 ml Sodium Chloride (Sodium Chloride 0.9% 10 Ml Flush Syringe) 10 ml IV PRN PRN PRN Reason: LINE FLUSH Physical Examination - Physical Exam Narrative exam: Physical Exam: Constitutional: Alert, cooperative. No acute distress Head, Ears, Nose: Normocephalic, atraumatic. External ears, nose normal Eyes: Conjunctivae/corneas clear. No icterus. No ptosis. Neck: Supple, no meningeal signs Cardiovascular: S1, S2 + Respiratory: Good air entry, clear to auscultation bilaterally GI: Soft, non-tender; bowel sounds normal. No peritoneal signs Musculoskeletal: No pedal edema, no cyanosis. Skin: No rash or abscess Hem/Lymphatic: No palpable cervical or supraclavicular nodes. No lymphangitis Psych: Mood ok. Affect normal Neurological: Awake, alert, oriented. No gross abnormality - Constitutional Vitals: Vital Signs Temp Pulse Resp BP Pulse Ox 98.3 F 58 L 16 160/61 98 11/23/21 09:50 11/23/21 10:30 11/23/21 09:50 11/23/21 10:30 11/23/21 05:41 Temperature -Last 24 Hours Temperature 98.3 F Temperature 99.2 F Temperature 100.0 F Temperature 102.3 F Results - Labs CBC & Chem 7: 11/22/21 20:26 11/23/21 05:35 Labs: Abnormal lab results 11/22/21 11/22/21 11/23/21 Range/Units 20:26 20:26 01:35 WBC 14.5 H (4.5-11.0) K/mm3 RBC 2.99 L (3.65-5.03) M/mm3 Hgb 9.0 L (11.8-15.2) gm/dl Hct 27.6 L (35.5-45.6) % Seg Neuts % (Manual) 95.0 H (40.0-70.0) % Lymphocytes % (Manual) 0 L (13.4-35.0) % Seg Neutrophils # Man 13.8 H (1.8-7.7) K/mm3 Lymphocytes # (Manual) 0.0 L (1.2-5.4) K/mm3 D-Dimer 594.13 H (0-234) ng/mlDDU Chloride 97.4 L (98-107) mmol/L Carbon Dioxide 20 L (22-30) mmol/L BUN 27 H (9-20) mg/dL Creatinine 5.7 H (0.8-1.3) mg/dL Lactate Dehydrogenase (91-180) units/L C-Reactive Protein (0.00-1.30) mg/dL 11/23/21 11/23/21 Range/Units 01:35 05:35 WBC (4.5-11.0) K/mm3 RBC (3.65-5.03) M/mm3 Hgb (11.8-15.2) gm/dl Hct (35.5-45.6) % Seg Neuts % (Manual) (40.0-70.0) % Lymphocytes % (Manual) (13.4-35.0) % Seg Neutrophils # Man (1.8-7.7) K/mm3 Lymphocytes # (Manual) (1.2-5.4) K/mm3 D-Dimer (0-234) ng/mlDDU Chloride (98-107) mmol/L Carbon Dioxide 18 L (22-30) mmol/L BUN 30 H (9-20) mg/dL Creatinine 6.3 H (0.8-1.3) mg/dL Lactate Dehydrogenase 237 H (91-180) units/L C-Reactive Protein 3.30 H (0.00-1.30) mg/dL - Imaging and Cardiology Chest x-ray: report reviewed, image reviewed (b/l pneumonia) Assessment and Plan Cultures: 11/22/2021 blood culture: In process A/P: 75-year-old male with ESRD on HD, hypertension: #Sepsis, likely secondary to bilateral pneumonia #ESRD on HD: Renally adjust antibiotics Recs: -Continue empiric ceftriaxone, azithromycin -Follow-up COVID-19 PCR, although if positive, would not initiate remdesivir due to his ESRD. Only if he becomes hypoxic, would start negrito Black MD, FACP, [facility] O: [phone] F: [phone] C: [phone]
[2021-11-23 12:08] LABS: Hepatitis B Surface Antigen Non-Reactive (Negative); Hepatitis C Virus Antibody Non-Reactive (NonReactive)
--- NOTE | 2021-11-23 12:40 | Progress Note ---
Assessment and Plan Assessment and plan: #Sepsis #Community-acquired pneumonia #COVID PUI -Continue azithromycin and Rocephin; COVID PCR pending -Sputum culture ordered, blood cultures collected; urine sample not collected -elevated LDH, d-dimer; procalcitonin ordered -ID consulted, assistance appreciated #Hypotension-resolved #Hypertension -will resume home medications after dialysis #Acute metabolic encephalopathy -Resolved, likely secondary to hypotension #ESRD requiring dialysis -Patient on TTS schedule outpatient -Left upper extremity AV fistula access -Nephrology consulted, assistance appreciated -Plan for dialysis today -Avoid nephrotoxins, renally dose medications #Normocytic anemia -Hemoglobin 9, baseline unknown -Likely secondary to ESRD -We will transfuse for hemoglobin less than 7 #Physical debility -Wheelchair at home -No need for PT evaluation at this time #Advanced care planning -Disease education conducted, care plan discussed, diagnoses discussed, prognosis discussed, and patient acknowledges understanding with care plan -Time: +30 min History Interval history: Patient alert to person, place and situation. He reports being at home with his sister and not being able to respond to her calling by his name. He has never had any episodes like this in the past. He denies feeling unwell prior to this time. He currently has no complaints or discomfort. Hospitalist Physical - Physical exam Narrative exam: GENERAL: Thin elderly male. In no acute distress. HEENT: Edentulous. NECK: Supple. CHEST/LUNGS: CTAB on room air HEART/CARDIOVASCULAR: RRR. No murmur, rubs or gallops appreciated. ABDOMEN: +BS. NT/ND. SKIN: No rashes noted. NEURO: No focal motor deficit. Follows all commands. MUSCULOSKELETAL: No joint effusion EXTREMITIES: No cyanosis, clubbing or edema. PSYCH: Cooperative. - Constitutional Vitals: Temp Pulse Resp BP Pulse Ox 98.3 F 58 L 16 166/62 98 11/23/21 09:50 11/23/21 12:30 11/23/21 09:50 11/23/21 12:30 11/23/21 05:41 General appearance: Present: no acute distress, well-nourished Results - Labs CBC & Chem 7: 11/24/21 08:20 11/24/21 08:20 Labs: Laboratory Last Values WBC 14.5 K/mm3 (4.5-11.0) H 11/22/21 20:26 RBC 2.99 M/mm3 (3.65-5.03) L 11/22/21 20: Hgb 9.0 gm/dl (11.8-15.2) L 11/22/21 20: Hct 27.6 % (35.5-45.6) L 11/22/21 20: MCV 92 fl (84-94) 11/22/21 20: MCH 30 pg (28-32) 11/22/21: MCHC 33 % (32-34) 11/22/21 20: RDW 14.2 % (13.2-15.2) 11/22/21 20: Plt Count 402 K/mm3 (140-440) 11/22/21 20: Add Manual Diff Complete 11/22/21 20: Total Counted 100 11/22/21 20: Seg Neuts % (Manual) 95.0 % (40.0-70.0) H 11/22/21 20: Band Neutrophils % 0 % 11/22/21 20: Lymphocytes % (Manual) 0 % (13.4-35.0) L 11/22/21 20: Reactive Lymphs % (Man) 0 % 11/22/21: Monocytes % (Manual) 4.0 % (0.0-7.3) 11/22/21: Eosinophils % (Manual) 1.0 % (0.0-4.3) 11/22/21 20: Basophils % (Manual) 0 % (0.0-1.8) 11/22/21 20: Metamyelocytes % 0 % 11/22/21 20: Myelocytes % 0 % 11/22/21 20: Promyelocytes % 0 % 11/22/21 20: Blast Cells % 0 % 11/22/21 20: Nucleated RBC % Not Reportable 11/22/21 20: Seg Neutrophils # Man 13.8 K/mm3 (1.8-7.7) H 11/22/21 20: Band Neutrophils # 0.0 K/mm3 11/22/21 20: Lymphocytes # (Manual) 0.0 K/mm3 (1.2-5.4) L 11/22/21 20: Abs React Lymphs (Man) 0.0 K/mm3 11/22/21 20:26 Monocytes # (Manual) 0.6 K/mm3 (0.0-0.8) 11/22/21 20:26 Eosinophils # (Manual) 0.1 K/mm3 (0.0-0.4) 11/22/21 20:26 Basophils # (Manual) 0.0 K/mm3 (0.0-0.1) 11/22/21 20:26 Metamyelocytes # 0.0 K/mm3 11/22/21 20:26 Myelocytes # 0.0 K/mm3 11/22/21 20:26 Promyelocytes # 0.0 K/mm3 11/22/21 20:26 Blast Cells # 0.0 K/mm3 11/22/21 20:26 WBC Morphology Not Reportable 11/22/21 20:26 Hypersegmented Neuts Not Reportable 11/22/21 20:26 Hyposegmented Neuts Not Reportable 11/22/21 20:26 Hypogranular Neuts Not Reportable 11/22/21 20:26 Smudge Cells Not Reportable 11/22/21 20:26 Toxic Granulation Not Reportable 11/22/21 20:26 Toxic Vacuolation Not Reportable 11/22/21 20:26 Dohle Bodies Not Reportable 11/22/21 20:26 Pelger-Huet Anomaly Not Reportable 11/22/21 20:26 Alisha Rods Not Reportable 11/22/21 20:26 Platelet Estimate Consistent w auto 11/22/21 20:26 Clumped Platelets Not Reportable 11/22/21 20:26 Plt Clumps, EDTA Not Reportable 11/22/21 20:26 Large Platelets Not Reportable 11/22/21 20:26 Giant Platelets Not Reportable 11/22/21 20:26 Platelet Satelliting Not Reportable 11/22/21 20:26 Plt Morphology Comment Not Reportable 11/22/21 20:26 RBC Morphology Not Reportable 11/22/21 20:26 Dimorphic RBCs Not Reportable 11/22/21 20:26 Polychromasia Not Reportable 11/22/21 20:26 Hypochromasia Not Reportable 11/22/21 20:26 Poikilocytosis Not Reportable 11/22/21 20:26 Anisocytosis Not Reportable 11/22/21 20:26 Microcytosis Not Reportable 11/22/21 20:26 Macrocytosis Not Reportable 11/22/21 20:26 Spherocytes Not Reportable 11/22/21 20:26 Pappenheimer Bodies Not Reportable 11/22/21 20:26 Sickle Cells Not Reportable 11/22/21 20:26 Target Cells Not Reportable 11/22/21 20:26 Tear Drop Cells Not Reportable 11/22/21 20:26 Ovalocytes Not Reportable 11/22/21 20:26 Helmet Cells Not Reportable 11/22/21 20:26 Lou-Meyers Bodies Not Reportable 11/22/21 20:26 [place] Rings Not Reportable 11/22/21 20:26 [place] Cells Not Reportable 11/22/21 20:26 Bite Cells Not Reportable 11/22/21 20:26 Crenated Cell Not Reportable 11/22/21 20:26 Elliptocytes Not Reportable 11/22/21 20:26 Acanthocytes (Spur) Not Reportable 11/22/21 20:26 Rouleaux Not Reportable 11/22/21 20:26 Hemoglobin C Crystals Not Reportable 11/22/21 20:26 Schistocytes Not Reportable 11/22/21 20:26 Malaria parasites Not Reportable 11/22/21 20:26 Jg Bodies Not Reportable 11/22/21 20:26 Hem Pathologist Commnt No 11/22/21 20:26 D-Dimer 594.13 ng/mlDDU (0-234) H 11/23/21 01:35 Sodium 140 mmol/L (137-145) 11/23/21 05:35 Potassium 4.8 mmol/L (3.6-5.0) 11/23/21 05:35 Chloride 102.2 mmol/L (98-107) 11/23/21 05:35 Carbon Dioxide 18 mmol/L (22-30) L 11/23/21 05:35 Anion Gap 25 mmol/L 11/23/21 05:35 BUN 30 mg/dL (9-20) H 11/23/21 05:35 Creatinine 6.3 mg/dL (0.8-1.3) H 11/23/21 05:35 Estimated GFR 11 ml/min 11/23/21 05:35 BUN/Creatinine Ratio 5 % 11/23/21 05:35 Glucose 81 mg/dL (75-100) 11/23/21 05:35 Lactic Acid 0.70 mmol/L (0.7-2.0) 11/22/21 20:26 Calcium 8.8 mg/dL (8.4-10.2) 11/23/21 05:35 Total Bilirubin 0.50 mg/dL (0.1-1.2) 11/22/21 20:26 AST 19 units/L (5-40) 11/22/21 20:26 ALT 12 units/L (7-56) 11/22/21 20:26 Alkaline Phosphatase 74 units/L (35-129) 11/22/21 20:26 Lactate Dehydrogenase 237 units/L (91-180) H 11/23/21 01:35 C-Reactive Protein 3.30 mg/dL (0.00-1.30) H 11/23/21 01:35 Total Protein 7.7 g/dL (6.3-8.2) 11/22/21 20:26 Albumin 4.0 g/dL (3.9-5) 11/22/21 20:26 Albumin/Globulin Ratio 1.1 % 11/22/21 20:26 Hepatitis A IgM Ab Non-reactive (NonReactive) 11/23/21 10:00 Hep Bs Antigen Non-reactive (Negative) 11/23/21 10:00 Hep B Core IgM Ab Non-reactive (NonReactive) 11/23/21 10:00 Hepatitis C Antibody Non-reactive (NonReactive) 11/23/21 10:00 Microbiology: Microbiology 11/22/21 20:26 Peripheral/Venous Blood Culture - Preliminary Culture in Progress 11/22/21 20:26 Peripheral/Venous Blood Culture - Preliminary Culture in Progress Active Medications - Current Medications Current Medications: Generic Name Dose Route Start Last Admin Trade Name Freq PRN Reason Stop Dose Admin Acetaminophen 650 mg 11/22/21 22:56 Acetaminophen 325 Mg Tab PO Q4H PRN Pain MILD(1-3)/Fever >100.5/LIRA Azithromycin 500 mg 11/23/21 10:00 11/23/21 09:21 Azithromycin 250 Mg Tab PO 11/26/21 10:01 500 mg QDAY MICHA Administration Protocol Heparin Sodium (Porcine) 5,000 unit 11/23/21 06:00 11/23/21 05:45 Heparin 5,000 Unit/1 Ml Vial SUB-Q 5,000 unit Q8HR MICHA Administration Sodium Chloride 1,000 mls @ 125 mls/hr 11/22/21 23:00 Nacl 0.9% 1000 Ml IV DIRECT MICHA Ceftriaxone Sodium 2 gm in 100 mls @ 200 mls/hr 11/23/21 10:00 11/23/21 09:17 Rocephin/Ns 2 Gm/100 Ml IV 200 mls/hr Q24H MICHA Administration Protocol Sodium Chloride 100 mls @ 999 mls/hr 11/23/21 09:00 Nacl 0.9% IV ERICH PRN Hypotension Magnesium Hydroxide 30 ml 11/22/21 22:56 Magnesium Hydroxide (Mom) Oral Liqd Udc PO Q4H PRN Constipation Morphine Sulfate 2 mg 11/22/21 22:56 Morphine 2 Mg/1 Ml Inj IV Q4H PRN Pain, Moderate (4-6) Morphine Sulfate 4 mg 11/22/21 22:56 Morphine 4 Mg/1 Ml Inj IV Q4H PRN Pain , Severe (7-10) Ondansetron HCl 4 mg 11/22/21 22:56 Ondansetron 4 Mg/2 Ml Inj IV Q8H PRN Nausea And Vomiting Sodium Chloride 10 ml 11/23/21 10:00 11/23/21 09:21 Sodium Chloride 0.9% 10 Ml Flush Syringe IV 10 ml BID MICHA Administration Sodium Chloride 10 ml 11/22/21 22:56 Sodium Chloride 0.9% 10 Ml Flush Syringe IV PRN PRN LINE FLUSH
--- NOTE | 2021-11-23 18:16 | Consultation ---
History of Present Illness - Reason for Consult Consult date: 11/23/21 end stage renal disease - History of Present Illness This is a 75-year-old man with end-stage renal disease on hemodialysis, h ypertension and hyperlipidemia who presented to the emergency department with encephalopathy. Work-up in the emergency department was concerning for hypotension and sepsis. He was subsequently admitted and nephrology was consulted for ESRD management. Mental status had improved at the time of the visit. Patient denies chest pain, presyncope and syncope. Past History Past Medical History: dialysis, ESRD, hypertension Past Surgical History: Other (Left upper extremity AV fistula ) Social history: no significant social history Family history: no significant family history Medications and Allergies Allergies Allergy/AdvReac Type Severity Reaction Status Date / Time Beta-Blockers AdvReac Anaphylaxis Verified 11/23/21 14:15 (Beta-Adrenergic Bloc Home Medications Medication Instructions Recorded Confirmed Last Taken Type Acetaminophen [Acetaminophen TAB] 500 mg PO Q8HR PRN #20 09/14/20 08/12/21 Unknown Rx AtorvaSTATin [Lipitor] 40 mg PO QHS 30 Days #30 tablet 06/01/21 08/12/21 Unknown Rx Aspirin EC [Halfprin EC] 81 mg PO QDAY 08/12/21 08/12/21 Unknown History Calcium Acetate 667 mg PO TID 08/12/21 08/12/21 Unknown History Cholecalciferol Vit D3 [Vitamin D3 1,000 unit PO QDAY 08/12/21 08/12/21 Unknown History 1,000 UNIT TAB] Folic Acid/Vit B Comp W-C [Renal 1 cap PO QDAY 08/12/21 08/12/21 Unknown History Caps] Furosemide [Lasix TAB] 40 mg PO QDAY 08/12/21 08/12/21 Unknown History NIFEdipine [Procardia Xl] 30 mg PO QDAY 08/12/21 08/12/21 Unknown History traMADoL [Ultram 50 MG tab] 50 mg PO Q6HR PRN 08/12/21 08/12/21 Unknown History Ciprofloxacin HCl [Ciprofloxacin 100 mg PO DAILY #7 09/28/21 Unknown Rx TAB] Aspirin EC [Halfprin EC] 81 mg PO QDAY 11/23/21 11/23/21 11/21/21 History AtorvaSTATin [Lipitor] 40 mg PO QHS 11/23/21 11/23/21 11/21/21 History Calcium Acetate [Phoslo] 667 mg PO TID 11/23/21 11/23/21 11/21/21 History Furosemide [Lasix] 40 mg PO DAILY 11/23/21 11/23/21 11/21/21 History Isosorbide Mononitrate [Isosorbide 60 mg PO QDAY 11/23/21 11/23/21 11/21/21 History Mononitrate ER] NIFEdipine XL [Procardia Xl] 30 mg PO BID 11/23/21 11/23/21 11/21/21 History Tizanidine HCl 2 mg PO DAILY PRN 11/23/21 11/23/21 11/21/21 History Vit B Comp No.3/Folic/C/Biotin 1 tab PO QDAY 11/23/21 11/23/21 11/21/21 History [Ayanna-Inderjit Rx Tablet] Active Meds: Active Medications Acetaminophen (Acetaminophen 325 Mg Tab) 650 mg PO Q4H PRN PRN Reason: Pain MILD(1-3)/Fever >100.5/LIRA Azithromycin (Azithromycin 250 Mg Tab) 500 mg PO QDAY MICHA; Protocol Stop: 11/26/21 10:01 Last Admin: 11/23/21 09:21 Dose: 500 mg Heparin Sodium (Porcine) (Heparin 5,000 Unit/1 Ml Vial) 5,000 unit SUB-Q Q8HR MICHA Last Admin: 11/23/21 14:19 Dose: 5,000 unit Sodium Chloride (Nacl 0.9% 1000 Ml) 1,000 mls @ 125 mls/hr IV DIRECT MICHA Ceftriaxone Sodium (Rocephin/Ns 2 Gm/100 Ml) 2 gm in 100 mls @ 200 mls/hr IV Q24H MICHA; Protocol Last Admin: 11/23/21 09:17 Dose: 200 mls/hr Sodium Chloride (Nacl 0.9%) 100 mls @ 999 mls/hr IV ERICH PRN PRN Reason: Hypotension Magnesium Hydroxide (Magnesium Hydroxide (Mom) Oral Liqd Udc) 30 ml PO Q4H PRN PRN Reason: Constipation Morphine Sulfate (Morphine 2 Mg/1 Ml Inj) 2 mg IV Q4H PRN PRN Reason: Pain, Moderate (4-6) Morphine Sulfate (Morphine 4 Mg/1 Ml Inj) 4 mg IV Q4H PRN PRN Reason: Pain , Severe (7-10) Ondansetron HCl (Ondansetron 4 Mg/2 Ml Inj) 4 mg IV Q8H PRN PRN Reason: Nausea And Vomiting Sodium Chloride (Sodium Chloride 0.9% 10 Ml Flush Syringe) 10 ml IV BID MICHA Last Admin: 11/23/21 09:21 Dose: 10 ml Sodium Chloride (Sodium Chloride 0.9% 10 Ml Flush Syringe) 10 ml IV PRN PRN PRN Reason: LINE FLUSH Review of Systems All systems: negative Constitutional: fever, fatigue Neurological: confusion Exam - Vital Signs Vital signs: Vital Signs Temp Pulse Resp BP Pulse Ox 102.3 F H 88 16 186/89 98 11/22/21 20:20 11/22/21 20:20 11/22/21 20:20 11/22/21 20:20 11/22/21 20:20 - Physical Exam Narrative exam: Constitutional: no acute distress Head: NC/AT Neck: supple Lungs: clear to auscultation CV: RRR, no M/R/G Abdomen: soft, non-tender, bowel sounds present Back: nontender Extremities: no edema, pulses WNL Skin: intact Neuro: no focal deficits, alert and oriented x4 Results - Lab Results 11/22/21 20:26 11/23/21 05:35 Most recent lab results Calcium 8.8 mg/dL (8.4-10.2) 11/23/21 05:35 Assessment and Plan End-stage renal disease on hemodialysis Sepsis Hypotension Anemia of ESRD Hyperphosphatemia Hyperparathyroidism Hemodialysis today Assess daily for needs for additional sessions of dialysis Keep MAP more than 65 Antibiotics noted ID note reviewed Continue binders Epogen with HD as needed Renally dose medications ESRD diet with 1.2-1. 4 g/kg/d protein intake
[2021-11-23 19:29] LABS: Bacteria,Urine 3+ /HPF (Negative)
[2021-11-23 19:34] LABS: Color,Urine Yellow (Yellow); WBC,Urine > 182.0 /HPF (0.0-6.0)
[2021-11-24] MEDS: HEPARIN 5,000 UNIT/1 ML VIAL SUB-Q SCH ×2 (05:36→15:00)
[2021-11-24] MEDS ORDERED: hydrALAZINE 20 MG/1 ML INJ IV ONE ×2 (06:00)
[2021-11-24 08:45] LABS: Hematocrit 28.1 % (35.5-45.6); Hemoglobin 9.6 gm/dl (11.8-15.2); Mean Corpuscular HGB Conc 34 % (32-34); Mean Corpuscular Volume 92 fl (84-94); Platelet Count 345 K/mm3 (140-440); Red Blood Count 3.05 M/mm3 (3.65-5.03); Red Cell Distribution Width 14.7 % (13.2-15.2)
[2021-11-24] MEDS: cefTRIAXone/NS 2 GM/100 ML 2 GM/100 ML BAG IV SCH (09:12)
[2021-11-24] MEDS: AZITHROMYCIN 250 MG TAB PO SCH (09:13)
[2021-11-24 09:22] LABS: Calcium 9.1 mg/dL (8.4-10.2)
--- NOTE | 2021-11-24 11:12 | Progress Note ---
Assessment and Plan Cultures: 11/22/2021 blood culture: no growth COVID-19 PCR is negative A/P: 75-year-old male with ESRD on HD, hypertension: #Sepsis, likely secondary to bilateral pneumonia #ESRD on HD: Renally adjust antibiotics #UTI: UA with pyuria: Difficult to interpret given underlying ESRD, but patient does have some dysuria that is improving with Ceftriaxone. Recs: -COVID-19 PCR is negative, continue empiric ceftriaxone, azithromycin while inpatient, upon discharge, may switch to PO Ceftin 250 mg BID x 7 days Will sign off. Gabriel Black MD, FACP, [facility] O: [phone] F: [phone] C: [phone] Subjective Date of service: 11/24/21 Interval history: No fever. COVID-19 came back negative. On room air. Complains of mild dysuria Objective - Exam Narrative Exam: Physical Exam: Constitutional: Alert, cooperative. No acute distress Head, Ears, Nose: Normocephalic, atraumatic. External ears, nose normal Eyes: Conjunctivae/corneas clear. No icterus. No ptosis. Neck: Supple, no meningeal signs Cardiovascular: S1, S2 + Respiratory: Good air entry, clear to auscultation bilaterally GI: Soft, non-tender; bowel sounds normal. No peritoneal signs Musculoskeletal: No pedal edema, no cyanosis. Skin: No rash or abscess Hem/Lymphatic: No palpable cervical or supraclavicular nodes. No lymphangitis Psych: Mood ok. Affect normal Neurological: Awake, alert, oriented. No gross abnormality - Constitutional Vitals: Vital Signs Temp Pulse Resp BP Pulse Ox 98.4 F 67 20 169/51 100 11/24/21 05:51 11/24/21 07:32 11/24/21 05:51 11/24/21 07:32 11/24/21 07:32 Temperature -Last 24 Hours Temperature 98.4 F Temperature 98.5 F Temperature 98.9 F Temperature 97.9 F Temperature 97.8 F - Labs CBC & Chem 7: 11/24/21 08:20 11/24/21 08:20 Labs: Abnormal lab results 11/23/21 11/23/21 11/24/21 Range/Units 01:35 19:00 08:20 RBC 3.05 L (3.65-5.03) M/mm3 Hgb 9.6 L (11.8-15.2) gm/dl Hct 28.1 L (35.5-45.6) % BUN (9-20) mg/dL Creatinine (0.8-1.3) mg/dL Glucose (75-100) mg/dL Ferritin 1012.0 H (30.0-300.0) ng/mL Urine WBC (Auto) > 182.0 H (0.0-6.0) /HPF 11/24/21 Range/Units 08:20 RBC (3.65-5.03) M/mm3 Hgb (11.8-15.2) gm/dl Hct (35.5-45.6) % BUN 27 H (9-20) mg/dL Creatinine 5.8 H (0.8-1.3) mg/dL Glucose 110 H (75-100) mg/dL Ferritin (30.0-300.0) ng/mL Urine WBC (Auto) (0.0-6.0) /HPF
--- NOTE | 2021-11-24 14:21 | Discharge Summary ---
Providers - Providers Date of Admission: 11/22/21 22:57 Date of discharge: 11/24/21 Attending physician: CORINE OCHOA MD 11/22/21 22:56 Consult to Physician [CONS] Routine Comment: Consulting Provider: LORETTA ESTRADA Physician Instructions: Reason For Exam: ESRD - ON DIALYSIS 11/23/21 00:14 Consult to Physician [CONS] Routine Comment: Consulting Provider: MEGAN BURDEN Physician Instructions: Reason For Exam: PUI Primary care physician: MERLE CHAVEZ Hospitalization Reason for admission: Fever, acute encephalopathy Condition: Stable Hospital course: 75-year-old male with known history of ESRD on HD, hypertension and hyperlipidemia who presented due to altered mental status. He was found to be febrile and hypotensive in the emergency department. CT scan of the head was negative. Chest x-ray showed bilateral pneumonia. He was started on empiric IV antibiotics and fluids. Blood cultures were collected and negative for 48hours prior to discharge. His mental status improved significantly afterward. He was dialyzed once once clinically stable and was discharged home. Disposition: 01 HOME / SELF CARE / HOMELESS Final Discharge Diagnosis (Prints w/discharge instructions): Sepsis. Pneumonia secondary to gram-negative bacteria. Acute metabolic encephalopathy. COVID- pneumonia ruled out. Hypertension. Hypertension. ESRD requiring hemodialysis. Normocytic anemia. Physical debility Time spent for discharge: 45 minutes Core Measure Documentation - Palliative Care Palliative Care/ Comfort Measures: Not Applicable - Core Measures Any of the following diagnoses?: none Exam - Physical Exam Narrative exam: GENERAL: Thin elderly male. In no acute distress. HEENT: Edentulous. NECK: Supple. CHEST/LUNGS: CTAB on room air HEART/CARDIOVASCULAR: RRR. No murmur, rubs or gallops appreciated. ABDOMEN: +BS. NT/ND. SKIN: No rashes noted. NEURO: No focal motor deficit. Follows all commands. MUSCULOSKELETAL: No joint effusion EXTREMITIES: No cyanosis, clubbing or edema. PSYCH: Cooperative. - Constitutional Vitals: Temp Pulse Resp BP Pulse Ox 99.4 F 67 18 159/69 100 11/24/21 11:25 11/24/21 07:32 11/24/21 11:25 11/24/21 11:25 11/24/21 07:32 Plan Care Plan Goals: Follow-up with your primary care provider. Please take the antibiotic until it is complete. We found that you have pneumonia. Please make sure to continue to follow-up with dialysis. Follow up with: MERLE CHAVEZ MD [Primary Care Provider] - 7 Days Prescriptions: cefUROXime [Ceftin] 250 mg PO Q12H 7 Days #14 tab
[2021-11-24 17:20] VITALS: BP 173/63
--- NOTE | 2021-11-24 17:25 | Electrocardiograph Report ---
[facility] Test Date: 2021-11-22 Test Time: 21:24:11 Pat Name: VALENTINA DIAZ Department: Room: A374 1 Gender: M Complaint Investigations Officer: LINCOLN : 1945 Requested By: CASSIA ARMSTRONG Order Number: [id number] Reading MD: Cindy Luis Measurements Intervals [place] Rate: 75 P: 73 VT: 229 QRS: 62 QRSD: 88 T: 144 QT: 402 QTc: 448 Interpretive Statements Sinus rhythm Prolonged VT interval LVH with secondary repolarization abnormality T wave inversions, consider anterolateral ischemia No previous ECG available for comparison Electronically Signed On 11-24-2021 17:25:40 EDT by Cindy Luis
--- NOTE | 2021-11-24 21:45 | Progress Note ---
Assessment and Plan End-stage renal disease on hemodialysis Sepsis Hypotension Anemia of ESRD Hyperphosphatemia Hyperparathyroidism Hemodialysis yesterday, continue MWF Keep MAP more than 65 Antibiotics noted ID note reviewed Continue binders Epogen with HD as needed Renally dose medications ESRD diet with 1.2-1. 4 g/kg/d protein intake Subjective Date of service: 11/24/21 Principal diagnosis: Pneumonia Interval history: Resting in bed Vitals, labs and I/os reviewed Interdisciplinary notes and consults reviewed Objective - Exam Narrative Exam: Constitutional: no acute distress Head: NC/AT Neck: supple Lungs: clear to auscultation CV: RRR, no M/R/G Abdomen: soft, non-tender, bowel sounds present Back: nontender Extremities: no edema, pulses WNL Skin: intact Neuro: no focal deficits, alert and oriented x4 - Vital Signs Vital signs: Vital Signs - 12hr 11/24/21 11/24/21 11/24/21 11:25 12:00 16:37 Temperature 99.4 F 98.9 F Pulse Rate 61 Respiratory 18 18 18 Rate Blood Pressure 159/69 173/63 O2 Sat by Pulse 98 100 Oximetry - Lab 11/24/21 08:20 11/24/21 08:20 Most recent lab results Calcium 9.1 mg/dL (8.4-10.2) 11/24/21 08:20 Medications & Allergies - Medications Allergies/Adverse Reactions: Allergies Beta-Blockers (Beta-Adrenergic Bloc Adverse Reaction (Verified 11/23/21 14:15) Anaphylaxis Home Medications: Home Medications Medication Instructions Recorded Confirmed Last Taken Type Acetaminophen [Acetaminophen TAB] 500 mg PO Q8HR PRN #20 09/14/20 08/12/21 Unknown Rx Aspirin EC [Halfprin EC] 81 mg PO QDAY 08/12/21 08/12/21 Unknown History Calcium Acetate 667 mg PO TID 08/12/21 08/12/21 Unknown History Cholecalciferol Vit D3 [Vitamin D3 1,000 unit PO QDAY 08/12/21 08/12/21 Unknown History 1,000 UNIT TAB] Folic Acid/Vit B Comp W-C [Renal 1 cap PO QDAY 08/12/21 08/12/21 Unknown History Caps] Furosemide [Lasix TAB] 40 mg PO QDAY 08/12/21 08/12/21 Unknown History traMADoL [Ultram 50 MG tab] 50 mg PO Q6HR PRN 08/12/21 08/12/21 Unknown History AtorvaSTATin [Lipitor] 40 mg PO QHS 11/23/21 11/23/21 11/21/21 History Isosorbide Mononitrate [Isosorbide 60 mg PO QDAY 11/23/21 11/23/21 11/21/21 History Mononitrate ER] NIFEdipine XL [Procardia Xl] 30 mg PO BID 11/23/21 11/23/21 11/21/21 History Tizanidine HCl 2 mg PO DAILY PRN 11/23/21 11/23/21 11/21/21 History Vit B Comp No.3/Folic/C/Biotin 1 tab PO QDAY 11/23/21 11/23/21 11/21/21 History [Ayanna-Inderjit Rx Tablet] cefUROXime [Ceftin] 250 mg PO Q12H 7 Days #14 tab 11/24/21 Unknown Rx
== END 2021-11-24 17:10 | disposition home or self-care (01) | DRG 871 ==
LOC: EDBD → ED 19:40 → MERGE 22:57 → 3A 22:57
PROVIDERS: ADMIT Internal Medicine Geriatric Medicine; ATTEND Student in an Organized Health Care Education/Training Program
PROC: 5A1D70Z Performance of Urinary Filtration, Intermittent, Less than 6 Hours Per Day (ICD-10-PCS; principal; 2021-11-23)
DX: A41.9 Sepsis, unspecified organism (principal); G93.41 Metabolic encephalopathy; N18.6 End stage renal disease; J15.6 Pneumonia due to other Gram-negative bacteria; I12.0 Hypertensive chronic kidney disease with stage 5 chronic kidney disease or end stage renal disease; N39.0 Urinary tract infection, site not specified; Z20.822 Contact with and (suspected) exposure to COVID-19; Z99.2 Dependence on renal dialysis; E78.5 Hyperlipidemia, unspecified; E21.3 Hyperparathyroidism, unspecified; R53.81 Other malaise; D64.9 Anemia, unspecified; D63.1 Anemia in chronic kidney disease; Z79.82 Long term (current) use of aspirin; Z88.8 Allergy status to other drugs, medicaments and biological substances
CPT/HCPCS: 36415; 70450; 71045; 80048; 80053; 80074; 81001; 82140; 82728; 82947; 83615; 84145; 85007; 85025; 85027; 85379; 86140; 87040; 93005; 96365; 99285; G0378; J0360; J0456; J0696; J1644; J7030; U0003